=== PATIENT | female | born 1965 | race African-American/Black ===

== ENCOUNTER 2016-06-01 13:41 | Inpatient (IN) | payer OTHER ==
[2016-06-01 13:59] VITALS: BMI 23.5
--- NOTE | 2016-06-01 14:18 | HP ---
CIWA Score - CIWA Score Nausea/Vomitin Muscle Tremors: 3 Anxiety: 3 Agitation: 2 Paroxysmal Sweats: 1-Minimal Palms Moist Orientation: 0-Oriented Tacttile Disturbances: 2-Mild Itch/Numbness/Burn Auditory Disturbances: 2-Mild Harshness/Frighten Visual Disturbances: 2-Mild Sensitivity Headache: 2-Mild CIWA-Ar Total Score: 20 Admission ROS BHS - HPI Chief Complaint: i need help to stop drinking alcohol and cocaine Allergies/Adverse Reactions: Allergies Allergy/AdvReac Type Severity Reaction Status Date / Time lisinopril Allergy Intermediate Swelling Verified 06/01/16 15:27 erythromycin base AdvReac Rash Verified 06/01/16 15:27 sulfamethoxazole AdvReac Rash Verified 06/01/16 15:27 [From Bactrim] trimethoprim [From Bactrim] AdvReac Rash Verified 06/01/16 15:27 History of Present Illness: this 50 years old female with alcohol and cocaine dependence,withdrawal symptom, last detox [facility] 02/04/16 to 02/08/16 multiple admissions to detox htn,asthma,copd,hiv,hypercholesterolemia longest period of sobriety 3 years weight loss nicotine dependence Exam Limitations: No Limitations - Ebola screening Have you traveled outside of the country in the last 21 days: No Have you had contact with anyone from an Ebola affected area: No Have you been sick,other than usual withdrawal symptoms: No Do you have a fever: No - Review of Systems Constitutional: Loss of Appetite, Malaise, Night Sweats, Changes in sleep, Weakness, Unintentional Wgt. Loss EENT: reports: Nose Congestion Respiratory: reports: Wheezing Cardiac: reports: Palpitations GI: reports: Diarrhea, Nausea, Vomiting, Abdominal cramping : reports: No Symptoms Reported Musculoskeletal: reports: Back Pain, Muscle Pain Integumentary: reports: Dryness Neuro: reports: Headache, Tremors Endocrine: reports: No Symptoms Reported Hematology: reports: No Symptoms Reported, Other (hiv) Psychiatric: reports: Depressed Patient History - Patient Medical History Hx Anemia: No Hx Asthma: Yes (on albuterol inhaler) Hx Chronic Obstructive Pulmonary Disease (COPD): Yes Hx Cancer: No Hx Cardiac Disorders: No Hx Congestive Heart Failure: No Hx Hypertension: Yes (on med) Hx Hypercholesterolemia: Yes (on med) Hx Pacemaker: No HX Cerebrovascular Accident: No Hx Seizures: No Hx Dementia: No Hx Diabetes: No Hx Gastrointestinal Disorders: Yes (GERD) Hx Liver Disease: No Hx Genitourinary Disorders: No Hx Sexually Transmitted Disorders: No Hx Renal Disease (ESRD): No Hx Thyroid Disease: No Hx Human Immunodeficiency Virus (HIV): Yes (on Stribild since 2013) Hx Hepatitis C: No Hx Depression: Yes (on meds) Hx Suicide Attempt: No Hx Bipolar Disorder: No Hx Schizophrenia: No Other Medical History: no suicidal,no homicidal - Patient Surgical History Past Surgical History: Yes Hx Neurologic Surgery: No Hx Cataract Extraction: No Hx Cardiac Surgery: No Hx Lung Surgery: No Hx Breast Surgery: No Hx Breast Biopsy: No Hx Abdominal Surgery: No Hx Appendectomy: No Hx Cholecystectomy: No Hx Genitourinary Surgery: No Hx Section: No Hx Orthopedic Surgery: No Other Surgical History: ectopic since age 30 yeras old right ectopic Anesthesia Reaction: No - PPD History Previous Implant?: Yes Documented Results: Negative w/proof Implanted On Prior [facility] Admission?: Yes Date: 07/03/15 Results: 0 mm PPD to be Administered?: No - Reproductive History Patient is a Female of Child Bearing Age (11 -55 yrs old): Yes Last Menstrual Period: 06/13/11 Patient : No - Smoking Cessation Smoking history: Current every day smoker Have you smoked in the past 12 months: Yes Aproximately how many cigarettes per day: 10 Hx Chewing Tobacco Use: No Initiated information on smoking cessation: Yes 'Breaking Loose' booklet given: 06/01/16 - Substance & Tx. History Hx Alcohol Use: Yes Hx Substance Use: Yes Substance Use Type: Alcohol, Cocaine Hx Substance Use Treatment: Yes (last detox 02/04/16 to 02/08/16) - Substances Abused Alcohol Route: Oral Frequency: Daily Amount used: 1/5th of vodka/3 of 24 ozs of beer Age of first use: 16 Date of Last Use: 05/31/16 Cocaine Route: Smoking Frequency: Daily Amount used: 150$ Age of first use: 18 Date of Last Use: 05/31/16 Family Disease History - Family Disease History Family Disease History: Diabetes: Father (alcohol,), Mother (alcohol, ), Heart Disease: Father, Mother, CA: Father, Mother, Respiratory: Father, Daughter Admission Physical Exam BHS - Vital Signs Vital Signs: Vital Signs - 24 hr 06/01/16 13:55 Temperature 96.8 F L Pulse Rate 102 H Respiratory 18 Rate Blood Pressure 137/80 - Physical General Appearance: Yes: Moderate Distress, Tremorous, Irritable, Sweating, Anxious HEENTM: Yes: Nasal Congestion Respiratory: Yes: Lungs Clear Neck: Yes: Within Normal Limits Breast: Yes: Breast Exam Deferred Cardiology: Yes: Tachycardia Abdominal: Yes: Normal Bowel Sounds, Non Tender, Soft Genitourinary: Yes: Within Normal Limits Back: Yes: Muscle Spasm Musculoskeletal: Yes: Back pain, Muscle Pain Extremities: Yes: Tremors Neurological: Yes: staffing coordinator II-XII NML intact, Fully Oriented, Alert, Motor Strength 5/5 Integumentary: Yes: Dry Lymphatic: Yes: Within Normal Limits - Diagnostic (1) Alcohol dependence with withdrawal, uncomplicated Current Visit: No Status: Acute (2) MDD (major depressive disorder) Current Visit: No Status: Acute (3) Asthma Current Visit: No Status: Chronic Qualifiers: Asthma severity: moderate persistent Asthma complication type: with acute exacerbation Qualified Code(s): J45.41 - Moderate persistent asthma with (acute) exacerbation (4) COPD (chronic obstructive pulmonary disease) Current Visit: No Status: Chronic Qualifiers: COPD type: COPD with acute exacerbation Qualified Code(s): J44.1 - Chronic obstructive pulmonary disease with (acute) exacerbation (5) Cocaine dependence Current Visit: No Status: Chronic Qualifiers: Substance use status: uncomplicated Qualified Code(s): F14.20 - Cocaine dependence, uncomplicated (6) Essential hypertension Current Visit: No Status: Chronic (7) GERD (gastroesophageal reflux disease) Current Visit: No Status: Chronic Qualifiers: Esophagitis presence: without esophagitis Qualified Code(s): K21.9 - Gastro-esophageal reflux disease without esophagitis (8) HIV infection Current Visit: No Status: Chronic (9) Nicotine dependence Current Visit: No Status: Chronic Qualifiers: Nicotine product type: cigarettes Substance use status: uncomplicated Qualified Code(s): F17.210 - Nicotine dependence, cigarettes, uncomplicated (10) Weight loss Current Visit: Yes Status: Acute Cleared for Admission BHS - Detox or Rehab S Level of Care: Medically Managed Detox Regimen/Protocol: Librium S Breath Alcohol Content Breath Alcohol Content: 0 Urine Pregancy Test - Result Urine Test Results: Negative- NO Line Present Urine Drug Screen - Results Drug Screen Negative: No Urine Drug Screen Results: CHRISTOPHE-Cocaine, TCA-Tricyclic Antidepress
[2016-06-01] MEDS ORDERED: diphenhydrAMINE HCL 50 MG CAPSULE PO PRN (14:42)
[2016-06-01] MEDS ORDERED: hydrOXYzine PAMOATE 25 MG CAPSULE (FP) PO PRN (14:42)
[2016-06-01] MEDS ORDERED: ACETAMINOPHEN 325 MG TABLET (FP) PO PRN (14:42)
[2016-06-01] MEDS ORDERED: MAG HYDROX/AL HYDROX/SIMETH 30 ML UNIT-DOSE CUP PO PRN (14:42)
[2016-06-01] MEDS ORDERED: MENTHOL/PHENOL 1 EACH UD MM PRN (14:42)
[2016-06-01] MEDS ORDERED: guaiFENesin/D-METHORPHAN HB 10 ML UNIT-DOSE CUPS PO PRN (14:42)
[2016-06-01] MEDS ORDERED: P-EPHED 60MG/TRIPROLIDI 2.5MG TABLET PO PRN (14:42)
[2016-06-01] MEDS ORDERED: chlordiazePOXIDE HCL 25 MG CAPSULE PO ONE (14:42)
[2016-06-01] MEDS ORDERED: MAGNESIUM HYDROX 2400MG/30ML ORAL SUSPENSION 30 ML CUP PO PRN (14:42)
[2016-06-01] MEDS ORDERED: MAGNESIUM CITRATE 300 ML BOTTLE PO PRN (14:42)
[2016-06-01] MEDS ORDERED: LOPERAMIDE HCL 2 MG CAPSULE PO PRN (14:42)
[2016-06-01] MEDS ORDERED: chlordiazePOXIDE HCL 25 MG CAPSULE PO PRN (14:42)
[2016-06-01] MEDS: chlordiazePOXIDE HCL 25 MG CAPSULE PO SCH ×2 (17:37→22:36)
[2016-06-01] MEDS: ALBUTEROL SO4 6.7 GM HFA INHALER IH PRN (20:12)
[2016-06-01] MEDS: THIAMINE HCL 100 MG TABLET (FP) PO SCH (22:35)
[2016-06-01] MEDS: ATORVASTATIN CA 20 MG TABLET (FP) PO SCH (22:36)
[2016-06-01] MEDS: ACLIDINIUM BROMIDE 400 MCG/INH AERO.POWD IH SCH (23:36)
[2016-06-02] MEDS: chlordiazePOXIDE HCL 25 MG CAPSULE PO SCH ×4 (05:54→22:30)
[2016-06-02] MEDS: ALBUTEROL SO4 6.7 GM HFA INHALER IH PRN ×2 (05:55→14:04)
[2016-06-02] MEDS: amLODIPine BESYLATE 10 MG TABLET (FP) PO SCH (09:30)
[2016-06-02] MEDS: HYDROCHLOROTHIAZIDE 25 MG TABLET (FP) PO SCH (09:30)
[2016-06-02] MEDS: ASPIRIN COATED 81 MG TABLET.EC PO SCH (09:30)
[2016-06-02] MEDS: PRENATAL VITAMINS W/ FOLIC ACID TABLET (FP) PO SCH (09:30)
[2016-06-02] MEDS: PANTOPRAZOLE 40 MG TABLET (FP) PO SCH (09:30)
[2016-06-02 10:32] LABS: MCH 28.2 pg (25.7-33.7); MCHC 33.4 g/dl (32.0-36.0); MEAN CELL VOLUME 84.5 fl (80-96); MEAN PLT VOLUME 7.9 fl (7.5-11.1); PLATELET COUNT 259 K/MM3 (134-434); RDW 15.9 % (11.6-15.6); WHITE BLOOD COUNT 5.6 K/mm3 (4.0-10.0)
[2016-06-02 10:55] LABS: ALBUMIN 3.2 g/dl (3.4-5.0); ALK PHOS 117 U/L (45-117); ANION GAP 9 (8-16); BILIRUBIN,TOTAL 0.2 mg/dL (0.2-1.0); CALCIUM 8.4 mg/dL (8.5-10.1); CO2 27 mmol/L (21-32); CREATININE 0.9 mg/dL (0.55-1.02); GLUCOSE,RANDOM 75 mg/dL (74-106); SGOT/AST 25 U/L (15-37); SGPT/ALT 29 U/L (12-78); TOT PROT 6.7 g/dl (6.4-8.2)
[2016-06-02] MEDS: ACLIDINIUM BROMIDE 400 MCG/INH AERO.POWD IH SCH (11:59)
[2016-06-02] MEDS ORDERED: POTASSIUM CHLORIDE TABS 20 MEQ TABLET.ER (FP) PO ONE (13:04)
--- NOTE | 2016-06-02 13:04 | PN ---
S CIWA - CIWA Score Nausea/Vomitin Muscle Tremors: 3 Anxiety: 3 Agitation: 3 Paroxysmal Sweats: 2 Orientation: 0-Oriented Tacttile Disturbances: 1-Very Mild Itch/Numbness Auditory Disturbances: 1-Very Mild Visual Disturbances: 1-Very Mild Sensitivity Headache: 2-Mild CIWA-Ar Total Score: 19 BHS Progress Note (SOAP) Subjective: alert,irritable,anxious,interrupted sleep,tremor,nausea Objective: 06/02/16 13:01 Vital Signs Temperature 97.9 F 06/02/16 09:37 Pulse Rate 91 H 06/02/16 09:37 Respiratory Rate 18 06/02/16 09:37 Blood Pressure 152/98 06/02/16 09:37 O2 Sat by Pulse Oximetry (%) ekg nsr with 1st degree av block no chest pain,no sob,no dizziness Laboratory Last Values WBC 5.6 K/mm3 (4.0-10.0) 06/02/16 07:45 RBC 4.32 M/mm3 (3.60-5.2) 06/02/16 07:45 Hgb 12.2 GM/dL (10.7-15.3) 06/02/16 07:45 Hct 36.5 % (32.4-45.2) 06/02/16 07:45 MCV 84.5 fl (80-96) 06/02/16 07:45 MCHC 33.4 g/dl (32.0-36.0) 06/02/16 07:45 RDW 15.9 % (11.6-15.6) H 06/02/16 07:45 Plt Count 259 K/MM3 (134-434) 06/02/16 07:45 MPV 7.9 fl (7.5-11.1) 06/02/16 07:45 Sodium 143 mmol/L (136-145) 06/02/16 07:45 Potassium 3.1 mmol/L (3.5-5.1) L 06/02/16 07:45 Chloride 107 mmol/L (98-107) 06/02/16 07:45 Carbon Dioxide 27 mmol/L (21-32) 06/02/16 07:45 Anion Gap 9 (8-16) 06/02/16 07:45 BUN 13 mg/dL (7-18) D 06/02/16 07:45 Creatinine 0.9 mg/dL (0.55-1.02) 06/02/16 07:45 Creat Clearance w eGFR > 60 (>60) 06/02/16 07:45 Random Glucose 75 mg/dL (74-106) D 06/02/16 07:45 Calcium 8.4 mg/dL (8.5-10.1) L 06/02/16 07:45 Total Bilirubin 0.2 mg/dL (0.2-1.0) D 06/02/16 07:45 AST 25 U/L (15-37) D 06/02/16 07:45 ALT 29 U/L (12-78) D 06/02/16 07:45 Alkaline Phosphatase 117 U/L (45-117) 06/02/16 07:45 Total Protein 6.7 g/dl (6.4-8.2) 06/02/16 07:45 Albumin 3.2 g/dl (3.4-5.0) L 06/02/16 07:45 labs pending hypokalemia Assessment: 06/02/16 13:03 withdrawal symptom Plan: continue detox,k dur 20 meq po now then bid,k is 3.1
[2016-06-02] MEDS: ATORVASTATIN CA 20 MG TABLET (FP) PO SCH (22:30)
[2016-06-02] MEDS: THIAMINE HCL 100 MG TABLET (FP) PO SCH (22:30)
[2016-06-02] MEDS: POTASSIUM CHLORIDE TABS 20 MEQ TABLET.ER (FP) PO SCH (22:30)
[2016-06-03] MEDS: ACLIDINIUM BROMIDE 400 MCG/INH AERO.POWD IH SCH ×3 (00:12→22:43)
--- NOTE | 2016-06-03 00:48 | EKG ---
Test Reason : Blood Pressure : / mmHG Vent. Rate : 083 BPM Atrial Rate : 083 BPM P-R Int : 212 ms QRS Dur : 090 ms QT Int : 398 ms P-R-T Axes : 074 054 077 degrees QTc Int : 467 ms SINUS RHYTHM WITH 1ST DEGREE A-V BLOCK POSSIBLE LEFT ATRIAL ENLARGEMENT ANTEROSEPTAL INFARCT , AGE UNDETERMINED POOR R WAVE PROGRESSION ABNORMAL ECG NO PREVIOUS ECGS AVAILABLE Confirmed by ONEIL BELCHER, RAHEL ([id number]) on 06/03/2016 12:48:08 AM Referred By: Confirmed By:RAHEL RIGGS MD
[2016-06-03] MEDS: ALBUTEROL SO4 2.5/IPRATROPIUM 0.5 INH SOL 3 ML VIAL.NEB. NEB PRN ×2 (04:55→14:09)
[2016-06-03] MEDS: chlordiazePOXIDE HCL 25 MG CAPSULE PO SCH ×2 (06:03→10:36)
[2016-06-03 10:24] LABS: URINE APPEARANCE CLEAR; URINE BILIRUBIN NEGATIVE (NEGATIVE); URINE BLOOD NEGATIVE (NEGATIVE); URINE COLOR STRAW; URINE GLUCOSE (UA) NEGATIVE (NEGATIVE); URINE KETONE NEGATIVE (NEGATIVE); URINE LEUK ESTERASE NEGATIVE (NEGATIVE); URINE NITRITE NEGATIVE (NEGATIVE); URINE PROTEIN NEGATIVE (NEGATIVE); URINE UROBILINOGEN NEGATIVE E.U./dl (0.2-1.0)
[2016-06-03] MEDS: PRENATAL VITAMINS W/ FOLIC ACID TABLET (FP) PO SCH (10:36)
[2016-06-03] MEDS: POTASSIUM CHLORIDE TABS 20 MEQ TABLET.ER (FP) PO SCH ×2 (10:37→22:27)
[2016-06-03] MEDS: ASPIRIN COATED 81 MG TABLET.EC PO SCH (10:37)
[2016-06-03] MEDS: amLODIPine BESYLATE 10 MG TABLET (FP) PO SCH (10:37)
[2016-06-03] MEDS: HYDROCHLOROTHIAZIDE 25 MG TABLET (FP) PO SCH (10:37)
[2016-06-03] MEDS: PANTOPRAZOLE 40 MG TABLET (FP) PO SCH (10:37)
[2016-06-03] MEDS: HYDROCORTISONE 1% TOPICAL CREAM 30 GM TUBE TP SCH ×2 (10:40→22:27)
--- NOTE | 2016-06-03 11:54 | CONSULT ---
[facility] - Data Date of interview: 06/03/16 [facility] Identifying data: Readmission to [facility] for this 51 y/o AA female seeking detox treatment on for alcohol and cocaine dependence.Patient is ,a mother of two,domiciled,unemployed and supported on [employer] funds. Substance Abuse History: - Smoking Cessation. Smoking history: Current every day smoker. Have you smoked in the past 12 months: Yes. Aproximately how many cigarettes per day: 10. Hx Chewing Tobacco Use: No. Initiated information on smoking cessation: Yes. 'Breaking Loose' booklet given: 06/01/16. - Substance & Tx. History. Hx Alcohol Use: Yes. Hx Substance Use: Yes. Substance Use Type : Alcohol, Cocaine. Hx Substance Use Treatment: Yes (last detox 02/04/16 to ). - Substances Abused. Alcohol. Route: Oral. Frequency: Daily. Amount used: 1/5th of vodka/3 of 24 ozs of beer. Age of first use: 16. Date of Last Use: 05/31/16. Cocaine. Route: Smoking. Frequency: Daily. Amount used: 150$. Age of first use: 18. Date of Last Use: 05/31/16. Patient confirmed this pattern of substance use in my interview. Medical History: HIV infection since 2013 (on ART medications),hypertension,COPD ,GERD,bronchial asthma and hypercholesterolemia.Noted past history of ectopic . Psychiatric History: No reported history of psychiatric hospitalizations.Screened for depressive disorder at [facility] (2013 ) and referred to OPD clinic with script for sertraline.Ms Lopez did not follow through with the recommended careplan.She returned to follow up months later and ,this time,she maintains adherence to medications prescribed by her psychiatrist at the [facility] in the [place] (formerly [facility] ).Medications consist of seroquel 400 mg/hs + zoloft 50 mg/day (self-report) .Patient denies history of suicide attempts. Physical/Sexual Abuse/Trauma History: Patient denies. Additional Comment: Urine Drug Screen Results: CHRISTOPHE-Cocaine, TCA-Tricyclic Antidepressants.Noted. Mental Status Exam - Mental Status Exam Alert and Oriented to: Time, Place, Person Cognitive Function: Good Patient Appearance: Well Groomed Mood: Withdrawn, Hopeful Affect: Appropriate, Normal Range Patient Behavior: Fatigued, Appropriate, Cooperative Speech Pattern: Clear Voice Loudness: Normal Thought Process: Goal Oriented Thought Disorder: Not Present Hallucinations: Denies Suicidal Ideation: Denies Homicidal Ideation: Denies Insight/Judgement: Poor Sleep: Poorly, Difficulty falling asleep Appetite: Good Muscle strength/Tone: Normal Gait/Station: Normal Psychiatric Findings - Problem List ([place] 1, 2,3) (1) Alcohol dependence with withdrawal, uncomplicated Current Visit: Yes Status: Acute (2) Cocaine dependence Current Visit: Yes Status: Acute Qualifiers: Substance use status: uncomplicated Qualified Code(s): F14.20 - Cocaine dependence, uncomplicated (3) Nicotine dependence Current Visit: Yes Status: Acute Qualifiers: Nicotine product type: cigarettes Substance use status: uncomplicated Qualified Code(s): F17.210 - Nicotine dependence, cigarettes, uncomplicated (4) Drug-induced mood disorder Current Visit: Yes Status: Acute (5) MDD (major depressive disorder) Current Visit: Yes Status: Chronic (6) Asthma Current Visit: Yes Status: Chronic Qualifiers: Asthma severity: moderate persistent Asthma complication type: with acute exacerbation Qualified Code(s): J45.41 - Moderate persistent asthma with (acute) exacerbation (7) COPD (chronic obstructive pulmonary disease) Current Visit: Yes Status: Chronic Qualifiers: COPD type: COPD with acute exacerbation Qualified Code(s): J44.1 - Chronic obstructive pulmonary disease with (acute) exacerbation (8) Essential hypertension Current Visit: Yes Status: Chronic (9) GERD (gastroesophageal reflux disease) Current Visit: Yes Status: Chronic Qualifiers: Esophagitis presence: without esophagitis Qualified Code(s): K21.9 - Gastro-esophageal reflux disease without esophagitis - Initial Treatment Plan Initial Treatment Plan: Psychoeducation.Detoxification.Medications : zoloft 100 mg po daily + seroquel 100 mg po hs.Side effects/benefits discussed with the patient.She agrees with this plan.Observation.
--- NOTE | 2016-06-03 12:31 | PN ---
S CIWA - CIWA Score Nausea/Vomitin Muscle Tremors: 3 Anxiety: 2 Agitation: 3 Paroxysmal Sweats: 1-Minimal Palms Moist Orientation: 0-Oriented Tacttile Disturbances: 1-Very Mild Itch/Numbness Auditory Disturbances: 1-Very Mild Visual Disturbances: 1-Very Mild Sensitivity Headache: 2-Mild CIWA-Ar Total Score: 17 BHS Progress Note (SOAP) Subjective: ALERT,IRRITABLE,ANXIOUS,INTERRUPTED SLEEP,TREMOR Objective: 06/03/16 12:30 Vital Signs Temperature 97.0 F L 06/03/16 10:00 Pulse Rate 97 H 06/03/16 10:00 Respiratory Rate 20 06/03/16 10:00 Blood Pressure 155/96 06/03/16 10:00 O2 Sat by Pulse Oximetry (%) Laboratory Last Values WBC 5.6 K/mm3 (4.0-10.0) 06/02/16 07:45 RBC 4.32 M/mm3 (3.60-5.2) 06/02/16 07:45 Hgb 12.2 GM/dL (10.7-15.3) 06/02/16 07:45 Hct 36.5 % (32.4-45.2) 06/02/16 07:45 MCV 84.5 fl (80-96) 06/02/16 07:45 MCHC 33.4 g/dl (32.0-36.0) 06/02/16 07:45 RDW 15.9 % (11.6-15.6) H 06/02/16 07:45 Plt Count 259 K/MM3 (134-434) 06/02/16 07:45 MPV 7.9 fl (7.5-11.1) 06/02/16 07:45 Sodium 143 mmol/L (136-145) 06/02/16 07:45 Potassium 3.1 mmol/L (3.5-5.1) L 06/02/16 07:45 Chloride 107 mmol/L (98-107) 06/02/16 07:45 Carbon Dioxide 27 mmol/L (21-32) 06/02/16 07:45 Anion Gap 9 (8-16) 06/02/16 07:45 BUN 13 mg/dL (7-18) D 06/02/16 07:45 Creatinine 0.9 mg/dL (0.55-1.02) 06/02/16 07:45 Creat Clearance w eGFR > 60 (>60) 06/02/16 07:45 Random Glucose 75 mg/dL (74-106) D 06/02/16 07:45 Calcium 8.4 mg/dL (8.5-10.1) L 06/02/16 07:45 Total Bilirubin 0.2 mg/dL (0.2-1.0) D 06/02/16 07:45 AST 25 U/L (15-37) D 06/02/16 07:45 ALT 29 U/L (12-78) D 06/02/16 07:45 Alkaline Phosphatase 117 U/L (45-117) 06/02/16 07:45 Total Protein 6.7 g/dl (6.4-8.2) 06/02/16 07:45 Albumin 3.2 g/dl (3.4-5.0) L 06/02/16 07:45 Urine Color Straw 06/03/16 07:00 Urine Appearance Clear 06/03/16 07:00 Urine pH 7.0 (5.0-8.0) 06/03/16 07:00 Ur Specific [place] 1.010 (1.001-1.035) 06/03/16 07:00 Urine Protein Negative (NEGATIVE) 06/03/16 07:00 Urine Glucose (UA) Negative (NEGATIVE) 06/03/16 07:00 Urine Ketones Negative (NEGATIVE) 06/03/16 07:00 Urine Blood Negative (NEGATIVE) 06/03/16 07:00 Urine Nitrite Negative (NEGATIVE) 06/03/16 07:00 Urine Bilirubin Negative (NEGATIVE) 06/03/16 07:00 Urine Urobilinogen Negative E.U./dl (0.2-1.0) 06/03/16 07:00 Ur Leukocyte Esterase Negative (NEGATIVE) 06/03/16 07:00 RPR Titer Nonreactive (NONREACTIVE) 06/02/16 07:45 Assessment: 06/03/16 12:30 WITHDRAWAL SYMPTOM Plan: CONTINUE DETOX
[2016-06-03] MEDS: IBUPROFEN 400 MG TABLET (FP) PO PRN (14:21)
[2016-06-03] MEDS: chlordiazePOXIDE 5 MG CAPSULE PO SCH ×2 (17:18→22:27)
[2016-06-03] MEDS: QUEtiapine FUMARATE 100 MG TABLET (FP) PO SCH (22:27)
[2016-06-03] MEDS: THIAMINE HCL 100 MG TABLET (FP) PO SCH (22:27)
[2016-06-03] MEDS: ATORVASTATIN CA 20 MG TABLET (FP) PO SCH (22:27)
[2016-06-04] MEDS: chlordiazePOXIDE 5 MG CAPSULE PO SCH ×2 (05:39→10:52)
[2016-06-04] MEDS: IBUPROFEN 400 MG TABLET (FP) PO PRN (08:00)
[2016-06-04] MEDS: ASPIRIN COATED 81 MG TABLET.EC PO SCH (10:51)
[2016-06-04] MEDS: HYDROCHLOROTHIAZIDE 25 MG TABLET (FP) PO SCH (10:51)
[2016-06-04] MEDS: SERTRALINE HCL 50 MG TABLET (FP) PO SCH (10:51)
[2016-06-04] MEDS: PANTOPRAZOLE 40 MG TABLET (FP) PO SCH (10:51)
[2016-06-04] MEDS: amLODIPine BESYLATE 10 MG TABLET (FP) PO SCH (10:51)
[2016-06-04] MEDS: HYDROCORTISONE 1% TOPICAL CREAM 30 GM TUBE TP SCH ×2 (10:52→22:28)
[2016-06-04] MEDS: POTASSIUM CHLORIDE TABS 20 MEQ TABLET.ER (FP) PO SCH ×2 (10:52→22:28)
[2016-06-04] MEDS: ACLIDINIUM BROMIDE 400 MCG/INH AERO.POWD IH SCH ×2 (10:55→22:28)
[2016-06-04] MEDS: PRENATAL VITAMINS W/ FOLIC ACID TABLET (FP) PO SCH (10:55)
--- NOTE | 2016-06-04 13:16 | PN ---
BHS Progress Note (SOAP) Subjective: interrupted sleep Objective: 06/04/16 13:14 Vital Signs Temperature 97.2 F L 06/04/16 10:14 Pulse Rate 99 H 06/04/16 10:14 Respiratory Rate 18 06/04/16 10:14 Blood Pressure 141/86 06/04/16 10:14 O2 Sat by Pulse Oximetry (%) Laboratory Tests 06/02/16 06/02/16 06/02/16 07:45 07:45 07:45 WBC 5.6 RBC 4.32 Hgb 12.2 Hct 36.5 MCV 84.5 MCHC 33.4 RDW 15.9 H Plt Count 259 MPV 7.9 Sodium 143 Potassium 3.1 L Chloride 107 Carbon Dioxide 27 Anion Gap 9 BUN 13 D Creatinine 0.9 Creat Clearance w eGFR > 60 Random Glucose 75 D Calcium 8.4 L Total Bilirubin 0.2 D AST 25 D ALT 29 D Alkaline Phosphatase 117 Total Protein 6.7 Albumin 3.2 L Urine Color Urine Appearance Urine pH Ur Specific [place] Urine Protein Urine Glucose (UA) Urine Ketones Urine Blood Urine Nitrite Urine Bilirubin Urine Urobilinogen Ur Leukocyte Esterase RPR Titer Nonreactive 06/03/16 07:00 WBC RBC Hgb Hct MCV MCHC RDW Plt Count MPV Sodium Potassium Chloride Carbon Dioxide Anion Gap BUN Creatinine Creat Clearance w eGFR Random Glucose Calcium Total Bilirubin AST ALT Alkaline Phosphatase Total Protein Albumin Urine Color Straw Urine Appearance Clear Urine pH 7.0 Ur Specific [place] 1.010 Urine Protein Negative Urine Glucose (UA) Negative Urine Ketones Negative Urine Blood Negative Urine Nitrite Negative Urine Bilirubin Negative Urine Urobilinogen Negative Ur Leukocyte Esterase Negative RPR Titer pt aox3 in nad ambulating Assessment: 06/04/16 13:15 withdrawl sx's Plan: cont. detox increase fluids d/c in am
[2016-06-04] MEDS: chlordiazePOXIDE HCL 10 MG CAPSULE PO SCH ×2 (16:53→22:28)
[2016-06-04] MEDS: THIAMINE HCL 100 MG TABLET (FP) PO SCH (22:28)
[2016-06-04] MEDS: ATORVASTATIN CA 20 MG TABLET (FP) PO SCH (22:28)
[2016-06-04] MEDS: QUEtiapine FUMARATE 100 MG TABLET (FP) PO SCH (22:28)
[2016-06-05] MEDS: chlordiazePOXIDE HCL 10 MG CAPSULE PO SCH ×2 (05:53→10:08)
--- NOTE | 2016-06-05 09:06 | DS ---
[facility] Detox Discharge Summary Admission Date: 06/01/16 Discharge Date: 06/05/16 - History Present History: Alcohol Dependence, Cocaine Dependence - Physical Exam Results Vital Signs: Vital Signs Temperature 96.3 F L 06/05/16 06:00 Pulse Rate 79 06/05/16 06:00 Respiratory Rate 18 06/05/16 06:00 Blood Pressure 143/78 06/05/16 06:00 O2 Sat by Pulse Oximetry (%) - Treatment Hospital Course: Detox Protocol Followed, Detoxed Safely, Responded well, Discharged Condition Good, Rehab Referral Accepted - Medication Discharge Medications: Ambulatory Orders Albuterol Sulfate Inhaler - [Ventolin HFA Inhaler -] 2 inh PO Q4H PRN #1 inh Sertraline HCl [Zoloft -] 100 mg PO DAILY 07/01/15 Tiotropium [place] [Spiriva] 18 mcg IH DAILY 07/01/15 Aclidinium [place] [Tudorza -] 1 puff PO BID #1 inhaler 07/05/15 Amlodipine Besylate [Norvasc -] 10 mg PO DAILY #30 tablet 07/05/15 Aspirin Coated [Ecotrin -] 81 mg PO DAILY #30 tablet.ec 07/05/15 Atorvastatin Ca [Lipitor] 20 mg PO HS #30 tablet 07/05/15 Hydrochlorothiazide [Hctz -] 25 mg PO DAILY #30 tablet 07/05/15 Pantoprazole Sodium [Protonix -] 40 mg PO DAILY #30 tablet.ec 07/05/15 Quetiapine Fumarate [Seroquel -] 100 mg PO HS #30 tablet 07/05/15 Elviteg/Myriam/Emtric/Tenofo Dis [Stribild Tablet] 1 tab PO AM 02/07/16 Quetiapine Fumarate [Seroquel] 100 mg PO HS #30 tablet 06/03/16 Sertraline HCl [Zoloft] 100 mg PO DAILY #30 tablet 06/03/16 - Diagnosis (1) Alcohol dependence with withdrawal, uncomplicated Current Visit: Yes Status: Chronic (2) Cocaine dependence Current Visit: Yes Status: Chronic Qualifiers: Substance use status: uncomplicated Qualified Code(s): F14.20 - Cocaine dependence, uncomplicated (3) Drug-induced mood disorder Current Visit: Yes Status: Acute (4) Nicotine dependence Current Visit: Yes Status: Chronic Qualifiers: Nicotine product type: cigarettes Substance use status: uncomplicated Qualified Code(s): F17.210 - Nicotine dependence, cigarettes, uncomplicated (5) Weight loss Current Visit: Yes Status: Acute (6) Asthma Current Visit: Yes Status: Chronic Qualifiers: Asthma severity: moderate persistent Asthma complication type: with acute exacerbation Qualified Code(s): J45.41 - Moderate persistent asthma with (acute) exacerbation (7) COPD (chronic obstructive pulmonary disease) Current Visit: Yes Status: Chronic Qualifiers: COPD type: COPD with acute exacerbation Qualified Code(s): J44.1 - Chronic obstructive pulmonary disease with (acute) exacerbation (8) Essential hypertension Current Visit: Yes Status: Chronic (9) GERD (gastroesophageal reflux disease) Current Visit: Yes Status: Chronic Qualifiers: Esophagitis presence: without esophagitis Qualified Code(s): K21.9 - Gastro-esophageal reflux disease without esophagitis (10) MDD (major depressive disorder) Current Visit: Yes Status: Chronic (11) Blackout Current Visit: No Status: Acute (12) Depressive disorder Current Visit: No Status: Acute (13) Hypokalemia Current Visit: No Status: Acute (14) HIV infection Current Visit: No Status: Chronic (15) Heart murmur Current Visit: No Status: Chronic (16) Palpitations Current Visit: No Status: Chronic - AMA Did Patient Leave Against Medical Advice: No
[2016-06-05] MEDS: amLODIPine BESYLATE 10 MG TABLET (FP) PO SCH (09:23)
[2016-06-05] MEDS: SERTRALINE HCL 50 MG TABLET (FP) PO SCH (09:23)
[2016-06-05] MEDS: PANTOPRAZOLE 40 MG TABLET (FP) PO SCH (09:23)
[2016-06-05] MEDS: HYDROCORTISONE 1% TOPICAL CREAM 30 GM TUBE TP SCH (09:24)
[2016-06-05] MEDS: POTASSIUM CHLORIDE TABS 20 MEQ TABLET.ER (FP) PO SCH (09:24)
[2016-06-05] MEDS: HYDROCHLOROTHIAZIDE 25 MG TABLET (FP) PO SCH (09:24)
[2016-06-05] MEDS: ASPIRIN COATED 81 MG TABLET.EC PO SCH (09:24)
[2016-06-05] MEDS: PRENATAL VITAMINS W/ FOLIC ACID TABLET (FP) PO SCH (09:24)
[2016-06-05] MEDS: ACLIDINIUM BROMIDE 400 MCG/INH AERO.POWD IH SCH (10:09)
[2016-06-05 10:25] VITALS: BP 136/95; PULSE 90; TEMP 97.9
== END 2016-06-05 13:14 | disposition home or self-care (01) | DRG 774 ==
LOC: YASAS 13:41 → Y6N 15:40
PROVIDERS: ADMIT Internal Medicine; ATTEND Internal Medicine Addiction Medicine
PROC: HZ2ZZZZ Detoxification Services for Substance Abuse Treatment (ICD-10-PCS; principal; 2016-06-01)
DX: F10.230 Alcohol dependence with withdrawal, uncomplicated (principal); F14.20 Cocaine dependence, uncomplicated; F17.210 Nicotine dependence, cigarettes, uncomplicated; F19.24 Other psychoactive substance dependence with psychoactive substance-induced mood disorder; F33.9 Major depressive disorder, recurrent, unspecified; J45.41 Moderate persistent asthma with (acute) exacerbation; J44.1 Chronic obstructive pulmonary disease with (acute) exacerbation; I10 Essential (primary) hypertension; K21.9 Gastro-esophageal reflux disease without esophagitis; E87.6 Hypokalemia; Z21 Asymptomatic human immunodeficiency virus [HIV] infection status; R01.1 Cardiac murmur, unspecified; R00.2 Palpitations; I44.0 Atrioventricular block, first degree; Z86.69 Personal history of other diseases of the nervous system and sense organs; Z87.898 Personal history of other specified conditions
CPT/HCPCS: 36415; 80053; 81003; 85027; 86593; 93005; 93010; 94640

== ENCOUNTER 2016-09-27 09:52 | Inpatient (IN) | payer OTHER ==
[2016-09-27 10:16] VITALS: BMI 23.6
--- NOTE | 2016-09-27 13:21 | HP ---
CIWA Score - CIWA Score Nausea/Vomitin Muscle Tremors: 3 Anxiety: 3 Agitation: 3 Paroxysmal Sweats: 2 Orientation: 0-Oriented Tacttile Disturbances: 2-Mild Itch/Numbness/Burn Auditory Disturbances: 2-Mild Harshness/Frighten Visual Disturbances: 2-Mild Sensitivity Headache: 2-Mild CIWA-Ar Total Score: 22 Admission ROS BHS - HPI Chief Complaint: i need help to stop drinking alcohol,cocaine dependene Allergies/Adverse Reactions: Allergies Allergy/AdvReac Type Severity Reaction Status Date / Time lisinopril Allergy Intermediate Swelling Verified 09/27/16 11:04 erythromycin base AdvReac Rash Verified 09/27/16 11:04 sulfamethoxazole AdvReac Rash Verified 09/27/16 11:04 [From Bactrim] trimethoprim [From Bactrim] AdvReac Rash Verified 09/27/16 11:04 History of Present Illness: this 51 years old black female with alcohol and cocaine dependence,seeking detox ,last detox [facility] 06/01/16 to 06/05/16 syncope multiple medical problem hypertension,asthma,copd,hypercholesterolemia depression multiple admissions in detox but relapse longest period of sobriety 4 years Exam Limitations: No Limitations - Ebola screening Have you traveled outside of the country in the last 21 days: No Have you had contact with anyone from an Ebola affected area: No Have you been sick,other than usual withdrawal symptoms: No Do you have a fever: No - Review of Systems Constitutional: Loss of Appetite, Malaise, Night Sweats, Changes in sleep, Weakness, Unintentional Wgt. Loss EENT: reports: Nose Congestion Respiratory: reports: No Symptoms reported, Other (asthma,copd) Patient History - Patient Medical History Hx Anemia: No Hx Asthma: Yes (on albuterol inhaler) Hx Chronic Obstructive Pulmonary Disease (COPD): Yes Hx Cancer: No Hx Cardiac Disorders: No Hx Congestive Heart Failure: No Hx Hypertension: Yes (on med) Hx Hypercholesterolemia: Yes (on med) Hx Pacemaker: No HX Cerebrovascular Accident: No Hx Seizures: No Hx Dementia: No Hx Diabetes: No Hx Gastrointestinal Disorders: No Hx Liver Disease: No Hx Genitourinary Disorders: No Hx Sexually Transmitted Disorders: Yes (sphyllis/GC/chlymydia as teenager) Hx Renal Disease (ESRD): No Hx Thyroid Disease: No Hx Human Immunodeficiency Virus (HIV): Yes (on Stribild since 2013) Hx Hepatitis C: No Hx Depression: Yes Hx Suicide Attempt: Yes (over dose) Hx Bipolar Disorder: No Hx Schizophrenia: No Other Medical History: no suicidal,no homicidal - Patient Surgical History Past Surgical History: Yes Hx Neurologic Surgery: No Hx Cataract Extraction: No Hx Cardiac Surgery: No Hx Lung Surgery: No Hx Breast Surgery: No Hx Breast Biopsy: No Hx Abdominal Surgery: No Hx Appendectomy: No Hx Cholecystectomy: No Hx Genitourinary Surgery: No Hx Section: No Hx Orthopedic Surgery: No Other Surgical History: ectopic since age 30 yeras old right ectopic Anesthesia Reaction: No - PPD History Previous Implant?: Yes Documented Results: Negative w/proof Implanted On Prior [facility] Admission?: Yes Date: 07/03/15 Results: 0 mm PPD to be Administered?: Yes - Reproductive History Patient is a Female of Child Bearing Age (11 -55 yrs old): Yes Last Menstrual Period: 06/13/11 Patient : No - Smoking Cessation Smoking history: Current every day smoker Have you smoked in the past 12 months: Yes Aproximately how many cigarettes per day: 20 Hx Chewing Tobacco Use: No Initiated information on smoking cessation: Yes 'Breaking Loose' booklet given: 09/27/16 - Substance & Tx. History Hx Alcohol Use: Yes Hx Substance Use: Yes Substance Use Type: Alcohol, Cocaine - Substances Abused Alcohol Route: Oral Frequency: Daily Amount used: vodka(1 pint)/ 3 cobra-24 oz cans Age of first use: 16 Date of Last Use: 09/27/16 Cocaine Route: Smoking Frequency: Daily Age of first use: 18 Date of Last Use: 09/27/16 Family Disease History - Family Disease History Family Disease History: Diabetes: Father (alcohol,), Mother (alcohol, ), Heart Disease: Father, Mother, CA: Father, Mother, Respiratory: Father, Daughter Admission Physical Exam S - Vital Signs Vital Signs: Vital Signs - 24 hr 09/27/16 10:08 Temperature 98.9 F Pulse Rate 81 Respiratory 20 Rate Blood Pressure 166/112 - Physical General Appearance: Yes: Moderate Distress, Tremorous, Irritable, Sweating, Anxious HEENTM: Yes: Hearing grossly Normal, DAIANA, Pharynx Normal Respiratory: Yes: Within Normal Limits, Lungs Clear, Normal Breath Sounds Neck: Yes: Within Normal Limits, Supple, Trachea in good position Breast: Yes: Breast Exam Deferred Cardiology: Yes: Within Normal Limits, Regular Rhythm, Regular Rate, S1, S2 Abdominal: Yes: Within Normal Limits, Normal Bowel Sounds, Non Tender, Soft Genitourinary: Yes: Within Normal Limits Back: Yes: Normal Inspection, Muscle Spasm Musculoskeletal: Yes: Back pain, Muscle Pain Extremities: Yes: Within Normal Limits, Normal Range of Motion, Tremors Neurological: Yes: 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 NML intact, Fully Oriented, Alert, Motor Strength 5/5 Integumentary: Yes: Dry Lymphatic: Yes: Within Normal Limits - Diagnostic (1) Alcohol dependence with withdrawal, uncomplicated Current Visit: Yes Status: Acute (2) Asthma Current Visit: Yes Status: Chronic Qualifiers: Asthma severity: moderate persistent Asthma complication type: with acute exacerbation Qualified Code(s): J45.41 - Moderate persistent asthma with (acute) exacerbation (3) COPD (chronic obstructive pulmonary disease) Current Visit: Yes Status: Chronic Qualifiers: COPD type: COPD with acute exacerbation Qualified Code(s): J44.1 - Chronic obstructive pulmonary disease with (acute) exacerbation (4) Cocaine dependence Current Visit: Yes Status: Chronic Qualifiers: Substance use status: uncomplicated Qualified Code(s): F14.20 - Cocaine dependence, uncomplicated (5) Essential hypertension Current Visit: Yes Status: Chronic (6) GERD (gastroesophageal reflux disease) Current Visit: Yes Status: Chronic Qualifiers: Esophagitis presence: without esophagitis Qualified Code(s): K21.9 - Gastro-esophageal reflux disease without esophagitis (7) HIV infection Current Visit: Yes Status: Chronic (8) Hypercholesterolemia Current Visit: Yes Status: Acute (9) Weight loss Current Visit: No Status: Acute Cleared for Admission [facility] - Detox or Rehab [facility] Level of Care: Medically Managed Detox Regimen/Protocol: Librium [facility] Breath Alcohol Content Breath Alcohol Content: 0 Urine Pregancy Test - Result Urine Test Results: Negative- NO Line Present Urine Drug Screen - Results Urine Drug Screen Results: CHRISTOPHE-Cocaine
[2016-09-27] MEDS ORDERED: LOPERAMIDE HCL 2 MG CAPSULE PO PRN (13:35)
[2016-09-27] MEDS ORDERED: guaiFENesin/D-METHORPHAN HB 10 ML UNIT-DOSE CUPS PO PRN (13:35)
[2016-09-27] MEDS ORDERED: P-EPHED 60MG/TRIPROLIDI 2.5MG TABLET PO PRN (13:35)
[2016-09-27] MEDS ORDERED: IBUPROFEN 400 MG TABLET (FP) PO PRN (13:35)
[2016-09-27] MEDS ORDERED: MAG HYDROX/AL HYDROX/SIMETH 30 ML UNIT-DOSE CUP PO PRN (13:35)
[2016-09-27] MEDS ORDERED: MAGNESIUM CITRATE 300 ML BOTTLE PO PRN (13:35)
[2016-09-27] MEDS ORDERED: MENTHOL/PHENOL 1 EACH UD MM PRN (13:35)
[2016-09-27] MEDS ORDERED: ACETAMINOPHEN 325 MG TABLET (FP) PO PRN (13:35)
[2016-09-27] MEDS ORDERED: MAGNESIUM HYDROX 2400MG/30ML ORAL SUSPENSION 30 ML CUP PO PRN (13:35)
[2016-09-27] MEDS ORDERED: diphenhydrAMINE HCL 50 MG CAPSULE PO PRN (13:35)
[2016-09-27] MEDS ORDERED: chlordiazePOXIDE HCL 25 MG CAPSULE PO PRN (13:35)
[2016-09-27] MEDS ORDERED: hydrOXYzine PAMOATE 25 MG CAPSULE (FP) PO PRN (13:35)
[2016-09-27] MEDS ORDERED: ALBUTEROL SO4 6.7 GM HFA INHALER IH PRN (13:40)
[2016-09-27] MEDS ORDERED: chlordiazePOXIDE HCL 25 MG CAPSULE PO ONE (14:15)
[2016-09-27] MEDS: chlordiazePOXIDE HCL 25 MG CAPSULE PO SCH ×2 (17:03→22:36)
[2016-09-27] MEDS: amLODIPine BESYLATE 10 MG TABLET (FP) PO SCH (17:53)
[2016-09-27 18:08] LABS: URINE APPEARANCE CLEAR; URINE BILIRUBIN NEGATIVE (NEGATIVE); URINE COLOR YELLOW; URINE GLUCOSE (UA) NEGATIVE (NEGATIVE); URINE KETONE TRACE (NEGATIVE); URINE LEUK ESTERASE NEGATIVE (NEGATIVE); URINE NITRITE NEGATIVE (NEGATIVE); URINE PROTEIN NEGATIVE (NEGATIVE); URINE UROBILINOGEN 2.0 E.U/dl E.U./dl (0.2-1.0)
[2016-09-27 18:09] LABS: URINE BLOOD 1+ (NEGATIVE)
[2016-09-27 18:10] LABS: URINE MUCUS RARE; URINE RBC 6 /hpf (0-3); URINE WBC 2 /hpf (3-5)
[2016-09-27] MEDS: NICOTINE POLACRILEX 2 MG GUM BUC PRN (19:15)
[2016-09-27] MEDS ORDERED: METOPROLOL TARTRATE 50 MG TABLET (FP) PO ONE (22:09)
[2016-09-27] MEDS: THIAMINE HCL 100 MG TABLET (FP) PO SCH (22:36)
[2016-09-27] MEDS: ACLIDINIUM BROMIDE 400 MCG/INH AERO.POWD IH SCH (22:36)
[2016-09-27] MEDS: ATORVASTATIN CA 20 MG TABLET (FP) PO SCH (22:36)
[2016-09-28] MEDS: chlordiazePOXIDE HCL 25 MG CAPSULE PO SCH ×4 (07:03→23:54)
[2016-09-28] MEDS: NICOTINE POLACRILEX 2 MG GUM BUC PRN ×3 (07:41→18:21)
[2016-09-28] MEDS ORDERED: EMTRICITABINE 200MG/TENOFOVIR 300MG PO SCH (10:00)
[2016-09-28] MEDS ORDERED: amLODIPine BESYLATE 10 MG TABLET (FP) PO SCH (10:00)
--- NOTE | 2016-09-28 10:04 | EKG ---
Test Reason : Blood Pressure : / mmHG Vent. Rate : 070 BPM Atrial Rate : 070 BPM P-R Int : 214 ms QRS Dur : 098 ms QT Int : 418 ms P-R-T Axes : 073 053 078 degrees QTc Int : 451 ms SINUS RHYTHM WITH 1ST DEGREE A-V BLOCK LEFT ATRIAL ENLARGEMENT LEFT VENTRICULAR HYPERTROPHY INCOMPLETE RBBB ABNORMAL ECG Confirmed by BUSHRA AL MD ([id number]) on 09/28/2016 10:04:06 AM Referred By: Confirmed By:BUSHRA AL MD
[2016-09-28] MEDS: PANTOPRAZOLE 40 MG TABLET (FP) PO SCH (10:08)
[2016-09-28] MEDS: amLODIPine BESYLATE 10 MG TABLET (FP) PO SCH (10:08)
[2016-09-28] MEDS: ASPIRIN COATED 81 MG TABLET.EC PO SCH (10:08)
[2016-09-28] MEDS: PRENATAL VITAMINS W/ FOLIC ACID TABLET (FP) PO SCH (10:08)
[2016-09-28] MEDS: METOPROLOL SUCCINATE 50 MG TAB.SR.24H (FP) PO SCH (10:08)
[2016-09-28] MEDS: ACLIDINIUM BROMIDE 400 MCG/INH AERO.POWD IH SCH ×2 (10:09→23:48)
[2016-09-28 10:13] LABS: MEAN CELL VOLUME 85.1 fl (80-96); MEAN PLT VOLUME 9.1 fl (7.5-11.1); PLATELET COUNT 239 K/MM3 (134-434); RDW 15.3 % (11.6-15.6); WHITE BLOOD COUNT 4.1 K/mm3 (4.0-10.0)
[2016-09-28 11:00] LABS: ALBUMIN 3.7 g/dl (3.4-5.0); ALK PHOS 109 U/L (45-117); ANION GAP 8 (8-16); BILIRUBIN,TOTAL 0.6 mg/dL (0.2-1.0); CALCIUM 9.2 mg/dL (8.5-10.1); CO2 29 mmol/L (21-32); GLUCOSE,RANDOM 78 mg/dL (74-106); SGOT/AST 34 U/L (15-37); SGPT/ALT 37 U/L (12-78); TOT PROT 7.8 g/dl (6.4-8.2)
--- NOTE | 2016-09-28 11:05 | PN ---
[facility] CIWA - CIWA Score Nausea/Vomitin-Mild Nausea/No Vomiting Muscle Tremors: 3 Anxiety: 4-Mod. Anxious/Guarded Agitation: 3 Paroxysmal Sweats: 3 Orientation: 0-Oriented Tacttile Disturbances: 0-None Auditory Disturbances: 0-None Visual Disturbances: 0-None Headache: 0-None Present CIWA-Ar Total Score: 14 S Progress Note (SOAP) Subjective: Anxiety,tremors,sweating,interrupted sleep,restless Objective: 09/28/16 11:04 Vital Signs - 8 hr 09/28/16 09/28/16 09/28/16 03:30 06:11 10:00 Temperature 97.7 F 97.7 F Pulse Rate 72 75 Respiratory 18 18 20 Rate Blood Pressure 158/86 147/92 Laboratory Last Values WBC 4.1 K/mm3 (4.0-10.0) 09/28/16 06:10 RBC 4.90 M/mm3 (3.60-5.2) 09/28/16 06:10 Hgb 13.7 GM/dL (10.7-15.3) D 09/28/16 06:10 Hct 41.7 % (32.4-45.2) 09/28/16 06:10 MCV 85.1 fl (80-96) 09/28/16 06:10 MCHC 33.0 g/dl (32.0-36.0) 09/28/16 06:10 RDW 15.3 % (11.6-15.6) 09/28/16 06:10 Plt Count 239 K/MM3 (134-434) 09/28/16 06:10 MPV 9.1 fl (7.5-11.1) D 09/28/16 06:10 Sodium 140 mmol/L (136-145) 09/28/16 06:10 Potassium 3.6 mmol/L (3.5-5.1) 09/28/16 06:10 Chloride 103 mmol/L (98-107) 09/28/16 06:10 Carbon Dioxide 29 mmol/L (21-32) 09/28/16 06:10 Anion Gap 8 (8-16) 09/28/16 06:10 BUN 15 mg/dL (7-18) 09/28/16 06:10 Creatinine 1.0 mg/dL (0.55-1.02) 09/28/16 06:10 Creat Clearance w eGFR 58.45 (>60) 09/28/16 06:10 Random Glucose 78 mg/dL (74-106) 09/28/16 06:10 Calcium 9.2 mg/dL (8.5-10.1) 09/28/16 06:10 Total Bilirubin 0.6 mg/dL (0.2-1.0) D 09/28/16 06:10 AST 34 U/L (15-37) D 09/28/16 06:10 ALT 37 U/L (12-78) D 09/28/16 06:10 Alkaline Phosphatase 109 U/L (45-117) 09/28/16 06:10 Total Protein 7.8 g/dl (6.4-8.2) 09/28/16 06:10 Albumin 3.7 g/dl (3.4-5.0) 09/28/16 06:10 Urine Color Yellow 09/27/16 15:59 Urine Appearance Clear 09/27/16 15:59 Urine pH 5.0 (5.0-8.0) D 09/27/16 15:59 Ur Specific [place] 1.020 (1.005-1.025) 09/27/16 15:59 Urine Protein Negative (NEGATIVE) 09/27/16 15:59 Urine Glucose (UA) Negative (NEGATIVE) 09/27/16 15:59 Urine Ketones Trace (NEGATIVE) H 09/27/16 15:59 Urine Blood 1+ (NEGATIVE) H 09/27/16 15:59 Urine Nitrite Negative (NEGATIVE) 09/27/16 15:59 Urine Bilirubin Negative (NEGATIVE) 09/27/16 15:59 Urine Urobilinogen 2.0 e.u/dl E.U./dl (0.2-1.0) H 09/27/16 15:59 Ur Leukocyte Esterase Negative (NEGATIVE) 09/27/16 15:59 Urine RBC 6 /hpf (0-3) 09/27/16 15:59 Urine WBC 2 /hpf (3-5) 09/27/16 15:59 Ur Epithelial Cells Few /hpf (FEW) 09/27/16 15:59 Urine Mucus Rare 09/27/16 15:59 labs noted Assessment: 09/28/16 11:04 Withdrawal sx. Plan: Continue detox
--- NOTE | 2016-09-28 14:28 | CONSULT ---
[facility] Psychiatric Consult - Data Date of interview: 09/28/16 Admission source: [facility] Identifying data: Another admission to [facility] for this 51 y/o AA female seeking detox treatment on for alcohol and cocaine dependence.Patient is ,a mother of two,domiciled,unemployed and supported on [employer] funds. Substance Abuse History: - Smoking Cessation. Smoking history: Current every day smoker. Have you smoked in the past 12 months: Yes. Aproximately how many cigarettes per day: 20. Hx Chewing Tobacco Use: No. Initiated information on smoking cessation: Yes. 'Breaking Loose' booklet given: 09/27/16. - Substance & Tx. History. Hx Alcohol Use: Yes. Hx Substance Use: Yes. Substance Use Type : Alcohol, Cocaine. - Substances Abused. Alcohol. Route: Oral. Frequency : Daily. Amount used: vodka(1 pint)/ 3 cobra-24 oz cans. Age of first use: 16. Date of Last Use: 09/27/16. Cocaine. Route: Smoking. Frequency: Daily. Age of first use: 18. Date of Last Use: 09/27/16. Confirmed by patient. Medical History: History of treatment for syphilis,chlamydia/gonorrhea ( adolescence),HIV infection since 2013 (on ART medications),hypertension,COPD, GERD,bronchial asthma and hypercholesterolemia.Noted past history of ectopic (age 30). Psychiatric History: No reported history of psychiatric hospitalizations.Diagnosed with MDD.Patient sees a psychiatrist at the [facility] clinic in the [place] (formerly [facility]).Currently prescribed seroquel 100 mg/hs + zoloft 100 mg/day (self-report).Last taken on .Patient denies history of suicide attempts. Physical/Sexual Abuse/Trauma History: Not discussed.Patient declined. Additional Comment: Urine Drug Screen Results: CHRISTOPHE-Cocaine.Noted. Mental Status Exam - Mental Status Exam Alert and Oriented to: Time, Place, Person Cognitive Function: Good Patient Appearance: Well Groomed Mood: Withdrawn, Hopeful Affect: Mood Congruent Patient Behavior: Fatigued, Cooperative Speech Pattern: Clear Voice Loudness: Normal Thought Process: Goal Oriented Thought Disorder: Not Present Hallucinations: Denies Suicidal Ideation: Denies Homicidal Ideation: Denies Insight/Judgement: Poor Sleep: Poorly, Difficulty falling asleep Appetite: Good Muscle strength/Tone: Normal Gait/Station: Normal Psychiatric Findings - Problem List ([place] 1, 2,3) (1) Alcohol dependence with withdrawal, uncomplicated Current Visit: Yes Status: Acute (2) Cocaine dependence Current Visit: Yes Status: Chronic Qualifiers: Substance use status: uncomplicated Qualified Code(s): F14.20 - Cocaine dependence, uncomplicated (3) Nicotine dependence Current Visit: Yes Status: Acute Qualifiers: Nicotine product type: cigarettes Substance use status: uncomplicated Qualified Code(s): F17.210 - Nicotine dependence, cigarettes, uncomplicated (4) Drug-induced mood disorder Current Visit: Yes Status: Acute (5) MDD (major depressive disorder) Current Visit: Yes Status: Chronic Comment: Historical diagnosis. (6) Asthma Current Visit: Yes Status: Chronic Qualifiers: Asthma severity: moderate persistent Asthma complication type: with acute exacerbation Qualified Code(s): J45.41 - Moderate persistent asthma with (acute) exacerbation (7) COPD (chronic obstructive pulmonary disease) Current Visit: Yes Status: Chronic Qualifiers: COPD type: COPD with acute exacerbation Qualified Code(s): J44.1 - Chronic obstructive pulmonary disease with (acute) exacerbation (8) Essential hypertension Current Visit: Yes Status: Chronic (9) GERD (gastroesophageal reflux disease) Current Visit: Yes Status: Chronic Qualifiers: Esophagitis presence: without esophagitis Qualified Code(s): K21.9 - Gastro-esophageal reflux disease without esophagitis (10) HIV infection Current Visit: Yes Status: Chronic (11) Hypercholesterolemia Current Visit: Yes Status: Acute (12) Insomnia Current Visit: Yes Status: Acute - Initial Treatment Plan Initial Treatment Plan: Previous records are revisited.Psychoeducation done in this session.Medications : seroquel 100 mg po hs + zoloft 100 mg po daily.Side effects/benefits discussed with patient.She agrees with this plan of care.Observation.
[2016-09-28] MEDS ORDERED: ALBUTEROL SO4 2.5/IPRATROPIUM 0.5 INH SOL 3 ML VIAL.NEB. NEB PRN (14:35)
[2016-09-28] MEDS ORDERED: ALBUTEROL SO4 2.5/IPRATROPIUM 0.5 INH SOL 3 ML VIAL.NEB. NEB ONE (14:45)
[2016-09-28] MEDS: ALBUTEROL SO4 2.5/IPRATROPIUM 0.5 INH SOL 3 ML VIAL.NEB. NEB SCH ×2 (18:06→23:47)
[2016-09-28] MEDS: QUEtiapine FUMARATE 100 MG TABLET (FP) PO SCH (21:11)
[2016-09-28] MEDS: THIAMINE HCL 100 MG TABLET (FP) PO SCH (23:48)
[2016-09-28] MEDS: ATORVASTATIN CA 20 MG TABLET (FP) PO SCH (23:54)
[2016-09-29] MEDS: chlordiazePOXIDE HCL 25 MG CAPSULE PO SCH ×2 (06:09→10:11)
[2016-09-29] MEDS: SERTRALINE HCL 50 MG TABLET (FP) PO SCH (10:10)
[2016-09-29] MEDS: METOPROLOL SUCCINATE 50 MG TAB.SR.24H (FP) PO SCH (10:10)
[2016-09-29] MEDS: amLODIPine BESYLATE 10 MG TABLET (FP) PO SCH (10:10)
[2016-09-29] MEDS: ASPIRIN COATED 81 MG TABLET.EC PO SCH (10:11)
[2016-09-29] MEDS: PRENATAL VITAMINS W/ FOLIC ACID TABLET (FP) PO SCH (10:11)
[2016-09-29] MEDS: PANTOPRAZOLE 40 MG TABLET (FP) PO SCH (10:11)
[2016-09-29] MEDS: ALBUTEROL SO4 2.5/IPRATROPIUM 0.5 INH SOL 3 ML VIAL.NEB. NEB SCH ×4 (10:13→22:05)
[2016-09-29] MEDS: ACLIDINIUM BROMIDE 400 MCG/INH AERO.POWD IH SCH ×2 (10:30→22:07)
--- NOTE | 2016-09-29 11:08 | PN ---
[facility] CIWA - CIWA Score Nausea/Vomitin-No Nausea/No Vomiting Muscle Tremors: 4-Moderate,w/Arms Extend Anxiety: 4-Mod. Anxious/Guarded Agitation: 4-Moderately Restless Paroxysmal Sweats: 3 Orientation: 0-Oriented Tacttile Disturbances: 0-None Auditory Disturbances: 0-None Visual Disturbances: 0-None Headache: 0-None Present CIWA-Ar Total Score: 15 BHS Progress Note (SOAP) Subjective: Anxiety,tremors,sweating,interrupted sleep,restless Objective: 09/29/16 11:06 Vital Signs - 8 hr 09/29/16 09/29/16 09/29/16 03:30 06:32 07:11 Temperature 98.2 F Pulse Rate 75 72 Respiratory 17 18 18 Rate Blood Pressure 162/102 149/94 09/29/16 10:00 Temperature 97.7 F Pulse Rate 89 Respiratory 20 Rate Blood Pressure 163/114 Laboratory Tests 09/27/16 09/28/16 09/28/16 15:59 06:10 06:10 WBC 4.1 RBC 4.90 Hgb 13.7 D Hct 41.7 MCV 85.1 MCHC 33.0 RDW 15.3 Plt Count 239 MPV 9.1 D Sodium 140 Potassium 3.6 Chloride 103 Carbon Dioxide 29 Anion Gap 8 BUN 15 Creatinine 1.0 Creat Clearance w eGFR 58.45 Random Glucose 78 Calcium 9.2 Total Bilirubin 0.6 D AST 34 D ALT 37 D Alkaline Phosphatase 109 Total Protein 7.8 Albumin 3.7 Urine Color Yellow Urine Appearance Clear Urine pH 5.0 D Ur Specific [place] 1.020 Urine Protein Negative Urine Glucose (UA) Negative Urine Ketones Trace H Urine Blood 1+ H Urine Nitrite Negative Urine Bilirubin Negative Urine Urobilinogen 2.0 e.u/dl H Ur Leukocyte Esterase Negative Urine RBC 6 Urine WBC 2 Ur Epithelial Cells Few Urine Mucus Rare RPR Titer 09/28/16 06:10 WBC RBC Hgb Hct MCV MCHC RDW Plt Count MPV Sodium Potassium Chloride Carbon Dioxide Anion Gap BUN Creatinine Creat Clearance w eGFR Random Glucose Calcium Total Bilirubin AST ALT Alkaline Phosphatase Total Protein Albumin Urine Color Urine Appearance Urine pH Ur Specific [place] Urine Protein Urine Glucose (UA) Urine Ketones Urine Blood Urine Nitrite Urine Bilirubin Urine Urobilinogen Ur Leukocyte Esterase Urine RBC Urine WBC Ur Epithelial Cells Urine Mucus RPR Titer Nonreactive labs noted Assessment: 09/29/16 11:07 Withdrawal sx. Plan: Continue detox
[2016-09-29] MEDS: BUDESONIDE/FORMETEROL FUMARATE 80/4.5 mcg INHALER IH SCH ×2 (12:00→22:06)
[2016-09-29] MEDS: TRIAMTERENE AND HCTZ - 37.5 MG/25 MG CAPSULE PO SCH (12:00)
[2016-09-29] MEDS: chlordiazePOXIDE 5 MG CAPSULE PO SCH ×2 (17:42→22:06)
[2016-09-29] MEDS: NICOTINE POLACRILEX 2 MG GUM BUC PRN (17:44)
[2016-09-29] MEDS ORDERED: MONTELUKAST NA 5 MG TAB.CHEW PO SCH (22:00)
[2016-09-29] MEDS: THIAMINE HCL 100 MG TABLET (FP) PO SCH (22:06)
[2016-09-29] MEDS: QUEtiapine FUMARATE 100 MG TABLET (FP) PO SCH (22:06)
[2016-09-29] MEDS: ATORVASTATIN CA 20 MG TABLET (FP) PO SCH (22:06)
[2016-09-30] MEDS: chlordiazePOXIDE 5 MG CAPSULE PO SCH ×2 (06:23→10:36)
--- NOTE | 2016-09-30 10:00 | PN ---
S Progress Note (SOAP) Subjective: ALERT,IRRITABLE,INTERRUPTED SLEEP Objective: 09/30/16 10:00 Vital Signs Temperature 97.7 F 09/30/16 06:00 Pulse Rate 81 09/30/16 07:30 Respiratory Rate 18 09/30/16 07:30 Blood Pressure 147/99 09/30/16 07:30 O2 Sat by Pulse Oximetry (%) Assessment: 09/30/16 10:00 WITHDRAWAL SYMPTOM Plan: CONTINUE DETOX,DISCHARGE IN AM
[2016-09-30] MEDS: ASPIRIN COATED 81 MG TABLET.EC PO SCH (10:37)
[2016-09-30] MEDS: METOPROLOL SUCCINATE 50 MG TAB.SR.24H (FP) PO SCH (10:37)
[2016-09-30] MEDS: PRENATAL VITAMINS W/ FOLIC ACID TABLET (FP) PO SCH (10:37)
[2016-09-30] MEDS: PANTOPRAZOLE 40 MG TABLET (FP) PO SCH (10:37)
[2016-09-30] MEDS: SERTRALINE HCL 50 MG TABLET (FP) PO SCH (10:37)
[2016-09-30] MEDS: BUDESONIDE/FORMETEROL FUMARATE 80/4.5 mcg INHALER IH SCH ×2 (10:38→22:55)
[2016-09-30] MEDS: ACLIDINIUM BROMIDE 400 MCG/INH AERO.POWD IH SCH ×2 (10:38→22:55)
[2016-09-30] MEDS: TRIAMTERENE AND HCTZ - 37.5 MG/25 MG CAPSULE PO SCH (10:42)
[2016-09-30] MEDS: NICOTINE POLACRILEX 2 MG GUM BUC PRN ×3 (10:43→20:45)
[2016-09-30] MEDS: amLODIPine BESYLATE 10 MG TABLET (FP) PO SCH (10:43)
[2016-09-30] MEDS: chlordiazePOXIDE HCL 10 MG CAPSULE PO SCH ×2 (17:26→22:02)
[2016-09-30] MEDS: ALBUTEROL SO4 2.5/IPRATROPIUM 0.5 INH SOL 3 ML VIAL.NEB. NEB SCH ×2 (18:55→23:07)
[2016-09-30] MEDS ORDERED: MONTELUKAST NA 10 MG TABLET PO SCH (22:00)
[2016-09-30] MEDS: THIAMINE HCL 100 MG TABLET (FP) PO SCH (22:01)
[2016-09-30] MEDS: ATORVASTATIN CA 20 MG TABLET (FP) PO SCH (22:02)
[2016-09-30] MEDS: QUEtiapine FUMARATE 100 MG TABLET (FP) PO SCH (22:02)
[2016-10-01 06:21] VITALS: BP 163/100; PULSE 74; TEMP 97.9
--- NOTE | 2016-10-01 06:31 | PN ---
S Progress Note (SOAP) Subjective: ALERT,NO COMPLAINT Objective: 10/01/16 06:30 Vital Signs Temperature 97.9 F 10/01/16 06:21 Pulse Rate 74 10/01/16 06:21 Respiratory Rate 18 10/01/16 06:21 Blood Pressure 163/100 10/01/16 06:21 O2 Sat by Pulse Oximetry (%) Assessment: 10/01/16 06:30 DETOX COMPLETED,NO WITHDRAWAL SYMPTOM Plan: DISCHARGE TODAY,FOLLOW UP WITH AFTER CARE PROGRAM ARRANGEMENT
[2016-10-01] MEDS: chlordiazePOXIDE HCL 10 MG CAPSULE PO SCH (06:33)
--- NOTE | 2016-10-01 06:34 | DS ---
[facility] Detox Discharge Summary Admission Date: 09/27/16 Discharge Date: 10/01/16 - History Present History: Alcohol Dependence, Cocaine Dependence Additional Comments: FOLLOW UP WITH AFTER CARE PROGRAM ARRANGEMENT AND PMD FOR MEDICAL PROBLEM PATIENT HAS ALL MEDICATIONS AT HOME Pertinent Past History: ASTHMA COPD HYPERTENSION GERD HIV HYPECHOLESTEROLEMIA WEIGHT LOSS - Physical Exam Results Vital Signs: Vital Signs Temperature 97.9 F 10/01/16 06:21 Pulse Rate 74 10/01/16 06:21 Respiratory Rate 18 10/01/16 06:21 Blood Pressure 163/100 10/01/16 06:21 O2 Sat by Pulse Oximetry (%) Pertinent Admission Physical Exam Findings: WITHDRAWAL SYMPTOM - Treatment Hospital Course: Detox Protocol Followed, Detoxed Safely, Responded well, Discharged Condition Good Patient has Accepted a Rehab Referral to: [facility]CL[facility]ED - Medication Discharge Medications: Ambulatory Orders Albuterol Sulfate Inhaler - [Ventolin HFA Inhaler -] 2 inh PO Q4H PRN #1 inh Tiotropium [place] [Spiriva] 18 mcg IH DAILY 07/01/15 Aclidinium [place] [Tudorza -] 1 puff PO BID #1 inhaler 07/05/15 Amlodipine Besylate [Norvasc -] 10 mg PO DAILY #30 tablet 07/05/15 Aspirin Coated [Ecotrin -] 81 mg PO DAILY #30 tablet.ec 07/05/15 Atorvastatin Ca [Lipitor] 20 mg PO HS #30 tablet 07/05/15 Pantoprazole Sodium [Protonix -] 40 mg PO DAILY #30 tablet.ec 07/05/15 Elviteg/Myriam/Emtric/Tenofo Dis [Stribild Tablet] 1 tab PO AM 02/07/16 Quetiapine Fumarate [Seroquel] 100 mg PO HS #30 tablet 06/03/16 Sertraline HCl [Zoloft] 100 mg PO DAILY #30 tablet 06/03/16 Metoprolol Tartrate [Lopressor] 50 mg PO DAILY 09/27/16 Quetiapine Fumarate [Seroquel] 100 mg PO HS #30 tablet 09/28/16 Sertraline HCl [Zoloft] 100 mg PO DAILY #30 tablet 09/28/16 - Diagnosis (1) Alcohol dependence with withdrawal, uncomplicated Current Visit: Yes Status: Acute (2) Asthma Current Visit: Yes Status: Chronic Qualifiers: Asthma severity: moderate persistent Asthma complication type: with acute exacerbation Qualified Code(s): J45.41 - Moderate persistent asthma with (acute) exacerbation (3) COPD (chronic obstructive pulmonary disease) Current Visit: Yes Status: Chronic Qualifiers: COPD type: COPD with acute exacerbation Qualified Code(s): J44.1 - Chronic obstructive pulmonary disease with (acute) exacerbation (4) Cocaine dependence Current Visit: Yes Status: Chronic Qualifiers: Substance use status: uncomplicated Qualified Code(s): F14.20 - Cocaine dependence, uncomplicated (5) Essential hypertension Current Visit: Yes Status: Chronic (6) GERD (gastroesophageal reflux disease) Current Visit: Yes Status: Chronic Qualifiers: Esophagitis presence: without esophagitis Qualified Code(s): K21.9 - Gastro-esophageal reflux disease without esophagitis (7) HIV infection Current Visit: Yes Status: Chronic (8) Hypercholesterolemia Current Visit: Yes Status: Acute (9) Weight loss Current Visit: No Status: Acute - AMA Did Patient Leave Against Medical Advice: No
== END 2016-10-01 07:15 | disposition home or self-care (01) | DRG 774 ==
LOC: YASAS 09:52 → Y6N 13:16
PROVIDERS: ADMIT Internal Medicine; ATTEND Internal Medicine
PROC: HZ2ZZZZ Detoxification Services for Substance Abuse Treatment (ICD-10-PCS; principal; 2016-09-27)
DX: F10.230 Alcohol dependence with withdrawal, uncomplicated (principal); F14.20 Cocaine dependence, uncomplicated; F17.210 Nicotine dependence, cigarettes, uncomplicated; F19.24 Other psychoactive substance dependence with psychoactive substance-induced mood disorder; F33.9 Major depressive disorder, recurrent, unspecified; J45.41 Moderate persistent asthma with (acute) exacerbation; J44.1 Chronic obstructive pulmonary disease with (acute) exacerbation; I10 Essential (primary) hypertension; K21.9 Gastro-esophageal reflux disease without esophagitis; Z21 Asymptomatic human immunodeficiency virus [HIV] infection status; E78.00 Pure hypercholesterolemia, unspecified; G47.00 Insomnia, unspecified; Z87.42 Personal history of other diseases of the female genital tract; Z87.898 Personal history of other specified conditions; Z91.5 Personal history of self-harm
CPT/HCPCS: 36415; 80053; 81003; 81015; 85027; 86593; 93005; 93010; 94640

== ENCOUNTER 2017-01-30 09:12 | Inpatient (IN) | payer OTHER ==
[~2017-01-30 09:12] MED LIST: ATOVAQUONE 750 MG/5 ML (UNIT-DOSE PACKAGING) PO SCH
[2017-01-30 10:12] VITALS: BMI 22.8
--- NOTE | 2017-01-30 11:33 | HP ---
CIWA Score - CIWA Score Nausea/Vomitin-No Nausea/No Vomiting Muscle Tremors: 2 Anxiety: 2 Agitation: 4-Moderately Restless Paroxysmal Sweats: 3 Orientation: 1-Uncertain about Date Tacttile Disturbances: 0-None Auditory Disturbances: 0-None Visual Disturbances: 0-None Headache: 2-Mild CIWA-Ar Total Score: 14 Admission ROS BHS - HPI Chief Complaint: I stopped drinking, I need to be here Allergies/Adverse Reactions: Allergies Allergy/AdvReac Type Severity Reaction Status Date / Time lisinopril Allergy Intermediate Swelling Verified 09/27/16 11:04 turkey Allergy Verified 01/30/17 10:37 erythromycin base AdvReac Rash Verified 09/27/16 11:04 sulfamethoxazole AdvReac Rash Verified 09/27/16 11:04 [From Bactrim] trimethoprim [From Bactrim] AdvReac Rash Verified 09/27/16 11:04 History of Present Illness: Delisa has been using drugs for 30+ years Had periods of abstinence for 4 years Relapsed due to major stressors Exam Limitations: No Limitations - Ebola screening Have you traveled outside of the country in the last 21 days: No Have you had contact with anyone from an Ebola affected area: No Have you been sick,other than usual withdrawal symptoms: No - Review of Systems Constitutional: Loss of Appetite, Malaise EENT: reports: No Symptoms Reported Respiratory: reports: No Symptoms reported Cardiac: reports: No Symptoms Reported GI: reports: No Symptoms Reported : reports: No Symptoms Reported Musculoskeletal: reports: No Symptoms Reported Integumentary: reports: Rash Neuro: reports: No Symptoms reported Endocrine: reports: No Symptoms Reported Hematology: reports: No Symptoms Reported Psychiatric: reports: Anxious Patient History - Patient Medical History Hx Anemia: No Hx Asthma: Yes Hx Chronic Obstructive Pulmonary Disease (COPD): No Hx Cancer: No Hx Cardiac Disorders: No Hx Congestive Heart Failure: No Hx Hypertension: Yes (ON MEDS) Hx Hypercholesterolemia: Yes (on med) Hx Pacemaker: No HX Cerebrovascular Accident: No Hx Seizures: No Hx Dementia: No Hx Diabetes: No Hx Gastrointestinal Disorders: No Hx Liver Disease: No Hx Genitourinary Disorders: No Hx Sexually Transmitted Disorders: Yes (Pt was tx for chlamydia gonnorhea and syphillis in past.) Hx Renal Disease (ESRD): No Hx Thyroid Disease: No Hx Human Immunodeficiency Virus (HIV): Yes (on Stribild since 2013) Hx Hepatitis C: No Hx Depression: Yes Hx Suicide Attempt: No Hx Bipolar Disorder: No Hx Schizophrenia: No - Patient Surgical History Past Surgical History: Yes Hx Neurologic Surgery: No Hx Cataract Extraction: No Hx Cardiac Surgery: No Hx Lung Surgery: No Hx Breast Surgery: No Hx Breast Biopsy: No Hx Abdominal Surgery: No Hx Appendectomy: No Hx Cholecystectomy: No Hx Genitourinary Surgery: No Hx Section: No Hx Orthopedic Surgery: No Other Surgical History: ectopic since age 30 right ectopic Anesthesia Reaction: No - PPD History Previous Implant?: Yes Documented Results: Negative w/proof Implanted On Prior [facility] Admission?: Yes Date: 09/29/16 Results: 0 MM - Reproductive History Last Menstrual Period: 06/13/11 Patient : No - Smoking Cessation Smoking history: Current every day smoker Have you smoked in the past 12 months: Yes Aproximately how many cigarettes per day: 20 Hx Chewing Tobacco Use: No Initiated information on smoking cessation: Yes 'Breaking Loose' booklet given: 01/30/17 - Substances Abused Alcohol Route: Oral Frequency: Daily Amount used: 1 PINT VODKA/ 4 CANS MALT LIQUOR Age of first use: 14 Date of Last Use: 01/29/17 Cocaine Route: Smoking Frequency: Daily Amount used: $100 Age of first use: 18 Date of Last Use: 01/29/17 Family Disease History - Family Disease History Family Disease History: Diabetes: Father (alcohol,), Mother (alcohol, ), Heart Disease: Father, Mother, CA: Father, Mother, Respiratory: Father, Daughter Admission Physical Exam S - Vital Signs Vital Signs: Vital Signs - 24 hr 01/30/17 10:04 Temperature 96.2 F L Pulse Rate 98 H Respiratory 20 Rate Blood Pressure 169/109 - Physical General Appearance: Yes: Disheveled, Other (tr periorbital swelling) HEENTM: Yes: EOMI, Rhinorrhea, Other (conjunctival injection) Respiratory: Yes: Lungs Clear, Normal Breath Sounds Neck: Yes: Within Normal Limits, No masses,lesions,Nodules Cardiology: Yes: Regular Rhythm, Regular Rate, S1, S2 Abdominal: Yes: Normal Bowel Sounds, Non Tender Back: Yes: Within Normal Limits Musculoskeletal: Yes: full range of Motion, Gait Steady Extremities: Yes: Normal Capillary Refill, Normal Inspection 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, Fully Oriented Integumentary: Yes: Other (sacral vesicular rash) - Diagnostic (1) Alcohol dependence with withdrawal, uncomplicated Current Visit: Yes Status: Acute (2) Depressive disorder Current Visit: Yes Status: Chronic (3) Drug-induced mood disorder Current Visit: No Status: Acute (4) Nicotine dependence Current Visit: No Status: Acute Qualifiers: Nicotine product type: cigarettes Substance use status: uncomplicated Qualified Code(s): F17.210 - Nicotine dependence, cigarettes, uncomplicated ; F17.210 - Nicotine dependence, cigarettes, uncomplicated (5) Weight loss Current Visit: No Status: Acute (6) Asthma Current Visit: No Status: Chronic Qualifiers: Asthma severity: moderate persistent Asthma complication type: with acute exacerbation Qualified Code(s): J45.41 - Moderate persistent asthma with (acute) exacerbation; J45.41 - Moderate persistent asthma with (acute) exacerbation; J45.41 - Moderate persistent asthma with (acute) exacerbation (7) COPD (chronic obstructive pulmonary disease) Current Visit: No Status: Chronic Qualifiers: COPD type: COPD with acute exacerbation Qualified Code(s): J44.1 - Chronic obstructive pulmonary disease with (acute) exacerbation; J44.1 - Chronic obstructive pulmonary disease with (acute) exacerbation; J44.1 - Chronic obstructive pulmonary disease with (acute) exacerbation; J44.1 - Chronic obstructive pulmonary disease with (acute) exacerbation (8) GERD (gastroesophageal reflux disease) Current Visit: No Status: Chronic Qualifiers: Esophagitis presence: without esophagitis Qualified Code(s): K21.9 - Gastro-esophageal reflux disease without esophagitis; K21.9 - Gastro-esophageal reflux disease without esophagitis; K21.9 - Gastro-esophageal reflux disease without esophagitis (9) HIV infection Current Visit: No Status: Chronic (10) Palpitations Current Visit: No Status: Chronic (11) Shingles Current Visit: Yes Status: Acute (12) Pneumonia Current Visit: Yes Status: Acute Cleared for Admission BHS - Detox or Rehab S Level of Care: Medically Supervised Detox Regimen/Protocol: Librium S Breath Alcohol Content Breath Alcohol Content: 0 Urine Pregancy Test - Result Urine Test Results: Negative- NO Line Present Urine Drug Screen - Results Urine Drug Screen Results: CHRISTOPHE-Cocaine, TCA-Tricyclic Antidepress
[2017-01-30] MEDS ORDERED: MAG HYDROX/AL HYDROX/SIMETH 30 ML UNIT-DOSE CUP PO PRN (11:43)
[2017-01-30] MEDS ORDERED: IBUPROFEN 400 MG TABLET (FP) PO PRN (11:43)
[2017-01-30] MEDS ORDERED: guaiFENesin/D-METHORPHAN HB 10 ML UNIT-DOSE CUPS PO PRN (11:43)
[2017-01-30] MEDS ORDERED: MENTHOL/PHENOL 1 EACH UD MM PRN (11:43)
[2017-01-30] MEDS ORDERED: MAGNESIUM HYDROX 2400MG/30ML ORAL SUSPENSION 30 ML CUP PO PRN (11:43)
[2017-01-30] MEDS ORDERED: hydrOXYzine PAMOATE 50 MG CAPSULE (FP) PO PRN (11:43)
[2017-01-30] MEDS ORDERED: ACETAMINOPHEN 325 MG TABLET (FP) PO PRN (11:43)
[2017-01-30] MEDS ORDERED: MAGNESIUM CITRATE 300 ML BOTTLE PO PRN (11:43)
[2017-01-30] MEDS ORDERED: chlordiazePOXIDE HCL 25 MG CAPSULE PO PRN (11:43)
[2017-01-30] MEDS ORDERED: diphenhydrAMINE HCL 50 MG CAPSULE PO PRN (11:43)
[2017-01-30] MEDS ORDERED: P-EPHED 60MG/TRIPROLIDI 2.5MG TABLET PO PRN (11:43)
[2017-01-30] MEDS ORDERED: LOPERAMIDE HCL 2 MG CAPSULE PO PRN (11:43)
[2017-01-30] MEDS ORDERED: ALBUTEROL SO4 18 GM HFA INHALER IH PRN (11:45)
[2017-01-30 14:34] LABS: MCH 27.4 pg (25.7-33.7); MCHC 32.5 g/dl (32.0-36.0); MEAN CELL VOLUME 84.3 fl (80-96); MEAN PLT VOLUME 7.7 fl (7.5-11.1); PLATELET COUNT 303 K/MM3 (134-434); RDW 15.5 % (11.6-15.6); WHITE BLOOD COUNT 6.7 K/mm3 (4.0-10.0)
--- NOTE | 2017-01-30 14:35 | CONSULT ---
[facility] Psychiatric Consult - Data Date of interview: 01/30/17 Admission source: [facility] Identifying data: This is 51 years old female with no psychiatric hospitalization history, intoxicated with : Cocaine, Alcohol and Nicotine Substance Abuse History: Smoking Cessation. Smoking history: Current every day smoker. Have you smoked in the past 12 months: Yes. Aproximately how many cigarettes per day: 20. Hx Chewing Tobacco Use: No. Initiated information on smoking cessation: Yes. 'Breaking Loose' booklet given: 01/30/17. - Substances Abused. Alcohol. Route: Oral. Frequency: Daily. Amount used: 1 PINT VODKA/ 4 CANS MALT LIQUOR. Age of first use: 14. Date of Last Use: . Cocaine. Route: Smoking. Frequency: Daily. Amount used: $100. Age of first use: 18. Date of Last Use: 01/29/17 Medical History: Hyperchlesterolemia, Hypokalemia historyu, Weight loss history , Asthma, COPD, HTN, HIV+. Psychiatric History: Patient reports history of depression, reports no suicidal hiustory, reports taking prior to admission: Gabapentin 300mg po tisd. Zoloft 100mg poqd. Seroquel 200mg po qhs Physical/Sexual Abuse/Trauma History: Denies, unclear Additional Comment: Gabapentin 300mg po tisd. Zoloft 100mg poqd. Seroquel 200mg po qhs Mental Status Exam - Mental Status Exam Alert and Oriented to: Person Cognitive Function: Fair Patient Appearance: Unkempt Mood: Anxious Affect: Mood Congruent Patient Behavior: Cooperative Speech Pattern: Appropriate Voice Loudness: Mildly Soft/Quiet Thought Process: Circumstantial Thought Disorder: Being Controlled Hallucinations: Denies Suicidal Ideation: Denies Homicidal Ideation: Denies Insight/Judgement: Fair Sleep: Difficulty falling asleep Appetite: Fair Muscle strength/Tone: Normal Gait/Station: Normal Additional Comments: Gabapentin 300mg po tisd. Zoloft 100mg poqd. Seroquel 200mg po qhs Psychiatric Findings - Problem List ([place] 1, 2,3) (1) Alcohol dependence with withdrawal, uncomplicated Current Visit: Yes Status: Acute (2) Depressive disorder Current Visit: Yes Status: Chronic (3) Drug-induced mood disorder Current Visit: No Status: Acute (4) Nicotine dependence Current Visit: No Status: Acute Qualifiers: Nicotine product type: cigarettes Substance use status: uncomplicated Qualified Code(s): F17.210 - Nicotine dependence, cigarettes, uncomplicated ; F17.210 - Nicotine dependence, cigarettes, uncomplicated (5) Weight loss Current Visit: No Status: Acute (6) Cocaine dependence Current Visit: No Status: Chronic Qualifiers: Substance use status: uncomplicated Qualified Code(s): F14.20 - Cocaine dependence, uncomplicated; F14.20 - Cocaine dependence, uncomplicated; F14.20 - Cocaine dependence, uncomplicated (7) MDD (major depressive disorder) Current Visit: No Status: Chronic Comment: Historical diagnosis. - Initial Treatment Plan Initial Treatment Plan: Gabapentin 300mg po tisd. Zoloft 100mg poqd. Seroquel 200mg po qhs
[2017-01-30] MEDS ORDERED: valACYclovir HCL 500 MG TABLET (FP) PO ONE (14:48)
[2017-01-30 14:50] LABS: ALBUMIN 3.3 g/dl (3.4-5.0); ANION GAP 10 (8-16); CO2 26 mmol/L (21-32); GLUCOSE,RANDOM 115 mg/dL (74-106)
[2017-01-30 14:54] LABS: ALK PHOS 88 U/L (45-117); BILIRUBIN,TOTAL 0.5 mg/dL (0.2-1.0); SGOT/AST 16 U/L (15-37); SGPT/ALT 25 U/L (12-78); TOT PROT 7.1 g/dl (6.4-8.2)
[2017-01-30] MEDS: NICOTINE 21 MG/24 HOURS TOPICAL PATCH TD SCH (15:30)
[2017-01-30] MEDS: chlordiazePOXIDE HCL 25 MG CAPSULE PO SCH ×3 (15:33→22:11)
[2017-01-30] MEDS ORDERED: cloNIDine HCL 0.1 MG TABLET PO ONE ×2 (15:47→22:58)
[2017-01-30] MEDS ORDERED: valACYclovir HCL 1000 MG TABLET PO ONE (17:00)
[2017-01-30] MEDS ORDERED: DOXYCYCLINE HYCLATE 100 MG TABLET PO SCH (18:00)
[2017-01-30 18:13] LABS: URINE APPEARANCE SLCLOUDY; URINE BILIRUBIN NEGATIVE (NEGATIVE); URINE BLOOD NEGATIVE (NEGATIVE); URINE COLOR LTYELLOW; URINE GLUCOSE (UA) NEGATIVE (NEGATIVE); URINE KETONE NEGATIVE (NEGATIVE); URINE NITRITE NEGATIVE (NEGATIVE); URINE PROTEIN NEGATIVE (NEGATIVE); URINE UROBILINOGEN NEGATIVE mg/dL (0.2-1.0)
[2017-01-30] MEDS ORDERED: ALBUTEROL SO4 2.5/IPRATROPIUM 0.5 INH SOL 3 ML VIAL.NEB. NEB PRN (18:21)
[2017-01-30 21:05] LABS: URINE LEUK ESTERASE Negative (NEGATIVE)
[2017-01-30] MEDS: THIAMINE HCL 100 MG TABLET (FP) PO SCH (22:10)
[2017-01-30] MEDS: ATOVAQUONE 750 MG/5 ML (UNIT-DOSE PACKAGING) PO SCH (22:10)
[2017-01-30] MEDS: GABAPENTIN 300 MG CAPSULE (FP) PO SCH (22:11)
[2017-01-30] MEDS: MONTELUKAST NA 10 MG TABLET PO SCH (22:11)
[2017-01-30] MEDS: QUEtiapine FUMARATE 200 MG TABLET PO SCH (22:11)
[2017-01-30] MEDS: CEFUROXIME AXETIL 500 MG TABLET PO SCH (22:12)
[2017-01-30] MEDS: predniSONE 20 MG TABLET (UD) PO SCH (22:12)
[2017-01-31] MEDS: GABAPENTIN 300 MG CAPSULE (FP) PO SCH ×3 (06:09→22:44)
[2017-01-31] MEDS: chlordiazePOXIDE HCL 25 MG CAPSULE PO SCH ×4 (06:09→22:45)
[2017-01-31] MEDS ORDERED: cloNIDine HCL 0.1 MG TABLET PO ONE (07:31)
[2017-01-31] MEDS ORDERED: cloNIDine HCL 0.1 MG TABLET PO PRN ×2 (07:31→18:40)
--- NOTE | 2017-01-31 09:59 | EKG ---
Test Reason : Blood Pressure : / mmHG Vent. Rate : 090 BPM Atrial Rate : 090 BPM P-R Int : 188 ms QRS Dur : 096 ms QT Int : 380 ms P-R-T Axes : 075 035 079 degrees QTc Int : 464 ms NORMAL SINUS RHYTHM BIATRIAL ENLARGEMENT LEFT VENTRICULAR HYPERTROPHY INFERIOR INFARCT , AGE UNDETERMINED ABNORMAL ECG WHEN COMPARED WITH ECG OF 27-SEP-2016 13:53, NONSPECIFIC T WAVE ABNORMALITY NOW EVIDENT IN LATERAL LEADS Confirmed by BUSHRA AL MD ([id number]) on 01/31/2017 9:59:22 AM Referred By: Confirmed By:BUSHRA AL MD
[2017-01-31] MEDS: PRENATAL VITAMINS W/ FOLIC ACID TABLET (FP) PO SCH (10:43)
[2017-01-31] MEDS: valACYclovir HCL 500 MG TABLET (FP) PO SCH ×2 (10:43→22:44)
[2017-01-31] MEDS: predniSONE 20 MG TABLET (UD) PO SCH ×2 (10:44→22:43)
[2017-01-31] MEDS: ASPIRIN COATED 81 MG TABLET.EC PO SCH (10:44)
[2017-01-31] MEDS: RANITIDINE HCL 150 MG TABLET (FP) PO SCH (10:44)
[2017-01-31] MEDS: SERTRALINE HCL 50 MG TABLET (FP) PO SCH (10:44)
[2017-01-31] MEDS: ATOVAQUONE 750 MG/5 ML (UNIT-DOSE PACKAGING) PO SCH ×2 (10:45→22:45)
[2017-01-31] MEDS: CEFUROXIME AXETIL 500 MG TABLET PO SCH ×2 (10:45→22:43)
[2017-01-31] MEDS: NICOTINE 21 MG/24 HOURS TOPICAL PATCH TD SCH (10:45)
[2017-01-31] MEDS: amLODIPine BESYLATE 10 MG TABLET (FP) PO SCH (10:45)
[2017-01-31] MEDS: TIOTROPIUM BROMIDE 18 MCG/INH (DEVICE W/ 5 CAPSULES) IH SCH (10:45)
--- NOTE | 2017-01-31 12:37 | PN ---
S CIWA - CIWA Score Nausea/Vomitin-No Nausea/No Vomiting Muscle Tremors: 4-Moderate,w/Arms Extend Anxiety: 3 Agitation: 4-Moderately Restless Paroxysmal Sweats: 3 Orientation: 0-Oriented Tacttile Disturbances: 0-None Auditory Disturbances: 0-None Visual Disturbances: 0-None Headache: 0-None Present CIWA-Ar Total Score: 14 BHS Progress Note (SOAP) Subjective: itch to shingles on back sweats shakes interrupted sleep Objective: 01/31/17 12:35 Vital Signs Temperature 97.7 F 01/31/17 09:58 Pulse Rate 91 H 01/31/17 09:58 Respiratory Rate 18 01/31/17 09:58 Blood Pressure 152/107 01/31/17 09:58 O2 Sat by Pulse Oximetry (%) Laboratory Tests 01/30/17 01/30/17 01/30/17 11:40 11:40 11:40 WBC 6.7 D RBC 4.80 Hgb 13.1 Hct 40.4 MCV 84.3 MCH 27.4 MCHC 32.5 RDW 15.5 Plt Count 303 D MPV 7.7 D Sodium 144 Potassium 3.9 Chloride 108 H Carbon Dioxide 26 Anion Gap 10 BUN 28 H D Creatinine 1.0 Creat Clearance w eGFR 58.45 Random Glucose 115 H D Calcium 9.0 Total Bilirubin 0.5 AST 16 D ALT 25 D Alkaline Phosphatase 88 Total Protein 7.1 Albumin 3.3 L Urine Color Urine Appearance Urine pH Ur Specific [place] Urine Protein Urine Glucose (UA) Urine Ketones Urine Blood Urine Nitrite Urine Bilirubin Urine Urobilinogen Ur Leukocyte Esterase RPR Titer Nonreactive 01/30/17 14:51 WBC RBC Hgb Hct MCV MCH MCHC RDW Plt Count MPV Sodium Potassium Chloride Carbon Dioxide Anion Gap BUN Creatinine Creat Clearance w eGFR Random Glucose Calcium Total Bilirubin AST ALT Alkaline Phosphatase Total Protein Albumin Urine Color Ltyellow Urine Appearance Slcloudy Urine pH 5.0 Ur Specific [place] 1.015 Urine Protein Negative Urine Glucose (UA) Negative Urine Ketones Negative Urine Blood Negative Urine Nitrite Negative Urine Bilirubin Negative Urine Urobilinogen Negative Ur Leukocyte Esterase Negative RPR Titer [id number] ambulating no acute distress continue to monitor BP Assessment: 01/31/17 12:39 withdrawal sx Plan: continue detox increase fluids hydrocortizone lotion for back area metoprolol 50mg bid
[2017-01-31] MEDS: HYDROCORTISONE 1% TOPICAL LOTION 118 ML BOTTLE TP SCH ×2 (14:34→22:45)
[2017-01-31] MEDS: METOPROLOL SUCCINATE 50 MG TAB.SR.24H (FP) PO SCH (14:36)
[2017-01-31] MEDS: THIAMINE HCL 100 MG TABLET (FP) PO SCH (22:43)
[2017-01-31] MEDS: QUEtiapine FUMARATE 200 MG TABLET PO SCH (22:44)
[2017-01-31] MEDS: MONTELUKAST NA 10 MG TABLET PO SCH (22:44)
[2017-01-31] MEDS: ATORVASTATIN CA 20 MG TABLET (FP) PO SCH (22:44)
[2017-02-01] MEDS: GABAPENTIN 300 MG CAPSULE (FP) PO SCH ×3 (06:10→22:37)
[2017-02-01] MEDS: chlordiazePOXIDE HCL 25 MG CAPSULE PO SCH (06:11)
[2017-02-01] MEDS ORDERED: valACYclovir HCL 500 MG TABLET (FP) PO SCH (10:00)
[2017-02-01] MEDS: chlordiazePOXIDE 5 MG CAPSULE PO SCH ×3 (11:02→22:37)
[2017-02-01] MEDS: ATOVAQUONE 750 MG/5 ML (UNIT-DOSE PACKAGING) PO SCH ×2 (11:02→22:38)
[2017-02-01] MEDS: RANITIDINE HCL 150 MG TABLET (FP) PO SCH (11:03)
[2017-02-01] MEDS: CEFUROXIME AXETIL 500 MG TABLET PO SCH ×2 (11:03→22:38)
[2017-02-01] MEDS: SERTRALINE HCL 50 MG TABLET (FP) PO SCH (11:03)
[2017-02-01] MEDS: ASPIRIN COATED 81 MG TABLET.EC PO SCH (11:03)
[2017-02-01] MEDS: TIOTROPIUM BROMIDE 18 MCG/INH (DEVICE W/ 5 CAPSULES) IH SCH (11:04)
[2017-02-01] MEDS: amLODIPine BESYLATE 10 MG TABLET (FP) PO SCH (11:04)
[2017-02-01] MEDS: PRENATAL VITAMINS W/ FOLIC ACID TABLET (FP) PO SCH (11:04)
[2017-02-01] MEDS: predniSONE 20 MG TABLET (UD) PO SCH ×2 (11:06→22:37)
[2017-02-01] MEDS: METOPROLOL SUCCINATE 50 MG TAB.SR.24H (FP) PO SCH (11:06)
[2017-02-01] MEDS: NICOTINE 21 MG/24 HOURS TOPICAL PATCH TD SCH (11:57)
[2017-02-01] MEDS: HYDROCORTISONE 1% TOPICAL LOTION 118 ML BOTTLE TP SCH ×2 (11:57→22:41)
--- NOTE | 2017-02-01 12:51 | PN ---
S CIWA - CIWA Score Nausea/Vomitin Muscle Tremors: 3 Anxiety: 2 Agitation: 3 Paroxysmal Sweats: 2 Orientation: 0-Oriented Tacttile Disturbances: 0-None Auditory Disturbances: 0-None Visual Disturbances: 0-None Headache: 1-Very Mild CIWA-Ar Total Score: 13 S Progress Note (SOAP) Objective: 02/01/17 12:50 Vital Signs - 24 hr 01/31/17 01/31/17 01/31/17 15:00 15:21 18:30 Temperature 97.7 F 97.9 F 99.1 F Pulse Rate 91 H 82 85 Respiratory 18 18 18 Rate Blood Pressure 152/107 145/100 166/103 01/31/17 02/01/17 02/01/17 23:54 00:30 03:30 Temperature 98.2 F Pulse Rate 83 Respiratory 18 18 17 Rate Blood Pressure 159/97 02/01/17 02/01/17 06:51 11:27 Temperature 98.9 F 97.0 F L Pulse Rate 79 73 Respiratory 18 18 Rate Blood Pressure 143/109 150/99 Laboratory Tests 01/30/17 01/30/17 01/30/17 11:40 11:40 11:40 WBC 6.7 D RBC 4.80 Hgb 13.1 Hct 40.4 MCV 84.3 MCH 27.4 MCHC 32.5 RDW 15.5 Plt Count 303 D MPV 7.7 D Sodium 144 Potassium 3.9 Chloride 108 H Carbon Dioxide 26 Anion Gap 10 BUN 28 H D Creatinine 1.0 Creat Clearance w eGFR 58.45 Random Glucose 115 H D Calcium 9.0 Total Bilirubin 0.5 AST 16 D ALT 25 D Alkaline Phosphatase 88 Total Protein 7.1 Albumin 3.3 L Urine Color Urine Appearance Urine pH Ur Specific [place] Urine Protein Urine Glucose (UA) Urine Ketones Urine Blood Urine Nitrite Urine Bilirubin Urine Urobilinogen Ur Leukocyte Esterase RPR Titer Nonreactive 01/30/17 14:51 WBC RBC Hgb Hct MCV MCH MCHC RDW Plt Count MPV Sodium Potassium Chloride Carbon Dioxide Anion Gap BUN Creatinine Creat Clearance w eGFR Random Glucose Calcium Total Bilirubin AST ALT Alkaline Phosphatase Total Protein Albumin Urine Color Ltyellow Urine Appearance Slcloudy Urine pH 5.0 Ur Specific [place] 1.015 Urine Protein Negative Urine Glucose (UA) Negative Urine Ketones Negative Urine Blood Negative Urine Nitrite Negative Urine Bilirubin Negative Urine Urobilinogen Negative Ur Leukocyte Esterase Negative RPR Titer Assessment: 02/01/17 12:51 withdrawal Plan: cont detox protocol
[2017-02-01] MEDS: ATORVASTATIN CA 20 MG TABLET (FP) PO SCH (22:37)
[2017-02-01] MEDS: THIAMINE HCL 100 MG TABLET (FP) PO SCH (22:37)
[2017-02-01] MEDS: MONTELUKAST NA 10 MG TABLET PO SCH (22:38)
[2017-02-01] MEDS: QUEtiapine FUMARATE 200 MG TABLET PO SCH (22:38)
[2017-02-02] MEDS: GABAPENTIN 300 MG CAPSULE (FP) PO SCH (06:28)
[2017-02-02] MEDS: chlordiazePOXIDE 5 MG CAPSULE PO SCH (06:29)
--- NOTE | 2017-02-02 10:34 | DS ---
[facility] Detox Discharge Summary Admission Date: 01/30/17 Discharge Date: 02/02/17 - History Present History: Alcohol Dependence Pertinent Past History: Asthma AIDS Shingles HTN Hypercholesterolemia GERD - Physical Exam Results Vital Signs: Vital Signs Temperature 98.6 F 02/02/17 06:00 Pulse Rate 73 02/02/17 06:00 Respiratory Rate 18 02/02/17 06:00 Blood Pressure 145/100 02/02/17 06:00 O2 Sat by Pulse Oximetry (%) Pertinent Admission Physical Exam Findings: Withdrawal sx. Laboratory Tests 01/30/17 01/30/17 01/30/17 11:40 11:40 11:40 WBC 6.7 D RBC 4.80 Hgb 13.1 Hct 40.4 MCV 84.3 MCH 27.4 MCHC 32.5 RDW 15.5 Plt Count 303 D MPV 7.7 D Sodium 144 Potassium 3.9 Chloride 108 H Carbon Dioxide 26 Anion Gap 10 BUN 28 H D Creatinine 1.0 Creat Clearance w eGFR 58.45 Random Glucose 115 H D Calcium 9.0 Total Bilirubin 0.5 AST 16 D ALT 25 D Alkaline Phosphatase 88 Total Protein 7.1 Albumin 3.3 L Urine Color Urine Appearance Urine pH Ur Specific [place] Urine Protein Urine Glucose (UA) Urine Ketones Urine Blood Urine Nitrite Urine Bilirubin Urine Urobilinogen Ur Leukocyte Esterase RPR Titer Nonreactive 01/30/17 14:51 WBC RBC Hgb Hct MCV MCH MCHC RDW Plt Count MPV Sodium Potassium Chloride Carbon Dioxide laAnion Gap BUN Creatinine Creat Clearance w eGFR Random Glucose Calcium Total Bilirubin AST ALT Alkaline Phosphatase Total Protein Albumin Urine Color Ltyellow Urine Appearance Slcloudy Urine pH 5.0 Ur Specific [place] 1.015 Urine Protein Negative Urine Glucose (UA) Negative Urine Ketones Negative Urine Blood Negative Urine Nitrite Negative Urine Bilirubin Negative Urine Urobilinogen Negative Ur Leukocyte Esterase Negative RPR Titer labs noted - Treatment Patient has Accepted a Rehab Referral to: [facility] at [facility] - Medication Discharge Medications: Ambulatory Orders Albuterol Sulfate Inhaler - [Ventolin HFA Inhaler -] 2 inh PO Q4H PRN #1 inh Tiotropium [place] [Spiriva] 18 mcg IH DAILY 07/01/15 Aclidinium [place] [Tudorza -] 1 puff PO BID #1 inhaler 07/05/15 Amlodipine Besylate [Norvasc -] 10 mg PO DAILY #30 tablet 07/05/15 Aspirin Coated [Ecotrin -] 81 mg PO DAILY #30 tablet.ec 07/05/15 Atorvastatin Ca [Lipitor] 20 mg PO HS #30 tablet 07/05/15 Elviteg/Myriam/Emtric/Tenofo Dis [Stribild Tablet] 1 tab PO AM 02/07/16 Sertraline HCl [Zoloft] 100 mg PO DAILY #30 tablet 06/03/16 Sertraline HCl [Zoloft] 100 mg PO DAILY #30 tablet 09/28/16 Dapsone - 100 mg PO DAILY 01/30/17 Gabapentin [Neurontin -] 300 mg PO Q8H 01/30/17 Gabapentin [Neurontin -] 300 mg PO TID #90 cap 01/30/17 Metoprolol Succinate [Toprol Xl -] 50 mg PO DAILY 01/30/17 Montelukast Na [Singulair -] 10 mg PO HS 01/30/17 Multivitamin [One Daily] 1 each PO DAILY 01/30/17 Quetiapine Fumarate [Seroquel -] 200 mg PO HS #30 tab 01/30/17 Quetiapine Fumarate [Seroquel] 200 mg PO HS 01/30/17 Ranitidine [Zantac -] 150 mg PO DAILY 01/30/17 Sertraline HCl [Zoloft -] 100 mg PO DAILY #30 tablet 01/30/17 - Diagnosis (1) Alcohol dependence with withdrawal, uncomplicated Current Visit: Yes Status: Chronic (2) Essential hypertension Current Visit: Yes Status: Chronic (3) Hypercholesterolemia Current Visit: Yes Status: Chronic (4) Shingles Current Visit: Yes Status: Chronic Qualifiers: Herpes zoster complications: unspecified herpes zoster complication Qualified Code(s): B02.8 - Zoster with other complications; B02.8 - Zoster with other complications (5) Drug-induced mood disorder Current Visit: No Status: Acute (6) Asthma Current Visit: No Status: Chronic Qualifiers: Asthma severity: moderate persistent Asthma complication type: with acute exacerbation Qualified Code(s): J45.41 - Moderate persistent asthma with (acute) exacerbation; J45.41 - Moderate persistent asthma with (acute) exacerbation; J45.41 - Moderate persistent asthma with (acute) exacerbation (7) COPD (chronic obstructive pulmonary disease) Current Visit: No Status: Chronic Qualifiers: COPD type: COPD with acute exacerbation Qualified Code(s): J44.1 - Chronic obstructive pulmonary disease with (acute) exacerbation; J44.1 - Chronic obstructive pulmonary disease with (acute) exacerbation; J44.1 - Chronic obstructive pulmonary disease with (acute) exacerbation; J44.1 - Chronic obstructive pulmonary disease with (acute) exacerbation (8) Cocaine dependence Current Visit: Yes Status: Chronic Qualifiers: Substance use status: uncomplicated Qualified Code(s): F14.20 - Cocaine dependence, uncomplicated; F14.20 - Cocaine dependence, uncomplicated; F14.20 - Cocaine dependence, uncomplicated (9) GERD (gastroesophageal reflux disease) Current Visit: Yes Status: Chronic Qualifiers: Esophagitis presence: without esophagitis Qualified Code(s): K21.9 - Gastro-esophageal reflux disease without esophagitis; K21.9 - Gastro-esophageal reflux disease without esophagitis; K21.9 - Gastro-esophageal reflux disease without esophagitis (10) MDD (major depressive disorder) Current Visit: Yes Status: Chronic - AMA Did Patient Leave Against Medical Advice: Yes
[2017-02-02 10:59] VITALS: BP 164/109; PULSE 85; TEMP 97.3
[2017-02-02] MEDS ORDERED: chlordiazePOXIDE HCL 10 MG CAPSULE PO SCH (11:00)
== END 2017-02-02 09:25 | disposition left against medical advice (07) | DRG 770 ==
LOC: YASAS 09:12 → Y6N 13:39
PROVIDERS: ADMIT Internal Medicine; ATTEND Internal Medicine
PROC: HZ2ZZZZ Detoxification Services for Substance Abuse Treatment (ICD-10-PCS; principal; 2017-01-30)
DX: F10.230 Alcohol dependence with withdrawal, uncomplicated (principal); F14.20 Cocaine dependence, uncomplicated; F17.210 Nicotine dependence, cigarettes, uncomplicated; F19.24 Other psychoactive substance dependence with psychoactive substance-induced mood disorder; F33.9 Major depressive disorder, recurrent, unspecified; I10 Essential (primary) hypertension; J18.9 Pneumonia, unspecified organism; J45.41 Moderate persistent asthma with (acute) exacerbation; J44.1 Chronic obstructive pulmonary disease with (acute) exacerbation; R00.2 Palpitations; B02.8 Zoster with other complications; E78.00 Pure hypercholesterolemia, unspecified; K21.9 Gastro-esophageal reflux disease without esophagitis; Z87.42 Personal history of other diseases of the female genital tract; Z21 Asymptomatic human immunodeficiency virus [HIV] infection status; E87.6 Hypokalemia; Z88.2 Allergy status to sulfonamides; Z88.8 Allergy status to other drugs, medicaments and biological substances; Z91.048 Other nonmedicinal substance allergy status; Z87.898 Personal history of other specified conditions
CPT/HCPCS: 36415; 80053; 81003; 85027; 86593; 93005; 93010

== ENCOUNTER 2017-04-25 08:45 | Inpatient (IN) | payer OTHER ==
[2017-04-25 09:28] VITALS: BMI 23.5
--- NOTE | 2017-04-25 12:01 | HP ---
CIWA Score - CIWA Score Nausea/Vomitin-No Nausea/No Vomiting Muscle Tremors: 3 Anxiety: 3 Agitation: 4-Moderately Restless Paroxysmal Sweats: 1-Minimal Palms Moist Orientation: 0-Oriented Tacttile Disturbances: 3-Moderate Itch/Numb/Burn Auditory Disturbances: 0-None Visual Disturbances: 0-None Headache: 0-None Present CIWA-Ar Total Score: [address] [facility] Chief Complaint: WITHDRAWAL SX FROM ALCOHOL. Allergies/Adverse Reactions: Allergies Allergy/AdvReac Type Severity Reaction Status Date / Time lisinopril Allergy Intermediate Swelling Verified 09/27/16 11:04 Fish Containing Products Allergy Rash Verified 04/25/17 10:37 turkey Allergy Verified 01/30/17 10:37 erythromycin base AdvReac Rash Verified 09/27/16 11:04 sulfamethoxazole AdvReac Rash Verified 09/27/16 11:04 [From Bactrim] trimethoprim [From Bactrim] AdvReac Rash Verified 09/27/16 11:04 History of Present Illness: 51 Y/O AA/FEMALE WITH A HX OF ALCOHOL AND CRACK/COCAINE DEPENDENCE SEEKING DETOX TX. Exam Limitations: No Limitations - Ebola screening Have you traveled outside of the country in the last 21 days: No (N) Have you had contact with anyone from an Ebola affected area: No Have you been sick,other than usual withdrawal symptoms: No Do you have a fever: No - Review of Systems Constitutional: Chills, Loss of Appetite, Night Sweats, Changes in sleep, Unexplained wgt Loss EENT: reports: Blurred Vision (WEARS GLASSES), Tearing, Nose Congestion, Dental Problems (MISSING TEETH) Respiratory: reports: Shortness of Breath (HX ASTHMA AND COPD), Wheezing Cardiac: reports: Chest Pain, Lightheadedness, Palpitations GI: reports: Diarrhea, Nausea, Poor Appetite, Poor Fluid Intake, Vomiting, Indigestion, Abdominal cramping : reports: No Symptoms Reported Musculoskeletal: reports: Back Pain, Muscle Pain, Other (HX NEUROPATHY) Integumentary: reports: Dryness, Rash (ON SACRAL AREA--SHINGLES HX) Neuro: reports: Headache, Dizziness Endocrine: reports: No Symptoms Reported Hematology: reports: No Symptoms Reported Psychiatric: reports: Orientated x3, Depressed Other Systems: Reviewed and Negative Patient History - Patient Medical History Hx Anemia: No Hx Asthma: Yes (ON MEDS) Hx Chronic Obstructive Pulmonary Disease (COPD): Yes (ON MEDS) Hx Cancer: No Hx Cardiac Disorders: Yes (CHEST PAIN SOMETIMES) Hx Congestive Heart Failure: No Hx Hypertension: Yes (Pt is on meds.) Hx Hypercholesterolemia: Yes (on med) Hx Pacemaker: No HX Cerebrovascular Accident: No Hx Seizures: No Hx Dementia: No Hx Diabetes: No Hx Gastrointestinal Disorders: Yes (Hx of acid reflux.) Hx Liver Disease: No Hx Genitourinary Disorders: No Hx Sexually Transmitted Disorders: No Hx Renal Disease (ESRD): No Hx Thyroid Disease: No Hx Human Immunodeficiency Virus (HIV): Yes (ON GENVOYA ) Hx Hepatitis C: No Hx Depression: Yes (ON ZOLOFT) Hx Suicide Attempt: Yes (AT 11 YRS OLD OD ON MOTHER'S PILL;DENIES CURRENT S/H IDEATIONS) Hx Bipolar Disorder: No Hx Schizophrenia: No - Patient Surgical History Past Surgical History: Yes Hx Neurologic Surgery: No Hx Cataract Extraction: No Hx Cardiac Surgery: No Hx Lung Surgery: No Hx Breast Surgery: No Hx Breast Biopsy: No Hx Abdominal Surgery: No Hx Appendectomy: No Hx Cholecystectomy: No Hx Genitourinary Surgery: No Hx Section: No Hx Orthopedic Surgery: No Other Surgical History: ectopic since age 30 right ectopic Anesthesia Reaction: No - PPD History Previous Implant?: Yes Documented Results: Negative w/proof Implanted On Prior [facility] Admission?: Yes Date: 09/29/16 Results: 0 MM PPD to be Administered?: No - Reproductive History Patient is a Female of Child Bearing Age (11 -55 yrs old): Yes Last Menstrual Period: 06/13/11 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 History Hx Alcohol Use: Yes (VODKA/BEER) Hx Substance Use: Yes (CRACK/COCAINE) Substance Use Type: Alcohol, Cocaine Hx Substance Use Treatment: Yes ([facility] detox last tx) - Substances Abused Alcohol Route: Oral Frequency: Daily Amount used: 1-2 PINTS VODKA Age of first use: 16 Date of Last Use: 04/25/17 Crack Route: Smoking Frequency: Daily Amount used: $400 Age of first use: 18 Date of Last Use: 04/24/17 Family Disease History - Family Disease History Family Disease History: Diabetes: Father (alcohol,), Mother (alcohol, ), Heart Disease: Father, Mother, CA: Father, Mother, Respiratory: Father, Daughter Admission Physical Exam [facility] - Vital Signs Vital Signs: Vital Signs - 24 hr 04/25/17 09:25 Temperature 96.8 F L Pulse Rate 78 Respiratory 20 Rate Blood Pressure 145/98 - Physical General Appearance: Yes: Moderate Distress, Irritable, Anxious HEENTM: Yes: EOMI, Hearing grossly Normal, Normocephalic, Normal Voice, DAIANA, Pharynx Normal, Nasal Congestion Respiratory: Yes: Chest Non-Tender, No Respiratory Distress, Rhonchi, Wheezing ( RIGHT UPPER LUNG BASE), Expiration (RIGHT SIDE) Neck: Yes: No masses,lesions,Nodules, Supple, Trachea in good position Breast: Yes: Breast Exam Deferred Cardiology: Yes: Regular Rhythm, Regular Rate, S1, S2 Abdominal: Yes: Normal Bowel Sounds, Non Tender, Flat, Soft Genitourinary: Yes: Within Normal Limits Back: Yes: Normal Inspection Musculoskeletal: Yes: full range of Motion, Gait Steady Extremities: Yes: Normal Range of Motion, Non-Tender Neurological: Yes: jute bag clipper II-XII NML intact, Fully Oriented, Alert, Motor Strength 5/5 Integumentary: Yes: Dry, Warm, Rash (SACRAL AREA S/P SHINGLES) Lymphatic: Yes: Within Normal Limits - Diagnostic (1) AIDS (acquired immune deficiency syndrome) Current Visit: Yes Status: Chronic (2) Nicotine dependence Current Visit: Yes Status: Acute Qualifiers: Nicotine product type: cigarettes Substance use status: in withdrawal Qualified Code(s): F17.213 - Nicotine dependence, cigarettes, with withdrawal (3) Weight loss Current Visit: Yes Status: Chronic (4) Alcohol dependence with withdrawal, uncomplicated Current Visit: Yes Status: Acute (5) Asthma Current Visit: Yes Status: Chronic Qualifiers: Asthma severity: mild Asthma persistence: persistent Asthma complication type: uncomplicated Qualified Code(s): J45.30 - Mild persistent asthma, uncomplicated (6) COPD (chronic obstructive pulmonary disease) Current Visit: Yes Status: Chronic Qualifiers: COPD type: unspecified COPD Qualified Code(s): J44.9 - Chronic obstructive pulmonary disease, unspecified (7) Cocaine dependence Current Visit: Yes Status: Acute Qualifiers: Substance use status: uncomplicated Qualified Code(s): F14.20 - Cocaine dependence, uncomplicated (8) Essential hypertension Current Visit: Yes Status: Chronic (9) GERD (gastroesophageal reflux disease) Current Visit: Yes Status: Chronic Qualifiers: Esophagitis presence: esophagitis presence not specified Qualified Code(s) : K21.9 - Gastro-esophageal reflux disease without esophagitis (10) Heart murmur Current Visit: Yes Status: Suspected (11) Hypercholesterolemia Current Visit: Yes Status: Chronic (12) Palpitations Current Visit: Yes Status: Suspected (13) Shingles Current Visit: Yes Status: Chronic Qualifiers: Herpes zoster complications: unspecified herpes zoster complication Qualified Code(s): B02.8 - Zoster with other complications Cleared for Admission [facility] - Detox or Rehab [facility] Level of Care: Medically Managed Detox Regimen/Protocol: Librium S Breath Alcohol Content Breath Alcohol Content: 0.073 Urine Pregancy Test - Result Urine Test Results: Negative- NO Line Present Urine Drug Screen - Results Drug Screen Negative: No Urine Drug Screen Results: CHRISTOPHE-Cocaine, TCA-Tricyclic Antidepress
[2017-04-25] MEDS ORDERED: P-EPHED 60MG/TRIPROLIDI 2.5MG TABLET PO PRN (12:15)
[2017-04-25] MEDS ORDERED: IBUPROFEN 400 MG TABLET (FP) PO PRN (12:15)
[2017-04-25] MEDS ORDERED: ACETAMINOPHEN 325 MG TABLET (FP) PO PRN (12:15)
[2017-04-25] MEDS ORDERED: MENTHOL/PHENOL 1 EACH UD MM PRN (12:15)
[2017-04-25] MEDS ORDERED: MAGNESIUM HYDROX 2400MG/30ML ORAL SUSPENSION 30 ML CUP PO PRN (12:15)
[2017-04-25] MEDS ORDERED: MAGNESIUM CITRATE 300 ML BOTTLE PO PRN (12:15)
[2017-04-25] MEDS ORDERED: guaiFENesin/D-METHORPHAN HB 10 ML UNIT-DOSE CUPS PO PRN (12:15)
[2017-04-25] MEDS ORDERED: chlordiazePOXIDE HCL 25 MG CAPSULE PO PRN (12:15)
[2017-04-25] MEDS ORDERED: LOPERAMIDE HCL 2 MG CAPSULE PO PRN (12:15)
[2017-04-25] MEDS ORDERED: MAG HYDROX/AL HYDROX/SIMETH 30 ML UNIT-DOSE CUP PO PRN (12:15)
[2017-04-25] MEDS ORDERED: TIOTROPIUM BROMIDE 18 MCG/INH (DEVICE W/ 5 CAPSULES) IH SCH (12:30)
[2017-04-25] MEDS ORDERED: chlordiazePOXIDE HCL 25 MG CAPSULE PO ONE (12:46)
[2017-04-25 14:30] LABS: HEMATOCRIT 39.8 % (32.4-45.2); HEMOGLOBIN 12.7 GM/dL (10.7-15.3); MCH 27.3 pg (25.7-33.7); MCHC 31.9 g/dl (32.0-36.0); MEAN CELL VOLUME 85.4 fl (80-96); PLATELET COUNT 269 K/MM3 (134-434); RBC 4.66 M/mm3 (3.60-5.2); RDW 15.6 % (11.6-15.6); WHITE BLOOD COUNT 3.4 K/mm3 (4.0-10.0)
[2017-04-25 14:31] LABS: ALBUMIN 3.6 g/dl (3.4-5.0); ANION GAP 8 (8-16); BILIRUBIN,TOTAL 0.3 mg/dL (0.2-1.0); BLOOD UREA NITROGEN 11 mg/dL (7-18); CHLORIDE 110 mmol/L (98-107); CO2 26 mmol/L (21-32); CREATININE 0.8 mg/dL (0.55-1.02); GLUCOSE,RANDOM 71 mg/dL (74-106); SGPT/ALT 20 U/L (12-78); SODIUM 144 mmol/L (136-145); TOT PROT 7.8 g/dl (6.4-8.2)
[2017-04-25 14:32] LABS: ALK PHOS 128 U/L (45-117)
[2017-04-25 14:34] LABS: POTASSIUM 3.5 mmol/L (3.5-5.1); SGOT/AST 17 U/L (15-37)
[2017-04-25] MEDS ORDERED: ALBUTEROL SO4 0.083% IH SOL 2.5 MG/3 ML VIAL.NEB. NEB PRN (15:48)
[2017-04-25] MEDS: METOPROLOL SUCCINATE 50 MG TAB.SR.24H (FP) PO SCH (15:48)
[2017-04-25] MEDS: FLUCONAZOLE 100 MG TABLET (UD) PO SCH (15:48)
[2017-04-25] MEDS: GABAPENTIN 300 MG CAPSULE (FP) PO SCH ×2 (15:48→22:36)
[2017-04-25] MEDS: NICOTINE 14 MG/24 HOURS TOPICAL PATCH TD SCH (15:49)
[2017-04-25] MEDS: ELVITEG/COB/EMTRI/TENOF (GENVOYA) TABLET (NF) PO SCH (15:49)
[2017-04-25] MEDS: BUDESONIDE/FORMETEROL FUMARATE 80/4.5 mcg INHALER IH SCH ×2 (15:49→23:44)
[2017-04-25] MEDS: ASPIRIN COATED 81 MG TABLET.EC PO SCH (15:50)
[2017-04-25] MEDS: HYDROCORTISONE 1% TOPICAL OINT 30 GM TUBE TP SCH ×2 (15:59→22:37)
--- NOTE | 2017-04-25 17:04 | CONSULT ---
[facility] Psychiatric Consult - Data Date of interview: 04/25/17 Admission source: [facility] Identifying data: Pt is a 51 year old female, single, mother of two and currently unemployed. This is one of multiple admissions for patient. Pt. admitted to for alcohol and crack dependence. Substance Abuse History: Following information confirmed by Ms. Nathan: - Smoking Cessation. Smoking history: Current every day smoker. Have you smoked in the past 12 months: Yes. Aproximately how many cigarettes per day: 10. Hx Chewing Tobacco Use: No. Initiated information on smoking cessation: Yes. ' Breaking Loose' booklet given: 04/25/17. - Substance & Tx. History. Hx Alcohol Use: Yes (VODKA/BEER). Hx Substance Use: Yes (CRACK/COCAINE). Substance Use Type: Alcohol, Cocaine. Hx Substance Use Treatment: Yes. - Substances Abused. Alcohol. Route: Oral. Frequency: Daily. Amount used: 1 -2 PINTS VODKA. Age of first use: 16. Date of Last Use: 04/25/17. Crack. Route: Smoking. Frequency: Daily. Amount used: $4001. Age of first use: 18. Date of Last Use: 04/24/17 Medical History: Asthma, COPD, HIV, Hypertension, Acid reflux Psychiatric History: Pt. denies h/o psychiatric hospitalization. Reports OPC at [facility] on [address]. States she is currently prescribed zoloft 100mg and seroquel 200qhs and is compliant with her medications. Pt. reports increase depression secondary to her mother's in 2008, sister in 2009 and husbands in 2014. Pts. current protective factors are her two children and grandkids. Pt with one suicide attempt at 11 years of age via overdose on her mother pills. Physical/Sexual Abuse/Trauma History: Denies. Mental Status Exam - Mental Status Exam Alert and Oriented to: Time, Place, Person Cognitive Function: Good Mood: Sad, Hopeful Affect: Normal Range Patient Behavior: Appropriate, Cooperative Speech Pattern: Clear, Appropriate Voice Loudness: Normal Thought Process: Goal Oriented Thought Disorder: Not Present Hallucinations: Denies Suicidal Ideation: Denies Homicidal Ideation: Denies Insight/Judgement: Poor Sleep: Poorly Appetite: Fair Muscle strength/Tone: Normal Gait/Station: Normal Psychiatric Findings - Problem List ([place] 1, 2,3) (1) Alcohol dependence with withdrawal, uncomplicated Current Visit: Yes Status: Acute (2) Cocaine dependence Current Visit: Yes Status: Acute Qualifiers: Substance use status: uncomplicated Qualified Code(s): F14.20 - Cocaine dependence, uncomplicated (3) Nicotine dependence Current Visit: Yes Status: Acute Qualifiers: Nicotine product type: cigarettes Substance use status: in withdrawal Qualified Code(s): F17.213 - Nicotine dependence, cigarettes, with withdrawal (4) Insomnia Current Visit: Yes Status: Acute (5) MDD (major depressive disorder) Current Visit: Yes Status: Chronic Comment: Historical diagnosis. - Initial Treatment Plan Initial Treatment Plan: Psychoeducation provided. Detoxification in progress. Zoloft 100mg po daily and seroquel 150mg qhs (reduce dosage) ordered. Benefits and side effects discussed. Verbal consent given. Will continue to monitor.
[2017-04-25] MEDS: chlordiazePOXIDE HCL 25 MG CAPSULE PO SCH ×2 (17:43→22:36)
[2017-04-25] MEDS ORDERED: ACLIDINIUM BROMIDE PO SCH (22:00)
[2017-04-25] MEDS: THIAMINE HCL 100 MG TABLET (FP) PO SCH (22:36)
[2017-04-25] MEDS: QUEtiapine FUMARATE 50 MG TABLET PO SCH (22:36)
[2017-04-25] MEDS: MONTELUKAST NA 10 MG TABLET PO SCH (22:36)
[2017-04-25] MEDS: ATORVASTATIN CA 20 MG TABLET (FP) PO SCH (22:37)
[2017-04-25] MEDS: metroNIDAZOLE 0.75% VAGINAL GEL 70 GM TUBE VG SCH (23:44)
[2017-04-25] MEDS: ATOVAQUONE 750 MG/5 ML (UNIT-DOSE PACKAGING) PO SCH (23:44)
[2017-04-26] MEDS: chlordiazePOXIDE HCL 25 MG CAPSULE PO SCH ×4 (06:36→23:00)
[2017-04-26] MEDS: HYDROCORTISONE 1% TOPICAL OINT 30 GM TUBE TP SCH ×3 (07:36→23:00)
[2017-04-26] MEDS: GABAPENTIN 300 MG CAPSULE (FP) PO SCH ×3 (07:36→23:00)
[2017-04-26] MEDS: ATOVAQUONE 750 MG/5 ML (UNIT-DOSE PACKAGING) PO SCH ×2 (11:07→23:01)
[2017-04-26] MEDS: SERTRALINE HCL 50 MG TABLET (FP) PO SCH (11:08)
[2017-04-26] MEDS: ELVITEG/COB/EMTRI/TENOF (GENVOYA) TABLET (NF) PO SCH (11:08)
[2017-04-26] MEDS: METOPROLOL SUCCINATE 50 MG TAB.SR.24H (FP) PO SCH (11:09)
[2017-04-26] MEDS: RANITIDINE HCL 150 MG TABLET (FP) PO SCH (11:09)
[2017-04-26] MEDS: FLUCONAZOLE 100 MG TABLET (UD) PO SCH (11:09)
[2017-04-26] MEDS: ASPIRIN COATED 81 MG TABLET.EC PO SCH (11:09)
[2017-04-26] MEDS: TIOTROPIUM BROMIDE 18 MCG/INH (DEVICE W/ 5 CAPSULES) IH SCH (11:09)
[2017-04-26] MEDS: PRENATAL VITAMINS W/ FOLIC ACID TABLET (FP) PO SCH (11:09)
[2017-04-26] MEDS: BUDESONIDE/FORMETEROL FUMARATE 80/4.5 mcg INHALER IH SCH ×2 (11:10→22:59)
[2017-04-26] MEDS: NICOTINE 14 MG/24 HOURS TOPICAL PATCH TD SCH (11:13)
--- NOTE | 2017-04-26 11:30 | PN ---
S CIWA - CIWA Score Nausea/Vomitin Muscle Tremors: 3 Anxiety: 4-Mod. Anxious/Guarded Agitation: 3 Paroxysmal Sweats: 3 Orientation: 0-Oriented Tacttile Disturbances: 0-None Auditory Disturbances: 0-None Visual Disturbances: 0-None Headache: 0-None Present CIWA-Ar Total Score: 15 S Progress Note (SOAP) Subjective: night sweats tremors Objective: 04/26/17 11:28 Laboratory Last Values WBC 3.4 K/mm3 (4.0-10.0) L D 04/25/17 12:50 RBC 4.66 M/mm3 (3.60-5.2) 04/25/17 12:50 Hgb 12.7 GM/dL (10.7-15.3) 04/25/17 12:50 Hct 39.8 % (32.4-45.2) 04/25/17 12:50 MCV 85.4 fl (80-96) 04/25/17 12:50 MCH 27.3 pg (25.7-33.7) 04/25/17 12:50 MCHC 31.9 g/dl (32.0-36.0) L 04/25/17 12:50 RDW 15.6 % (11.6-15.6) 04/25/17 12:50 Plt Count 269 K/MM3 (134-434) 04/25/17 12:50 MPV 8.0 fl (7.5-11.1) 04/25/17 12:50 Sodium 144 mmol/L (136-145) 04/25/17 12:50 Potassium 3.5 mmol/L (3.5-5.1) 04/25/17 12:50 Chloride 110 mmol/L (98-107) H 04/25/17 12:50 Carbon Dioxide 26 mmol/L (21-32) 04/25/17 12:50 Anion Gap 8 (8-16) 04/25/17 12:50 BUN 11 mg/dL (7-18) 04/25/17 12:50 Creatinine 0.8 mg/dL (0.55-1.02) 04/25/17 12:50 Creat Clearance w eGFR > 60 (>60) 04/25/17 12:50 Random Glucose 71 mg/dL (74-106) L 04/25/17 12:50 Calcium 9.0 mg/dL (8.5-10.1) 04/25/17 12:50 Total Bilirubin 0.3 mg/dL (0.2-1.0) D 04/25/17 12:50 AST 17 U/L (15-37) 04/25/17 12:50 ALT 20 U/L (12-78) 04/25/17 12:50 Alkaline Phosphatase 128 U/L (45-117) H 04/25/17 12:50 Total Protein 7.8 g/dl (6.4-8.2) 04/25/17 12:50 Albumin 3.6 g/dl (3.4-5.0) 04/25/17 12:50 RPR Titer Nonreactive (NONREACTIVE) 04/25/17 12:50 labs noted Assessment: 04/26/17 11:29 sleepy tremors withdrawal sx Plan: continue detox
--- NOTE | 2017-04-26 17:04 | EKG ---
Test Reason : Blood Pressure : / mmHG Vent. Rate : 081 BPM Atrial Rate : 081 BPM P-R Int : 218 ms QRS Dur : 092 ms QT Int : 402 ms P-R-T Axes : 068 046 078 degrees QTc Int : 466 ms SINUS RHYTHM WITH 1ST DEGREE A-V BLOCK POSSIBLE LEFT ATRIAL ENLARGEMENT ANTERIOR INFARCT , AGE UNDETERMINED ABNORMAL ECG WHEN COMPARED WITH ECG OF 30-JAN-2017 14:41, ANTERIOR INFARCT IS NOW PRESENT CRITERIA FOR INFERIOR INFARCT ARE NO LONGER PRESENT Confirmed by DANIELA VÁSQUEZ MD ([id number]) on 04/26/2017 5:03:46 PM Referred By: Confirmed By:DANIELA VÁSQUEZ MD
[2017-04-26] MEDS: MONTELUKAST NA 10 MG TABLET PO SCH (23:00)
[2017-04-26] MEDS: QUEtiapine FUMARATE 50 MG TABLET PO SCH (23:00)
[2017-04-26] MEDS: ATORVASTATIN CA 20 MG TABLET (FP) PO SCH (23:03)
[2017-04-26] MEDS: THIAMINE HCL 100 MG TABLET (FP) PO SCH (23:09)
[2017-04-26] MEDS: metroNIDAZOLE 0.75% VAGINAL GEL 70 GM TUBE VG SCH (23:09)
[2017-04-27] MEDS: chlordiazePOXIDE HCL 25 MG CAPSULE PO SCH ×2 (05:53→10:50)
[2017-04-27] MEDS: GABAPENTIN 300 MG CAPSULE (FP) PO SCH ×3 (05:53→22:54)
[2017-04-27] MEDS: HYDROCORTISONE 1% TOPICAL OINT 30 GM TUBE TP SCH ×3 (06:49→22:53)
--- NOTE | 2017-04-27 10:41 | PN ---
[facility] CIWA - CIWA Score Nausea/Vomitin-No Nausea/No Vomiting Muscle Tremors: 3 Anxiety: 3 Agitation: 3 Paroxysmal Sweats: 1-Minimal Palms Moist Orientation: 0-Oriented Tacttile Disturbances: 0-None Auditory Disturbances: 0-None Visual Disturbances: 0-None Headache: 0-None Present CIWA-Ar Total Score: 10 S Progress Note (SOAP) Subjective: tremor anxiety agitation sweat Objective: 04/27/17 10:40 Vital Signs Temperature 97.7 F 04/27/17 06:00 Pulse Rate 68 04/27/17 06:00 Respiratory Rate 18 04/27/17 06:00 Blood Pressure 155/76 04/27/17 06:00 O2 Sat by Pulse Oximetry (%) Laboratory Last Values WBC 3.4 K/mm3 (4.0-10.0) L D 04/25/17 12:50 RBC 4.66 M/mm3 (3.60-5.2) 04/25/17 12:50 Hgb 12.7 GM/dL (10.7-15.3) 04/25/17 12:50 Hct 39.8 % (32.4-45.2) 04/25/17 12:50 MCV 85.4 fl (80-96) 04/25/17 12:50 MCH 27.3 pg (25.7-33.7) 04/25/17 12:50 MCHC 31.9 g/dl (32.0-36.0) L 04/25/17 12:50 RDW 15.6 % (11.6-15.6) 04/25/17 12:50 Plt Count 269 K/MM3 (134-434) 04/25/17 12:50 MPV 8.0 fl (7.5-11.1) 04/25/17 12:50 Sodium 144 mmol/L (136-145) 04/25/17 12:50 Potassium 3.5 mmol/L (3.5-5.1) 04/25/17 12:50 Chloride 110 mmol/L (98-107) H 04/25/17 12:50 Carbon Dioxide 26 mmol/L (21-32) 04/25/17 12:50 Anion Gap 8 (8-16) 04/25/17 12:50 BUN 11 mg/dL (7-18) 04/25/17 12:50 Creatinine 0.8 mg/dL (0.55-1.02) 04/25/17 12:50 Creat Clearance w eGFR > 60 (>60) 04/25/17 12:50 Random Glucose 71 mg/dL (74-106) L 04/25/17 12:50 Calcium 9.0 mg/dL (8.5-10.1) 04/25/17 12:50 Total Bilirubin 0.3 mg/dL (0.2-1.0) D 04/25/17 12:50 AST 17 U/L (15-37) 04/25/17 12:50 ALT 20 U/L (12-78) 04/25/17 12:50 Alkaline Phosphatase 128 U/L (45-117) H 04/25/17 12:50 Total Protein 7.8 g/dl (6.4-8.2) 04/25/17 12:50 Albumin 3.6 g/dl (3.4-5.0) 04/25/17 12:50 RPR Titer Nonreactive (NONREACTIVE) 04/25/17 12:50 lab noted Assessment: 04/27/17 10:41 withdrawal sx 04/27/17 10:45 hypertension Plan: continue detox patient was taking amlodopine 10 mg po daily at home begin amlodopine 10 mg po daily
[2017-04-27] MEDS: ATOVAQUONE 750 MG/5 ML (UNIT-DOSE PACKAGING) PO SCH ×2 (10:49→22:53)
[2017-04-27] MEDS: BUDESONIDE/FORMETEROL FUMARATE 80/4.5 mcg INHALER IH SCH ×2 (10:50→22:54)
[2017-04-27] MEDS: SERTRALINE HCL 50 MG TABLET (FP) PO SCH (10:50)
[2017-04-27] MEDS: FLUCONAZOLE 100 MG TABLET (UD) PO SCH (10:50)
[2017-04-27] MEDS: TIOTROPIUM BROMIDE 18 MCG/INH (DEVICE W/ 5 CAPSULES) IH SCH (10:50)
[2017-04-27] MEDS: METOPROLOL SUCCINATE 50 MG TAB.SR.24H (FP) PO SCH (10:50)
[2017-04-27] MEDS: ASPIRIN COATED 81 MG TABLET.EC PO SCH (10:50)
[2017-04-27] MEDS: PRENATAL VITAMINS W/ FOLIC ACID TABLET (FP) PO SCH (10:51)
[2017-04-27] MEDS: ELVITEG/COB/EMTRI/TENOF (GENVOYA) TABLET (NF) PO SCH (10:51)
[2017-04-27] MEDS: NICOTINE 14 MG/24 HOURS TOPICAL PATCH TD SCH (10:51)
[2017-04-27] MEDS: RANITIDINE HCL 150 MG TABLET (FP) PO SCH (10:51)
[2017-04-27] MEDS: ALBUTEROL SO4 18 GM HFA INHALER IH PRN (10:55)
[2017-04-27] MEDS: NICOTINE POLACRILEX 2 MG GUM BUC PRN ×2 (10:56→22:56)
[2017-04-27 14:24] LABS: URINE APPEARANCE CLEAR; URINE BILIRUBIN NEGATIVE (NEGATIVE); URINE BLOOD NEGATIVE (NEGATIVE); URINE COLOR LTYELLOW; URINE GLUCOSE (UA) NEGATIVE (NEGATIVE); URINE KETONE NEGATIVE (NEGATIVE); URINE LEUK ESTERASE NEGATIVE (NEGATIVE); URINE NITRITE NEGATIVE (NEGATIVE); URINE PROTEIN NEGATIVE (NEGATIVE); URINE UROBILINOGEN NEGATIVE mg/dL (0.2-1.0)
[2017-04-27] MEDS: chlordiazePOXIDE 5 MG CAPSULE PO SCH ×2 (17:34→22:53)
[2017-04-27] MEDS: ATORVASTATIN CA 20 MG TABLET (FP) PO SCH (22:53)
[2017-04-27] MEDS: MONTELUKAST NA 10 MG TABLET PO SCH (22:54)
[2017-04-27] MEDS: metroNIDAZOLE 0.75% VAGINAL GEL 70 GM TUBE VG SCH (22:54)
[2017-04-27] MEDS: QUEtiapine FUMARATE 50 MG TABLET PO SCH (22:54)
[2017-04-27] MEDS: THIAMINE HCL 100 MG TABLET (FP) PO SCH (22:55)
[2017-04-28] MEDS: GABAPENTIN 300 MG CAPSULE (FP) PO SCH ×3 (06:08→22:50)
[2017-04-28] MEDS: chlordiazePOXIDE 5 MG CAPSULE PO SCH ×2 (06:08→11:01)
[2017-04-28] MEDS: HYDROCORTISONE 1% TOPICAL OINT 30 GM TUBE TP SCH ×3 (06:09→22:49)
[2017-04-28] MEDS ORDERED: amLODIPine BESYLATE 10 MG TABLET (FP) PO SCH (10:00)
[2017-04-28] MEDS: ELVITEG/COB/EMTRI/TENOF (GENVOYA) TABLET (NF) PO SCH (11:01)
[2017-04-28] MEDS: RANITIDINE HCL 150 MG TABLET (FP) PO SCH (11:01)
[2017-04-28] MEDS: METOPROLOL SUCCINATE 50 MG TAB.SR.24H (FP) PO SCH (11:01)
[2017-04-28] MEDS: PRENATAL VITAMINS W/ FOLIC ACID TABLET (FP) PO SCH (11:01)
[2017-04-28] MEDS: SERTRALINE HCL 50 MG TABLET (FP) PO SCH (11:01)
[2017-04-28] MEDS: FLUCONAZOLE 100 MG TABLET (UD) PO SCH (11:01)
[2017-04-28] MEDS: ATOVAQUONE 750 MG/5 ML (UNIT-DOSE PACKAGING) PO SCH ×2 (11:02→22:49)
[2017-04-28] MEDS: BUDESONIDE/FORMETEROL FUMARATE 80/4.5 mcg INHALER IH SCH ×2 (11:02→22:49)
[2017-04-28] MEDS: amLODIPine BESYLATE 10 MG TABLET (FP) PO SCH (11:02)
[2017-04-28] MEDS: TIOTROPIUM BROMIDE 18 MCG/INH (DEVICE W/ 5 CAPSULES) IH SCH (11:02)
[2017-04-28] MEDS: ASPIRIN COATED 81 MG TABLET.EC PO SCH (11:02)
[2017-04-28] MEDS: NICOTINE 14 MG/24 HOURS TOPICAL PATCH TD SCH (11:08)
--- NOTE | 2017-04-28 14:30 | PN ---
S Progress Note (SOAP) Subjective: ALERT,IRRITABLE,INTERRUPTED SLEEP, Objective: 04/28/17 14:30 Vital Signs Temperature 97.2 F L 04/28/17 11:58 Pulse Rate 80 04/28/17 11:58 Respiratory Rate 18 04/28/17 11:58 Blood Pressure 153/97 04/28/17 11:58 O2 Sat by Pulse Oximetry (%) Assessment: 04/28/17 14:30 WITHDRAWAL SYMPTOM Plan: CONTINUE DETOX,DISCHARGE IN AM
[2017-04-28] MEDS: chlordiazePOXIDE HCL 10 MG CAPSULE PO SCH ×2 (17:18→22:50)
[2017-04-28] MEDS: metroNIDAZOLE 0.75% VAGINAL GEL 70 GM TUBE VG SCH (22:48)
[2017-04-28] MEDS: MONTELUKAST NA 10 MG TABLET PO SCH (22:50)
[2017-04-28] MEDS: THIAMINE HCL 100 MG TABLET (FP) PO SCH (22:50)
[2017-04-28] MEDS: ATORVASTATIN CA 20 MG TABLET (FP) PO SCH (22:50)
[2017-04-28] MEDS: QUEtiapine FUMARATE 50 MG TABLET PO SCH (22:50)
[2017-04-29] MEDS: chlordiazePOXIDE HCL 10 MG CAPSULE PO SCH (06:13)
[2017-04-29] MEDS: HYDROCORTISONE 1% TOPICAL OINT 30 GM TUBE TP SCH (06:13)
[2017-04-29] MEDS: GABAPENTIN 300 MG CAPSULE (FP) PO SCH (06:13)
[2017-04-29] MEDS ORDERED: cloNIDine HCL 0.1 MG TABLET PO ONE (06:14)
[2017-04-29] MEDS: ALBUTEROL SO4 18 GM HFA INHALER IH PRN (06:16)
[2017-04-29 06:52] VITALS: TEMP 97.2
[2017-04-29 07:38] VITALS: BP 133/84; PULSE 84
--- NOTE | 2017-04-29 08:38 | DS ---
[facility] Detox Discharge Summary Admission Date: 04/25/17 Discharge Date: 04/29/17 - History Present History: Alcohol Dependence, Cocaine Dependence - Physical Exam Results Vital Signs: Vital Signs Temperature 97.2 F L 04/29/17 06:52 Pulse Rate 84 04/29/17 07:37 Respiratory Rate 20 04/29/17 06:52 Blood Pressure 133/84 04/29/17 07:37 O2 Sat by Pulse Oximetry (%) - Treatment Hospital Course: Detox Protocol Followed, Detoxed Safely, Responded well, Discharged Condition Good, Rehab Referral Accepted - Medication Discharge Medications: Ambulatory Orders Albuterol Sulfate Inhaler - [Ventolin HFA Inhaler -] 2 inh PO Q4H PRN #1 inh Tiotropium Butler [Spiriva] 18 mcg IH DAILY 07/01/15 Amlodipine Besylate [Norvasc -] 10 mg PO DAILY #30 tablet 07/05/15 Aspirin Coated [Ecotrin -] 81 mg PO DAILY #30 tablet.ec 07/05/15 Atorvastatin Ca [Lipitor] 20 mg PO HS #30 tablet 07/05/15 Sertraline HCl [Zoloft] 100 mg PO DAILY #30 tablet 09/28/16 Gabapentin [Neurontin -] 300 mg PO TID #90 cap 01/30/17 Metoprolol Succinate [Toprol Xl -] 50 mg PO DAILY 01/30/17 Montelukast Na [Singulair -] 10 mg PO HS 01/30/17 Multivitamin [One Daily] 1 each PO DAILY 01/30/17 Quetiapine Fumarate [Seroquel -] 200 mg PO HS #30 tab 01/30/17 Ranitidine [Zantac -] 150 mg PO DAILY 01/30/17 Atovaquone [Mepron -] 750 mg PO BID 04/25/17 Elviteg/Cob/Emtri/Tenof Alafen [Genvoya Tablet] 1 each PO DAILY 04/25/17 Fluconazole [Diflucan -] 100 mg PO DAILY 04/25/17 Metronidazole 0.75% Vag. Gel [Metrogel 0.75% *Vaginal Gel* -] 1 applic VG HS 03/31 Mometasone/Formoterol [Dulera 200 Mcg/5 Mcg Inhaler] 2 inh IH BID 04/25/17 - Diagnosis (1) Alcohol dependence with withdrawal, uncomplicated Current Visit: Yes Status: Chronic (2) Cocaine dependence Current Visit: Yes Status: Chronic Qualifiers: Substance use status: uncomplicated Qualified Code(s): F14.20 - Cocaine dependence, uncomplicated (3) Insomnia Current Visit: Yes Status: Acute (4) Nicotine dependence Current Visit: Yes Status: Chronic Qualifiers: Nicotine product type: cigarettes Substance use status: uncomplicated Qualified Code(s): F17.210 - Nicotine dependence, cigarettes, uncomplicated (5) AIDS (acquired immune deficiency syndrome) Current Visit: Yes Status: Chronic (6) Asthma Current Visit: Yes Status: Chronic Qualifiers: Asthma severity: mild Asthma persistence: persistent Asthma complication type: uncomplicated Qualified Code(s): J45.30 - Mild persistent asthma, uncomplicated (7) COPD (chronic obstructive pulmonary disease) Current Visit: Yes Status: Chronic Qualifiers: COPD type: unspecified COPD Qualified Code(s): J44.9 - Chronic obstructive pulmonary disease, unspecified (8) Essential hypertension Current Visit: Yes Status: Chronic (9) GERD (gastroesophageal reflux disease) Current Visit: Yes Status: Chronic Qualifiers: Esophagitis presence: esophagitis presence not specified Qualified Code(s) : K21.9 - Gastro-esophageal reflux disease without esophagitis (10) Hypercholesterolemia Current Visit: Yes Status: Chronic (11) MDD (major depressive disorder) Current Visit: Yes Status: Chronic (12) Shingles Current Visit: Yes Status: Chronic Qualifiers: Herpes zoster complications: unspecified herpes zoster complication Qualified Code(s): B02.8 - Zoster with other complications (13) Weight loss Current Visit: Yes Status: Chronic (14) Heart murmur Current Visit: Yes Status: Suspected (15) Palpitations Current Visit: Yes Status: Suspected (16) Blackout Current Visit: No Status: Acute (17) Drug-induced mood disorder Current Visit: No Status: Acute (18) Pneumonia Current Visit: No Status: Acute (19) Depressive disorder Current Visit: No Status: Chronic (20) Hypokalemia Current Visit: No Status: Suspected - AMA Did Patient Leave Against Medical Advice: No
[2017-04-29] MEDS: TIOTROPIUM BROMIDE 18 MCG/INH (DEVICE W/ 5 CAPSULES) IH SCH (09:16)
[2017-04-29] MEDS: RANITIDINE HCL 150 MG TABLET (FP) PO SCH (09:16)
[2017-04-29] MEDS: FLUCONAZOLE 100 MG TABLET (UD) PO SCH (09:16)
[2017-04-29] MEDS: amLODIPine BESYLATE 10 MG TABLET (FP) PO SCH (09:16)
[2017-04-29] MEDS: SERTRALINE HCL 50 MG TABLET (FP) PO SCH (09:16)
[2017-04-29] MEDS: ASPIRIN COATED 81 MG TABLET.EC PO SCH (09:16)
[2017-04-29] MEDS: METOPROLOL SUCCINATE 50 MG TAB.SR.24H (FP) PO SCH (09:16)
[2017-04-29] MEDS: ATOVAQUONE 750 MG/5 ML (UNIT-DOSE PACKAGING) PO SCH (09:17)
[2017-04-29] MEDS: ELVITEG/COB/EMTRI/TENOF (GENVOYA) TABLET (NF) PO SCH (09:17)
[2017-04-29] MEDS: PRENATAL VITAMINS W/ FOLIC ACID TABLET (FP) PO SCH (09:17)
[2017-04-29] MEDS: BUDESONIDE/FORMETEROL FUMARATE 80/4.5 mcg INHALER IH SCH (09:18)
[2017-04-29] MEDS: NICOTINE 14 MG/24 HOURS TOPICAL PATCH TD SCH (09:22)
== END 2017-04-29 09:33 | disposition home or self-care (01) | DRG 774 ==
LOC: YASAS 08:45 → Y6N 12:37
PROVIDERS: ADMIT Internal Medicine; ATTEND Internal Medicine
PROC: HZ2ZZZZ Detoxification Services for Substance Abuse Treatment (ICD-10-PCS; principal; 2017-04-25)
DX: F10.230 Alcohol dependence with withdrawal, uncomplicated (principal); F14.20 Cocaine dependence, uncomplicated; F17.210 Nicotine dependence, cigarettes, uncomplicated; F33.9 Major depressive disorder, recurrent, unspecified; F19.24 Other psychoactive substance dependence with psychoactive substance-induced mood disorder; B20 Human immunodeficiency virus [HIV] disease; J45.30 Mild persistent asthma, uncomplicated; J44.9 Chronic obstructive pulmonary disease, unspecified; G47.00 Insomnia, unspecified; I10 Essential (primary) hypertension; K21.9 Gastro-esophageal reflux disease without esophagitis; E78.00 Pure hypercholesterolemia, unspecified; B02.8 Zoster with other complications; R01.1 Cardiac murmur, unspecified; R00.2 Palpitations; J18.9 Pneumonia, unspecified organism; E87.6 Hypokalemia; R25.1 Tremor, unspecified; Z86.73 Personal history of transient ischemic attack (TIA), and cerebral infarction without residual deficits; Z91.013 Allergy to seafood; Z88.2 Allergy status to sulfonamides; Z88.1 Allergy status to other antibiotic agents; Z87.898 Personal history of other specified conditions; Z91.5 Personal history of self-harm
CPT/HCPCS: 36415; 80053; 81003; 85027; 86593; 93005; 93010

== ENCOUNTER 2017-09-13 10:43 | Inpatient (IN) | payer OTHER ==
[2017-09-13 15:45] VITALS: BMI 25.3
--- NOTE | 2017-09-13 15:51 | HP ---
CIWA Score - CIWA Score Nausea/Vomitin-No Nausea/No Vomiting Muscle Tremors: 3 Anxiety: 3 Agitation: 3 Paroxysmal Sweats: 2 Orientation: 0-Oriented Tacttile Disturbances: 1-Very Mild Itch/Numbness (both feet) Auditory Disturbances: 0-None Visual Disturbances: 0-None Headache: 2-Mild CIWA-Ar Total Score: 14 Admission ROS S - HPI Chief Complaint: alcohol withdrawal symptoms Allergies/Adverse Reactions: Allergies Allergy/AdvReac Type Severity Reaction Status Date / Time lisinopril Allergy Severe Swelling Verified 07/29/17 14:32 turkey Allergy Severe Rash Verified 07/29/17 14:32 Fish Containing Products Allergy Rash Verified 07/29/17 14:32 erythromycin base AdvReac Severe Rash Verified 07/29/17 14:32 sulfamethoxazole AdvReac Severe Rash Verified 07/29/17 14:32 [From Bactrim] trimethoprim [From Bactrim] AdvReac Severe Rash Verified 07/29/17 14:32 History of Present Illness: 52 yo female with hx of alcohol and crac/ cocaine dependence is here seeking detox. PMHX: COPD, HIV+, hyperlipidemia, HTN, depression. Denies suicidal / homicidal ideation. Reports suicide attempt as a child. Denies hx of blackouts or seizures. Last detox [facility] 07/29/17 -08/02/17. Exam Limitations: No Limitations - Ebola screening Have you traveled outside of the country in the last 21 days: No (N) Have you had contact with anyone from an Ebola affected area: No Have you been sick,other than usual withdrawal symptoms: No Do you have a fever: No - Review of Systems Constitutional: Chills, Diaphoresis, Loss of Appetite, Weakness EENT: reports: Other (weras bifocal) Cardiac: reports: No Symptoms Reported GI: reports: Nausea, Poor Fluid Intake : reports: No Symptoms Reported Musculoskeletal: reports: Back Pain (low back pain) Integumentary: reports: Other (swelling left leg) Neuro: reports: Headache, Numbness Endocrine: reports: Intolerance to Heat, Increased Thirst Hematology: reports: No Symptoms Reported Psychiatric: reports: Orientated x3, Depressed Other Systems: Reviewed and Negative Patient History - Patient Medical History Hx Anemia: No Hx Asthma: Yes (MDI) Hx Chronic Obstructive Pulmonary Disease (COPD): Yes (MDI) Hx Cancer: No Hx Cardiac Disorders: No Hx Congestive Heart Failure: No Hx Hypertension: Yes Hx Hypercholesterolemia: Yes (on med) Hx Pacemaker: No HX Cerebrovascular Accident: No Hx Seizures: No Hx Dementia: No Hx Diabetes: No Hx Gastrointestinal Disorders: No Hx Liver Disease: No Hx Genitourinary Disorders: No Hx Sexually Transmitted Disorders: Yes (16 yrs old) Hx Renal Disease (ESRD): No Hx Thyroid Disease: No Hx Human Immunodeficiency Virus (HIV): Yes (ON GENVOYA ) Hx Hepatitis C: No Hx Depression: Yes Hx Suicide Attempt: Yes (11 yrs old;DENIES S/I) Hx Bipolar Disorder: No Hx Schizophrenia: No - Patient Surgical History Past Surgical History: Yes Hx Neurologic Surgery: No Hx Cataract Extraction: No Hx Cardiac Surgery: No Hx Lung Surgery: No Hx Breast Surgery: No Hx Breast Biopsy: No Hx Abdominal Surgery: No Hx Appendectomy: No Hx Cholecystectomy: No Hx Genitourinary Surgery: No Hx Section: No Hx Orthopedic Surgery: No Hx Hysterectomy: No Other Surgical History: ectopic since age 30 right ectopic Anesthesia Reaction: No - PPD History Previous Implant?: Yes Documented Results: Negative w/proof Date: 09/29/16 Results: 0 mm PPD to be Administered?: Yes - Reproductive History Patient is a Female of Child Bearing Age (11 -55 yrs old): No (post menopausal ) Last Menstrual Period: 06/13/11 - Smoking Cessation Smoking history: Current every day smoker Have you smoked in the past 12 months: Yes Aproximately how many cigarettes per day: 10 Cigars Per Day: 0 Hx Chewing Tobacco Use: No Initiated information on smoking cessation: Yes 'Breaking Loose' booklet given: 09/13/17 - Substance & Tx. History Hx Alcohol Use: Yes Hx Substance Use: Yes Substance Use Type: Alcohol Hx Substance Use Treatment: Yes ([facility] 07/29/17 -08/02/17) - Substances Abused Alcohol Route: Oral Frequency: Daily Amount used: 1 - 1.5 vodak + 3 x 24 oz beer Age of first use: 16 Date of Last Use: 09/13/17 Crack Route: Inhalation Frequency: Daily Amount used: $200 - 300 Age of first use: 18 Date of Last Use: 09/12/17 Family Disease History - Family Disease History Family Disease History: Diabetes: Father (alcohol,), Mother (alcohol, ), Heart Disease: Father, Mother, CA: Father, Mother, Respiratory: Father, Daughter Admission Physical Exam BHS - Vital Signs Vital Signs: Vital Signs - 24 hr 09/13/17 15:43 Temperature 97.4 F L Pulse Rate 92 H Respiratory 18 Rate Blood Pressure 146/99 - Physical General Appearance: Yes: Disheveled, Irritable, Sweating, Anxious HEENTM: Yes: EOMI, Hearing grossly Normal, Normal ENT Inspection, Normocephalic , Normal Voice, DAIANA, Pharynx Normal, Tm's normal, Other (poor dentition) Respiratory: Yes: Chest Non-Tender, No Respiratory Distress, No Accessory Muscle Use, Wheezing Neck: Yes: No masses,lesions,Nodules, Trachea in good position Breast: Yes: Breast Exam Deferred Cardiology: Yes: Regular Rhythm, Regular Rate, Murmur Abdominal: Yes: Within Normal Limits Genitourinary: Yes: Within Normal Limits Back: Yes: Normal Inspection Musculoskeletal: Yes: full range of Motion, Gait Steady, Pelvis Stable Extremities: Yes: Normal Capillary Refill, Normal Inspection, Normal Range of Motion, Non-Tender Neurological: Yes: tester rocket engine II-XII NML intact, Fully Oriented, Alert, Motor Strength 5/5, Depressed Affect Integumentary: Yes: Normal Color, Warm, Diaphoresis Lymphatic: Yes: Within Normal Limits - Diagnostic (1) Depressed mood Current Visit: Yes Status: Acute (2) Alcohol dependence with withdrawal, uncomplicated Current Visit: Yes Status: Acute (3) AIDS (acquired immune deficiency syndrome) Current Visit: Yes Status: Chronic Comment: on Genvoya (4) COPD (chronic obstructive pulmonary disease) Current Visit: Yes Status: Chronic Qualifiers: COPD type: unspecified COPD Qualified Code(s): J44.9 - Chronic obstructive pulmonary disease, unspecified (5) Cocaine dependence Current Visit: Yes Status: Chronic Qualifiers: Substance use status: uncomplicated Qualified Code(s): F14.20 - Cocaine dependence, uncomplicated (6) Essential hypertension Current Visit: Yes Status: Chronic (7) GERD (gastroesophageal reflux disease) Current Visit: Yes Status: Chronic Qualifiers: Esophagitis presence: esophagitis presence not specified Qualified Code(s) : K21.9 - Gastro-esophageal reflux disease without esophagitis (8) Hypercholesterolemia Current Visit: Yes Status: Chronic (9) Nicotine dependence Current Visit: Yes Status: Chronic Qualifiers: Nicotine product type: cigarettes Substance use status: uncomplicated Qualified Code(s): F17.210 - Nicotine dependence, cigarettes, uncomplicated (10) Wheezing Current Visit: Yes Status: Acute (11) Elevated blood pressure reading in office with diagnosis of hypertension Current Visit: Yes Status: Acute Cleared for Admission [facility] - Detox or Rehab [facility] Level of Care: Medically Managed Detox Regimen/Protocol: Librium S Breath Alcohol Content Breath Alcohol Content: 0 Urine Pregancy Test - Result Urine Test Results: Negative- NO Line Present Urine Drug Screen - Results Drug Screen Negative: No Urine Drug Screen Results: CHRISTOPHE-Cocaine, TCA-Tricyclic Antidepress
[2017-09-13] MEDS ORDERED: P-EPHED 60MG/TRIPROLIDI 2.5MG TABLET PO PRN (15:58)
[2017-09-13] MEDS ORDERED: NICOTINE POLACRILEX 2 MG GUM BC PRN (15:58)
[2017-09-13] MEDS ORDERED: MENTHOL/PHENOL 1 EACH UD MM PRN (15:58)
[2017-09-13] MEDS ORDERED: guaiFENesin/D-METHORPHAN HB 10 ML UNIT-DOSE CUPS PO PRN (15:58)
[2017-09-13] MEDS ORDERED: MAGNESIUM HYDROX 2400MG/30ML ORAL SUSPENSION 30 ML CUP PO PRN (15:58)
[2017-09-13] MEDS ORDERED: IBUPROFEN 400 MG TABLET (FP) PO PRN (15:58)
[2017-09-13] MEDS ORDERED: chlordiazePOXIDE HCL 25 MG CAPSULE PO ONE ×2 (15:58→19:15)
[2017-09-13] MEDS ORDERED: ACETAMINOPHEN 325 MG TABLET (FP) PO PRN (15:58)
[2017-09-13] MEDS ORDERED: LOPERAMIDE HCL 2 MG CAPSULE PO PRN (15:58)
[2017-09-13] MEDS ORDERED: chlordiazePOXIDE HCL 25 MG CAPSULE PO PRN (15:58)
[2017-09-13] MEDS ORDERED: MAGNESIUM CITRATE 300 ML BOTTLE PO PRN (15:58)
[2017-09-13] MEDS ORDERED: hydrOXYzine PAMOATE 50 MG CAPSULE (FP) PO PRN (15:58)
[2017-09-13] MEDS ORDERED: MAG HYDROX/AL HYDROX/SIMETH 30 ML UNIT-DOSE CUP PO PRN (15:58)
[2017-09-13] MEDS ORDERED: ALBUTEROL SO4 18 GM HFA INHALER IH PRN (16:35)
[2017-09-13] MEDS ORDERED: ALBUTEROL SO4 2.5/IPRATROPIUM 0.5 INH SOL 3 ML VIAL.NEB. NEB PRN (16:35)
[2017-09-13] MEDS ORDERED: MELATONIN 5 MG TABLETS PO PRN (22:00)
[2017-09-13] MEDS ORDERED: PATIENT'S OWN MEDICATION (NON-FORMULARY) (Mometasone/Formoterol [Dulera 200 Mcg/5 Mcg Inha IH SCH (22:00)
[2017-09-13] MEDS: GABAPENTIN 300 MG CAPSULE (FP) PO SCH (22:25)
[2017-09-13] MEDS: BUDESONIDE/FORMETEROL FUMARATE 160/4.5 mcg INHALER IH SCH (22:25)
[2017-09-13] MEDS: THIAMINE HCL 100 MG TABLET (FP) PO SCH (22:25)
[2017-09-13] MEDS: chlordiazePOXIDE HCL 25 MG CAPSULE PO SCH (22:25)
[2017-09-13] MEDS: ATORVASTATIN CA 20 MG TABLET (FP) PO SCH (22:25)
[2017-09-14] MEDS: chlordiazePOXIDE HCL 25 MG CAPSULE PO SCH ×4 (05:24→22:31)
[2017-09-14] MEDS: GABAPENTIN 300 MG CAPSULE (FP) PO SCH ×3 (05:24→22:31)
[2017-09-14] MEDS ORDERED: MULTIVITAMINS (DAILY MVI) TABLET (FP) PO SCH (10:00)
[2017-09-14 10:55] LABS: HEMOGLOBIN 12.8 GM/dL (10.7-15.3); MCH 28.4 pg (25.7-33.7); MCHC 32.8 g/dl (32.0-36.0); MEAN CELL VOLUME 86.4 fl (80-96); PLATELET COUNT 252 K/MM3 (134-434); RBC 4.51 M/mm3 (3.60-5.2); RDW 14.5 % (11.6-15.6); WHITE BLOOD COUNT 2.5 K/mm3 (4.0-10.0)
[2017-09-14 10:58] LABS: URINE APPEARANCE CLEAR; URINE BILIRUBIN NEGATIVE (<2.0 mg/dL); URINE BLOOD NEGATIVE (NEGATIVE); URINE COLOR LTYELLOW; URINE GLUCOSE (UA) NEGATIVE (NEGATIVE); URINE KETONE NEGATIVE (NEGATIVE); URINE LEUK ESTERASE NEGATIVE (NEGATIVE); URINE NITRITE NEGATIVE (NEGATIVE); URINE PROTEIN NEGATIVE (NEGATIVE); URINE UROBILINOGEN NEGATIVE mg/dL (0.2-1.0)
[2017-09-14 11:05] LABS: CHLORIDE 108 mmol/L (98-107); POTASSIUM 3.3 mmol/L (3.5-5.1); SODIUM 142 mmol/L (136-145)
[2017-09-14 11:13] LABS: ALBUMIN 3.4 g/dl (3.4-5.0); ALK PHOS 136 U/L (45-117); ANION GAP 4 (8-16); BILIRUBIN,TOTAL 0.3 mg/dL (0.2-1.0); BLOOD UREA NITROGEN 15 mg/dL (7-18); CALCIUM 8.4 mg/dL (8.5-10.1); CO2 30 mmol/L (21-32); CREATININE 0.8 mg/dL (0.55-1.02); GLUCOSE,RANDOM 78 mg/dL (74-106); SGOT/AST 18 U/L (15-37); SGPT/ALT 23 U/L (12-78); TOT PROT 6.4 g/dl (6.4-8.2)
[2017-09-14] MEDS: PRENATAL VITAMINS W/ FOLIC ACID TABLET (FP) PO SCH (11:15)
[2017-09-14] MEDS: TIOTROPIUM BROMIDE 18 MCG CAPSULES IH SCH (11:16)
[2017-09-14] MEDS: NICOTINE 14 MG/24 HOURS TOPICAL PATCH TD SCH (11:16)
[2017-09-14] MEDS: BUDESONIDE/FORMETEROL FUMARATE 160/4.5 mcg INHALER IH SCH ×2 (11:17→22:30)
[2017-09-14] MEDS: ASPIRIN COATED 81 MG TABLET.EC PO SCH (11:17)
[2017-09-14] MEDS: HYDROCHLOROTHIAZIDE 25 MG TABLET (FP) PO SCH (11:17)
[2017-09-14] MEDS: amLODIPine BESYLATE 10 MG TABLET (FP) PO SCH (11:17)
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
--- NOTE | 2017-09-14 13:46 | PN ---
S CIWA - CIWA Score Nausea/Vomitin-Mild Nausea/No Vomiting Muscle Tremors: 4-Moderate,w/Arms Extend Anxiety: 3 Agitation: 3 Paroxysmal Sweats: 1-Minimal Palms Moist Orientation: 0-Oriented Tacttile Disturbances: 0-None Auditory Disturbances: 0-None Visual Disturbances: 0-None Headache: 0-None Present CIWA-Ar Total Score: 12 BHS Progress Note (SOAP) Subjective: sweat tremor anxiety restlessness trouble sleep at night Objective: 09/14/17 13:42 Vital Signs Temperature 98.1 F 09/14/17 09:20 Pulse Rate 91 H 09/14/17 09:20 Respiratory Rate 18 09/14/17 09:20 Blood Pressure 142/96 09/14/17 09:20 O2 Sat by Pulse Oximetry (%) Laboratory Last Values WBC 2.5 K/mm3 (4.0-10.0) L 09/14/17 07:40 RBC 4.51 M/mm3 (3.60-5.2) 09/14/17 07:40 Hgb 12.8 GM/dL (10.7-15.3) 09/14/17 07:40 Hct 39.0 % (32.4-45.2) 09/14/17 07:40 MCV 86.4 fl (80-96) 09/14/17 07:40 MCH 28.4 pg (25.7-33.7) 09/14/17 07:40 MCHC 32.8 g/dl (32.0-36.0) 09/14/17 07:40 RDW 14.5 % (11.6-15.6) 09/14/17 07:40 Plt Count 252 K/MM3 (134-434) 09/14/17 07:40 MPV 8.0 fl (7.5-11.1) 09/14/17 07:40 Sodium 142 mmol/L (136-145) 09/14/17 07:40 Potassium 3.3 mmol/L (3.5-5.1) L 09/14/17 07:40 Chloride 108 mmol/L (98-107) H 09/14/17 07:40 Carbon Dioxide 30 mmol/L (21-32) 09/14/17 07:40 Anion Gap 4 (8-16) L 09/14/17 07:40 BUN 15 mg/dL (7-18) 09/14/17 07:40 Creatinine 0.8 mg/dL (0.55-1.02) 09/14/17 07:40 Creat Clearance w eGFR > 60 (>60) 09/14/17 07:40 Random Glucose 78 mg/dL (74-106) 09/14/17 07:40 Calcium 8.4 mg/dL (8.5-10.1) L 09/14/17 07:40 Total Bilirubin 0.3 mg/dL (0.2-1.0) D 09/14/17 07:40 AST 18 U/L (15-37) 09/14/17 07:40 ALT 23 U/L (12-78) 09/14/17 07:40 Alkaline Phosphatase 136 U/L (45-117) H 09/14/17 07:40 Total Protein 6.4 g/dl (6.4-8.2) 09/14/17 07:40 Albumin 3.4 g/dl (3.4-5.0) 09/14/17 07:40 Urine Color Ltyellow 09/14/17 08:15 Urine Appearance Clear 09/14/17 08:15 Urine pH 5.0 (5.0-8.0) 09/14/17 08:15 Ur Specific [place] 1.014 (1.001-1.035) 09/14/17 08:15 Urine Protein Negative (NEGATIVE) 09/14/17 08:15 Urine Glucose (UA) Negative (NEGATIVE) 09/14/17 08:15 Urine Ketones Negative (NEGATIVE) 09/14/17 08:15 Urine Blood Negative (NEGATIVE) 09/14/17 08:15 Urine Nitrite Negative (NEGATIVE) 09/14/17 08:15 Urine Bilirubin Negative (<2.0 mg/dL) 09/14/17 08:15 Urine Urobilinogen Negative mg/dL (0.2-1.0) 09/14/17 08:15 Ur Leukocyte Esterase Negative (NEGATIVE) 09/14/17 08:15 RPR Titer Nonreactive (NONREACTIVE) 09/14/17 07:40 lab noted K+ low wbc2.5 Assessment: 09/14/17 13:43 withdrawal sx hiv hypokalemia Plan: continue detox K+ supplement encourage to bring in ART medication
[2017-09-14] MEDS: SERTRALINE HCL 50 MG TABLET (FP) PO SCH (15:23)
[2017-09-14] MEDS: POTASSIUM CHLORIDE TABS 20 MEQ TABLET.ER (FP) PO SCH ×2 (15:23→22:31)
[2017-09-14] MEDS: THIAMINE HCL 100 MG TABLET (FP) PO SCH (22:31)
[2017-09-14] MEDS: ATORVASTATIN CA 20 MG TABLET (FP) PO SCH (22:31)
--- NOTE | 2017-09-14 22:42 | EKG ---
Test Reason : Blood Pressure : / mmHG Vent. Rate : 079 BPM Atrial Rate : 079 BPM P-R Int : 216 ms QRS Dur : 096 ms QT Int : 412 ms P-R-T Axes : 063 036 077 degrees QTc Int : 472 ms SINUS RHYTHM WITH 1ST DEGREE A-V BLOCK CANNOT RULE OUT ANTEROSEPTAL INFARCT (CITED ON OR BEFORE 25-APR-2017) ABNORMAL ECG WHEN COMPARED WITH ECG OF 29-JUL-2017 17:27, NO SIGNIFICANT CHANGE WAS FOUND Confirmed by DANIELA VÁSQUEZ MD ([id number]) on 09/14/2017 10:42:03 PM Referred By: Confirmed By:DANIELA VÁSQUEZ MD
[2017-09-14] MEDS: QUEtiapine FUMARATE 200 MG TABLET PO SCH (22:45)
[2017-09-15] MEDS: chlordiazePOXIDE HCL 25 MG CAPSULE PO SCH ×3 (05:18→17:33)
[2017-09-15] MEDS: GABAPENTIN 300 MG CAPSULE (FP) PO SCH ×3 (05:18→22:35)
--- NOTE | 2017-09-15 09:02 | PN ---
Psychiatric Progress Note Vital Signs: Vital Signs Period Temp Pulse Resp BP Sys/Newman Pulse Ox Last 24 Hr 97.5 F-98.1 F 69-91 16-20 141-154/84-106 Date of Session: 09/15/17 Chief Complaint:: Insomnia HPI: Patient approached publications writer in the lobby and asking for psychiatric evaluation and medications orders Current Medications: Active Medications Generic Name Dose Route Start Last Admin Trade Name Freq PRN Reason Stop Dose Admin Acetaminophen 650 mg 09/13/17 15:58 Tylenol - PO Q4H PRN FEVER Al Hydroxide/Mg Hydroxide 30 ml 09/13/17 15:58 Mylanta Oral Suspension - PO Q6H PRN DYSPEPSIA Albuterol Sulfate 2 puff 09/13/17 16:35 Ventolin Hfa Inhaler - IH Q4H PRN ASTHMA Albuterol/Ipratropium 1 amp 09/13/17 16:35 Duoneb - NEB Q4H PRN SHORTNESS OF BREATH Amlodipine Besylate 10 mg 09/14/17 10:00 09/14/17 11:17 Norvasc - PO 10 mg DAILY MAE Administration Aspirin 81 mg 09/14/17 10:00 09/14/17 11:17 Ecotrin - PO 81 mg DAILY MAE Administration Atorvastatin Calcium 20 mg 09/13/17 22:00 09/14/17 22:31 Lipitor - PO 20 mg HS MAE Administration Budesonide/Formoterol Fumarate 1 puff 09/13/17 22:00 09/14/17 22:30 Symbicort 160/4.5mcg - IH 1 puff BID MAE Administration Chlordiazepoxide HCl 25 mg 09/14/17 23:00 09/15/17 05:18 Librium - PO 09/15/17 17:01 25 mg [id number] MAE Administration Chlordiazepoxide HCl 15 mg 09/15/17 23:00 Librium - PO 09/16/17 17:01 [id number] MAE Chlordiazepoxide HCl 25 mg 09/13/17 15:58 Librium - PO 09/16/17 15:57 Q4H PRN WITHDRAWAL(CONT SUBST) Chlordiazepoxide HCl 10 mg 09/16/17 23:00 Librium - PO 09/17/17 17:01 [id number] MAE Eucalyptus/Menthol/Phenol/Sorbitol 1 each 09/13/17 15:58 Cepastat Lozenge - MM Q4H PRN SORE THROAT Gabapentin 300 mg 09/13/17 22:00 09/15/17 05:18 Neurontin - PO 300 mg TID [facility] Administration Guaifenesin 10 ml 09/13/17 15:58 Robitussin Dm - PO Q6H PRN COUGH Hydrochlorothiazide 25 mg 09/14/17 10:00 09/14/17 11:17 Hctz - PO 25 mg DAILY MAE Administration Hydroxyzine Pamoate 50 mg 09/13/17 15:58 Vistaril - PO Q4H PRN AGITATION Ibuprofen 400 mg 09/13/17 15:58 Motrin - PO Q6H PRN PAIN LEVEL 4-6 Loperamide HCl 4 mg 09/13/17 15:58 Imodium - PO Q6H PRN DIARRHEA Magnesium Citrate 300 ml 09/13/17 15:58 Citroma - PO Q48H PRN CONSTIPATION Magnesium Hydroxide 30 ml 09/13/17 15:58 Milk Of Magnesia - PO DAILY PRN CONSTIPATION Melatonin 5 mg 09/13/17 22:00 Melatonin PO HS PRN INSOMNIA Metoprolol Succinate 50 mg 09/14/17 10:00 09/14/17 11:16 Toprol Xl - PO 50 mg DAILY [facility] Administration Nicotine 14 mg 09/14/17 10:00 09/14/17 11:16 Nicoderm Patch - TD Not Given DAILY [facility] Nicotine Polacrilex 2 mg 09/13/17 15:58 Nicorette Gum - BC Q2H PRN NICOTINE REPLACEMENT RX Potassium Chloride 20 meq 09/14/17 13:45 09/14/17 22:31 K-Dur - PO 20 meq BID [facility] Administration Multivit/Folic Acid/Iron 1 tab 09/14/17 10:00 09/14/17 11:15 Vitamins (Sjr) - PO 1 tab DAILY [facility] Administration Pseudoephedrine/Triprolidine 1 combo 09/13/17 15:58 Actifed - PO TID PRN NASAL CONGESTION Quetiapine Fumarate 200 mg 09/14/17 22:00 09/14/17 22:45 Seroquel - PO Not Given HS MAE Sertraline HCl 100 mg 09/14/17 13:00 09/14/17 15:23 Zoloft - PO 100 mg DAILY MAE Administration Thiamine HCl 100 mg 09/13/17 22:00 09/14/17 22:31 Vitamin B1 - PO 100 mg HS MAE Administration Tiotropium Moffit 1 puff 09/14/17 10:00 09/14/17 11:16 Spiriva - IH Not Given DAILY MAE Medication(s) Change(s): none Provider note:: Patient reports tsaking prior to admission: Seroquel 200mg po qhs. Zoloft 100mg poqd. Chart revewed, [facility] seeing by Dr. Mcallister and above orders done yesterday. Patient has been involved in supportive posychotherapy. Mental Status Exam - Mental Status Exam Alert and Oriented to: Person Cognitive Function: Fair Patient Appearance: Unkempt Mood: Anxious Affect: Mood Congruent Patient Behavior: Cooperative Speech Pattern: Delayed Voice Loudness: Mildly Soft/Quiet Thought Process: Circumstantial Thought Disorder: Being Controlled Hallucinations: Denies Suicidal Ideation: Denies Homicidal Ideation: Denies Insight/Judgement: Fair Sleep: Difficulty falling asleep Appetite: Fair Muscle strength/Tone: Mild Hypotonicity Gait/Station: Shuffling Additional Comments: Observation. Continue current treatment plan
--- NOTE | 2017-09-15 10:01 | PN ---
[facility] CIWA - CIWA Score Nausea/Vomitin-Mild Nausea/No Vomiting Muscle Tremors: 4-Moderate,w/Arms Extend Anxiety: 2 Agitation: 2 Paroxysmal Sweats: 1-Minimal Palms Moist Orientation: 0-Oriented Tacttile Disturbances: 1-Very Mild Itch/Numbness Auditory Disturbances: 0-None Visual Disturbances: 0-None Headache: 0-None Present CIWA-Ar Total Score: 11 BHS Progress Note (SOAP) Subjective: tremor sweat trouble sleep at night restlessness irritable Objective: 09/15/17 09:58 Vital Signs Temperature 97.5 F L 09/15/17 06:13 Pulse Rate 73 09/15/17 06:50 Respiratory Rate 20 09/15/17 06:50 Blood Pressure 141/84 09/15/17 06:50 O2 Sat by Pulse Oximetry (%) Laboratory Last Values WBC 2.5 K/mm3 (4.0-10.0) L 09/14/17 07:40 RBC 4.51 M/mm3 (3.60-5.2) 09/14/17 07:40 Hgb 12.8 GM/dL (10.7-15.3) 09/14/17 07:40 Hct 39.0 % (32.4-45.2) 09/14/17 07:40 MCV 86.4 fl (80-96) 09/14/17 07:40 MCH 28.4 pg (25.7-33.7) 09/14/17 07:40 MCHC 32.8 g/dl (32.0-36.0) 09/14/17 07:40 RDW 14.5 % (11.6-15.6) 09/14/17 07:40 Plt Count 252 K/MM3 (134-434) 09/14/17 07:40 MPV 8.0 fl (7.5-11.1) 09/14/17 07:40 Sodium 142 mmol/L (136-145) 09/14/17 07:40 Potassium 3.3 mmol/L (3.5-5.1) L 09/14/17 07:40 Chloride 108 mmol/L (98-107) H 09/14/17 07:40 Carbon Dioxide 30 mmol/L (21-32) 09/14/17 07:40 Anion Gap 4 (8-16) L 09/14/17 07:40 BUN 15 mg/dL (7-18) 09/14/17 07:40 Creatinine 0.8 mg/dL (0.55-1.02) 09/14/17 07:40 Creat Clearance w eGFR > 60 (>60) 09/14/17 07:40 Random Glucose 78 mg/dL (74-106) 09/14/17 07:40 Calcium 8.4 mg/dL (8.5-10.1) L 09/14/17 07:40 Total Bilirubin 0.3 mg/dL (0.2-1.0) D 09/14/17 07:40 AST 18 U/L (15-37) 09/14/17 07:40 ALT 23 U/L (12-78) 09/14/17 07:40 Alkaline Phosphatase 136 U/L (45-117) H 09/14/17 07:40 Total Protein 6.4 g/dl (6.4-8.2) 09/14/17 07:40 Albumin 3.4 g/dl (3.4-5.0) 09/14/17 07:40 Urine Color Ltyellow 09/14/17 08:15 Urine Appearance Clear 09/14/17 08:15 Urine pH 5.0 (5.0-8.0) 09/14/17 08:15 Ur Specific [place] 1.014 (1.001-1.035) 09/14/17 08:15 Urine Protein Negative (NEGATIVE) 09/14/17 08:15 Urine Glucose (UA) Negative (NEGATIVE) 09/14/17 08:15 Urine Ketones Negative (NEGATIVE) 09/14/17 08:15 Urine Blood Negative (NEGATIVE) 09/14/17 08:15 Urine Nitrite Negative (NEGATIVE) 09/14/17 08:15 Urine Bilirubin Negative (<2.0 mg/dL) 09/14/17 08:15 Urine Urobilinogen Negative mg/dL (0.2-1.0) 09/14/17 08:15 Ur Leukocyte Esterase Negative (NEGATIVE) 09/14/17 08:15 RPR Titer Nonreactive (NONREACTIVE) 09/14/17 07:40 lab noted encourage ART adherence Assessment: 09/15/17 10:00 withdrawal sx HIV Plan: continue detox encourage the patient to connect with infectious disease provider regarding ART
[2017-09-15] MEDS: HYDROCHLOROTHIAZIDE 25 MG TABLET (FP) PO SCH (10:08)
[2017-09-15] MEDS: amLODIPine BESYLATE 10 MG TABLET (FP) PO SCH (10:08)
[2017-09-15] MEDS: TIOTROPIUM BROMIDE 18 MCG CAPSULES IH SCH (10:08)
[2017-09-15] MEDS: ASPIRIN COATED 81 MG TABLET.EC PO SCH (10:08)
[2017-09-15] MEDS: PRENATAL VITAMINS W/ FOLIC ACID TABLET (FP) PO SCH (10:08)
[2017-09-15] MEDS: SERTRALINE HCL 50 MG TABLET (FP) PO SCH (10:08)
[2017-09-15] MEDS: NICOTINE 14 MG/24 HOURS TOPICAL PATCH TD SCH (10:09)
[2017-09-15] MEDS: BUDESONIDE/FORMETEROL FUMARATE 160/4.5 mcg INHALER IH SCH ×2 (10:09→23:14)
[2017-09-15] MEDS: POTASSIUM CHLORIDE TABS 20 MEQ TABLET.ER (FP) PO SCH ×2 (10:09→22:36)
[2017-09-15] MEDS: THIAMINE HCL 100 MG TABLET (FP) PO SCH (22:35)
[2017-09-15] MEDS: chlordiazePOXIDE 5 MG CAPSULE PO SCH (22:35)
[2017-09-15] MEDS: ATORVASTATIN CA 20 MG TABLET (FP) PO SCH (22:36)
[2017-09-15] MEDS: QUEtiapine FUMARATE 200 MG TABLET PO SCH (22:36)
[2017-09-16] MEDS: GABAPENTIN 300 MG CAPSULE (FP) PO SCH ×3 (05:49→22:16)
[2017-09-16] MEDS: chlordiazePOXIDE 5 MG CAPSULE PO SCH ×3 (05:49→17:09)
--- NOTE | 2017-09-16 10:23 | PN ---
BHS Progress Note (SOAP) Subjective: feeling better less sweat no tremor social with peers in day room Objective: 09/16/17 10:27 Vital Signs Temperature 98 F 09/16/17 09:22 Pulse Rate 79 09/16/17 09:22 Respiratory Rate 20 09/16/17 09:22 Blood Pressure 138/87 09/16/17 09:22 O2 Sat by Pulse Oximetry (%) Laboratory Last Values WBC 2.5 K/mm3 (4.0-10.0) L 09/14/17 07:40 RBC 4.51 M/mm3 (3.60-5.2) 09/14/17 07:40 Hgb 12.8 GM/dL (10.7-15.3) 09/14/17 07:40 Hct 39.0 % (32.4-45.2) 09/14/17 07:40 MCV 86.4 fl (80-96) 09/14/17 07:40 MCH 28.4 pg (25.7-33.7) 09/14/17 07:40 MCHC 32.8 g/dl (32.0-36.0) 09/14/17 07:40 RDW 14.5 % (11.6-15.6) 09/14/17 07:40 Plt Count 252 K/MM3 (134-434) 09/14/17 07:40 MPV 8.0 fl (7.5-11.1) 09/14/17 07:40 Sodium 142 mmol/L (136-145) 09/14/17 07:40 Potassium 3.3 mmol/L (3.5-5.1) L 09/14/17 07:40 Chloride 108 mmol/L (98-107) H 09/14/17 07:40 Carbon Dioxide 30 mmol/L (21-32) 09/14/17 07:40 Anion Gap 4 (8-16) L 09/14/17 07:40 BUN 15 mg/dL (7-18) 09/14/17 07:40 Creatinine 0.8 mg/dL (0.55-1.02) 09/14/17 07:40 Creat Clearance w eGFR > 60 (>60) 09/14/17 07:40 Random Glucose 78 mg/dL (74-106) 09/14/17 07:40 Calcium 8.4 mg/dL (8.5-10.1) L 09/14/17 07:40 Total Bilirubin 0.3 mg/dL (0.2-1.0) D 09/14/17 07:40 AST 18 U/L (15-37) 09/14/17 07:40 ALT 23 U/L (12-78) 09/14/17 07:40 Alkaline Phosphatase 136 U/L (45-117) H 09/14/17 07:40 Total Protein 6.4 g/dl (6.4-8.2) 09/14/17 07:40 Albumin 3.4 g/dl (3.4-5.0) 09/14/17 07:40 Urine Color Ltyellow 09/14/17 08:15 Urine Appearance Clear 09/14/17 08:15 Urine pH 5.0 (5.0-8.0) 09/14/17 08:15 Ur Specific [place] 1.014 (1.001-1.035) 09/14/17 08:15 Urine Protein Negative (NEGATIVE) 09/14/17 08:15 Urine Glucose (UA) Negative (NEGATIVE) 09/14/17 08:15 Urine Ketones Negative (NEGATIVE) 09/14/17 08:15 Urine Blood Negative (NEGATIVE) 09/14/17 08:15 Urine Nitrite Negative (NEGATIVE) 09/14/17 08:15 Urine Bilirubin Negative (<2.0 mg/dL) 09/14/17 08:15 Urine Urobilinogen Negative mg/dL (0.2-1.0) 09/14/17 08:15 Ur Leukocyte Esterase Negative (NEGATIVE) 09/14/17 08:15 RPR Titer Nonreactive (NONREACTIVE) 09/14/17 07:40 lab noted Assessment: 09/16/17 10:28 mild alcohol withdrawal sx 09/16/17 10:29 hiv Plan: medically supervised detox encourage obtain ART
[2017-09-16] MEDS: TIOTROPIUM BROMIDE 18 MCG CAPSULES IH SCH (10:59)
[2017-09-16] MEDS: BUDESONIDE/FORMETEROL FUMARATE 160/4.5 mcg INHALER IH SCH ×2 (10:59→22:15)
[2017-09-16] MEDS: SERTRALINE HCL 50 MG TABLET (FP) PO SCH (11:00)
[2017-09-16] MEDS: HYDROCHLOROTHIAZIDE 25 MG TABLET (FP) PO SCH (11:00)
[2017-09-16] MEDS: PRENATAL VITAMINS W/ FOLIC ACID TABLET (FP) PO SCH (11:00)
[2017-09-16] MEDS: amLODIPine BESYLATE 10 MG TABLET (FP) PO SCH (11:00)
[2017-09-16] MEDS: ASPIRIN COATED 81 MG TABLET.EC PO SCH (11:00)
[2017-09-16] MEDS: POTASSIUM CHLORIDE TABS 20 MEQ TABLET.ER (FP) PO SCH ×2 (11:00→22:16)
[2017-09-16] MEDS: NICOTINE 14 MG/24 HOURS TOPICAL PATCH TD SCH (11:01)
[2017-09-16] MEDS: ATORVASTATIN CA 20 MG TABLET (FP) PO SCH (22:16)
[2017-09-16] MEDS: QUEtiapine FUMARATE 200 MG TABLET PO SCH (22:16)
[2017-09-16] MEDS: THIAMINE HCL 100 MG TABLET (FP) PO SCH (22:17)
[2017-09-16] MEDS: chlordiazePOXIDE HCL 10 MG CAPSULE PO SCH (22:17)
[2017-09-17] MEDS: GABAPENTIN 300 MG CAPSULE (FP) PO SCH (05:44)
[2017-09-17] MEDS: chlordiazePOXIDE HCL 10 MG CAPSULE PO SCH ×2 (05:44→10:22)
[2017-09-17 06:34] VITALS: BP 150/92; PULSE 69; TEMP 96.1
--- NOTE | 2017-09-17 09:35 | DS ---
[facility] Detox Discharge Summary Admission Date: 09/13/17 Discharge Date: 09/17/17 - History Present History: Alcohol Dependence Additional Comments: 52 years old female admitted 09/13/17 for alcohol withdrawal sx completed alcohol detox regimen tolerated well denies alcohol withdrawal sx alert oriented x 3 no acute distress aftercare jennifer ATC patient determines to maintain sober through recovery process - Physical Exam Results Vital Signs: Vital Signs Temperature 96.1 F L 09/17/17 06:33 Pulse Rate 69 09/17/17 06:33 Respiratory Rate 18 09/17/17 06:33 Blood Pressure 150/92 09/17/17 06:33 O2 Sat by Pulse Oximetry (%) Pertinent Admission Physical Exam Findings: alcohol withdrawal sx Vital Signs Temperature 96.1 F L 09/17/17 06:33 Pulse Rate 69 09/17/17 06:33 Respiratory Rate 18 09/17/17 06:33 Blood Pressure 150/92 09/17/17 06:33 O2 Sat by Pulse Oximetry (%) Laboratory Last Values WBC 2.5 K/mm3 (4.0-10.0) L 09/14/17 07:40 RBC 4.51 M/mm3 (3.60-5.2) 09/14/17 07:40 Hgb 12.8 GM/dL (10.7-15.3) 09/14/17 07:40 Hct 39.0 % (32.4-45.2) 09/14/17 07:40 MCV 86.4 fl (80-96) 09/14/17 07:40 MCH 28.4 pg (25.7-33.7) 09/14/17 07:40 MCHC 32.8 g/dl (32.0-36.0) 09/14/17 07:40 RDW 14.5 % (11.6-15.6) 09/14/17 07:40 Plt Count 252 K/MM3 (134-434) 09/14/17 07:40 MPV 8.0 fl (7.5-11.1) 09/14/17 07:40 Sodium 142 mmol/L (136-145) 09/14/17 07:40 Potassium 4.1 mmol/L (3.5-5.1) 09/16/17 07:30 Chloride 108 mmol/L (98-107) H 09/14/17 07:40 Carbon Dioxide 30 mmol/L (21-32) 09/14/17 07:40 Anion Gap 4 (8-16) L 09/14/17 07:40 BUN 15 mg/dL (7-18) 09/14/17 07:40 Creatinine 0.8 mg/dL (0.55-1.02) 09/14/17 07:40 Creat Clearance w eGFR > 60 (>60) 09/14/17 07:40 Random Glucose 78 mg/dL (74-106) 09/14/17 07:40 Calcium 8.4 mg/dL (8.5-10.1) L 09/14/17 07:40 Total Bilirubin 0.3 mg/dL (0.2-1.0) D 09/14/17 07:40 AST 18 U/L (15-37) 09/14/17 07:40 ALT 23 U/L (12-78) 09/14/17 07:40 Alkaline Phosphatase 136 U/L (45-117) H 09/14/17 07:40 Total Protein 6.4 g/dl (6.4-8.2) 09/14/17 07:40 Albumin 3.4 g/dl (3.4-5.0) 09/14/17 07:40 Urine Color Ltyellow 09/14/17 08:15 Urine Appearance Clear 09/14/17 08:15 Urine pH 5.0 (5.0-8.0) 09/14/17 08:15 Ur Specific [place] 1.014 (1.001-1.035) 09/14/17 08:15 Urine Protein Negative (NEGATIVE) 09/14/17 08:15 Urine Glucose (UA) Negative (NEGATIVE) 09/14/17 08:15 Urine Ketones Negative (NEGATIVE) 09/14/17 08:15 Urine Blood Negative (NEGATIVE) 09/14/17 08:15 Urine Nitrite Negative (NEGATIVE) 09/14/17 08:15 Urine Bilirubin Negative (<2.0 mg/dL) 09/14/17 08:15 Urine Urobilinogen Negative mg/dL (0.2-1.0) 09/14/17 08:15 Ur Leukocyte Esterase Negative (NEGATIVE) 09/14/17 08:15 RPR Titer Nonreactive (NONREACTIVE) 09/14/17 07:40 lab noted - Treatment Hospital Course: Detox Protocol Followed, Detoxed Safely, Responded well, Discharged Condition Good, Rehab Referral Accepted Patient has Accepted a Rehab Referral to: kennedy ATC - Medication Discharge Medications: Ambulatory Orders Tiotropium [place] [Spiriva] 18 mcg IH DAILY 07/01/15 Multivitamin [One Daily] 1 each PO DAILY 01/30/17 Elviteg/Cob/Emtri/Tenof Alafen [Genvoya Tablet] 1 each PO DAILY 04/25/17 Quetiapine Fumarate [Seroquel -] 200 mg PO HS #30 tab 07/30/17 Aspirin Coated [Ecotrin -] 81 mg PO DAILY #30 tablet.ec 08/01/17 Mometasone/Formoterol [Dulera 200 Mcg/5 Mcg Inhaler] 2 inh IH BID #1 hfa.aer.ad 08/01/17 Quetiapine Fumarate [Seroquel -] 200 mg PO HS #30 tablet 09/14/17 Sertraline HCl [Zoloft] 100 mg PO DAILY #30 tablet 09/14/17 Albuterol Sulfate Inhaler - [Ventolin HFA Inhaler -] 2 inh PO Q4H PRN #1 inh 08/29 Amlodipine Besylate [Norvasc -] 10 mg PO DAILY #30 tablet 09/16/17 Atorvastatin Ca [Lipitor] 20 mg PO HS #30 tablet 09/16/17 Budesonide/Formeterol Fumarate [SYMBICORT 160/4.5mcg -] 1 puff IH BID #1 inhaler 09/16/17 Gabapentin [Neurontin -] 300 mg PO TID #90 cap 09/16/17 Hydrochlorothiazide [Hctz -] 25 mg PO DAILY #30 tablet 09/16/17 Metoprolol Succinate [Toprol XL -] 50 mg PO DAILY #30 tab.sr.24h 09/16/17 Tiotropium [place] [Spiriva] 1 puff IH DAILY #1 cap 09/16/17 - Diagnosis (1) Alcohol dependence with withdrawal, uncomplicated Status: Acute (2) AIDS (acquired immune deficiency syndrome) Status: Chronic (3) Asthma Status: Chronic Qualifiers: Asthma severity: mild Asthma persistence: intermittent Asthma complication type: uncomplicated Qualified Code(s): J45.20 - Mild intermittent asthma, uncomplicated (4) COPD (chronic obstructive pulmonary disease) Status: Chronic Qualifiers: COPD type: unspecified COPD Qualified Code(s): J44.9 - Chronic obstructive pulmonary disease, unspecified (5) GERD (gastroesophageal reflux disease) Status: Chronic Qualifiers: Esophagitis presence: esophagitis presence not specified Qualified Code(s) : K21.9 - Gastro-esophageal reflux disease without esophagitis (6) Nicotine dependence Status: Chronic Qualifiers: Nicotine product type: cigarettes Substance use status: in withdrawal Qualified Code(s): F17.213 - Nicotine dependence, cigarettes, with withdrawal - AMA Did Patient Leave Against Medical Advice: No
[2017-09-17] MEDS: PRENATAL VITAMINS W/ FOLIC ACID TABLET (FP) PO SCH (10:23)
[2017-09-17] MEDS: POTASSIUM CHLORIDE TABS 20 MEQ TABLET.ER (FP) PO SCH (10:23)
[2017-09-17] MEDS: TIOTROPIUM BROMIDE 18 MCG CAPSULES IH SCH (10:23)
[2017-09-17] MEDS: ASPIRIN COATED 81 MG TABLET.EC PO SCH (10:23)
[2017-09-17] MEDS: amLODIPine BESYLATE 10 MG TABLET (FP) PO SCH (10:23)
[2017-09-17] MEDS: NICOTINE 14 MG/24 HOURS TOPICAL PATCH TD SCH (10:23)
[2017-09-17] MEDS: SERTRALINE HCL 50 MG TABLET (FP) PO SCH (10:23)
[2017-09-17] MEDS: HYDROCHLOROTHIAZIDE 25 MG TABLET (FP) PO SCH (10:23)
[2017-09-17] MEDS: BUDESONIDE/FORMETEROL FUMARATE 160/4.5 mcg INHALER IH SCH (10:23)
== END 2017-09-17 10:47 | disposition home or self-care (01) | DRG 774 ==
LOC: YASAS 10:43 → Y6N 18:04
PROVIDERS: ADMIT Surgery; ATTEND Surgery
PROC: HZ2ZZZZ Detoxification Services for Substance Abuse Treatment (ICD-10-PCS; principal; 2017-09-13)
DX: F10.230 Alcohol dependence with withdrawal, uncomplicated (principal); F14.20 Cocaine dependence, uncomplicated; F17.213 Nicotine dependence, cigarettes, with withdrawal; F19.282 Other psychoactive substance dependence with psychoactive substance-induced sleep disorder; B20 Human immunodeficiency virus [HIV] disease; I10 Essential (primary) hypertension; J45.20 Mild intermittent asthma, uncomplicated; J44.9 Chronic obstructive pulmonary disease, unspecified; K21.9 Gastro-esophageal reflux disease without esophagitis; E78.00 Pure hypercholesterolemia, unspecified; Z86.19 Personal history of other infectious and parasitic diseases; Z91.5 Personal history of self-harm; Z88.8 Allergy status to other drugs, medicaments and biological substances; Z91.018 Allergy to other foods
CPT/HCPCS: 36415; 80053; 81003; 84132; 85027; 86593; 93005; 93010

== ENCOUNTER 2017-10-25 08:37 | Inpatient (IN) | payer OTHER ==
[2017-10-25 09:17] VITALS: BMI 26.3
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
[2017-10-25] MEDS ORDERED: guaiFENesin/D-METHORPHAN HB 10 ML UNIT-DOSE CUPS PO PRN (10:15)
[2017-10-25] MEDS ORDERED: MENTHOL/PHENOL 1 EACH UD MM PRN (10:15)
[2017-10-25] MEDS ORDERED: LOPERAMIDE HCL 2 MG CAPSULE PO PRN (10:15)
[2017-10-25] MEDS ORDERED: chlordiazePOXIDE HCL 25 MG CAPSULE PO PRN (10:15)
[2017-10-25] MEDS ORDERED: hydrOXYzine PAMOATE 25 MG CAPSULE (FP) PO PRN (10:15)
[2017-10-25] MEDS ORDERED: P-EPHED 60MG/TRIPROLIDI 2.5MG TABLET PO PRN (10:15)
[2017-10-25] MEDS ORDERED: ACETAMINOPHEN 325 MG TABLET (FP) PO PRN (10:15)
[2017-10-25] MEDS ORDERED: MAGNESIUM CITRATE 300 ML BOTTLE PO PRN (10:15)
[2017-10-25] MEDS ORDERED: MAGNESIUM HYDROX 2400MG/30ML ORAL SUSPENSION 30 ML CUP PO PRN (10:15)
[2017-10-25] MEDS ORDERED: MAG HYDROX/AL HYDROX/SIMETH 30 ML UNIT-DOSE CUP PO PRN (10:15)
[2017-10-25] MEDS ORDERED: chlordiazePOXIDE HCL 25 MG CAPSULE PO ONE (12:00)
[2017-10-25] MEDS ORDERED: CALAMINE 8% TOPICAL LOTION 177 ML BOTTLE TP PRN (12:14)
[2017-10-25] MEDS: amLODIPine BESYLATE 10 MG TABLET (FP) PO SCH (12:40)
[2017-10-25] MEDS: BUDESONIDE/FORMETEROL FUMARATE 160/4.5 mcg INHALER IH SCH ×2 (12:40→22:15)
[2017-10-25] MEDS: HYDROCHLOROTHIAZIDE 25 MG TABLET (FP) PO SCH (12:40)
[2017-10-25] MEDS: predniSONE 20 MG TABLET (UD) PO SCH (12:40)
[2017-10-25] MEDS: ELVITEG/COB/EMTRI/TENOF (GENVOYA) TABLET (NF) PO SCH (14:13)
--- NOTE | 2017-10-25 14:43 | EKG ---
Test Reason : Blood Pressure : / mmHG Vent. Rate : 082 BPM Atrial Rate : 082 BPM P-R Int : 228 ms QRS Dur : 092 ms QT Int : 404 ms P-R-T Axes : 072 036 080 degrees QTc Int : 472 ms SINUS RHYTHM WITH 1ST DEGREE A-V BLOCK LEFT ATRIAL ENLARGEMENT ANTERIOR INFARCT (CITED ON OR BEFORE 25-APR-2017) ABNORMAL ECG WHEN COMPARED WITH ECG OF 13-SEP-2017 18:50, QUESTIONABLE CHANGE IN INITIAL FORCES OF ANTEROSEPTAL LEADS Confirmed by Apollo Stoddard ([id number]) on 10/25/2017 2:42:49 PM Referred By: Jean Marie Peterson Confirmed By:Apollo Stoddard
[2017-10-25] MEDS: ALBUTEROL SO4 8 GM HFA INHALER IH PRN (15:04)
[2017-10-25] MEDS: TIOTROPIUM BROMIDE 18 MCG CAPSULES IH SCH (15:06)
[2017-10-25] MEDS: chlordiazePOXIDE HCL 25 MG CAPSULE PO SCH ×2 (18:02→22:15)
[2017-10-25] MEDS ORDERED: MELATONIN 5 MG TABLETS PO PRN (22:00)
[2017-10-25 22:09] LABS: URINE APPEARANCE SLCLOUDY; URINE BILIRUBIN NEGATIVE (<2.0 mg/dL); URINE COLOR YELLOW; URINE GLUCOSE (UA) NEGATIVE (NEGATIVE); URINE KETONE NEGATIVE (NEGATIVE); URINE LEUK ESTERASE TRACE (NEGATIVE); URINE NITRITE NEGATIVE (NEGATIVE); URINE UROBILINOGEN NEGATIVE mg/dL (0.2-1.0)
[2017-10-25 22:14] LABS: URINE PROTEIN 1+ (NEGATIVE)
[2017-10-25 22:15] LABS: EPI CELLS RARE /HPF (FEW); URINE HYALINE CAST 3 /lpf; URINE MUCUS RARE
[2017-10-25] MEDS: THIAMINE HCL 100 MG TABLET (FP) PO SCH (22:15)
[2017-10-25] MEDS: ATORVASTATIN CA 20 MG TABLET (FP) PO SCH (22:16)
[2017-10-26] MEDS: chlordiazePOXIDE HCL 25 MG CAPSULE PO SCH ×4 (06:03→22:19)
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
[2017-10-26] MEDS: NICOTINE POLACRILEX 4 MG GUM BUC PRN ×2 (08:48→17:20)
[2017-10-26 10:12] LABS: HEMATOCRIT 37.4 % (32.4-45.2); HEMOGLOBIN 12.6 GM/dL (10.7-15.3); MCH 28.9 pg (25.7-33.7); MCHC 33.6 g/dl (32.0-36.0); MEAN PLT VOLUME 8.3 fl (7.5-11.1); PLATELET COUNT 233 K/MM3 (134-434); RBC 4.34 M/mm3 (3.60-5.2); RDW 14.8 % (11.6-15.6)
[2017-10-26] MEDS: BUDESONIDE/FORMETEROL FUMARATE 160/4.5 mcg INHALER IH SCH ×2 (10:17→22:19)
[2017-10-26] MEDS: amLODIPine BESYLATE 10 MG TABLET (FP) PO SCH (10:18)
[2017-10-26] MEDS: ASPIRIN COATED 81 MG TABLET.EC PO SCH (10:18)
[2017-10-26] MEDS: predniSONE 20 MG TABLET (UD) PO SCH (10:18)
[2017-10-26] MEDS: HYDROCHLOROTHIAZIDE 25 MG TABLET (FP) PO SCH (10:18)
[2017-10-26] MEDS: ELVITEG/COB/EMTRI/TENOF (GENVOYA) TABLET (NF) PO SCH (10:18)
[2017-10-26] MEDS: PRENATAL VITAMINS W/ FOLIC ACID TABLET (FP) PO SCH (10:18)
[2017-10-26] MEDS: TIOTROPIUM BROMIDE 18 MCG CAPSULES IH SCH (10:19)
[2017-10-26 10:28] LABS: CHLORIDE 106 mmol/L (98-107); POTASSIUM 3.3 mmol/L (3.5-5.1); SODIUM 144 mmol/L (136-145)
[2017-10-26 10:36] LABS: ALBUMIN 3.5 g/dl (3.4-5.0); ALK PHOS 143 U/L (45-117); ANION GAP 7 (8-16); BILIRUBIN,TOTAL 0.3 mg/dL (0.2-1.0); BLOOD UREA NITROGEN 18 mg/dL (7-18); CALCIUM 9.2 mg/dL (8.5-10.1); CO2 31 mmol/L (21-32); CREATININE 0.9 mg/dL (0.55-1.02); GLUCOSE,RANDOM 85 mg/dL (74-106); SGOT/AST 17 U/L (15-37); SGPT/ALT 20 U/L (12-78); TOT PROT 6.9 g/dl (6.4-8.2)
[2017-10-26] MEDS: SERTRALINE HCL 50 MG TABLET (FP) PO SCH (12:02)
--- NOTE | 2017-10-26 12:47 | PN ---
[facility] CIWA - CIWA Score Nausea/Vomitin-Mild Nausea/No Vomiting Muscle Tremors: 4-Moderate,w/Arms Extend Anxiety: 3 Agitation: 3 Paroxysmal Sweats: 1-Minimal Palms Moist Orientation: 0-Oriented Tacttile Disturbances: 2-Mild Itch/Numbness/Burn Auditory Disturbances: 0-None Visual Disturbances: 0-None Headache: 0-None Present CIWA-Ar Total Score: 14 BHS Progress Note (SOAP) Subjective: sweat tremor restlessness anxiety trouble sleep at night Objective: 10/26/17 12:48 Vital Signs Temperature 97.9 F 10/26/17 09:23 Pulse Rate 73 10/26/17 09:23 Respiratory Rate 18 10/26/17 09:23 Blood Pressure 157/99 10/26/17 09:23 O2 Sat by Pulse Oximetry (%) Laboratory Last Values WBC 4.0 K/mm3 (4.0-10.0) 10/26/17 07:20 RBC 4.34 M/mm3 (3.60-5.2) 10/26/17 07:20 Hgb 12.6 GM/dL (10.7-15.3) 10/26/17 07:20 Hct 37.4 % (32.4-45.2) 10/26/17 07:20 MCV 86.0 fl (80-96) 10/26/17 07:20 MCH 28.9 pg (25.7-33.7) 10/26/17 07:20 MCHC 33.6 g/dl (32.0-36.0) 10/26/17 07:20 RDW 14.8 % (11.6-15.6) 10/26/17 07:20 Plt Count 233 K/MM3 (134-434) 10/26/17 07:20 MPV 8.3 fl (7.5-11.1) 10/26/17 07:20 Sodium 144 mmol/L (136-145) 10/26/17 07:20 Potassium 3.3 mmol/L (3.5-5.1) L 10/26/17 07:20 Chloride 106 mmol/L (98-107) 10/26/17 07:20 Carbon Dioxide 31 mmol/L (21-32) 10/26/17 07:20 Anion Gap 7 (8-16) L 10/26/17 07:20 BUN 18 mg/dL (7-18) 10/26/17 07:20 Creatinine 0.9 mg/dL (0.55-1.02) 10/26/17 07:20 Creat Clearance w eGFR > 60 (>60) 10/26/17 07:20 Random Glucose 85 mg/dL (74-106) 10/26/17 07:20 Calcium 9.2 mg/dL (8.5-10.1) 10/26/17 07:20 Total Bilirubin 0.3 mg/dL (0.2-1.0) 10/26/17 07:20 AST 17 U/L (15-37) 10/26/17 07:20 ALT 20 U/L (12-78) 10/26/17 07:20 Alkaline Phosphatase 143 U/L (45-117) H 10/26/17 07:20 Total Protein 6.9 g/dl (6.4-8.2) 10/26/17 07:20 Albumin 3.5 g/dl (3.4-5.0) 10/26/17 07:20 Urine Color Yellow 10/25/17 14:59 Urine Appearance Slcloudy 10/25/17 14:59 Urine pH 5.0 (5.0-8.0) 10/25/17 14:59 Ur Specific [place] 1.012 (1.001-1.035) 10/25/17 14:59 Urine Protein 1+ (NEGATIVE) H 10/25/17 14:59 Urine Glucose (UA) Negative (NEGATIVE) 10/25/17 14:59 Urine Ketones Negative (NEGATIVE) 10/25/17 14:59 Urine Blood 1+ (NEGATIVE) H 10/25/17 14:59 Urine Nitrite Negative (NEGATIVE) 10/25/17 14:59 Urine Bilirubin Negative (<2.0 mg/dL) 10/25/17 14:59 Urine Urobilinogen Negative mg/dL (0.2-1.0) 10/25/17 14:59 Ur Leukocyte Esterase Trace (NEGATIVE) 10/25/17 14:59 Urine WBC (Auto) 10 /hpf (3-5) 10/25/17 14:59 Urine RBC (Auto) <1 /hpf (0-3) 10/25/17 14:59 Ur Epithelial Cells Rare /HPF (FEW) 10/25/17 14:59 Hyaline Casts 3 /lpf 10/25/17 14:59 Urine Mucus Rare 10/25/17 14:59 RPR Titer Nonreactive (NONREACTIVE) 10/26/17 07:20 lab noted K+ supplement Assessment: 10/26/17 12:50 withdrawal sx 10/26/17 12:50 repeat K+ 10/28/17 Plan: continue detox K+ supplement
[2017-10-26] MEDS: POTASSIUM CHLORIDE TABS 20 MEQ TABLET.ER (FP) PO SCH (14:09)
[2017-10-26] MEDS: ALBUTEROL SO4 8 GM HFA INHALER IH PRN (17:20)
[2017-10-26] MEDS ORDERED: QUEtiapine FUMARATE 200 MG TABLET PO SCH (22:00)
[2017-10-26] MEDS: THIAMINE HCL 100 MG TABLET (FP) PO SCH (22:18)
[2017-10-26] MEDS: QUEtiapine FUMARATE 200 MG TABLET PO SCH (22:19)
[2017-10-26] MEDS: ATORVASTATIN CA 20 MG TABLET (FP) PO SCH (22:19)
[2017-10-27] MEDS: chlordiazePOXIDE HCL 25 MG CAPSULE PO SCH ×2 (07:51→10:30)
[2017-10-27] MEDS: ELVITEG/COB/EMTRI/TENOF (GENVOYA) TABLET (NF) PO SCH (08:54)
[2017-10-27] MEDS: NICOTINE POLACRILEX 4 MG GUM BUC PRN (08:54)
[2017-10-27] MEDS: BUDESONIDE/FORMETEROL FUMARATE 160/4.5 mcg INHALER IH SCH ×2 (10:29→23:15)
[2017-10-27] MEDS: POTASSIUM CHLORIDE TABS 20 MEQ TABLET.ER (FP) PO SCH (10:29)
[2017-10-27] MEDS: amLODIPine BESYLATE 10 MG TABLET (FP) PO SCH (10:30)
[2017-10-27] MEDS: SERTRALINE HCL 50 MG TABLET (FP) PO SCH (10:30)
[2017-10-27] MEDS: predniSONE 20 MG TABLET (UD) PO SCH (10:30)
[2017-10-27] MEDS: PRENATAL VITAMINS W/ FOLIC ACID TABLET (FP) PO SCH (10:30)
[2017-10-27] MEDS: HYDROCHLOROTHIAZIDE 25 MG TABLET (FP) PO SCH (10:30)
[2017-10-27] MEDS: ASPIRIN COATED 81 MG TABLET.EC PO SCH (10:30)
--- NOTE | 2017-10-27 11:05 | PN ---
S CIWA - CIWA Score Nausea/Vomitin-Mild Nausea/No Vomiting Muscle Tremors: 4-Moderate,w/Arms Extend Anxiety: 3 Agitation: 3 Paroxysmal Sweats: 1-Minimal Palms Moist Orientation: 0-Oriented Tacttile Disturbances: 1-Very Mild Itch/Numbness Auditory Disturbances: 0-None Visual Disturbances: 0-None Headache: 0-None Present CIWA-Ar Total Score: 13 BHS Progress Note (SOAP) Subjective: sweat tremor low energy restlessness irritable trouble sleep at night Objective: 10/27/17 11:08 Vital Signs Temperature 98.2 F 10/27/17 10:12 Pulse Rate 77 10/27/17 10:12 Respiratory Rate 20 10/27/17 10:12 Blood Pressure 150/98 10/27/17 10:12 O2 Sat by Pulse Oximetry (%) Laboratory Last Values WBC 4.0 K/mm3 (4.0-10.0) 10/26/17 07:20 RBC 4.34 M/mm3 (3.60-5.2) 10/26/17 07:20 Hgb 12.6 GM/dL (10.7-15.3) 10/26/17 07:20 Hct 37.4 % (32.4-45.2) 10/26/17 07:20 MCV 86.0 fl (80-96) 10/26/17 07:20 MCH 28.9 pg (25.7-33.7) 10/26/17 07:20 MCHC 33.6 g/dl (32.0-36.0) 10/26/17 07:20 RDW 14.8 % (11.6-15.6) 10/26/17 07:20 Plt Count 233 K/MM3 (134-434) 10/26/17 07:20 MPV 8.3 fl (7.5-11.1) 10/26/17 07:20 Sodium 144 mmol/L (136-145) 10/26/17 07:20 Potassium 3.3 mmol/L (3.5-5.1) L 10/26/17 07:20 Chloride 106 mmol/L (98-107) 10/26/17 07:20 Carbon Dioxide 31 mmol/L (21-32) 10/26/17 07:20 Anion Gap 7 (8-16) L 10/26/17 07:20 BUN 18 mg/dL (7-18) 10/26/17 07:20 Creatinine 0.9 mg/dL (0.55-1.02) 10/26/17 07:20 Creat Clearance w eGFR > 60 (>60) 10/26/17 07:20 Random Glucose 85 mg/dL (74-106) 10/26/17 07:20 Calcium 9.2 mg/dL (8.5-10.1) 10/26/17 07:20 Total Bilirubin 0.3 mg/dL (0.2-1.0) 10/26/17 07:20 AST 17 U/L (15-37) 10/26/17 07:20 ALT 20 U/L (12-78) 10/26/17 07:20 Alkaline Phosphatase 143 U/L (45-117) H 10/26/17 07:20 Total Protein 6.9 g/dl (6.4-8.2) 10/26/17 07:20 Albumin 3.5 g/dl (3.4-5.0) 10/26/17 07:20 Urine Color Yellow 10/25/17 14:59 Urine Appearance Slcloudy 10/25/17 14:59 Urine pH 5.0 (5.0-8.0) 10/25/17 14:59 Ur Specific [place] 1.012 (1.001-1.035) 10/25/17 14:59 Urine Protein 1+ (NEGATIVE) H 10/25/17 14:59 Urine Glucose (UA) Negative (NEGATIVE) 10/25/17 14:59 Urine Ketones Negative (NEGATIVE) 10/25/17 14:59 Urine Blood 1+ (NEGATIVE) H 10/25/17 14:59 Urine Nitrite Negative (NEGATIVE) 10/25/17 14:59 Urine Bilirubin Negative (<2.0 mg/dL) 10/25/17 14:59 Urine Urobilinogen Negative mg/dL (0.2-1.0) 10/25/17 14:59 Ur Leukocyte Esterase Trace (NEGATIVE) 10/25/17 14:59 Urine WBC (Auto) 10 /hpf (3-5) 10/25/17 14:59 Urine RBC (Auto) <1 /hpf (0-3) 10/25/17 14:59 Ur Epithelial Cells Rare /HPF (FEW) 10/25/17 14:59 Hyaline Casts 3 /lpf 10/25/17 14:59 Urine Mucus Rare 10/25/17 14:59 RPR Titer Nonreactive (NONREACTIVE) 10/26/17 07:20 lab noted continue K+ supplement repeat K+ 10/28/17 Assessment: 10/27/17 11:23 withdrawal sx Plan: continue detox
[2017-10-27] MEDS: TIOTROPIUM BROMIDE 18 MCG CAPSULES IH SCH (11:44)
[2017-10-27] MEDS: chlordiazePOXIDE 5 MG CAPSULE PO SCH ×2 (17:57→22:31)
[2017-10-27] MEDS: QUEtiapine FUMARATE 200 MG TABLET PO SCH (22:31)
[2017-10-27] MEDS: ATORVASTATIN CA 20 MG TABLET (FP) PO SCH (22:31)
[2017-10-27] MEDS: THIAMINE HCL 100 MG TABLET (FP) PO SCH (22:31)
[2017-10-28] MEDS: chlordiazePOXIDE 5 MG CAPSULE PO SCH ×2 (05:46→11:15)
[2017-10-28] MEDS: METOPROLOL SUCCINATE 50 MG, METOPROLOL SUCCINATE 25 MG PO SCH (10:28)
[2017-10-28] MEDS: predniSONE 20 MG TABLET (UD) PO SCH (10:28)
[2017-10-28] MEDS: SERTRALINE HCL 50 MG TABLET (FP) PO SCH (10:28)
[2017-10-28] MEDS: ASPIRIN COATED 81 MG TABLET.EC PO SCH (10:28)
[2017-10-28] MEDS: HYDROCHLOROTHIAZIDE 25 MG TABLET (FP) PO SCH (10:28)
[2017-10-28] MEDS: amLODIPine BESYLATE 10 MG TABLET (FP) PO SCH (10:28)
[2017-10-28] MEDS: PRENATAL VITAMINS W/ FOLIC ACID TABLET (FP) PO SCH (10:28)
[2017-10-28] MEDS: POTASSIUM CHLORIDE TABS 20 MEQ TABLET.ER (FP) PO SCH (10:29)
[2017-10-28] MEDS: BUDESONIDE/FORMETEROL FUMARATE 160/4.5 mcg INHALER IH SCH ×2 (10:29→22:11)
[2017-10-28] MEDS: ELVITEG/COB/EMTRI/TENOF (GENVOYA) TABLET (NF) PO SCH (10:29)
[2017-10-28] MEDS: NICOTINE POLACRILEX 4 MG GUM BUC PRN ×3 (10:38→20:55)
[2017-10-28] MEDS: TIOTROPIUM BROMIDE 18 MCG CAPSULES IH SCH (11:00)
--- NOTE | 2017-10-28 11:16 | PN ---
[facility] Progress Note (SOAP) Subjective: feeling better no tremor less sweat no gi distress social with peers in day room discuss aftercare Objective: 10/28/17 11:14 Vital Signs Temperature 97.7 F 10/28/17 09:17 Pulse Rate 89 10/28/17 09:17 Respiratory Rate 16 10/28/17 09:17 Blood Pressure 137/86 10/28/17 09:17 O2 Sat by Pulse Oximetry (%) Laboratory Last Values WBC 4.0 K/mm3 (4.0-10.0) 10/26/17 07:20 RBC 4.34 M/mm3 (3.60-5.2) 10/26/17 07:20 Hgb 12.6 GM/dL (10.7-15.3) 10/26/17 07:20 Hct 37.4 % (32.4-45.2) 10/26/17 07:20 MCV 86.0 fl (80-96) 10/26/17 07:20 MCH 28.9 pg (25.7-33.7) 10/26/17 07:20 MCHC 33.6 g/dl (32.0-36.0) 10/26/17 07:20 RDW 14.8 % (11.6-15.6) 10/26/17 07:20 Plt Count 233 K/MM3 (134-434) 10/26/17 07:20 MPV 8.3 fl (7.5-11.1) 10/26/17 07:20 Sodium 144 mmol/L (136-145) 10/26/17 07:20 Potassium 3.3 mmol/L (3.5-5.1) L 10/26/17 07:20 Chloride 106 mmol/L (98-107) 10/26/17 07:20 Carbon Dioxide 31 mmol/L (21-32) 10/26/17 07:20 Anion Gap 7 (8-16) L 10/26/17 07:20 BUN 18 mg/dL (7-18) 10/26/17 07:20 Creatinine 0.9 mg/dL (0.55-1.02) 10/26/17 07:20 Creat Clearance w eGFR > 60 (>60) 10/26/17 07:20 Random Glucose 85 mg/dL (74-106) 10/26/17 07:20 Calcium 9.2 mg/dL (8.5-10.1) 10/26/17 07:20 Total Bilirubin 0.3 mg/dL (0.2-1.0) 10/26/17 07:20 AST 17 U/L (15-37) 10/26/17 07:20 ALT 20 U/L (12-78) 10/26/17 07:20 Alkaline Phosphatase 143 U/L (45-117) H 10/26/17 07:20 Total Protein 6.9 g/dl (6.4-8.2) 10/26/17 07:20 Albumin 3.5 g/dl (3.4-5.0) 10/26/17 07:20 Urine Color Yellow 10/25/17 14:59 Urine Appearance Slcloudy 10/25/17 14:59 Urine pH 5.0 (5.0-8.0) 10/25/17 14:59 Ur Specific [place] 1.012 (1.001-1.035) 10/25/17 14:59 Urine Protein 1+ (NEGATIVE) H 10/25/17 14:59 Urine Glucose (UA) Negative (NEGATIVE) 10/25/17 14:59 Urine Ketones Negative (NEGATIVE) 10/25/17 14:59 Urine Blood 1+ (NEGATIVE) H 10/25/17 14:59 Urine Nitrite Negative (NEGATIVE) 10/25/17 14:59 Urine Bilirubin Negative (<2.0 mg/dL) 10/25/17 14:59 Urine Urobilinogen Negative mg/dL (0.2-1.0) 10/25/17 14:59 Ur Leukocyte Esterase Trace (NEGATIVE) 10/25/17 14:59 Urine WBC (Auto) 10 /hpf (3-5) 10/25/17 14:59 Urine RBC (Auto) <1 /hpf (0-3) 10/25/17 14:59 Ur Epithelial Cells Rare /HPF (FEW) 10/25/17 14:59 Hyaline Casts 3 /lpf 10/25/17 14:59 Urine Mucus Rare 10/25/17 14:59 RPR Titer Nonreactive (NONREACTIVE) 10/26/17 07:20 lab noted K+ repeat pending 10/28/17 11:15 Assessment: 10/28/17 11:15 mild withdrawal sx Plan: medically supervised detox
[2017-10-28] MEDS: chlordiazePOXIDE HCL 10 MG CAPSULE PO SCH ×2 (17:15→22:11)
[2017-10-28] MEDS: QUEtiapine FUMARATE 200 MG TABLET PO SCH (20:54)
[2017-10-28] MEDS: ATORVASTATIN CA 20 MG TABLET (FP) PO SCH (22:11)
[2017-10-28] MEDS: THIAMINE HCL 100 MG TABLET (FP) PO SCH (22:11)
[2017-10-29] MEDS: chlordiazePOXIDE HCL 10 MG CAPSULE PO SCH ×2 (05:45→10:24)
[2017-10-29] MEDS: NICOTINE POLACRILEX 4 MG GUM BUC PRN (05:48)
--- NOTE | 2017-10-29 08:40 | DS ---
[facility] Detox Discharge Summary Admission Date: 10/25/17 Discharge Date: 10/29/17 - History Present History: Alcohol Dependence Additional Comments: 52 years old female admitted on 10/25/17 for alcohol withdrawal sx completed alcohol detox regimen tolerated well denies alcohol withdrawal sx alert oriented x 3 no acute distress aftercare [facility] - Physical Exam Results Vital Signs: Vital Signs Temperature 97.3 F L 10/29/17 07:52 Pulse Rate 71 10/29/17 07:52 Respiratory Rate 18 10/29/17 07:52 Blood Pressure 133/80 10/29/17 07:52 O2 Sat by Pulse Oximetry (%) Pertinent Admission Physical Exam Findings: alcohol withdrawal sx Vital Signs Temperature 97.3 F L 10/29/17 07:52 Pulse Rate 71 10/29/17 07:52 Respiratory Rate 18 10/29/17 07:52 Blood Pressure 133/80 10/29/17 07:52 O2 Sat by Pulse Oximetry (%) Laboratory Last Values WBC 4.0 K/mm3 (4.0-10.0) 10/26/17 07:20 RBC 4.34 M/mm3 (3.60-5.2) 10/26/17 07:20 Hgb 12.6 GM/dL (10.7-15.3) 10/26/17 07:20 Hct 37.4 % (32.4-45.2) 10/26/17 07:20 MCV 86.0 fl (80-96) 10/26/17 07:20 MCH 28.9 pg (25.7-33.7) 10/26/17 07:20 MCHC 33.6 g/dl (32.0-36.0) 10/26/17 07:20 RDW 14.8 % (11.6-15.6) 10/26/17 07:20 Plt Count 233 K/MM3 (134-434) 10/26/17 07:20 MPV 8.3 fl (7.5-11.1) 10/26/17 07:20 Sodium 144 mmol/L (136-145) 10/26/17 07:20 Potassium 3.8 mmol/L (3.5-5.1) 10/28/17 07:00 Chloride 106 mmol/L (98-107) 10/26/17 07:20 Carbon Dioxide 31 mmol/L (21-32) 10/26/17 07:20 Anion Gap 7 (8-16) L 10/26/17 07:20 BUN 18 mg/dL (7-18) 10/26/17 07:20 Creatinine 0.9 mg/dL (0.55-1.02) 10/26/17 07:20 Creat Clearance w eGFR > 60 (>60) 10/26/17 07:20 Random Glucose 85 mg/dL (74-106) 10/26/17 07:20 Calcium 9.2 mg/dL (8.5-10.1) 10/26/17 07:20 Total Bilirubin 0.3 mg/dL (0.2-1.0) 10/26/17 07:20 AST 17 U/L (15-37) 10/26/17 07:20 ALT 20 U/L (12-78) 10/26/17 07:20 Alkaline Phosphatase 143 U/L (45-117) H 10/26/17 07:20 Total Protein 6.9 g/dl (6.4-8.2) 10/26/17 07:20 Albumin 3.5 g/dl (3.4-5.0) 10/26/17 07:20 Urine Color Yellow 10/25/17 14:59 Urine Appearance Slcloudy 10/25/17 14:59 Urine pH 5.0 (5.0-8.0) 10/25/17 14:59 Ur Specific [place] 1.012 (1.001-1.035) 10/25/17 14:59 Urine Protein 1+ (NEGATIVE) H 10/25/17 14:59 Urine Glucose (UA) Negative (NEGATIVE) 10/25/17 14:59 Urine Ketones Negative (NEGATIVE) 10/25/17 14:59 Urine Blood 1+ (NEGATIVE) H 10/25/17 14:59 Urine Nitrite Negative (NEGATIVE) 10/25/17 14:59 Urine Bilirubin Negative (<2.0 mg/dL) 10/25/17 14:59 Urine Urobilinogen Negative mg/dL (0.2-1.0) 10/25/17 14:59 Ur Leukocyte Esterase Trace (NEGATIVE) 10/25/17 14:59 Urine WBC (Auto) 10 /hpf (3-5) 10/25/17 14:59 Urine RBC (Auto) <1 /hpf (0-3) 10/25/17 14:59 Ur Epithelial Cells Rare /HPF (FEW) 10/25/17 14:59 Hyaline Casts 3 /lpf 10/25/17 14:59 Urine Mucus Rare 10/25/17 14:59 RPR Titer Nonreactive (NONREACTIVE) 10/26/17 07:20 lab noted - Treatment Hospital Course: Detox Protocol Followed, Detoxed Safely, Responded well, Discharged Condition Good, Rehab Referral Accepted Patient has Accepted a Rehab Referral to: [facility] - Medication Discharge Medications: Ambulatory Orders Tiotropium Kabetogama [Spiriva] 18 mcg IH DAILY 07/01/15 Multivitamin [One Daily] 1 each PO DAILY 01/30/17 Elviteg/Cob/Emtri/Tenof Alafen [Genvoya Tablet] 1 each PO DAILY 04/25/17 Aspirin Coated [Ecotrin -] 81 mg PO DAILY #30 tablet.ec 08/01/17 Mometasone/Formoterol [Dulera 200 Mcg/5 Mcg Inhaler] 2 inh IH BID #1 hfa.aer.ad 08/01/17 Metoprolol Succinate [Toprol XL -] 50 mg PO DAILY #30 tab.sr.24h 09/16/17 Prednisone [Deltasone] 20 mg PO DAILY 10/25/17 Quetiapine Fumarate [Seroquel -] 200 mg PO HS #30 tab 10/26/17 Sertraline HCl [Zoloft] 100 mg PO DAILY #30 tablet 10/26/17 Albuterol Sulfate Inhaler - [Ventolin HFA Inhaler -] 2 inh PO Q4H PRN #1 inh Amlodipine Besylate [Norvasc -] 10 mg PO DAILY #14 tablet 10/28/17 Atorvastatin Ca [Lipitor] 20 mg PO HS #14 tablet 10/28/17 Budesonide/Formeterol Fumarate [SYMBICORT 160/4.5mcg -] 1 puff IH BID #1 inhaler 10/28/17 Gabapentin [Neurontin -] 300 mg PO TID #60 cap 10/28/17 Hydrochlorothiazide [Hctz -] 25 mg PO DAILY #14 tablet 10/28/17 Metoprolol Succinate [Toprol XL -] 75 mg PO DAILY #14 tab.sr.24h 10/28/17 - Diagnosis (1) Alcohol dependence with withdrawal, uncomplicated Current Visit: Yes Status: Acute (2) Asthma Current Visit: Yes Status: Chronic Qualifiers: Asthma severity: mild Asthma persistence: intermittent Asthma complication type: uncomplicated Qualified Code(s): J45.20 - Mild intermittent asthma, uncomplicated (3) COPD (chronic obstructive pulmonary disease) Current Visit: Yes Status: Chronic Qualifiers: COPD type: emphysema Emphysema type: other Qualified Code(s): J43.8 - Other emphysema (4) Essential hypertension Current Visit: Yes Status: Chronic (5) GERD (gastroesophageal reflux disease) Current Visit: Yes Status: Chronic Qualifiers: Esophagitis presence: esophagitis presence not specified Qualified Code(s) : K21.9 - Gastro-esophageal reflux disease without esophagitis (6) HIV (human immunodeficiency virus infection) Current Visit: Yes Status: Chronic (7) Nicotine dependence Current Visit: Yes Status: Acute Qualifiers: Nicotine product type: cigarettes Substance use status: in withdrawal Qualified Code(s): F17.213 - Nicotine dependence, cigarettes, with withdrawal (8) Hypercholesterolemia Current Visit: Yes Status: Chronic - AMA Did Patient Leave Against Medical Advice: No
[2017-10-29 09:18] VITALS: BP 149/94; PULSE 88; TEMP 97.5
[2017-10-29] MEDS: POTASSIUM CHLORIDE TABS 20 MEQ TABLET.ER (FP) PO SCH (09:34)
[2017-10-29] MEDS: SERTRALINE HCL 50 MG TABLET (FP) PO SCH (09:34)
[2017-10-29] MEDS: PRENATAL VITAMINS W/ FOLIC ACID TABLET (FP) PO SCH (09:34)
[2017-10-29] MEDS: predniSONE 20 MG TABLET (UD) PO SCH (09:34)
[2017-10-29] MEDS: ASPIRIN COATED 81 MG TABLET.EC PO SCH (09:34)
[2017-10-29] MEDS: amLODIPine BESYLATE 10 MG TABLET (FP) PO SCH (09:34)
[2017-10-29] MEDS: HYDROCHLOROTHIAZIDE 25 MG TABLET (FP) PO SCH (09:34)
[2017-10-29] MEDS: BUDESONIDE/FORMETEROL FUMARATE 160/4.5 mcg INHALER IH SCH (09:35)
[2017-10-29] MEDS: METOPROLOL SUCCINATE 50 MG, METOPROLOL SUCCINATE 25 MG PO SCH (09:35)
[2017-10-29] MEDS: TIOTROPIUM BROMIDE 18 MCG CAPSULES IH SCH (09:39)
[2017-10-29] MEDS: ELVITEG/COB/EMTRI/TENOF (GENVOYA) TABLET (NF) PO SCH (11:01)
== END 2017-10-29 09:29 | disposition home or self-care (01) | DRG 774 ==
LOC: YASAS 08:37 → Y6N 11:30
PROVIDERS: ADMIT Surgery; ATTEND Surgery
PROC: HZ2ZZZZ Detoxification Services for Substance Abuse Treatment (ICD-10-PCS; principal; 2017-10-25)
DX: F10.230 Alcohol dependence with withdrawal, uncomplicated (principal); F14.20 Cocaine dependence, uncomplicated; F19.282 Other psychoactive substance dependence with psychoactive substance-induced sleep disorder; B20 Human immunodeficiency virus [HIV] disease; F33.9 Major depressive disorder, recurrent, unspecified; E78.00 Pure hypercholesterolemia, unspecified; I10 Essential (primary) hypertension; J45.20 Mild intermittent asthma, uncomplicated; J43.8 Other emphysema; K21.9 Gastro-esophageal reflux disease without esophagitis; R00.2 Palpitations; R01.1 Cardiac murmur, unspecified; Z88.8 Allergy status to other drugs, medicaments and biological substances; Z91.018 Allergy to other foods
CPT/HCPCS: 36415; 80053; 81003; 81015; 84132; 85027; 86593; 93005; 93010

== ENCOUNTER 2017-12-03 11:15 | Inpatient (IN) | payer OTHER ==
[2017-12-03 11:38] VITALS: BMI 28.1
[2017-12-03] MEDS ORDERED: QUEtiapine FUMARATE 200 MG TABLET PO SCH (14:15)
--- NOTE | 2017-12-03 14:18 | HP ---
Psychiatrist Admission - Data Date of interview: 12/03/17 Admission source: [address] [place] [address] detox Identifying data: This is the first admission to [address] [place] [address] for this 52 yo AA mother of 2 grown children,resides in [place], [place],supported by [place]. Medical History: HIV+ dx in 2014,COPD. Psychiatric History: Patient reports first contact with psychiatrist about 3 years ago to address depressed mood,anxiety,sleeping problems,drinking and drug use.She stopped to see her psychiatrist at [facility] a few months ago.She restarted Seroquel 200 mg po bid,Zoloft 100 mg po daily in detox on [address] [place] [address] last week prescribed by . Physical/Sexual Abuse/Trauma History: denies Vital Signs: Vital Signs - 24 hr 12/03/17 11:36 Temperature 97.3 F L Pulse Rate 77 Respiratory 18 Rate Blood Pressure 148/95 Allergies/Adverse Reactions: Allergies Allergy/AdvReac Type Severity Reaction Status Date / Time lisinopril Allergy Severe Swelling Verified 11/29/17 12:03 turkey Allergy Severe Rash Verified 11/29/17 12:03 Fish Containing Products Allergy Rash Verified 11/29/17 12:03 erythromycin base AdvReac Severe Rash Verified 11/29/17 12:03 sulfamethoxazole AdvReac Severe Rash Verified 11/29/17 12:03 [From Bactrim] trimethoprim [From Bactrim] AdvReac Severe Rash Verified 11/29/17 12:03 Date of last physical exam: 11/29/17 Concur with the findings of this exam: Yes - Substance Abuse/Tx History Hx Alcohol Use: Yes (drinking since school age,vodka 1 pint daily and 6 packs daily) Hx Substance Use: Yes (cocaine since 18 years old,spending $400-500 at time) Substance Use Type: Alcohol, Cocaine Hx Substance Use Treatment: Yes (longest abstinence 35 days) Mental Status Exam - Mental Status Exam Alert and Oriented to: Time, Place, Person Cognitive Function: Grossly Intact Patient Appearance: Unkempt Mood: Sad, Anxious Affect: Labile Patient Behavior: Cooperative Voice Loudness: Normal Thought Process: Goal Oriented Thought Disorder: Not Present Hallucinations: Denies Suicidal Ideation: Denies Homicidal Ideation: Denies Insight/Judgement: Fair Sleep: Fair Appetite: Good Muscle strength/Tone: Normal Gait/Station: Normal Psychiatric Findings - Problem List ([place] 1, 2,3) (1) Alcohol dependence Current Visit: Yes Status: Chronic (2) Hypercholesterolemia Current Visit: Yes Status: Chronic (3) MDD (major depressive disorder) Current Visit: Yes Status: Chronic Comment: Historical diagnosis. (4) Murmur, cardiac Current Visit: Yes Status: Chronic Comment: states had echo and told no need for treatment - asymptomatic (5) Cocaine dependence Current Visit: Yes Status: Acute (6) Essential hypertension Current Visit: Yes Status: Chronic (7) GERD (gastroesophageal reflux disease) Current Visit: Yes Status: Chronic Qualifiers: Esophagitis presence: esophagitis presence not specified Qualified Code(s) : K21.9 - Gastro-esophageal reflux disease without esophagitis (8) HIV (human immunodeficiency virus infection) Current Visit: Yes Status: Chronic (9) Nicotine dependence Current Visit: Yes Status: Chronic Qualifiers: Nicotine product type: cigarettes Substance use status: in withdrawal Qualified Code(s): F17.213 - Nicotine dependence, cigarettes, with withdrawal (10) Shingles Current Visit: Yes Status: Chronic Qualifiers: Herpes zoster complications: unspecified herpes zoster complication Qualified Code(s): B02.8 - Zoster with other complications - Initial Treatment Plan Initial Treatment Plan: Continue Seroquel 200 mg po bid,Zoloft 100 mg po daily will be adjusted to 150 mg po daily. will monitor progress.
[2017-12-03] MEDS ORDERED: MENTHOL/PHENOL 1 EACH UD MM PRN (15:50)
[2017-12-03] MEDS ORDERED: IBUPROFEN 400 MG TABLET (FP) PO PRN (15:50)
[2017-12-03] MEDS ORDERED: LOPERAMIDE HCL 2 MG CAPSULE PO PRN (15:50)
[2017-12-03] MEDS ORDERED: MAGNESIUM CITRATE 300 ML BOTTLE PO PRN (15:50)
[2017-12-03] MEDS ORDERED: hydrOXYzine PAMOATE 50 MG CAPSULE (FP) PO PRN (15:50)
[2017-12-03] MEDS ORDERED: MAGNESIUM HYDROX 2400MG/30ML ORAL SUSPENSION 30 ML CUP PO PRN (15:50)
[2017-12-03] MEDS ORDERED: ACETAMINOPHEN 325 MG TABLET (FP) PO PRN (15:50)
[2017-12-03] MEDS ORDERED: guaiFENesin/D-METHORPHAN HB 10 ML UNIT-DOSE CUPS PO PRN (15:50)
[2017-12-03] MEDS ORDERED: MAG HYDROX/AL HYDROX/SIMETH 30 ML UNIT-DOSE CUP PO PRN (15:50)
[2017-12-03] MEDS ORDERED: P-EPHED 60MG/TRIPROLIDI 2.5MG TABLET PO PRN (15:50)
--- NOTE | 2017-12-03 15:50 | HP ---
[facility] Rehab Assess/Revision - Admission History Admitted to Rehab from: [facility] Date of Admission to Rehab: 12/03/17 - Vital signs Vital Signs: Vital Signs Period Temp Pulse Resp BP Sys/Newman Pulse Ox Last 24 Hr 97.3 F 77 18 148/95 - Findings Detox History & Physical reviewed: Yes Concur with findings: Yes Comments/Additional Findings: for rehab s protocol Inpatient Rehab Admission - Initial Determination Are CD services needed?: Yes Free of communicable disease: Yes Not in need of hospitalization: Yes - Rehab Admission Criteria Previous failed treatment: Yes Poor recovery environment: Yes Comorbidities: Yes Lacks judgement: No Patient is meeting Inpatient Rehab admission criteria:: Yes
[2017-12-03] MEDS ORDERED: ALBUTEROL SO4 8 GM HFA INHALER IH PRN (15:53)
[2017-12-03] MEDS: QUEtiapine FUMARATE 200 MG TABLET PO SCH ×2 (17:15→21:46)
[2017-12-03] MEDS: POTASSIUM CHLORIDE TABS 20 MEQ TABLET.ER (FP) PO SCH (17:34)
[2017-12-03] MEDS: ATORVASTATIN CA 20 MG TABLET (FP) PO SCH (21:46)
[2017-12-03] MEDS: THIAMINE HCL 100 MG TABLET (FP) PO SCH (21:46)
[2017-12-03] MEDS: BUDESONIDE/FORMETEROL FUMARATE 160/4.5 mcg INHALER IH SCH (21:47)
[2017-12-04] MEDS ORDERED: cloNIDine HCL 0.1 MG TABLET PO ONE (06:33)
--- NOTE | 2017-12-04 06:36 | PN ---
[facility] Progress Note Note: Patient's blood pressure is B/P 162/114. Patient is asymptomatic Vital Signs Temperature 97.3 F L 12/04/17 06:32 Pulse Rate 77 12/04/17 06:32 Respiratory Rate 18 12/04/17 06:32 Blood Pressure 162/114 12/04/17 06:32 O2 Sat by Pulse Oximetry (%) Action: Clonidine 0.1mg tablet oral ordered
[2017-12-04] MEDS ORDERED: SERTRALINE HCL 50 MG TABLET (FP) PO SCH (10:00)
[2017-12-04] MEDS: BUDESONIDE/FORMETEROL FUMARATE 160/4.5 mcg INHALER IH SCH ×2 (10:38→22:05)
[2017-12-04] MEDS: POTASSIUM CHLORIDE TABS 20 MEQ TABLET.ER (FP) PO SCH (10:38)
[2017-12-04] MEDS: RANITIDINE HCL 150 MG TABLET (FP) PO SCH (10:39)
[2017-12-04] MEDS: ASPIRIN COATED 81 MG TABLET.EC PO SCH (10:39)
[2017-12-04] MEDS: QUEtiapine FUMARATE 200 MG TABLET PO SCH ×2 (10:39→22:04)
[2017-12-04] MEDS: SERTRALINE HCL 50 MG TABLET (FP) PO SCH (10:39)
[2017-12-04] MEDS: amLODIPine BESYLATE 10 MG TABLET (FP) PO SCH (10:39)
[2017-12-04] MEDS: HYDROCHLOROTHIAZIDE 25 MG TABLET (FP) PO SCH (10:39)
[2017-12-04] MEDS: PRENATAL VITAMINS W/ FOLIC ACID TABLET (FP) PO SCH (10:40)
[2017-12-04] MEDS ORDERED: PT OWN MED DRAWER 7, Y5N ONE (10:43)
[2017-12-04] MEDS: ATORVASTATIN CA 20 MG TABLET (FP) PO SCH (22:04)
[2017-12-04] MEDS: THIAMINE HCL 100 MG TABLET (FP) PO SCH (22:04)
[2017-12-05] MEDS ORDERED: cloNIDine HCL 0.1 MG TABLET PO ONE (07:12)
--- NOTE | 2017-12-05 07:15 | PN ---
[facility] Progress Note Note: Patient's blood pressure is B/P 156/111. Patient is asymptomatic
[2017-12-05] MEDS ORDERED: PT OWN MED DRAWER 7, Y5N ONE ×2 (08:59→18:11)
[2017-12-05] MEDS: PRENATAL VITAMINS W/ FOLIC ACID TABLET (FP) PO SCH (10:29)
[2017-12-05] MEDS: RANITIDINE HCL 150 MG TABLET (FP) PO SCH (10:29)
[2017-12-05] MEDS: POTASSIUM CHLORIDE TABS 20 MEQ TABLET.ER (FP) PO SCH (10:30)
[2017-12-05] MEDS: amLODIPine BESYLATE 10 MG TABLET (FP) PO SCH (10:30)
[2017-12-05] MEDS: QUEtiapine FUMARATE 200 MG TABLET PO SCH ×2 (10:30→21:45)
[2017-12-05] MEDS: ASPIRIN COATED 81 MG TABLET.EC PO SCH (10:30)
[2017-12-05] MEDS: HYDROCHLOROTHIAZIDE 25 MG TABLET (FP) PO SCH (10:30)
[2017-12-05] MEDS: SERTRALINE HCL 50 MG TABLET (FP) PO SCH (10:30)
[2017-12-05] MEDS: BUDESONIDE/FORMETEROL FUMARATE 160/4.5 mcg INHALER IH SCH ×2 (10:32→21:46)
[2017-12-05] MEDS: NICOTINE POLACRILEX 2 MG GUM BUC PRN ×4 (10:33→21:46)
[2017-12-05] MEDS: ATORVASTATIN CA 20 MG TABLET (FP) PO SCH (21:45)
[2017-12-05] MEDS: THIAMINE HCL 100 MG TABLET (FP) PO SCH (21:45)
[2017-12-06] MEDS ORDERED: PT OWN MED DRAWER 7, Y5N ONE ×2 (08:49→20:01)
[2017-12-06] MEDS: amLODIPine BESYLATE 10 MG TABLET (FP) PO SCH (10:31)
[2017-12-06] MEDS: HYDROCHLOROTHIAZIDE 25 MG TABLET (FP) PO SCH (10:31)
[2017-12-06] MEDS: SERTRALINE HCL 50 MG TABLET (FP) PO SCH (10:31)
[2017-12-06] MEDS: ASPIRIN COATED 81 MG TABLET.EC PO SCH (10:31)
[2017-12-06] MEDS: PRENATAL VITAMINS W/ FOLIC ACID TABLET (FP) PO SCH (10:31)
[2017-12-06] MEDS: POTASSIUM CHLORIDE TABS 20 MEQ TABLET.ER (FP) PO SCH (10:31)
[2017-12-06] MEDS: RANITIDINE HCL 150 MG TABLET (FP) PO SCH (10:31)
[2017-12-06] MEDS: QUEtiapine FUMARATE 200 MG TABLET PO SCH ×2 (10:31→21:09)
[2017-12-06] MEDS: BUDESONIDE/FORMETEROL FUMARATE 160/4.5 mcg INHALER IH SCH ×2 (10:33→21:11)
[2017-12-06] MEDS: NICOTINE POLACRILEX 2 MG GUM BUC PRN ×2 (17:39→21:10)
[2017-12-06] MEDS: ATORVASTATIN CA 20 MG TABLET (FP) PO SCH (21:09)
[2017-12-06] MEDS: THIAMINE HCL 100 MG TABLET (FP) PO SCH (21:09)
[2017-12-06] MEDS: MELATONIN 5 MG TABLETS PO PRN (21:10)
[2017-12-07] MEDS: ASPIRIN COATED 81 MG TABLET.EC PO SCH (10:35)
[2017-12-07] MEDS: POTASSIUM CHLORIDE TABS 20 MEQ TABLET.ER (FP) PO SCH (10:35)
[2017-12-07] MEDS: SERTRALINE HCL 50 MG TABLET (FP) PO SCH (10:35)
[2017-12-07] MEDS: HYDROCHLOROTHIAZIDE 25 MG TABLET (FP) PO SCH (10:35)
[2017-12-07] MEDS: PRENATAL VITAMINS W/ FOLIC ACID TABLET (FP) PO SCH (10:35)
[2017-12-07] MEDS: BUDESONIDE/FORMETEROL FUMARATE 160/4.5 mcg INHALER IH SCH ×2 (10:36→21:39)
[2017-12-07] MEDS: RANITIDINE HCL 150 MG TABLET (FP) PO SCH (10:36)
[2017-12-07] MEDS: amLODIPine BESYLATE 10 MG TABLET (FP) PO SCH (10:36)
[2017-12-07] MEDS: QUEtiapine FUMARATE 200 MG TABLET PO SCH ×2 (10:36→21:38)
[2017-12-07] MEDS: NICOTINE POLACRILEX 2 MG GUM BUC PRN ×2 (10:37→19:54)
[2017-12-07] MEDS: ATORVASTATIN CA 20 MG TABLET (FP) PO SCH (21:38)
[2017-12-07] MEDS: THIAMINE HCL 100 MG TABLET (FP) PO SCH (21:38)
[2017-12-07] MEDS: MELATONIN 5 MG TABLETS PO PRN (21:39)
[2017-12-08] MEDS: RANITIDINE HCL 150 MG TABLET (FP) PO SCH (10:43)
[2017-12-08] MEDS: HYDROCHLOROTHIAZIDE 25 MG TABLET (FP) PO SCH (10:43)
[2017-12-08] MEDS: POTASSIUM CHLORIDE TABS 20 MEQ TABLET.ER (FP) PO SCH (10:43)
[2017-12-08] MEDS: amLODIPine BESYLATE 10 MG TABLET (FP) PO SCH (10:43)
[2017-12-08] MEDS: SERTRALINE HCL 50 MG TABLET (FP) PO SCH (10:44)
[2017-12-08] MEDS: ASPIRIN COATED 81 MG TABLET.EC PO SCH (10:44)
[2017-12-08] MEDS: QUEtiapine FUMARATE 200 MG TABLET PO SCH ×2 (10:45→21:26)
[2017-12-08] MEDS: BUDESONIDE/FORMETEROL FUMARATE 160/4.5 mcg INHALER IH SCH ×2 (10:45→21:27)
[2017-12-08] MEDS: PRENATAL VITAMINS W/ FOLIC ACID TABLET (FP) PO SCH (10:45)
--- NOTE | 2017-12-08 14:17 | PN ---
[facility] Progress Note Note: Vital Signs Temperature 97.4 F L 12/08/17 07:17 Pulse Rate 80 12/08/17 10:00 Respiratory Rate 16 12/08/17 07:17 Blood Pressure 151/99 12/08/17 10:00 O2 Sat by Pulse Oximetry (%) Laboratory Last Values Potassium 4.0 mmol/L (3.5-5.1) 12/04/17 08:20 Patient stable Potassium stable, asymptomatic, d/c k-dur, repeat K+ in AM Repeat BP increase fluids continue to monitor
[2017-12-08] MEDS: NICOTINE POLACRILEX 2 MG GUM BUC PRN (15:33)
[2017-12-08] MEDS ORDERED: CYCLOBENZAPRINE HCL 10 MG TABLET (FP) PO PRN (21:07)
[2017-12-08] MEDS: ATORVASTATIN CA 20 MG TABLET (FP) PO SCH (21:26)
[2017-12-08] MEDS: MELATONIN 5 MG TABLETS PO PRN (21:27)
[2017-12-08] MEDS: THIAMINE HCL 100 MG TABLET (FP) PO SCH (21:27)
[2017-12-09] MEDS: NICOTINE POLACRILEX 2 MG GUM BUC PRN ×3 (06:23→17:36)
[2017-12-09] MEDS: ASPIRIN COATED 81 MG TABLET.EC PO SCH (10:17)
[2017-12-09] MEDS: HYDROCHLOROTHIAZIDE 25 MG TABLET (FP) PO SCH (10:17)
[2017-12-09] MEDS: QUEtiapine FUMARATE 200 MG TABLET PO SCH ×2 (10:18→21:51)
[2017-12-09] MEDS: PRENATAL VITAMINS W/ FOLIC ACID TABLET (FP) PO SCH (10:18)
[2017-12-09] MEDS: BUDESONIDE/FORMETEROL FUMARATE 160/4.5 mcg INHALER IH SCH ×2 (10:18→21:53)
[2017-12-09] MEDS: amLODIPine BESYLATE 10 MG TABLET (FP) PO SCH (10:18)
[2017-12-09] MEDS: RANITIDINE HCL 150 MG TABLET (FP) PO SCH (10:19)
[2017-12-09] MEDS: SERTRALINE HCL 50 MG TABLET (FP) PO SCH (10:19)
[2017-12-09] MEDS ORDERED: CYCLOBENZAPRINE HCL 5 MG TABLET PO PRN (10:26)
--- NOTE | 2017-12-09 14:56 | PN ---
[facility] Progress Note Note: Vital Signs Temperature 97.9 F 12/09/17 07:08 Pulse Rate 71 12/09/17 09:06 Respiratory Rate 18 12/09/17 07:08 Blood Pressure 145/89 12/09/17 09:06 O2 Sat by Pulse Oximetry (%) Laboratory Last Values Potassium 4.0 mmol/L (3.5-5.1) 12/04/17 08:20 Patient c/o of itchy, white vaginal discharge. Clotrimazole VG x 5 days increase fluids continue to monitor
[2017-12-09] MEDS ORDERED: CYCLOBENZAPRINE HCL 10 MG TABLET (FP) PO PRN (15:25)
[2017-12-09] MEDS: ATORVASTATIN CA 20 MG TABLET (FP) PO SCH (21:51)
[2017-12-09] MEDS: THIAMINE HCL 100 MG TABLET (FP) PO SCH (21:51)
[2017-12-09] MEDS: MELATONIN 5 MG TABLETS PO PRN (21:52)
[2017-12-09] MEDS: CLOTRIMAZOLE 1% VAGINAL CREAM WITH APPLICATOR 45 GM TUBE VG SCH (21:52)
[2017-12-10] MEDS: NICOTINE POLACRILEX 2 MG GUM BUC PRN ×3 (06:26→19:43)
[2017-12-10] MEDS ORDERED: PT OWN MED DRAWER 7, Y5N ONE ×2 (08:31→22:01)
[2017-12-10] MEDS: PRENATAL VITAMINS W/ FOLIC ACID TABLET (FP) PO SCH (10:25)
[2017-12-10] MEDS: ASPIRIN COATED 81 MG TABLET.EC PO SCH (10:26)
[2017-12-10] MEDS: amLODIPine BESYLATE 10 MG TABLET (FP) PO SCH (10:26)
[2017-12-10] MEDS: SERTRALINE HCL 50 MG TABLET (FP) PO SCH (10:26)
[2017-12-10] MEDS: HYDROCHLOROTHIAZIDE 25 MG TABLET (FP) PO SCH (10:26)
[2017-12-10] MEDS: RANITIDINE HCL 150 MG TABLET (FP) PO SCH (10:26)
[2017-12-10] MEDS: QUEtiapine FUMARATE 200 MG TABLET PO SCH ×2 (10:26→21:06)
[2017-12-10] MEDS: BUDESONIDE/FORMETEROL FUMARATE 160/4.5 mcg INHALER IH SCH ×2 (10:27→21:09)
--- NOTE | 2017-12-10 13:37 | PN ---
S Progress Note Note: Vital Signs Temperature 97.7 F 12/10/17 07:16 Pulse Rate 76 12/10/17 09:54 Respiratory Rate 18 12/10/17 07:16 Blood Pressure 124/85 12/10/17 09:54 O2 Sat by Pulse Oximetry (%) Laboratory Last Values Potassium 4.3 mmol/L (3.5-5.1) 12/09/17 08:30 K+ stable Patient currently stable patient currently receding flexeril for back pain, requested robaxin fo better relief. flexeril d/c start robaxin 500mg BID. continue to monitor
[2017-12-10] MEDS: ATORVASTATIN CA 20 MG TABLET (FP) PO SCH (21:06)
[2017-12-10] MEDS: THIAMINE HCL 100 MG TABLET (FP) PO SCH (21:06)
[2017-12-10] MEDS: CLOTRIMAZOLE 1% VAGINAL CREAM WITH APPLICATOR 45 GM TUBE VG SCH (21:07)
[2017-12-10] MEDS: MELATONIN 5 MG TABLETS PO PRN (21:08)
[2017-12-10] MEDS: METHOCARBAMOL 500 MG TABLET PO SCH (21:08)
[2017-12-11] MEDS: NICOTINE POLACRILEX 2 MG GUM BUC PRN ×3 (07:38→21:51)
[2017-12-11] MEDS: SERTRALINE HCL 50 MG TABLET (FP) PO SCH (09:38)
[2017-12-11] MEDS: BUDESONIDE/FORMETEROL FUMARATE 160/4.5 mcg INHALER IH SCH ×2 (09:38→21:48)
[2017-12-11] MEDS: PRENATAL VITAMINS W/ FOLIC ACID TABLET (FP) PO SCH (09:43)
[2017-12-11] MEDS: RANITIDINE HCL 150 MG TABLET (FP) PO SCH (09:43)
[2017-12-11] MEDS: amLODIPine BESYLATE 10 MG TABLET (FP) PO SCH (09:43)
[2017-12-11] MEDS: HYDROCHLOROTHIAZIDE 25 MG TABLET (FP) PO SCH (09:43)
[2017-12-11] MEDS: QUEtiapine FUMARATE 200 MG TABLET PO SCH ×2 (09:43→21:28)
[2017-12-11] MEDS: METHOCARBAMOL 500 MG TABLET PO SCH ×2 (09:43→21:28)
[2017-12-11] MEDS: ASPIRIN COATED 81 MG TABLET.EC PO SCH (09:44)
[2017-12-11] MEDS ORDERED: COLLOIDAL OATMEAL 1 BAR EACH TP PRN (14:24)
[2017-12-11] MEDS: MELATONIN 5 MG TABLETS PO PRN (21:28)
[2017-12-11] MEDS: ATORVASTATIN CA 20 MG TABLET (FP) PO SCH (21:28)
[2017-12-11] MEDS: THIAMINE HCL 100 MG TABLET (FP) PO SCH (21:28)
[2017-12-11] MEDS ORDERED: PT OWN MED DRAWER 7, Y5N ONE (21:42)
[2017-12-11] MEDS: CLOTRIMAZOLE 1% VAGINAL CREAM WITH APPLICATOR 45 GM TUBE VG SCH (21:49)
[2017-12-12] MEDS: NICOTINE POLACRILEX 2 MG GUM BUC PRN ×3 (06:28→15:45)
[2017-12-12] MEDS: BUDESONIDE/FORMETEROL FUMARATE 160/4.5 mcg INHALER IH SCH ×2 (09:52→21:06)
[2017-12-12] MEDS: amLODIPine BESYLATE 10 MG TABLET (FP) PO SCH (09:53)
[2017-12-12] MEDS: PRENATAL VITAMINS W/ FOLIC ACID TABLET (FP) PO SCH (09:53)
[2017-12-12] MEDS: SERTRALINE HCL 50 MG TABLET (FP) PO SCH (09:53)
[2017-12-12] MEDS: QUEtiapine FUMARATE 200 MG TABLET PO SCH ×2 (09:53→21:07)
[2017-12-12] MEDS: RANITIDINE HCL 150 MG TABLET (FP) PO SCH (09:53)
[2017-12-12] MEDS: METHOCARBAMOL 500 MG TABLET PO SCH ×2 (09:54→21:07)
[2017-12-12] MEDS: ASPIRIN COATED 81 MG TABLET.EC PO SCH (09:54)
[2017-12-12] MEDS: HYDROCHLOROTHIAZIDE 25 MG TABLET (FP) PO SCH (09:54)
[2017-12-12] MEDS ORDERED: PT OWN MED DRAWER 7, Y5N ONE ×2 (10:30→19:47)
[2017-12-12] MEDS: ATORVASTATIN CA 20 MG TABLET (FP) PO SCH (21:07)
[2017-12-12] MEDS: THIAMINE HCL 100 MG TABLET (FP) PO SCH (21:07)
[2017-12-12] MEDS: CLOTRIMAZOLE 1% VAGINAL CREAM WITH APPLICATOR 45 GM TUBE VG SCH (21:07)
[2017-12-12] MEDS: MELATONIN 5 MG TABLETS PO PRN (21:08)
[2017-12-13] MEDS: NICOTINE POLACRILEX 2 MG GUM BUC PRN ×3 (07:43→17:56)
[2017-12-13] MEDS ORDERED: PT OWN MED DRAWER 7, Y5N ONE (08:52)
[2017-12-13] MEDS: FLUCONAZOLE 100 MG TABLET (UD) PO SCH (10:12)
[2017-12-13] MEDS: PRENATAL VITAMINS W/ FOLIC ACID TABLET (FP) PO SCH (10:13)
[2017-12-13] MEDS: SERTRALINE HCL 50 MG TABLET (FP) PO SCH (10:13)
[2017-12-13] MEDS: METHOCARBAMOL 500 MG TABLET PO SCH ×2 (10:13→21:13)
[2017-12-13] MEDS: BUDESONIDE/FORMETEROL FUMARATE 160/4.5 mcg INHALER IH SCH ×2 (10:14→21:15)
[2017-12-13] MEDS: ASPIRIN COATED 81 MG TABLET.EC PO SCH (10:14)
[2017-12-13] MEDS: RANITIDINE HCL 150 MG TABLET (FP) PO SCH (10:14)
[2017-12-13] MEDS: amLODIPine BESYLATE 10 MG TABLET (FP) PO SCH (10:14)
[2017-12-13] MEDS: QUEtiapine FUMARATE 200 MG TABLET PO SCH ×2 (10:14→21:13)
[2017-12-13] MEDS: HYDROCHLOROTHIAZIDE 25 MG TABLET (FP) PO SCH (10:14)
[2017-12-13] MEDS: THIAMINE HCL 100 MG TABLET (FP) PO SCH (21:13)
[2017-12-13] MEDS: ATORVASTATIN CA 20 MG TABLET (FP) PO SCH (21:13)
[2017-12-13] MEDS: MELATONIN 5 MG TABLETS PO PRN (21:14)
[2017-12-13] MEDS: CLOTRIMAZOLE 1% VAGINAL CREAM WITH APPLICATOR 45 GM TUBE VG SCH (21:14)
[2017-12-14] MEDS: BUDESONIDE/FORMETEROL FUMARATE 160/4.5 mcg INHALER IH SCH ×2 (10:03→21:43)
[2017-12-14] MEDS: RANITIDINE HCL 150 MG TABLET (FP) PO SCH (10:04)
[2017-12-14] MEDS: PRENATAL VITAMINS W/ FOLIC ACID TABLET (FP) PO SCH (10:04)
[2017-12-14] MEDS: METHOCARBAMOL 500 MG TABLET PO SCH ×2 (10:04→21:42)
[2017-12-14] MEDS: ASPIRIN COATED 81 MG TABLET.EC PO SCH (10:04)
[2017-12-14] MEDS: amLODIPine BESYLATE 10 MG TABLET (FP) PO SCH (10:04)
[2017-12-14] MEDS: QUEtiapine FUMARATE 200 MG TABLET PO SCH ×2 (10:04→21:42)
[2017-12-14] MEDS: SERTRALINE HCL 50 MG TABLET (FP) PO SCH (10:05)
[2017-12-14] MEDS: HYDROCHLOROTHIAZIDE 25 MG TABLET (FP) PO SCH (10:05)
[2017-12-14] MEDS: FLUCONAZOLE 100 MG TABLET (UD) PO SCH (10:05)
[2017-12-14] MEDS: NICOTINE POLACRILEX 2 MG GUM BUC PRN ×3 (10:06→19:20)
[2017-12-14] MEDS: MELATONIN 5 MG TABLETS PO PRN (21:42)
[2017-12-14] MEDS: THIAMINE HCL 100 MG TABLET (FP) PO SCH (21:42)
[2017-12-14] MEDS: ATORVASTATIN CA 20 MG TABLET (FP) PO SCH (21:42)
[2017-12-15] MEDS: ASPIRIN COATED 81 MG TABLET.EC PO SCH (09:03)
[2017-12-15] MEDS: FLUCONAZOLE 100 MG TABLET (UD) PO SCH (09:03)
[2017-12-15] MEDS: METHOCARBAMOL 500 MG TABLET PO SCH ×2 (09:03→21:16)
[2017-12-15] MEDS: QUEtiapine FUMARATE 200 MG TABLET PO SCH ×2 (09:04→21:16)
[2017-12-15] MEDS: SERTRALINE HCL 50 MG TABLET (FP) PO SCH (09:04)
[2017-12-15] MEDS: amLODIPine BESYLATE 10 MG TABLET (FP) PO SCH (09:04)
[2017-12-15] MEDS: RANITIDINE HCL 150 MG TABLET (FP) PO SCH (09:04)
[2017-12-15] MEDS: PRENATAL VITAMINS W/ FOLIC ACID TABLET (FP) PO SCH (09:04)
[2017-12-15] MEDS: BUDESONIDE/FORMETEROL FUMARATE 160/4.5 mcg INHALER IH SCH ×2 (09:05→21:17)
[2017-12-15] MEDS: HYDROCHLOROTHIAZIDE 25 MG TABLET (FP) PO SCH (09:05)
[2017-12-15] MEDS: NICOTINE POLACRILEX 2 MG GUM BUC PRN ×2 (14:46→17:16)
[2017-12-15] MEDS: MELATONIN 5 MG TABLETS PO PRN (21:16)
[2017-12-15] MEDS: ATORVASTATIN CA 20 MG TABLET (FP) PO SCH (21:16)
[2017-12-15] MEDS: THIAMINE HCL 100 MG TABLET (FP) PO SCH (21:16)
[2017-12-16 07:06] VITALS: BP 137/90; PULSE 71; TEMP 97.7
[2017-12-16] MEDS: NICOTINE POLACRILEX 2 MG GUM BUC PRN (07:23)
== END 2017-12-16 08:40 | disposition home or self-care (01) | DRG 772 ==
LOC: YASAS 11:15 → Y3E 11:16
PROVIDERS: ADMIT Psychiatry & Neurology Psychiatry; ATTEND Psychiatry & Neurology Psychiatry
PROC: HZ42ZZZ Group Counseling for Substance Abuse Treatment, Cognitive-Behavioral (ICD-10-PCS; principal; 2017-12-03)
DX: F10.20 Alcohol dependence, uncomplicated (principal); F14.20 Cocaine dependence, uncomplicated; F17.213 Nicotine dependence, cigarettes, with withdrawal; F33.9 Major depressive disorder, recurrent, unspecified; I10 Essential (primary) hypertension; E78.00 Pure hypercholesterolemia, unspecified; K21.9 Gastro-esophageal reflux disease without esophagitis; J44.9 Chronic obstructive pulmonary disease, unspecified; B02.8 Zoster with other complications; Z21 Asymptomatic human immunodeficiency virus [HIV] infection status; Z91.013 Allergy to seafood; Z88.1 Allergy status to other antibiotic agents; Z88.8 Allergy status to other drugs, medicaments and biological substances; Z91.5 Personal history of self-harm
CPT/HCPCS: 36415; 84132; J0735

== ENCOUNTER 2018-04-23 08:30 | Inpatient (IN) | payer OTHER ==
[2018-04-23 09:01] VITALS: BMI 28.8
--- NOTE | 2018-04-23 10:38 | HP ---
CIWA Score Nausea/Vomitin Muscle Tremors: 2 Anxiety: 2 Agitation: 2 Paroxysmal Sweats: 1-Minimal Palms Moist Orientation: 0-Oriented Tacttile Disturbances: 1-Very Mild Itch/Numbness Auditory Disturbances: 1-Very Mild Visual Disturbances: 0-None Headache: 2-Mild CIWA-Ar Total Score: 13 - Admission Criteria OASAS Guidelines: Admission for Medically Managed Detox: Requires at least one of the followin. CIWA greater than 12 2. Seizures within the past 24 hours 3. Delirium tremens within the past 24 hours 4. Hallucinations within the past 24 hours 5. Acute intervention needed for co occurring medical disorder 6. Acute intervention needed for co occurring psychiatric disorder 7. Severe withdrawal that cannot be handled at a lower level of care (continued vomiting, continued diarrhea, abnormal vital signs) requiring intravenous medication and/or fluids 8. Patient presents the following: CIWA greater than 12 Admission Criteria Met: Admission criteria met Admission ROS S - [facility] Chief Complaint: i marielos help to stop drinking alcohol and cocaine Allergies/Adverse Reactions: Allergies Allergy/AdvReac Type Severity Reaction Status Date / Time lisinopril Allergy Severe Swelling Verified 04/23/18 09:39 turkey Allergy Severe Rash Verified 04/23/18 09:39 Fish Containing Products Allergy Rash Verified 04/23/18 09:39 erythromycin base AdvReac Severe Rash Verified 04/23/18 09:39 sulfamethoxazole AdvReac Severe Rash Verified 04/23/18 09:39 [From Bactrim] trimethoprim [From Bactrim] AdvReac Severe Rash Verified 04/23/18 09:39 History of Present Illness: this 52 years old female with alcohol and cocaine dependence,seeking detox, withdrawal symptom,last detox [facility] 11/29/17 to 12/03/17 rehab 12/03/17 to 12/16/13 seen for sty of right eyelid on keflex 500 gs q 6hrs for last 4 days,improvong history of hypertension,asthma,copd, hiiv since 2012 non compliance,last medication 6 months ago nicotine dependence depression,bipolar disorder multiple detox in the past ,relapsing longest period of sobriety 3 years plan [facility] Exam Limitations: No Limitations - Ebola screening Have you traveled outside of the country in the last 21 days: No Have you had contact with anyone from an Ebola affected area: No Have you been sick,other than usual withdrawal symptoms: No Do you have a fever: No - Review of Systems Constitutional: Loss of Appetite, Malaise, Weakness EENT: reports: Tearing, Nose Congestion Respiratory: reports: No Symptoms reported (asthma) Cardiac: reports: No Symptoms Reported GI: reports: Diarrhea, Nausea, Vomiting, Abdominal cramping : reports: No Symptoms Reported Musculoskeletal: reports: Back Pain, Muscle Pain Integumentary: reports: Dryness Neuro: reports: Headache, Tremors Endocrine: reports: No Symptoms Reported Hematology: reports: No Symptoms Reported, Other (hiv) Psychiatric: reports: No Sypmtoms Reported, Judgement Intact, Mood/Affect Appropiate, Anxious, Depressed, other (bipolar disorder) Patient History - Patient Medical History Hx Anemia: No Hx Asthma: Yes (on albuterol and symbicort) Hx Chronic Obstructive Pulmonary Disease (COPD): Yes (spiriva) Hx Cancer: No Hx Cardiac Disorders: No Hx Congestive Heart Failure: No Hx Hypertension: Yes (on med) Hx Hypercholesterolemia: Yes (on med) Hx Pacemaker: No HX Cerebrovascular Accident: No Hx Seizures: No Hx Dementia: No Hx Diabetes: No Hx Gastrointestinal Disorders: Yes (acid reflux) Hx Liver Disease: No Hx Genitourinary Disorders: No Hx Sexually Transmitted Disorders: Yes (gonorrhea and syphilis) Hx Renal Disease (ESRD): No Hx Thyroid Disease: No Hx Human Immunodeficiency Virus (HIV): Yes (ON GENVOYA , VL <20 last mediction 6 months ago) Hx Hepatitis C: No Hx Depression: Yes Hx Suicide Attempt: No Hx Bipolar Disorder: Yes Hx Schizophrenia: No Other Medical History: no suicidal,no homicidal - Patient Surgical History Past Surgical History: Yes Hx Neurologic Surgery: No Hx Cataract Extraction: No Hx Cardiac Surgery: No Hx Lung Surgery: No Hx Breast Surgery: No Hx Breast Biopsy: No Hx Abdominal Surgery: No Hx Appendectomy: No Hx Cholecystectomy: No Hx Genitourinary Surgery: No Hx Section: No Hx Orthopedic Surgery: No Hx Hysterectomy: No Other Surgical History: ectopic at age 30 Anesthesia Reaction: No - PPD History Previous Implant?: Yes Documented Results: Negative w/proof Implanted On Prior R Admission?: Yes Date: 09/15/17 Results: 0 mm PPD to be Administered?: No - Reproductive History Patient is a Female of Child Bearing Age (11 -55 yrs old): Yes Last Menstrual Period: 08/12/13 Patient : No - Smoking Cessation Smoking history: Current every day smoker Have you smoked in the past 12 months: Yes Aproximately how many cigarettes per day: 20 Cigars Per Day: 0 Hx Chewing Tobacco Use: No Initiated information on smoking cessation: Yes 'Breaking Loose' booklet given: 04/23/18 - Substance & Tx. History Hx Alcohol Use: Yes Hx Substance Use: Yes Hx Substance Use Treatment: Yes ([facility] 11/29/17 to 12/03/17,rehab 12/03/17 to 07/30) - Substances Abused Crack Route: Smoking Frequency: Daily Amount used: $200 Age of first use: 18 Date of Last Use: 04/22/18 Alcohol-vodka/beer Route: Oral Frequency: Daily Amount used: 2 pts./2-6 pks. Age of first use: 16 Date of Last Use: 04/23/18 Family Disease History - Family Disease History Family Disease History: Diabetes: Father (alcohol,), Mother (alcohol, ), Heart Disease: Father, Mother, Sister (3 sisters - one [place]), CA: Father, Mother, Respiratory: Father, Other: Brother (4 brothers - one murdered), Sister, Son (one - 28 - healthy), Daughter (one - age 23 - healthy) Admission Physical Exam S - Vital Signs Vital Signs: Vital Signs - 24 hr 04/23/18 08:56 Temperature 97.5 F L Pulse Rate 87 Respiratory 18 Rate Blood Pressure 164/108 H - Physical General Appearance: Yes: Moderate Distress, Tremorous, Irritable, Sweating, Anxious HEENTM: Yes: Normal ENT Inspection, DAIANA, Pharynx Normal, Other (sty of right lower eyelid) Respiratory: Yes: Lungs Clear, Normal Breath Sounds, No Respiratory Distress Neck: Yes: Within Normal Limits, Supple, Trachea in good position Breast: Yes: Breast Exam Deferred Cardiology: Yes: Within Normal Limits, Regular Rhythm, Regular Rate, S1, S2 Abdominal: Yes: Within Normal Limits, Normal Bowel Sounds, Non Tender, Flat, Soft Genitourinary: Yes: Within Normal Limits Back: Yes: Muscle Spasm Musculoskeletal: Yes: Back pain, Joint Stiffness, Muscle Pain Extremities: Yes: Within Normal Limits, Normal Range of Motion, Tremors Neurological: Yes: language arts teacher II-XII NML intact, Fully Oriented, Alert, Motor Strength 5/5 Integumentary: Yes: Dry Lymphatic: Yes: Within Normal Limits - Diagnostic (1) Alcohol dependence with uncomplicated withdrawal Current Visit: Yes Status: Acute (2) COPD (chronic obstructive pulmonary disease) Current Visit: No Status: Chronic Qualifiers: COPD type: emphysema Emphysema type: other Qualified Code(s): J43.8 - Other emphysema (3) Nicotine dependence Current Visit: No Status: Chronic Qualifiers: Nicotine product type: cigarettes Substance use status: in withdrawal Qualified Code(s): F17.213 - Nicotine dependence, cigarettes, with withdrawal (4) Asthma Current Visit: No Status: Chronic Qualifiers: Asthma severity: mild Asthma persistence: intermittent Asthma complication type: uncomplicated Qualified Code(s): J45.20 - Mild intermittent asthma, uncomplicated (5) Essential hypertension Current Visit: No Status: Chronic (6) GERD (gastroesophageal reflux disease) Current Visit: No Status: Chronic Qualifiers: Esophagitis presence: esophagitis presence not specified Qualified Code(s) : K21.9 - Gastro-esophageal reflux disease without esophagitis (7) HIV (human immunodeficiency virus infection) Current Visit: No Status: Chronic (8) History of syphilis Current Visit: Yes Status: Acute Cleared for Admission S - Detox or Rehab S Level of Care: Medically Managed Detox Regimen/Protocol: Librium S Breath Alcohol Content Breath Alcohol Content: 0.032 Urine Pregancy Test - Result Urine Test Results: Negative- NO Line Present Urine Drug Screen - Results Drug Screen Negative: No Urine Drug Screen Results: CHRISTOPHE-Cocaine
[2018-04-23] MEDS ORDERED: P-EPHED 60MG/TRIPROLIDI 2.5MG TABLET PO PRN (10:54)
[2018-04-23] MEDS ORDERED: hydrOXYzine PAMOATE 25 MG CAPSULE (FP) PO PRN (10:54)
[2018-04-23] MEDS ORDERED: IBUPROFEN 400 MG TABLET (FP) PO PRN (10:54)
[2018-04-23] MEDS ORDERED: MENTHOL/PHENOL 1 EACH UD MM PRN (10:54)
[2018-04-23] MEDS ORDERED: chlordiazePOXIDE HCL 25 MG CAPSULE PO PRN (10:54)
[2018-04-23] MEDS ORDERED: LOPERAMIDE HCL 2 MG CAPSULE PO PRN (10:54)
[2018-04-23] MEDS ORDERED: MAGNESIUM HYDROX 2400MG/30ML ORAL SUSPENSION 30 ML CUP PO PRN (10:54)
[2018-04-23] MEDS ORDERED: MAG HYDROX/AL HYDROX/SIMETH 30 ML UNIT-DOSE CUP PO PRN (10:54)
[2018-04-23] MEDS ORDERED: guaiFENesin/D-METHORPHAN HB 10 ML UNIT-DOSE CUPS PO PRN (10:54)
[2018-04-23] MEDS ORDERED: ACETAMINOPHEN 325 MG TABLET (FP) PO PRN (10:54)
[2018-04-23] MEDS ORDERED: MAGNESIUM CITRATE 300 ML BOTTLE PO PRN (10:54)
[2018-04-23] MEDS: HYDROCHLOROTHIAZIDE 25 MG TABLET (FP) PO SCH (13:03)
[2018-04-23] MEDS: amLODIPine BESYLATE 10 MG TABLET (FP) PO SCH (13:04)
[2018-04-23] MEDS: ASPIRIN COATED 81 MG TABLET.EC PO SCH (13:04)
[2018-04-23] MEDS: ALBUTEROL SO4 8 GM HFA INHALER IH PRN (13:08)
[2018-04-23] MEDS: PATIENT'S OWN MEDICATION (NON-FORMULARY) (Cephalexin [Keflex] 500 MG) PO SCH ×3 (15:00→22:10)
[2018-04-23] MEDS: TIOTROPIUM BROMIDE 2.5 MCG (SPIRIVA) RESPIMAT INHALER IH SCH (15:04)
[2018-04-23] MEDS: BUDESONIDE/FORMETEROL FUMARATE 160/4.5 mcg INHALER IH SCH ×2 (15:19→22:09)
--- NOTE | 2018-04-23 17:42 | CONSULT ---
[facility] Psychiatric Consult - Data Date of interview: 04/23/18 Admission source: [facility] Identifying data: Patient is a 52 year old single female, mother of two, unemployed, and is residing in a correction. This is one of multiple admissions for patient. Patient admitted to for alcohol and cocaine dependence. Substance Abuse History: Smoking Cessation. Smoking history: Current every day smoker. Have you smoked in the past 12 months: Yes. Aproximately how many cigarettes per day: 20. Cigars Per Day: 0. Hx Chewing Tobacco Use: No. Initiated information on smoking cessation: Yes. 'Breaking Loose' booklet given : 04/23/18. - Substance & Tx. History. Hx Alcohol Use: Yes. Hx Substance Use : Yes. Hx Substance Use Treatment: Yes ([facility] to 12/03/17,rehab to 12/16/17). - Substances Abused. Crack. Route: Smoking. Frequency: Daily. Amount used: $200. Age of first use: 18. Date of Last Use: 04/22/18. Alcohol-vodka/beer. Route: Oral. Frequency: Daily. Amount used: 2 pts./2- 6 pks. Age of first use: 16. Date of Last Use: 04/23/18 Medical History: Significant for asthma, hypertension, acid reflux, HIV, h/o gonorrhea and syphilis, COPD, ectopic at age 30. Psychiatric History: Patient denies h/o psychiatric hospitalization and suicide attempt. She reports h/o outpatient psychiatric care at [facility] in the [place], although reports last seeing the psychiatrist 2 months ago. States she is prescribed zoloft 100mg and seroquel 200mg. Ms. Nathan reports sub- optimal adherence to medications. At present, she reports feeling sad. Physical/Sexual Abuse/Trauma History: Denies. Mental Status Exam - Mental Status Exam Alert and Oriented to: Time, Place, Person Cognitive Function: Good Patient Appearance: Well Groomed Mood: Euthymic Affect: Appropriate Patient Behavior: Fatigued, Cooperative Speech Pattern: Clear Voice Loudness: Moderately Soft/Quiet Thought Process: Intact, Goal Oriented Thought Disorder: Not Present Hallucinations: Denies Suicidal Ideation: Denies Homicidal Ideation: Denies Insight/Judgement: Poor Sleep: Poorly Appetite: Fair Muscle strength/Tone: Normal Gait/Station: Normal Psychiatric Findings - Problem List ([place] 1, 2,3) (1) Alcohol dependence with uncomplicated withdrawal Current Visit: Yes Status: Acute (2) Cocaine dependence Current Visit: No Status: Chronic (3) Substance-induced sleep disorder Current Visit: Yes Status: Acute (4) MDD (major depressive disorder) Current Visit: Yes Status: Chronic Comment: Historical diagnosis. (5) Nicotine dependence Current Visit: No Status: Chronic Qualifiers: Nicotine product type: cigarettes Substance use status: in withdrawal Qualified Code(s): F17.213 - Nicotine dependence, cigarettes, with withdrawal - Initial Treatment Plan Initial Treatment Plan: Psychoeducation provided. Detoxification in progress. Will order Zoloft 100mg + Seroquel 100mg HS. Benefits and side effects discussed. Verbal consent given.
[2018-04-23] MEDS: chlordiazePOXIDE HCL 25 MG CAPSULE PO SCH ×2 (18:06→22:09)
[2018-04-23] MEDS ORDERED: MELATONIN 5 MG TABLETS PO PRN (22:00)
[2018-04-23] MEDS: QUEtiapine FUMARATE 100 MG TABLET (FP) PO SCH (22:09)
[2018-04-23] MEDS: ATORVASTATIN CA 20 MG TABLET (FP) PO SCH (22:09)
[2018-04-23] MEDS: THIAMINE HCL 100 MG TABLET (FP) PO SCH (22:10)
[2018-04-24] MEDS: chlordiazePOXIDE HCL 25 MG CAPSULE PO SCH ×4 (06:01→22:40)
[2018-04-24] MEDS: ASPIRIN COATED 81 MG TABLET.EC PO SCH (10:09)
[2018-04-24] MEDS: SERTRALINE HCL 50 MG TABLET (FP) PO SCH (10:09)
[2018-04-24] MEDS: amLODIPine BESYLATE 10 MG TABLET (FP) PO SCH (10:09)
[2018-04-24] MEDS: HYDROCHLOROTHIAZIDE 25 MG TABLET (FP) PO SCH (10:09)
[2018-04-24] MEDS: BUDESONIDE/FORMETEROL FUMARATE 160/4.5 mcg INHALER IH SCH ×2 (10:10→22:40)
[2018-04-24] MEDS: TIOTROPIUM BROMIDE 2.5 MCG (SPIRIVA) RESPIMAT INHALER IH SCH (10:10)
[2018-04-24 10:16] LABS: HEMATOCRIT 41.7 % (32.4-45.2); HEMOGLOBIN 13.2 GM/dL (10.7-15.3); MCH 27.3 pg (25.7-33.7); MCHC 31.5 g/dl (32.0-36.0); MEAN CELL VOLUME 86.7 fl (80-96); MEAN PLT VOLUME 8.6 fl (7.5-11.1); PLATELET COUNT 238 K/MM3 (134-434); RBC 4.81 M/mm3 (3.60-5.2); RDW 14.5 % (11.6-15.6); WHITE BLOOD COUNT 3.6 K/mm3 (4.0-10.0)
[2018-04-24 10:30] LABS: ALBUMIN 3.7 g/dl (3.4-5.0); ALK PHOS 131 U/L (45-117); ANION GAP 5 MMOL/L (8-16); BILIRUBIN,TOTAL 0.2 mg/dL (0.2-1); BLOOD UREA NITROGEN 25 mg/dL (7-18); CALCIUM 9.5 mg/dL (8.5-10.1); CHLORIDE 107 mmol/L (98-107); CO2 30 mmol/L (21-32); GLUCOSE,RANDOM 99 mg/dL (74-106); POTASSIUM 3.5 mmol/L (3.5-5.1); SGOT/AST 24 U/L (15-37); SGPT/ALT 24 U/L (13-61); SODIUM 142 mmol/L (136-145); TOT PROT 7.8 g/dl (6.4-8.2)
[2018-04-24] MEDS: PATIENT'S OWN MEDICATION (NON-FORMULARY) (Cephalexin [Keflex] 500 MG) PO SCH ×4 (11:00→22:40)
--- NOTE | 2018-04-24 12:44 | PN ---
[facility] CIWA - CIWA Score Nausea/Vomitin-No Nausea/No Vomiting Muscle Tremors: 3 Anxiety: 2 Agitation: 3 Paroxysmal Sweats: 2 Orientation: 0-Oriented Tacttile Disturbances: 0-None Auditory Disturbances: 0-None Visual Disturbances: 0-None Headache: 0-None Present CIWA-Ar Total Score: 10 S Progress Note (SOAP) Subjective: sweats mild shakes interrupted sleep agitation Objective: 04/24/18 12:43 Vital Signs Temperature 98.0 F 04/24/18 09:35 Pulse Rate 76 04/24/18 09:35 Respiratory Rate 16 04/24/18 09:35 Blood Pressure 118/66 04/24/18 09:35 O2 Sat by Pulse Oximetry (%) Laboratory Tests 04/24/18 04/24/18 05:45 05:45 WBC 3.6 L RBC 4.81 Hgb 13.2 Hct 41.7 MCV 86.7 MCH 27.3 MCHC 31.5 L RDW 14.5 Plt Count 238 MPV 8.6 Sodium 142 Potassium 3.5 Chloride 107 Carbon Dioxide 30 Anion Gap 5 L BUN 25 H Creatinine 1.0 Creat Clearance w eGFR 58.22 Random Glucose 99 Calcium 9.5 Total Bilirubin 0.2 AST 24 ALT 24 Alkaline Phosphatase 131 H Total Protein 7.8 Albumin 3.7 aaox3 ambulating no acute distress Assessment: 04/24/18 12:43 withdrawal sx Plan: continue detox increase fluids
[2018-04-24] MEDS: PRENATAL VITAMINS W/ FOLIC ACID TABLET (FP) PO SCH (13:00)
[2018-04-24] MEDS: THIAMINE HCL 100 MG TABLET (FP) PO SCH (22:40)
[2018-04-24] MEDS: ATORVASTATIN CA 20 MG TABLET (FP) PO SCH (22:40)
[2018-04-24] MEDS: QUEtiapine FUMARATE 100 MG TABLET (FP) PO SCH (22:40)
[2018-04-25] MEDS: chlordiazePOXIDE HCL 25 MG CAPSULE PO SCH ×2 (05:18→10:10)
[2018-04-25] MEDS: amLODIPine BESYLATE 10 MG TABLET (FP) PO SCH (10:10)
[2018-04-25] MEDS: PRENATAL VITAMINS W/ FOLIC ACID TABLET (FP) PO SCH (10:10)
[2018-04-25] MEDS: HYDROCHLOROTHIAZIDE 25 MG TABLET (FP) PO SCH (10:10)
[2018-04-25] MEDS: SERTRALINE HCL 50 MG TABLET (FP) PO SCH (10:10)
[2018-04-25] MEDS: ASPIRIN COATED 81 MG TABLET.EC PO SCH (10:10)
[2018-04-25] MEDS: TIOTROPIUM BROMIDE 2.5 MCG (SPIRIVA) RESPIMAT INHALER IH SCH (10:11)
[2018-04-25] MEDS: PATIENT'S OWN MEDICATION (NON-FORMULARY) (Cephalexin [Keflex] 500 MG) PO SCH ×4 (10:12→22:13)
[2018-04-25] MEDS: BUDESONIDE/FORMETEROL FUMARATE 160/4.5 mcg INHALER IH SCH ×2 (10:13→22:13)
--- NOTE | 2018-04-25 16:47 | PN ---
S CIWA - CIWA Score Nausea/Vomitin Muscle Tremors: 3 Anxiety: 3 Agitation: 3 Paroxysmal Sweats: 3 Orientation: 0-Oriented Tacttile Disturbances: 0-None Auditory Disturbances: 0-None Visual Disturbances: 0-None Headache: 0-None Present CIWA-Ar Total Score: 14 BHS Progress Note (SOAP) Subjective: sweats sleep disturbance Objective: 04/25/18 16:48 A & O x 3 Anxious slight tremors Vital Signs Temperature 98.4 F 04/25/18 14:00 Pulse Rate 78 04/25/18 14:00 Respiratory Rate 18 04/25/18 14:00 Blood Pressure 141/82 04/25/18 14:00 O2 Sat by Pulse Oximetry (%) Assessment: 04/25/18 16:49 withdrawal sx Plan: continue detox
[2018-04-25] MEDS: chlordiazePOXIDE 5 MG CAPSULE PO SCH ×2 (16:58→22:12)
[2018-04-25] MEDS: NICOTINE POLACRILEX 2 MG GUM BUC PRN ×2 (17:01→20:50)
[2018-04-25] MEDS: ALBUTEROL SO4 8 GM HFA INHALER IH PRN (19:05)
[2018-04-25] MEDS: THIAMINE HCL 100 MG TABLET (FP) PO SCH (22:13)
[2018-04-25] MEDS: ATORVASTATIN CA 20 MG TABLET (FP) PO SCH (22:13)
[2018-04-25] MEDS: QUEtiapine FUMARATE 100 MG TABLET (FP) PO SCH (22:13)
[2018-04-26] MEDS: chlordiazePOXIDE 5 MG CAPSULE PO SCH ×2 (05:46→10:41)
[2018-04-26] MEDS ORDERED: NICOTINE 14 MG/24 HOURS TOPICAL PATCH TD SCH (10:00)
[2018-04-26] MEDS: PATIENT'S OWN MEDICATION (NON-FORMULARY) (Cephalexin [Keflex] 500 MG) PO SCH ×4 (10:40→23:12)
[2018-04-26] MEDS: SERTRALINE HCL 50 MG TABLET (FP) PO SCH (10:41)
[2018-04-26] MEDS: amLODIPine BESYLATE 10 MG TABLET (FP) PO SCH (10:41)
[2018-04-26] MEDS: HYDROCHLOROTHIAZIDE 25 MG TABLET (FP) PO SCH (10:41)
[2018-04-26] MEDS: TIOTROPIUM BROMIDE 2.5 MCG (SPIRIVA) RESPIMAT INHALER IH SCH (10:42)
[2018-04-26] MEDS: PRENATAL VITAMINS W/ FOLIC ACID TABLET (FP) PO SCH (10:42)
[2018-04-26] MEDS: ASPIRIN COATED 81 MG TABLET.EC PO SCH (10:42)
[2018-04-26] MEDS: BUDESONIDE/FORMETEROL FUMARATE 160/4.5 mcg INHALER IH SCH ×2 (10:42→23:13)
--- NOTE | 2018-04-26 11:02 | PN ---
[facility] Progress Note (SOAP) Subjective: feeling better no tremor less sweat no gi distress sleep better at night Objective: 04/26/18 11:01 Vital Signs Temperature 97.6 F 04/26/18 09:53 Pulse Rate 78 04/26/18 09:53 Respiratory Rate 18 04/26/18 09:53 Blood Pressure 137/96 04/26/18 09:53 O2 Sat by Pulse Oximetry (%) Laboratory Last Values WBC 3.6 K/mm3 (4.0-10.0) L 04/24/18 05:45 RBC 4.81 M/mm3 (3.60-5.2) 04/24/18 05:45 Hgb 13.2 GM/dL (10.7-15.3) 04/24/18 05:45 Hct 41.7 % (32.4-45.2) 04/24/18 05:45 MCV 86.7 fl (80-96) 04/24/18 05:45 MCH 27.3 pg (25.7-33.7) 04/24/18 05:45 MCHC 31.5 g/dl (32.0-36.0) L 04/24/18 05:45 RDW 14.5 % (11.6-15.6) 04/24/18 05:45 Plt Count 238 K/MM3 (134-434) 04/24/18 05:45 MPV 8.6 fl (7.5-11.1) 04/24/18 05:45 Sodium 142 mmol/L (136-145) 04/24/18 05:45 Potassium 3.5 mmol/L (3.5-5.1) 04/24/18 05:45 Chloride 107 mmol/L (98-107) 04/24/18 05:45 Carbon Dioxide 30 mmol/L (21-32) 04/24/18 05:45 Anion Gap 5 MMOL/L (8-16) L 04/24/18 05:45 BUN 25 mg/dL (7-18) H 04/24/18 05:45 Creatinine 1.0 mg/dL (0.55-1.3) 04/24/18 05:45 Creat Clearance w eGFR 58.22 (>60) 04/24/18 05:45 Random Glucose 99 mg/dL (74-106) 04/24/18 05:45 Calcium 9.5 mg/dL (8.5-10.1) 04/24/18 05:45 Total Bilirubin 0.2 mg/dL (0.2-1) 04/24/18 05:45 AST 24 U/L (15-37) 04/24/18 05:45 ALT 24 U/L (13-61) 04/24/18 05:45 Alkaline Phosphatase 131 U/L (45-117) H 04/24/18 05:45 Total Protein 7.8 g/dl (6.4-8.2) 04/24/18 05:45 Albumin 3.7 g/dl (3.4-5.0) 04/24/18 05:45 RPR Titer Nonreactive (NONREACTIVE) 04/24/18 05:45 lab noted Assessment: 04/26/18 11:01 mild withdrawal sx Plan: continue detox
[2018-04-26] MEDS: NICOTINE POLACRILEX 2 MG GUM BUC PRN (11:29)
[2018-04-26] MEDS: chlordiazePOXIDE HCL 10 MG CAPSULE PO SCH ×2 (16:32→23:13)
[2018-04-26] MEDS: QUEtiapine FUMARATE 100 MG TABLET (FP) PO SCH (23:12)
[2018-04-26] MEDS: ATORVASTATIN CA 20 MG TABLET (FP) PO SCH (23:13)
[2018-04-26] MEDS: THIAMINE HCL 100 MG TABLET (FP) PO SCH (23:14)
[2018-04-27] MEDS: chlordiazePOXIDE HCL 10 MG CAPSULE PO SCH (05:34)
[2018-04-27] MEDS: NICOTINE POLACRILEX 2 MG GUM BUC PRN (05:54)
--- NOTE | 2018-04-27 09:19 | DS ---
[facility] Detox Discharge Summary Admission Date: 04/23/18 Discharge Date: 04/27/18 - History Present History: Alcohol Dependence - Physical Exam Results Vital Signs: Vital Signs Temperature 97.5 F L 04/27/18 06:44 Pulse Rate 76 04/27/18 06:44 Respiratory Rate 18 04/27/18 06:44 Blood Pressure 139/98 04/27/18 06:44 O2 Sat by Pulse Oximetry (%) - Treatment Hospital Course: Detox Protocol Followed, Detoxed Safely, Responded well, Discharged Condition Good, Rehab Referral Accepted - Medication Discharge Medications: Ambulatory Orders Elviteg/Cob/Emtri/Tenof Alafen [Genvoya Tablet] 1 each PO DAILY 04/25/17 Aspirin Coated [Ecotrin -] 81 mg PO DAILY #30 tablet.ec 08/01/17 Mometasone/Formoterol [Dulera 200 Mcg/5 Mcg Inhaler] 2 inh IH BID #1 hfa.aer.ad 08/01/17 Quetiapine Fumarate [Seroquel -] 200 mg PO BID #60 tablet 12/01/17 Sertraline HCl [Zoloft] 100 mg PO DAILY #30 tablet 12/01/17 Gabapentin [Neurontin -] 300 mg PO TID #90 capsule 12/15/17 Sertraline HCl [Zoloft -] 100 mg PO DAILY 04/23/18 Albuterol Sulfate Inhaler - [Ventolin HFA Inhaler -] 2 inh PO Q4H PRN #1 inh Amlodipine Besylate [Norvasc -] 10 mg PO DAILY #14 tablet 04/26/18 Atorvastatin Ca [Lipitor] 20 mg PO HS #30 tablet 04/26/18 Budesonide/Formeterol Fumarate [SYMBICORT 160/4.5mcg -] 1 puff IH BID #1 inhaler 04/26/18 Cephalexin [Keflex] 500 mg PO QID #20 capsule 04/26/18 Hydrochlorothiazide [Hctz -] 25 mg PO DAILY #30 tablet 04/26/18 Metoprolol Succinate [Toprol XL -] 50 mg PO DAILY #14 tab.sr.24h 04/26/18 Tiotropium Prospect [Spiriva] 1 inh IH DAILY #1 cap.w.dev 04/26/18 - Diagnosis (1) Alcohol dependence with uncomplicated withdrawal Current Visit: Yes Status: Chronic (2) History of syphilis Current Visit: No Status: Resolved (3) Substance-induced sleep disorder Current Visit: Yes Status: Acute (4) MDD (major depressive disorder) Current Visit: Yes Status: Chronic (5) Asthma Current Visit: Yes Status: Chronic Qualifiers: Asthma severity: mild Asthma persistence: intermittent Asthma complication type: uncomplicated Qualified Code(s): J45.20 - Mild intermittent asthma, uncomplicated (6) COPD (chronic obstructive pulmonary disease) Current Visit: Yes Status: Chronic Qualifiers: COPD type: emphysema Emphysema type: other Qualified Code(s): J43.8 - Other emphysema (7) Cocaine dependence Current Visit: Yes Status: Chronic Qualifiers: Substance use status: uncomplicated Qualified Code(s): F14.20 - Cocaine dependence, uncomplicated (8) Essential hypertension Current Visit: Yes Status: Chronic (9) GERD (gastroesophageal reflux disease) Current Visit: Yes Status: Chronic Qualifiers: Esophagitis presence: esophagitis presence not specified Qualified Code(s) : K21.9 - Gastro-esophageal reflux disease without esophagitis (10) HIV (human immunodeficiency virus infection) Current Visit: Yes Status: Chronic Qualifiers: HIV symptom status: unspecified Qualified Code(s): B20 - Human immunodeficiency virus [HIV] disease (11) Hypercholesterolemia Current Visit: Yes Status: Chronic (12) Murmur, cardiac Current Visit: No Status: Chronic (13) Nicotine dependence Current Visit: Yes Status: Chronic Qualifiers: Nicotine product type: cigarettes Substance use status: uncomplicated Qualified Code(s): F17.210 - Nicotine dependence, cigarettes, uncomplicated
[2018-04-27 09:29] VITALS: BP 147/96; PULSE 87; TEMP 98.9
== END 2018-04-27 09:52 | disposition home or self-care (01) | DRG 774 ==
LOC: YASAS 08:30 → Y6N 11:53
PROC: HZ2ZZZZ Detoxification Services for Substance Abuse Treatment (ICD-10-PCS; principal; 2018-04-23)
DX: F10.230 Alcohol dependence with withdrawal, uncomplicated (principal); F14.20 Cocaine dependence, uncomplicated; F17.210 Nicotine dependence, cigarettes, uncomplicated; F19.282 Other psychoactive substance dependence with psychoactive substance-induced sleep disorder; F33.9 Major depressive disorder, recurrent, unspecified; I10 Essential (primary) hypertension; B20 Human immunodeficiency virus [HIV] disease; J45.20 Mild intermittent asthma, uncomplicated; K21.9 Gastro-esophageal reflux disease without esophagitis; J43.8 Other emphysema; E78.00 Pure hypercholesterolemia, unspecified; R01.1 Cardiac murmur, unspecified; Z87.42 Personal history of other diseases of the female genital tract; Z91.013 Allergy to seafood; Z88.2 Allergy status to sulfonamides; Z88.8 Allergy status to other drugs, medicaments and biological substances
CPT/HCPCS: 36415; 80053; 85027; 86593

== ENCOUNTER 2018-06-20 08:11 | Inpatient (IN) | payer OTHER ==
--- NOTE | 2018-06-20 10:04 | HP ---
CIWA Score Nausea/Vomitin Muscle Tremors: 4-Moderate,w/Arms Extend Anxiety: 3 Agitation: 2 Paroxysmal Sweats: No Perspiration Orientation: 0-Oriented Tacttile Disturbances: 2-Mild Itch/Numbness/Burn Auditory Disturbances: 1-Very Mild Visual Disturbances: 1-Very Mild Sensitivity Headache: 2-Mild CIWA-Ar Total Score: 17 - Admission Criteria OASAS Guidelines: Admission for Medically Managed Detox: Requires at least one of the followin. CIWA greater than 12 2. Seizures within the past 24 hours 3. Delirium tremens within the past 24 hours 4. Hallucinations within the past 24 hours 5. Acute intervention needed for co occurring medical disorder 6. Acute intervention needed for co occurring psychiatric disorder 7. Severe withdrawal that cannot be handled at a lower level of care (continued vomiting, continued diarrhea, abnormal vital signs) requiring intravenous medication and/or fluids 8. Patient presents the following: CIWA greater than 12 Admission Criteria Met: Admission criteria met Admission ROS [facility] Chief Complaint: I've been drinking since I've been 16 - it's time to stop, I'm a mess, I can't do it anymore Allergies/Adverse Reactions: Allergies Allergy/AdvReac Type Severity Reaction Status Date / Time lisinopril Allergy Severe Swelling Verified 06/20/18 09:34 turkey Allergy Severe Rash Verified 06/20/18 09:34 Fish Containing Products Allergy Rash Verified 06/20/18 09:34 erythromycin base AdvReac Severe Rash Verified 06/20/18 09:34 sulfamethoxazole AdvReac Severe Rash Verified 06/20/18 09:34 [From Bactrim] trimethoprim [From Bactrim] AdvReac Severe Rash Verified 06/20/18 09:34 History of Present Illness: 53 yo woman here for detox from alcohol, also using crack. Denies seizures or black outs but drinks first thing in the morning "I'm at the liquor store when it opens at 8am"). Patient also smokes crack and is HIV+. Last time here in 01/30. Exam Limitations: Clinical Condition - Ebola screening Have you traveled outside of the country in the last 21 days: No (N) Have you had contact with anyone from an Ebola affected area: No Have you been sick,other than usual withdrawal symptoms: No Do you have a fever: No - Review of Systems Constitutional: Chills, Loss of Appetite, Malaise EENT: reports: No Symptoms Reported Respiratory: reports: No Symptoms reported Cardiac: reports: No Symptoms Reported GI: reports: Nausea, Indigestion, Abdominal cramping : reports: Frequency Musculoskeletal: reports: No Symptoms Reported Integumentary: reports: No Symptoms Reported Neuro: reports: Headache, Tremors Endocrine: reports: No Symptoms Reported Hematology: reports: No Symptoms Reported Psychiatric: reports: Judgement Intact, Mood/Affect Appropiate, Anxious Other Systems: Reviewed and Negative Patient History - Patient Medical History Hx Anemia: No Hx Asthma: Yes (on multiple inhalers) Hx Chronic Obstructive Pulmonary Disease (COPD): Yes (spiriva) Hx Cancer: No Hx Cardiac Disorders: No Hx Congestive Heart Failure: No Hx Hypertension: Yes (on med) Hx Hypercholesterolemia: Yes (on med) Hx Pacemaker: No HX Cerebrovascular Accident: No Hx Seizures: No Hx Dementia: No Hx Diabetes: No Hx Gastrointestinal Disorders: Yes (acid reflux) Hx Liver Disease: No Hx Genitourinary Disorders: No Hx Sexually Transmitted Disorders: Yes (treated for syphilis) Hx Renal Disease (ESRD): No Hx Thyroid Disease: No Hx Human Immunodeficiency Virus (HIV): Yes (ON GENVOYA , VL <20 last mediction 6 months ago) Hx Hepatitis C: No Hx Depression: Yes (on meds) Hx Suicide Attempt: Yes (at age 11 - took pill overdose - hospitalized) Hx Bipolar Disorder: Yes Hx Schizophrenia: Yes (hears voices) - Patient Surgical History Past Surgical History: Yes Hx Neurologic Surgery: No Hx Cataract Extraction: No Hx Cardiac Surgery: No Hx Lung Surgery: No Hx Breast Surgery: No Hx Breast Biopsy: No Hx Abdominal Surgery: No Hx Appendectomy: No Hx Cholecystectomy: No Hx Genitourinary Surgery: No Hx Section: No Hx Orthopedic Surgery: No Hx Hysterectomy: No Other Surgical History: ectopic at age 30 Anesthesia Reaction: No - PPD History Previous Implant?: Yes Documented Results: Negative w/proof Implanted On Prior [facility] Admission?: Yes Date: 09/15/17 Results: 0 mm PPD to be Administered?: No - Reproductive History Patient is a Female of Child Bearing Age (11 -55 yrs old): Yes Last Menstrual Period: 08/12/13 - Smoking Cessation Smoking history: Current every day smoker Have you smoked in the past 12 months: Yes Aproximately how many cigarettes per day: 20 Cigars Per Day: 0 Hx Chewing Tobacco Use: No Initiated information on smoking cessation: Yes 'Breaking Loose' booklet given: 06/20/18 (give on floor) - Substance & Tx. History Hx Alcohol Use: Yes Hx Substance Use: Yes Substance Use Type: Alcohol, Cocaine Hx Substance Use Treatment: Yes (detox, rehab) - Substances Abused Alcohol Route: Oral Frequency: Daily Amount used: 2 pints VODKA + three 24OZ BEER Age of first use: 16 Date of Last Use: 06/20/18 Cocaine Route: Smoking Frequency: Daily Amount used: $300 Age of first use: 18 Date of Last Use: 06/19/18 Family Disease History - Family Disease History Family Disease History: Diabetes: Father (alcohol,), Mother (alcohol, ), Heart Disease: Father, Mother, Sister (3 sisters - one [place]), CA: Father, Mother, Respiratory: Father, Other: Brother (4 brothers - one murdered), Sister, Son (one - 28 - healthy), Daughter (one - age 24 - healthy) Admission Physical Exam [facility] - Vital Signs Vital Signs: Vital Signs - 24 hr 06/20/18 08:42 Temperature 98.7 F Pulse Rate 106 H Respiratory 18 Rate Blood Pressure 142/99 - Physical General Appearance: Yes: Nourished, Appropriately Dressed, Moderate Distress, Irritable, Anxious HEENTM: Yes: EOMI, Hearing grossly Normal, Normocephalic, Normal Voice, Pharynx Normal Respiratory: Yes: Normal Breath Sounds, No Respiratory Distress Neck: Yes: No masses,lesions,Nodules, Supple Breast: Yes: Breast Exam Deferred Cardiology: Yes: Regular Rhythm, Regular Rate Abdominal: Yes: Soft Genitourinary: Yes: Frequency Back: Yes: Normal Inspection Musculoskeletal: Yes: full range of Motion, Gait Steady Extremities: Yes: Normal Inspection, Normal Range of Motion, Non-Tender Neurological: Yes: Fully Oriented, Alert, Motor Strength 5/5, Normal Mood/Affect , Normal Response Integumentary: Yes: Normal Color, Warm, Rash (mild rash on lower back - states she breaks out from eating spicy food) Lymphatic: Yes: Within Normal Limits - Diagnostic (1) Alcohol dependence with uncomplicated withdrawal Current Visit: Yes Status: Chronic (2) Rash Current Visit: Yes Status: Chronic Comment: mild, low back (3) Asthma Current Visit: Yes Status: Chronic Qualifiers: Asthma severity: mild Asthma persistence: intermittent Asthma complication type: uncomplicated Qualified Code(s): J45.20 - Mild intermittent asthma, uncomplicated (4) COPD (chronic obstructive pulmonary disease) Current Visit: Yes Status: Chronic Qualifiers: COPD type: emphysema Emphysema type: other Qualified Code(s): J43.8 - Other emphysema (5) Cocaine dependence Current Visit: Yes Status: Chronic Qualifiers: Substance use status: uncomplicated Qualified Code(s): F14.20 - Cocaine dependence, uncomplicated (6) Essential hypertension Current Visit: Yes Status: Chronic (7) GERD (gastroesophageal reflux disease) Current Visit: Yes Status: Chronic Qualifiers: Esophagitis presence: esophagitis presence not specified Qualified Code(s) : K21.9 - Gastro-esophageal reflux disease without esophagitis (8) HIV (human immunodeficiency virus infection) Current Visit: Yes Status: Chronic Qualifiers: HIV symptom status: asymptomatic Qualified Code(s): Z21 - Asymptomatic human immunodeficiency virus [HIV] infection status (9) Hypercholesterolemia Current Visit: Yes Status: Chronic (10) Nicotine dependence Current Visit: Yes Status: Chronic Qualifiers: Nicotine product type: cigarettes Substance use status: uncomplicated Qualified Code(s): F17.210 - Nicotine dependence, cigarettes, uncomplicated (11) History of syphilis Current Visit: Yes Status: Resolved Comment: states treated Cleared for Admission S - Detox or Rehab [facility] Level of Care: Medically Managed Detox Regimen/Protocol: Librium [facility] Breath Alcohol Content Breath Alcohol Content: 0.016 Urine Pregancy Test - Result Urine Test Results: Negative - NO Line Present Urine Drug Screen - Results Drug Screen Negative: No Urine Drug Screen Results: [facility]-Cocaine Inpatient Rehab Admission - Rehab Decision to Admit Inpatient rehab admission?: No
[2018-06-20] MEDS ORDERED: MENTHOL/PHENOL 1 EACH UD MM PRN (10:46)
[2018-06-20] MEDS ORDERED: MAGNESIUM HYDROX 2400MG/30ML ORAL SUSPENSION 30 ML CUP PO PRN (10:46)
[2018-06-20] MEDS ORDERED: BISMUTH SUBSALICYLATE 524 MG/30 ML UD PO PRN (10:46)
[2018-06-20] MEDS ORDERED: chlordiazePOXIDE HCL 25 MG CAPSULE PO PRN (10:46)
[2018-06-20] MEDS ORDERED: MELATONIN 5 MG TABLETS PO PRN (10:46)
[2018-06-20] MEDS ORDERED: METHOCARBAMOL 500 MG TABLET PO PRN (10:46)
[2018-06-20] MEDS ORDERED: hydrOXYzine PAMOATE 25 MG CAPSULE (FP) PO PRN (10:46)
[2018-06-20] MEDS ORDERED: MAG HYDROX/AL HYDROX/SIMETH 30 ML UNIT-DOSE CUP PO PRN (10:46)
[2018-06-20] MEDS ORDERED: ACETAMINOPHEN 325 MG TABLET (FP) PO PRN ×2 (10:46)
[2018-06-20] MEDS ORDERED: MAGNESIUM CITRATE 300 ML BOTTLE PO PRN (10:46)
[2018-06-20] MEDS ORDERED: RANITIDINE HCL 150 MG TABLET (FP) PO PRN (10:47)
[2018-06-20] MEDS ORDERED: ALBUTEROL SO4 8 GM HFA INHALER IH PRN (10:47)
[2018-06-20] MEDS ORDERED: HYDROCORTISONE 1% TOPICAL OINT 30 GM TUBE TP PRN (10:52)
[2018-06-20] MEDS ORDERED: chlordiazePOXIDE HCL 25 MG CAPSULE PO ONE (13:15)
[2018-06-20] MEDS: HYDROCHLOROTHIAZIDE 25 MG TABLET (FP) PO SCH (14:25)
[2018-06-20] MEDS: amLODIPine BESYLATE 10 MG TABLET (FP) PO SCH (14:26)
[2018-06-20] MEDS: chlordiazePOXIDE HCL 25 MG CAPSULE PO SCH ×2 (18:12→22:52)
[2018-06-20] MEDS ORDERED: BUDESONIDE/FORMETEROL FUMARATE 160/4.5 mcg INHALER IH SCH (22:00)
[2018-06-20] MEDS: THIAMINE HCL 100 MG TABLET (FP) PO SCH (22:52)
[2018-06-20] MEDS: ATORVASTATIN CA 20 MG TABLET (FP) PO SCH (22:52)
[2018-06-21] MEDS: chlordiazePOXIDE HCL 25 MG CAPSULE PO SCH ×4 (05:21→22:36)
[2018-06-21] MEDS: ASPIRIN COATED 81 MG TABLET.EC PO SCH (10:32)
[2018-06-21] MEDS: HYDROCHLOROTHIAZIDE 25 MG TABLET (FP) PO SCH (10:32)
[2018-06-21] MEDS: amLODIPine BESYLATE 10 MG TABLET (FP) PO SCH (10:32)
[2018-06-21] MEDS: PRENATAL VITAMINS W/ FOLIC ACID TABLET (FP) PO SCH (10:32)
[2018-06-21 10:51] LABS: ALBUMIN 3.5 g/dl (3.4-5.0); ALK PHOS 122 U/L (45-117); ANION GAP 4 MMOL/L (8-16); BILIRUBIN,TOTAL 0.5 mg/dL (0.2-1); BLOOD UREA NITROGEN 11 mg/dL (7-18); CHLORIDE 105 mmol/L (98-107); CO2 31 mmol/L (21-32); CREATININE 0.9 mg/dL (0.55-1.3); GLUCOSE,RANDOM 84 mg/dL (74-106); SGOT/AST 16 U/L (15-37); SGPT/ALT 18 U/L (13-61); SODIUM 140 mmol/L (136-145); TOT PROT 7.6 g/dl (6.4-8.2)
[2018-06-21 11:35] LABS: HEMATOCRIT 39.6 % (32.4-45.2); HEMOGLOBIN 13.3 GM/dL (10.7-15.3); MCH 28.8 pg (25.7-33.7); MCHC 33.6 g/dl (32.0-36.0); MEAN CELL VOLUME 85.7 fl (80-96); MEAN PLT VOLUME 8.1 fl (7.5-11.1); PLATELET COUNT 231 K/MM3 (134-434); RBC 4.62 M/mm3 (3.60-5.2); RDW 14.2 % (11.6-15.6); WHITE BLOOD COUNT 3.3 K/mm3 (4.0-10.0)
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
[2018-06-21] MEDS: SERTRALINE HCL 50 MG TABLET (FP) PO SCH (14:42)
[2018-06-21] MEDS ORDERED: ALBUTEROL SO4 8 GM HFA INHALER IH PRN (17:33)
--- NOTE | 2018-06-21 17:36 | PN ---
S CIWA - CIWA Score Nausea/Vomitin Muscle Tremors: 4-Moderate,w/Arms Extend Anxiety: 3 Agitation: 3 Paroxysmal Sweats: 3 Orientation: 0-Oriented Tacttile Disturbances: 1-Very Mild Itch/Numbness Auditory Disturbances: 0-None Visual Disturbances: 0-None Headache: 1-Very Mild CIWA-Ar Total Score: 17 S Progress Note (SOAP) Subjective: Sweating, chills, tremor Objective: 06/21/18 17:31 Last Vital Signs Temp Pulse Resp BP Pulse Ox 97.8 F 97 H 18 147/73 06/21/18 14:17 06/21/18 14:17 06/21/18 14:17 06/21/18 14:17 Laboratory Tests 06/21/18 06/21/18 08:00 08:00 WBC 3.3 L RBC 4.62 Hgb 13.3 Hct 39.6 MCV 85.7 MCH 28.8 MCHC 33.6 RDW 14.2 Plt Count 231 MPV 8.1 Sodium 140 Potassium 3.0 L Chloride 105 Carbon Dioxide 31 Anion Gap 4 L BUN 11 Creatinine 0.9 Creat Clearance w eGFR > 60 Random Glucose 84 Calcium 9.0 Total Bilirubin 0.5 AST 16 ALT 18 Alkaline Phosphatase 122 H Total Protein 7.6 Albumin 3.5 Labs reviewed: K 3.0 Assessment: 06/21/18 17:34 Withdrawal symptoms Noted with hypokalemia Plan: Continue detox Encouraged PO water hydration Hypokalemia: K Dur 40 Meq PO x 2 doses (give at least 4 hours apart) then K Dur 10 meq PO daily start in AM, repeat K+ level in AM
[2018-06-21] MEDS: POTASSIUM CHLORIDE TABS 20 MEQ TABLET.ER (FP) PO ONE (18:05)
[2018-06-21] MEDS: THIAMINE HCL 100 MG TABLET (FP) PO SCH (21:53)
[2018-06-21] MEDS: QUEtiapine FUMARATE 100 MG TABLET (FP) PO SCH (21:53)
[2018-06-21] MEDS: ATORVASTATIN CA 20 MG TABLET (FP) PO SCH (21:53)
[2018-06-21] MEDS ORDERED: POTASSIUM CHLORIDE TABS 20 MEQ TABLET.ER (FP) PO ONE (22:00)
[2018-06-21] MEDS ORDERED: QUEtiapine FUMARATE 300 MG TABLET PO SCH (22:00)
[2018-06-22] MEDS: chlordiazePOXIDE HCL 25 MG CAPSULE PO SCH ×2 (05:49→10:09)
[2018-06-22] MEDS ORDERED: POTASSIUM CHLORIDE TABS 10 MEQ TABLET.ER (FP) PO SCH (10:00)
[2018-06-22] MEDS ORDERED: POTASSIUM CHLORIDE TABS 20 MEQ TABLET.ER (FP) PO SCH (10:00)
[2018-06-22] MEDS: amLODIPine BESYLATE 10 MG TABLET (FP) PO SCH (10:09)
[2018-06-22] MEDS: HYDROCHLOROTHIAZIDE 25 MG TABLET (FP) PO SCH (10:09)
[2018-06-22] MEDS: PRENATAL VITAMINS W/ FOLIC ACID TABLET (FP) PO SCH (10:09)
[2018-06-22] MEDS: SERTRALINE HCL 50 MG TABLET (FP) PO SCH (10:09)
[2018-06-22] MEDS: ASPIRIN COATED 81 MG TABLET.EC PO SCH (10:09)
[2018-06-22] MEDS: BUDESONIDE/FORMETEROL FUMARATE 160/4.5 mcg INHALER IH SCH ×4 (10:37→22:06)
[2018-06-22] MEDS: TIOTROPIUM BROMIDE 2.5 MCG (SPIRIVA) RESPIMAT INHALER IH SCH ×2 (10:38→12:13)
--- NOTE | 2018-06-22 11:55 | PN ---
[facility] CIWA - CIWA Score Nausea/Vomitin-No Nausea/No Vomiting Muscle Tremors: 3 Anxiety: 3 Agitation: 3 Paroxysmal Sweats: 2 Orientation: 0-Oriented Tacttile Disturbances: 0-None Auditory Disturbances: 0-None Visual Disturbances: 0-None Headache: 0-None Present CIWA-Ar Total Score: 11 S Progress Note (SOAP) Subjective: sweats interrupted sleep agitation Objective: 06/22/18 11:53 Vital Signs Temperature 96.6 F L 06/22/18 09:41 Pulse Rate 89 06/22/18 09:41 Respiratory Rate 18 06/22/18 09:41 Blood Pressure 122/87 06/22/18 09:41 O2 Sat by Pulse Oximetry (%) Laboratory Tests 06/21/18 06/21/18 06/21/18 08:00 08:00 08:00 WBC 3.3 L RBC 4.62 Hgb 13.3 Hct 39.6 MCV 85.7 MCH 28.8 MCHC 33.6 RDW 14.2 Plt Count 231 MPV 8.1 Sodium 140 Potassium 3.0 L Chloride 105 Carbon Dioxide 31 Anion Gap 4 L BUN 11 Creatinine 0.9 Creat Clearance w eGFR > 60 Random Glucose 84 Calcium 9.0 Total Bilirubin 0.5 AST 16 ALT 18 Alkaline Phosphatase 122 H Total Protein 7.6 Albumin 3.5 RPR Titer Nonreactive 06/22/18 08:00 WBC RBC Hgb Hct MCV MCH MCHC RDW Plt Count MPV Sodium Potassium 4.0 Chloride Carbon Dioxide Anion Gap BUN Creatinine Creat Clearance w eGFR Random Glucose Calcium Total Bilirubin AST ALT Alkaline Phosphatase Total Protein Albumin RPR Titer labs noted; potassium has improved aaox3 ambulating no acute distress Assessment: 06/22/18 11:54 mild withdrawals Plan: increase fluids continue detox d/c scheduled potassium pt potassium improved last lab result 4.0
[2018-06-22] MEDS ORDERED: chlordiazePOXIDE HCL 10 MG CAPSULE PO PRN (17:00)
[2018-06-22] MEDS: chlordiazePOXIDE HCL 10 MG CAPSULE PO SCH ×2 (17:26→22:07)
[2018-06-22] MEDS: THIAMINE HCL 100 MG TABLET (FP) PO SCH (22:06)
[2018-06-22] MEDS: QUEtiapine FUMARATE 100 MG TABLET (FP) PO SCH (22:07)
[2018-06-22] MEDS: ATORVASTATIN CA 20 MG TABLET (FP) PO SCH (22:07)
[2018-06-22] MEDS: NICOTINE POLACRILEX 4 MG GUM BUC PRN (22:49)
[2018-06-23] MEDS: chlordiazePOXIDE HCL 10 MG CAPSULE PO SCH ×3 (06:08→17:38)
[2018-06-23] MEDS: amLODIPine BESYLATE 10 MG TABLET (FP) PO SCH (10:32)
[2018-06-23] MEDS: POTASSIUM CHLORIDE TABS 20 MEQ TABLET.ER (FP) PO ONE (10:32)
[2018-06-23] MEDS: HYDROCHLOROTHIAZIDE 25 MG TABLET (FP) PO SCH (10:32)
[2018-06-23] MEDS: SERTRALINE HCL 50 MG TABLET (FP) PO SCH (10:32)
[2018-06-23] MEDS: PRENATAL VITAMINS W/ FOLIC ACID TABLET (FP) PO SCH (10:32)
[2018-06-23] MEDS: TIOTROPIUM BROMIDE 2.5 MCG (SPIRIVA) RESPIMAT INHALER IH SCH (10:33)
[2018-06-23] MEDS: ASPIRIN COATED 81 MG TABLET.EC PO SCH (10:33)
[2018-06-23] MEDS: BUDESONIDE/FORMETEROL FUMARATE 160/4.5 mcg INHALER IH SCH ×2 (10:33→21:18)
--- NOTE | 2018-06-23 11:47 | PN ---
[facility] Progress Note (SOAP) Subjective: feeling better anxiety little sweats Objective: 06/23/18 11:45 Vital Signs Temperature 98.3 F 06/23/18 09:14 Pulse Rate 92 H 06/23/18 09:14 Respiratory Rate 18 06/23/18 09:14 Blood Pressure 135/80 06/23/18 09:14 O2 Sat by Pulse Oximetry (%) aaox3 ambulating no acute distress Assessment: 06/23/18 11:45 mild withdrawal sx Plan: continue detox increase fluids
[2018-06-23] MEDS: NICOTINE POLACRILEX 4 MG GUM BUC PRN ×3 (13:21→21:15)
[2018-06-23] MEDS: ATORVASTATIN CA 20 MG TABLET (FP) PO SCH (21:16)
[2018-06-23] MEDS: QUEtiapine FUMARATE 100 MG TABLET (FP) PO SCH (21:16)
[2018-06-23] MEDS: THIAMINE HCL 100 MG TABLET (FP) PO SCH (21:17)
[2018-06-24] MEDS: chlordiazePOXIDE HCL 10 MG CAPSULE PO SCH (05:33)
[2018-06-24] MEDS: NICOTINE POLACRILEX 4 MG GUM BUC PRN (07:45)
--- NOTE | 2018-06-24 09:19 | DS ---
[facility] Detox Discharge Summary Admission Date: 06/20/18 Discharge Date: 06/24/18 - History Present History: Alcohol Dependence, Cocaine Dependence - Physical Exam Results Vital Signs: Vital Signs Temperature 97.9 F 06/24/18 07:23 Pulse Rate 77 06/24/18 07:23 Respiratory Rate 18 06/24/18 07:23 Blood Pressure 151/99 06/24/18 07:23 O2 Sat by Pulse Oximetry (%) - Treatment Hospital Course: Detox Protocol Followed, Detoxed Safely, Responded well, Discharged Condition Good, Rehab Referral Accepted - Medication Discharge Medications: Ambulatory Orders Elviteg/Cob/Emtri/Tenof Alafen [Genvoya Tablet] 1 each PO DAILY 04/25/17 Aspirin Coated [Ecotrin -] 81 mg PO DAILY #30 tablet.ec 08/01/17 Mometasone/Formoterol [Dulera 200 Mcg/5 Mcg Inhaler] 2 inh IH BID #1 hfa.aer.ad 08/01/17 Sertraline HCl [Zoloft] 100 mg PO DAILY #30 tablet 12/01/17 Gabapentin [Neurontin -] 300 mg PO TID #90 capsule 12/15/17 Albuterol Sulfate Inhaler - [Ventolin HFA Inhaler -] 2 inh PO Q4H PRN #1 inh Amlodipine Besylate [Norvasc -] 10 mg PO DAILY #14 tablet 04/26/18 Atorvastatin Ca [Lipitor] 20 mg PO HS #30 tablet 04/26/18 Budesonide/Formeterol Fumarate [SYMBICORT 160/4.5mcg -] 1 puff IH BID #1 inhaler 04/26/18 Hydrochlorothiazide [Hctz -] 25 mg PO DAILY #30 tablet 04/26/18 Metoprolol Succinate [Toprol XL -] 50 mg PO DAILY #14 tab.sr.24h 04/26/18 Tiotropium [place] [Spiriva] 1 inh IH DAILY #1 cap.w.dev 04/26/18 Quetiapine Fumarate [Seroquel -] 300 mg PO HS 06/20/18 Ranitidine HCl [Zantac] 150 mg PO BID 06/20/18 - Diagnosis (1) Alcohol dependence with uncomplicated withdrawal Current Visit: Yes Status: Chronic (2) Cocaine dependence Current Visit: Yes Status: Chronic Qualifiers: Substance use status: uncomplicated Qualified Code(s): F14.20 - Cocaine dependence, uncomplicated (3) Substance-induced sleep disorder Current Visit: Yes Status: Acute (4) Asthma Current Visit: Yes Status: Chronic Qualifiers: Asthma severity: mild Asthma persistence: intermittent Asthma complication type: uncomplicated Qualified Code(s): J45.20 - Mild intermittent asthma, uncomplicated (5) COPD (chronic obstructive pulmonary disease) Current Visit: Yes Status: Chronic Qualifiers: COPD type: emphysema Emphysema type: other Qualified Code(s): J43.8 - Other emphysema (6) Essential hypertension Current Visit: Yes Status: Chronic (7) GERD (gastroesophageal reflux disease) Current Visit: Yes Status: Chronic Qualifiers: Esophagitis presence: without esophagitis Qualified Code(s): K21.9 - Gastro -esophageal reflux disease without esophagitis (8) HIV (human immunodeficiency virus infection) Current Visit: Yes Status: Chronic Qualifiers: HIV symptom status: asymptomatic Qualified Code(s): Z21 - Asymptomatic human immunodeficiency virus [HIV] infection status (9) Hypercholesterolemia Current Visit: Yes Status: Chronic (10) Mood disorder Current Visit: Yes Status: Chronic (11) Nicotine dependence Current Visit: Yes Status: Chronic Qualifiers: Nicotine product type: cigarettes Substance use status: uncomplicated Qualified Code(s): F17.210 - Nicotine dependence, cigarettes, uncomplicated (12) Rash Current Visit: Yes Status: Chronic (13) History of syphilis Current Visit: Yes Status: Resolved (14) Substance-induced sleep disorder Current Visit: No Status: Acute (15) Murmur, cardiac Current Visit: No Status: Chronic (16) MDD (major depressive disorder) Current Visit: No Status: Ruled-out - AMA Did Patient Leave Against Medical Advice: No (pt referred to [facility] rehab)
[2018-06-24 09:44] VITALS: BP 141/94; PULSE 94; TEMP 98.4
[2018-06-24] MEDS: amLODIPine BESYLATE 10 MG TABLET (FP) PO SCH (10:08)
[2018-06-24] MEDS: HYDROCHLOROTHIAZIDE 25 MG TABLET (FP) PO SCH (10:08)
[2018-06-24] MEDS: ASPIRIN COATED 81 MG TABLET.EC PO SCH (10:08)
[2018-06-24] MEDS: PRENATAL VITAMINS W/ FOLIC ACID TABLET (FP) PO SCH (10:08)
[2018-06-24] MEDS: TIOTROPIUM BROMIDE 2.5 MCG (SPIRIVA) RESPIMAT INHALER IH SCH (10:08)
[2018-06-24] MEDS: BUDESONIDE/FORMETEROL FUMARATE 160/4.5 mcg INHALER IH SCH (10:08)
[2018-06-24] MEDS: SERTRALINE HCL 50 MG TABLET (FP) PO SCH (10:08)
== END 2018-06-24 11:40 | disposition home or self-care (01) | DRG 774 ==
LOC: YASAS 08:11 → Y3N 12:48 → Y6N 13:38
PROVIDERS: ADMIT Surgery; ATTEND Surgery
PROC: HZ2ZZZZ Detoxification Services for Substance Abuse Treatment (ICD-10-PCS; principal; 2018-06-20)
DX: F10.230 Alcohol dependence with withdrawal, uncomplicated (principal); F14.20 Cocaine dependence, uncomplicated; F17.210 Nicotine dependence, cigarettes, uncomplicated; F19.282 Other psychoactive substance dependence with psychoactive substance-induced sleep disorder; F39 Unspecified mood [affective] disorder; I10 Essential (primary) hypertension; J45.20 Mild intermittent asthma, uncomplicated; J43.8 Other emphysema; K21.9 Gastro-esophageal reflux disease without esophagitis; B20 Human immunodeficiency virus [HIV] disease; E78.5 Hyperlipidemia, unspecified; R21 Rash and other nonspecific skin eruption; R01.1 Cardiac murmur, unspecified; E87.6 Hypokalemia; Z91.013 Allergy to seafood; Z88.2 Allergy status to sulfonamides; Z88.8 Allergy status to other drugs, medicaments and biological substances; Z87.42 Personal history of other diseases of the female genital tract; Z91.5 Personal history of self-harm
CPT/HCPCS: 36415; 80053; 84132; 85027; 86593

== ENCOUNTER 2018-08-14 09:50 | Inpatient (IN) | payer OTHER ==
[2018-08-14 10:19] VITALS: BMI 28.8
--- NOTE | 2018-08-14 11:13 | HP ---
CIWA Score Nausea/Vomitin Muscle Tremors: 3 Anxiety: 2 Agitation: 2 Paroxysmal Sweats: 1-Minimal Palms Moist Orientation: 0-Oriented Tacttile Disturbances: 1-Very Mild Itch/Numbness Auditory Disturbances: 1-Very Mild Visual Disturbances: 0-None Headache: 2-Mild CIWA-Ar Total Score: 14 - Admission Criteria OASAS Guidelines: Admission for Medically Managed Detox: Requires at least one of the followin. CIWA greater than 12 2. Seizures within the past 24 hours 3. Delirium tremens within the past 24 hours 4. Hallucinations within the past 24 hours 5. Acute intervention needed for co occurring medical disorder 6. Acute intervention needed for co occurring psychiatric disorder 7. Severe withdrawal that cannot be handled at a lower level of care (continued vomiting, continued diarrhea, abnormal vital signs) requiring intravenous medication and/or fluids 8. Admission ROS [facility] Chief Complaint: i an here for detox from alcohol,cocaine Allergies/Adverse Reactions: Allergies Allergy/AdvReac Type Severity Reaction Status Date / Time lisinopril Allergy Severe Swelling Verified 08/14/18 10:11 turkey Allergy Severe Rash Verified 08/14/18 10:11 Fish Containing Products Allergy Rash Verified 08/14/18 10:11 erythromycin base AdvReac Severe Rash Verified 08/14/18 10:11 sulfamethoxazole AdvReac Severe Rash Verified 08/14/18 10:11 [From Bactrim] trimethoprim [From Bactrim] AdvReac Severe Rash Verified 08/14/18 10:11 History of Present Illness: this 53 years old female with alcohol and cocaine dependence,seeking detox, withdrawal symptom [facility] multiple admissions in detox,last treatment [facility] 06/20/18 to 06/14/18 keep relapsing history of hypertension alcohol related syncope nicotine dependence 1 pack/day,requesting nicotine gum anxiety,depression, insomnia longest sobriety 4 years plan to go to rehab after detox ectopic in 1997 right lap Exam Limitations: No Limitations - Ebola screening Have you traveled outside of the country in the last 21 days: No Have you had contact with anyone from an Ebola affected area: No Do you have a fever: No - Review of Systems Constitutional: Loss of Appetite, Malaise, Night Sweats, Changes in sleep EENT: reports: Nose Congestion Respiratory: reports: No Symptoms reported Cardiac: reports: No Symptoms Reported GI: reports: Nausea, Poor Appetite, Abdominal cramping : reports: No Symptoms Reported Musculoskeletal: reports: Back Pain, Muscle Pain Integumentary: reports: Dryness Neuro: reports: Headache, Tremors Endocrine: reports: No Symptoms Reported Hematology: reports: No Symptoms Reported Psychiatric: reports: No Sypmtoms Reported, Judgement Intact, Mood/Affect Appropiate, Orientated x3, Anxious, Disorientated, other (bipolar disorde with depression) Other Systems: Reviewed and Negative Patient History - Patient Medical History Hx Anemia: No Hx Asthma: Yes (on multiple inhalers) Hx Chronic Obstructive Pulmonary Disease (COPD): Yes (spiriva) Hx Cancer: No Hx Cardiac Disorders: No Hx Congestive Heart Failure: No Hx Hypertension: Yes (on med) Hx Hypercholesterolemia: Yes (on med) Hx Pacemaker: No HX Cerebrovascular Accident: No Hx Seizures: No Hx Dementia: No Hx Diabetes: No Hx Gastrointestinal Disorders: Yes (acid reflux) Hx Liver Disease: No Hx Genitourinary Disorders: No Hx Sexually Transmitted Disorders: Yes (treated for syphilis) Hx Renal Disease (ESRD): No Hx Thyroid Disease: No Hx Human Immunodeficiency Virus (HIV): Yes (ON GENVOYA , VL <20 last mediction 6 months ago) Hx Hepatitis C: No Hx Depression: Yes (on meds) Hx Suicide Attempt: Yes (at age 11 - took pill overdose - hospitalized) Hx Bipolar Disorder: Yes Hx Schizophrenia: No (hears voices) Other Medical History: no suicidal,no homicidal - Patient Surgical History Past Surgical History: Yes Hx Neurologic Surgery: No Hx Cataract Extraction: No Hx Cardiac Surgery: No Hx Lung Surgery: No Hx Breast Surgery: No Hx Breast Biopsy: No Hx Abdominal Surgery: No Hx Appendectomy: No Hx Cholecystectomy: No Hx Genitourinary Surgery: No Hx Section: No Hx Orthopedic Surgery: No Hx Hysterectomy: No Other Surgical History: ectopic at age 30 Anesthesia Reaction: No - PPD History Previous Implant?: Yes Documented Results: Negative w/proof Date: 09/15/17 Results: 0 mm PPD to be Administered?: No - Reproductive History Patient is a Female of Child Bearing Age (11 -55 yrs old): Yes Last Menstrual Period: 08/12/13 Patient : No - Smoking Cessation Smoking history: Current every day smoker Have you smoked in the past 12 months: Yes Aproximately how many cigarettes per day: 20 Cigars Per Day: 0 Hx Chewing Tobacco Use: No Initiated information on smoking cessation: Yes 'Breaking Loose' booklet given: 08/14/18 - Substance & Tx. History Hx Alcohol Use: Yes Hx Substance Use: Yes Substance Use Type: Alcohol, Cocaine Hx Substance Use Treatment: Yes ([facility] 06/20/18 to 06/24/18) - Substances abused Alcohol Substance route: Oral Frequency: Daily Amount used: 4 pts. liquor, 6 beers ( 24 oz cans) Age of first use: 16 Date of last use: 08/13/18 Cocaine Substance route: Smoking Frequency: Daily Amount used: $200 Age of first use: 18 Date of last use: 08/13/18 Crack Substance route: Smoking Frequency: Daily Amount used: $200 Age of first use: 18 Date of last use: 08/13/18 Family Disease History - Family Disease History Family Disease History: Diabetes: Father (alcohol,), Mother (alcohol, ), Heart Disease: Father, Mother, Sister (3 sisters - one [place]), CA: Father, Mother, Respiratory: Father, Other: Brother (4 brothers - one murdered), Sister, Son (one - 28 - healthy), Daughter (one - age 24 - healthy) Admission Physical Exam [facility] - Vital Signs Vital Signs: Vital Signs - 24 hr 08/14/18 08/14/18 10:15 10:45 Temperature 98.2 F 98.2 F Pulse Rate 80 80 Respiratory 18 18 Rate Blood Pressure 144/93 144/93 - Physical General Appearance: Yes: Moderate Distress, Tremorous, Irritable, Anxious HEENTM: Yes: Normal ENT Inspection, Pharynx Normal, Nasal Congestion Respiratory: Yes: Within Normal Limits, Lungs Clear, Normal Breath Sounds Neck: Yes: Within Normal Limits, Supple, Trachea in good position Breast: Yes: Breast Exam Deferred Cardiology: Yes: Within Normal Limits, Regular Rhythm, Regular Rate, S1, S2 Abdominal: Yes: Within Normal Limits, Normal Bowel Sounds, Non Tender, Soft Genitourinary: Yes: Within Normal Limits Back: Yes: Muscle Spasm Musculoskeletal: Yes: Back pain Extremities: Yes: Tremors Neurological: Yes: Within Normal Limits, terrazzo tile maker II-XII NML intact, Fully Oriented, Motor Strength 5/5 Integumentary: Yes: Dry, Rash Lymphatic: Yes: Within Normal Limits - Diagnostic (1) Alcohol dependence with uncomplicated withdrawal Current Visit: No Status: Chronic (2) Asthma Current Visit: No Status: Chronic Qualifiers: Asthma severity: mild Asthma persistence: intermittent Asthma complication type: uncomplicated Qualified Code(s): J45.20 - Mild intermittent asthma, uncomplicated (3) COPD (chronic obstructive pulmonary disease) Current Visit: No Status: Chronic Qualifiers: COPD type: emphysema Emphysema type: other Qualified Code(s): J43.8 - Other emphysema (4) Cocaine dependence Current Visit: No Status: Chronic Qualifiers: Substance use status: uncomplicated Qualified Code(s): F14.20 - Cocaine dependence, uncomplicated (5) Essential hypertension Current Visit: No Status: Chronic (6) GERD (gastroesophageal reflux disease) Current Visit: No Status: Chronic Qualifiers: Esophagitis presence: without esophagitis Qualified Code(s): K21.9 - Gastro -esophageal reflux disease without esophagitis (7) Nicotine dependence Current Visit: No Status: Chronic Qualifiers: Nicotine product type: cigarettes Substance use status: uncomplicated Qualified Code(s): F17.210 - Nicotine dependence, cigarettes, uncomplicated (8) Rash Current Visit: No Status: Chronic Comment: mild, low back (9) Bipolar disorder Current Visit: Yes Status: Acute (10) HIV (human immunodeficiency virus infection) Current Visit: Yes Status: Acute (11) Neuropathy Current Visit: Yes Status: Acute Cleared for Admission S - Detox or Rehab S Level of Care: Medically Managed Detox Regimen/Protocol: Librium Breathalyzer - Breathalyzer Breathalyzer: 0 Urine Drug Screen - Test Device Lot number: [id number] Expiration date: 03/13/20 - Control Is test valid?: Yes - Results Drug screen NEGATIVE: No Urine drug screen results: CHRISTOPHE-Cocaine, MTD-Methadone Inpatient Rehab Admission - Rehab Decision to Admit Inpatient rehab admission?: No
[2018-08-14] MEDS ORDERED: ALBUTEROL SO4 8 GM HFA INHALER IH PRN (11:25)
[2018-08-14] MEDS ORDERED: IBUPROFEN 400 MG TABLET (FP) PO PRN (11:28)
[2018-08-14] MEDS ORDERED: MENTHOL/PHENOL 1 EACH UD MM PRN (11:28)
[2018-08-14] MEDS ORDERED: METHOCARBAMOL 500 MG TABLET PO PRN (11:28)
[2018-08-14] MEDS ORDERED: BISMUTH SUBSALICYLATE 262 MG/15 ML BTL PO PRN (11:28)
[2018-08-14] MEDS ORDERED: hydrOXYzine PAMOATE 25 MG CAPSULE (FP) PO PRN (11:28)
[2018-08-14] MEDS ORDERED: MAG HYDROX/AL HYDROX/SIMETH 30 ML UNIT-DOSE CUP PO PRN (11:28)
[2018-08-14] MEDS ORDERED: ACETAMINOPHEN 325 MG TABLET (FP) PO PRN ×2 (11:28)
[2018-08-14] MEDS ORDERED: MAGNESIUM HYDROX 2400MG/30ML ORAL SUSPENSION 30 ML CUP PO PRN (11:28)
[2018-08-14] MEDS ORDERED: MAGNESIUM CITRATE 300 ML BOTTLE PO PRN (11:28)
[2018-08-14] MEDS ORDERED: chlordiazePOXIDE HCL 25 MG CAPSULE PO PRN (11:33)
[2018-08-14] MEDS: GABAPENTIN 300 MG CAPSULE (FP) PO SCH ×2 (14:06→22:17)
[2018-08-14] MEDS: HYDROCORTISONE 0.5% TOPICAL CREAM 30 GM TUBE TP SCH ×2 (14:06→22:17)
[2018-08-14] MEDS: diphenhydrAMINE HCL 25 MG CAPSULE (FP) PO PRN ×2 (14:09→23:15)
[2018-08-14 15:03] LABS: HEMATOCRIT 43.7 % (32.4-45.2); HEMOGLOBIN 13.9 GM/dL (10.7-15.3); MCH 27.6 pg (25.7-33.7); MCHC 31.8 g/dl (32.0-36.0); MEAN CELL VOLUME 86.8 fl (80-96); MEAN PLT VOLUME 8.2 fl (7.5-11.1); PLATELET COUNT 217 K/MM3 (134-434); RBC 5.03 M/mm3 (3.60-5.2); WHITE BLOOD COUNT 3.8 K/mm3 (4.0-10.0)
[2018-08-14 15:17] LABS: ALBUMIN 3.9 g/dl (3.4-5.0); ALK PHOS 102 U/L (45-117); ANION GAP 7 MMOL/L (8-16); BILIRUBIN,TOTAL 0.4 mg/dL (0.2-1); BLOOD UREA NITROGEN 13 mg/dL (7-18); CALCIUM 9.6 mg/dL (8.5-10.1); CHLORIDE 108 mmol/L (98-107); CO2 28 mmol/L (21-32); CREATININE 1.1 mg/dL (0.55-1.3); GLUCOSE,RANDOM 67 mg/dL (74-106); POTASSIUM 3.4 mmol/L (3.5-5.1); SGOT/AST 23 U/L (15-37); SGPT/ALT 23 U/L (13-61); SODIUM 143 mmol/L (136-145); TOT PROT 8.2 g/dl (6.4-8.2)
[2018-08-14] MEDS: TIOTROPIUM BROMIDE 2.5 MCG (SPIRIVA) RESPIMAT INHALER IH SCH (15:22)
--- NOTE | 2018-08-14 16:02 | PN ---
[facility] Progress Note Note: Received notice from Ursula Fowler RN that Patient's K level reported to be 3.4 from [facility] Laboratory. k-dur, 20 MEQ PO BID ordered. Will Re-Check K level on 08/2018 in AM for Re-Evaluation. Sharmila Salmeron NP
[2018-08-14] MEDS: chlordiazePOXIDE HCL 25 MG CAPSULE PO SCH ×2 (17:28→22:17)
[2018-08-14] MEDS ORDERED: POTASSIUM CHLORIDE ORAL LIQUID 20 MEQ/15 ML PO SCH (18:00)
[2018-08-14] MEDS ORDERED: cloNIDine HCL 0.1 MG TABLET PO ONE (21:49)
[2018-08-14] MEDS ORDERED: BUDESONIDE/FORMETEROL FUMARATE 160/4.5 mcg INHALER IH SCH (22:00)
[2018-08-14] MEDS: POTASSIUM CHLORIDE TABS 20 MEQ TABLET.ER (FP) PO SCH (22:16)
[2018-08-14] MEDS: THIAMINE HCL 100 MG TABLET (FP) PO SCH (22:16)
[2018-08-14] MEDS: RANITIDINE HCL 150 MG TABLET (FP) PO SCH (22:17)
[2018-08-14] MEDS: ATORVASTATIN CA 20 MG TABLET (FP) PO SCH (22:17)
[2018-08-14] MEDS: BUDESONIDE/FORMETEROL FUMARATE 160/4.5 mcg INHALER IH SCH (22:19)
[2018-08-15] MEDS: GABAPENTIN 300 MG CAPSULE (FP) PO SCH ×3 (05:09→22:11)
[2018-08-15] MEDS: chlordiazePOXIDE HCL 25 MG CAPSULE PO SCH ×4 (05:09→22:11)
[2018-08-15] MEDS: diphenhydrAMINE HCL 25 MG CAPSULE (FP) PO PRN ×2 (09:11→22:11)
[2018-08-15] MEDS: TIOTROPIUM BROMIDE 2.5 MCG (SPIRIVA) RESPIMAT INHALER IH SCH (10:32)
[2018-08-15] MEDS: BUDESONIDE/FORMETEROL FUMARATE 160/4.5 mcg INHALER IH SCH ×2 (10:32→22:13)
[2018-08-15] MEDS: ASPIRIN COATED 81 MG TABLET.EC PO SCH (10:34)
[2018-08-15] MEDS: RANITIDINE HCL 150 MG TABLET (FP) PO SCH ×2 (10:34→22:11)
[2018-08-15] MEDS: HYDROCHLOROTHIAZIDE 25 MG TABLET (FP) PO SCH (10:34)
[2018-08-15] MEDS: amLODIPine BESYLATE 10 MG TABLET (FP) PO SCH (10:34)
[2018-08-15] MEDS: PRENATAL VITAMINS W/ FOLIC ACID TABLET (FP) PO SCH (10:34)
[2018-08-15] MEDS: POTASSIUM CHLORIDE TABS 20 MEQ TABLET.ER (FP) PO SCH ×2 (10:34→22:11)
[2018-08-15] MEDS: HYDROCORTISONE 0.5% TOPICAL CREAM 30 GM TUBE TP SCH ×2 (10:35→22:13)
[2018-08-15 13:50] LABS: EPI CELLS 12.8 /HPF (0-5/HPF); PH,URINE 5.5 (5.0-8.0); URINE APPEARANCE CLEAR; URINE BACTERIA 325.7 /hpf (NEGATIVE); URINE BILIRUBIN NEGATIVE (NEGATIVE); URINE CASTS 9 /lpf (0-8); URINE COLOR YELLOW; URINE GLUCOSE (UA) NEGATIVE (NEGATIVE); URINE KETONE NEGATIVE (NEGATIVE); URINE LEUK ESTERASE TRACE (NEGATIVE); URINE NITRITE NEGATIVE (NEGATIVE); URINE PROTEIN NEGATIVE (NEGATIVE); URINE RBC 2 /hpf (0-4); URINE UROBILINOGEN 0.2 mg/dL (0.2-1.0); URINE WBC 17 /hpf (0-5)
[2018-08-15 14:48] LABS: URINE CRYSTALS CALCIUM OXALATE /hpf
--- NOTE | 2018-08-15 15:03 | PN ---
[facility] CIWA - CIWA Score Nausea/Vomitin-No Nausea/No Vomiting Muscle Tremors: 3 Anxiety: 2 Agitation: 2 Paroxysmal Sweats: 4-Forehead w/Sweat Beads Orientation: 0-Oriented Tacttile Disturbances: 0-None Auditory Disturbances: 0-None Visual Disturbances: 0-None Headache: 2-Mild CIWA-Ar Total Score: 13 [facility] Progress Note (SOAP) Subjective: c/o sweats, interrupted sleep, shakes, and mild headache. Objective: 08/15/18 15:01 Vital Signs 08/15/18 08/15/18 09:54 14:17 Temperature 97.2 F L 98.4 F Pulse Rate 88 93 H Respiratory 18 18 Rate Blood Pressure 155/92 159/99 Vital signs noted. Pt denies any chest pain, N/V at the moment. Assessment: 08/15/18 15:04 AOx3, no distress noted Full ROM, ambulating in the unit. withdrawal symptoms persists. Plan: continue detox increase fluids continue to monitor for withdrawal signs.
[2018-08-15] MEDS: ATORVASTATIN CA 20 MG TABLET (FP) PO SCH (22:11)
[2018-08-15] MEDS: THIAMINE HCL 100 MG TABLET (FP) PO SCH (22:11)
[2018-08-16] MEDS: GABAPENTIN 300 MG CAPSULE (FP) PO SCH ×3 (05:59→22:03)
[2018-08-16] MEDS: chlordiazePOXIDE HCL 25 MG CAPSULE PO SCH ×2 (05:59→10:33)
[2018-08-16] MEDS: diphenhydrAMINE HCL 25 MG CAPSULE (FP) PO PRN ×2 (06:01→15:52)
[2018-08-16] MEDS: TIOTROPIUM BROMIDE 2.5 MCG (SPIRIVA) RESPIMAT INHALER IH SCH (10:32)
[2018-08-16] MEDS: HYDROCORTISONE 0.5% TOPICAL CREAM 30 GM TUBE TP SCH ×2 (10:32→22:08)
[2018-08-16] MEDS: BUDESONIDE/FORMETEROL FUMARATE 160/4.5 mcg INHALER IH SCH ×2 (10:32→23:08)
[2018-08-16] MEDS: amLODIPine BESYLATE 10 MG TABLET (FP) PO SCH (10:33)
[2018-08-16] MEDS: HYDROCHLOROTHIAZIDE 25 MG TABLET (FP) PO SCH (10:33)
[2018-08-16] MEDS: PRENATAL VITAMINS W/ FOLIC ACID TABLET (FP) PO SCH (10:33)
[2018-08-16] MEDS: ASPIRIN COATED 81 MG TABLET.EC PO SCH (10:33)
[2018-08-16] MEDS: RANITIDINE HCL 150 MG TABLET (FP) PO SCH ×2 (10:33→22:04)
[2018-08-16] MEDS: POTASSIUM CHLORIDE TABS 20 MEQ TABLET.ER (FP) PO SCH ×2 (10:33→22:06)
[2018-08-16] MEDS ORDERED: chlordiazePOXIDE HCL 10 MG CAPSULE PO PRN (17:00)
--- NOTE | 2018-08-16 17:27 | PN ---
S CIWA - CIWA Score Nausea/Vomitin-Mild Nausea/No Vomiting Muscle Tremors: 2 Anxiety: 3 Agitation: 2 Paroxysmal Sweats: 2 Orientation: 0-Oriented Tacttile Disturbances: 0-None Auditory Disturbances: 0-None Visual Disturbances: 0-None Headache: 0-None Present CIWA-Ar Total Score: 10 S Progress Note (SOAP) Subjective: Sweating, anxious, interrupted sleep. Patient stated she was on seroquel at home and requesting to see Psychiatrist. Objective: 08/16/18 17:25 Last Vital Signs Temp Pulse Resp BP Pulse Ox 97.5 F L 87 18 152/83 08/16/18 14:15 08/16/18 14:15 08/16/18 14:15 08/16/18 14:15 Elevated b/p (has htn, on medication) Laboratory Tests 08/14/18 08/14/18 08/14/18 10:46 11:30 11:30 WBC 3.8 L RBC 5.03 Hgb 13.9 Hct 43.7 MCV 86.8 MCH 27.6 MCHC 31.8 L RDW 15.0 Plt Count 217 MPV 8.2 Sodium Potassium Chloride Carbon Dioxide Anion Gap BUN Creatinine Creat Clearance w eGFR Random Glucose Calcium Total Bilirubin AST ALT Alkaline Phosphatase Total Protein Albumin Urine Color Urine Appearance Urine pH Ur Specific [place] Urine Protein Urine Glucose (UA) Urine Ketones Urine Blood Urine Nitrite Urine Bilirubin Urine Urobilinogen Ur Leukocyte Esterase Urine WBC (Auto) Urine RBC (Auto) Urine Casts (Auto) U Epithel Cells (Auto) Urine Crystals (Auto) Urine Bacteria (Auto) POC Urine HCG, Qual Negative RPR Titer Nonreactive 08/14/18 08/15/18 08/16/18 11:30 07:45 07:50 WBC RBC Hgb Hct MCV MCH MCHC RDW Plt Count MPV Sodium 143 Potassium 3.4 L 3.5 Chloride 108 H Carbon Dioxide 28 Anion Gap 7 L BUN 13 Creatinine 1.1 Creat Clearance w eGFR 51.96 Random Glucose 67 L Calcium 9.6 Total Bilirubin 0.4 AST 23 ALT 23 Alkaline Phosphatase 102 Total Protein 8.2 Albumin 3.9 Urine Color Yellow Urine Appearance Clear Urine pH 5.5 Ur Specific [place] 1.010 Urine Protein Negative Urine Glucose (UA) Negative Urine Ketones Negative Urine Blood Negative Urine Nitrite Negative Urine Bilirubin Negative Urine Urobilinogen 0.2 Ur Leukocyte Esterase Trace Urine WBC (Auto) 17 Urine RBC (Auto) 2 Urine Casts (Auto) 9 U Epithel Cells (Auto) 12.8 Urine Crystals (Auto) Calcium oxalate Urine Bacteria (Auto) 325.7 POC Urine HCG, Qual RPR Titer Labs reviewed Assessment: 08/16/18 17:26 Withdrawal symptoms Plan: Continue detox Encouraged PO water hydration
[2018-08-16] MEDS: NICOTINE POLACRILEX 2 MG GUM BUC PRN ×2 (17:35→22:07)
[2018-08-16] MEDS: chlordiazePOXIDE HCL 10 MG CAPSULE PO SCH ×2 (17:35→22:03)
[2018-08-16] MEDS: ATORVASTATIN CA 20 MG TABLET (FP) PO SCH (22:03)
[2018-08-16] MEDS: THIAMINE HCL 100 MG TABLET (FP) PO SCH (22:04)
[2018-08-16] MEDS: MELATONIN 5 MG TABLETS PO PRN (22:05)
[2018-08-17] MEDS: GABAPENTIN 300 MG CAPSULE (FP) PO SCH ×3 (05:26→22:03)
[2018-08-17] MEDS: chlordiazePOXIDE HCL 10 MG CAPSULE PO SCH ×3 (05:26→17:41)
[2018-08-17] MEDS: diphenhydrAMINE HCL 25 MG CAPSULE (FP) PO PRN ×2 (05:29→22:03)
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
[2018-08-17] MEDS: amLODIPine BESYLATE 10 MG TABLET (FP) PO SCH (09:43)
[2018-08-17] MEDS: HYDROCHLOROTHIAZIDE 25 MG TABLET (FP) PO SCH (09:43)
[2018-08-17] MEDS: TIOTROPIUM BROMIDE 2.5 MCG (SPIRIVA) RESPIMAT INHALER IH SCH (09:43)
[2018-08-17] MEDS: POTASSIUM CHLORIDE TABS 20 MEQ TABLET.ER (FP) PO SCH ×2 (09:43→22:03)
[2018-08-17] MEDS: BUDESONIDE/FORMETEROL FUMARATE 160/4.5 mcg INHALER IH SCH ×2 (09:43→22:05)
[2018-08-17] MEDS: RANITIDINE HCL 150 MG TABLET (FP) PO SCH ×2 (09:43→22:03)
[2018-08-17] MEDS: PRENATAL VITAMINS W/ FOLIC ACID TABLET (FP) PO SCH (09:43)
[2018-08-17] MEDS: HYDROCORTISONE 0.5% TOPICAL CREAM 30 GM TUBE TP SCH ×2 (09:44→22:06)
[2018-08-17] MEDS: SERTRALINE HCL 50 MG TABLET (FP) PO SCH (09:47)
[2018-08-17] MEDS: ASPIRIN COATED 81 MG TABLET.EC PO SCH (09:47)
[2018-08-17] MEDS: NICOTINE POLACRILEX 2 MG GUM BUC PRN (10:09)
--- NOTE | 2018-08-17 13:40 | PN ---
S CIWA - CIWA Score Nausea/Vomitin-No Nausea/No Vomiting Muscle Tremors: 3 Anxiety: 1-Mildly Anxious Agitation: 2 Paroxysmal Sweats: No Perspiration Orientation: 0-Oriented Tacttile Disturbances: 0-None Auditory Disturbances: 0-None Visual Disturbances: 0-None Headache: 0-None Present CIWA-Ar Total Score: 6 BHS Progress Note (SOAP) Subjective: agitation anxiety restless Objective: 08/17/18 13:39 Vital Signs Temperature 98.1 F 08/17/18 13:39 Pulse Rate 87 08/17/18 13:39 Respiratory Rate 18 08/17/18 13:39 Blood Pressure 144/96 08/17/18 13:39 O2 Sat by Pulse Oximetry (%) Laboratory Tests 08/14/18 08/14/18 08/14/18 10:46 11:30 11:30 WBC 3.8 L RBC 5.03 Hgb 13.9 Hct 43.7 MCV 86.8 MCH 27.6 MCHC 31.8 L RDW 15.0 Plt Count 217 MPV 8.2 Sodium Potassium Chloride Carbon Dioxide Anion Gap BUN Creatinine Creat Clearance w eGFR Random Glucose Calcium Total Bilirubin AST ALT Alkaline Phosphatase Total Protein Albumin Urine Color Urine Appearance Urine pH Ur Specific [place] Urine Protein Urine Glucose (UA) Urine Ketones Urine Blood Urine Nitrite Urine Bilirubin Urine Urobilinogen Ur Leukocyte Esterase Urine WBC (Auto) Urine RBC (Auto) Urine Casts (Auto) U Epithel Cells (Auto) Urine Crystals (Auto) Urine Bacteria (Auto) POC Urine HCG, Qual Negative RPR Titer Nonreactive 08/14/18 08/15/18 08/16/18 11:30 07:45 07:50 WBC RBC Hgb Hct MCV MCH MCHC RDW Plt Count MPV Sodium 143 Potassium 3.4 L 3.5 Chloride 108 H Carbon Dioxide 28 Anion Gap 7 L BUN 13 Creatinine 1.1 Creat Clearance w eGFR 51.96 Random Glucose 67 L Calcium 9.6 Total Bilirubin 0.4 AST 23 ALT 23 Alkaline Phosphatase 102 Total Protein 8.2 Albumin 3.9 Urine Color Yellow Urine Appearance Clear Urine pH 5.5 Ur Specific [place] 1.010 Urine Protein Negative Urine Glucose (UA) Negative Urine Ketones Negative Urine Blood Negative Urine Nitrite Negative Urine Bilirubin Negative Urine Urobilinogen 0.2 Ur Leukocyte Esterase Trace Urine WBC (Auto) 17 Urine RBC (Auto) 2 Urine Casts (Auto) 9 U Epithel Cells (Auto) 12.8 Urine Crystals (Auto) Calcium oxalate Urine Bacteria (Auto) 325.7 POC Urine HCG, Qual RPR Titer labs noted; potassium improved aaox3 ambulating no acute distress Assessment: 08/17/18 13:40 mild withdrawal sx Plan: continue detox increase fluids
[2018-08-17] MEDS: THIAMINE HCL 100 MG TABLET (FP) PO SCH (22:03)
[2018-08-17] MEDS: ATORVASTATIN CA 20 MG TABLET (FP) PO SCH (22:03)
[2018-08-17] MEDS: QUEtiapine FUMARATE 200 MG TABLET PO SCH (22:03)
[2018-08-17] MEDS: MELATONIN 5 MG TABLETS PO PRN (22:06)
[2018-08-18] MEDS: GABAPENTIN 300 MG CAPSULE (FP) PO SCH ×3 (06:21→22:06)
[2018-08-18] MEDS: chlordiazePOXIDE HCL 10 MG CAPSULE PO SCH ×2 (06:21→17:27)
[2018-08-18] MEDS: diphenhydrAMINE HCL 25 MG CAPSULE (FP) PO PRN (06:21)
[2018-08-18] MEDS: HYDROCHLOROTHIAZIDE 25 MG TABLET (FP) PO SCH (09:36)
[2018-08-18] MEDS: RANITIDINE HCL 150 MG TABLET (FP) PO SCH ×2 (09:36→22:06)
[2018-08-18] MEDS: TIOTROPIUM BROMIDE 2.5 MCG (SPIRIVA) RESPIMAT INHALER IH SCH (09:36)
[2018-08-18] MEDS: SERTRALINE HCL 50 MG TABLET (FP) PO SCH (09:36)
[2018-08-18] MEDS: PRENATAL VITAMINS W/ FOLIC ACID TABLET (FP) PO SCH (09:36)
[2018-08-18] MEDS: POTASSIUM CHLORIDE TABS 20 MEQ TABLET.ER (FP) PO SCH ×2 (09:36→22:06)
[2018-08-18] MEDS: BUDESONIDE/FORMETEROL FUMARATE 160/4.5 mcg INHALER IH SCH ×2 (09:36→22:08)
[2018-08-18] MEDS: ASPIRIN COATED 81 MG TABLET.EC PO SCH (09:36)
[2018-08-18] MEDS: amLODIPine BESYLATE 10 MG TABLET (FP) PO SCH (09:36)
[2018-08-18] MEDS: HYDROCORTISONE 0.5% TOPICAL CREAM 30 GM TUBE TP SCH ×2 (09:37→22:08)
[2018-08-18] MEDS: NICOTINE POLACRILEX 2 MG GUM BUC PRN ×2 (09:37→19:55)
--- NOTE | 2018-08-18 11:27 | PN ---
S CIWA - CIWA Score Nausea/Vomitin-No Nausea/No Vomiting Muscle Tremors: 3 Anxiety: 2 Agitation: 2 Paroxysmal Sweats: 2 Orientation: 0-Oriented Tacttile Disturbances: 0-None Auditory Disturbances: 0-None Visual Disturbances: 0-None Headache: 0-None Present CIWA-Ar Total Score: 9 BHS Progress Note (SOAP) Subjective: anxiety Objective: 08/18/18 11:26 Vital Signs Temperature 98.2 F 08/18/18 09:11 Pulse Rate 89 08/18/18 09:11 Respiratory Rate 18 08/18/18 09:11 Blood Pressure 142/102 H 08/18/18 09:11 O2 Sat by Pulse Oximetry (%) aaox3 ambulating no acute distress Assessment: 08/18/18 11:26 mild withdrawal sx Plan: continue detox increase fluids d/c in am
[2018-08-18] MEDS: QUEtiapine FUMARATE 200 MG TABLET PO SCH (22:06)
[2018-08-18] MEDS: ATORVASTATIN CA 20 MG TABLET (FP) PO SCH (22:06)
[2018-08-18] MEDS: THIAMINE HCL 100 MG TABLET (FP) PO SCH (22:06)
[2018-08-19] MEDS: GABAPENTIN 300 MG CAPSULE (FP) PO SCH (05:43)
--- NOTE | 2018-08-19 08:49 | DS ---
[facility] Detox Discharge Summary Admission Date: 08/14/18 Discharge Date: 08/19/18 - History Present History: Alcohol Dependence, Cocaine Dependence - Physical Exam Results Vital Signs: Vital Signs Temperature 98.2 F 08/19/18 08:30 Pulse Rate 83 08/19/18 08:30 Respiratory Rate 18 08/19/18 08:30 Blood Pressure 114/70 08/19/18 08:30 O2 Sat by Pulse Oximetry (%) - Treatment Hospital Course: Detox Protocol Followed, Detoxed Safely, Responded well, Discharged Condition Good, Rehab Referral Accepted - Medication Discharge Medications: Ambulatory Orders Elviteg/Cob/Emtri/Tenof Alafen [Genvoya Tablet] 1 each PO DAILY 04/25/17 Aspirin Coated [Ecotrin -] 81 mg PO DAILY #30 tablet.ec 08/01/17 Mometasone/Formoterol [Dulera 200 Mcg/5 Mcg Inhaler] 2 inh IH BID #1 hfa.aer.ad 08/01/17 Sertraline HCl [Zoloft] 100 mg PO DAILY #30 tablet 12/01/17 Gabapentin [Neurontin -] 300 mg PO TID #90 capsule 12/15/17 Albuterol Sulfate Inhaler - [Ventolin HFA Inhaler -] 2 inh PO Q4H PRN #1 inh Amlodipine Besylate [Norvasc -] 10 mg PO DAILY #14 tablet 04/26/18 Atorvastatin Ca [Lipitor] 20 mg PO HS #30 tablet 04/26/18 Budesonide/Formeterol Fumarate [SYMBICORT 160/4.5mcg -] 1 puff IH BID #1 inhaler 04/26/18 Hydrochlorothiazide [Hctz -] 25 mg PO DAILY #30 tablet 04/26/18 Metoprolol Succinate [Toprol XL -] 50 mg PO DAILY #14 tab.sr.24h 04/26/18 Tiotropium [place] [Spiriva] 1 inh IH DAILY #1 cap.w.dev 04/26/18 Quetiapine Fumarate [Seroquel -] 300 mg PO HS 06/20/18 Ranitidine HCl [Zantac] 150 mg PO BID 06/20/18 - Diagnosis (1) Substance-induced anxiety disorder Current Visit: Yes Status: Acute (2) HIV (human immunodeficiency virus infection) Current Visit: Yes Status: Chronic Qualifiers: HIV symptom status: unspecified Qualified Code(s): B20 - Human immunodeficiency virus [HIV] disease (3) Neuropathy Current Visit: Yes Status: Chronic (4) Bipolar disorder Current Visit: Yes Status: Ruled-out (5) Alcohol dependence with uncomplicated withdrawal Current Visit: Yes Status: Chronic (6) Cocaine dependence Current Visit: Yes Status: Chronic Qualifiers: Substance use status: uncomplicated Qualified Code(s): F14.20 - Cocaine dependence, uncomplicated (7) Substance-induced sleep disorder Current Visit: No Status: Acute (8) Substance-induced sleep disorder Current Visit: No Status: Acute (9) Asthma Current Visit: Yes Status: Chronic Qualifiers: Asthma severity: mild Asthma persistence: intermittent Asthma complication type: uncomplicated Qualified Code(s): J45.20 - Mild intermittent asthma, uncomplicated (10) COPD (chronic obstructive pulmonary disease) Current Visit: Yes Status: Chronic Qualifiers: COPD type: emphysema Emphysema type: other Qualified Code(s): J43.8 - Other emphysema (11) Essential hypertension Current Visit: Yes Status: Chronic (12) GERD (gastroesophageal reflux disease) Current Visit: Yes Status: Chronic Qualifiers: Esophagitis presence: without esophagitis Qualified Code(s): K21.9 - Gastro -esophageal reflux disease without esophagitis (13) HIV (human immunodeficiency virus infection) Current Visit: Yes Status: Chronic Qualifiers: HIV symptom status: asymptomatic Qualified Code(s): Z21 - Asymptomatic human immunodeficiency virus [HIV] infection status (14) Hypercholesterolemia Current Visit: No Status: Chronic (15) Mood disorder Current Visit: No Status: Chronic (16) Murmur, cardiac Current Visit: No Status: Chronic (17) Nicotine dependence Current Visit: Yes Status: Chronic Qualifiers: Nicotine product type: cigarettes Substance use status: uncomplicated Qualified Code(s): F17.210 - Nicotine dependence, cigarettes, uncomplicated (18) History of syphilis Current Visit: No Status: Resolved (19) MDD (major depressive disorder) Current Visit: No Status: Ruled-out - AMA Did Patient Leave Against Medical Advice: No (referred to [facility])
[2018-08-19] MEDS: amLODIPine BESYLATE 10 MG TABLET (FP) PO SCH (10:15)
[2018-08-19] MEDS: POTASSIUM CHLORIDE TABS 20 MEQ TABLET.ER (FP) PO SCH (10:15)
[2018-08-19] MEDS: SERTRALINE HCL 50 MG TABLET (FP) PO SCH (10:15)
[2018-08-19] MEDS: HYDROCHLOROTHIAZIDE 25 MG TABLET (FP) PO SCH (10:16)
[2018-08-19] MEDS: RANITIDINE HCL 150 MG TABLET (FP) PO SCH (10:16)
[2018-08-19] MEDS: BUDESONIDE/FORMETEROL FUMARATE 160/4.5 mcg INHALER IH SCH (10:16)
[2018-08-19] MEDS: ASPIRIN COATED 81 MG TABLET.EC PO SCH (10:16)
[2018-08-19] MEDS: TIOTROPIUM BROMIDE 2.5 MCG (SPIRIVA) RESPIMAT INHALER IH SCH (10:16)
[2018-08-19 10:20] VITALS: BP 132/88; PULSE 94; TEMP 96.8
[2018-08-19] MEDS: HYDROCORTISONE 0.5% TOPICAL CREAM 30 GM TUBE TP SCH (11:12)
[2018-08-19] MEDS: PRENATAL VITAMINS W/ FOLIC ACID TABLET (FP) PO SCH (11:12)
== END 2018-08-19 11:53 | disposition home or self-care (01) | DRG 774 ==
LOC: YASAS 09:50 → Y6N 12:11
PROVIDERS: ADMIT Surgery; ATTEND Surgery
PROC: HZ2ZZZZ Detoxification Services for Substance Abuse Treatment (ICD-10-PCS; principal; 2018-08-14)
DX: F10.230 Alcohol dependence with withdrawal, uncomplicated (principal); F14.20 Cocaine dependence, uncomplicated; F17.210 Nicotine dependence, cigarettes, uncomplicated; F19.280 Other psychoactive substance dependence with psychoactive substance-induced anxiety disorder; F19.282 Other psychoactive substance dependence with psychoactive substance-induced sleep disorder; F39 Unspecified mood [affective] disorder; F32.9 Major depressive disorder, single episode, unspecified; I10 Essential (primary) hypertension; B20 Human immunodeficiency virus [HIV] disease; G62.9 Polyneuropathy, unspecified; J45.20 Mild intermittent asthma, uncomplicated; J43.8 Other emphysema; K21.9 Gastro-esophageal reflux disease without esophagitis; E78.5 Hyperlipidemia, unspecified; E01.1 Iodine-deficiency related multinodular (endemic) goiter; R01.1 Cardiac murmur, unspecified; R21 Rash and other nonspecific skin eruption; Z87.42 Personal history of other diseases of the female genital tract; Z91.013 Allergy to seafood; Z88.2 Allergy status to sulfonamides; Z88.8 Allergy status to other drugs, medicaments and biological substances; Z91.5 Personal history of self-harm
CPT/HCPCS: 36415; 80053; 81003; 81025; 84132; 85027; 86593; J0735

== ENCOUNTER 2018-10-16 09:26 | Inpatient (IN) | payer OTHER ==
[2018-10-16 09:52] VITALS: BMI 28.1
--- NOTE | 2018-10-16 10:31 | HP ---
CIWA Score Nausea/Vomitin-No Nausea/No Vomiting Muscle Tremors: None Anxiety: 2 Agitation: 3 Paroxysmal Sweats: 1-Minimal Palms Moist Orientation: 0-Oriented Tacttile Disturbances: 0-None Auditory Disturbances: 0-None Visual Disturbances: 2-Mild Sensitivity Headache: 3-Moderate CIWA-Ar Total Score: 11 - Admission Criteria OASAS Guidelines: Admission for Medically Managed Detox: Requires at least one of the followin. CIWA greater than 12 2. Seizures within the past 24 hours 3. Delirium tremens within the past 24 hours 4. Hallucinations within the past 24 hours 5. Acute intervention needed for co occurring medical disorder 6. Acute intervention needed for co occurring psychiatric disorder 7. Severe withdrawal that cannot be handled at a lower level of care (continued vomiting, continued diarrhea, abnormal vital signs) requiring intravenous medication and/or fluids 8. Admission ROS [facility] Chief Complaint: seeking help for alcohol and cocaine use Allergies/Adverse Reactions: Allergies Allergy/AdvReac Type Severity Reaction Status Date / Time lisinopril Allergy Severe Swelling Verified 10/16/18 09:33 turkey Allergy Severe Rash Verified 10/16/18 09:33 Fish Containing Products Allergy Rash Verified 10/16/18 09:33 erythromycin base AdvReac Severe Rash Verified 10/16/18 09:33 sulfamethoxazole AdvReac Severe Rash Verified 10/16/18 09:33 [From Bactrim] trimethoprim [From Bactrim] AdvReac Severe Rash Verified 10/16/18 09:33 History of Present Illness: 53 y/o/f here for alcohol and cocaine use. She was last in detox in August 2018 and states she started drinking right after she left the facility. She was initially drinking 3 cans of beer a day but now she is drinking 6 cans of beer daily and a pint of vodka of every other day. She starts drinking with breakfast and drinks throughout the day. Her last drink was this morning. She denies any history of seizures or blackouts. She has been using $200 to $300 worth of cocaine daily which she smokes and denies any IV use. She last used cocaine yesterday. She is currently taking chantix everyday and up to 5 cigarettes daily. She denies taking any other drugs. She is currently living by herself and is unemployed. She has a PMHx of COPD, HTN, and HIV. She states she takes her medication everyday. She has had lower back pain on her right side for the last week which she states radiates down her right leg. She rates the pain a 8/10. She denies any history of trauma or falls. She denies any numbness or tingling. Exam Limitations: No Limitations - Ebola screening Have you traveled outside of the country in the last 21 days: No Have you had contact with anyone from an Ebola affected area: No - Review of Systems Constitutional: Chills, Loss of Appetite EENT: reports: Nose Congestion Respiratory: reports: Cough, Wheezing Cardiac: reports: No Symptoms Reported GI: reports: Diarrhea, Poor Appetite. denies: Constipated, Nausea, Vomiting : reports: No Symptoms Reported Musculoskeletal: reports: Back Pain (x1 week), Joint Pain Integumentary: reports: No Symptoms Reported Neuro: reports: Headache Endocrine: reports: Intolerance to Heat Hematology: reports: No Symptoms Reported Psychiatric: reports: Agitated, Anxious, Depressed Patient History - Patient Medical History Hx Anemia: No Hx Asthma: Yes (on multiple inhalers) Hx Chronic Obstructive Pulmonary Disease (COPD): Yes (spiriva) Hx Cancer: No Hx Cardiac Disorders: No Hx Congestive Heart Failure: No Hx Hypertension: Yes (on med) Hx Hypercholesterolemia: Yes (on med) Hx Pacemaker: No HX Cerebrovascular Accident: No Hx Seizures: No Hx Dementia: No Hx Diabetes: No Hx Gastrointestinal Disorders: Yes (acid reflux) Hx Liver Disease: No Hx Genitourinary Disorders: No Hx Sexually Transmitted Disorders: Yes (treated for syphilis) Hx Renal Disease (ESRD): No Hx Thyroid Disease: No Hx Human Immunodeficiency Virus (HIV): Yes (ON GENVOYA , VL <20 last mediction 6 months ago) Hx Hepatitis C: No Hx Depression: Yes (on meds) Hx Suicide Attempt: Yes (at age 11 - took pill overdose - hospitalized) Hx Bipolar Disorder: Yes Hx Schizophrenia: No (hears voices) Other Medical History: no suicidal or homicidal ideations - Patient Surgical History Past Surgical History: Yes Hx Neurologic Surgery: No Hx Cataract Extraction: No Hx Cardiac Surgery: No Hx Lung Surgery: No Hx Breast Surgery: No Hx Breast Biopsy: No Hx Abdominal Surgery: No Hx Appendectomy: No Hx Cholecystectomy: No Hx Genitourinary Surgery: No Hx Section: No Hx Orthopedic Surgery: No Hx Hysterectomy: No Other Surgical History: ectopic at age 30 Anesthesia Reaction: No - PPD History Previous Implant?: Yes Documented Results: Negative w/o proof Implanted On Prior [facility] Admission?: Yes Date: 09/15/17 Results: 0 mm - Reproductive History Patient is a Female of Child Bearing Age (11 -55 yrs old): Yes Last Menstrual Period: 08/12/13 - Smoking Cessation Smoking history: Current every day smoker Have you smoked in the past 12 months: Yes Aproximately how many cigarettes per day: 5 Cigars Per Day: 0 Hx Chewing Tobacco Use: No Initiated information on smoking cessation: Yes 'Breaking Loose' booklet given: 10/16/18 - Substance & Tx. History Hx Alcohol Use: Yes Hx Substance Use: Yes Substance Use Type: Alcohol, Cocaine - Substances abused Alcohol Substance route: Oral Frequency: Daily Amount used: 4 pts. liquor, 6 beers ( 24 oz cans) Age of first use: 16 Date of last use: 10/16/18 Cocaine Substance route: Smoking Frequency: Daily Amount used: $200 Age of first use: 18 Date of last use: 08/13/18 Crack Substance route: Smoking Frequency: Daily Amount used: $200-$300 Age of first use: 18 Date of last use: 10/15/18 Family Disease History - Family Disease History Family Disease History: Diabetes: Father (alcohol,), Mother (alcohol, ), Heart Disease: Father, Mother, Sister (3 sisters - one IA), CA: Father, Mother, Respiratory: Father, Other: Brother (4 brothers - one murdered), Sister, Son (one - 28 - healthy), Daughter (one - age 24 - healthy) Admission Physical Exam [facility] - Vital Signs Vital Signs: Vital Signs - 24 hr 10/16/18 09:28 Temperature 97.6 F Pulse Rate 92 H Respiratory 17 Rate Blood Pressure 127/89 - Physical General Appearance: Yes: Mild Distress HEENTM: Yes: EOMI, Nasal Congestion Respiratory: Yes: No Accessory Muscle Use, Wheezing (mild end expiratory wheezing) Neck: Yes: Supple Cardiology: Yes: Regular Rhythm, Regular Rate, Systolic Murmur Abdominal: Yes: Non Tender, Soft Back: Yes: Other (tenderness to palpation over right side paravertebral muscles) . 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, Fully Oriented, Alert, Motor Strength 5/5 Integumentary: Yes: Dry - Diagnostic (1) COPD (chronic obstructive pulmonary disease) Current Visit: No Status: Chronic Qualifiers: COPD type: emphysema Emphysema type: other Qualified Code(s): J43.8 - Other emphysema (2) Cocaine dependence Current Visit: No Status: Chronic Qualifiers: Substance use status: uncomplicated Qualified Code(s): F14.20 - Cocaine dependence, uncomplicated (3) Essential hypertension Current Visit: No Status: Chronic (4) HIV (human immunodeficiency virus infection) Current Visit: No Status: Chronic Qualifiers: HIV symptom status: asymptomatic Qualified Code(s): Z21 - Asymptomatic human immunodeficiency virus [HIV] infection status (5) Hypercholesterolemia Current Visit: No Status: Chronic (6) Nicotine dependence Current Visit: No Status: Chronic Qualifiers: Nicotine product type: cigarettes Substance use status: uncomplicated Qualified Code(s): F17.210 - Nicotine dependence, cigarettes, uncomplicated Cleared for Admission BHS - Detox or Rehab [facility] Level of Care: Medically Supervised 2Day Detox Regimen/Protocol: Librium Breathalyzer - Breathalyzer Breathalyzer: 0.006 Urine Drug Screen - Test Device Lot number: [id number] Expiration date: 06/11/20 - Control Is test valid?: Yes - Results Drug screen NEGATIVE: No Urine drug screen results: [facility] Inpatient Re[facility] Admission - Rehab Decision to Admit Inpatient rehab admission?: No
[2018-10-16] MEDS ORDERED: ALBUTEROL SO4 8 GM HFA INHALER IH PRN (11:18)
[2018-10-16] MEDS ORDERED: ACETAMINOPHEN 325 MG TABLET (FP) PO PRN ×2 (11:21)
[2018-10-16] MEDS ORDERED: MAG HYDROX/AL HYDROX/SIMETH 30 ML UNIT-DOSE CUP PO PRN (11:21)
[2018-10-16] MEDS ORDERED: BISMUTH SUBSALICYLATE 262 MG/15 ML BTL PO PRN (11:21)
[2018-10-16] MEDS ORDERED: chlordiazePOXIDE HCL 10 MG CAPSULE PO PRN (11:21)
[2018-10-16] MEDS ORDERED: MAGNESIUM CITRATE 300 ML BOTTLE PO PRN (11:21)
[2018-10-16] MEDS ORDERED: IBUPROFEN 400 MG TABLET (FP) PO PRN (11:21)
[2018-10-16] MEDS ORDERED: MAGNESIUM HYDROX 2400MG/30ML ORAL SUSPENSION 30 ML CUP PO PRN (11:21)
[2018-10-16] MEDS ORDERED: MELATONIN 5 MG TABLETS PO PRN (11:21)
[2018-10-16] MEDS ORDERED: MENTHOL/PHENOL 1 EACH UD MM PRN (11:21)
[2018-10-16] MEDS ORDERED: hydrOXYzine PAMOATE 25 MG CAPSULE (FP) PO PRN (11:21)
[2018-10-16] MEDS ORDERED: PATIENT'S OWN MEDICATION (NON-FORMULARY) (Tiotropium Bromide [Spiriva] 1 INH) IH SCH (11:30)
[2018-10-16] MEDS ORDERED: PATIENT'S OWN MEDICATION (NON-FORMULARY) (Mometasone/Formoterol [Dulera 200 Mcg/5 Mcg Inha IH SCH (11:30)
[2018-10-16] MEDS ORDERED: VARENICLINE TARTRATE 0.5 MG TAB PO SCH (12:00)
[2018-10-16] MEDS: amLODIPine BESYLATE 10 MG TABLET (FP) PO SCH (12:48)
[2018-10-16] MEDS: chlordiazePOXIDE HCL 25 MG CAPSULE PO SCH ×2 (12:48→22:16)
[2018-10-16] MEDS: BUDESONIDE/FORMETEROL FUMARATE 160/4.5 mcg INHALER IH SCH (12:48)
[2018-10-16] MEDS: RANITIDINE HCL 150 MG TABLET (FP) PO SCH ×2 (12:48→22:16)
[2018-10-16] MEDS: ASPIRIN COATED 81 MG TABLET.EC PO SCH (12:48)
[2018-10-16] MEDS: HYDROCHLOROTHIAZIDE 25 MG TABLET (FP) PO SCH (12:48)
[2018-10-16] MEDS: PATIENT'S OWN MEDICATION (NON-FORMULARY) (Bictegrav/Emtricit/Tenofov Ala 1 EACH) PO SCH (12:56)
[2018-10-16] MEDS: VARENICLINE TARTRATE 0.5 MG PO SCH (12:56)
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
[2018-10-16] MEDS: SERTRALINE HCL 50 MG TABLET (FP) PO SCH (14:38)
[2018-10-16 14:43] LABS: HEMOGLOBIN 12.8 GM/dL (10.7-15.3); MCH 28.1 pg (25.7-33.7); MCHC 32.8 g/dl (32.0-36.0); MEAN CELL VOLUME 85.5 fl (80-96); MEAN PLT VOLUME 8.2 fl (7.5-11.1); PLATELET COUNT 247 K/MM3 (134-434); RBC 4.56 M/mm3 (3.60-5.2); RDW 14.8 % (11.6-15.6); WHITE BLOOD COUNT 6.2 K/mm3 (4.0-10.0)
[2018-10-16 14:53] LABS: ALBUMIN 3.4 g/dl (3.4-5.0); BILIRUBIN,TOTAL 0.4 mg/dL (0.2-1); BLOOD UREA NITROGEN 10.4 mg/dL (7-18); CALCIUM 8.9 mg/dL (8.5-10.1); CREATININE 0.9 mg/dL (0.55-1.3); POTASSIUM 3.2 mmol/L (3.5-5.1); TOT PROT 7.6 g/dl (6.4-8.2)
--- NOTE | 2018-10-16 15:48 | PN ---
[facility] Progress Note Note: pt here requesting detox from etoh use , current symptoms as above, reports LBP w/ r le radiation on posterior aspect of the leg worse w/ standing, walking better lying down , pain rated as 8/10 , pt associates w/ change of meds , denies recent falls or injuries. PMHx of COPD, HTN, and HIV.reports non- compliance w/ meds > 1 year , states ID changed meds which she brought to facility . PE : pt ambulating w/ R sided limp , no calf tenderness, neg Homans'. declined transfer to hospital at this time, states prefers to address eoth detox for now and will followup upon d/c for LBP . ETOH dependence - Librium taper pt was advised to notify medical and nursing staff for any worsening symptoms , denies change in bowel/ bladder fx at this time, denies numbness / tingling. verbalizes understanding and agreement w/ POC .
[2018-10-16] MEDS: ATORVASTATIN CA 20 MG TABLET (FP) PO SCH (22:16)
[2018-10-16] MEDS: THIAMINE HCL 100 MG TABLET (FP) PO SCH (22:16)
[2018-10-16] MEDS: QUEtiapine FUMARATE 300 MG TABLET PO SCH (22:16)
[2018-10-17] MEDS: BUDESONIDE/FORMETEROL FUMARATE 160/4.5 mcg INHALER IH SCH ×3 (00:06→22:46)
[2018-10-17] MEDS: chlordiazePOXIDE HCL 25 MG CAPSULE PO SCH ×3 (06:36→22:20)
[2018-10-17] MEDS: ASPIRIN COATED 81 MG TABLET.EC PO SCH (10:38)
[2018-10-17] MEDS: VARENICLINE TARTRATE 0.5 MG PO SCH (10:38)
[2018-10-17] MEDS: amLODIPine BESYLATE 10 MG TABLET (FP) PO SCH (10:38)
[2018-10-17] MEDS: PATIENT'S OWN MEDICATION (NON-FORMULARY) (Bictegrav/Emtricit/Tenofov Ala 1 EACH) PO SCH (10:38)
[2018-10-17] MEDS: HYDROCHLOROTHIAZIDE 25 MG TABLET (FP) PO SCH (10:38)
[2018-10-17] MEDS: SERTRALINE HCL 50 MG TABLET (FP) PO SCH (10:38)
[2018-10-17] MEDS: RANITIDINE HCL 150 MG TABLET (FP) PO SCH ×2 (10:38→22:45)
[2018-10-17] MEDS: PRENATAL VITAMINS W/ FOLIC ACID TABLET (FP) PO SCH (10:38)
--- NOTE | 2018-10-17 13:19 | PN ---
S CIWA - CIWA Score Nausea/Vomitin-No Nausea/No Vomiting Muscle Tremors: 2 Anxiety: 2 Agitation: 2 Paroxysmal Sweats: 3 Orientation: 0-Oriented Tacttile Disturbances: 0-None Auditory Disturbances: 0-None Visual Disturbances: 0-None Headache: 1-Very Mild CIWA-Ar Total Score: 10 S Progress Note (SOAP) Subjective: c/o anxiety, sweats, and mild headache. Objective: 10/17/18 13:18 Vital Signs 10/17/18 10/17/18 07:57 09:40 Temperature 97.5 F L 97.5 F L Pulse Rate 80 101 H Respiratory 18 18 Rate Blood Pressure 148/87 118/84 Lab Results WBC 6.2 K/mm3 (4.0-10.0) 10/16/18 11:40 RBC 4.56 M/mm3 (3.60-5.2) 10/16/18 11:40 Hgb 12.8 GM/dL (10.7-15.3) 10/16/18 11:40 Hct 39.0 % (32.4-45.2) 10/16/18 11:40 MCV 85.5 fl (80-96) 10/16/18 11:40 MCHC 32.8 g/dl (32.0-36.0) 10/16/18 11:40 RDW 14.8 % (11.6-15.6) 10/16/18 11:40 Plt Count 247 K/MM3 (134-434) 10/16/18 11:40 Sodium 139 mmol/L (136-145) 10/16/18 11:40 Potassium 3.2 mmol/L (3.5-5.1) L 10/16/18 11:40 Chloride 105 mmol/L (98-107) 10/16/18 11:40 Carbon Dioxide 28 mmol/L (21-32) 10/16/18 11:40 Anion Gap 6 MMOL/L (8-16) L 10/16/18 11:40 BUN 10.4 mg/dL (7-18) 10/16/18 11:40 Creatinine 0.9 mg/dL (0.55-1.3) 10/16/18 11:40 Random Glucose 97 mg/dL (74-106) 10/16/18 11:40 Calcium 8.9 mg/dL (8.5-10.1) 10/16/18 11:40 Labs noted. Assessment: 10/17/18 13:18 AOX3, in no respiratory distress Full ROM, ambulating in the unit. withdrawal signs Plan: continue detox.
[2018-10-17] MEDS: THIAMINE HCL 100 MG TABLET (FP) PO SCH (22:45)
[2018-10-17] MEDS: ATORVASTATIN CA 20 MG TABLET (FP) PO SCH (22:45)
[2018-10-17] MEDS: QUEtiapine FUMARATE 300 MG TABLET PO SCH (22:45)
[2018-10-18] MEDS: chlordiazePOXIDE 5 MG CAPSULE PO SCH ×3 (05:42→22:50)
[2018-10-18] MEDS: PRENATAL VITAMINS W/ FOLIC ACID TABLET (FP) PO SCH (09:47)
[2018-10-18] MEDS: SERTRALINE HCL 50 MG TABLET (FP) PO SCH (09:47)
[2018-10-18] MEDS: HYDROCHLOROTHIAZIDE 25 MG TABLET (FP) PO SCH (09:47)
[2018-10-18] MEDS: amLODIPine BESYLATE 10 MG TABLET (FP) PO SCH (09:47)
[2018-10-18] MEDS: RANITIDINE HCL 150 MG TABLET (FP) PO SCH ×2 (09:47→22:50)
[2018-10-18] MEDS: BUDESONIDE/FORMETEROL FUMARATE 160/4.5 mcg INHALER IH SCH ×2 (09:48→22:52)
[2018-10-18] MEDS: VARENICLINE TARTRATE 0.5 MG PO SCH (09:48)
[2018-10-18] MEDS: ASPIRIN COATED 81 MG TABLET.EC PO SCH (09:48)
[2018-10-18] MEDS: PATIENT'S OWN MEDICATION (NON-FORMULARY) (Bictegrav/Emtricit/Tenofov Ala 1 EACH) PO SCH (09:48)
[2018-10-18] MEDS: FLUTICASONE PROP 0.05% 16 GM NASAL SPRAY NS SCH ×2 (12:36→23:26)
[2018-10-18] MEDS ORDERED: POTASSIUM CHLORIDE TABS 20 MEQ TABLET.ER (FP) PO ONE (16:25)
--- NOTE | 2018-10-18 16:27 | PN ---
[facility] CIWA - CIWA Score Nausea/Vomitin-No Nausea/No Vomiting Muscle Tremors: 3 Anxiety: 2 Agitation: 2 Paroxysmal Sweats: No Perspiration Orientation: 0-Oriented Tacttile Disturbances: 3-Moderate Itch/Numb/Burn Auditory Disturbances: 0-None Visual Disturbances: 0-None Headache: 0-None Present CIWA-Ar Total Score: 10 S Progress Note (SOAP) Subjective: Anxious, Tremors. Patient Reports That Current withdrawal symptoms are gradually subsiding in severity since time in which she was admitted to Detox. Objective: PATIENT A & O X 3, OBSERVED AMBULATING ON UNIT UNASSISTED. IN NO ACUTE DISTRESS. 10/18/18 16:24 Vital Signs Temperature 97.5 F L 10/18/18 13:21 Pulse Rate 81 10/18/18 13:21 Respiratory Rate 18 10/18/18 13:21 Blood Pressure 131/85 10/18/18 13:21 O2 Sat by Pulse Oximetry (%) Laboratory Tests 10/16/18 10/16/18 10/16/18 10: 11:40 11:40 WBC 6.2 RBC 4.56 Hgb 12.8 Hct 39.0 MCV 85.5 MCH 28.1 MCHC 32.8 RDW 14.8 Plt Count 247 MPV 8.2 Sodium 139 Potassium 3.2 L Chloride 105 Carbon Dioxide 28 Anion Gap 6 L BUN 10.4 Creatinine 0.9 Est GFR (CKD-EPI)AfAm 84.61 Est GFR (CKD-EPI)NonAf 73.00 Random Glucose 97 Calcium 8.9 Total Bilirubin 0.4 AST 14 L ALT 14 Alkaline Phosphatase 92 Total Protein 7.6 Albumin 3.4 POC Urine HCG, Qual Negative RPR Titer 10/16/18 11:40 WBC RBC Hgb Hct MCV MCH MCHC RDW Plt Count MPV Sodium Potassium Chloride Carbon Dioxide Anion Gap BUN Creatinine Est GFR (CKD-EPI)AfAm Est GFR (CKD-EPI)NonAf Random Glucose Calcium Total Bilirubin AST ALT Alkaline Phosphatase Total Protein Albumin POC Urine HCG, Qual RPR Titer Nonreactive LABS NOTED. Assessment: 10/18/18 16:24 WITHDRAWAL SYMPTOMS. HYPOAKLEMIA. 10/18/18 16:27 Plan: CONTINUE DETOX. K-DUR, 40 MEQ PO X 1 DOSE. REPEAT K LEVEL ORDERED FOR TOMORROW AM TO SEE IF ANY IMPROVEMENT IN K LEVEL.
[2018-10-18] MEDS: QUEtiapine FUMARATE 300 MG TABLET PO SCH (22:50)
[2018-10-18] MEDS: THIAMINE HCL 100 MG TABLET (FP) PO SCH (22:50)
[2018-10-18] MEDS: ATORVASTATIN CA 20 MG TABLET (FP) PO SCH (22:51)
[2018-10-19] MEDS ORDERED: chlordiazePOXIDE HCL 10 MG CAPSULE PO PRN
[2018-10-19] MEDS: chlordiazePOXIDE HCL 10 MG CAPSULE PO SCH ×3 (05:52→22:43)
[2018-10-19] MEDS: BUDESONIDE/FORMETEROL FUMARATE 160/4.5 mcg INHALER IH SCH ×2 (09:27→22:42)
[2018-10-19] MEDS: VARENICLINE TARTRATE 0.5 MG PO SCH (09:28)
[2018-10-19] MEDS: FLUTICASONE PROP 0.05% 16 GM NASAL SPRAY NS SCH ×2 (09:28→22:42)
[2018-10-19] MEDS: SERTRALINE HCL 50 MG TABLET (FP) PO SCH (09:30)
[2018-10-19] MEDS: PATIENT'S OWN MEDICATION (NON-FORMULARY) (Bictegrav/Emtricit/Tenofov Ala 1 EACH) PO SCH (09:30)
[2018-10-19] MEDS: ASPIRIN COATED 81 MG TABLET.EC PO SCH (09:30)
[2018-10-19] MEDS: RANITIDINE HCL 150 MG TABLET (FP) PO SCH ×2 (09:30→22:30)
[2018-10-19] MEDS: PRENATAL VITAMINS W/ FOLIC ACID TABLET (FP) PO SCH (09:30)
[2018-10-19] MEDS: amLODIPine BESYLATE 10 MG TABLET (FP) PO SCH (09:30)
[2018-10-19] MEDS: HYDROCHLOROTHIAZIDE 25 MG TABLET (FP) PO SCH (09:30)
--- NOTE | 2018-10-19 10:00 | PN ---
S CIWA - CIWA Score Nausea/Vomitin-No Nausea/No Vomiting Muscle Tremors: 1-None Visible, but Dante Anxiety: 1-Mildly Anxious Agitation: 0-Normal Activity Paroxysmal Sweats: No Perspiration Orientation: 0-Oriented Tacttile Disturbances: 0-None Auditory Disturbances: 0-None Visual Disturbances: 0-None Headache: 0-None Present CIWA-Ar Total Score: 2 BHS Progress Note (SOAP) Subjective: sweats anxiety Objective: 10/19/18 09:59 Vital Signs Temperature 98.6 F 10/19/18 09:31 Pulse Rate 85 10/19/18 09:31 Respiratory Rate 18 10/19/18 09:31 Blood Pressure 145/98 10/19/18 09:31 O2 Sat by Pulse Oximetry (%) aaox3 ambulating no acute distress repeated potassium pending Assessment: 10/19/18 10:00 mild withdrawal sx Plan: continue detox increase fluids d/c in am
--- NOTE | 2018-10-19 11:10 | PN ---
[facility] Progress Note Note: Patient is scheduled for discharge tomorrow. Scripts for 30 days supply of medications(Zoloft 100 mg/day, Seroquel 300 mg/hs)will be electronically transmitted to [facility] at [address] [place] [address]
[2018-10-19] MEDS: NICOTINE POLACRILEX 2 MG GUM BUC PRN ×2 (17:45→22:33)
[2018-10-19] MEDS: QUEtiapine FUMARATE 300 MG TABLET PO SCH (22:30)
[2018-10-19] MEDS: ATORVASTATIN CA 20 MG TABLET (FP) PO SCH (22:30)
[2018-10-19] MEDS: THIAMINE HCL 100 MG TABLET (FP) PO SCH (22:42)
[2018-10-20] MEDS ORDERED: chlordiazePOXIDE HCL 10 MG CAPSULE PO ONE (05:00)
--- NOTE | 2018-10-20 09:19 | DS ---
[facility] Detox Discharge Summary Admission Date: 10/16/18 Discharge Date: 10/20/18 - History Present History: Alcohol Dependence, Cocaine Dependence - Physical Exam Results Vital Signs: Vital Signs Temperature 97.5 F L 10/20/18 06:00 Pulse Rate 71 10/20/18 06:00 Respiratory Rate 18 10/20/18 06:00 Blood Pressure 137/92 10/20/18 06:00 O2 Sat by Pulse Oximetry (%) - Treatment Hospital Course: Detox Protocol Followed, Detoxed Safely, Responded well, Discharged Condition Good, Rehab Referral Accepted - Medication Discharge Medications: Ambulatory Orders Aspirin Coated [Ecotrin -] 81 mg PO DAILY #30 tablet.ec 08/01/17 Mometasone/Formoterol [Dulera 200 Mcg/5 Mcg Inhaler] 2 inh IH BID #1 hfa.aer.ad 08/01/17 Albuterol Sulfate Inhaler - [Ventolin HFA Inhaler -] 2 inh PO Q4H PRN #1 inh Amlodipine Besylate [Norvasc -] 10 mg PO DAILY #14 tablet 04/26/18 Atorvastatin Ca [Lipitor] 20 mg PO HS #30 tablet 04/26/18 Hydrochlorothiazide [Hctz -] 25 mg PO DAILY #30 tablet 04/26/18 Metoprolol Succinate [Toprol XL -] 50 mg PO DAILY #14 tab.sr.24h 04/26/18 Tiotropium [place] [Spiriva] 1 inh IH DAILY #1 cap.w.dev 04/26/18 Ranitidine HCl [Zantac] 150 mg PO BID 06/20/18 Bictegrav/Emtricit/Tenofov Ala [Biktarvy 50-200-25 mg Tablet] 1 each PO DAILY Varenicline Tartrate [Chantix] 0.5 mg PO DAILY 10/16/18 Quetiapine Fumarate [Seroquel -] 300 mg PO HS #30 tablet 10/19/18 Sertraline HCl [Zoloft] 100 mg PO DAILY #30 tablet 10/19/18 - Diagnosis (1) Hypokalemia Current Visit: Yes Status: Chronic (2) Alcohol dependence with uncomplicated withdrawal Current Visit: Yes Status: Chronic (3) Cocaine dependence Current Visit: Yes Status: Chronic Qualifiers: Substance use status: uncomplicated Qualified Code(s): F14.20 - Cocaine dependence, uncomplicated (4) Substance-induced anxiety disorder Current Visit: No Status: Acute (5) Substance-induced sleep disorder Current Visit: No Status: Acute (6) Substance-induced sleep disorder Current Visit: No Status: Acute (7) Asthma Current Visit: No Status: Chronic Qualifiers: Asthma severity: mild Asthma persistence: intermittent Asthma complication type: uncomplicated Qualified Code(s): J45.20 - Mild intermittent asthma, uncomplicated (8) COPD (chronic obstructive pulmonary disease) Current Visit: No Status: Chronic Qualifiers: COPD type: emphysema Emphysema type: other Qualified Code(s): J43.8 - Other emphysema (9) Essential hypertension Current Visit: Yes Status: Chronic (10) GERD (gastroesophageal reflux disease) Current Visit: Yes Status: Chronic Qualifiers: Esophagitis presence: without esophagitis Qualified Code(s): K21.9 - Gastro -esophageal reflux disease without esophagitis (11) HIV (human immunodeficiency virus infection) Current Visit: Yes Status: Chronic Qualifiers: HIV symptom status: asymptomatic Qualified Code(s): Z21 - Asymptomatic human immunodeficiency virus [HIV] infection status (12) HIV (human immunodeficiency virus infection) Current Visit: Yes Status: Chronic Qualifiers: HIV symptom status: unspecified Qualified Code(s): B20 - Human immunodeficiency virus [HIV] disease (13) Hypercholesterolemia Current Visit: No Status: Chronic (14) Mood disorder Current Visit: No Status: Chronic (15) Murmur, cardiac Current Visit: No Status: Chronic (16) Neuropathy Current Visit: No Status: Chronic (17) Nicotine dependence Current Visit: Yes Status: Chronic Qualifiers: Nicotine product type: cigarettes Substance use status: uncomplicated Qualified Code(s): F17.210 - Nicotine dependence, cigarettes, uncomplicated (18) History of syphilis Current Visit: No Status: Resolved (19) Bipolar disorder Current Visit: No Status: Ruled-out (20) MDD (major depressive disorder) Current Visit: No Status: Ruled-out - AMA Did Patient Leave Against Medical Advice: No ([facility])
[2018-10-20 09:40] VITALS: BP 140/100; PULSE 79; TEMP 98.1
[2018-10-20] MEDS: SERTRALINE HCL 50 MG TABLET (FP) PO SCH (10:18)
[2018-10-20] MEDS: PRENATAL VITAMINS W/ FOLIC ACID TABLET (FP) PO SCH (10:18)
[2018-10-20] MEDS: HYDROCHLOROTHIAZIDE 25 MG TABLET (FP) PO SCH (10:18)
[2018-10-20] MEDS: amLODIPine BESYLATE 10 MG TABLET (FP) PO SCH (10:18)
[2018-10-20] MEDS: RANITIDINE HCL 150 MG TABLET (FP) PO SCH (10:19)
[2018-10-20] MEDS: BUDESONIDE/FORMETEROL FUMARATE 160/4.5 mcg INHALER IH SCH (10:19)
[2018-10-20] MEDS: ASPIRIN COATED 81 MG TABLET.EC PO SCH (11:06)
[2018-10-20] MEDS: VARENICLINE TARTRATE 0.5 MG PO SCH (11:06)
[2018-10-20] MEDS: PATIENT'S OWN MEDICATION (NON-FORMULARY) (Bictegrav/Emtricit/Tenofov Ala 1 EACH) PO SCH (11:06)
[2018-10-20] MEDS: FLUTICASONE PROP 0.05% 16 GM NASAL SPRAY NS SCH (11:07)
== END 2018-10-20 11:05 | disposition other institution (70) | DRG 774 ==
LOC: YASAS 09:26 → Y6N 11:50
PROVIDERS: ADMIT Surgery; ATTEND Surgery
PROC: HZ2ZZZZ Detoxification Services for Substance Abuse Treatment (ICD-10-PCS; principal; 2018-10-16)
DX: F10.230 Alcohol dependence with withdrawal, uncomplicated (principal); F14.20 Cocaine dependence, uncomplicated; F17.210 Nicotine dependence, cigarettes, uncomplicated; F19.280 Other psychoactive substance dependence with psychoactive substance-induced anxiety disorder; F19.282 Other psychoactive substance dependence with psychoactive substance-induced sleep disorder; F39 Unspecified mood [affective] disorder; Z21 Asymptomatic human immunodeficiency virus [HIV] infection status; E87.6 Hypokalemia; E78.00 Pure hypercholesterolemia, unspecified; I10 Essential (primary) hypertension; J45.20 Mild intermittent asthma, uncomplicated; J43.8 Other emphysema; K21.9 Gastro-esophageal reflux disease without esophagitis; G62.9 Polyneuropathy, unspecified; R01.1 Cardiac murmur, unspecified; R26.89 Other abnormalities of gait and mobility; Z86.19 Personal history of other infectious and parasitic diseases
CPT/HCPCS: 36415; 80053; 81025; 84132; 85027; 86593

== ENCOUNTER 2018-10-20 11:08 | Inpatient (IN) | payer OTHER ==
--- NOTE | 2018-10-20 10:37 | HP ---
[facility] Rehab Assess/Revision - Admission History Ad[facility] - Findings Detox History & Physical reviewed: Yes Concur with findings: Yes Inpatient Rehab Admission - Rehab Decision to Admit Inpatient rehab admission?: Yes - Initial Determination Are CD services needed?: Yes Free of communicable disease: Yes Not in need of hospitalization: Yes - Rehab Admission Criteria Previous failed treatment: Yes Poor recovery environment: Yes Comorbidities: Yes Lacks judgement: Yes Patient is meeting Inpatient Rehab admission criteria:: Yes
[~2018-10-20 11:08] MED LIST changes: +ACETAMINOPHEN 325 MG TABLET (FP) PO PRN; -ATOVAQUONE 750 MG/5 ML (UNIT-DOSE PACKAGING) PO SCH; +IBUPROFEN 400 MG TABLET (FP) PO PRN; +LOPERAMIDE HCL 2 MG CAPSULE PO PRN; +MAG HYDROX/AL HYDROX/SIMETH 30 ML UNIT-DOSE CUP PO PRN; +MAGNESIUM CITRATE 300 ML BOTTLE PO PRN; +MAGNESIUM HYDROX 2400MG/30ML ORAL SUSPENSION 30 ML CUP PO PRN; +MENTHOL/PHENOL 1 EACH UD MM PRN; +P-EPHED 60MG/TRIPROLIDI 2.5MG TABLET PO PRN; +guaiFENesin 200 MG/10 ML 10 ML UNIT-DOSE CUPS PO PRN; +hydrOXYzine PAMOATE 50 MG CAPSULE (FP) PO PRN
[2018-10-20] MEDS ORDERED: ALBUTEROL SO4 8 GM HFA INHALER IH PRN (13:52)
[2018-10-20] MEDS ORDERED: PT OWN MED DRAWER 7, Y5N ONE (20:33)
[2018-10-20] MEDS: ATORVASTATIN CA 20 MG TABLET (FP) PO SCH (21:04)
[2018-10-20] MEDS: RANITIDINE HCL 150 MG TABLET (FP) PO SCH (21:04)
[2018-10-20] MEDS: THIAMINE HCL 100 MG TABLET (FP) PO SCH (21:04)
[2018-10-20] MEDS: FLUTICASONE PROP 0.05% 16 GM NASAL SPRAY NS SCH (21:04)
[2018-10-20] MEDS: BUDESONIDE/FORMETEROL FUMARATE 160/4.5 mcg INHALER IH SCH (21:05)
[2018-10-20] MEDS: QUEtiapine FUMARATE 300 MG TABLET PO SCH (21:05)
[2018-10-20] MEDS: NICOTINE POLACRILEX 4 MG GUM BUC PRN (22:15)
[2018-10-21] MEDS: BICTEGRAV/EMTRICIT/TENOFOV (BIKTARVY) 50-200-25 MG TABLET PO SCH (07:22)
[2018-10-21] MEDS ORDERED: PT OWN MED DRAWER 7, Y5N ONE ×4 (09:06→16:09)
[2018-10-21] MEDS: ASPIRIN COATED 81 MG TABLET.EC PO SCH (09:30)
[2018-10-21] MEDS: FLUTICASONE PROP 0.05% 16 GM NASAL SPRAY NS SCH ×2 (09:30→21:01)
[2018-10-21] MEDS: HYDROCHLOROTHIAZIDE 25 MG TABLET (FP) PO SCH (09:30)
[2018-10-21] MEDS: SERTRALINE HCL 50 MG TABLET (FP) PO SCH (09:30)
[2018-10-21] MEDS: amLODIPine BESYLATE 10 MG TABLET (FP) PO SCH (09:30)
[2018-10-21] MEDS: RANITIDINE HCL 150 MG TABLET (FP) PO SCH ×2 (09:30→21:00)
[2018-10-21] MEDS: PRENATAL VITAMINS W/ FOLIC ACID TABLET (FP) PO SCH (09:31)
[2018-10-21] MEDS: TIOTROPIUM BROMIDE 2.5 MCG (SPIRIVA) RESPIMAT INHALER IH SCH (09:35)
[2018-10-21] MEDS: BUDESONIDE/FORMETEROL FUMARATE 160/4.5 mcg INHALER IH SCH ×2 (09:35→21:01)
[2018-10-21] MEDS: NICOTINE 21 MG/24 HOURS TOPICAL PATCH TD SCH (09:36)
[2018-10-21] MEDS: NICOTINE POLACRILEX 4 MG GUM BUC PRN ×2 (09:37→17:28)
[2018-10-21] MEDS ORDERED: VARENICLINE TARTRATE 0.5 MG TAB PO SCH (10:00)
[2018-10-21] MEDS ORDERED: VARENICLINE TARTRATE 0.5 MG TAB PO ONE (13:00)
[2018-10-21] MEDS: THIAMINE HCL 100 MG TABLET (FP) PO SCH (21:00)
[2018-10-21] MEDS: ATORVASTATIN CA 20 MG TABLET (FP) PO SCH (21:00)
[2018-10-21] MEDS: QUEtiapine FUMARATE 300 MG TABLET PO SCH (21:01)
[2018-10-22] MEDS: BICTEGRAV/EMTRICIT/TENOFOV (BIKTARVY) 50-200-25 MG TABLET PO SCH (07:35)
[2018-10-22] MEDS ORDERED: PT OWN MED DRAWER 7, Y5N ONE ×2 (08:44→19:17)
[2018-10-22] MEDS: ASPIRIN COATED 81 MG TABLET.EC PO SCH (09:11)
[2018-10-22] MEDS: FLUTICASONE PROP 0.05% 16 GM NASAL SPRAY NS SCH ×2 (09:11→21:14)
[2018-10-22] MEDS: HYDROCHLOROTHIAZIDE 25 MG TABLET (FP) PO SCH (09:11)
[2018-10-22] MEDS: NICOTINE 21 MG/24 HOURS TOPICAL PATCH TD SCH (09:12)
[2018-10-22] MEDS: amLODIPine BESYLATE 10 MG TABLET (FP) PO SCH (09:12)
[2018-10-22] MEDS: TIOTROPIUM BROMIDE 2.5 MCG (SPIRIVA) RESPIMAT INHALER IH SCH (09:12)
[2018-10-22] MEDS: PRENATAL VITAMINS W/ FOLIC ACID TABLET (FP) PO SCH (09:12)
[2018-10-22] MEDS: BUDESONIDE/FORMETEROL FUMARATE 160/4.5 mcg INHALER IH SCH (09:13)
[2018-10-22] MEDS: RANITIDINE HCL 150 MG TABLET (FP) PO SCH ×2 (09:13→21:13)
[2018-10-22] MEDS: SERTRALINE HCL 50 MG TABLET (FP) PO SCH (09:13)
[2018-10-22] MEDS: VARENICLINE TARTRATE 0.5 MG TAB PO SCH (12:22)
[2018-10-22] MEDS: NICOTINE POLACRILEX 4 MG GUM BUC PRN ×3 (12:41→23:19)
[2018-10-22] MEDS: MELATONIN 5 MG TABLETS PO PRN (21:12)
[2018-10-22] MEDS: QUEtiapine FUMARATE 300 MG TABLET PO SCH (21:13)
[2018-10-22] MEDS: THIAMINE HCL 100 MG TABLET (FP) PO SCH (21:14)
[2018-10-22] MEDS: ATORVASTATIN CA 20 MG TABLET (FP) PO SCH (21:14)
[2018-10-23] MEDS ORDERED: PT OWN MED DRAWER 7, Y5N ONE ×3 (05:58→09:07)
[2018-10-23] MEDS: BICTEGRAV/EMTRICIT/TENOFOV (BIKTARVY) 50-200-25 MG TABLET PO SCH (07:34)
[2018-10-23] MEDS: NICOTINE POLACRILEX 4 MG GUM BUC PRN ×4 (07:35→23:17)
--- NOTE | 2018-10-23 08:58 | PN ---
BHS Progress Note (SOAP) Subjective: Pt c/o redness and watery/itchiness of both eyes. reports hx of allergies. Objective: 10/23/18 08:54 Vital Signs - 24 hr 10/22/18 10/23/18 10/23/18 09:01 00:30 03:30 Temperature Pulse Rate 82 Respiratory 17 18 Rate Blood Pressure 126/85 10/23/18 07:11 Temperature 97.6 F Pulse Rate 82 Respiratory 18 Rate Blood Pressure 147/98 Assessment: 10/23/18 08:54 Seasonal allergy Plan: Visine-A apply as directed.
[2018-10-23] MEDS: VARENICLINE TARTRATE 0.5 MG TAB PO SCH (09:42)
[2018-10-23] MEDS: RANITIDINE HCL 150 MG TABLET (FP) PO SCH ×2 (09:43→21:06)
[2018-10-23] MEDS: HYDROCHLOROTHIAZIDE 25 MG TABLET (FP) PO SCH (09:43)
[2018-10-23] MEDS: PRENATAL VITAMINS W/ FOLIC ACID TABLET (FP) PO SCH (09:43)
[2018-10-23] MEDS: amLODIPine BESYLATE 10 MG TABLET (FP) PO SCH (09:43)
[2018-10-23] MEDS: SERTRALINE HCL 50 MG TABLET (FP) PO SCH (09:43)
[2018-10-23] MEDS: FLUTICASONE PROP 0.05% 16 GM NASAL SPRAY NS SCH ×2 (09:43→21:06)
[2018-10-23] MEDS: ASPIRIN COATED 81 MG TABLET.EC PO SCH (09:43)
[2018-10-23] MEDS: TIOTROPIUM BROMIDE 2.5 MCG (SPIRIVA) RESPIMAT INHALER IH SCH (09:46)
[2018-10-23] MEDS: NAPHAZOLINE/PHENIRAMINE OPHTHALMIC 15 ML BOTTLE OU PRN (09:46)
[2018-10-23] MEDS: NICOTINE 21 MG/24 HOURS TOPICAL PATCH TD SCH (09:47)
[2018-10-23] MEDS: MELATONIN 5 MG TABLETS PO PRN (21:06)
[2018-10-23] MEDS: QUEtiapine FUMARATE 300 MG TABLET PO SCH (21:06)
[2018-10-23] MEDS: ATORVASTATIN CA 20 MG TABLET (FP) PO SCH (21:06)
[2018-10-23] MEDS: THIAMINE HCL 100 MG TABLET (FP) PO SCH (21:06)
[2018-10-24] MEDS ORDERED: PT OWN MED DRAWER 7, Y5N ONE ×3 (05:33→09:34)
[2018-10-24] MEDS: BICTEGRAV/EMTRICIT/TENOFOV (BIKTARVY) 50-200-25 MG TABLET PO SCH (07:49)
[2018-10-24] MEDS: NICOTINE POLACRILEX 4 MG GUM BUC PRN ×3 (07:50→17:14)
[2018-10-24] MEDS: VARENICLINE TARTRATE 0.5 MG TAB PO SCH (09:31)
[2018-10-24] MEDS: HYDROCHLOROTHIAZIDE 25 MG TABLET (FP) PO SCH (09:32)
[2018-10-24] MEDS: ASPIRIN COATED 81 MG TABLET.EC PO SCH (09:32)
[2018-10-24] MEDS: FLUTICASONE PROP 0.05% 16 GM NASAL SPRAY NS SCH ×2 (09:32→21:02)
[2018-10-24] MEDS: NICOTINE 21 MG/24 HOURS TOPICAL PATCH TD SCH (09:33)
[2018-10-24] MEDS: TIOTROPIUM BROMIDE 2.5 MCG (SPIRIVA) RESPIMAT INHALER IH SCH (09:33)
[2018-10-24] MEDS: PRENATAL VITAMINS W/ FOLIC ACID TABLET (FP) PO SCH (09:33)
[2018-10-24] MEDS: amLODIPine BESYLATE 10 MG TABLET (FP) PO SCH (09:33)
[2018-10-24] MEDS: RANITIDINE HCL 150 MG TABLET (FP) PO SCH ×2 (09:35→21:00)
[2018-10-24] MEDS: SERTRALINE HCL 50 MG TABLET (FP) PO SCH (09:35)
[2018-10-24] MEDS: ATORVASTATIN CA 20 MG TABLET (FP) PO SCH (21:00)
[2018-10-24] MEDS: THIAMINE HCL 100 MG TABLET (FP) PO SCH (21:00)
[2018-10-24] MEDS: QUEtiapine FUMARATE 300 MG TABLET PO SCH (21:01)
[2018-10-24] MEDS: MELATONIN 5 MG TABLETS PO PRN (21:01)
[2018-10-25] MEDS: BICTEGRAV/EMTRICIT/TENOFOV (BIKTARVY) 50-200-25 MG TABLET PO SCH (07:35)
[2018-10-25] MEDS ORDERED: PT OWN MED DRAWER 7, Y5N ONE ×3 (08:17→08:47)
[2018-10-25] MEDS: NAPHAZOLINE/PHENIRAMINE OPHTHALMIC 15 ML BOTTLE OU PRN (08:25)
[2018-10-25] MEDS: NICOTINE POLACRILEX 4 MG GUM BUC PRN ×3 (08:26→21:15)
[2018-10-25] MEDS: SERTRALINE HCL 50 MG TABLET (FP) PO SCH (10:18)
[2018-10-25] MEDS: VARENICLINE TARTRATE 0.5 MG TAB PO SCH (10:18)
[2018-10-25] MEDS: PRENATAL VITAMINS W/ FOLIC ACID TABLET (FP) PO SCH (10:18)
[2018-10-25] MEDS: amLODIPine BESYLATE 10 MG TABLET (FP) PO SCH (10:18)
[2018-10-25] MEDS: RANITIDINE HCL 150 MG TABLET (FP) PO SCH ×2 (10:18→21:13)
[2018-10-25] MEDS: ASPIRIN COATED 81 MG TABLET.EC PO SCH (10:19)
[2018-10-25] MEDS: FLUTICASONE PROP 0.05% 16 GM NASAL SPRAY NS SCH ×2 (10:19→21:13)
[2018-10-25] MEDS: TIOTROPIUM BROMIDE 2.5 MCG (SPIRIVA) RESPIMAT INHALER IH SCH (10:19)
[2018-10-25] MEDS: NICOTINE 21 MG/24 HOURS TOPICAL PATCH TD SCH (10:19)
[2018-10-25] MEDS: HYDROCHLOROTHIAZIDE 25 MG TABLET (FP) PO SCH (10:20)
[2018-10-25] MEDS: THIAMINE HCL 100 MG TABLET (FP) PO SCH (21:13)
[2018-10-25] MEDS: QUEtiapine FUMARATE 300 MG TABLET PO SCH (21:13)
[2018-10-25] MEDS: ATORVASTATIN CA 20 MG TABLET (FP) PO SCH (21:13)
[2018-10-26] MEDS ORDERED: PT OWN MED DRAWER 7, Y5N ONE ×2 (03:12→09:10)
[2018-10-26] MEDS: NICOTINE POLACRILEX 4 MG GUM BUC PRN ×4 (07:45→21:16)
[2018-10-26] MEDS: BICTEGRAV/EMTRICIT/TENOFOV (BIKTARVY) 50-200-25 MG TABLET PO SCH (07:45)
[2018-10-26] MEDS: SERTRALINE HCL 50 MG TABLET (FP) PO SCH (09:51)
[2018-10-26] MEDS: PRENATAL VITAMINS W/ FOLIC ACID TABLET (FP) PO SCH (09:51)
[2018-10-26] MEDS: ASPIRIN COATED 81 MG TABLET.EC PO SCH (09:52)
[2018-10-26] MEDS: VARENICLINE TARTRATE 0.5 MG TAB PO SCH (09:52)
[2018-10-26] MEDS: HYDROCHLOROTHIAZIDE 25 MG TABLET (FP) PO SCH (09:52)
[2018-10-26] MEDS: FLUTICASONE PROP 0.05% 16 GM NASAL SPRAY NS SCH ×2 (09:52→21:14)
[2018-10-26] MEDS: amLODIPine BESYLATE 10 MG TABLET (FP) PO SCH (09:52)
[2018-10-26] MEDS: RANITIDINE HCL 150 MG TABLET (FP) PO SCH ×2 (09:52→21:14)
[2018-10-26] MEDS: TIOTROPIUM BROMIDE 2.5 MCG (SPIRIVA) RESPIMAT INHALER IH SCH (09:53)
[2018-10-26] MEDS: NAPHAZOLINE/PHENIRAMINE OPHTHALMIC 15 ML BOTTLE OU PRN ×2 (09:53→21:14)
[2018-10-26] MEDS: NICOTINE 21 MG/24 HOURS TOPICAL PATCH TD SCH (09:53)
[2018-10-26] MEDS ORDERED: COLLOIDAL OATMEAL 1 BAR EACH TP PRN (10:23)
[2018-10-26] MEDS: THIAMINE HCL 100 MG TABLET (FP) PO SCH (21:14)
[2018-10-26] MEDS: QUEtiapine FUMARATE 300 MG TABLET PO SCH (21:14)
[2018-10-26] MEDS: ATORVASTATIN CA 20 MG TABLET (FP) PO SCH (21:14)
[2018-10-26] MEDS: MELATONIN 5 MG TABLETS PO PRN (21:15)
[2018-10-27] MEDS ORDERED: PT OWN MED DRAWER 7, Y5N ONE (05:52)
[2018-10-27] MEDS: NICOTINE POLACRILEX 4 MG GUM BUC PRN ×3 (06:59→17:53)
[2018-10-27] MEDS: BICTEGRAV/EMTRICIT/TENOFOV (BIKTARVY) 50-200-25 MG TABLET PO SCH (07:14)
[2018-10-27] MEDS: VARENICLINE TARTRATE 0.5 MG TAB PO SCH (10:06)
[2018-10-27] MEDS: amLODIPine BESYLATE 10 MG TABLET (FP) PO SCH (10:08)
[2018-10-27] MEDS: ASPIRIN COATED 81 MG TABLET.EC PO SCH (10:08)
[2018-10-27] MEDS: FLUTICASONE PROP 0.05% 16 GM NASAL SPRAY NS SCH ×2 (10:08→21:21)
[2018-10-27] MEDS: NICOTINE 21 MG/24 HOURS TOPICAL PATCH TD SCH (10:08)
[2018-10-27] MEDS: HYDROCHLOROTHIAZIDE 25 MG TABLET (FP) PO SCH (10:08)
[2018-10-27] MEDS: SERTRALINE HCL 50 MG TABLET (FP) PO SCH (10:09)
[2018-10-27] MEDS: RANITIDINE HCL 150 MG TABLET (FP) PO SCH ×2 (10:09→21:19)
[2018-10-27] MEDS: PRENATAL VITAMINS W/ FOLIC ACID TABLET (FP) PO SCH (10:09)
[2018-10-27] MEDS: TIOTROPIUM BROMIDE 2.5 MCG (SPIRIVA) RESPIMAT INHALER IH SCH (10:09)
--- NOTE | 2018-10-27 13:27 | PN ---
BHS Progress Note (SOAP) Subjective: Patient to be discharged tomorrow. HOSPITAL COURSE: patient completed detox and was transferred to rehab on 10/20. While in rehab, she attended all groups, had individual sessions with her counselor,was adherent to the treatment plan and her medication regimen. Objective: General: pleasant, able to make needs known HEENTM: BASIL, CN2-12 intact SKIN: Clear, warm, dry CARDIAC: S1 S2 audible, regular RESPIRATORY: RR easy and unlabored, lungs clear GI: Abd soft, non-tender, non-distended, +BS MUSCULARSKELETAL: Full ROM and weight bearing, ambulates with ease NEURO: no neurological deficits noted, A+Ox3, 10/27/18 13:24 Vital Signs (72 hours) 10/25/18 10/25/18 10/25/18 00:30 03:30 10:27 Temperature Pulse Rate 83 Respiratory 18 18 18 Rate Blood Pressure 130/83 10/26/18 10/26/18 10/26/18 00:30 03:30 07:15 Temperature Pulse Rate Respiratory 18 18 18 Rate Blood Pressure 10/26/18 10/27/18 10/27/18 10:00 00:30 03:30 Temperature 97.7 F Pulse Rate 76 Respiratory 18 18 18 Rate Blood Pressure 117/81 10/27/18 10/27/18 07:19 09:30 Temperature 97.3 F L Pulse Rate 81 82 Respiratory 18 18 Rate Blood Pressure 137/92 142/96 Assessment: 10/27/18 13:27 Medically stable for discharge Discharge Dx: Cocaine Dependence HIV infection HTN COPD GERD 10/27/18 13:28 Plan: Coordination of ongoing care: Patient will continue with treatment at [facility]. She will continue with medical care with Dr. Kuo at [facility], she will do a same day appointment with her PCP because it is time for her HIV bloodwork. Discussed with patient the need to continue to be tobacco free and eat a healthy diet. Patient agreed. Prescriptions were transmitted to her pharmacy.
[2018-10-27] MEDS: THIAMINE HCL 100 MG TABLET (FP) PO SCH (21:19)
[2018-10-27] MEDS: MELATONIN 5 MG TABLETS PO PRN (21:20)
[2018-10-27] MEDS: ATORVASTATIN CA 20 MG TABLET (FP) PO SCH (21:20)
[2018-10-27] MEDS: QUEtiapine FUMARATE 300 MG TABLET PO SCH (21:21)
[2018-10-28] MEDS ORDERED: PT OWN MED DRAWER 7, Y5N ONE (03:15)
[2018-10-28 06:52] VITALS: BP 129/88; PULSE 78; TEMP 97.4
[2018-10-28] MEDS: BICTEGRAV/EMTRICIT/TENOFOV (BIKTARVY) 50-200-25 MG TABLET PO SCH (07:02)
== END 2018-10-28 07:05 | disposition home or self-care (01) | DRG 772 ==
LOC: YASAS 11:08 → Y3E 11:09
PROVIDERS: ADMIT Neuromusculoskeletal Medicine & OMM; ATTEND Neuromusculoskeletal Medicine & OMM
PROC: HZ42ZZZ Group Counseling for Substance Abuse Treatment, Cognitive-Behavioral (ICD-10-PCS; principal; 2018-10-20)
DX: F10.20 Alcohol dependence, uncomplicated (principal); Z21 Asymptomatic human immunodeficiency virus [HIV] infection status; I10 Essential (primary) hypertension; J44.9 Chronic obstructive pulmonary disease, unspecified; K21.9 Gastro-esophageal reflux disease without esophagitis; J30.2 Other seasonal allergic rhinitis

== ENCOUNTER 2019-01-15 09:26 | Inpatient (IN) | payer OTHER ==
[2019-01-15 10:12] VITALS: BMI 28.0
--- NOTE | 2019-01-15 10:57 | HP ---
CIWA Score Nausea/Vomitin-Mild Nausea/No Vomiting Muscle Tremors: 3 Anxiety: 4-Mod. Anxious/Guarded Agitation: 3 Paroxysmal Sweats: 1-Minimal Palms Moist Orientation: 0-Oriented Tacttile Disturbances: 1-Very Mild Itch/Numbness (itching) Auditory Disturbances: 0-None Visual Disturbances: 0-None Headache: 3-Moderate CIWA-Ar Total Score: 16 - Admission Criteria OASAS Guidelines: Admission for Medically Managed Detox: Requires at least one of the followin. CIWA greater than 12 2. Seizures within the past 24 hours 3. Delirium tremens within the past 24 hours 4. Hallucinations within the past 24 hours 5. Acute intervention needed for co occurring medical disorder 6. Acute intervention needed for co occurring psychiatric disorder 7. Severe withdrawal that cannot be handled at a lower level of care (continued vomiting, continued diarrhea, abnormal vital signs) requiring intravenous medication and/or fluids 8. Admitting History and Physical - Admission Chief Complaint: alcohol detox History of Present Illness: Pt with hx of alcohol and cocaine dependence seeking detox treatment. History Source: Patient Limitations to Obtaining History: No Limitations - Past Medical History [employer]ER: Yes: Migraine ("i used to be on Imitrex") Cardiovascular: Yes: HTN Pulmonary: Yes: Asthma, COPD Gastrointestinal: Yes: GERD (on Zantac daily) Renal/: Yes: UTI (in the past) Reproductive: Yes: Ectopic (in 1994), Postmenopausal (at age 47) ...LMP: 08/12/13 ...: No ...: 3 ...Para: 2 Infectious Disease: Yes: HIV, STD's (Hx syphilis/Gonorrhea at 15) Psych: Yes: Depression Musculoskeletal: Yes: Chronic low back pain ENT: Yes: Allergic Rhinitis (on flonase), Other - Past Surgical History Additional Past Surgical History: Ectopic intervention in 1994 - Smoking History Smoking history: Current every day smoker Have you smoked in the past 12 months: Yes Aproximately how many cigarettes per day: 5 - Alcohol/Substance Use Hx Alcohol Use: Yes Number of Drinks Daily: 3 (3 cobra/1-2 pt vodka) History of Substance Use: reports: Cocaine Date of Last Use: 01/15/19 (After d/c from [facility] today) - Social History Usual Living Arrangement: Yes: Other (SRO-Single Room Occupancy arrangement) Do you think of yourself as: Straight/Heterosexual ADL: Independent History of Recent Travel: No Other Social History: Not employed Admission ROS S - [facility] Chief Complaint: "I relapsed again. I'm overwhelmed and a lot in my plate. My plate is full. my sister is getting ready to get her breast cut off. My fell and had brain bleed surgery. So I'm back here to [facility] to get it together to help us stay together". Allergies/Adverse Reactions: Allergies Allergy/AdvReac Type Severity Reaction Status Date / Time lisinopril Allergy Severe Swelling Verified 01/15/19 09:55 turkey Allergy Severe Rash Verified 01/15/19 09:55 Fish Containing Products Allergy Rash Verified 01/15/19 09:55 erythromycin base AdvReac Severe Rash Verified 01/15/19 09:55 sulfamethoxazole AdvReac Severe Rash Verified 01/15/19 09:55 [From Bactrim] trimethoprim [From Bactrim] AdvReac Severe Rash Verified 01/15/19 09:55 History of Present Illness: Pt is a 53 y/o female with a hx of alcohol and crack/cocaine dependence seeking detox treatment who reports she relapsed since November of this year. Pt has been to this facility in the past for treatment. Pt was referred to this facility today from [facility] where she presented for c/o Back pain and shortness of breath. Pt states she was medicated with Lidocaine patch (in place on back) . Pt has a PMHx of Asthma,COPD,HTN,HIV+, and PPsychHx of Depression. Reports suicidal attempt at 11 y/o by taking mother's pills because was refused to ride a bike on . Exam Limitations: No Limitations - Ebola screening Have you traveled outside of the country in the last 21 days: No Have you had contact with anyone from an Ebola affected area: No Have you been sick,other than usual withdrawal symptoms: No Do you have a fever: No - Review of Systems Constitutional: Night Sweats EENT: reports: Blurred Vision, Nose Congestion (on flonase), Dental Problems ( missing teeth/cracked teeth) Respiratory: reports: Shortness of Breath (hx asthma/copd) Cardiac: reports: Lightheadedness (and dizzy sometimes), Palpitations GI: reports: Nausea : reports: No Symptoms Reported Musculoskeletal: reports: Back Pain Integumentary: reports: Other ("sometimes I break out on a welt") Neuro: reports: Headache, Tremors, Dizziness Endocrine: reports: No Symptoms Reported Hematology: reports: No Symptoms Reported Psychiatric: reports: Judgement Intact, Orientated x3, Depressed Other Systems: Reviewed and Negative Patient History - Patient Medical History Hx Anemia: No Hx Asthma: Yes (on med) Hx Chronic Obstructive Pulmonary Disease (COPD): Yes (on med) Hx Cancer: No Hx Cardiac Disorders: No Hx Congestive Heart Failure: No Hx Hypertension: Yes (on med) Hx Hypercholesterolemia: Yes (on med) Hx Pacemaker: No HX Cerebrovascular Accident: No Hx Seizures: No Hx Dementia: No Hx Diabetes: No Hx Gastrointestinal Disorders: Yes (GERD) Hx Liver Disease: No Hx Genitourinary Disorders: No Hx Sexually Transmitted Disorders: Yes (HIV,Syphilis & gonorrhea,) Hx Renal Disease (ESRD): No Hx Thyroid Disease: No Hx Human Immunodeficiency Virus (HIV): Yes (ON BICTARVY ,VL uknown at this time ) Hx Hepatitis C: No Hx Depression: Yes Hx Suicide Attempt: Yes (with pills at age 11) Hx Bipolar Disorder: Yes Hx Schizophrenia: No - Patient Surgical History Past Surgical History: Yes Hx Neurologic Surgery: No Hx Cataract Extraction: No Hx Cardiac Surgery: No Hx Lung Surgery: No Hx Breast Surgery: No Hx Breast Biopsy: No Hx Abdominal Surgery: No Hx Appendectomy: No Hx Cholecystectomy: No Hx Genitourinary Surgery: No Hx Section: No Hx Orthopedic Surgery: No Hx Hysterectomy: No Other Surgical History: ectopic at age 35 Anesthesia Reaction: No - PPD History Previous Implant?: Yes Documented Results: Negative w/proof Date: 09/15/17 (good till 2019) Results: 0mm PPD to be Administered?: No - Reproductive History Patient is a Female of Child Bearing Age (11 -55 yrs old): Yes (postmenopausal woman) Last Menstrual Period: 08/12/13 Patient : No - Smoking Cessation Smoking history: Current every day smoker Have you smoked in the past 12 months: Yes Aproximately how many cigarettes per day: 20 Cigars Per Day: 0 Hx Chewing Tobacco Use: No Initiated information on smoking cessation: Yes 'Breaking Loose' booklet given: 01/15/19 - Substance & Tx. History Hx Alcohol Use: Yes (beer/vodka) Hx Substance Use: Yes (cocaine/crack) Substance Use Type: Alcohol, Cocaine Hx Substance Use Treatment: Yes (last tx at [facility]) - Substances abused Alcohol Substance route: Oral Frequency: Daily Amount used: 4 pts. liquor, 6 beers ( 24 oz cans) Age of first use: 16 Date of last use: 01/15/19 Cocaine Substance route: Smoking Frequency: Daily Amount used: $200 Age of first use: 18 Date of last use: 08/13/18 Crack Substance route: Smoking Frequency: Daily Amount used: $200-$300 Age of first use: 18 Date of last use: 01/13/19 Admission Physical Exam S - Vital Signs Vital Signs: Vital Signs - 24 hr 01/15/19 01/15/19 10:01 10:41 Temperature 97.5 F L 97.5 F L Pulse Rate 91 H 91 H Respiratory 16 16 Rate Blood Pressure 142/98 142/98 - Physical General Appearance: Yes: No Apparent Distress, Nourished, Anxious HEENTM: Yes: EOMI, Normocephalic, DAIANA, Pharynx Normal Respiratory: Yes: Chest Non-Tender, No Respiratory Distress, Wheezing (right lung bases. Left lung bases cta.) Neck: Yes: No masses,lesions,Nodules, Supple, Trachea in good position Breast: Yes: Breast Exam Deferred Cardiology: Yes: Regular Rhythm, Regular Rate, S1, S2 Abdominal: Yes: Normal Bowel Sounds, Non Tender, Flat, Soft Genitourinary: Yes: Other (n/c) Musculoskeletal: Yes: full range of Motion, Gait Steady Extremities: Yes: Normal Range of Motion, Non-Tender Neurological: Yes: access lead II-XII NML intact, Fully Oriented, Alert, Motor Strength 5/5 Integumentary: Yes: Dry, Warm Lymphatic: Yes: Within Normal Limits - Diagnostic (1) Alcohol dependence with uncomplicated withdrawal Current Visit: Yes Status: Acute (2) Asthma Current Visit: Yes Status: Chronic Qualifiers: Asthma severity: mild Asthma persistence: intermittent Asthma complication type: uncomplicated Qualified Code(s): J45.20 - Mild intermittent asthma, uncomplicated (3) COPD (chronic obstructive pulmonary disease) Current Visit: No Status: Chronic Qualifiers: COPD type: emphysema Emphysema type: other Qualified Code(s): J43.8 - Other emphysema (4) Cocaine dependence Current Visit: Yes Status: Acute Qualifiers: Substance use status: uncomplicated Qualified Code(s): F14.20 - Cocaine dependence, uncomplicated (5) Essential hypertension Current Visit: Yes Status: Chronic (6) GERD (gastroesophageal reflux disease) Current Visit: Yes Status: Chronic Qualifiers: Esophagitis presence: without esophagitis Qualified Code(s): K21.9 - Gastro -esophageal reflux disease without esophagitis (7) HIV (human immunodeficiency virus infection) Current Visit: Yes Status: Chronic Qualifiers: HIV symptom status: asymptomatic Qualified Code(s): Z21 - Asymptomatic human immunodeficiency virus [HIV] infection status (8) Hypercholesterolemia Current Visit: Yes Status: Chronic (9) Nicotine dependence Current Visit: Yes Status: Chronic Qualifiers: Nicotine product type: cigarettes Substance use status: uncomplicated Qualified Code(s): F17.210 - Nicotine dependence, cigarettes, uncomplicated (10) History of syphilis Current Visit: Yes Status: Resolved Comment: states treated Cleared for Admission S - Detox or Rehab [facility] Level of Care: Medically Managed Detox Regimen/Protocol: Librium Breathalyzer - Breathalyzer Breathalyzer: 0.025 Urine Drug Screen - Test Device Lot number: [id number] Expiration date: 09/11/20 - Control Is test valid?: Yes - Results Drug screen NEGATIVE: No Urine drug screen results: CHRISTOPHE-Cocaine Inpatient Rehab Admission - Rehab Decision to Admit Inpatient rehab admission?: No
[2019-01-15] MEDS ORDERED: ONDANSETRON *ODT* 4 MG TABLET SL PRN (11:32)
[2019-01-15] MEDS ORDERED: MENTHOL/PHENOL 1 EACH UD MM PRN (11:32)
[2019-01-15] MEDS ORDERED: MAG HYDROX/AL HYDROX/SIMETH 30 ML UNIT-DOSE CUP PO PRN (11:32)
[2019-01-15] MEDS ORDERED: BISMUTH SUBSALICYLATE 262 MG/15 ML BTL PO PRN (11:32)
[2019-01-15] MEDS ORDERED: chlordiazePOXIDE HCL 10 MG CAPSULE PO PRN (11:32)
[2019-01-15] MEDS ORDERED: MELATONIN 5 MG TABLETS PO PRN (11:32)
[2019-01-15] MEDS ORDERED: hydrOXYzine PAMOATE 25 MG CAPSULE (FP) PO PRN (11:32)
[2019-01-15] MEDS ORDERED: METHOCARBAMOL 500 MG TABLET PO PRN (11:32)
[2019-01-15] MEDS ORDERED: MAGNESIUM HYDROX 2400MG/30ML ORAL SUSPENSION 30 ML CUP PO PRN (11:32)
[2019-01-15] MEDS ORDERED: ACETAMINOPHEN 325 MG TABLET (FP) PO PRN ×2 (11:32)
[2019-01-15] MEDS ORDERED: MAGNESIUM CITRATE 300 ML BOTTLE PO PRN (11:32)
[2019-01-15] MEDS: chlordiazePOXIDE HCL 25 MG CAPSULE PO SCH ×2 (12:49→22:07)
[2019-01-15] MEDS ORDERED: PATIENT'S OWN MEDICATION (NON-FORMULARY) (Tiotropium Bromide [Spiriva] 1 INH) IH SCH (13:30)
[2019-01-15] MEDS ORDERED: VARENICLINE TARTRATE 0.5 MG TAB PO SCH (14:00)
[2019-01-15] MEDS: ASPIRIN COATED 81 MG TABLET.EC PO SCH (15:05)
[2019-01-15 15:08] LABS: HEMATOCRIT 39.9 % (32.4-45.2); HEMOGLOBIN 13.3 GM/dL (10.7-15.3); MCH 28.7 pg (25.7-33.7); MCHC 33.4 g/dl (32.0-36.0); MEAN CELL VOLUME 86.2 fl (80-96); MEAN PLT VOLUME 8.4 fl (7.5-11.1); PLATELET COUNT 236 K/MM3 (134-434); RBC 4.63 M/mm3 (3.60-5.2); RDW 14.2 % (11.6-15.6); WHITE BLOOD COUNT 2.9 K/mm3 (4.0-10.0)
[2019-01-15 15:13] LABS: ALBUMIN 3.9 g/dl (3.4-5.0); BILIRUBIN,TOTAL 0.3 mg/dL (0.2-1); CALCIUM 9.4 mg/dL (8.5-10.1); CREATININE 0.8 mg/dL (0.55-1.3); POTASSIUM 3.7 mmol/L (3.5-5.1)
[2019-01-15] MEDS: IBUPROFEN 400 MG TABLET (FP) PO PRN (15:24)
[2019-01-15] MEDS ORDERED: NICOTINE POLACRILEX 4 MG GUM BUC PRN (15:38)
[2019-01-15] MEDS: FLUTICASONE PROP 0.05% 16 GM NASAL SPRAY NS SCH ×2 (15:56→22:07)
[2019-01-15] MEDS: TIOTROPIUM BROMIDE 2.5 MCG (SPIRIVA) RESPIMAT INHALER IH SCH (15:57)
[2019-01-15] MEDS: BICTEGRAV/EMTRICIT/TENOFOV (BIKTARVY) 50-200-25 MG TABLET PO SCH (15:57)
--- NOTE | 2019-01-15 16:06 | CONSULT ---
[facility] Psychiatric Consult - Data Date of interview: 01/15/19 Admission source: [facility] Identifying data: Patient is a 53 year old single female, mother of two, unemployed, domiciled, and is supported by public assistance and HASA benefits. This is one of multiple admissions for patient. Patient admitted to for alcohol dependence. Substance Abuse History: Smoking Cessation. Smoking history: Current every day smoker. Have you smoked in the past 12 months: Yes. Aproximately how many cigarettes per day: 20. Cigars Per Day: 0. Hx Chewing Tobacco Use: No. ' Breaking Loose' booklet given: 01/15/19. - Substance & Tx. History. Hx Alcohol Use: Yes (beer/vodka). Hx Substance Use: Yes (cocaine/crack). Substance Use Type: Alcohol, Cocaine. Hx Substance Use Treatment: Yes (last tx at [facility]). - Substances abused. Alcohol. Substance route: Oral. Frequency : Daily. Amount used: 4 pts. liquor, 6 beers ( 24 oz cans). Age of first use: 16. Date of last use: 01/15/19. Cocaine. Substance route: Smoking. Frequency: Daily. Amount used: $200. Age of first use: 18. Date of last use: 08/13/18. Crack. Substance route: Smoking. Frequency: Daily. Amount used : $200-$300. Age of first use: 18. Date of last use: 01/13/19 Medical History: Significant for asthma/COPD, hypertension, dyslipidemia, acid reflux, HIV, history of treatment for gonorrhea and syphilis and surgery for ectopic at age 30 Psychiatric History: Patient denies history of psychiatric hospitalizations and suicide attempt. Ms. Nathan reports past outpatient treatment at [facility] [place] and reports being prescribed Zoloft 100mg + Seroquel 300mg. Diagnosis of MDD. Reports currently receiving her prescriptions from her PCP Dr. Thompson because her psychiatrist is currently out on medical leave. Patient reports most recently taking her medications on Friday. Patient denies history of suicidal attempt. At present, patient reports difficulty sleeping. Physical/Sexual Abuse/Trauma History: denies. Mental Status Exam - Mental Status Exam Alert and Oriented to: Time, Place, Person Cognitive Function: Good Patient Appearance: Well Groomed Mood: Euthymic Affect: Mood Congruent Patient Behavior: Cooperative Speech Pattern: Appropriate Voice Loudness: Normal Thought Process: Goal Oriented Thought Disorder: Not Present Hallucinations: Denies Suicidal Ideation: Denies Homicidal Ideation: Denies Insight/Judgement: Poor Sleep: Poorly Appetite: Fair Muscle strength/Tone: Normal Gait/Station: Normal Psychiatric Findings - Problem List ([place] 1, 2,3) (1) Alcohol dependence with uncomplicated withdrawal Status: Chronic (2) Cocaine dependence Status: Chronic Qualifiers: Substance use status: uncomplicated Qualified Code(s): F14.20 - Cocaine dependence, uncomplicated (3) Nicotine dependence Status: Chronic Qualifiers: Nicotine product type: cigarettes Substance use status: uncomplicated Qualified Code(s): F17.210 - Nicotine dependence, cigarettes, uncomplicated (4) Substance-induced sleep disorder Status: Acute (5) Mood disorder Status: Chronic - Initial Treatment Plan Initial Treatment Plan: Psychoeducation provided. Detoxification in progress. Will order Zoloft 100mg + Seroquel 200mg HS (reduced dosage). Benefits and side effects discussed. Verbal consent given.
[2019-01-15] MEDS: ALBUTEROL SO4 8 GM HFA INHALER IH PRN ×2 (17:24→22:08)
[2019-01-15] MEDS: RANITIDINE HCL 150 MG TABLET (FP) PO SCH ×2 (19:12→22:08)
[2019-01-15] MEDS ORDERED: amLODIPine BESYLATE 10 MG TABLET (FP) PO ONE (19:28)
[2019-01-15] MEDS ORDERED: QUEtiapine FUMARATE 200 MG TABLET PO SCH (22:00)
[2019-01-15] MEDS ORDERED: RANITIDINE HCL 150 MG TABLET (FP) PO SCH ×2 (22:00)
[2019-01-15] MEDS: THIAMINE HCL 100 MG TABLET (FP) PO SCH (22:06)
[2019-01-15] MEDS: ATORVASTATIN CA 20 MG TABLET (FP) PO SCH (22:07)
[2019-01-15] MEDS: BUDESONIDE/FORMETEROL FUMARATE 160/4.5 mcg INHALER IH SCH (22:08)
[2019-01-16] MEDS: chlordiazePOXIDE HCL 25 MG CAPSULE PO SCH ×3 (06:38→22:22)
--- NOTE | 2019-01-16 09:48 | EKG ---
Test Reason : Blood Pressure : / mmHG Vent. Rate : 074 BPM Atrial Rate : 074 BPM P-R Int : 216 ms QRS Dur : 096 ms QT Int : 426 ms P-R-T Axes : 065 012 070 degrees QTc Int : 472 ms SINUS RHYTHM WITH 1ST DEGREE A-V BLOCK POSSIBLE LEFT ATRIAL ENLARGEMENT INFERIOR INFARCT , AGE UNDETERMINED CANNOT RULE OUT ANTERIOR INFARCT , AGE UNDETERMINED ABNORMAL ECG WHEN COMPARED WITH ECG OF 29-NOV-2017 13:58, NO SIGNIFICANT CHANGE WAS FOUND Confirmed by BUSHRA AL MD ([id number]) on 01/16/2019 9:47:54 AM Referred By: Confirmed By:BUSHRA AL MD
[2019-01-16] MEDS: HYDROCHLOROTHIAZIDE 25 MG TABLET (FP) PO SCH (10:23)
[2019-01-16] MEDS: PRENATAL VITAMINS W/ FOLIC ACID TABLET (FP) PO SCH (10:23)
[2019-01-16] MEDS: BUDESONIDE/FORMETEROL FUMARATE 160/4.5 mcg INHALER IH SCH ×2 (10:24→22:22)
[2019-01-16] MEDS: RANITIDINE HCL 150 MG TABLET (FP) PO SCH ×2 (10:24→22:22)
[2019-01-16] MEDS: amLODIPine BESYLATE 10 MG TABLET (FP) PO SCH (10:24)
[2019-01-16] MEDS: ASPIRIN COATED 81 MG TABLET.EC PO SCH (10:24)
[2019-01-16] MEDS: TIOTROPIUM BROMIDE 2.5 MCG (SPIRIVA) RESPIMAT INHALER IH SCH (10:25)
[2019-01-16] MEDS: SERTRALINE HCL 50 MG TABLET (FP) PO SCH (10:25)
[2019-01-16] MEDS: BICTEGRAV/EMTRICIT/TENOFOV (BIKTARVY) 50-200-25 MG TABLET PO SCH (10:26)
[2019-01-16] MEDS: FLUTICASONE PROP 0.05% 16 GM NASAL SPRAY NS SCH ×2 (10:27→22:23)
--- NOTE | 2019-01-16 10:47 | PN ---
S Progress Note Note: Psychiatric nurse practitioner note: Patient able to tolerate seroquel 200mg. No sedation noted. Patient alert + Oriented x3. Observed ambulating on the unit. Will d/c seroquel 200mg and order seroquel 300mg HS. Verbal consent given.
--- NOTE | 2019-01-16 11:12 | PN ---
S CIWA - CIWA Score Nausea/Vomitin-No Nausea/No Vomiting Muscle Tremors: 2 Anxiety: 3 Agitation: 0-Normal Activity Paroxysmal Sweats: 3 Orientation: 0-Oriented Tacttile Disturbances: 1-Very Mild Itch/Numbness Auditory Disturbances: 0-None Visual Disturbances: 0-None Headache: 2-Mild CIWA-Ar Total Score: 11 S Progress Note (SOAP) Subjective: c/o headache, sweats, mild shakes, and anxiety. Objective: 01/16/19 11:09 Vital Signs 01/16/19 01/16/19 01/16/19 03:30 06:00 09:33 Temperature 97.2 F L 98.6 F Pulse Rate 77 90 Respiratory 18 18 18 Rate Blood Pressure 149/85 134/95 Lab Results WBC 2.9 K/mm3 (4.0-10.0) L 01/15/19 11:55 RBC 4.63 M/mm3 (3.60-5.2) 01/15/19 11:55 Hgb 13.3 GM/dL (10.7-15.3) 01/15/19 11:55 Hct 39.9 % (32.4-45.2) 01/15/19 11:55 MCV 86.2 fl (80-96) 01/15/19 11:55 MCHC 33.4 g/dl (32.0-36.0) 01/15/19 11:55 RDW 14.2 % (11.6-15.6) 01/15/19 11:55 Plt Count 236 K/MM3 (134-434) 01/15/19 11:55 Sodium 141 mmol/L (136-145) 01/15/19 11:55 Potassium 3.7 mmol/L (3.5-5.1) 01/15/19 11:55 Chloride 107 mmol/L (98-107) 01/15/19 11:55 Carbon Dioxide 29 mmol/L (21-32) 01/15/19 11:55 Anion Gap 5 MMOL/L (8-16) L 01/15/19 11:55 BUN 12.0 mg/dL (7-18) 01/15/19 11:55 Creatinine 0.8 mg/dL (0.55-1.3) 01/15/19 11:55 Random Glucose 74 mg/dL (74-106) 01/15/19 11:55 Calcium 9.4 mg/dL (8.5-10.1) 01/15/19 11:55 Labs noted. Assessment: 01/16/19 11:09 AOX3, in no acute respiratory distress. Full ROM, ambulating in the unt. Withdrawal symptoms. Plan: continue detox. Increase fluids.
[2019-01-16] MEDS: COLLOIDAL OATMEAL 1 BAR EACH TP PRN (16:42)
[2019-01-16] MEDS: ALBUTEROL SO4 8 GM HFA INHALER IH PRN (19:50)
[2019-01-16] MEDS: THIAMINE HCL 100 MG TABLET (FP) PO SCH (22:22)
[2019-01-16] MEDS: ATORVASTATIN CA 20 MG TABLET (FP) PO SCH (22:22)
[2019-01-16] MEDS: QUEtiapine FUMARATE 300 MG TABLET PO SCH (22:23)
[2019-01-16] MEDS: IBUPROFEN 400 MG TABLET (FP) PO PRN (22:44)
[2019-01-17] MEDS: chlordiazePOXIDE 5 MG CAPSULE PO SCH ×3 (05:56→22:30)
[2019-01-17] MEDS: FLUTICASONE PROP 0.05% 16 GM NASAL SPRAY NS SCH ×2 (10:42→23:28)
[2019-01-17] MEDS: BICTEGRAV/EMTRICIT/TENOFOV (BIKTARVY) 50-200-25 MG TABLET PO SCH (10:42)
[2019-01-17] MEDS: SERTRALINE HCL 50 MG TABLET (FP) PO SCH (10:43)
[2019-01-17] MEDS: BUDESONIDE/FORMETEROL FUMARATE 160/4.5 mcg INHALER IH SCH ×2 (10:43→23:28)
[2019-01-17] MEDS: RANITIDINE HCL 150 MG TABLET (FP) PO SCH ×2 (10:43→22:30)
[2019-01-17] MEDS: TIOTROPIUM BROMIDE 2.5 MCG (SPIRIVA) RESPIMAT INHALER IH SCH (10:44)
[2019-01-17] MEDS: HYDROCHLOROTHIAZIDE 25 MG TABLET (FP) PO SCH (10:44)
[2019-01-17] MEDS: ASPIRIN COATED 81 MG TABLET.EC PO SCH (10:44)
[2019-01-17] MEDS: amLODIPine BESYLATE 10 MG TABLET (FP) PO SCH (10:44)
[2019-01-17] MEDS: PRENATAL VITAMINS W/ FOLIC ACID TABLET (FP) PO SCH (10:44)
--- NOTE | 2019-01-17 15:56 | PN ---
S CIWA - CIWA Score Nausea/Vomitin-No Nausea/No Vomiting Muscle Tremors: 3 Anxiety: 2 Agitation: 1-Slight > Activity Paroxysmal Sweats: 3 Orientation: 0-Oriented Tacttile Disturbances: 0-None Auditory Disturbances: 0-None Visual Disturbances: 0-None Headache: 0-None Present CIWA-Ar Total Score: 9 BHS Progress Note (SOAP) Subjective: shakes sweats Objective: 01/17/19 15:57 in bed, in no acute distress anxious tremors Vital Signs Temperature 98.2 F 01/17/19 12:52 Pulse Rate 97 H 01/17/19 12:52 Respiratory Rate 18 01/17/19 12:52 Blood Pressure 159/98 01/17/19 12:52 O2 Sat by Pulse Oximetry (%) Assessment: 01/17/19 15:57 withdrawal sx Plan: continue detox increase hydration
[2019-01-17] MEDS: THIAMINE HCL 100 MG TABLET (FP) PO SCH (22:30)
[2019-01-17] MEDS: QUEtiapine FUMARATE 300 MG TABLET PO SCH (22:30)
[2019-01-17] MEDS: ATORVASTATIN CA 20 MG TABLET (FP) PO SCH (22:30)
[2019-01-18] MEDS ORDERED: chlordiazePOXIDE HCL 10 MG CAPSULE PO PRN
[2019-01-18] MEDS: chlordiazePOXIDE HCL 10 MG CAPSULE PO SCH ×3 (05:50→22:06)
[2019-01-18] MEDS: FLUTICASONE PROP 0.05% 16 GM NASAL SPRAY NS SCH ×2 (10:06→22:06)
[2019-01-18] MEDS: BICTEGRAV/EMTRICIT/TENOFOV (BIKTARVY) 50-200-25 MG TABLET PO SCH (10:06)
[2019-01-18] MEDS: BUDESONIDE/FORMETEROL FUMARATE 160/4.5 mcg INHALER IH SCH ×2 (10:07→22:07)
[2019-01-18] MEDS: HYDROCHLOROTHIAZIDE 25 MG TABLET (FP) PO SCH (10:07)
[2019-01-18] MEDS: amLODIPine BESYLATE 10 MG TABLET (FP) PO SCH (10:07)
[2019-01-18] MEDS: TIOTROPIUM BROMIDE 2.5 MCG (SPIRIVA) RESPIMAT INHALER IH SCH (10:07)
[2019-01-18] MEDS: PRENATAL VITAMINS W/ FOLIC ACID TABLET (FP) PO SCH (10:07)
[2019-01-18] MEDS: ASPIRIN COATED 81 MG TABLET.EC PO SCH (10:07)
[2019-01-18] MEDS: RANITIDINE HCL 150 MG TABLET (FP) PO SCH ×2 (10:08→22:05)
[2019-01-18] MEDS: SERTRALINE HCL 50 MG TABLET (FP) PO SCH (10:08)
--- NOTE | 2019-01-18 10:24 | PN ---
[facility] Progress Note Note: Patient is scheduled for discharge tomorrow. Scripts for 30 days supply of medications(Seroquel 300 mg/hs, Zoloft 100 mg/day)will be electronically transmitted to [facility] at [address] [place] [address]
--- NOTE | 2019-01-18 13:11 | PN ---
S CIWA - CIWA Score Nausea/Vomitin (Heartburn.) Muscle Tremors: None Anxiety: 2 Agitation: 1-Slight > Activity Paroxysmal Sweats: No Perspiration Orientation: 0-Oriented Tacttile Disturbances: 1-Very Mild Itch/Numbness Auditory Disturbances: 0-None Visual Disturbances: 0-None Headache: 0-None Present CIWA-Ar Total Score: 6 BHS Progress Note (SOAP) Subjective: Body Aches, Heartburn. Objective: PATIENT A & O X 3, OBSERVED AMBULATING ON DETOX UNIT UNASSISTED. IN NO ACUTE DISTRESS. 01/18/19 13:09 Vital Signs Temperature 98.4 F 01/18/19 13:08 Pulse Rate 85 01/18/19 13:08 Respiratory Rate 18 01/18/19 13:08 Blood Pressure 144/92 01/18/19 13:08 O2 Sat by Pulse Oximetry (%) Laboratory Tests 01/15/19 01/15/19 01/15/19 11:55 11:55 11:55 WBC 2.9 L RBC 4.63 Hgb 13.3 Hct 39.9 MCV 86.2 MCH 28.7 MCHC 33.4 RDW 14.2 Plt Count 236 MPV 8.4 Sodium 141 Potassium 3.7 Chloride 107 Carbon Dioxide 29 Anion Gap 5 L BUN 12.0 Creatinine 0.8 Est GFR (CKD-EPI)AfAm 97.55 Est GFR (CKD-EPI)NonAf 84.17 Random Glucose 74 Calcium 9.4 Total Bilirubin 0.3 AST 22 ALT 27 Alkaline Phosphatase 110 Total Protein 8.0 Albumin 3.9 RPR Titer Nonreactive LABS NOTED. PATIENT HAS HAD LOW PLATELET LEVELS ON PREVIOUS ADMISSIONS. 01/18/19 13:09 Assessment: 01/18/19 13:10 WITHDRAWAL SYMPTOMS. LEUKOPENIA. Plan: CONTINUE DETOX. LIDODERM PATCH FOR LOWER BACK PAIN. PATIENT SCHEDULED FOR D/C FROM DETOX UNIT TOMORROW.
[2019-01-18] MEDS: LIDOCAINE 5% TOPICAL PATCH TP SCH (14:25)
[2019-01-18] MEDS: COLLOIDAL OATMEAL 1 BAR EACH TP PRN (19:33)
[2019-01-18] MEDS ORDERED: LIDOCAINE PATCH REMOVAL MC SCH (22:00)
[2019-01-18] MEDS: THIAMINE HCL 100 MG TABLET (FP) PO SCH (22:05)
[2019-01-18] MEDS: ATORVASTATIN CA 20 MG TABLET (FP) PO SCH (22:05)
[2019-01-18] MEDS: QUEtiapine FUMARATE 300 MG TABLET PO SCH (22:06)
[2019-01-18] MEDS: ALBUTEROL SO4 8 GM HFA INHALER IH PRN (22:07)
[2019-01-19] MEDS ORDERED: chlordiazePOXIDE HCL 10 MG CAPSULE PO ONE (05:00)
--- NOTE | 2019-01-19 09:08 | DS ---
[facility] Detox Discharge Summary Admission Date: 01/15/19 Discharge Date: 01/19/19 - History Present History: Alcohol Dependence, Cocaine Dependence - Physical Exam Results Vital Signs: Vital Signs Temperature 97.7 F 01/19/19 06:21 Pulse Rate 86 01/19/19 06:21 Respiratory Rate 18 01/19/19 06:21 Blood Pressure 144/106 H 01/19/19 06:21 O2 Sat by Pulse Oximetry (%) Pertinent Admission Physical Exam Findings: pt arrived in withdrawals Laboratory Tests 01/15/19 01/15/19 01/15/19 11:55 11:55 11:55 WBC 2.9 L RBC 4.63 Hgb 13.3 Hct 39.9 MCV 86.2 MCH 28.7 MCHC 33.4 RDW 14.2 Plt Count 236 MPV 8.4 Sodium 141 Potassium 3.7 Chloride 107 Carbon Dioxide 29 Anion Gap 5 L BUN 12.0 Creatinine 0.8 Est GFR (CKD-EPI)AfAm 97.55 Est GFR (CKD-EPI)NonAf 84.17 Random Glucose 74 Calcium 9.4 Total Bilirubin 0.3 AST 22 ALT 27 Alkaline Phosphatase 110 Total Protein 8.0 Albumin 3.9 RPR Titer Nonreactive today pt is aaox3 ambulating no acute distress no s/s of withdrawals - Treatment Hospital Course: Detox Protocol Followed, Detoxed Safely, Responded well, Discharged Condition Good, Rehab Referral Accepted Patient has Accepted a Rehab Referral to: pt declined rehab; referral provided - Medication Discharge Medications: Ambulatory Orders Metoprolol Succinate [Toprol XL -] 50 mg PO DAILY #14 tab.sr.24h 04/26/18 Tiotropium [place] [Spiriva] 1 inh IH DAILY #1 cap.w.dev 04/26/18 Ranitidine HCl [Zantac] 150 mg PO BID 06/20/18 Varenicline Tartrate [Chantix -] 0.5 mg PO DAILY tab 10/21/18 Amlodipine Besylate [Norvasc -] 10 mg PO DAILY #14 tablet 10/27/18 Aspirin Coated [Ecotrin -] 81 mg PO DAILY #30 tablet.ec 10/27/18 Atorvastatin Ca [Lipitor] 20 mg PO HS #30 tablet 10/27/18 Bictegrav/Emtricit/Tenofov Ala [Biktarvy 50-200-25 mg Tablet] 1 each PO DAILY # 30 tablet 10/27/18 Fluticasone Prop 0.05% Nasal [Flonase -] 1 - 2 spray NS BID #1 spray 10/27/18 Hydrochlorothiazide [Hctz -] 25 mg PO DAILY #30 tablet 10/27/18 Mometasone/Formoterol [Dulera 200 Mcg/5 Mcg Inhaler] 2 inh IH BID #1 hfa.aer.ad 10/27/18 Albuterol Sulfate Inhaler - [Ventolin HFA Inhaler -] 2 inh PO Q4H PRN #1 inh 10/30 Quetiapine Fumarate [Seroquel -] 300 mg PO HS #30 tablet 01/18/19 Sertraline HCl [Zoloft] 100 mg PO DAILY #30 tablet 01/18/19 - Diagnosis (1) Alcohol dependence with uncomplicated withdrawal Current Visit: Yes Status: Chronic (2) Cocaine dependence Current Visit: Yes Status: Chronic Qualifiers: Substance use status: uncomplicated Qualified Code(s): F14.20 - Cocaine dependence, uncomplicated (3) Substance-induced sleep disorder Current Visit: Yes Status: Acute (4) Asthma Current Visit: Yes Status: Chronic Qualifiers: Asthma severity: mild Asthma persistence: intermittent Asthma complication type: uncomplicated Qualified Code(s): J45.20 - Mild intermittent asthma, uncomplicated (5) Essential hypertension Current Visit: Yes Status: Chronic (6) GERD (gastroesophageal reflux disease) Current Visit: Yes Status: Chronic Qualifiers: Esophagitis presence: without esophagitis Qualified Code(s): K21.9 - Gastro -esophageal reflux disease without esophagitis (7) HIV (human immunodeficiency virus infection) Current Visit: Yes Status: Chronic Qualifiers: HIV symptom status: asymptomatic Qualified Code(s): Z21 - Asymptomatic human immunodeficiency virus [HIV] infection status (8) Hypercholesterolemia Current Visit: Yes Status: Chronic (9) Mood disorder Current Visit: Yes Status: Chronic (10) Nicotine dependence Current Visit: Yes Status: Chronic Qualifiers: Nicotine product type: cigarettes Substance use status: uncomplicated Qualified Code(s): F17.210 - Nicotine dependence, cigarettes, uncomplicated (11) History of syphilis Current Visit: Yes Status: Resolved (12) Substance-induced anxiety disorder Current Visit: No Status: Acute (13) Substance-induced sleep disorder Current Visit: No Status: Acute (14) COPD (chronic obstructive pulmonary disease) Current Visit: No Status: Chronic Qualifiers: COPD type: emphysema Emphysema type: other Qualified Code(s): J43.8 - Other emphysema (15) HIV (human immunodeficiency virus infection) Current Visit: Yes Status: Chronic Qualifiers: HIV symptom status: unspecified Qualified Code(s): B20 - Human immunodeficiency virus [HIV] disease (16) Hypokalemia Current Visit: No Status: Chronic (17) Mood disorder Current Visit: No Status: Chronic (18) Murmur, cardiac Current Visit: No Status: Chronic (19) Neuropathy Current Visit: No Status: Chronic (20) Bipolar disorder Current Visit: No Status: Ruled-out (21) MDD (major depressive disorder) Current Visit: No Status: Ruled-out - AMA Did Patient Leave Against Medical Advice: No
[2019-01-19 09:23] VITALS: BP 137/86; PULSE 79; TEMP 97.5
[2019-01-19] MEDS: PRENATAL VITAMINS W/ FOLIC ACID TABLET (FP) PO SCH (09:26)
[2019-01-19] MEDS: ASPIRIN COATED 81 MG TABLET.EC PO SCH (09:26)
[2019-01-19] MEDS: amLODIPine BESYLATE 10 MG TABLET (FP) PO SCH (09:27)
[2019-01-19] MEDS: HYDROCHLOROTHIAZIDE 25 MG TABLET (FP) PO SCH (09:27)
[2019-01-19] MEDS: BICTEGRAV/EMTRICIT/TENOFOV (BIKTARVY) 50-200-25 MG TABLET PO SCH (09:27)
[2019-01-19] MEDS: SERTRALINE HCL 50 MG TABLET (FP) PO SCH (09:27)
[2019-01-19] MEDS: TIOTROPIUM BROMIDE 2.5 MCG (SPIRIVA) RESPIMAT INHALER IH SCH (09:28)
[2019-01-19] MEDS: LIDOCAINE 5% TOPICAL PATCH TP SCH (09:28)
[2019-01-19] MEDS: BUDESONIDE/FORMETEROL FUMARATE 160/4.5 mcg INHALER IH SCH (09:28)
== END 2019-01-19 09:50 | disposition home or self-care (01) | DRG 774 ==
LOC: YASAS 09:26 → Y6N 11:47
PROVIDERS: ADMIT Allergy & Immunology; ATTEND Allergy & Immunology
PROC: HZ2ZZZZ Detoxification Services for Substance Abuse Treatment (ICD-10-PCS; principal; 2019-01-15)
DX: F10.230 Alcohol dependence with withdrawal, uncomplicated (principal); F14.20 Cocaine dependence, uncomplicated; F17.210 Nicotine dependence, cigarettes, uncomplicated; F19.280 Other psychoactive substance dependence with psychoactive substance-induced anxiety disorder; F19.282 Other psychoactive substance dependence with psychoactive substance-induced sleep disorder; F39 Unspecified mood [affective] disorder; F31.9 Bipolar disorder, unspecified; I10 Essential (primary) hypertension; K21.9 Gastro-esophageal reflux disease without esophagitis; J45.20 Mild intermittent asthma, uncomplicated; J43.8 Other emphysema; Z21 Asymptomatic human immunodeficiency virus [HIV] infection status; E78.5 Hyperlipidemia, unspecified; E87.6 Hypokalemia; R01.1 Cardiac murmur, unspecified; G62.9 Polyneuropathy, unspecified; D72.819 Decreased white blood cell count, unspecified; Z87.42 Personal history of other diseases of the female genital tract; Z91.013 Allergy to seafood; Z91.018 Allergy to other foods; Z88.1 Allergy status to other antibiotic agents; Z88.2 Allergy status to sulfonamides; Z88.8 Allergy status to other drugs, medicaments and biological substances; Z91.5 Personal history of self-harm
CPT/HCPCS: 36415; 80053; 85027; 86593; 93005; 93010

== ENCOUNTER 2019-02-27 08:37 | Inpatient (IN) | payer OTHER ==
[2019-02-27 09:48] VITALS: BMI 28.6
--- NOTE | 2019-02-27 10:22 | HP ---
CIWA Score Nausea/Vomitin-Mild Nausea/No Vomiting Muscle Tremors: 4-Moderate,w/Arms Extend Anxiety: 3 Agitation: 1-Slight > Activity Paroxysmal Sweats: No Perspiration Orientation: 1-Uncertain about Date Tacttile Disturbances: 1-Very Mild Itch/Numbness Auditory Disturbances: 1-Very Mild Visual Disturbances: 1-Very Mild Sensitivity Headache: 4-Moderately Severe CIWA-Ar Total Score: 17 - Admission Criteria OASAS Guidelines: Admission for Medically Managed Detox: Requires at least one of the followin. CIWA greater than 12 2. Seizures within the past 24 hours 3. Delirium tremens within the past 24 hours 4. Hallucinations within the past 24 hours 5. Acute intervention needed for co occurring medical disorder 6. Acute intervention needed for co occurring psychiatric disorder 7. Severe withdrawal that cannot be handled at a lower level of care (continued vomiting, continued diarrhea, abnormal vital signs) requiring intravenous medication and/or fluids 8. 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: Migraine ("i used to be on Imitrex") Cardiovascular: Yes: HTN Pulmonary: Yes: Asthma, COPD Gastrointestinal: Yes: GERD (on Zantac daily) Renal/: Yes: UTI (in the past) ...LMP: 08/12/13 Infectious Disease: Yes: HIV, STD's (Hx syphilis/Gonorrhea at 15) Psych: Yes: Depression Musculoskeletal: Yes: Chronic low back pain ENT: Yes: Allergic Rhinitis (on flonase), Other - Smoking History Smoking history: Current every day smoker Have you smoked in the past 12 months: Yes Aproximately how many cigarettes per day: 20 - Alcohol/Substance Use Hx Alcohol Use: Yes (beer/vodka) Number of Drinks Daily: 3 (3 cobra/1-2 pt vodka) History of Substance Use: reports: Cocaine Date of Last Use: 01/15/19 (After d/c from [facility] today) - Social History ADL: Independent History of Recent Travel: No Admission ROS S - HPI Chief Complaint: This is God's calling, this is my wake up call to come get clean and to stop using. Allergies/Adverse Reactions: Allergies Allergy/AdvReac Type Severity Reaction Status Date / Time lisinopril Allergy Severe Swelling Verified 02/27/19 09:39 turkey Allergy Severe Rash Verified 02/27/19 09:39 Fish Containing Products Allergy Rash Verified 02/27/19 09:39 erythromycin base AdvReac Severe Rash Verified 02/27/19 09:39 sulfamethoxazole AdvReac Severe Rash Verified 02/27/19 09:39 [From Bactrim] trimethoprim [From Bactrim] AdvReac Severe Rash Verified 02/27/19 09:39 History of Present Illness: 53 yo woman here for detox from alcohol and also using crack. This is one of multiple admissions for detox and rehab - last here 01/15/19. Patient was coughing and went to [place] ED on 02/26/19 and treated for pneumonia - discharged with levaquin 750 daily for 10 days, given a dose in the hospital. She was feeling shaky when she left the ED and did not want to go back drinking and came here for detox. She is in drug court. No seizures but does have black outs. Exam Limitations: Clinical Condition - Ebola screening Have you traveled outside of the country in the last 21 days: No (N) Have you had contact with anyone from an Ebola affected area: No Do you have a fever: No - Review of Systems Constitutional: Loss of Appetite, Malaise, Changes in sleep EENT: reports: Blurred Vision Respiratory: reports: Cough Cardiac: reports: No Symptoms Reported GI: reports: Diarrhea, Nausea, Indigestion, Abdominal cramping : reports: Frequency Musculoskeletal: reports: Back Pain, Joint Pain (right hip pain (arthritis)) Integumentary: reports: Dryness Neuro: reports: Headache, Tremors, Weakness Endocrine: reports: No Symptoms Reported Hematology: reports: No Symptoms Reported Psychiatric: reports: Judgement Intact, Mood/Affect Appropiate, Anxious Other Systems: Reviewed and Negative Patient History - Patient Medical History Hx Anemia: No Hx Asthma: Yes (on med) Hx Chronic Obstructive Pulmonary Disease (COPD): Yes (on med) Hx Cancer: No Hx Cardiac Disorders: Yes (heart murmur ) Hx Congestive Heart Failure: No Hx Hypertension: Yes (on med) Hx Hypercholesterolemia: Yes (on med) Hx Pacemaker: No HX Cerebrovascular Accident: No Hx Seizures: No Hx Dementia: No Hx Diabetes: No Hx Gastrointestinal Disorders: Yes (GERD) Hx Liver Disease: No Hx Genitourinary Disorders: No Hx Sexually Transmitted Disorders: Yes (HIV,Syphilis & gonorrhea,) Hx Renal Disease (ESRD): No Hx Thyroid Disease: No Hx Human Immunodeficiency Virus (HIV): Yes (ON BICTARVY ,CD4-= 206 02/27/19) Hx Hepatitis C: No Hx Depression: Yes (never hospitalized, on meds) Hx Suicide Attempt: Yes (with pills at age 11) Hx Bipolar Disorder: Yes (on meds) Hx Schizophrenia: Yes ('sometimes I hear voices') - Patient Surgical History Past Surgical History: Yes Hx Neurologic Surgery: No Hx Cataract Extraction: No Hx Cardiac Surgery: No Hx Lung Surgery: No Hx Breast Surgery: No Hx Breast Biopsy: No Hx Abdominal Surgery: No Hx Appendectomy: No Hx Cholecystectomy: No Hx Genitourinary Surgery: No Hx Section: No Hx Orthopedic Surgery: No Hx Hysterectomy: No Other Surgical History: ectopic at age 35 Anesthesia Reaction: No - PPD History Previous Implant?: Yes Documented Results: Negative w/proof Implanted On Prior [facility] Admission?: Yes Date: 09/15/17 Results: 0mm PPD to be Administered?: Yes - Reproductive History Patient is a Female of Child Bearing Age (11 -55 yrs old): No Last Menstrual Period: 08/12/13 - Smoking Cessation Smoking history: Current every day smoker Have you smoked in the past 12 months: Yes Aproximately how many cigarettes per day: 5 Cigars Per Day: 0 Hx Chewing Tobacco Use: No Initiated information on smoking cessation: Yes 'Breaking Loose' booklet given: 02/27/19 (give on floor) - Substance & Tx. History Hx Alcohol Use: Yes Hx Substance Use: Yes Substance Use Type: Alcohol, Cocaine Hx Substance Use Treatment: Yes (detox, rehab) - Substances abused Alcohol Substance route: Oral Frequency: Daily Amount used: 4 pts. liquor, 6 beers ( 24 oz cans) Age of first use: 16 Date of last use: 02/27/19 Cocaine Substance route: Smoking Frequency: Daily Amount used: $200 Age of first use: 18 Date of last use: 08/13/18 Crack Substance route: Smoking Frequency: Daily Amount used: $200 Age of first use: 18 Date of last use: 02/23/19 Admission Physical Exam BHS - Vital Signs Vital Signs: Vital Signs - 24 hr 02/27/19 09:44 Temperature 97.7 F Pulse Rate 82 Respiratory 16 Rate Blood Pressure 161/97 - Physical General Appearance: Yes: Nourished, Appropriately Dressed, Moderate Distress, Tremorous, Anxious HEENTM: Yes: EOMI, Hearing grossly Normal, Normocephalic, Normal Voice, Pharynx Normal Respiratory: Yes: No Respiratory Distress, Rhonchi, Other (loose cough) Neck: Yes: No masses,lesions,Nodules Breast: Yes: Breast Exam Deferred Cardiology: Yes: Regular Rhythm, Regular Rate, Murmur Abdominal: Yes: Soft Genitourinary: Yes: Frequency Back: Yes: Normal Inspection Musculoskeletal: Yes: full range of Motion, Gait Steady, Back pain, Joint Stiffness (left hip stiffness) Extremities: Yes: Normal Inspection, Normal Range of Motion, Tremors Neurological: Yes: Alert, Motor Strength 5/5, Normal Mood/Affect, Normal Response Integumentary: Yes: Normal Color, Dry, Warm, Other (rash between toes) Lymphatic: Yes: Within Normal Limits - Diagnostic (1) Alcohol dependence with uncomplicated withdrawal Current Visit: Yes Status: Chronic (2) Cocaine dependence Current Visit: Yes Status: Chronic Qualifiers: Substance use status: uncomplicated Qualified Code(s): F14.20 - Cocaine dependence, uncomplicated (3) Tinea pedis Current Visit: Yes Status: Acute Qualifiers: Laterality: bilateral Qualified Code(s): B35.3 - Tinea pedis (4) Asthma Current Visit: Yes Status: Chronic Qualifiers: Asthma severity: mild Asthma persistence: intermittent Asthma complication type: uncomplicated Qualified Code(s): J45.20 - Mild intermittent asthma, uncomplicated (5) COPD (chronic obstructive pulmonary disease) Current Visit: Yes Status: Chronic Qualifiers: COPD type: emphysema Emphysema type: other Qualified Code(s): J43.8 - Other emphysema (6) Essential hypertension Current Visit: Yes Status: Chronic (7) GERD (gastroesophageal reflux disease) Current Visit: Yes Status: Chronic Qualifiers: Esophagitis presence: without esophagitis Qualified Code(s): K21.9 - Gastro -esophageal reflux disease without esophagitis (8) HIV (human immunodeficiency virus infection) Current Visit: Yes Status: Chronic Qualifiers: HIV symptom status: asymptomatic Qualified Code(s): Z21 - Asymptomatic human immunodeficiency virus [HIV] infection status (9) Hypercholesterolemia Current Visit: Yes Status: Chronic (10) Murmur, cardiac Current Visit: Yes Status: Chronic Comment: states had echo and told no need for treatment - asymptomatic (11) Nicotine dependence Current Visit: Yes Status: Chronic Qualifiers: Nicotine product type: cigarettes Substance use status: uncomplicated Qualified Code(s): F17.210 - Nicotine dependence, cigarettes, uncomplicated (12) History of syphilis Current Visit: Yes Status: Resolved Comment: states treated (13) Pneumonia Current Visit: Yes Status: Acute Qualifiers: Pneumonia type: due to unspecified organism Laterality: unspecified laterality Lung location: unspecified part of lung Qualified Code(s): J18.9 - Pneumonia, unspecified organism Comment: seen at [facility] and started on levaquin 750 daily (14) Back pain Current Visit: Yes Status: Chronic Qualifiers: Chronicity: chronic Back pain laterality: bilateral Sciatica presence: without sciatica (15) Osteoarthritis of left hip Current Visit: Yes Status: Chronic Qualifiers: Osteoarthritis type: primary Qualified Code(s): M16.12 - Unilateral primary osteoarthritis, left hip Cleared for Admission S - Detox or Rehab [facility] Level of Care: Medically Managed Detox Regimen/Protocol: Librium Breathalyzer - Breathalyzer Breathalyzer: 0.025 Urine Drug Screen - Test Device Lot number: [id number] Expiration date: 11/11/20 - Control Is test valid?: Yes - Results Drug screen NEGATIVE: No Urine drug screen results: [facility]-Cocaine Inpatient Rehab Admission - Rehab Decision to Admit Inpatient rehab admission?: No
[2019-02-27] MEDS ORDERED: METHOCARBAMOL 500 MG TABLET PO PRN (10:37)
[2019-02-27] MEDS ORDERED: hydrOXYzine PAMOATE 25 MG CAPSULE (FP) PO PRN (10:37)
[2019-02-27] MEDS ORDERED: MAG HYDROX/AL HYDROX/SIMETH 30 ML UNIT-DOSE CUP PO PRN (10:37)
[2019-02-27] MEDS ORDERED: MENTHOL/PHENOL 1 EACH UD MM PRN (10:37)
[2019-02-27] MEDS ORDERED: MAGNESIUM HYDROX 2400MG/30ML ORAL SUSPENSION 30 ML CUP PO PRN (10:37)
[2019-02-27] MEDS ORDERED: BISMUTH SUBSALICYLATE 524 MG/30 ML UD PO PRN (10:37)
[2019-02-27] MEDS ORDERED: ACETAMINOPHEN 325 MG TABLET (FP) PO PRN ×2 (10:37)
[2019-02-27] MEDS ORDERED: NICOTINE POLACRILEX 4 MG GUM BUC PRN (10:37)
[2019-02-27] MEDS ORDERED: MAGNESIUM CITRATE 300 ML BOTTLE PO PRN (10:37)
[2019-02-27] MEDS ORDERED: chlordiazePOXIDE HCL 25 MG CAPSULE PO PRN (10:37)
[2019-02-27] MEDS ORDERED: ALBUTEROL SO4 8 GM HFA INHALER IH PRN (10:39)
[2019-02-27] MEDS ORDERED: HYDROCHLOROTHIAZIDE 25 MG TABLET (FP) PO SCH (10:45)
[2019-02-27] MEDS ORDERED: chlordiazePOXIDE HCL 25 MG CAPSULE PO ONE (12:00)
[2019-02-27] MEDS ORDERED: SERTRALINE HCL 50 MG TABLET (FP) PO ONE (12:00)
[2019-02-27] MEDS: amLODIPine BESYLATE 10 MG TABLET (FP) PO SCH (12:08)
[2019-02-27] MEDS: TOLNAFTATE 1% CREAM 15 GM TUBE TP SCH ×2 (12:08→22:12)
[2019-02-27] MEDS: ASPIRIN COATED 81 MG TABLET.EC PO SCH (12:08)
[2019-02-27] MEDS: FAMOTIDINE 20 MG TABLET PO SCH (12:14)
[2019-02-27] MEDS: BICTEGRAV/EMTRICIT/TENOFOV (BIKTARVY) 50-200-25 MG TABLET PO SCH (14:29)
[2019-02-27] MEDS: chlordiazePOXIDE HCL 25 MG CAPSULE PO SCH ×2 (17:40→22:10)
[2019-02-27] MEDS ORDERED: QUEtiapine FUMARATE 100 MG TABLET (FP) ONE (21:01)
[2019-02-27] MEDS ORDERED: QUEtiapine FUMARATE 300 MG TABLET PO ONE (22:00)
[2019-02-27] MEDS: THIAMINE HCL 100 MG TABLET (FP) PO SCH (22:10)
[2019-02-27] MEDS: ATORVASTATIN CA 20 MG TABLET (FP) PO SCH (22:10)
[2019-02-28] MEDS: chlordiazePOXIDE HCL 25 MG CAPSULE PO SCH ×4 (05:33→22:29)
[2019-02-28] MEDS: BICTEGRAV/EMTRICIT/TENOFOV (BIKTARVY) 50-200-25 MG TABLET PO SCH (07:09)
--- NOTE | 2019-02-28 09:27 | PN ---
S CIWA - CIWA Score Nausea/Vomitin-Mild Nausea/No Vomiting Muscle Tremors: 4-Moderate,w/Arms Extend Anxiety: 4-Mod. Anxious/Guarded Agitation: 3 Paroxysmal Sweats: 2 Orientation: 0-Oriented Tacttile Disturbances: 1-Very Mild Itch/Numbness Auditory Disturbances: 0-None Visual Disturbances: 0-None Headache: 1-Very Mild CIWA-Ar Total Score: 16 BHS Progress Note (SOAP) Subjective: 53 years old female admitted on 02/27/19 for alcohol withdrawal sx management treated with librium detox regimen patient tolerated well long history of hypertension and hiv treated with amlodipine and HCTZ and metoprolol tolerated levaquen well ambulating on hallway social with peers in day room Objective: 02/28/19 09:29 Vital Signs Temperature 98.1 F 02/28/19 06:52 Pulse Rate 73 02/28/19 06:52 Respiratory Rate 18 02/28/19 06:52 Blood Pressure 141/88 02/28/19 06:52 O2 Sat by Pulse Oximetry (%) 02/28/19 09:30 lab pending Assessment: 02/28/19 09:30 alcohol withdrawal sx Plan: continue librium detox regimen
[2019-02-28] MEDS: amLODIPine BESYLATE 10 MG TABLET (FP) PO SCH (10:46)
[2019-02-28] MEDS: ASPIRIN COATED 81 MG TABLET.EC PO SCH (10:46)
[2019-02-28] MEDS: TOLNAFTATE 1% CREAM 15 GM TUBE TP SCH ×2 (10:47→22:29)
[2019-02-28] MEDS: FAMOTIDINE 20 MG TABLET PO SCH (10:47)
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
[2019-02-28] MEDS: HYDROCHLOROTHIAZIDE 25 MG TABLET (FP) PO SCH (10:48)
[2019-02-28] MEDS: PRENATAL VITAMINS W/ FOLIC ACID TABLET (FP) PO SCH (10:48)
[2019-02-28 11:01] LABS: HEMATOCRIT 37.5 % (32.4-45.2); HEMOGLOBIN 12.5 GM/dL (10.7-15.3); MCH 28.3 pg (25.7-33.7); MCHC 33.2 g/dl (32.0-36.0); MEAN CELL VOLUME 85.3 fl (80-96); MEAN PLT VOLUME 8.4 fl (7.5-11.1); PLATELET COUNT 233 K/MM3 (134-434); RDW 14.1 % (11.6-15.6); WHITE BLOOD COUNT 2.8 K/mm3 (4.0-10.0)
[2019-02-28 11:04] LABS: ALBUMIN 3.4 g/dl (3.4-5.0); BILIRUBIN,TOTAL 0.3 mg/dL (0.2-1); BLOOD UREA NITROGEN 14.4 mg/dL (7-18); CALCIUM 8.8 mg/dL (8.5-10.1); CREATININE 0.9 mg/dL (0.55-1.3); POTASSIUM 3.4 mmol/L (3.5-5.1); TOT PROT 7.2 g/dl (6.4-8.2)
[2019-02-28] MEDS: SERTRALINE HCL 50 MG TABLET (FP) PO SCH (11:43)
[2019-02-28] MEDS ORDERED: QUEtiapine FUMARATE 100 MG TABLET (FP) ONE (20:58)
[2019-02-28] MEDS: QUEtiapine FUMARATE 300 MG TABLET PO SCH (21:22)
[2019-02-28] MEDS: ATORVASTATIN CA 20 MG TABLET (FP) PO SCH (22:29)
[2019-02-28] MEDS: THIAMINE HCL 100 MG TABLET (FP) PO SCH (22:29)
[2019-03-01] MEDS: chlordiazePOXIDE HCL 25 MG CAPSULE PO SCH ×4 (05:36→22:26)
[2019-03-01] MEDS: SERTRALINE HCL 50 MG TABLET (FP) PO SCH (10:37)
[2019-03-01] MEDS: amLODIPine BESYLATE 10 MG TABLET (FP) PO SCH (10:37)
[2019-03-01] MEDS: ASPIRIN COATED 81 MG TABLET.EC PO SCH (10:37)
[2019-03-01] MEDS: HYDROCHLOROTHIAZIDE 25 MG TABLET (FP) PO SCH (10:37)
[2019-03-01] MEDS: FAMOTIDINE 20 MG TABLET PO SCH (10:37)
[2019-03-01] MEDS: BICTEGRAV/EMTRICIT/TENOFOV (BIKTARVY) 50-200-25 MG TABLET PO SCH (10:38)
[2019-03-01] MEDS: PRENATAL VITAMINS W/ FOLIC ACID TABLET (FP) PO SCH (10:38)
[2019-03-01] MEDS: TOLNAFTATE 1% CREAM 15 GM TUBE TP SCH ×2 (10:38→21:22)
--- NOTE | 2019-03-01 12:25 | PN ---
[facility] CIWA - CIWA Score Nausea/Vomitin-Mild Nausea/No Vomiting Muscle Tremors: 3 Anxiety: 4-Mod. Anxious/Guarded Agitation: 2 Paroxysmal Sweats: 2 Orientation: 1-Uncertain about Date Tacttile Disturbances: 1-Very Mild Itch/Numbness Auditory Disturbances: 0-None Visual Disturbances: 0-None Headache: 1-Very Mild CIWA-Ar Total Score: 15 S Progress Note (SOAP) Subjective: 53 years old female admitted on 02/27/19 for alcohol withdrawal sx management treated with librium detox regimen ate breakfast tolerate food and fluid well resting on bed compliance with medications limited conversation with staff prefers resting on bed Objective: 03/01/19 12:23 Vital Signs Temperature 96.1 F L 03/01/19 09:19 Pulse Rate 95 H 03/01/19 09:19 Respiratory Rate 18 03/01/19 09:19 Blood Pressure 141/87 03/01/19 09:19 O2 Sat by Pulse Oximetry (%) Laboratory Last Values WBC 2.8 K/mm3 (4.0-10.0) L 02/28/19 07:40 RBC 4.40 M/mm3 (3.60-5.2) 02/28/19 07:40 Hgb 12.5 GM/dL (10.7-15.3) 02/28/19 07:40 Hct 37.5 % (32.4-45.2) 02/28/19 07:40 MCV 85.3 fl (80-96) 02/28/19 07:40 MCH 28.3 pg (25.7-33.7) 02/28/19 07:40 MCHC 33.2 g/dl (32.0-36.0) 02/28/19 07:40 RDW 14.1 % (11.6-15.6) 02/28/19 07:40 Plt Count 233 K/MM3 (134-434) 02/28/19 07:40 MPV 8.4 fl (7.5-11.1) 02/28/19 07:40 Sodium 142 mmol/L (136-145) 02/28/19 07:40 Potassium 3.4 mmol/L (3.5-5.1) L 02/28/19 07:40 Chloride 108 mmol/L (98-107) H 02/28/19 07:40 Carbon Dioxide 29 mmol/L (21-32) 02/28/19 07:40 Anion Gap 5 MMOL/L (8-16) L 02/28/19 07:40 BUN 14.4 mg/dL (7-18) 02/28/19 07:40 Creatinine 0.9 mg/dL (0.55-1.3) 02/28/19 07:40 Est GFR (CKD-EPI)AfAm 84.61 02/28/19 07:40 Est GFR (CKD-EPI)NonAf 73.00 02/28/19 07:40 Random Glucose 66 mg/dL (74-106) L 02/28/19 07:40 Calcium 8.8 mg/dL (8.5-10.1) 02/28/19 07:40 Total Bilirubin 0.3 mg/dL (0.2-1) 02/28/19 07:40 AST 16 U/L (15-37) 02/28/19 07:40 ALT 19 U/L (13-61) 02/28/19 07:40 Alkaline Phosphatase 111 U/L (45-117) 02/28/19 07:40 Total Protein 7.2 g/dl (6.4-8.2) 02/28/19 07:40 Albumin 3.4 g/dl (3.4-5.0) 02/28/19 07:40 POC Urine HCG, Qual Negative 02/27/19 09:39 RPR Titer Nonreactive (NONREACTIVE) 02/28/19 07:40 lab noted 03/01/19 12:23 long history of hiv treated with ART low wbc patient agrees to follow up with low wbc with ID Assessment: 03/01/19 12:24 alcohol withdrawal sx Plan: continue librium detox regimen
[2019-03-01] MEDS ORDERED: QUEtiapine FUMARATE 100 MG TABLET (FP) ONE (20:32)
[2019-03-01] MEDS: ATORVASTATIN CA 20 MG TABLET (FP) PO SCH (21:21)
[2019-03-01] MEDS: QUEtiapine FUMARATE 300 MG TABLET PO SCH (21:21)
[2019-03-01] MEDS: THIAMINE HCL 100 MG TABLET (FP) PO SCH (21:21)
[2019-03-01] MEDS: MELATONIN 5 MG TABLETS PO PRN (21:22)
[2019-03-02] MEDS ORDERED: chlordiazePOXIDE HCL 10 MG CAPSULE PO PRN
[2019-03-02] MEDS: chlordiazePOXIDE HCL 10 MG CAPSULE PO SCH ×4 (06:03→22:21)
[2019-03-02] MEDS: BICTEGRAV/EMTRICIT/TENOFOV (BIKTARVY) 50-200-25 MG TABLET PO SCH (08:00)
[2019-03-02] MEDS: FAMOTIDINE 20 MG TABLET PO SCH (10:49)
[2019-03-02] MEDS: ASPIRIN COATED 81 MG TABLET.EC PO SCH (10:49)
[2019-03-02] MEDS: HYDROCHLOROTHIAZIDE 25 MG TABLET (FP) PO SCH (10:50)
[2019-03-02] MEDS: SERTRALINE HCL 50 MG TABLET (FP) PO SCH (10:50)
[2019-03-02] MEDS: PRENATAL VITAMINS W/ FOLIC ACID TABLET (FP) PO SCH (10:51)
[2019-03-02] MEDS: amLODIPine BESYLATE 10 MG TABLET (FP) PO SCH (10:51)
[2019-03-02] MEDS: TOLNAFTATE 1% CREAM 15 GM TUBE TP SCH ×2 (10:51→21:06)
--- NOTE | 2019-03-02 12:37 | PN ---
[facility] CIWA - CIWA Score Nausea/Vomitin-Mild Nausea/No Vomiting Muscle Tremors: 4-Moderate,w/Arms Extend Anxiety: 3 Agitation: 2 Paroxysmal Sweats: 2 Orientation: 0-Oriented Tacttile Disturbances: 0-None Auditory Disturbances: 0-None Visual Disturbances: 0-None Headache: 1-Very Mild CIWA-Ar Total Score: 13 S Progress Note (SOAP) Subjective: 53 years old male admitted on 02/27/19 for alcohol withdrawal sx management treated with librium detox regimen patient determines to maintain sober discuss aftercare with staff Objective: 03/02/19 12:35 Vital Signs Temperature 97.1 F L 03/02/19 09:20 Pulse Rate 81 03/02/19 09:20 Respiratory Rate 16 03/02/19 09:20 Blood Pressure 126/85 03/02/19 09:20 O2 Sat by Pulse Oximetry (%) Laboratory Last Values WBC 2.8 K/mm3 (4.0-10.0) L 02/28/19 07:40 RBC 4.40 M/mm3 (3.60-5.2) 02/28/19 07:40 Hgb 12.5 GM/dL (10.7-15.3) 02/28/19 07:40 Hct 37.5 % (32.4-45.2) 02/28/19 07:40 MCV 85.3 fl (80-96) 02/28/19 07:40 MCH 28.3 pg (25.7-33.7) 02/28/19 07:40 MCHC 33.2 g/dl (32.0-36.0) 02/28/19 07:40 RDW 14.1 % (11.6-15.6) 02/28/19 07:40 Plt Count 233 K/MM3 (134-434) 02/28/19 07:40 MPV 8.4 fl (7.5-11.1) 02/28/19 07:40 Sodium 142 mmol/L (136-145) 02/28/19 07:40 Potassium 3.4 mmol/L (3.5-5.1) L 02/28/19 07:40 Chloride 108 mmol/L (98-107) H 02/28/19 07:40 Carbon Dioxide 29 mmol/L (21-32) 02/28/19 07:40 Anion Gap 5 MMOL/L (8-16) L 02/28/19 07:40 BUN 14.4 mg/dL (7-18) 02/28/19 07:40 Creatinine 0.9 mg/dL (0.55-1.3) 02/28/19 07:40 Est GFR (CKD-EPI)AfAm 84.61 02/28/19 07:40 Est GFR (CKD-EPI)NonAf 73.00 02/28/19 07:40 Random Glucose 66 mg/dL (74-106) L 02/28/19 07:40 Calcium 8.8 mg/dL (8.5-10.1) 02/28/19 07:40 Total Bilirubin 0.3 mg/dL (0.2-1) 02/28/19 07:40 AST 16 U/L (15-37) 02/28/19 07:40 ALT 19 U/L (13-61) 02/28/19 07:40 Alkaline Phosphatase 111 U/L (45-117) 02/28/19 07:40 Total Protein 7.2 g/dl (6.4-8.2) 02/28/19 07:40 Albumin 3.4 g/dl (3.4-5.0) 02/28/19 07:40 POC Urine HCG, Qual Negative 02/27/19 09:39 RPR Titer Nonreactive (NONREACTIVE) 02/28/19 07:40 lab noted long history of hiv bringing in to ID for follow up low wbc 03/02/19 12:36 Assessment: 03/02/19 12:37 alcohol withdrawal sx Plan: continue librium detox regimen
[2019-03-02] MEDS ORDERED: QUEtiapine FUMARATE 100 MG TABLET (FP) ONE (19:55)
[2019-03-02] MEDS: THIAMINE HCL 100 MG TABLET (FP) PO SCH (21:04)
[2019-03-02] MEDS: FLUTICASONE PROP 0.05% 16 GM NASAL SPRAY NS SCH (21:04)
[2019-03-02] MEDS: QUEtiapine FUMARATE 300 MG TABLET PO SCH (21:06)
[2019-03-02] MEDS: BUDESONIDE/FORMETEROL FUMARATE 160/4.5 mcg INHALER IH SCH (21:07)
[2019-03-02] MEDS: ATORVASTATIN CA 20 MG TABLET (FP) PO SCH (21:07)
[2019-03-03] MEDS: chlordiazePOXIDE HCL 10 MG CAPSULE PO SCH ×2 (05:39→17:24)
[2019-03-03] MEDS: BICTEGRAV/EMTRICIT/TENOFOV (BIKTARVY) 50-200-25 MG TABLET PO SCH (08:46)
[2019-03-03] MEDS: SERTRALINE HCL 50 MG TABLET (FP) PO SCH (10:32)
[2019-03-03] MEDS: PRENATAL VITAMINS W/ FOLIC ACID TABLET (FP) PO SCH (10:33)
[2019-03-03] MEDS: FAMOTIDINE 20 MG TABLET PO SCH (10:33)
[2019-03-03] MEDS: amLODIPine BESYLATE 10 MG TABLET (FP) PO SCH (10:33)
[2019-03-03] MEDS: ASPIRIN COATED 81 MG TABLET.EC PO SCH (10:33)
[2019-03-03] MEDS: FLUTICASONE PROP 0.05% 16 GM NASAL SPRAY NS SCH ×2 (10:33→21:33)
[2019-03-03] MEDS: HYDROCHLOROTHIAZIDE 25 MG TABLET (FP) PO SCH (10:33)
[2019-03-03] MEDS: TOLNAFTATE 1% CREAM 15 GM TUBE TP SCH ×2 (10:34→21:34)
[2019-03-03] MEDS: BUDESONIDE/FORMETEROL FUMARATE 160/4.5 mcg INHALER IH SCH ×2 (10:34→21:33)
[2019-03-03] MEDS: TIOTROPIUM BROMIDE 2.5 MCG (SPIRIVA) RESPIMAT INHALER IH SCH (10:34)
--- NOTE | 2019-03-03 11:35 | PN ---
[facility] CIWA - CIWA Score Nausea/Vomitin-No Nausea/No Vomiting Muscle Tremors: 2 Anxiety: 2 Agitation: 2 Paroxysmal Sweats: 1-Minimal Palms Moist Orientation: 0-Oriented Tacttile Disturbances: 0-None Auditory Disturbances: 0-None Visual Disturbances: 0-None Headache: 1-Very Mild CIWA-Ar Total Score: 8 BHS Progress Note (SOAP) Subjective: 53 years old female admitted on 02/27/19 for alcohol withdrawal sx management treated with librium detox regimen ate breakfast feeling better less tremor mild anxiety Objective: 03/03/19 11:33 Vital Signs Temperature 98.0 F 03/03/19 09:20 Pulse Rate 88 03/03/19 09:20 Respiratory Rate 18 03/03/19 09:20 Blood Pressure 127/84 03/03/19 09:20 O2 Sat by Pulse Oximetry (%) Laboratory Last Values WBC 2.8 K/mm3 (4.0-10.0) L 02/28/19 07:40 RBC 4.40 M/mm3 (3.60-5.2) 02/28/19 07:40 Hgb 12.5 GM/dL (10.7-15.3) 02/28/19 07:40 Hct 37.5 % (32.4-45.2) 02/28/19 07:40 MCV 85.3 fl (80-96) 02/28/19 07:40 MCH 28.3 pg (25.7-33.7) 02/28/19 07:40 MCHC 33.2 g/dl (32.0-36.0) 02/28/19 07:40 RDW 14.1 % (11.6-15.6) 02/28/19 07:40 Plt Count 233 K/MM3 (134-434) 02/28/19 07:40 MPV 8.4 fl (7.5-11.1) 02/28/19 07:40 Sodium 142 mmol/L (136-145) 02/28/19 07:40 Potassium 3.4 mmol/L (3.5-5.1) L 02/28/19 07:40 Chloride 108 mmol/L (98-107) H 02/28/19 07:40 Carbon Dioxide 29 mmol/L (21-32) 02/28/19 07:40 Anion Gap 5 MMOL/L (8-16) L 02/28/19 07:40 BUN 14.4 mg/dL (7-18) 02/28/19 07:40 Creatinine 0.9 mg/dL (0.55-1.3) 02/28/19 07:40 Est GFR (CKD-EPI)AfAm 84.61 02/28/19 07:40 Est GFR (CKD-EPI)NonAf 73.00 02/28/19 07:40 Random Glucose 66 mg/dL (74-106) L 02/28/19 07:40 Calcium 8.8 mg/dL (8.5-10.1) 02/28/19 07:40 Total Bilirubin 0.3 mg/dL (0.2-1) 02/28/19 07:40 AST 16 U/L (15-37) 02/28/19 07:40 ALT 19 U/L (13-61) 02/28/19 07:40 Alkaline Phosphatase 111 U/L (45-117) 02/28/19 07:40 Total Protein 7.2 g/dl (6.4-8.2) 02/28/19 07:40 Albumin 3.4 g/dl (3.4-5.0) 02/28/19 07:40 POC Urine HCG, Qual Negative 02/27/19 09:39 RPR Titer Nonreactive (NONREACTIVE) 02/28/19 07:40 lab noted 03/03/19 11:33long history of hiv treated with ART with low wbc patient agrees to follow up with her ID provider Assessment: 03/03/19 11:34 alcohol withdrawal sx Plan: continue librium detox regimen
[2019-03-03] MEDS ORDERED: QUEtiapine FUMARATE 100 MG TABLET (FP) ONE (20:30)
[2019-03-03] MEDS: QUEtiapine FUMARATE 300 MG TABLET PO SCH (21:33)
[2019-03-03] MEDS: ATORVASTATIN CA 20 MG TABLET (FP) PO SCH (21:33)
[2019-03-03] MEDS: THIAMINE HCL 100 MG TABLET (FP) PO SCH (21:33)
[2019-03-03] MEDS: MELATONIN 5 MG TABLETS PO PRN (21:34)
[2019-03-03 22:02] VITALS: TEMP 97
[2019-03-04] MEDS ORDERED: chlordiazePOXIDE HCL 10 MG CAPSULE PO ONE (05:00)
[2019-03-04 06:20] VITALS: PULSE 81
[2019-03-04] MEDS: BICTEGRAV/EMTRICIT/TENOFOV (BIKTARVY) 50-200-25 MG TABLET PO SCH (08:31)
[2019-03-04 09:10] VITALS: BP 121/91
[2019-03-04] MEDS: amLODIPine BESYLATE 10 MG TABLET (FP) PO SCH (09:11)
[2019-03-04] MEDS: SERTRALINE HCL 50 MG TABLET (FP) PO SCH (09:12)
[2019-03-04] MEDS: HYDROCHLOROTHIAZIDE 25 MG TABLET (FP) PO SCH (09:12)
[2019-03-04] MEDS: BUDESONIDE/FORMETEROL FUMARATE 160/4.5 mcg INHALER IH SCH (09:13)
[2019-03-04] MEDS: TOLNAFTATE 1% CREAM 15 GM TUBE TP SCH (09:13)
[2019-03-04] MEDS: FAMOTIDINE 20 MG TABLET PO SCH (09:13)
[2019-03-04] MEDS: ASPIRIN COATED 81 MG TABLET.EC PO SCH (09:13)
[2019-03-04] MEDS: FLUTICASONE PROP 0.05% 16 GM NASAL SPRAY NS SCH (11:10)
[2019-03-04] MEDS: PRENATAL VITAMINS W/ FOLIC ACID TABLET (FP) PO SCH (11:10)
[2019-03-04] MEDS: TIOTROPIUM BROMIDE 2.5 MCG (SPIRIVA) RESPIMAT INHALER IH SCH (11:10)
--- NOTE | 2019-03-04 11:37 | DS ---
[facility] Detox Discharge Summary Admission Date: 02/27/19 Discharge Date: 03/04/19 - History Present History: Alcohol Dependence Additional Comments: 53 years old female admitted on 02/27/19 for alcohol withdrawal sxs management treated with librium detox regimen patient is alert oriented x 3 respiratory clear lung bilaterally on auscultation abdomen soft no rebound tenderness extremities full range of motion - Physical Exam Results Vital Signs: Vital Signs Temperature 97 F L 03/04/19 09:09 Pulse Rate 81 03/04/19 09:09 Respiratory Rate 18 03/04/19 09:09 Blood Pressure 121/91 03/04/19 09:09 O2 Sat by Pulse Oximetry (%) Pertinent Admission Physical Exam Findings: alcohol withdrawal sx Laboratory Last Values WBC 2.8 K/mm3 (4.0-10.0) L 02/28/19 07:40 RBC 4.40 M/mm3 (3.60-5.2) 02/28/19 07:40 Hgb 12.5 GM/dL (10.7-15.3) 02/28/19 07:40 Hct 37.5 % (32.4-45.2) 02/28/19 07:40 MCV 85.3 fl (80-96) 02/28/19 07:40 MCH 28.3 pg (25.7-33.7) 02/28/19 07:40 MCHC 33.2 g/dl (32.0-36.0) 02/28/19 07:40 RDW 14.1 % (11.6-15.6) 02/28/19 07:40 Plt Count 233 K/MM3 (134-434) 02/28/19 07:40 MPV 8.4 fl (7.5-11.1) 02/28/19 07:40 Sodium 142 mmol/L (136-145) 02/28/19 07:40 Potassium 3.4 mmol/L (3.5-5.1) L 02/28/19 07:40 Chloride 108 mmol/L (98-107) H 02/28/19 07:40 Carbon Dioxide 29 mmol/L (21-32) 02/28/19 07:40 Anion Gap 5 MMOL/L (8-16) L 02/28/19 07:40 BUN 14.4 mg/dL (7-18) 02/28/19 07:40 Creatinine 0.9 mg/dL (0.55-1.3) 02/28/19 07:40 Est GFR (CKD-EPI)AfAm 84.61 02/28/19 07:40 Est GFR (CKD-EPI)NonAf 73.00 02/28/19 07:40 Random Glucose 66 mg/dL (74-106) L 02/28/19 07:40 Calcium 8.8 mg/dL (8.5-10.1) 02/28/19 07:40 Total Bilirubin 0.3 mg/dL (0.2-1) 02/28/19 07:40 AST 16 U/L (15-37) 02/28/19 07:40 ALT 19 U/L (13-61) 02/28/19 07:40 Alkaline Phosphatase 111 U/L (45-117) 02/28/19 07:40 Total Protein 7.2 g/dl (6.4-8.2) 02/28/19 07:40 Albumin 3.4 g/dl (3.4-5.0) 02/28/19 07:40 POC Urine HCG, Qual Negative 02/27/19 09:39 RPR Titer Nonreactive (NONREACTIVE) 02/28/19 07:40 lab noted long history of hiv treated with ART patient will bringing in lab report to primary ID provider for follow up - Treatment Hospital Course: Detox Protocol Followed, Detoxed Safely, Responded well, Discharged Condition Good, Rehab Referral Accepted Patient has Accepted a Rehab Referral to: community support approch - Medication Discharge Medications: Ambulatory Orders Metoprolol Succinate [Toprol XL -] 50 mg PO DAILY #14 tab.sr.24h 04/26/18 Tiotropium [place] [Spiriva] 1 inh IH DAILY #1 cap.w.dev 04/26/18 Ranitidine HCl [Zantac] 150 mg PO BID 06/20/18 Varenicline Tartrate [Chantix -] 0.5 mg PO DAILY tab 10/21/18 Amlodipine Besylate [Norvasc -] 10 mg PO DAILY #14 tablet 10/27/18 Aspirin Coated [Ecotrin -] 81 mg PO DAILY #30 tablet.ec 10/27/18 Atorvastatin Ca [Lipitor] 20 mg PO HS #30 tablet 10/27/18 Bictegrav/Emtricit/Tenofov Ala [Biktarvy 50-200-25 mg Tablet] 1 each PO DAILY # 30 tablet 10/27/18 Fluticasone Prop 0.05% Nasal [Flonase -] 1 - 2 spray NS BID #1 spray 10/27/18 Hydrochlorothiazide [Hctz -] 25 mg PO DAILY #30 tablet 10/27/18 Mometasone/Formoterol [Dulera 200 Mcg/5 Mcg Inhaler] 2 inh IH BID #1 hfa.aer.ad 10/27/18 Albuterol Sulfate Inhaler - [Ventolin HFA Inhaler -] 2 inh PO Q4H PRN #1 inh 10/30 Quetiapine Fumarate [Seroquel -] 300 mg PO HS #30 tablet 01/18/19 Sertraline HCl [Zoloft] 100 mg PO DAILY #30 tablet 01/18/19 - Diagnosis (1) Alcohol dependence with uncomplicated withdrawal Current Visit: Yes Status: Acute (2) Substance induced mood disorder Current Visit: Yes Status: Suspected (3) Asthma Current Visit: Yes Status: Chronic Qualifiers: Asthma severity: mild Asthma persistence: intermittent Asthma complication type: uncomplicated Qualified Code(s): J45.20 - Mild intermittent asthma, uncomplicated (4) COPD (chronic obstructive pulmonary disease) Current Visit: Yes Status: Chronic Qualifiers: COPD type: emphysema Emphysema type: other Qualified Code(s): J43.8 - Other emphysema (5) Essential hypertension Current Visit: Yes Status: Chronic (6) GERD (gastroesophageal reflux disease) Current Visit: Yes Status: Chronic Qualifiers: Esophagitis presence: without esophagitis Qualified Code(s): K21.9 - Gastro -esophageal reflux disease without esophagitis (7) HIV (human immunodeficiency virus infection) Current Visit: Yes Status: Chronic Qualifiers: HIV symptom status: asymptomatic Qualified Code(s): Z21 - Asymptomatic human immunodeficiency virus [HIV] infection status (8) Hypercholesterolemia Current Visit: Yes Status: Chronic (9) Nicotine dependence Current Visit: Yes Status: Acute Qualifiers: Nicotine product type: cigarettes Substance use status: in withdrawal Qualified Code(s): F17.213 - Nicotine dependence, cigarettes, with withdrawal (10) History of syphilis Current Visit: Yes Status: Chronic (11) HIV (human immunodeficiency virus infection) Current Visit: Yes Status: Chronic Qualifiers: HIV symptom status: asymptomatic Qualified Code(s): Z21 - Asymptomatic human immunodeficiency virus [HIV] infection status - AMA Did Patient Leave Against Medical Advice: No CIWA Score - CIWA Score Nausea/Vomitin-No Nausea/No Vomiting Muscle Tremors: 1-None Visible, but [place] Anxiety: 1-Mildly Anxious Agitation: 2 Paroxysmal Sweats: No Perspiration Orientation: 0-Oriented Tacttile Disturbances: 0-None Auditory Disturbances: 0-None Visual Disturbances: 0-None Headache: 1-Very Mild CIWA-Ar Total Score: 5
== END 2019-03-04 09:16 | disposition home or self-care (01) | DRG 774 ==
LOC: YASAS 08:37 → Y3N 11:12
PROVIDERS: ADMIT Allergy & Immunology; ATTEND Allergy & Immunology
PROC: HZ2ZZZZ Detoxification Services for Substance Abuse Treatment (ICD-10-PCS; principal; 2019-02-27)
DX: F10.230 Alcohol dependence with withdrawal, uncomplicated (principal); F14.20 Cocaine dependence, uncomplicated; F17.213 Nicotine dependence, cigarettes, with withdrawal; F19.24 Other psychoactive substance dependence with psychoactive substance-induced mood disorder; F19.282 Other psychoactive substance dependence with psychoactive substance-induced sleep disorder; F31.9 Bipolar disorder, unspecified; F20.9 Schizophrenia, unspecified; Z21 Asymptomatic human immunodeficiency virus [HIV] infection status; I10 Essential (primary) hypertension; J43.8 Other emphysema; J45.20 Mild intermittent asthma, uncomplicated; J30.9 Allergic rhinitis, unspecified; M54.5 Low back pain; E78.00 Pure hypercholesterolemia, unspecified; D72.819 Decreased white blood cell count, unspecified; K21.9 Gastro-esophageal reflux disease without esophagitis; M16.12 Unilateral primary osteoarthritis, left hip; G62.9 Polyneuropathy, unspecified; R01.1 Cardiac murmur, unspecified; Z86.19 Personal history of other infectious and parasitic diseases; Z88.1 Allergy status to other antibiotic agents; Z88.8 Allergy status to other drugs, medicaments and biological substances; Z91.013 Allergy to seafood; Z91.018 Allergy to other foods
CPT/HCPCS: 36415; 80053; 81025; 85027; 86593

== ENCOUNTER 2019-04-17 08:32 | Inpatient (IN) | payer OTHER ==
[2019-04-17 09:14] VITALS: BMI 26.9
[2019-04-17] MEDS ORDERED: ACETAMINOPHEN 325 MG TABLET (FP) PO PRN ×2 (09:45)
[2019-04-17] MEDS ORDERED: MAGNESIUM HYDROX 2400MG/30ML ORAL SUSPENSION 30 ML CUP PO PRN (09:45)
[2019-04-17] MEDS ORDERED: MAG HYDROX/AL HYDROX/SIMETH 30 ML UNIT-DOSE CUP PO PRN (09:45)
[2019-04-17] MEDS ORDERED: chlordiazePOXIDE HCL 25 MG CAPSULE PO ONE (09:45)
[2019-04-17] MEDS ORDERED: METHOCARBAMOL 500 MG TABLET PO PRN (09:45)
[2019-04-17] MEDS ORDERED: MAGNESIUM CITRATE 300 ML BOTTLE PO PRN (09:45)
[2019-04-17] MEDS ORDERED: MELATONIN 5 MG TABLETS PO PRN (09:45)
[2019-04-17] MEDS ORDERED: MENTHOL/PHENOL 1 EACH UD MM PRN (09:45)
[2019-04-17] MEDS ORDERED: chlordiazePOXIDE HCL 25 MG CAPSULE PO PRN (09:45)
[2019-04-17] MEDS ORDERED: hydrOXYzine PAMOATE 25 MG CAPSULE (FP) PO PRN (09:45)
[2019-04-17] MEDS ORDERED: BISMUTH SUBSALICYLATE 524 MG/30 ML UD PO PRN (09:45)
--- NOTE | 2019-04-17 09:45 | HP ---
CIWA Score Nausea/Vomitin Muscle Tremors: 3 Anxiety: 4-Mod. Anxious/Guarded Agitation: 2 Paroxysmal Sweats: No Perspiration Orientation: 0-Oriented Tacttile Disturbances: 1-Very Mild Itch/Numbness Auditory Disturbances: 1-Very Mild Visual Disturbances: 1-Very Mild Sensitivity Headache: 2-Mild CIWA-Ar Total Score: 17 - Admission Criteria OASAS Guidelines: Admission for Medically Managed Detox: Requires at least one of the followin. CIWA greater than 12 2. Seizures within the past 24 hours 3. Delirium tremens within the past 24 hours 4. Hallucinations within the past 24 hours 5. Acute intervention needed for co occurring medical disorder 6. Acute intervention needed for co occurring psychiatric disorder 7. Severe withdrawal that cannot be handled at a lower level of care (continued vomiting, continued diarrhea, abnormal vital signs) requiring intravenous medication and/or fluids 8. 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: Yes: Migraine ("i used to be on Imitrex") Cardiovascular: Yes: HTN, Hyperlipdemia, Murmur Pulmonary: Yes: Asthma, COPD Gastrointestinal: Yes: GERD ...LMP: 08/12/13 Infectious Disease: Yes: HIV, STD's (Hx syphilis/Gonorrhea at 15) Psych: Yes: Addictions, Depression Musculoskeletal: Yes: Chronic low back pain, Osteoarthritis (hip) ENT: Yes: Allergic Rhinitis (on flonase), Other Dermatology: Yes: Other (tinea pedis) - Smoking History Smoking history: Current every day smoker Have you smoked in the past 12 months: Yes Aproximately how many cigarettes per day: 5 - Alcohol/Substance Use Hx Alcohol Use: Yes Number of Drinks Daily: 3 (3 cobra/1-2 pt vodka) History of Substance Use: reports: Cocaine Date of Last Use: 04/16/19 (After d/c from [facility] today) - Social History Usual Living Arrangement: Yes: Alone ADL: Independent History of Recent Travel: No Admission ROS BHS - HPI Chief Complaint: It's my new year resolution - get free of the drugs and alcohol - my life will change so I can get a home and go back to work Allergies/Adverse Reactions: Allergies Allergy/AdvReac Type Severity Reaction Status Date / Time lisinopril Allergy Severe Swelling Verified 04/17/19 09:02 turkey Allergy Severe Rash Verified 04/17/19 09:02 Fish Containing Products Allergy Rash Verified 04/17/19 09:02 erythromycin base AdvReac Severe Rash Verified 04/17/19 09:02 sulfamethoxazole AdvReac Severe Rash Verified 04/17/19 09:02 [From Bactrim] trimethoprim [From Bactrim] AdvReac Severe Rash Verified 04/17/19 09:02 History of Present Illness: 53 yo woman here for detox from alcohol, also using cocaine. This is one of multiple admissions for treatment. Denies seizures but does have black outs. Patient was evaluated in [place] ED yesterday - she brought in her discharge papers which I reviewed -was seen for difficulty breathing and chest pain - both symptoms have resolved - she was given tylenol, norvasc, librium, toprol and K-dur while in the ED and had a CXR and EKG. She was diagnosed with a viral URI and alcohol dependence and HTN. Patient also has HIV and is adherent to her medications. Patient used to see psych but needs a new one as they had a disagreement - now her meds are prescribed by her primary. Never hospitalized for psychiatric reasons - tried to commit suicide at age 11 (took mother's pills. Patient states she lives in [facility], is not on disability. Exam Limitations: No Limitations - Ebola screening Have you traveled outside of the country in the last 21 days: No Have you had contact with anyone from an Ebola affected area: No Do you have a fever: No - Review of Systems Constitutional: Malaise, Changes in sleep, Weakness EENT: reports: No Symptoms Reported Respiratory: reports: Cough, SOB with Exertion, Wheezing Cardiac: reports: No Symptoms Reported GI: reports: Nausea, Poor Appetite, Abdominal cramping : reports: Frequency Musculoskeletal: reports: Joint Pain (hip), Muscle Pain, Muscle Weakness Integumentary: reports: Dryness Neuro: reports: Headache Endocrine: reports: No Symptoms Reported Hematology: reports: No Symptoms Reported Psychiatric: reports: Judgement Intact, Mood/Affect Appropiate, Orientated x3 Other Systems: Reviewed and Negative Patient History - Patient Medical History Hx Anemia: No Hx Asthma: Yes (on med) Hx Chronic Obstructive Pulmonary Disease (COPD): Yes (on med) Hx Cancer: No Hx Cardiac Disorders: Yes (heart murmur ) Hx Congestive Heart Failure: No Hx Hypertension: Yes (on med) Hx Hypercholesterolemia: Yes (on med) Hx Pacemaker: No HX Cerebrovascular Accident: No Hx Seizures: No Hx Dementia: No Hx Diabetes: No Hx Gastrointestinal Disorders: Yes (GERD) Hx Liver Disease: No Hx Genitourinary Disorders: No Hx Sexually Transmitted Disorders: Yes (HIV,Syphilis & gonorrhea,) Hx Renal Disease (ESRD): No Hx Thyroid Disease: No Hx Human Immunodeficiency Virus (HIV): Yes (ON BICTARVY ,CD4-= 206 02/27/19) Hx Hepatitis C: No Hx Depression: Yes (never hospitalized, on meds) Hx Suicide Attempt: Yes (with pills at age 11) Hx Bipolar Disorder: Yes (on meds) Hx Schizophrenia: Yes ('sometimes I hear voices') Other Medical History: low back pain; tinea pedis; OA hip - Patient Surgical History Past Surgical History: Yes Hx Neurologic Surgery: No Hx Cataract Extraction: No Hx Cardiac Surgery: No Hx Lung Surgery: No Hx Breast Surgery: No Hx Breast Biopsy: No Hx Abdominal Surgery: No Hx Appendectomy: No Hx Cholecystectomy: No Hx Genitourinary Surgery: No Hx Section: No Hx Orthopedic Surgery: No Hx Hysterectomy: No Other Surgical History: ectopic at age 35 Anesthesia Reaction: No - PPD History Previous Implant?: Yes Documented Results: Negative w/proof Implanted On Prior [facility] Admission?: Yes Date: 03/01/19 Results: 0mm PPD to be Administered?: No - Reproductive History Patient is a Female of Child Bearing Age (11 -55 yrs old): Yes Last Menstrual Period: 08/12/13 - Smoking Cessation Smoking history: Current every day smoker Have you smoked in the past 12 months: Yes Aproximately how many cigarettes per day: 3 Cigars Per Day: 0 Hx Chewing Tobacco Use: No Initiated information on smoking cessation: Yes 'Breaking Loose' booklet given: 04/17/19 (give on floor) - Substance & Tx. History Hx Alcohol Use: Yes Hx Substance Use: Yes Substance Use Type: Alcohol, Cocaine Hx Substance Use Treatment: Yes (detox, rehab) - Substances abused Alcohol Substance route: Oral Frequency: Daily Amount used: 4 pts. liquor, 6 beers ( 24 oz cans) Age of first use: 16 Date of last use: 04/16/19 Cocaine Substance route: Smoking Frequency: Daily Amount used: $200 Age of first use: 18 Date of last use: 08/13/18 Crack Substance route: Smoking Frequency: Daily Amount used: $200 Age of first use: 18 Date of last use: 04/16/19 Admission Physical Exam BHS - Vital Signs Vital Signs: Vital Signs - 24 hr 04/17/19 09:08 Temperature 97.9 F Pulse Rate 89 Respiratory 18 Rate Blood Pressure 137/90 - Physical General Appearance: Yes: Nourished, Appropriately Dressed, Moderate Distress, Tremorous, Anxious HEENTM: Yes: EOMI, Hearing grossly Normal, Normocephalic, Normal Voice, Pharynx Normal Respiratory: Yes: No Respiratory Distress, Rhonchi, Wheezing Neck: Yes: No masses,lesions,Nodules Breast: Yes: Breast Exam Deferred Cardiology: Yes: Regular Rhythm, Regular Rate Abdominal: Yes: Soft Genitourinary: Yes: Frequency Back: Yes: Normal Inspection Musculoskeletal: Yes: Gait Steady, Back pain, Joint Stiffness (left hip stiffness), Muscle Pain Extremities: Yes: Non-Tender, Tremors, Other (hip pain/OA- chronic) Neurological: Yes: Fully Oriented, Alert, Normal Mood/Affect, Normal Response Integumentary: Yes: Normal Color, Dry, Warm, Other (low back/sacral area hyperpigementation from past herpes infection - c/o itching) Lymphatic: Yes: Within Normal Limits - Diagnostic (1) Alcohol dependence with uncomplicated withdrawal Current Visit: Yes Status: Chronic (2) Cocaine dependence Current Visit: Yes Status: Chronic Qualifiers: Substance use status: uncomplicated Qualified Code(s): F14.20 - Cocaine dependence, uncomplicated (3) Nicotine dependence Current Visit: Yes Status: Acute Qualifiers: Nicotine product type: cigarettes Substance use status: in withdrawal Qualified Code(s): F17.213 - Nicotine dependence, cigarettes, with withdrawal (4) Tinea pedis Current Visit: Yes Status: Acute Qualifiers: Laterality: bilateral Qualified Code(s): B35.3 - Tinea pedis (5) Asthma Current Visit: Yes Status: Chronic Qualifiers: Asthma severity: mild Asthma persistence: intermittent Asthma complication type: uncomplicated Qualified Code(s): J45.20 - Mild intermittent asthma, uncomplicated (6) Back pain Current Visit: Yes Status: Chronic Qualifiers: Chronicity: chronic Back pain laterality: bilateral Sciatica presence: without sciatica (7) COPD (chronic obstructive pulmonary disease) Current Visit: Yes Status: Chronic Qualifiers: COPD type: emphysema Emphysema type: other Qualified Code(s): J43.8 - Other emphysema (8) Essential hypertension Current Visit: Yes Status: Chronic (9) HIV (human immunodeficiency virus infection) Current Visit: Yes Status: Chronic Qualifiers: HIV symptom status: asymptomatic Qualified Code(s): Z21 - Asymptomatic human immunodeficiency virus [HIV] infection status (10) History of syphilis Current Visit: Yes Status: Chronic Comment: states treated (11) Hypercholesterolemia Current Visit: Yes Status: Chronic (12) Murmur, cardiac Current Visit: Yes Status: Chronic Comment: states had echo and told no need for treatment - asymptomatic (13) Nicotine dependence Current Visit: Yes Status: Chronic Qualifiers: Nicotine product type: cigarettes Substance use status: uncomplicated Qualified Code(s): F17.210 - Nicotine dependence, cigarettes, uncomplicated (14) Osteoarthritis of left hip Current Visit: Yes Status: Chronic Qualifiers: Osteoarthritis type: primary Qualified Code(s): M16.12 - Unilateral primary osteoarthritis, left hip Cleared for Admission S - Detox or Rehab S Level of Care: Medically Managed Detox Regimen/Protocol: Librium Breathalyzer - Breathalyzer Breathalyzer: 0 Urine Drug Screen - Test Device Lot number: [id number] Expiration date: 11/10/20 - Control Is test valid?: Yes - Results Drug screen NEGATIVE: No Urine drug screen results: [facility]-Cocaine Inpatient Rehab Admission - Rehab Decision to Admit Inpatient rehab admission?: No
[2019-04-17] MEDS ORDERED: ALBUTEROL SO4 2.5/IPRATROPIUM 0.5 INH SOL 3 ML VIAL.NEB. NEB PRN (09:49)
[2019-04-17] MEDS: chlordiazePOXIDE HCL 25 MG CAPSULE PO SCH ×3 (11:01→22:19)
[2019-04-17] MEDS: TOLNAFTATE 1% CREAM 15 GM TUBE TP SCH ×2 (11:01→22:23)
[2019-04-17] MEDS: PANTOPRAZOLE 20 MG TABLET (FP) PO SCH (11:01)
[2019-04-17] MEDS: BUDESONIDE/FORMETEROL FUMARATE 160/4.5 mcg INHALER IH SCH ×2 (13:57→22:19)
[2019-04-17] MEDS: FLUTICASONE PROP 0.05% 16 GM NASAL SPRAY NS SCH ×2 (13:57→22:23)
[2019-04-17] MEDS: BICTEGRAV/EMTRICIT/TENOFOV (BIKTARVY) 50-200-25 MG TABLET PO SCH (13:57)
[2019-04-17] MEDS: BACITRACIN 15 GM TUBE TOPICAL OINTMENT TP SCH (13:57)
[2019-04-17] MEDS: PRENATAL VITAMINS W/ FOLIC ACID TABLET (FP) PO SCH (13:58)
[2019-04-17] MEDS: VARENICLINE TARTRATE 0.5 MG TAB PO SCH ×2 (15:03→22:22)
[2019-04-17 15:24] LABS: HEMATOCRIT 38.9 % (32.4-45.2); HEMOGLOBIN 12.9 GM/dL (10.7-15.3); MCH 28.1 pg (25.7-33.7); MCHC 33.2 g/dl (32.0-36.0); MEAN CELL VOLUME 84.6 fl (80-96); MEAN PLT VOLUME 9.2 fl (7.5-11.1); PLATELET COUNT 252 K/MM3 (134-434); RDW 15.1 % (11.6-15.6); WHITE BLOOD COUNT 3.4 K/mm3 (4.0-10.0)
[2019-04-17 15:32] LABS: ALBUMIN 3.7 g/dl (3.4-5.0); BILIRUBIN,TOTAL 0.3 mg/dL (0.2-1); BLOOD UREA NITROGEN 17.5 mg/dL (7-18); CALCIUM 9.1 mg/dL (8.5-10.1); CREATININE 0.9 mg/dL (0.55-1.3); POTASSIUM 3.3 mmol/L (3.5-5.1); TOT PROT 7.6 g/dl (6.4-8.2)
[2019-04-17] MEDS: ALBUTEROL SO4 8 GM HFA INHALER IH PRN (17:15)
--- NOTE | 2019-04-17 17:16 | CONSULT ---
[facility] Psychiatric Consult - Data Date of interview: 04/17/19 Admission source: [facility] Identifying data: Revisit to [facility] and admission to [address] [place] [address] for this 53 y/o AA female self-referred for detoxification treatment. MORIS issues : alcohol, cocaine, nicotine. Patient is , a mother of two, domiciled, unemployed and supported on [employer] funds. Substance Abuse History: Discussed with the patient. Details in current [facility] report as follows : Smoking history: Current every day smoker. Have you smoked in the past 12 months: Yes. Aproximately how many cigarettes per day: 3. Cigars Per Day: 0. Hx Chewing Tobacco Use: No. Initiated information on smoking cessation: Yes. 'Breaking Loose' booklet given: 04/17/19 (give on floor ). - Substance & Tx. History. Hx Alcohol Use: Yes. Hx Substance Use: Yes. Substance Use Type: Alcohol, Cocaine. Hx Substance Use Treatment: Yes (detox, rehab). - Substances abused. Alcohol. Substance route: Oral. Frequency: Daily. Amount used: 4 pts. liquor, 6 beers ( 24 oz cans). Age of first use: 16. Date of last use: 04/16/19. Cocaine. Substance route: Smoking. Frequency: Daily. Amount used: $200. Age of first use: 18. Date of last use: 08/13/18. Crack. Substance route: Smoking. Frequency: Daily. Amount used : $200. Age of first use: 18. Date of last use: 04/16/19 Medical History: Medical profile is remarkable for past treatment for syphilis, chlamydia/gonorrhea (adolescence), HIV infection since 2013 (on ART medications), hypertension, COPD, GERD, bronchial asthma and hypercholesterolemia. Noted past history of ectopic (age 30). Psychiatric History: Patient denies history of psychiatric hospitalizations. Ms Nathan reports that she got diagnosed with MDD (2012) during follow-up at the [facility]. Patient has been prescribed seroquel + sertraline. She admits to inconsistent adherence to her medications (due, as per self-report, to continuous substance use + unavailability of her usual psychiatrist who has left the program). Currently, according to patient she is still maintained on a regimen of seroquel 300 mg/hs + zoloft 100 mg/day ( refills prescribed by Dr Thompson, patient's primary care physician). Patient reports a distant history of suicide attempt (age 11) via overdose with pills ( mother's medications). Physical/Sexual Abuse/Trauma History: Not discused in this interview. Patient declines. Additional Comment: Urine drug screen results: CHRISTOPHE-Cocaine. Noted. Mental Status Exam - Mental Status Exam Alert and Oriented to: Time, Place, Person Cognitive Function: Grossly Intact Patient Appearance: Well Groomed (overweight) Mood: Withdrawn Affect: Mood Congruent, Constricted Patient Behavior: Cooperative Speech Pattern: Clear Voice Loudness: Normal Thought Process: Goal Oriented Thought Disorder: Not Present Hallucinations: Denies Suicidal Ideation: Denies Homicidal Ideation: Denies Insight/Judgement: Poor Sleep: Poorly, Difficulty falling asleep Appetite: Good Gait/Station: Normal Psychiatric Findings - Problem List ([place] 1, 2,3) (1) Alcohol dependence with uncomplicated withdrawal Current Visit: Yes Status: Acute (2) Alcohol use disorder Current Visit: Yes Status: Chronic (3) Cocaine dependence Current Visit: Yes Status: Chronic Qualifiers: Substance use status: uncomplicated Qualified Code(s): F14.20 - Cocaine dependence, uncomplicated (4) Nicotine dependence Current Visit: Yes Status: Chronic Qualifiers: Nicotine product type: cigarettes Substance use status: in withdrawal Qualified Code(s): F17.213 - Nicotine dependence, cigarettes, with withdrawal (5) Substance induced mood disorder Current Visit: Yes Status: Chronic (6) History of depression Current Visit: Yes Status: Chronic (7) Insomnia Current Visit: Yes Status: Chronic - Initial Treatment Plan Initial Treatment Plan: Psychoeducation. Sleep hygiene. Detoxification. [employer] spoke to pharmacist at [id number] for verification of medications ) : most recent refills are for seroquel 300 mg/hs + zoloft 100 mg/day dated 01/19/19. Resumed : zoloft 100 mg po daily + seroquel 200 mg po hs (reduced ). Side effects/benefits of both drugs are discussed wit patient. Ms Nathan is in agreement with this plan of care. Gave consent (verbal) to MD. Ly.
[2019-04-17] MEDS ORDERED: QUEtiapine FUMARATE 100 MG TABLET (FP) PO SCH (22:00)
[2019-04-17] MEDS: THIAMINE HCL 100 MG TABLET (FP) PO SCH (22:19)
[2019-04-17] MEDS: ATORVASTATIN CA 20 MG TABLET (FP) PO SCH (22:20)
[2019-04-17] MEDS: QUEtiapine FUMARATE 200 MG TABLET PO SCH (22:20)
[2019-04-18] MEDS: chlordiazePOXIDE HCL 25 MG CAPSULE PO SCH ×4 (05:44→22:12)
[2019-04-18] MEDS ORDERED: PATIENT'S OWN MEDICATION (NON-FORMULARY) (Sertraline Hcl [Zoloft] 100 MG) PO ONE (10:00)
[2019-04-18] MEDS ORDERED: SERTRALINE HCL 50 MG TABLET (FP) PO SCH (10:00)
[2019-04-18] MEDS: BUDESONIDE/FORMETEROL FUMARATE 160/4.5 mcg INHALER IH SCH ×2 (10:20→22:11)
[2019-04-18] MEDS: PRENATAL VITAMINS W/ FOLIC ACID TABLET (FP) PO SCH (10:20)
[2019-04-18] MEDS: TOLNAFTATE 1% CREAM 15 GM TUBE TP SCH ×2 (10:21→22:14)
[2019-04-18] MEDS: FLUTICASONE PROP 0.05% 16 GM NASAL SPRAY NS SCH ×2 (10:21→22:10)
[2019-04-18] MEDS: BACITRACIN 15 GM TUBE TOPICAL OINTMENT TP SCH (10:21)
[2019-04-18] MEDS: VARENICLINE TARTRATE 0.5 MG TAB PO SCH ×2 (10:22→22:13)
[2019-04-18] MEDS: BICTEGRAV/EMTRICIT/TENOFOV (BIKTARVY) 50-200-25 MG TABLET PO SCH (10:22)
[2019-04-18] MEDS: PANTOPRAZOLE 20 MG TABLET (FP) PO SCH (10:25)
[2019-04-18] MEDS: HYDROCHLOROTHIAZIDE 25 MG TABLET (FP) PO SCH (10:25)
[2019-04-18] MEDS: ASPIRIN COATED 81 MG TABLET.EC PO SCH (10:25)
[2019-04-18] MEDS: amLODIPine BESYLATE 10 MG TABLET (FP) PO SCH (10:25)
[2019-04-18] MEDS ORDERED: cloNIDine HCL 0.1 MG TABLET PO PRN (12:52)
--- NOTE | 2019-04-18 13:02 | PN ---
[facility] CIWA - CIWA Score Nausea/Vomitin-Mild Nausea/No Vomiting Muscle Tremors: 3 Anxiety: 4-Mod. Anxious/Guarded Agitation: 2 Paroxysmal Sweats: 2 Orientation: 0-Oriented Tacttile Disturbances: 0-None Auditory Disturbances: 1-Very Mild Visual Disturbances: 0-None Headache: 0-None Present CIWA-Ar Total Score: 13 S Progress Note (SOAP) Subjective: 53 years old female admitted on 04/17/19 for alcohol withdrawal sx management treating with librium detox regimen patient is taking zoloft 100mg po daily had one dose of zoloft yesterday seen by psychiatrist continue zoloft 100 mg po daily long history of hypertension increase metoprolol to 75mg po today Objective: 04/18/19 13:00 Vital Signs Temperature 98.9 F 04/18/19 09:30 Pulse Rate 82 04/18/19 09:30 Respiratory Rate 18 04/18/19 09:30 Blood Pressure 142/97 04/18/19 09:30 O2 Sat by Pulse Oximetry (%) Laboratory Last Values WBC 3.4 K/mm3 (4.0-10.0) L 04/17/19 10:00 RBC 4.60 M/mm3 (3.60-5.2) 04/17/19 10:00 Hgb 12.9 GM/dL (10.7-15.3) 04/17/19 10:00 Hct 38.9 % (32.4-45.2) 04/17/19 10:00 MCV 84.6 fl (80-96) 04/17/19 10:00 MCH 28.1 pg (25.7-33.7) 04/17/19 10:00 MCHC 33.2 g/dl (32.0-36.0) 04/17/19 10:00 RDW 15.1 % (11.6-15.6) 04/17/19 10:00 Plt Count 252 K/MM3 (134-434) 04/17/19 10:00 MPV 9.2 fl (7.5-11.1) 04/17/19 10:00 Sodium 142 mmol/L (136-145) 04/17/19 10:00 Potassium 3.3 mmol/L (3.5-5.1) L 04/17/19 10:00 Chloride 108 mmol/L (98-107) H 04/17/19 10:00 Carbon Dioxide 26 mmol/L (21-32) 04/17/19 10:00 Anion Gap 7 MMOL/L (8-16) L 04/17/19 10:00 BUN 17.5 mg/dL (7-18) 04/17/19 10:00 Creatinine 0.9 mg/dL (0.55-1.3) 04/17/19 10:00 Est GFR (CKD-EPI)AfAm 84.61 04/17/19 10:00 Est GFR (CKD-EPI)NonAf 73.00 04/17/19 10:00 Random Glucose 128 mg/dL (74-106) H 04/17/19 10:00 Calcium 9.1 mg/dL (8.5-10.1) 04/17/19 10:00 Total Bilirubin 0.3 mg/dL (0.2-1) 04/17/19 10:00 AST 25 U/L (15-37) 04/17/19 10:00 ALT 25 U/L (13-61) 04/17/19 10:00 Alkaline Phosphatase 116 U/L (45-117) 04/17/19 10:00 Total Protein 7.6 g/dl (6.4-8.2) 04/17/19 10:00 Albumin 3.7 g/dl (3.4-5.0) 04/17/19 10:00 RPR Titer Nonreactive (NONREACTIVE) 04/17/19 10:00 lab noted Assessment: 04/18/19 13:01 alcohol withdrawal hypertension Plan: librium regimen metoprolol 50mg po bid begin tomorrow 04/19/19
[2019-04-18] MEDS: NICOTINE POLACRILEX 2 MG GUM BUC PRN ×2 (15:26→22:32)
[2019-04-18] MEDS: ATORVASTATIN CA 20 MG TABLET (FP) PO SCH (22:12)
[2019-04-18] MEDS: QUEtiapine FUMARATE 200 MG TABLET PO SCH (22:12)
[2019-04-18] MEDS: THIAMINE HCL 100 MG TABLET (FP) PO SCH (22:13)
[2019-04-18] MEDS: ALBUTEROL SO4 8 GM HFA INHALER IH PRN (22:17)
[2019-04-19] MEDS: chlordiazePOXIDE HCL 25 MG CAPSULE PO SCH ×4 (05:34→22:25)
[2019-04-19] MEDS: ALBUTEROL SO4 8 GM HFA INHALER IH PRN (05:37)
--- NOTE | 2019-04-19 10:28 | PN ---
[facility] CIWA - CIWA Score Nausea/Vomitin-Mild Nausea/No Vomiting Muscle Tremors: 3 Anxiety: 3 Agitation: 0-Normal Activity Paroxysmal Sweats: 2 Orientation: 0-Oriented Tacttile Disturbances: 0-None Auditory Disturbances: 1-Very Mild Visual Disturbances: 0-None Headache: 1-Very Mild CIWA-Ar Total Score: 11 [facility] Progress Note (SOAP) Subjective: 53 years old female admitted on 04/17/19 for alcohol withdrawal sx management treating with librium detox regimen ate breakfast resting on bed strong recommend to attend detox groups and meetings long history of bp elevation treated with metoprolol antihypertensant has been increased while in detox monitoring bp closely Objective: 04/19/19 10:35 Vital Signs Temperature 97.7 F 04/19/19 09:06 Pulse Rate 78 04/19/19 09:06 Respiratory Rate 18 04/19/19 09:06 Blood Pressure 128/76 04/19/19 09:06 O2 Sat by Pulse Oximetry (%) Laboratory Last Values WBC 3.4 K/mm3 (4.0-10.0) L 04/17/19 10:00 RBC 4.60 M/mm3 (3.60-5.2) 04/17/19 10:00 Hgb 12.9 GM/dL (10.7-15.3) 04/17/19 10:00 Hct 38.9 % (32.4-45.2) 04/17/19 10:00 MCV 84.6 fl (80-96) 04/17/19 10:00 MCH 28.1 pg (25.7-33.7) 04/17/19 10:00 MCHC 33.2 g/dl (32.0-36.0) 04/17/19 10:00 RDW 15.1 % (11.6-15.6) 04/17/19 10:00 Plt Count 252 K/MM3 (134-434) 04/17/19 10:00 MPV 9.2 fl (7.5-11.1) 04/17/19 10:00 Sodium 142 mmol/L (136-145) 04/17/19 10:00 Potassium 3.3 mmol/L (3.5-5.1) L 04/17/19 10:00 Chloride 108 mmol/L (98-107) H 04/17/19 10:00 Carbon Dioxide 26 mmol/L (21-32) 04/17/19 10:00 Anion Gap 7 MMOL/L (8-16) L 04/17/19 10:00 BUN 17.5 mg/dL (7-18) 04/17/19 10:00 Creatinine 0.9 mg/dL (0.55-1.3) 04/17/19 10:00 Est GFR (CKD-EPI)AfAm 84.61 04/17/19 10:00 Est GFR (CKD-EPI)NonAf 73.00 04/17/19 10:00 Random Glucose 128 mg/dL (74-106) H 04/17/19 10:00 Calcium 9.1 mg/dL (8.5-10.1) 04/17/19 10:00 Total Bilirubin 0.3 mg/dL (0.2-1) 04/17/19 10:00 AST 25 U/L (15-37) 04/17/19 10:00 ALT 25 U/L (13-61) 04/17/19 10:00 Alkaline Phosphatase 116 U/L (45-117) 04/17/19 10:00 Total Protein 7.6 g/dl (6.4-8.2) 04/17/19 10:00 Albumin 3.7 g/dl (3.4-5.0) 04/17/19 10:00 POC Urine HCG, Qual Negative 04/17/19 09:23 RPR Titer Nonreactive (NONREACTIVE) 04/17/19 10:00 lab noted low K+ K+ supplement Assessment: 04/19/19 10:37 alcohol withdrawal Plan: librium regimen
[2019-04-19] MEDS: BACITRACIN 15 GM TUBE TOPICAL OINTMENT TP SCH (10:36)
[2019-04-19] MEDS: BICTEGRAV/EMTRICIT/TENOFOV (BIKTARVY) 50-200-25 MG TABLET PO SCH (10:37)
[2019-04-19] MEDS: ASPIRIN COATED 81 MG TABLET.EC PO SCH (10:37)
[2019-04-19] MEDS: PANTOPRAZOLE 20 MG TABLET (FP) PO SCH (10:37)
[2019-04-19] MEDS: PRENATAL VITAMINS W/ FOLIC ACID TABLET (FP) PO SCH (10:38)
[2019-04-19] MEDS: HYDROCHLOROTHIAZIDE 25 MG TABLET (FP) PO SCH (10:38)
[2019-04-19] MEDS: SERTRALINE HCL 50 MG TABLET (FP) PO SCH (10:38)
[2019-04-19] MEDS: amLODIPine BESYLATE 10 MG TABLET (FP) PO SCH (10:38)
[2019-04-19] MEDS: TOLNAFTATE 1% CREAM 15 GM TUBE TP SCH ×2 (10:41→23:07)
[2019-04-19] MEDS: BUDESONIDE/FORMETEROL FUMARATE 160/4.5 mcg INHALER IH SCH ×2 (10:42→23:06)
[2019-04-19] MEDS: FLUTICASONE PROP 0.05% 16 GM NASAL SPRAY NS SCH ×2 (10:43→23:06)
[2019-04-19] MEDS: POTASSIUM CHLORIDE ORAL LIQUID 20 MEQ/15 ML PO SCH ×2 (12:34→12:49)
[2019-04-19] MEDS: VARENICLINE TARTRATE 0.5 MG TAB PO SCH ×2 (12:40→23:06)
[2019-04-19] MEDS: POTASSIUM CHLORIDE TABS 20 MEQ TABLET.ER (FP) PO SCH ×2 (14:59→22:25)
[2019-04-19] MEDS: QUEtiapine FUMARATE 200 MG TABLET PO SCH (22:25)
[2019-04-19] MEDS: THIAMINE HCL 100 MG TABLET (FP) PO SCH (22:25)
[2019-04-19] MEDS: ATORVASTATIN CA 20 MG TABLET (FP) PO SCH (22:25)
[2019-04-20] MEDS ORDERED: chlordiazePOXIDE HCL 10 MG CAPSULE PO PRN
[2019-04-20] MEDS: chlordiazePOXIDE HCL 10 MG CAPSULE PO SCH ×4 (05:39→22:14)
[2019-04-20] MEDS: amLODIPine BESYLATE 10 MG TABLET (FP) PO SCH (10:05)
[2019-04-20] MEDS: PANTOPRAZOLE 20 MG TABLET (FP) PO SCH (10:05)
[2019-04-20] MEDS: ASPIRIN COATED 81 MG TABLET.EC PO SCH (10:05)
[2019-04-20] MEDS: HYDROCHLOROTHIAZIDE 25 MG TABLET (FP) PO SCH (10:05)
[2019-04-20] MEDS: POTASSIUM CHLORIDE TABS 20 MEQ TABLET.ER (FP) PO SCH ×2 (10:05→22:14)
[2019-04-20] MEDS: SERTRALINE HCL 50 MG TABLET (FP) PO SCH (10:06)
[2019-04-20] MEDS: PRENATAL VITAMINS W/ FOLIC ACID TABLET (FP) PO SCH (10:06)
[2019-04-20] MEDS: BACITRACIN 15 GM TUBE TOPICAL OINTMENT TP SCH (10:06)
[2019-04-20] MEDS: VARENICLINE TARTRATE 0.5 MG TAB PO SCH ×2 (10:06→22:15)
[2019-04-20] MEDS: BICTEGRAV/EMTRICIT/TENOFOV (BIKTARVY) 50-200-25 MG TABLET PO SCH (10:06)
[2019-04-20] MEDS: FLUTICASONE PROP 0.05% 16 GM NASAL SPRAY NS SCH ×2 (10:07→22:41)
[2019-04-20] MEDS: BUDESONIDE/FORMETEROL FUMARATE 160/4.5 mcg INHALER IH SCH ×2 (10:07→22:18)
[2019-04-20] MEDS: ALBUTEROL SO4 8 GM HFA INHALER IH PRN ×2 (10:07→15:05)
[2019-04-20] MEDS: TOLNAFTATE 1% CREAM 15 GM TUBE TP SCH ×2 (10:07→22:18)
--- NOTE | 2019-04-20 12:06 | PN ---
[facility] CIWA - CIWA Score Nausea/Vomitin-No Nausea/No Vomiting Muscle Tremors: 2 Anxiety: 2 Agitation: 2 Paroxysmal Sweats: 1-Minimal Palms Moist Orientation: 0-Oriented Tacttile Disturbances: 0-None Auditory Disturbances: 0-None Visual Disturbances: 0-None Headache: 0-None Present CIWA-Ar Total Score: 7 [facility] Progress Note (SOAP) Subjective: 53 years old female admitted on 04/17/19 for alcohol withdrawal sx management treating with librium detox regimen feeling ok today slept through the night ambulating from bed to bathroom steady gait Objective: 04/20/19 12:04 Vital Signs Temperature 97.9 F 04/20/19 09:24 Pulse Rate 82 04/20/19 09:24 Respiratory Rate 18 04/20/19 09:24 Blood Pressure 126/81 04/20/19 09:24 O2 Sat by Pulse Oximetry (%) Laboratory Last Values WBC 3.4 K/mm3 (4.0-10.0) L 04/17/19 10:00 RBC 4.60 M/mm3 (3.60-5.2) 04/17/19 10:00 Hgb 12.9 GM/dL (10.7-15.3) 04/17/19 10:00 Hct 38.9 % (32.4-45.2) 04/17/19 10:00 MCV 84.6 fl (80-96) 04/17/19 10:00 MCH 28.1 pg (25.7-33.7) 04/17/19 10:00 MCHC 33.2 g/dl (32.0-36.0) 04/17/19 10:00 RDW 15.1 % (11.6-15.6) 04/17/19 10:00 Plt Count 252 K/MM3 (134-434) 04/17/19 10:00 MPV 9.2 fl (7.5-11.1) 04/17/19 10:00 Sodium 142 mmol/L (136-145) 04/17/19 10:00 Potassium 3.3 mmol/L (3.5-5.1) L 04/17/19 10:00 Chloride 108 mmol/L (98-107) H 04/17/19 10:00 Carbon Dioxide 26 mmol/L (21-32) 04/17/19 10:00 Anion Gap 7 MMOL/L (8-16) L 04/17/19 10:00 BUN 17.5 mg/dL (7-18) 04/17/19 10:00 Creatinine 0.9 mg/dL (0.55-1.3) 04/17/19 10:00 Est GFR (CKD-EPI)AfAm 84.61 04/17/19 10:00 Est GFR (CKD-EPI)NonAf 73.00 04/17/19 10:00 Random Glucose 128 mg/dL (74-106) H 04/17/19 10:00 Calcium 9.1 mg/dL (8.5-10.1) 04/17/19 10:00 Total Bilirubin 0.3 mg/dL (0.2-1) 04/17/19 10:00 AST 25 U/L (15-37) 04/17/19 10:00 ALT 25 U/L (13-61) 04/17/19 10:00 Alkaline Phosphatase 116 U/L (45-117) 04/17/19 10:00 Total Protein 7.6 g/dl (6.4-8.2) 04/17/19 10:00 Albumin 3.7 g/dl (3.4-5.0) 04/17/19 10:00 POC Urine HCG, Qual Negative 04/17/19 09:23 RPR Titer Nonreactive (NONREACTIVE) 04/17/19 10:00 lab noted 04/20/19 12:06 K+ supplement Assessment: 04/20/19 12:06 alcohol withdrawal Plan: libirum regimen
[2019-04-20] MEDS: NICOTINE POLACRILEX 2 MG GUM BUC PRN ×3 (13:16→22:18)
[2019-04-20] MEDS: THIAMINE HCL 100 MG TABLET (FP) PO SCH (22:14)
[2019-04-20] MEDS: QUEtiapine FUMARATE 200 MG TABLET PO SCH (22:15)
[2019-04-20] MEDS: ATORVASTATIN CA 20 MG TABLET (FP) PO SCH (22:15)
[2019-04-21] MEDS ORDERED: chlordiazePOXIDE HCL 10 MG CAPSULE PO SCH (05:00)
[2019-04-21] MEDS: ALBUTEROL SO4 8 GM HFA INHALER IH PRN (08:20)
[2019-04-21] MEDS: NICOTINE POLACRILEX 2 MG GUM BUC PRN (09:36)
[2019-04-21] MEDS: TOLNAFTATE 1% CREAM 15 GM TUBE TP SCH (10:02)
[2019-04-21] MEDS: BUDESONIDE/FORMETEROL FUMARATE 160/4.5 mcg INHALER IH SCH (10:02)
[2019-04-21] MEDS: BACITRACIN 15 GM TUBE TOPICAL OINTMENT TP SCH (10:02)
[2019-04-21] MEDS: VARENICLINE TARTRATE 0.5 MG TAB PO SCH (10:03)
[2019-04-21] MEDS: SERTRALINE HCL 50 MG TABLET (FP) PO SCH (10:03)
[2019-04-21] MEDS: BICTEGRAV/EMTRICIT/TENOFOV (BIKTARVY) 50-200-25 MG TABLET PO SCH (10:03)
[2019-04-21] MEDS: amLODIPine BESYLATE 10 MG TABLET (FP) PO SCH (10:03)
[2019-04-21] MEDS: ASPIRIN COATED 81 MG TABLET.EC PO SCH (10:04)
[2019-04-21] MEDS: FLUTICASONE PROP 0.05% 16 GM NASAL SPRAY NS SCH (10:04)
[2019-04-21] MEDS: HYDROCHLOROTHIAZIDE 25 MG TABLET (FP) PO SCH (10:04)
[2019-04-21] MEDS: PRENATAL VITAMINS W/ FOLIC ACID TABLET (FP) PO SCH (10:04)
[2019-04-21] MEDS: PANTOPRAZOLE 20 MG TABLET (FP) PO SCH (10:04)
--- NOTE | 2019-04-21 11:47 | PN ---
[facility] CIWA - CIWA Score Nausea/Vomitin-No Nausea/No Vomiting Muscle Tremors: 1-None Visible, but [place] Anxiety: 1-Mildly Anxious Agitation: 1-Slight > Activity Paroxysmal Sweats: 1-Minimal Palms Moist Orientation: 0-Oriented Tacttile Disturbances: 0-None Auditory Disturbances: 0-None Visual Disturbances: 0-None Headache: 0-None Present CIWA-Ar Total Score: 4 [facility] Progress Note (SOAP) Subjective: 53 years old female admitted on 04/17/19 for alcohol withdrawal sx management treating with librium detox regimen feeling better today less tremor slept through the night Objective: 04/21/19 11:46 Vital Signs Temperature 98.6 F 04/21/19 09:12 Pulse Rate 75 04/21/19 09:12 Respiratory Rate 18 04/21/19 09:12 Blood Pressure 135/97 04/21/19 09:12 O2 Sat by Pulse Oximetry (%) Laboratory Last Values WBC 3.4 K/mm3 (4.0-10.0) L 04/17/19 10:00 RBC 4.60 M/mm3 (3.60-5.2) 04/17/19 10:00 Hgb 12.9 GM/dL (10.7-15.3) 04/17/19 10:00 Hct 38.9 % (32.4-45.2) 04/17/19 10:00 MCV 84.6 fl (80-96) 04/17/19 10:00 MCH 28.1 pg (25.7-33.7) 04/17/19 10:00 MCHC 33.2 g/dl (32.0-36.0) 04/17/19 10:00 RDW 15.1 % (11.6-15.6) 04/17/19 10:00 Plt Count 252 K/MM3 (134-434) 04/17/19 10:00 MPV 9.2 fl (7.5-11.1) 04/17/19 10:00 Sodium 142 mmol/L (136-145) 04/17/19 10:00 Potassium 3.3 mmol/L (3.5-5.1) L 04/17/19 10:00 Chloride 108 mmol/L (98-107) H 04/17/19 10:00 Carbon Dioxide 26 mmol/L (21-32) 04/17/19 10:00 Anion Gap 7 MMOL/L (8-16) L 04/17/19 10:00 BUN 17.5 mg/dL (7-18) 04/17/19 10:00 Creatinine 0.9 mg/dL (0.55-1.3) 04/17/19 10:00 Est GFR (CKD-EPI)AfAm 84.61 04/17/19 10:00 Est GFR (CKD-EPI)NonAf 73.00 04/17/19 10:00 Random Glucose 128 mg/dL (74-106) H 04/17/19 10:00 Calcium 9.1 mg/dL (8.5-10.1) 04/17/19 10:00 Total Bilirubin 0.3 mg/dL (0.2-1) 04/17/19 10:00 AST 25 U/L (15-37) 04/17/19 10:00 ALT 25 U/L (13-61) 04/17/19 10:00 Alkaline Phosphatase 116 U/L (45-117) 04/17/19 10:00 Total Protein 7.6 g/dl (6.4-8.2) 04/17/19 10:00 Albumin 3.7 g/dl (3.4-5.0) 04/17/19 10:00 POC Urine HCG, Qual Negative 04/17/19 09:23 RPR Titer Nonreactive (NONREACTIVE) 04/17/19 10:00 lab noted patient agrees to bringing in lab report to [facility] for follow up Assessment: 04/21/19 11:47 alcohol withdrawal Plan: librium regimen
[2019-04-21 13:10] VITALS: BP 139/92; PULSE 72; TEMP 98.2
--- NOTE | 2019-04-21 14:38 | DS ---
[facility] Detox Discharge Summary Admission Date: 04/17/19 Discharge Date: 04/21/19 - History Present History: Alcohol Dependence Additional Comments: 53 years old female admitted on for alcohol withdrawal sx management treated with librium detox regimen patient tolerated well alert oriented x 3 patient prefers to begin recovery process today that an opportunity for [facility]hab case discussed with the nurse routine discharge is appropriated patient seen by psychiatrist resume seroquel 200mg and zoloft 100mg cardiac s1s2 regular rate rhythm ekg indicates 1st degree av block with possible left atrial enlargement and old septal infarction patient is asymptomatic denies chest pain no shortness of breath denies dizziness respiratory clear lungs bilaterally on auscultation skin warm and dry Pertinent Past History: patient is routine discharged today to [facility] as one day early than estimated discharge date - Physical Exam Results Vital Signs: Vital Signs Temperature 98.2 F 04/21/19 13:09 Pulse Rate 72 04/21/19 13:09 Respiratory Rate 18 04/21/19 13:09 Blood Pressure 139/92 04/21/19 13:09 O2 Sat by Pulse Oximetry (%) Pertinent Admission Physical Exam Findings: alcohol withdrawal Laboratory Last Values WBC 3.4 K/mm3 (4.0-10.0) L 04/17/19 10:00 RBC 4.60 M/mm3 (3.60-5.2) 04/17/19 10:00 Hgb 12.9 GM/dL (10.7-15.3) 04/17/19 10:00 Hct 38.9 % (32.4-45.2) 04/17/19 10:00 MCV 84.6 fl (80-96) 04/17/19 10:00 MCH 28.1 pg (25.7-33.7) 04/17/19 10:00 MCHC 33.2 g/dl (32.0-36.0) 04/17/19 10:00 RDW 15.1 % (11.6-15.6) 04/17/19 10:00 Plt Count 252 K/MM3 (134-434) 04/17/19 10:00 MPV 9.2 fl (7.5-11.1) 04/17/19 10:00 Sodium 142 mmol/L (136-145) 04/17/19 10:00 Potassium 3.3 mmol/L (3.5-5.1) L 04/17/19 10:00 Chloride 108 mmol/L (98-107) H 04/17/19 10:00 Carbon Dioxide 26 mmol/L (21-32) 04/17/19 10:00 Anion Gap 7 MMOL/L (8-16) L 04/17/19 10:00 BUN 17.5 mg/dL (7-18) 04/17/19 10:00 Creatinine 0.9 mg/dL (0.55-1.3) 04/17/19 10:00 Est GFR (CKD-EPI)AfAm 84.61 04/17/19 10:00 Est GFR (CKD-EPI)NonAf 73.00 04/17/19 10:00 Random Glucose 128 mg/dL (74-106) H 04/17/19 10:00 Calcium 9.1 mg/dL (8.5-10.1) 04/17/19 10:00 Total Bilirubin 0.3 mg/dL (0.2-1) 04/17/19 10:00 AST 25 U/L (15-37) 04/17/19 10:00 ALT 25 U/L (13-61) 04/17/19 10:00 Alkaline Phosphatase 116 U/L (45-117) 04/17/19 10:00 Total Protein 7.6 g/dl (6.4-8.2) 04/17/19 10:00 Albumin 3.7 g/dl (3.4-5.0) 04/17/19 10:00 POC Urine HCG, Qual Negative 04/17/19 09:23 RPR Titer Nonreactive (NONREACTIVE) 04/17/19 10:00 lab noted K+ 3.3 received four doses of potassium chloride 20meq po patient will be monitored while in [facility] - Treatment Hospital Course: Detox Protocol Followed, Detoxed Safely, Responded well, Discharged Condition Good, Rehab Referral Accepted Patient has Accepted a Rehab Referral to: [facility] - Medication Discharge Medications: Ambulatory Orders Metoprolol Succinate [Toprol XL -] 50 mg PO DAILY #14 tab.sr.24h 04/26/18 Aspirin Coated [Ecotrin -] 81 mg PO DAILY #30 tablet.ec 10/27/18 Bictegrav/Emtricit/Tenofov Ala [Biktarvy 50-200-25 mg Tablet] 1 each PO DAILY # 30 tablet 10/27/18 Fluticasone Prop 0.05% Nasal [Flonase -] 1 - 2 spray NS BID #1 spray 10/27/18 Mometasone/Formoterol [Dulera 200 Mcg/5 Mcg Inhaler] 2 inh IH BID #1 hfa.aer.ad 10/27/18 Quetiapine Fumarate [Seroquel -] 300 mg PO HS #30 tablet 01/18/19 Sertraline HCl [Zoloft] 100 mg PO DAILY #30 tablet 01/18/19 Pantoprazole Sodium [Protonix -] 20 mg PO DAILY 04/17/19 Tiotropium [place] [Spiriva] 1 inh IH DAILY 04/17/19 Varenicline Tartrate [Chantix -] 0.5 mg PO BID 04/17/19 Quetiapine Fumarate [Seroquel -] 200 mg PO HS #30 tab 04/20/19 Sertraline HCl [Zoloft] 100 mg PO DAILY #30 tablet 04/20/19 Albuterol Sulfate Inhaler - [Ventolin HFA Inhaler -] 2 inh PO Q4H PRN #1 inh 12/01 Amlodipine Besylate [Norvasc -] 10 mg PO DAILY #30 tablet 04/21/19 Atorvastatin Ca [Lipitor] 20 mg PO HS #30 tablet 04/21/19 Budesonide/Formeterol Fumarate [SYMBICORT 160/4.5mcg -] 2 puff IH BID #1 inhaler 04/21/19 Hydrochlorothiazide [Hctz -] 25 mg PO DAILY #30 tablet 04/21/19 Metoprolol Succinate [Toprol XL -] 50 mg PO BID #60 tab.sr.24h 04/21/19 - Diagnosis (1) Alcohol dependence with uncomplicated withdrawal Status: Acute (2) Asthma Status: Chronic Qualifiers: Asthma severity: mild Asthma persistence: intermittent Asthma complication type: uncomplicated Qualified Code(s): J45.20 - Mild intermittent asthma, uncomplicated (3) COPD (chronic obstructive pulmonary disease) Status: Chronic Qualifiers: COPD type: emphysema Emphysema type: other Qualified Code(s): J43.8 - Other emphysema (4) Essential hypertension Status: Chronic (5) GERD (gastroesophageal reflux disease) Status: Chronic Qualifiers: Esophagitis presence: without esophagitis Qualified Code(s): K21.9 - Gastro -esophageal reflux disease without esophagitis (6) HIV (human immunodeficiency virus infection) Status: Chronic Qualifiers: HIV symptom status: asymptomatic Qualified Code(s): Z21 - Asymptomatic human immunodeficiency virus [HIV] infection status (7) History of syphilis Status: Chronic (8) Nicotine dependence Status: Acute Qualifiers: Nicotine product type: cigarettes Substance use status: in withdrawal Qualified Code(s): F17.213 - Nicotine dependence, cigarettes, with withdrawal (9) Substance induced mood disorder Status: Suspected - AMA Did Patient Leave Against Medical Advice: No CIWA Score - CIWA Score Nausea/Vomitin-No Nausea/No Vomiting Muscle Tremors: 1-None Visible, but [place] Anxiety: 0-No Anxiety, at Ease Agitation: 0-Normal Activity Paroxysmal Sweats: No Perspiration Orientation: 0-Oriented Tacttile Disturbances: 0-None Auditory Disturbances: 0-None Visual Disturbances: 0-None Headache: 0-None Present CIWA-Ar Total Score: 1
[2019-04-22] MEDS ORDERED: chlordiazePOXIDE HCL 10 MG CAPSULE PO ONE (05:00)
== END 2019-04-21 13:17 | disposition other institution (70) | DRG 774 ==
LOC: YASAS 08:32 → Y3N 10:14
PROVIDERS: ADMIT Allergy & Immunology; ATTEND Allergy & Immunology
PROC: HZ2ZZZZ Detoxification Services for Substance Abuse Treatment (ICD-10-PCS; principal; 2019-04-17)
DX: F10.230 Alcohol dependence with withdrawal, uncomplicated (principal); F14.20 Cocaine dependence, uncomplicated; F17.210 Nicotine dependence, cigarettes, uncomplicated; F19.24 Other psychoactive substance dependence with psychoactive substance-induced mood disorder; F31.9 Bipolar disorder, unspecified; Z21 Asymptomatic human immunodeficiency virus [HIV] infection status; I10 Essential (primary) hypertension; J45.20 Mild intermittent asthma, uncomplicated; J43.8 Other emphysema; G43.909 Migraine, unspecified, not intractable, without status migrainosus; E87.6 Hypokalemia; B35.3 Tinea pedis; M16.12 Unilateral primary osteoarthritis, left hip; M54.5 Low back pain; G89.29 Other chronic pain; Z86.19 Personal history of other infectious and parasitic diseases; Z88.5 Allergy status to narcotic agent; Z88.1 Allergy status to other antibiotic agents; Z91.018 Allergy to other foods; Z91.5 Personal history of self-harm
CPT/HCPCS: 36415; 80053; 81025; 85027; 86593; 94640

== ENCOUNTER 2019-06-03 09:15 | Inpatient (IN) | payer OTHER ==
--- NOTE | 2019-06-03 09:47 | BHS.RME ---
Substance Use & Tx History - Substance Use History Alcohol Substance amount: 2 pints Vodka, beer 24 ounce x 6 pack Frequency of use: Daily Substance route: Oral Date of Last Use: 06/02/19 Cocaine (Crack) Substance amount: $600 per day Frequency of use: Daily Substance route: Smoking Date of Last Use: 06/02/19 Physical/Psych/Mental Status - Behavior Eye Contact: Normal - Cooperativeness Cooperativeness: Cooperative - Thinking Thought Processes: Tight - Physical Health Problems Is patient presently having any pain?: Yes (left upper tooth ache, pending extraction) Does patient presently have any injuries (include location): No Does patient currently have a fever: No CIWA Nausea/Vomitin-No Nausea/No Vomiting Muscle Tremors: None Anxiety: 2 Agitation: 2 Paroxysmal Sweats: 3 Orientation: 0-Oriented Tacttile Disturbances: 0-None Auditory Disturbances: 0-None Visual Disturbances: 0-None Headache: 3-Moderate CIWA-Ar Total Score: 10
[2019-06-03 10:07] VITALS: BMI 29.7
--- NOTE | 2019-06-03 10:30 | HP ---
CIWA Score Nausea/Vomitin-No Nausea/No Vomiting Muscle Tremors: None Anxiety: 2 Agitation: 2 Paroxysmal Sweats: 3 Orientation: 0-Oriented Tacttile Disturbances: 0-None Auditory Disturbances: 0-None Visual Disturbances: 0-None Headache: 3-Moderate CIWA-Ar Total Score: 10 - Admission Criteria OASAS Guidelines: Admission for Medically Managed Detox: Requires at least one of the followin. CIWA greater than 12 2. Seizures within the past 24 hours 3. Delirium tremens within the past 24 hours 4. Hallucinations within the past 24 hours 5. Acute intervention needed for co occurring medical disorder 6. Acute intervention needed for co occurring psychiatric disorder 7. Severe withdrawal that cannot be handled at a lower level of care (continued vomiting, continued diarrhea, abnormal vital signs) requiring intravenous medication and/or fluids 8. Admitting History and Physical - Admission Chief Complaint: Ms. Nathan is a 54 yo woman who presents to [facility] requesting admission to detox for alcohol and cocaine use. History of Present Illness: Ms. Nathan is a 54 yo woman who presents to [facility] requesting admission to detox for alcohol and cocaine use. She was last here in April for a four day detox. She was then in [facility] for rehab. She relapsed yesterday when celebrating her birthday. PMH: HTN, HIV on Biktarvy/last dose yesterday, COPD, Asthma, murmur, palpitations, Psych: depression on Zoloft and Seroquel SOC: lives in an [facility] Legal: going to drug court Substance use history Alcohol: 2 pints Vodka daily, 6 pack of 24 ounce beer daily, last drink today, first use age 14y. No black outs, no seizures Crack: $60. per day, last use today, first use age 18 y - Past Medical History [employer]: Yes: Migraine ("i used to be on Imitrex") Cardiovascular: Yes: HTN, Hyperlipdemia, Murmur Pulmonary: Yes: Asthma, COPD Gastrointestinal: Yes: GERD Renal/: Yes: UTI (in the past) ...LMP: 08/12/13 ...: Yes Infectious Disease: Yes: HIV, STD's (Hx syphilis/Gonorrhea at 15) Psych: Yes: Addictions, Depression Musculoskeletal: Yes: Chronic low back pain, Osteoarthritis (hip) ENT: Yes: Allergic Rhinitis (on flonase), Other Dermatology: Yes: Other (tinea pedis) - Smoking History Smoking history: Current every day smoker Have you smoked in the past 12 months: Yes Aproximately how many cigarettes per day: 20 - Alcohol/Substance Use Hx Alcohol Use: Yes Number of Drinks Daily: 3 (3 cobra/1-2 pt vodka) History of Substance Use: reports: Cocaine Date of Last Use: 04/16/19 (After d/c from [facility] today) - Social History ADL: Independent History of Recent Travel: No Admission [facility] Allergies/Adverse Reactions: Allergies Allergy/AdvReac Type Severity Reaction Status Date / Time lisinopril Allergy Severe Swelling Verified 06/03/19 09:54 turkey Allergy Severe Rash Verified 06/03/19 09:54 Fish Containing Products Allergy Rash Verified 06/03/19 09:54 erythromycin base AdvReac Severe Rash Verified 06/03/19 09:54 sulfamethoxazole AdvReac Severe Rash Verified 06/03/19 09:54 [From Bactrim] trimethoprim [From Bactrim] AdvReac Severe Rash Verified 06/03/19 09:54 Exam Limitations: No Limitations - Ebola screening Have you traveled outside of the country in the last 21 days: No Have you had contact with anyone from an Ebola affected area: No Have you been sick,other than usual withdrawal symptoms: No Do you have a fever: No - Review of Systems Constitutional: No Symptoms Reported EENT: reports: Other (left upper tooth pain, pending extraction) Respiratory: reports: No Symptoms reported Cardiac: reports: No Symptoms Reported GI: reports: No Symptoms Reported : reports: Other (vaginal bleeding yesterday, none today) Musculoskeletal: reports: No Symptoms Reported Integumentary: reports: No Symptoms Reported Neuro: reports: No Symptoms reported Endocrine: reports: No Symptoms Reported Hematology: reports: No Symptoms Reported Psychiatric: reports: Agitated, Anxious Patient History - Patient Medical History Hx Anemia: No Hx Asthma: Yes Hx Chronic Obstructive Pulmonary Disease (COPD): Yes Hx Cancer: No Hx Cardiac Disorders: Yes (Hx of heart murmur) Hx Congestive Heart Failure: No Hx Hypertension: Yes Hx Hypercholesterolemia: Yes (on med) Hx Pacemaker: No HX Cerebrovascular Accident: No Hx Seizures: No Hx Dementia: No Hx Diabetes: No Hx Gastrointestinal Disorders: Yes (acid reflux) Hx Liver Disease: No Hx Genitourinary Disorders: No Hx Sexually Transmitted Disorders: Yes (Pt has a hx of syphillis and gonorrhea.) Hx Renal Disease (ESRD): No Hx Thyroid Disease: No Hx Human Immunodeficiency Virus (HIV): Yes (ON BICTARVY ,CD4-= 206 02/27/19) Hx Hepatitis C: No Hx Depression: Yes Hx Suicide Attempt: No Hx Bipolar Disorder: Yes (on meds) Hx Schizophrenia: No - Patient Surgical History Past Surgical History: Yes Hx Neurologic Surgery: No Hx Cataract Extraction: No Hx Cardiac Surgery: No Hx Lung Surgery: No Hx Breast Surgery: No Hx Breast Biopsy: No Hx Abdominal Surgery: No Hx Appendectomy: No Hx Cholecystectomy: No Hx Genitourinary Surgery: No Hx Section: No Hx Orthopedic Surgery: No Hx Hysterectomy: No Other Surgical History: ectopic at age 35 Anesthesia Reaction: No - PPD History Previous Implant?: Yes Documented Results: Negative w/proof Implanted On Prior [facility] Admission?: Yes Date: 03/01/19 Results: 0 mm - Reproductive History Last Menstrual Period: 08/12/13 Patient : Yes - Smoking Cessation Smoking history: Current every day smoker Have you smoked in the past 12 months: Yes Aproximately how many cigarettes per day: 20 Cigars Per Day: 0 Hx Chewing Tobacco Use: No Initiated information on smoking cessation: Yes 'Breaking Loose' booklet given: 06/03/19 - Substances abused Alcohol Substance route: Oral Frequency: Daily Amount used: 2 pints vodka/6pk beer Age of first use: 18 Date of last use: 06/02/19 Crack Substance route: Smoking Frequency: Daily Amount used: $100 and up Age of first use: 18 Date of last use: 06/02/19 Admission Physical Exam BHS - Vital Signs Vital Signs: Vital Signs - 24 hr 06/03/19 10:00 Temperature 97.9 F Pulse Rate 93 H Respiratory 20 Rate Blood Pressure 159/118 H - Physical General Appearance: Yes: Within Normal Limits HEENTM: Yes: Other (dental decay, multiple teeth) Respiratory: Yes: Lungs Clear, Normal Breath Sounds Neck: Yes: Within Normal Limits Cardiology: Yes: S1, S2, Tachycardia Abdominal: Yes: Normal Bowel Sounds, Non Tender, Soft, Protuberent Genitourinary: Yes: Other (deferred) Back: Yes: Normal Inspection Extremities: Yes: Within Normal Limits Neurological: Yes: Alert, Normal Response Integumentary: Yes: Within Normal Limits - Diagnostic (1) Cocaine abuse Current Visit: Yes Status: Acute (2) Alcohol dependence with uncomplicated withdrawal Current Visit: Yes Status: Acute (3) HIV (human immunodeficiency virus infection) Current Visit: No Status: Chronic Qualifiers: HIV symptom status: asymptomatic Qualified Code(s): Z21 - Asymptomatic human immunodeficiency virus [HIV] infection status (4) History of depression Current Visit: Yes Status: Chronic (5) Hypercholesterolemia Current Visit: No Status: Chronic Cleared for Admission S - Detox or Rehab [facility] Level of Care: Medically Managed Detox Regimen/Protocol: Librium Breathalyzer - Breathalyzer Breathalyzer: 0 Urine Drug Screen - Test Device Lot number: [id number] Expiration date: 03/13/21 - Control Is test valid?: Yes - Results Drug screen NEGATIVE: No Urine drug screen results: [facility]RISTOPHE-Cocaine Inpatient Rehab Admission - Rehab Decision to Admit Inpatient rehab admission?: No
[2019-06-03] MEDS ORDERED: ALBUTEROL SO4 HFA INHALER IH PRN (10:39)
[2019-06-03] MEDS ORDERED: MENTHOL/PHENOL 1 EACH UD MM PRN (10:42)
[2019-06-03] MEDS ORDERED: NICOTINE POLACRILEX 4 MG GUM BUC PRN (10:42)
[2019-06-03] MEDS ORDERED: MAG HYDROX/AL HYDROX/SIMETH 30 ML UNIT-DOSE CUP PO PRN (10:42)
[2019-06-03] MEDS ORDERED: MAGNESIUM CITRATE 300 ML BOTTLE PO PRN (10:42)
[2019-06-03] MEDS ORDERED: chlordiazePOXIDE HCL 25 MG CAPSULE PO PRN (10:42)
[2019-06-03] MEDS ORDERED: BISMUTH SUBSALICYLATE 262 MG/15 ML BTL PO PRN (10:42)
[2019-06-03] MEDS ORDERED: ACETAMINOPHEN 325 MG TABLET (FP) PO PRN (10:42)
[2019-06-03] MEDS ORDERED: MAGNESIUM HYDROX 2400MG/30ML ORAL SUSPENSION 30 ML CUP PO PRN (10:42)
[2019-06-03] MEDS: BICTEGRAV/EMTRICIT/TENOFOV (BIKTARVY) 50-200-25 MG TABLET PO SCH (11:58)
[2019-06-03] MEDS: FLUTICASONE PROP 0.05% 16 GM NASAL SPRAY NS SCH ×2 (11:58→22:23)
[2019-06-03] MEDS: ASPIRIN COATED 81 MG TABLET.EC PO SCH (11:59)
[2019-06-03] MEDS: HYDROCHLOROTHIAZIDE 25 MG TABLET (FP) PO SCH (11:59)
[2019-06-03] MEDS: PANTOPRAZOLE 20 MG TABLET PO SCH (11:59)
[2019-06-03] MEDS: chlordiazePOXIDE HCL 25 MG CAPSULE PO SCH ×3 (11:59→22:20)
[2019-06-03] MEDS: amLODIPine BESYLATE 10 MG TABLET (FP) PO SCH (11:59)
[2019-06-03] MEDS: IBUPROFEN 400 MG TABLET (FP) PO PRN ×2 (12:02→18:02)
[2019-06-03] MEDS: TIOTROPIUM BROMIDE 2.5 MCG (SPIRIVA) RESPIMAT INHALER IH SCH (12:05)
--- NOTE | 2019-06-03 14:32 | CONSULT ---
[facility] Psychiatric Consult - Data Date of interview: 06/03/19 Admission source: [facility] Identifying data: Patient is a 54 year old single female, mother of two, unemployed, residing in an [place], and is not currently receiving SSI. This is one of multiple admissions for patient. Patient admitted to for alcohol and cocaine dependence. Substance Abuse History: Smoking Cessation. Smoking history: Current every day smoker. Have you smoked in the past 12 months: Yes. Aproximately how many cigarettes per day: 20. Cigars Per Day: 0. Hx Chewing Tobacco Use: No. Initiated information on smoking cessation: Yes. 'Breaking Loose' booklet given : 06/03/19. - Substances abused. Alcohol. Substance route: Oral. Frequency: Daily. Amount used: 2 pints vodka/6pk beer. Age of first use: 18. Date of last use: 06/02/19. Crack. Substance route: Smoking. Frequency: Daily. Amount used: $100 and up. Age of first use: 18. Date of last use: Medical History: Medical profile is remarkable for past treatment for syphilis, chlamydia/gonorrhea (adolescence), HIV infection since 2013 (on ART medications), hypertension, COPD, GERD, bronchial asthma and hypercholesterolemia. Noted past history of ectopic (age 30). Psychiatric History: Patient denies history of psychiatric hospitalizations and suicide attempt. Ms. Nathan reports past outpatient treatment at [facility] and reports being prescribed Zoloft 100mg + Seroquel 300mg. Diagnosis of MDD. She claims to receive her medications from her PCP and states that she has an appointment scheduled to see the psychiatrist at [facility] on . At present patient presents as lethagic and noted to fall asleep several times throughout assessment. Physical/Sexual Abuse/Trauma History: denies. Mental Status Exam - Mental Status Exam Alert and Oriented to: Time, Place, Person Cognitive Function: Good Patient Appearance: Well Groomed Mood: Withdrawn Affect: Mood Congruent Patient Behavior: Fatigued, Asleep (Patient fell asleep several times during interview. ) Speech Pattern: Delayed Voice Loudness: Mildly Soft/Quiet Thought Process: Goal Oriented Thought Disorder: Not Present Hallucinations: Denies Suicidal Ideation: Denies Homicidal Ideation: Denies Insight/Judgement: Poor Sleep: Poorly Appetite: Fair Muscle strength/Tone: Normal Gait/Station: Normal Psychiatric Findings - Problem List ([place] 1, 2,3) (1) Alcohol dependence with uncomplicated withdrawal Current Visit: Yes Status: Acute (2) Cocaine abuse Current Visit: Yes Status: Acute (3) Substance-induced sleep disorder Current Visit: Yes Status: Acute (4) History of depression Current Visit: Yes Status: Chronic (5) Substance induced mood disorder Current Visit: Yes Status: Suspected - Initial Treatment Plan Initial Treatment Plan: Psychoeducation provided. Detoxification in progress. Will order Zoloft 100mg + Seroquel 100mg (reduced dose as patient is displaying difficulty remaining awake throughout assessment). Benefits and side effects discussed. Verbal consent given.
[2019-06-03 15:02] LABS: HEMATOCRIT 37.5 % (32.4-45.2); HEMOGLOBIN 12.5 GM/dL (10.7-15.3); MCH 28.2 pg (25.7-33.7); MCHC 33.4 g/dl (32.0-36.0); MEAN CELL VOLUME 84.3 fl (80-96); MEAN PLT VOLUME 7.8 fl (7.5-11.1); PLATELET COUNT 282 K/MM3 (134-434); RBC 4.45 M/mm3 (3.60-5.2); RDW 15.8 % (11.6-15.6)
[2019-06-03 15:39] LABS: ALBUMIN 3.7 g/dl (3.4-5.0); BILIRUBIN,TOTAL 0.5 mg/dL (0.2-1); BLOOD UREA NITROGEN 18.9 mg/dL (7-18); CALCIUM 9.4 mg/dL (8.5-10.1); POTASSIUM 3.4 mmol/L (3.5-5.1); TOT PROT 8.3 g/dl (6.4-8.2)
[2019-06-03] MEDS ORDERED: POTASSIUM CHLORIDE TABS 20 MEQ TABLET.ER (FP) PO ONE (21:54)
--- NOTE | 2019-06-03 21:55 | PN ---
S Progress Note Note: called by nurse for abnormal labs Abnormal Lab Results 06/03/19 06/03/19 11:00 11:00 RDW 15.8 H Potassium 3.4 L Chloride 110 H Anion Gap 6 L BUN 18.9 H Alkaline Phosphatase 125 H Total Protein 8.3 H P ; one-time order KCL
[2019-06-03] MEDS: QUEtiapine FUMARATE 100 MG TABLET (FP) PO SCH (22:21)
[2019-06-03] MEDS: ATORVASTATIN CA 20 MG TABLET (FP) PO SCH (22:21)
[2019-06-03] MEDS: THIAMINE HCL 100 MG TABLET (FP) PO SCH (22:25)
[2019-06-04] MEDS: chlordiazePOXIDE HCL 25 MG CAPSULE PO SCH ×4 (05:55→22:04)
[2019-06-04] MEDS: IBUPROFEN 400 MG TABLET (FP) PO PRN ×2 (05:56→14:28)
[2019-06-04] MEDS: FLUTICASONE PROP 0.05% 16 GM NASAL SPRAY NS SCH ×2 (10:18→22:04)
[2019-06-04] MEDS: TIOTROPIUM BROMIDE 2.5 MCG (SPIRIVA) RESPIMAT INHALER IH SCH (10:18)
[2019-06-04] MEDS: SERTRALINE HCL 50 MG TABLET (FP) PO SCH (10:19)
[2019-06-04] MEDS: BICTEGRAV/EMTRICIT/TENOFOV (BIKTARVY) 50-200-25 MG TABLET PO SCH (10:19)
[2019-06-04] MEDS: PRENATAL VITAMINS W/ FOLIC ACID TABLET (FP) PO SCH (10:19)
[2019-06-04] MEDS: PANTOPRAZOLE 20 MG TABLET PO SCH (10:19)
[2019-06-04] MEDS: HYDROCHLOROTHIAZIDE 25 MG TABLET (FP) PO SCH (10:19)
[2019-06-04] MEDS: ASPIRIN COATED 81 MG TABLET.EC PO SCH (10:19)
[2019-06-04] MEDS: amLODIPine BESYLATE 10 MG TABLET (FP) PO SCH (10:19)
--- NOTE | 2019-06-04 10:20 | PN ---
S CIWA - CIWA Score Nausea/Vomitin-No Nausea/No Vomiting Muscle Tremors: 2 Anxiety: 0-No Anxiety, at Ease Agitation: 2 Paroxysmal Sweats: No Perspiration Orientation: 0-Oriented Tacttile Disturbances: 0-None Auditory Disturbances: 0-None Visual Disturbances: 0-None Headache: 0-None Present CIWA-Ar Total Score: 4 BHS Progress Note (SOAP) Subjective: Pt resting in bed after she was seen walking in the hallway, complains of feeling "angry", nonspecific Objective: 06/04/19 10:18 Laboratory Last Values WBC 4.0 K/mm3 (4.0-10.0) 06/03/19 11:00 RBC 4.45 M/mm3 (3.60-5.2) 06/03/19 11:00 Hgb 12.5 GM/dL (10.7-15.3) 06/03/19 11:00 Hct 37.5 % (32.4-45.2) 06/03/19 11:00 MCV 84.3 fl (80-96) 06/03/19 11:00 MCH 28.2 pg (25.7-33.7) 06/03/19 11:00 MCHC 33.4 g/dl (32.0-36.0) 06/03/19 11:00 RDW 15.8 % (11.6-15.6) H 06/03/19 11:00 Plt Count 282 K/MM3 (134-434) 06/03/19 11:00 MPV 7.8 fl (7.5-11.1) D 06/03/19 11:00 Sodium 143 mmol/L (136-145) 06/03/19 11:00 Potassium 3.4 mmol/L (3.5-5.1) L 06/03/19 11:00 Chloride 110 mmol/L (98-107) H 06/03/19 11:00 Carbon Dioxide 28 mmol/L (21-32) 06/03/19 11:00 Anion Gap 6 MMOL/L (8-16) L 06/03/19 11:00 BUN 18.9 mg/dL (7-18) H 06/03/19 11:00 Creatinine 1.0 mg/dL (0.55-1.3) 06/03/19 11:00 Est GFR (CKD-EPI)AfAm 73.97 06/03/19 11:00 Est GFR (CKD-EPI)NonAf 63.82 06/03/19 11:00 Random Glucose 106 mg/dL (74-106) 06/03/19 11:00 Calcium 9.4 mg/dL (8.5-10.1) 06/03/19 11:00 Total Bilirubin 0.5 mg/dL (0.2-1) 06/03/19 11:00 AST 23 U/L (15-37) 06/03/19 11:00 ALT 30 U/L (13-61) 06/03/19 11:00 Alkaline Phosphatase 125 U/L (45-117) H 06/03/19 11:00 Total Protein 8.3 g/dl (6.4-8.2) H 06/03/19 11:00 Albumin 3.7 g/dl (3.4-5.0) 06/03/19 11:00 Vital Signs Temperature 96.9 F L 06/04/19 08:32 Pulse Rate 74 06/04/19 08:32 Respiratory Rate 18 06/04/19 08:32 Blood Pressure 140/92 06/04/19 08:32 O2 Sat by Pulse Oximetry (%) PE Gnl: WDWN, in no distress Mental status: in bed, easily aroused, nl language Motor: moves all limbs symmetrically Coord: nl Assessment: 06/04/19 10:19 1. Alcohol use disorder 2. PMH: HTN, HIV, COPD, asthma, depression 3. low K last night, repleated with 20 mEq Plan: 1. continue Librium protocol 2. seen by Psychiatry, ordered Zoloft and Seroquel 3. continue home meds for HIV, HTN, COPD
[2019-06-04] MEDS: ATORVASTATIN CA 20 MG TABLET (FP) PO SCH (22:04)
[2019-06-04] MEDS: THIAMINE HCL 100 MG TABLET (FP) PO SCH (22:04)
[2019-06-04] MEDS: QUEtiapine FUMARATE 100 MG TABLET (FP) PO SCH (22:04)
[2019-06-04] MEDS: hydrOXYzine PAMOATE 25 MG CAPSULE (FP) PO PRN (22:05)
[2019-06-04] MEDS: METHOCARBAMOL 500 MG TABLET PO PRN (22:05)
[2019-06-04] MEDS: MELATONIN 5 MG TABLETS PO PRN (22:06)
[2019-06-05] MEDS: chlordiazePOXIDE HCL 25 MG CAPSULE PO SCH ×4 (05:51→22:06)
[2019-06-05] MEDS: IBUPROFEN 400 MG TABLET (FP) PO PRN ×2 (08:41→22:07)
--- NOTE | 2019-06-05 09:38 | PN ---
[facility] CIWA - CIWA Score Nausea/Vomitin-No Nausea/No Vomiting Muscle Tremors: None Anxiety: 3 Agitation: 0-Normal Activity Paroxysmal Sweats: 3 Orientation: 0-Oriented Tacttile Disturbances: 0-None Auditory Disturbances: 0-None Visual Disturbances: 0-None Headache: 1-Very Mild CIWA-Ar Total Score: 7 S Progress Note (SOAP) Subjective: c/o sweats, headache, anxiety, and lower back pain. Objective: 06/05/19 09:36 Vital Signs 06/05/19 06/05/19 06/05/19 03:30 07:16 08:33 Temperature 98.7 F 97.6 F Pulse Rate 74 91 H Respiratory 18 18 20 Rate Blood Pressure 147/97 150/106 H Laboratory Last Values WBC 4.0 K/mm3 (4.0-10.0) 06/03/19 11:00 RBC 4.45 M/mm3 (3.60-5.2) 06/03/19 11:00 Hgb 12.5 GM/dL (10.7-15.3) 06/03/19 11:00 Hct 37.5 % (32.4-45.2) 06/03/19 11:00 MCV 84.3 fl (80-96) 06/03/19 11:00 MCH 28.2 pg (25.7-33.7) 06/03/19 11:00 MCHC 33.4 g/dl (32.0-36.0) 06/03/19 11:00 RDW 15.8 % (11.6-15.6) H 06/03/19 11:00 Plt Count 282 K/MM3 (134-434) 06/03/19 11:00 MPV 7.8 fl (7.5-11.1) D 06/03/19 11:00 Sodium 143 mmol/L (136-145) 06/03/19 11:00 Potassium 3.6 mmol/L (3.5-5.1) 06/04/19 07:50 Chloride 110 mmol/L (98-107) H 06/03/19 11:00 Carbon Dioxide 28 mmol/L (21-32) 06/03/19 11:00 Anion Gap 6 MMOL/L (8-16) L 06/03/19 11:00 BUN 18.9 mg/dL (7-18) H 06/03/19 11:00 Creatinine 1.0 mg/dL (0.55-1.3) 06/03/19 11:00 Est GFR (CKD-EPI)AfAm 73.97 06/03/19 11:00 Est GFR (CKD-EPI)NonAf 63.82 06/03/19 11:00 Random Glucose 106 mg/dL (74-106) 06/03/19 11:00 Calcium 9.4 mg/dL (8.5-10.1) 06/03/19 11:00 Total Bilirubin 0.5 mg/dL (0.2-1) 06/03/19 11:00 AST 23 U/L (15-37) 06/03/19 11:00 ALT 30 U/L (13-61) 06/03/19 11:00 Alkaline Phosphatase 125 U/L (45-117) H 06/03/19 11:00 Total Protein 8.3 g/dl (6.4-8.2) H 06/03/19 11:00 Albumin 3.7 g/dl (3.4-5.0) 06/03/19 11:00 POC Urine HCG, Qual Negative 06/03/19 09:51 RPR Titer Nonreactive (NONREACTIVE) 06/03/19 11:00 Labs noted. Assessment: 06/05/19 09:36 AOX3, in no acute respiratory distress. Full ROM, ambulating in the unit. Withdrawal symptoms. Plan: continue detox.
[2019-06-05] MEDS: ASPIRIN COATED 81 MG TABLET.EC PO SCH (10:17)
[2019-06-05] MEDS: PANTOPRAZOLE 20 MG TABLET PO SCH (10:17)
[2019-06-05] MEDS: FLUTICASONE PROP 0.05% 16 GM NASAL SPRAY NS SCH ×2 (10:17→22:11)
[2019-06-05] MEDS: PRENATAL VITAMINS W/ FOLIC ACID TABLET (FP) PO SCH (10:18)
[2019-06-05] MEDS: HYDROCHLOROTHIAZIDE 25 MG TABLET (FP) PO SCH (10:18)
[2019-06-05] MEDS: amLODIPine BESYLATE 10 MG TABLET (FP) PO SCH (10:18)
[2019-06-05] MEDS: SERTRALINE HCL 50 MG TABLET (FP) PO SCH (10:18)
[2019-06-05] MEDS: METHOCARBAMOL 500 MG TABLET PO PRN (10:20)
[2019-06-05] MEDS: BICTEGRAV/EMTRICIT/TENOFOV (BIKTARVY) 50-200-25 MG TABLET PO SCH (10:21)
[2019-06-05] MEDS: TIOTROPIUM BROMIDE 2.5 MCG (SPIRIVA) RESPIMAT INHALER IH SCH (10:22)
[2019-06-05] MEDS: THIAMINE HCL 100 MG TABLET (FP) PO SCH (22:06)
[2019-06-05] MEDS: QUEtiapine FUMARATE 100 MG TABLET (FP) PO SCH (22:06)
[2019-06-05] MEDS: ATORVASTATIN CA 20 MG TABLET (FP) PO SCH (22:06)
[2019-06-05] MEDS: MELATONIN 5 MG TABLETS PO PRN (22:08)
[2019-06-05] MEDS: hydrOXYzine PAMOATE 25 MG CAPSULE (FP) PO PRN (22:09)
[2019-06-05] MEDS ORDERED: cloNIDine HCL 0.1 MG TABLET PO ONE (22:12)
[2019-06-06] MEDS ORDERED: chlordiazePOXIDE HCL 10 MG CAPSULE PO PRN
[2019-06-06] MEDS: chlordiazePOXIDE HCL 10 MG CAPSULE PO SCH ×4 (05:20→22:00)
[2019-06-06] MEDS: PRENATAL VITAMINS W/ FOLIC ACID TABLET (FP) PO SCH (10:10)
[2019-06-06] MEDS: FLUTICASONE PROP 0.05% 16 GM NASAL SPRAY NS SCH ×2 (10:10→22:00)
[2019-06-06] MEDS: PANTOPRAZOLE 20 MG TABLET PO SCH (10:10)
[2019-06-06] MEDS: HYDROCHLOROTHIAZIDE 25 MG TABLET (FP) PO SCH (10:10)
[2019-06-06] MEDS: SERTRALINE HCL 50 MG TABLET (FP) PO SCH (10:10)
[2019-06-06] MEDS: ASPIRIN COATED 81 MG TABLET.EC PO SCH (10:10)
[2019-06-06] MEDS: amLODIPine BESYLATE 10 MG TABLET (FP) PO SCH (10:10)
[2019-06-06] MEDS: IBUPROFEN 400 MG TABLET (FP) PO PRN (10:11)
[2019-06-06] MEDS: TIOTROPIUM BROMIDE 2.5 MCG (SPIRIVA) RESPIMAT INHALER IH SCH (10:12)
[2019-06-06] MEDS: BICTEGRAV/EMTRICIT/TENOFOV (BIKTARVY) 50-200-25 MG TABLET PO SCH (10:13)
--- NOTE | 2019-06-06 10:27 | PN ---
[facility] Progress Note Note: Patient requests increase in Seroquel dosage. She is currently on Seroquel 100 mg/hs and was on Seroquel 300 mghs prior to admission. Seroquel dosage will be increased to 200 mg/hs for tonight
--- NOTE | 2019-06-06 12:34 | PN ---
S CIWA - CIWA Score Nausea/Vomitin-No Nausea/No Vomiting Muscle Tremors: 1-None Visible, but [place] Anxiety: 1-Mildly Anxious Agitation: 0-Normal Activity Paroxysmal Sweats: 1-Minimal Palms Moist Orientation: 0-Oriented Tacttile Disturbances: 0-None Auditory Disturbances: 0-None Visual Disturbances: 1-Very Mild Sensitivity Headache: 0-None Present CIWA-Ar Total Score: 4 BHS Progress Note (SOAP) Subjective: 54 years old female admitted on 06/03/19 for alcohol withdrawal sx management treating with librium detox regiment feeling ok today ate breakfast and lunch in day room social with peers discussing aftercare with staff Objective: 06/06/19 12:33 Vital Signs Temperature 96 F L 06/06/19 08:51 Pulse Rate 80 06/06/19 08:51 Respiratory Rate 20 06/06/19 08:51 Blood Pressure 136/89 06/06/19 08:51 O2 Sat by Pulse Oximetry (%) Laboratory Last Values WBC 4.0 K/mm3 (4.0-10.0) 06/03/19 11:00 RBC 4.45 M/mm3 (3.60-5.2) 06/03/19 11:00 Hgb 12.5 GM/dL (10.7-15.3) 06/03/19 11:00 Hct 37.5 % (32.4-45.2) 06/03/19 11:00 MCV 84.3 fl (80-96) 06/03/19 11:00 MCH 28.2 pg (25.7-33.7) 06/03/19 11:00 MCHC 33.4 g/dl (32.0-36.0) 06/03/19 11:00 RDW 15.8 % (11.6-15.6) H 06/03/19 11:00 Plt Count 282 K/MM3 (134-434) 06/03/19 11:00 MPV 7.8 fl (7.5-11.1) D 06/03/19 11:00 Sodium 143 mmol/L (136-145) 06/03/19 11:00 Potassium 3.6 mmol/L (3.5-5.1) 06/04/19 07:50 Chloride 110 mmol/L (98-107) H 06/03/19 11:00 Carbon Dioxide 28 mmol/L (21-32) 06/03/19 11:00 Anion Gap 6 MMOL/L (8-16) L 06/03/19 11:00 BUN 18.9 mg/dL (7-18) H 06/03/19 11:00 Creatinine 1.0 mg/dL (0.55-1.3) 06/03/19 11:00 Est GFR (CKD-EPI)AfAm 73.97 06/03/19 11:00 Est GFR (CKD-EPI)NonAf 63.82 06/03/19 11:00 Random Glucose 106 mg/dL (74-106) 06/03/19 11:00 Calcium 9.4 mg/dL (8.5-10.1) 06/03/19 11:00 Total Bilirubin 0.5 mg/dL (0.2-1) 06/03/19 11:00 AST 23 U/L (15-37) 06/03/19 11:00 ALT 30 U/L (13-61) 06/03/19 11:00 Alkaline Phosphatase 125 U/L (45-117) H 06/03/19 11:00 Total Protein 8.3 g/dl (6.4-8.2) H 06/03/19 11:00 Albumin 3.7 g/dl (3.4-5.0) 06/03/19 11:00 POC Urine HCG, Qual Negative 06/03/19 09:51 RPR Titer Nonreactive (NONREACTIVE) 06/03/19 11:00 lab noted Assessment: 06/06/19 12:33 alcohol withdrawal Plan: librium regiment
[2019-06-06] MEDS ORDERED: IBUPROFEN 400 MG TABLET (FP) PO PRN (17:10)
[2019-06-06] MEDS: IBUPROFEN 600 MG TABLET (FP) PO PRN (17:44)
[2019-06-06] MEDS: hydrOXYzine PAMOATE 25 MG CAPSULE (FP) PO PRN (22:01)
[2019-06-06] MEDS: ATORVASTATIN CA 20 MG TABLET (FP) PO SCH (22:01)
[2019-06-06] MEDS: QUEtiapine FUMARATE 200 MG TABLET PO SCH (22:01)
[2019-06-06] MEDS: THIAMINE HCL 100 MG TABLET (FP) PO SCH (22:01)
[2019-06-06] MEDS: MELATONIN 5 MG TABLETS PO PRN (22:01)
[2019-06-06] MEDS: ACETAMINOPHEN 325 MG TABLET (FP) PO PRN (22:03)
[2019-06-07] MEDS: chlordiazePOXIDE HCL 10 MG CAPSULE PO SCH ×2 (05:13→17:31)
[2019-06-07] MEDS: IBUPROFEN 600 MG TABLET (FP) PO PRN ×2 (05:16→17:33)
[2019-06-07] MEDS: ACETAMINOPHEN 325 MG TABLET (FP) PO PRN (09:00)
--- NOTE | 2019-06-07 10:04 | PN ---
[facility] CIWA - CIWA Score Nausea/Vomitin-No Nausea/No Vomiting Muscle Tremors: 1-None Visible, but [place] Anxiety: 0-No Anxiety, at Ease Agitation: 0-Normal Activity Paroxysmal Sweats: 1-Minimal Palms Moist Orientation: 0-Oriented Tacttile Disturbances: 0-None Auditory Disturbances: 0-None Visual Disturbances: 0-None Headache: 0-None Present CIWA-Ar Total Score: 2 S Progress Note (SOAP) Subjective: 54 years old female admitted on 06/03/19 for alcohol withdrawal sx management treating with librium detox regiment feeling better today less tremor slept through the night encourage the patient to attend behavior and psychosocial therapies groups and meetings while in detox as part of alcohol recovery Objective: 06/07/19 10:03 Vital Signs Temperature 97.2 F L 06/07/19 08:47 Pulse Rate 86 06/07/19 08:47 Respiratory Rate 18 06/07/19 08:47 Blood Pressure 146/99 06/07/19 08:47 O2 Sat by Pulse Oximetry (%) Laboratory Last Values WBC 4.0 K/mm3 (4.0-10.0) 06/03/19 11:00 RBC 4.45 M/mm3 (3.60-5.2) 06/03/19 11:00 Hgb 12.5 GM/dL (10.7-15.3) 06/03/19 11:00 Hct 37.5 % (32.4-45.2) 06/03/19 11:00 MCV 84.3 fl (80-96) 06/03/19 11:00 MCH 28.2 pg (25.7-33.7) 06/03/19 11:00 MCHC 33.4 g/dl (32.0-36.0) 06/03/19 11:00 RDW 15.8 % (11.6-15.6) H 06/03/19 11:00 Plt Count 282 K/MM3 (134-434) 06/03/19 11:00 MPV 7.8 fl (7.5-11.1) D 06/03/19 11:00 Sodium 143 mmol/L (136-145) 06/03/19 11:00 Potassium 3.6 mmol/L (3.5-5.1) 06/04/19 07:50 Chloride 110 mmol/L (98-107) H 06/03/19 11:00 Carbon Dioxide 28 mmol/L (21-32) 06/03/19 11:00 Anion Gap 6 MMOL/L (8-16) L 06/03/19 11:00 BUN 18.9 mg/dL (7-18) H 06/03/19 11:00 Creatinine 1.0 mg/dL (0.55-1.3) 06/03/19 11:00 Est GFR (CKD-EPI)AfAm 73.97 06/03/19 11:00 Est GFR (CKD-EPI)NonAf 63.82 06/03/19 11:00 Random Glucose 106 mg/dL (74-106) 06/03/19 11:00 Calcium 9.4 mg/dL (8.5-10.1) 06/03/19 11:00 Total Bilirubin 0.5 mg/dL (0.2-1) 06/03/19 11:00 AST 23 U/L (15-37) 06/03/19 11:00 ALT 30 U/L (13-61) 06/03/19 11:00 Alkaline Phosphatase 125 U/L (45-117) H 06/03/19 11:00 Total Protein 8.3 g/dl (6.4-8.2) H 06/03/19 11:00 Albumin 3.7 g/dl (3.4-5.0) 06/03/19 11:00 POC Urine HCG, Qual Negative 06/03/19 09:51 RPR Titer Nonreactive (NONREACTIVE) 06/03/19 11:00 lab noted bp elevation 06/07/19 10:06 continue amlodipine and metoprolol Assessment: 06/07/19 10:07 alcohol withdrawal Plan: librium regiment
[2019-06-07] MEDS: BICTEGRAV/EMTRICIT/TENOFOV (BIKTARVY) 50-200-25 MG TABLET PO SCH (10:10)
[2019-06-07] MEDS: SERTRALINE HCL 50 MG TABLET (FP) PO SCH (10:11)
[2019-06-07] MEDS: PRENATAL VITAMINS W/ FOLIC ACID TABLET (FP) PO SCH (10:11)
[2019-06-07] MEDS: HYDROCHLOROTHIAZIDE 25 MG TABLET (FP) PO SCH (10:11)
[2019-06-07] MEDS: PANTOPRAZOLE 20 MG TABLET PO SCH (10:11)
[2019-06-07] MEDS: ASPIRIN COATED 81 MG TABLET.EC PO SCH (10:11)
[2019-06-07] MEDS: TIOTROPIUM BROMIDE 2.5 MCG (SPIRIVA) RESPIMAT INHALER IH SCH (10:13)
[2019-06-07] MEDS: FLUTICASONE PROP 0.05% 16 GM NASAL SPRAY NS SCH ×2 (10:13→22:00)
[2019-06-07] MEDS: amLODIPine BESYLATE 10 MG TABLET (FP) PO SCH (11:41)
[2019-06-07] MEDS: NICOTINE POLACRILEX 2 MG GUM BUC PRN ×2 (17:33→21:05)
[2019-06-07] MEDS: QUEtiapine FUMARATE 200 MG TABLET PO SCH (22:00)
[2019-06-07] MEDS ORDERED: amLODIPine BESYLATE 10 MG TABLET (FP) PO SCH ×2 (22:00)
[2019-06-07] MEDS: METHOCARBAMOL 500 MG TABLET PO PRN (22:00)
[2019-06-07] MEDS: MELATONIN 5 MG TABLETS PO PRN (22:01)
[2019-06-07] MEDS: THIAMINE HCL 100 MG TABLET (FP) PO SCH (22:01)
[2019-06-07] MEDS: ATORVASTATIN CA 20 MG TABLET (FP) PO SCH (22:01)
[2019-06-07] MEDS: hydrOXYzine PAMOATE 25 MG CAPSULE (FP) PO PRN (22:02)
[2019-06-08] MEDS ORDERED: chlordiazePOXIDE HCL 10 MG CAPSULE PO ONE (05:00)
[2019-06-08] MEDS: NICOTINE POLACRILEX 2 MG GUM BUC PRN ×2 (05:22→10:12)
[2019-06-08] MEDS: IBUPROFEN 600 MG TABLET (FP) PO PRN ×2 (06:08→12:40)
[2019-06-08 09:14] VITALS: BP 135/100; PULSE 78; TEMP 98.9
--- NOTE | 2019-06-08 09:50 | DS ---
[facility] Detox Discharge Summary Admission Date: 06/03/19 Discharge Date: 06/08/19 - History Present History: Alcohol Dependence Additional Comments: 54 years old female admitted on 06/03/19 for alcohol withdrawal sx management treated with librium detox regiment Ms Nathan has completed the librium regiment and is tolerated well seen by psychiatrist resume zoloft and seroquel alert oriented x 3 respiratory clear lungs bilaterally on auscultation extremities full range of motion skin warm and dry Pertinent Past History: time for discharge 33 minutes - Physical Exam Results Vital Signs: Vital Signs Temperature 98.9 F 06/08/19 08:57 Pulse Rate 78 06/08/19 08:57 Respiratory Rate 16 06/08/19 08:57 Blood Pressure 135/100 06/08/19 08:57 O2 Sat by Pulse Oximetry (%) Pertinent Admission Physical Exam Findings: alcohol withdrawal Vital Signs Temperature 98.9 F 06/08/19 08:57 Pulse Rate 78 06/08/19 08:57 Respiratory Rate 16 06/08/19 08:57 Blood Pressure 135/100 06/08/19 08:57 O2 Sat by Pulse Oximetry (%) Laboratory Last Values WBC 4.0 K/mm3 (4.0-10.0) 06/03/19 11:00 RBC 4.45 M/mm3 (3.60-5.2) 06/03/19 11:00 Hgb 12.5 GM/dL (10.7-15.3) 06/03/19 11:00 Hct 37.5 % (32.4-45.2) 06/03/19 11:00 MCV 84.3 fl (80-96) 06/03/19 11:00 MCH 28.2 pg (25.7-33.7) 06/03/19 11:00 MCHC 33.4 g/dl (32.0-36.0) 06/03/19 11:00 RDW 15.8 % (11.6-15.6) H 06/03/19 11:00 Plt Count 282 K/MM3 (134-434) 06/03/19 11:00 MPV 7.8 fl (7.5-11.1) D 06/03/19 11:00 Sodium 143 mmol/L (136-145) 06/03/19 11:00 Potassium 3.6 mmol/L (3.5-5.1) 06/04/19 07:50 Chloride 110 mmol/L (98-107) H 06/03/19 11:00 Carbon Dioxide 28 mmol/L (21-32) 06/03/19 11:00 Anion Gap 6 MMOL/L (8-16) L 06/03/19 11:00 BUN 18.9 mg/dL (7-18) H 06/03/19 11:00 Creatinine 1.0 mg/dL (0.55-1.3) 06/03/19 11:00 Est GFR (CKD-EPI)AfAm 73.97 06/03/19 11:00 Est GFR (CKD-EPI)NonAf 63.82 06/03/19 11:00 Random Glucose 106 mg/dL (74-106) 06/03/19 11:00 Calcium 9.4 mg/dL (8.5-10.1) 06/03/19 11:00 Total Bilirubin 0.5 mg/dL (0.2-1) 06/03/19 11:00 AST 23 U/L (15-37) 06/03/19 11:00 ALT 30 U/L (13-61) 06/03/19 11:00 Alkaline Phosphatase 125 U/L (45-117) H 06/03/19 11:00 Total Protein 8.3 g/dl (6.4-8.2) H 06/03/19 11:00 Albumin 3.7 g/dl (3.4-5.0) 06/03/19 11:00 POC Urine HCG, Qual Negative 06/03/19 09:51 RPR Titer Nonreactive (NONREACTIVE) 06/03/19 11:00 lab noted - Treatment Hospital Course: Detox Protocol Followed, Detoxed Safely, Responded well, Discharged Condition Good, Rehab Referral Accepted Patient has Accepted [facility] Referral [facility] - Medication Discharge Medications: Ambulatory Orders Aspirin Coated [Ecotrin -] 81 mg PO DAILY #30 tablet.ec 10/27/18 Bictegrav/Emtricit/Tenofov Ala [Biktarvy 50-200-25 mg Tablet] 1 each PO DAILY # 30 tablet 10/27/18 Quetiapine Fumarate [Seroquel -] 300 mg PO HS #30 tablet 01/18/19 Pantoprazole Sodium [Protonix -] 20 mg PO DAILY 04/17/19 Varenicline Tartrate [Chantix -] 0.5 mg PO BID 04/17/19 Sertraline HCl [Zoloft] 100 mg PO DAILY #30 tablet 04/20/19 Atorvastatin Ca [Lipitor] 20 mg PO HS #30 tablet 04/21/19 Fluticasone Prop 0.05% Nasal [Flonase -] 2 spray NS BID 06/03/19 Albuterol Sulfate Inhaler - [Ventolin HFA Inhaler -] 2 inh PO Q4H PRN #1 inh Amlodipine Besylate [Norvasc -] 10 mg PO DAILY #30 tablet 06/08/19 Hydrochlorothiazide [Hctz -] 25 mg PO DAILY #30 tablet 06/08/19 Metoprolol Succinate [Toprol XL -] 50 mg PO DAILY #14 tab.sr.24h 06/08/19 Tiotropium [place] [Spiriva] 1 inh IH DAILY #1 cap.w.dev 06/08/19 - Diagnosis (1) Alcohol dependence with uncomplicated withdrawal Status: Acute (2) Nicotine dependence Status: Acute Qualifiers: Nicotine product type: cigarettes Substance use status: in withdrawal Qualified Code(s): F17.213 - Nicotine dependence, cigarettes, with withdrawal (3) Asthma Status: Chronic Qualifiers: Asthma severity: mild Asthma persistence: intermittent Asthma complication type: uncomplicated Qualified Code(s): J45.20 - Mild intermittent asthma, uncomplicated (4) COPD (chronic obstructive pulmonary disease) Status: Chronic Qualifiers: COPD type: emphysema Emphysema type: other Qualified Code(s): J43.8 - Other emphysema (5) Essential hypertension Status: Chronic (6) GERD (gastroesophageal reflux disease) Status: Chronic Qualifiers: Esophagitis presence: without esophagitis Qualified Code(s): K21.9 - Gastro -esophageal reflux disease without esophagitis (7) HIV (human immunodeficiency virus infection) Status: Chronic Qualifiers: HIV symptom status: asymptomatic Qualified Code(s): Z21 - Asymptomatic human immunodeficiency virus [HIV] infection status (8) Hypercholesterolemia Status: Chronic (9) Nicotine dependence Status: Chronic Qualifiers: Nicotine product type: cigarettes Substance use status: uncomplicated Qualified Code(s): F17.210 - Nicotine dependence, cigarettes, uncomplicated (10) Substance induced mood disorder Status: Suspected - AMA Did Patient Leave Against Medical Advice: No CIWA Score - CIWA Score Nausea/Vomitin-No Nausea/No Vomiting Muscle Tremors: 1-None Visible, but [place] Anxiety: 0-No Anxiety, at Ease Agitation: 0-Normal Activity Paroxysmal Sweats: No Perspiration Orientation: 0-Oriented Tacttile Disturbances: 0-None Auditory Disturbances: 0-None Visual Disturbances: 0-None Headache: 0-None Present CIWA-Ar Total Score: 1
[2019-06-08] MEDS: BICTEGRAV/EMTRICIT/TENOFOV (BIKTARVY) 50-200-25 MG TABLET PO SCH (10:09)
[2019-06-08] MEDS: ASPIRIN COATED 81 MG TABLET.EC PO SCH (10:10)
[2019-06-08] MEDS: HYDROCHLOROTHIAZIDE 25 MG TABLET (FP) PO SCH (10:11)
[2019-06-08] MEDS: SERTRALINE HCL 50 MG TABLET (FP) PO SCH (10:11)
[2019-06-08] MEDS: PANTOPRAZOLE 20 MG TABLET PO SCH (10:11)
[2019-06-08] MEDS: FLUTICASONE PROP 0.05% 16 GM NASAL SPRAY NS SCH (10:13)
[2019-06-08] MEDS: TIOTROPIUM BROMIDE 2.5 MCG (SPIRIVA) RESPIMAT INHALER IH SCH (10:14)
[2019-06-08] MEDS: PRENATAL VITAMINS W/ FOLIC ACID TABLET (FP) PO SCH (10:14)
== END 2019-06-08 12:45 | disposition other institution (70) | DRG 774 ==
LOC: YASAS 09:15 → Y3N 10:30
PROVIDERS: ADMIT Allergy & Immunology; ATTEND Allergy & Immunology
PROC: HZ2ZZZZ Detoxification Services for Substance Abuse Treatment (ICD-10-PCS; principal; 2019-06-03)
DX: F10.230 Alcohol dependence with withdrawal, uncomplicated (principal); F14.10 Cocaine abuse, uncomplicated; F17.210 Nicotine dependence, cigarettes, uncomplicated; F19.282 Other psychoactive substance dependence with psychoactive substance-induced sleep disorder; F19.24 Other psychoactive substance dependence with psychoactive substance-induced mood disorder; F32.9 Major depressive disorder, single episode, unspecified; Z21 Asymptomatic human immunodeficiency virus [HIV] infection status; J43.8 Other emphysema; I10 Essential (primary) hypertension; R01.1 Cardiac murmur, unspecified; J45.20 Mild intermittent asthma, uncomplicated; K21.9 Gastro-esophageal reflux disease without esophagitis; E78.00 Pure hypercholesterolemia, unspecified; Z86.19 Personal history of other infectious and parasitic diseases; Z88.1 Allergy status to other antibiotic agents; Z91.018 Allergy to other foods; Z88.8 Allergy status to other drugs, medicaments and biological substances
CPT/HCPCS: 36415; 80053; 81025; 84132; 85027; 86593; J0735

== ENCOUNTER 2019-06-08 12:58 | Inpatient (IN) | payer OTHER ==
[2019-06-08] MEDS ORDERED: hydrOXYzine PAMOATE 50 MG CAPSULE (FP) PO PRN (13:41)
[2019-06-08] MEDS ORDERED: ACETAMINOPHEN 325 MG TABLET (FP) PO PRN (13:41)
[2019-06-08] MEDS ORDERED: MAGNESIUM HYDROX 2400MG/30ML ORAL SUSPENSION 30 ML CUP PO PRN (13:41)
[2019-06-08] MEDS ORDERED: MENTHOL/PHENOL 1 EACH UD MM PRN (13:41)
[2019-06-08] MEDS ORDERED: P-EPHED 60MG/TRIPROLIDI 2.5MG TABLET PO PRN (13:41)
[2019-06-08] MEDS ORDERED: guaiFENesin 200 MG/10 ML 10 ML UNIT-DOSE CUPS PO PRN (13:41)
[2019-06-08] MEDS ORDERED: IBUPROFEN 400 MG TABLET (FP) PO PRN (13:41)
[2019-06-08] MEDS ORDERED: MAG HYDROX/AL HYDROX/SIMETH 30 ML UNIT-DOSE CUP PO PRN (13:41)
[2019-06-08] MEDS ORDERED: LOPERAMIDE HCL 2 MG CAPSULE PO PRN (13:41)
[2019-06-08] MEDS ORDERED: MAGNESIUM CITRATE 300 ML BOTTLE PO PRN (13:41)
[2019-06-08] MEDS ORDERED: ALBUTEROL SO4 HFA INHALER IH PRN (13:47)
--- NOTE | 2019-06-08 13:50 | HP ---
[facility] Rehab Assess/Revision - Admission History Admitted to Rehab from: [facility] Date of Admission to Rehab: 06/08/2019 - Findings Detox History & Physical reviewed: Yes Concur with findings: Yes Inpatient Rehab Admission - Rehab Decision to Admit Inpatient rehab admission?: Yes - Initial Determination Are CD services needed?: Yes Free of communicable disease: Yes Not in need of hospitalization: Yes - Rehab Admission Criteria Previous failed treatment: Yes Poor recovery environment: Yes Comorbidities: Yes Lacks judgement: Yes Patient is meeting Inpatient Rehab admission criteria:: Yes
[2019-06-08] MEDS: METHOCARBAMOL 500 MG TABLET PO SCH ×3 (15:19→21:18)
--- NOTE | 2019-06-08 15:36 | PN ---
[facility] Progress Note Note: Psychiatry Attending's note : Nurse Anika called for continuity of orders. Patient got tansferred today to [facility]. Chart reviewed. Medications verified. Noted from Dr Mcallister + psychiatric rn Sharmila Russell : appreciated. Seroquel 200 mg po hs + zoloft 100 mg po daily. Resumed. Continuity of care. Informed consent given by patient. Liaison will follow.
[2019-06-08] MEDS: THIAMINE HCL 100 MG TABLET (FP) PO SCH (21:18)
[2019-06-08] MEDS: METHYL SALICYLATE/MENTHOL OINT 30 GM TUBE TP SCH (21:18)
[2019-06-08] MEDS: IBUPROFEN 400 MG TABLET (FP) PO PRN (21:18)
[2019-06-08] MEDS: MELATONIN 5 MG TABLETS PO PRN (21:20)
[2019-06-08] MEDS: ATORVASTATIN CA 20 MG TABLET (FP) PO SCH (21:20)
[2019-06-08] MEDS ORDERED: QUEtiapine FUMARATE 200 MG TABLET PO SCH (22:00)
[2019-06-08] MEDS ORDERED: FLUTICASONE PROP 0.05% 16 GM NASAL SPRAY NS SCH (22:00)
[2019-06-09] MEDS ORDERED: PT OWN MED DRAWER 7, Y5N ONE (08:32)
[2019-06-09] MEDS: amLODIPine BESYLATE 10 MG TABLET (FP) PO SCH (09:13)
[2019-06-09] MEDS: BICTEGRAV/EMTRICIT/TENOFOV (BIKTARVY) 50-200-25 MG TABLET PO SCH (09:13)
[2019-06-09] MEDS: ASPIRIN COATED 81 MG TABLET.EC PO SCH (09:13)
[2019-06-09] MEDS: METHYL SALICYLATE/MENTHOL OINT 30 GM TUBE TP SCH ×2 (09:13→21:41)
[2019-06-09] MEDS: PRENATAL VITAMINS W/ FOLIC ACID TABLET (FP) PO SCH (09:13)
[2019-06-09] MEDS: PANTOPRAZOLE 20 MG TABLET PO SCH (09:14)
[2019-06-09] MEDS: NICOTINE 14 MG/24 HOURS TOPICAL PATCH TD SCH (09:14)
[2019-06-09] MEDS: FLUTICASONE PROP 0.05% 16 GM NASAL SPRAY NS SCH (09:14)
[2019-06-09] MEDS: METHOCARBAMOL 500 MG TABLET PO SCH ×4 (09:14→21:39)
[2019-06-09] MEDS: SERTRALINE HCL 50 MG TABLET (FP) PO SCH (09:14)
[2019-06-09] MEDS: TIOTROPIUM BROMIDE 2.5 MCG (SPIRIVA) RESPIMAT INHALER IH SCH (09:16)
[2019-06-09] MEDS ORDERED: HYDROCHLOROTHIAZIDE 25 MG TABLET (FP) PO SCH (10:00)
[2019-06-09] MEDS: IBUPROFEN 400 MG TABLET (FP) PO PRN ×2 (11:56→18:08)
[2019-06-09] MEDS ORDERED: BENZOCAINE 20 % GEL TUBE MM PRN (11:58)
[2019-06-09] MEDS ORDERED: HYDROCHLOROTHIAZIDE 25 MG TABLET (FP) PO ONE (12:04)
--- NOTE | 2019-06-09 12:04 | PN ---
[facility] Progress Note (SOAP) Subjective: patient with elevated BP, asymptomatic, but states that she is in pain because of tooth pain, she reports she has to have 4 teeth removed. Objective: 06/09/19 12:01 Vital Signs (72 hours) 06/08/19 06/09/19 06/09/19 12:53 00:30 03:30 Temperature 97.5 F L Pulse Rate 90 Respiratory 18 18 16 Rate Blood Pressure 129/90 06/09/19 06/09/19 06:30 09:23 Temperature Pulse Rate 81 Respiratory 18 Rate Blood Pressure 162/102 H P/E: General: no apparent distress HEENTM: cavities, poor dentition, left molars Neck" supple, no JVD Lungs: clear Heart: s1 s2 Assessment: Hypertensive, on medication Her BP has been controlled, this elevation may be related to pain 06/09/19 12:02 Plan: Pain medication given HCTZ increased to 50mg daily Continue to monitor
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
[2019-06-09] MEDS: NICOTINE POLACRILEX 2 MG GUM BUC PRN (18:09)
[2019-06-09] MEDS: hydrOXYzine PAMOATE 25 MG CAPSULE (FP) PO PRN (21:39)
[2019-06-09] MEDS: MELATONIN 5 MG TABLETS PO PRN (21:39)
[2019-06-09] MEDS: THIAMINE HCL 100 MG TABLET (FP) PO SCH (21:39)
[2019-06-09] MEDS: ATORVASTATIN CA 20 MG TABLET (FP) PO SCH (21:39)
[2019-06-09] MEDS: QUEtiapine FUMARATE 300 MG TABLET PO SCH (21:40)
[2019-06-09] MEDS ORDERED: QUEtiapine FUMARATE 300 MG TABLET PO SCH (22:00)
[2019-06-10] MEDS ORDERED: COLLOIDAL OATMEAL 1 BAR EACH TP PRN (08:08)
[2019-06-10] MEDS ORDERED: PT OWN MED DRAWER 7, Y5N ONE (08:30)
[2019-06-10] MEDS ORDERED: HYDROCHLOROTHIAZIDE 25 MG TABLET (FP) PO ONE (08:40)
[2019-06-10] MEDS: FLUTICASONE PROP 0.05% 16 GM NASAL SPRAY NS SCH (09:22)
[2019-06-10] MEDS: amLODIPine BESYLATE 10 MG TABLET (FP) PO SCH (09:22)
[2019-06-10] MEDS: NICOTINE 14 MG/24 HOURS TOPICAL PATCH TD SCH (09:22)
[2019-06-10] MEDS: METHOCARBAMOL 500 MG TABLET PO SCH ×4 (09:22→21:15)
[2019-06-10] MEDS: SERTRALINE HCL 50 MG TABLET (FP) PO SCH (09:22)
[2019-06-10] MEDS: ASPIRIN COATED 81 MG TABLET.EC PO SCH (09:22)
[2019-06-10] MEDS: PANTOPRAZOLE 20 MG TABLET PO SCH (09:22)
[2019-06-10] MEDS: BICTEGRAV/EMTRICIT/TENOFOV (BIKTARVY) 50-200-25 MG TABLET PO SCH (09:22)
[2019-06-10] MEDS: PRENATAL VITAMINS W/ FOLIC ACID TABLET (FP) PO SCH (09:22)
[2019-06-10] MEDS: TIOTROPIUM BROMIDE 2.5 MCG (SPIRIVA) RESPIMAT INHALER IH SCH (09:23)
[2019-06-10] MEDS ORDERED: HYDROCHLOROTHIAZIDE 25 MG TABLET (FP) PO SCH (10:00)
[2019-06-10] MEDS: METHYL SALICYLATE/MENTHOL OINT 30 GM TUBE TP SCH ×2 (10:07→21:17)
--- NOTE | 2019-06-10 10:09 | PN ---
[facility] Progress Note Note: Vital Signs Period Temp Pulse Resp BP Sys/Newman Pulse Ox Last 24 Hr 74-80 18-18 127-161/82-101 patient's BP elevated this morning. Asymptomatic. All BP medications were scheduled for 10AM. HCTZ was changed to 6am, and stat dose for now given. Will continue to monitor. General: no apparent distress, HEENTM: PERRLA Lungs: clear Heart: s1 s2 Neuro: Cn 2-12 intact
[2019-06-10] MEDS ORDERED: cloNIDine HCL 0.1 MG TABLET PO ONE (12:15)
[2019-06-10] MEDS: IBUPROFEN 400 MG TABLET (FP) PO PRN ×2 (12:55→23:14)
[2019-06-10] MEDS ORDERED: IBUPROFEN 600 MG TABLET (FP) PO PRN (12:57)
[2019-06-10] MEDS: NICOTINE POLACRILEX 2 MG GUM BUC PRN ×3 (13:42→21:19)
[2019-06-10] MEDS: THIAMINE HCL 100 MG TABLET (FP) PO SCH (21:15)
[2019-06-10] MEDS: ATORVASTATIN CA 20 MG TABLET (FP) PO SCH (21:16)
[2019-06-10] MEDS: MELATONIN 5 MG TABLETS PO PRN (21:16)
[2019-06-10] MEDS: hydrOXYzine PAMOATE 25 MG CAPSULE (FP) PO PRN (21:17)
[2019-06-10] MEDS: QUEtiapine FUMARATE 300 MG TABLET PO SCH (21:18)
[2019-06-11] MEDS: HYDROCHLOROTHIAZIDE 25 MG TABLET (FP) PO SCH (07:17)
[2019-06-11] MEDS: PRENATAL VITAMINS W/ FOLIC ACID TABLET (FP) PO SCH (09:10)
[2019-06-11] MEDS: PANTOPRAZOLE 20 MG TABLET PO SCH (09:10)
[2019-06-11] MEDS: METHOCARBAMOL 500 MG TABLET PO SCH ×4 (09:10→23:26)
[2019-06-11] MEDS: amLODIPine BESYLATE 10 MG TABLET (FP) PO SCH (09:10)
[2019-06-11] MEDS: SERTRALINE HCL 50 MG TABLET (FP) PO SCH (09:10)
[2019-06-11] MEDS: ASPIRIN COATED 81 MG TABLET.EC PO SCH (09:10)
[2019-06-11] MEDS: METHYL SALICYLATE/MENTHOL OINT 30 GM TUBE TP SCH ×2 (09:11→21:55)
[2019-06-11] MEDS: BICTEGRAV/EMTRICIT/TENOFOV (BIKTARVY) 50-200-25 MG TABLET PO SCH (09:11)
[2019-06-11] MEDS: NICOTINE 14 MG/24 HOURS TOPICAL PATCH TD SCH (09:11)
[2019-06-11] MEDS: FLUTICASONE PROP 0.05% 16 GM NASAL SPRAY NS SCH (09:13)
[2019-06-11] MEDS: TIOTROPIUM BROMIDE 2.5 MCG (SPIRIVA) RESPIMAT INHALER IH SCH (09:13)
[2019-06-11] MEDS ORDERED: PT OWN MED DRAWER 7, Y5N ONE ×2 (13:11→21:01)
[2019-06-11] MEDS: NICOTINE POLACRILEX 2 MG GUM BUC PRN ×3 (13:20→19:42)
[2019-06-11] MEDS: IBUPROFEN 400 MG TABLET (FP) PO PRN (16:39)
[2019-06-11] MEDS: hydrOXYzine PAMOATE 25 MG CAPSULE (FP) PO PRN (19:42)
[2019-06-11] MEDS: THIAMINE HCL 100 MG TABLET (FP) PO SCH (21:31)
[2019-06-11] MEDS: ATORVASTATIN CA 20 MG TABLET (FP) PO SCH (21:31)
[2019-06-11] MEDS: QUEtiapine FUMARATE 300 MG TABLET PO SCH (21:31)
[2019-06-11] MEDS: MELATONIN 5 MG TABLETS PO PRN (21:32)
[2019-06-12] MEDS: HYDROCHLOROTHIAZIDE 25 MG TABLET (FP) PO SCH (07:48)
[2019-06-12] MEDS: hydrOXYzine PAMOATE 25 MG CAPSULE (FP) PO PRN ×2 (07:50→21:06)
[2019-06-12] MEDS: NICOTINE POLACRILEX 2 MG GUM BUC PRN ×2 (07:51→10:01)
[2019-06-12] MEDS: SERTRALINE HCL 50 MG TABLET (FP) PO SCH (09:57)
[2019-06-12] MEDS: PRENATAL VITAMINS W/ FOLIC ACID TABLET (FP) PO SCH (09:57)
[2019-06-12] MEDS: METHYL SALICYLATE/MENTHOL OINT 30 GM TUBE TP SCH ×2 (09:57→21:06)
[2019-06-12] MEDS: TIOTROPIUM BROMIDE 2.5 MCG (SPIRIVA) RESPIMAT INHALER IH SCH (09:57)
[2019-06-12] MEDS: BICTEGRAV/EMTRICIT/TENOFOV (BIKTARVY) 50-200-25 MG TABLET PO SCH (09:57)
[2019-06-12] MEDS: ASPIRIN COATED 81 MG TABLET.EC PO SCH (09:57)
[2019-06-12] MEDS: METHOCARBAMOL 500 MG TABLET PO SCH ×4 (09:58→21:06)
[2019-06-12] MEDS: PANTOPRAZOLE 20 MG TABLET PO SCH (09:58)
[2019-06-12] MEDS: NICOTINE 14 MG/24 HOURS TOPICAL PATCH TD SCH (09:58)
[2019-06-12] MEDS: amLODIPine BESYLATE 10 MG TABLET (FP) PO SCH (09:58)
[2019-06-12] MEDS: FLUTICASONE PROP 0.05% 16 GM NASAL SPRAY NS SCH (09:59)
[2019-06-12] MEDS: IBUPROFEN 400 MG TABLET (FP) PO PRN (13:08)
[2019-06-12] MEDS: ATORVASTATIN CA 20 MG TABLET (FP) PO SCH (21:06)
[2019-06-12] MEDS: THIAMINE HCL 100 MG TABLET (FP) PO SCH (21:06)
[2019-06-12] MEDS: QUEtiapine FUMARATE 300 MG TABLET PO SCH (21:09)
[2019-06-13] MEDS: HYDROCHLOROTHIAZIDE 25 MG TABLET (FP) PO SCH (07:04)
[2019-06-13] MEDS: NICOTINE POLACRILEX 2 MG GUM BUC PRN ×2 (07:05→21:11)
[2019-06-13] MEDS ORDERED: PT OWN MED DRAWER 7, Y5N ONE ×2 (09:01→10:10)
[2019-06-13] MEDS: TIOTROPIUM BROMIDE 2.5 MCG (SPIRIVA) RESPIMAT INHALER IH SCH (10:09)
[2019-06-13] MEDS: SERTRALINE HCL 50 MG TABLET (FP) PO SCH (10:09)
[2019-06-13] MEDS: ASPIRIN COATED 81 MG TABLET.EC PO SCH (10:09)
[2019-06-13] MEDS: PANTOPRAZOLE 20 MG TABLET PO SCH (10:09)
[2019-06-13] MEDS: PRENATAL VITAMINS W/ FOLIC ACID TABLET (FP) PO SCH (10:09)
[2019-06-13] MEDS: amLODIPine BESYLATE 10 MG TABLET (FP) PO SCH (10:09)
[2019-06-13] MEDS: METHOCARBAMOL 500 MG TABLET PO SCH ×4 (10:09→21:08)
[2019-06-13] MEDS: IBUPROFEN 400 MG TABLET (FP) PO PRN (10:11)
[2019-06-13] MEDS: BICTEGRAV/EMTRICIT/TENOFOV (BIKTARVY) 50-200-25 MG TABLET PO SCH (10:11)
[2019-06-13] MEDS: FLUTICASONE PROP 0.05% 16 GM NASAL SPRAY NS SCH (10:13)
[2019-06-13] MEDS: METHYL SALICYLATE/MENTHOL OINT 30 GM TUBE TP SCH ×2 (10:13→21:09)
[2019-06-13] MEDS: hydrOXYzine PAMOATE 25 MG CAPSULE (FP) PO PRN ×2 (10:14→21:11)
[2019-06-13] MEDS: NICOTINE 14 MG/24 HOURS TOPICAL PATCH TD SCH (10:58)
[2019-06-13] MEDS: THIAMINE HCL 100 MG TABLET (FP) PO SCH (21:06)
[2019-06-13] MEDS: ATORVASTATIN CA 20 MG TABLET (FP) PO SCH (21:09)
[2019-06-13] MEDS: QUEtiapine FUMARATE 300 MG TABLET PO SCH (21:10)
[2019-06-13] MEDS: MELATONIN 5 MG TABLETS PO PRN (21:10)
[2019-06-14] MEDS: HYDROCHLOROTHIAZIDE 25 MG TABLET (FP) PO SCH (06:51)
[2019-06-14 07:04] VITALS: TEMP 97.5
[2019-06-14] MEDS: METHYL SALICYLATE/MENTHOL OINT 30 GM TUBE TP SCH ×2 (09:28→21:00)
[2019-06-14] MEDS: BICTEGRAV/EMTRICIT/TENOFOV (BIKTARVY) 50-200-25 MG TABLET PO SCH (09:28)
[2019-06-14] MEDS: NICOTINE 14 MG/24 HOURS TOPICAL PATCH TD SCH (09:29)
[2019-06-14] MEDS: FLUTICASONE PROP 0.05% 16 GM NASAL SPRAY NS SCH (09:29)
[2019-06-14] MEDS: amLODIPine BESYLATE 10 MG TABLET (FP) PO SCH (09:29)
[2019-06-14] MEDS: METHOCARBAMOL 500 MG TABLET PO SCH ×4 (09:30→20:59)
[2019-06-14] MEDS: TIOTROPIUM BROMIDE 2.5 MCG (SPIRIVA) RESPIMAT INHALER IH SCH (09:30)
[2019-06-14] MEDS: PANTOPRAZOLE 20 MG TABLET PO SCH (09:30)
[2019-06-14] MEDS: SERTRALINE HCL 50 MG TABLET (FP) PO SCH (09:30)
[2019-06-14] MEDS: PRENATAL VITAMINS W/ FOLIC ACID TABLET (FP) PO SCH (09:30)
[2019-06-14] MEDS: hydrOXYzine PAMOATE 25 MG CAPSULE (FP) PO PRN (09:33)
[2019-06-14] MEDS: NICOTINE POLACRILEX 2 MG GUM BUC PRN ×2 (09:33→16:24)
[2019-06-14] MEDS: ASPIRIN COATED 81 MG TABLET.EC PO SCH (10:17)
--- NOTE | 2019-06-14 10:49 | PN ---
[facility] Progress Note Note: Patient is scheduled for discharge tomorrow. Scripts for 30 days supply of medications(Zoloft 100 mg/day, Seroquel 300 mg/hs) will be electronically transmitted to [facility] at [address] [place] [address], [place] [address]
[2019-06-14 11:52] VITALS: BP 131/86; PULSE 75
--- NOTE | 2019-06-14 14:18 | DS ---
[facility] Rehab Discharge Summary - [facility] Rehab Discharge Summary Admission Date: 06/08/19 Discharge Date: 06/15/19 - History Present History: Alcohol dependence, Cocaine dependence Additional Comments: Pt is a 54 y/o female with a hx of MORIS admitted to rehab and scheduled to discharge on 06/15/19. Pt has been referred to [facility] [place] for CD aftercare. Pt reports she has a primary care provider, Dr. Thompson [facility] for medical management. Pertinent Past History: Asthma COPD Dyslipidemia HIV+ HTN Osteoporosis Left Hip - Discharge Physical Exam Vital Signs: Vital Signs Temperature 97.5 F L 06/14/19 06:50 Pulse Rate 75 06/14/19 08:50 Respiratory Rate 18 06/14/19 06:50 Blood Pressure 131/86 06/14/19 08:50 O2 Sat by Pulse Oximetry (%) Alert o x 3 nad oob ambulating with steady gait cardiac:S1 S2,rrr lungs:cta,[place]. abdomen:soft,+bs,nt.nd extremities/skin:no edema,skin intact Pertinent Admission Physical Exam Findings: Status Stable and unchanged - Treatment Discharge Condition: Discharge condition good Hospital Course: Rehabilitated safely and responded well CD aftercare referral accepted participated in groups and individual sessions while in rehab. - Medication Discharge Medications: Ambulatory Orders Quetiapine Fumarate [Seroquel -] 300 mg PO HS #30 tablet 01/18/19 Pantoprazole Sodium [Protonix -] 20 mg PO DAILY 04/17/19 Varenicline Tartrate [Chantix -] 0.5 mg PO BID 04/17/19 Fluticasone Prop 0.05% Nasal [Flonase -] 2 spray NS BID 06/03/19 Albuterol Sulfate Inhaler - [Ventolin HFA Inhaler -] 2 inh PO Q4H PRN #1 inh 06/03 Amlodipine Besylate [Norvasc -] 10 mg PO DAILY #30 tablet 06/14/19 Aspirin Coated [Ecotrin -] 81 mg PO DAILY #30 tablet.ec 06/14/19 Atorvastatin Ca [Lipitor] 20 mg PO HS #30 tablet 06/14/19 Bictegrav/Emtricit/Tenofov Ala [Biktarvy 50-200-25 mg Tablet] 1 each PO DAILY # 30 tablet 03/02/20 Hydrochlorothiazide [Hctz -] 25 mg PO DAILY #30 tablet 06/14/19 Metoprolol Succinate [Toprol XL -] 50 mg PO DAILY #30 tab.sr.24h 06/14/19 Quetiapine Fumarate [Seroquel -] 300 mg PO HS #30 tablet 06/14/19 Sertraline HCl [Zoloft] 100 mg PO DAILY #30 tablet 06/14/19 Tiotropium [place] [Spiriva] 1 inh IH DAILY #1 cap.w.dev 06/14/19 - Medication-Assisted Treatment (MAT) Medication-Assisted Treatment (MAT): No - Discharge Instructions Diet, activity, other medical instructions: Diet: Activity: Other medical instructions: - Diagnosis (1) Alcohol dependence Status: Chronic Qualifiers: Substance use status: uncomplicated Qualified Code(s): F10.20 - Alcohol dependence, uncomplicated (2) Cocaine dependence Status: Acute Qualifiers: Substance use status: uncomplicated Qualified Code(s): F14.20 - Cocaine dependence, uncomplicated (3) Dyslipidemia Status: Chronic (4) Nicotine dependence Status: Chronic Qualifiers: Nicotine product type: cigarettes Substance use status: uncomplicated Qualified Code(s): F17.210 - Nicotine dependence, cigarettes, uncomplicated (5) Asthma Status: Chronic Qualifiers: Asthma severity: mild Asthma persistence: intermittent Asthma complication type: uncomplicated Qualified Code(s): J45.20 - Mild intermittent asthma, uncomplicated (6) Back pain Status: Chronic Qualifiers: Chronicity: chronic Back pain laterality: bilateral Sciatica presence: without sciatica (7) COPD (chronic obstructive pulmonary disease) Status: Chronic Qualifiers: COPD type: emphysema Emphysema type: other Qualified Code(s): J43.8 - Other emphysema (8) Essential hypertension Status: Chronic (9) GERD (gastroesophageal reflux disease) Status: Chronic Qualifiers: Esophagitis presence: without esophagitis Qualified Code(s): K21.9 - Gastro -esophageal reflux disease without esophagitis (10) HIV (human immunodeficiency virus infection) Status: Chronic Qualifiers: HIV symptom status: asymptomatic Qualified Code(s): Z21 - Asymptomatic human immunodeficiency virus [HIV] infection status (11) Hypercholesterolemia Status: Chronic (12) Osteoarthritis of left hip Status: Chronic Qualifiers: Osteoarthritis type: primary Qualified Code(s): M16.12 - Unilateral primary osteoarthritis, left hip - Follow-up Referral Minutes to complete discharge: 25 - AMA Did Patient Leave Against Medical Advice: No Additional Comments: [facility]esy Rx electronically sent to pt's home pharmacy for tack picker after discharge.
[2019-06-14] MEDS: ATORVASTATIN CA 20 MG TABLET (FP) PO SCH (20:59)
[2019-06-14] MEDS: MELATONIN 5 MG TABLETS PO PRN (20:59)
[2019-06-14] MEDS: THIAMINE HCL 100 MG TABLET (FP) PO SCH (20:59)
[2019-06-14] MEDS: QUEtiapine FUMARATE 300 MG TABLET PO SCH (21:00)
[2019-06-15] MEDS: HYDROCHLOROTHIAZIDE 25 MG TABLET (FP) PO SCH (06:12)
== END 2019-06-15 06:24 | disposition home or self-care (01) | DRG 772 ==
LOC: YASAS 12:58 → Y3E 12:59
PROVIDERS: ADMIT Allergy & Immunology; ATTEND Allergy & Immunology
PROC: HZ42ZZZ Group Counseling for Substance Abuse Treatment, Cognitive-Behavioral (ICD-10-PCS; principal; 2019-06-08)
DX: F10.20 Alcohol dependence, uncomplicated (principal); F14.20 Cocaine dependence, uncomplicated; F17.210 Nicotine dependence, cigarettes, uncomplicated; F19.282 Other psychoactive substance dependence with psychoactive substance-induced sleep disorder; F32.9 Major depressive disorder, single episode, unspecified; F39 Unspecified mood [affective] disorder; Z21 Asymptomatic human immunodeficiency virus [HIV] infection status; J44.9 Chronic obstructive pulmonary disease, unspecified; J45.20 Mild intermittent asthma, uncomplicated; I10 Essential (primary) hypertension; E78.5 Hyperlipidemia, unspecified; K21.9 Gastro-esophageal reflux disease without esophagitis; M16.12 Unilateral primary osteoarthritis, left hip; R01.1 Cardiac murmur, unspecified; Z86.19 Personal history of other infectious and parasitic diseases; Z88.1 Allergy status to other antibiotic agents; Z88.8 Allergy status to other drugs, medicaments and biological substances; Z91.013 Allergy to seafood; Z91.018 Allergy to other foods
CPT/HCPCS: J0735

== ENCOUNTER 2019-12-31 08:39 | Inpatient (IN) | payer OTHER ==
--- NOTE | 2019-12-31 09:07 | [facility].RME ---
Substance Use & Tx History - Substance Use History Alcohol Substance amount: 2-3 pints vodka Frequency of use: Daily Substance route: Oral Date of Last Use: 12/31/19 (1 beer started age 16) Cocaine-Crack Substance amount: $200-300 Frequency of use: Daily Substance route: Smoking Date of Last Use: 12/30/19 (started age 18) Nicotine Substance amount: 1.5 packs Frequency of use: Daily Substance route: Smoking Date of Last Use: 12/31/19 (started age 14) Physical/Psych/Mental Status - Behavior General Behavior: Increased activity (restlessness, agitation) Eye Contact: Normal - Cooperativeness Cooperativeness: Cooperative - Thinking Thought Processes: Tight, Logical, Goal Directed - Physical Health Problems Is patient presently having any pain?: No Does patient presently have any injuries (include location): No Does patient currently have a fever: No Is patient : No CIWA Nausea/Vomitin Muscle Tremors: 4-Moderate,w/Arms Extend Anxiety: 4-Mod. Anxious/Guarded Agitation: 4-Moderately Restless Paroxysmal Sweats: 4-Forehead w/Sweat Beads Orientation: 1-Uncertain about Date Tacttile Disturbances: 0-None Auditory Disturbances: 0-None Visual Disturbances: 0-None Headache: 2-Mild CIWA-Ar Total Score: 22
[2019-12-31 09:43] VITALS: BMI 28.1
--- NOTE | 2019-12-31 09:56 | HP ---
CIWA Score Nausea/Vomitin Muscle Tremors: 4-Moderate,w/Arms Extend Anxiety: 4-Mod. Anxious/Guarded Agitation: 4-Moderately Restless Paroxysmal Sweats: 4-Forehead w/Sweat Beads Orientation: 1-Uncertain about Date Tacttile Disturbances: 0-None Auditory Disturbances: 0-None Visual Disturbances: 0-None Headache: 2-Mild CIWA-Ar Total Score: 22 - Admission Criteria OASAS Guidelines: Admission for Medically Managed Detox: Requires at least one of the followin. CIWA greater than 12 2. Seizures within the past 24 hours 3. Delirium tremens within the past 24 hours 4. Hallucinations within the past 24 hours 5. Acute intervention needed for co occurring medical disorder 6. Acute intervention needed for co occurring psychiatric disorder 7. Severe withdrawal that cannot be handled at a lower level of care (continued vomiting, continued diarrhea, abnormal vital signs) requiring intravenous medication and/or fluids 8. Admitting History and Physical - Past Medical History RN HEMATOLOGY: Yes: Migraine ("i used to be on Imitrex") Cardiovascular: Yes: HTN, Hyperlipdemia, Murmur Pulmonary: Yes: Asthma, COPD Gastrointestinal: Yes: GERD Renal/: Yes: UTI (in the past) ...LMP: 08/12/13 Infectious Disease: Yes: HIV, STD's (Hx syphilis/Gonorrhea at 15) Psych: Yes: Addictions, Depression Musculoskeletal: Yes: Chronic low back pain, Osteoarthritis (hip) ENT: Yes: Allergic Rhinitis (on flonase), Other Dermatology: Yes: Other (tinea pedis) - Smoking History Smoking history: Current every day smoker Have you smoked in the past 12 months: Yes Aproximately how many cigarettes per day: 30 - Alcohol/Substance Use Hx Alcohol Use: Yes Number of Drinks Daily: 3 (3 cobra/1-2 pt vodka) History of Substance Use: reports: Cocaine Date of Last Use: 04/16/19 (After d/c from [facility] today) - Social History ADL: Independent History of Recent Travel: No Admission ROS S - HPI Chief Complaint: "I feel myself falling, worse than before. I don't want to wind up on the streets." Allergies/Adverse Reactions: Allergies Allergy/AdvReac Type Severity Reaction Status Date / Time lisinopril Allergy Severe Swelling Verified 12/31/19 09:40 turkey Allergy Severe Rash Verified 12/31/19 09:40 Fish Containing Products Allergy Rash Verified 12/31/19 09:40 erythromycin base AdvReac Severe Rash Verified 12/31/19 09:40 sulfamethoxazole AdvReac Severe Rash Verified 12/31/19 09:40 [From Bactrim] trimethoprim [From Bactrim] AdvReac Severe Rash Verified 12/31/19 09:40 History of Present Illness: 54 year old female with history of alcohol dependence with withdrawal, cocaine use disorder, nicotine dependence, seeking detox from alcohol. - Substance Use History Alcohol Substance amount: 2-3 pints vodka Frequency of use: Daily Substance route: Oral Date of Last Use: 12/31/19 (1 beer started age 16) Patient blacked out yesterday and endorses the need of an eye grinder hand daily Cocaine-Crack Substance amount: $200-300 Frequency of use: Daily Substance route: Smoking Date of Last Use: 12/30/19 (started age 18) Nicotine Substance amount: 1.5 packs Frequency of use: Daily Substance route: Smoking Date of Last Use: 12/31/19 (started age 14) PMH: HIV< COPD, HTN, Asthma Psurg: Ectopic Psych: Depression, Anxiety Zoloft Seroquel She is living in family alf in [place]. No legal issues pending. SCOT=0.008 CIWA=22 Patient meets criteria for detox as she has relapsed in past and is at high risk for sequelae from medical and psychiatric co-morbidities. Exam Limitations: No Limitations - Ebola screening Have you traveled outside of the country in the last 21 days: No Have you had contact with anyone from an Ebola affected area: No Have you been sick,other than usual withdrawal symptoms: No Do you have a fever: No - Review of Systems Constitutional: Chills, Diaphoresis, Unintentional Wgt. Loss EENT: reports: No Symptoms Reported Respiratory: reports: No Symptoms reported Cardiac: reports: No Symptoms Reported GI: reports: No Symptoms Reported : reports: No Symptoms Reported Musculoskeletal: reports: No Symptoms Reported Integumentary: reports: No Symptoms Reported Neuro: reports: Tingling, Tremors, Weakness Endocrine: reports: No Symptoms Reported Hematology: reports: No Symptoms Reported Psychiatric: reports: Judgement Intact, Mood/Affect Appropiate, Orientated x3, Agitated, Anxious Other Systems: Reviewed and Negative Patient History - Patient Medical History Hx Anemia: No Hx Asthma: Yes (ON PUMPS) Hx Chronic Obstructive Pulmonary Disease (COPD): No Hx Cancer: No Hx Cardiac Disorders: No Hx Congestive Heart Failure: No Hx Hypertension: Yes (ON MEDS) Hx Hypercholesterolemia: Yes (on med) Hx Pacemaker: No HX Cerebrovascular Accident: No Hx Seizures: No Hx Dementia: No Hx Diabetes: No Hx Gastrointestinal Disorders: Yes (Hx of acid reflux) Hx Liver Disease: No Hx Genitourinary Disorders: No Hx Sexually Transmitted Disorders: Yes (HIV POS) Hx Renal Disease (ESRD): No Hx Thyroid Disease: No Hx Human Immunodeficiency Virus (HIV): Yes (ON BICTARVY ,CD4-= 206 02/27/19) Hx Hepatitis C: No Hx Depression: Yes Hx Suicide Attempt: No Hx Bipolar Disorder: Yes (on meds) Hx Schizophrenia: No - Patient Surgical History Past Surgical History: Yes Hx Neurologic Surgery: No Hx Cataract Extraction: No Hx Cardiac Surgery: No Hx Lung Surgery: No Hx Breast Surgery: No Hx Breast Biopsy: No Hx Abdominal Surgery: No Hx Appendectomy: No Hx Cholecystectomy: No Hx Genitourinary Surgery: No Hx Section: No Hx Orthopedic Surgery: No Hx Hysterectomy: No Other Surgical History: Ectopic at age 35 Anesthesia Reaction: No - PPD History Previous Implant?: Yes Documented Results: Negative w/proof Implanted On Prior [facility] Admission?: Yes Date: 03/01/19 Results: 0mm PPD to be Administered?: No - Reproductive History Last Menstrual Period: 08/12/13 - Smoking Cessation Smoking history: Current every day smoker Have you smoked in the past 12 months: Yes Aproximately how many cigarettes per day: 30 Cigars Per Day: 0 Hx Chewing Tobacco Use: No Initiated information on smoking cessation: Yes 'Breaking Loose' booklet given: 12/31/19 - Substances abused Alcohol Substance route: Oral Frequency: Daily Amount used: 2-3 pint vodka Age of first use: 16 Date of last use: 12/30/19 Crack Substance route: Smoking Frequency: Daily Amount used: $200-300 Age of first use: 18 Date of last use: 12/30/19 Admission Physical Exam BHS - Vital Signs Vital Signs: Vital Signs - 24 hr 12/31/19 09:41 Temperature 97.2 F L Pulse Rate 86 Respiratory 14 Rate Blood Pressure 175/118 H - Physical General Appearance: Yes: Thin, Tremorous, Irritable, Sweating, Anxious HEENTM: Yes: EOMI, Hearing grossly Normal, Normal ENT Inspection, Normocephalic, Normal Voice, DAIANA, Pharynx Normal, Tm's normal Respiratory: Yes: Chest Non-Tender, Lungs Clear, Normal Breath Sounds, No Respiratory Distress, No Accessory Muscle Use Neck: Yes: No masses,lesions,Nodules, Supple, Trachea in good position Breast: Yes: Breast Exam Deferred Cardiology: Yes: Regular Rhythm, Regular Rate, S1, S2 Abdominal: Yes: Normal Bowel Sounds, Non Tender, Flat, Soft, Surgical Scar Genitourinary: Yes: Within Normal Limits Back: Yes: Normal Inspection Musculoskeletal: Yes: full range of Motion, Gait Steady, Pelvis Stable Extremities: Yes: Normal Capillary Refill, Normal Inspection, Normal Range of Motion, Non-Tender Neurological: Yes: remote inpatient coder II-XII NML intact, Fully Oriented, Alert, Motor Strength 5/5, Normal Mood/Affect, Normal Response Integumentary: Yes: Normal Color, Dry, Warm Lymphatic: Yes: Within Normal Limits - Diagnostic (1) Alcohol dependence with uncomplicated withdrawal Current Visit: Yes Status: Acute (2) Cocaine abuse Current Visit: Yes Status: Acute (3) Substance-induced anxiety disorder Current Visit: Yes Status: Acute (4) Substance-induced sleep disorder Current Visit: Yes Status: Acute (5) Asthma Current Visit: Yes Status: Chronic Qualifiers: Asthma severity: mild Asthma persistence: intermittent Asthma complication type: uncomplicated Qualified Code(s): J45.20 - Mild intermittent asthma, uncomplicated (6) Back pain Current Visit: Yes Status: Chronic Qualifiers: Chronicity: chronic Back pain laterality: bilateral Sciatica presence: without sciatica (7) COPD (chronic obstructive pulmonary disease) Current Visit: Yes Status: Chronic Qualifiers: COPD type: emphysema Emphysema type: other Qualified Code(s): J43.8 - Other emphysema (8) Dyslipidemia Current Visit: Yes Status: Chronic (9) Essential hypertension Current Visit: Yes Status: Chronic (10) GERD (gastroesophageal reflux disease) Current Visit: Yes Status: Chronic Qualifiers: Esophagitis presence: without esophagitis Qualified Code(s): K21.9 - Gastro-esophageal reflux disease without esophagitis (11) HIV (human immunodeficiency virus infection) Current Visit: Yes Status: Chronic Qualifiers: HIV symptom status: asymptomatic Qualified Code(s): Z21 - Asymptomatic human immunodeficiency virus [HIV] infection status (12) History of bipolar disorder Current Visit: Yes Status: Chronic (13) History of syphilis Current Visit: Yes Status: Chronic Comment: states treated (14) Nicotine dependence Current Visit: Yes Status: Chronic Qualifiers: Nicotine product type: cigarettes Substance use status: uncomplicated Qualified Code(s): F17.210 - Nicotine dependence, cigarettes, uncomplicated Screened but not Admitted - Documentation of Visit Screened but not Admitted: No Breathalyzer - Breathalyzer Breathalyzer: 0.008 Vital Signs - Vital Signs Vital signs refused: No Temperature: 97.2 F Pulse Rate: 86 Respiratory Rate: 14 Blood Pressure: 175/118 BP Location: Left Arm Blood Pressure position: Sitting - Height Height: 5 ft 7 in - Weight Weight: 180 lb Weight measurement method: Standing scale - BMI Body Mass Index (BMI): 28.1 - Bowel Function Bowel Movement: No Urine Drug Screen - Test Device Lot number: [id number] Expiration date: 07/20/21 - Control Is test valid?: Yes - Results Drug screen NEGATIVE: No Urine drug screen results: [facility]-Cocaine Inpatient Rehab Admission - Rehab Decision to Admit Inpatient rehab admission?: No
[2019-12-31] MEDS ORDERED: MENTHOL/PHENOL 1 EACH UD MM PRN (10:03)
[2019-12-31] MEDS ORDERED: MAG HYDROX/AL HYDROX/SIMETH 30 ML UNIT-DOSE CUP PO PRN (10:03)
[2019-12-31] MEDS ORDERED: METHOCARBAMOL 500 MG TABLET PO PRN (10:03)
[2019-12-31] MEDS ORDERED: chlordiazePOXIDE HCL 25 MG CAPSULE PO PRN (10:03)
[2019-12-31] MEDS ORDERED: BISMUTH SUBSALICYLATE 524 MG/30 ML UD PO PRN (10:03)
[2019-12-31] MEDS ORDERED: MAGNESIUM CITRATE 300 ML BOTTLE PO PRN (10:03)
[2019-12-31] MEDS ORDERED: ONDANSETRON *ODT* 4 MG TABLET SL PRN (10:03)
[2019-12-31] MEDS ORDERED: MAGNESIUM HYDROX 2400MG/30ML ORAL SUSPENSION 30 ML CUP PO PRN (10:03)
[2019-12-31] MEDS ORDERED: ACETAMINOPHEN 325 MG TABLET (FP) PO PRN ×2 (10:03)
[2019-12-31] MEDS: PRENATAL VITAMINS W/ FOLIC ACID TABLET (FP) PO SCH (10:49)
[2019-12-31] MEDS: chlordiazePOXIDE HCL 25 MG CAPSULE PO SCH ×3 (10:49→22:33)
[2019-12-31] MEDS: NICOTINE 7 MG/24 HOURS TOPICAL PATCH TD SCH (10:49)
[2019-12-31] MEDS ORDERED: ALBUTEROL SO4 HFA INHALER IH PRN (10:54)
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
[2019-12-31] MEDS: ASPIRIN COATED 81 MG TABLET.EC PO SCH (11:47)
[2019-12-31] MEDS: SERTRALINE HCL 50 MG TABLET (FP) PO SCH (11:47)
[2019-12-31] MEDS: HYDROCHLOROTHIAZIDE 25 MG TABLET (FP) PO SCH (11:47)
[2019-12-31] MEDS: amLODIPine BESYLATE 10 MG TABLET (FP) PO SCH (11:48)
[2019-12-31] MEDS ORDERED: hydrOXYzine PAMOATE 25 MG CAPSULE (FP) PO PRN (12:23)
--- OUTSIDE RECORDS SUMMARY | 2019-12-31 13:30 | XMS ---
:1965 Author Organization [facility] Care Team Providers Name Role Phone JES MOORE MD Unavailable Unavailable MD TUNDE Unavailable Unavailable MD CHAS Unavailable Unavailable Re-disclosure Warning The records that you are about to access may contain information from federally- assisted alcohol or drug abuse programs. If such information is present, then the following federally mandated warning applies: This information has been disclosed to you from records protected by federal confidentiality rules (42 CFR part 2). The federal rules prohibit you from making any further disclosure of this information unless further disclosure is expressly permitted by the written consent of the person to whom it pertains or as otherwise permitted by 42 CFR part 2. A general authorization for the release of medical or other information is NOT sufficient for this purpose. The Federal rules restrict any use of the information to criminally investigate or prosecute any alcohol or drug abuse patient.The records that you are about to access may contain highly sensitive health information, the redisclosure of which is protected by Article 27-F of the [facility] Public Health law. If you continue you may haveaccess to information: Regarding HIV / AIDS; Provided by facilities licensed or operated by the [facility] Office of Mental Health; or Provided by the [facility] Office for People With Developmental Disabilities. If such information is present, then the following [facility] mandated warning applies: This information has been disclosed to you from confidential records which are protected by state law. State law prohibits you from making any further disclosure of this information without the specific written consent of the person to whom it pertains, or as otherwise permitted by law. Any unauthorized further disclosure in violation of state law may result in a fine or long-term sentence or both. A general authorization for the release of medical or other information is NOT sufficient authorization for further disclosure. Encounters Encounter Providers Location Date Indications Data Source(s ) Inpatient Attender: PATRICIA TYLER1D 06/24/2018 [facility] 02:06:00 PM [facility] EDT - 06/29/2018 10:11:00 PM EDT Outpatient Attender: PATRICIA SCHOFIELD 06/24/2018 [facility]BNS[facility]ANY[facility]dmitter 12:29:00 PM Hos [facility] : [facility] EDT - 06/24/2018 11:08:00 AM EDT Medications Medication Brand Start Product Dose Route Administrative Pharmacy [facility] Indications Reaction Description Data Name Date Form Instructions Instructions Source(s) quetiapine SEROqu ORAL complet [facility] 300 MG Oral 2018 [facility] 300 MG [facility]AL [facility] 300 [facility] 12[facility]Seroquel[facility] ORAL 00 AM Tablet EDT Sertraline Zoloft ORAL complet Zoloft - 100 [facility] 100 MG Oral - 100 2018 [facility] MG ORAL [facility] 12:[facility]: t [facility] [Zoloft] ORAL 00 AM Tablet EDT quetiapine SEROqu ORAL complet [facility] 300 MG Oral 2018 [facility] 300 MG [facility]AL [facility] 300 [facility] 12:00: [facility] [Seroquel] ORAL 00 AM Tablet EDT quetiapine SEROqu ORAL complet [facility] 300 MG Oral 2018 [facility] 300 MG [facility]AL [facility] 300 MG 12:00: [facility] [Seroquel] ORAL 00 AM Tablet EDT [facility] - ORAL complet [facility] 150 MG-150 2018 Table ed 150 MG-150 [facility] MG-200 12:00: t MG-200 MG-10 Hos pital MG-10 MG 00 AM MG ORAL ORAL Tablet EDT Tablet Sertraline Zoloft ORAL complet Zoloft - 100 [facility] 100 MG Oral - 100 2018 Table ed MG ORAL [facility] Tablet MG 12:00: t [facility]t Hospital [Zoloft] ORAL 00 AM Tablet EDT Insurance Providers Payer name Policy type Policy ID Covered Covered democrat's Policy P jesus / Coverage democrat ID relationship to Diaz Inf ormation type diaz HEALTH FIRST [id number] SP [id number] Z HEALTH FIRST [id number] SP [id number] Z MEDICAID IN [id number] Self [id number] Z PSYCH [facility] [id number] Self [id number] FIRST SELF PAY 0000 Self 0000 MEDICAID INP [id number] Self [id number] Z REHAB [facility] [id number] Self [id number] FIRST Problems, Conditions, and Diagnoses Code Display Name Description Problem Type Effective Data Dates Source(s) [id number] Cocaine abuse Cocaine abuse Complaint 06/05/1989 [facility] (disorder) 12:00:00 PM [facility] [id number] Cocaine abuse Cocaine abuse Complaint 06/05/1989 [facility] (disorder) 12:00:00 [facility] [id number] Alcohol abuse Alcohol abuse Complaint 06/05/1981 [facility] (disorder) 12:00:00 PM [facility] [id number] Alcohol abuse Alcohol abuse Complaint 06/05/1981 [facility] (disorder) 12:00:00 PM [facility] F10.20 Alcohol Alcohol Diagnosis 07/19/2015 [facility] dependence, dependence, 01:24:00 PM [facility] uncomplicated uncomplicated EDT Hospital Results ID Date Data Source [id number] 09/10/2019 02:00:00 PM EDT [facility] Name Value Range Interpretation Description Data Sup porting Code Source(s) Document(s ) SARS [facility] CORONAVIRUS 2 RNA This lab was ordered by [facility] Ac ct Bill Inter and reported by [facility]. ID Date Data Source [id number] 09/09/2019 08:31:00 PM EDT [facility] Name Value Range Interpretation Code Description Data Radha rce(s) Supporting Document(s ) SARS-CoV-2 [facility] RNA Resp Ql RIC+probe This lab was ordered by [facility] and repo rted by [facility]. Procedure Vital Signs ID Date Data Source UNK Name Value Range Interpretation Code Description Data Source(s) Heart rate 78 bpm 78 bpm [facility] Body temperature 97.2 Fahrenheit 97.2 Fahrenhei t [facility] Diastolic blood 73 mmHg 73 mmHg [facility] Systolic blood 106 mmHg 106 mmHg [facility] Respiratory rate 18 bpm 18 bpm [facility] Body weight 193 lbs 193 lbs [facility] Diastolic blood 90 mmHg 90 mmHg [facility] Systolic blood 142 mmHg 142 mmHg [facility] Respiratory rate 18 bpm 18 bpm [facility] Heart rate 88 bpm 88 bpm [facility] Body temperature 97.6 Fahrenheit 97.6 Fahrenhei t [facility] Diastolic blood 96 mmHg 96 mmHg [facility] Systolic blood 150 mmHg 150 mmHg [facility] Respiratory rate 18 bpm 18 bpm [facility] Heart rate 87 bpm 87 bpm [facility] Body temperature 97.2 Fahrenheit 97.2 Fahrenhei t [facility] Body weight 156 lbs 156 lbs [facility] Diastolic blood 98 mmHg 98 mmHg [facility] Systolic blood 145 mmHg 145 mmHg [facility] Respiratory rate 18 bpm 18 bpm [facility] Heart rate 82 bpm 82 bpm [facility] Body temperature 97.0 Fahrenheit 97.0 Fahrenhei t [facility] Diastolic blood 86 mmHg 86 mmHg [facility] Systolic blood 120 mmHg 120 mmHg [facility] Respiratory rate 18 bpm 18 bpm [facility] Heart rate 86 bpm 86 bpm [facility] Body temperature 97.8 Fahrenheit 97.8 Fahrenhei t [facility] Diastolic blood 80 mmHg 80 mmHg [facility] Systolic blood 120 mmHg 120 mmHg [facility] Respiratory rate 18 bpm 18 bpm [facility] Heart rate 85 bpm 85 bpm [facility] Body temperature 98.4 Fahrenheit 98.4 Fahrenhei t [facility] Diastolic blood 80 mmHg 80 mmHg [facility] Systolic blood 130 mmHg 130 mmHg [facility] Respiratory rate 18 bpm 18 bpm [facility] Heart rate 76 bpm 76 bpm [facility] Body temperature 97.3 Fahrenheit 97.3 Fahrenhei t [facility] Body weight 152 lbs 152 lbs [facility] Diastolic blood 88 mmHg 88 mmHg [facility] Systolic blood 127 mmHg 127 mmHg [facility] Respiratory rate 18 bpm 18 bpm [facility] Heart rate 84 bpm 84 bpm [facility] Diastolic blood 77 mmHg 77 mmHg [facility] Systolic blood 130 mmHg 130 mmHg [facility] Respiratory rate 18 bpm 18 bpm [facility] Heart rate 90 bpm 90 bpm [facility] Body temperature 98.9 [facility] 78 [facility] 78 mmHg [facility] Systolic blood 140 mmHg 140 mmHg [facility] Respiratory rate 18 bpm 18 bpm [facility] Heart rate 96 bpm 96 bpm [facility] Body temperature 97.2 [facility] 97.2 [facility] Di[facility] blood 97 mmHg 97 mmHg [facility] Systolic blood 146 mmHg 146 mmHg [facility] Respiratory rate 14 bpm 14 bpm [facility] Heart rate 95 bpm 95 bpm [facility] Body temperature 96.0 Fahrenheit 96.0 [facility]
[2019-12-31] MEDS ORDERED: hydrOXYzine PAMOATE 25 MG CAPSULE (FP) PO SCH (14:00)
[2019-12-31 14:02] LABS: HEMATOCRIT 41.3 % (32.4-45.2); HEMOGLOBIN 13.7 GM/dL (10.7-15.3); MCH 28.8 pg (25.7-33.7); MCHC 33.3 g/dl (32.0-36.0); MEAN CELL VOLUME 86.6 fl (80-96); MEAN PLT VOLUME 8.6 fl (7.5-11.1); PLATELET COUNT 224 K/MM3 (134-434); RBC 4.77 M/mm3 (3.60-5.2); RDW 14.6 % (11.6-15.6); WHITE BLOOD COUNT 3.5 K/mm3 (4.0-10.0)
[2019-12-31 14:20] LABS: ALBUMIN 3.7 g/dl (3.4-5.0); BILIRUBIN,TOTAL 0.8 mg/dL (0.2-1); BLOOD UREA NITROGEN 14.5 mg/dL (7-18); CALCIUM 8.9 mg/dL (8.5-10.1); CREATININE 0.9 mg/dL (0.55-1.3); POTASSIUM 3.9 mmol/L (3.5-5.1); TOT PROT 8.2 g/dl (6.4-8.2)
[2019-12-31] MEDS: CLOTRIMAZOLE 1% CREAM 15 GM TUBE TP SCH ×2 (14:24→22:44)
[2019-12-31] MEDS: NICOTINE POLACRILEX 2 MG GUM BUC PRN (17:07)
--- OUTSIDE RECORDS SUMMARY | 2019-12-31 18:43 | XMS ---
[...] is protected by Article 27-F of the [facility] Public Health law. If you continue you may haveaccess to information: Regarding HIV / AIDS; Provided by facilities licensed or operated by the [facility] Office of Mental Health; or Provided by the [facility] Office for People With Developmental Disabilities. If such information is present, then the following [facility] mandated warning applies: This information has been [...] law may result in a fine or fci sentence or both. A general authorization for [...] Brand Start Product Dose Route Administrative Pharmacy [facility] Indications Reaction Description Data Name Date Form [...] name Policy type Policy ID Covered Covered alliance party's Policy P jesus / Coverage alliance party ID relationship to Diaz Inf ormation type diaz HEALTH FIRST [id number] SP [id number] Z HEALTH FIRST [id number] SP [id number] Z MEDICAID IN [id number] Self [id number] Z PSYCH [facility] [id number] Self [id number] FIRST SELF PAY 0000 Self 0000 MEDICAID INP [id number] Self [id number] Z REHAB [facility] [id number] Self [id number] FIRST Problems, Conditions, and Diagnoses Code Display Name Description Problem Type Effective Data Dates Source(s) 39001316 Cocaine abuse Cocaine abuse Complaint 06/05/1989 [facility] (disorder) 12:00:00 PM [facility] [id number] Cocaine abuse Cocaine abuse Complaint 06/05/1989 [facility] (disorder) 12:00:00 [facility] [id number] Alcohol abuse Alcohol abuse Complaint 06/05/1981 [facility] (disorder) 12:00:00 PM [facility] [id number] Alcohol abuse Alcohol abuse Complaint 06/05/1981 [facility] (disorder) 12:00:00 PM [facility] F10.20 Alcohol Alcohol Diagnosis 07/19/2015 [facility] dependence, dependence, 01:24:00 PM [facility] uncomplicated uncomplicated EDT Hospital Results ID Date Data Source [id number] 09/10/2019 02:00:00 PM EDT [facility] Name Value Range Interpretation Description Data Sup porting Code Source(s) Document(s ) SARS [facility] CORONAVIRUS 2 RNA This lab was ordered by [facility] Ac ct Bill Inter and reported by [facility]. ID Date Data Source [id number] 09/09/2019 08:31:00 PM EDT [facility] Name Value Range Interpretation Code Description Data Radha rce(s) Supporting Document(s ) SARS-CoV-2 [facility] RNA Resp Ql RIC+probe This lab was ordered by [facility] and repo rted by [facility]. Procedure Vital Signs ID Date Data Source UNK Name Value Range Interpretation Code Description Data Source(s) Heart rate 78 bpm 78 bpm [facility] Body temperature 97.2 Fahrenheit 97.2 Fahrenhei t [facility] Diastolic blood 73 mmHg 73 mmHg [facility] Systolic blood 106 mmHg 106 mmHg [facility] Respiratory rate 18 bpm 18 bpm [facility] Body weight 193 lbs 193 lbs [facility] Diastolic blood 90 mmHg 90 mmHg [facility] Systolic blood 142 mmHg 142 mmHg [facility] Respiratory rate 18 bpm 18 bpm [facility] Heart rate 88 bpm 88 bpm [facility] Body temperature 97.6 Fahrenheit 97.6 Fahrenhei t [facility] Diastolic blood 96 mmHg 96 mmHg [facility] Systolic blood 150 mmHg 150 mmHg [facility] Respiratory rate 18 bpm 18 bpm [facility] Heart rate 87 bpm 87 bpm [facility] Body temperature 97.2 Fahrenheit 97.2 Fahrenhei t [facility] Body weight 156 lbs 156 lbs [facility] Diastolic blood 98 mmHg 98 mmHg [facility] Systolic blood 145 mmHg 145 mmHg [facility] Respiratory rate 18 bpm 18 bpm [facility] Heart rate 82 bpm 82 bpm [facility] Body temperature 97.0 Fahrenheit 97.0 Fahrenhei t [facility] Diastolic blood 86 mmHg 86 mmHg [facility] Systolic blood 120 mmHg 120 mmHg [facility] Respiratory rate 18 bpm 18 bpm [facility] Heart rate 86 bpm 86 bpm [facility] Body temperature 97.8 Fahrenheit 97.8 Fahrenhei t [facility] Diastolic blood 80 mmHg 80 mmHg [facility] Systolic blood 120 mmHg 120 mmHg [facility] Respiratory rate 18 bpm 18 bpm [facility] Heart rate 85 bpm 85 bpm [facility] Body temperature 98.4 Fahrenheit 98.4 Fahrenhei t [facility] Diastolic blood 80 mmHg 80 mmHg [facility] Systolic blood 130 mmHg 130 mmHg [facility] Respiratory rate 18 bpm 18 bpm [facility] Heart rate 76 bpm 76 bpm [facility] Body temperature 97.3 Fahrenheit 97.3 Fahrenhei t [facility] Body weight 152 lbs 152 lbs [facility] Diastolic blood 88 mmHg 88 mmHg [facility] Systolic blood 127 mmHg 127 mmHg [facility] Respiratory rate 18 bpm 18 bpm [facility] Heart rate 84 bpm 84 bpm [facility] Diastolic blood 77 mmHg 77 mmHg [facility] Systolic blood 130 mmHg 130 mmHg [facility] Respiratory rate 18 bpm 18 bpm [facility] Heart rate 90 bpm 90 bpm [facility].9 [facility] 78 mmHg 78 mmHg [facility] Systolic blood 140 mmHg 140 mmHg [facility] Respiratory rate 18 bpm 18 bpm [facility] Heart rate 96 bpm 96 bpm [facility] Body temperature 97.2 [facility] Di[facility] blood 97 mmHg 97 mmHg [facility] Systolic blood 146 mmHg 146 mmHg [facility] Respiratory rate 14 bpm 14 bpm [facility] Heart rate 95 bpm 95 bpm [facility] Body temperature 96.0 [facility] 96.0 [facility]
[2019-12-31] MEDS: QUEtiapine FUMARATE 300 MG TABLET PO SCH ×2 (21:12→22:45)
[2019-12-31] MEDS ORDERED: QUEtiapine FUMARATE 300 MG TABLET PO SCH (22:00)
[2019-12-31] MEDS: ATORVASTATIN CA 20 MG TABLET (FP) PO SCH (22:33)
[2019-12-31] MEDS: THIAMINE HCL 100 MG TABLET (FP) PO SCH (22:33)
[2019-12-31] MEDS: MELATONIN 5 MG TABLETS PO SCH (22:44)
[2019-12-31] MEDS: FLUTICASONE PROP 0.05% 16 GM NASAL SPRAY NS SCH (22:44)
[2020-01-01] MEDS: chlordiazePOXIDE HCL 25 MG CAPSULE PO SCH ×3 (05:59→18:17)
[2020-01-01] MEDS: ASPIRIN COATED 81 MG TABLET.EC PO SCH (10:00)
[2020-01-01] MEDS: FLUTICASONE PROP 0.05% 16 GM NASAL SPRAY NS SCH (10:01)
[2020-01-01] MEDS: HYDROCHLOROTHIAZIDE 25 MG TABLET (FP) PO SCH (10:01)
[2020-01-01] MEDS: CLOTRIMAZOLE 1% CREAM 15 GM TUBE TP SCH (10:01)
[2020-01-01] MEDS: PRENATAL VITAMINS W/ FOLIC ACID TABLET (FP) PO SCH (10:02)
[2020-01-01] MEDS: NICOTINE 7 MG/24 HOURS TOPICAL PATCH TD SCH (10:02)
[2020-01-01] MEDS: amLODIPine BESYLATE 10 MG TABLET (FP) PO SCH (10:02)
[2020-01-01] MEDS: TIOTROPIUM BROMIDE 2.5 MCG (SPIRIVA) RESPIMAT INHALER IH SCH (10:02)
[2020-01-01] MEDS: SERTRALINE HCL 50 MG TABLET (FP) PO SCH (10:02)
[2020-01-01] MEDS: NICOTINE POLACRILEX 2 MG GUM BUC PRN (10:02)
[2020-01-01] MEDS: PANTOPRAZOLE 20 MG TABLET PO SCH (10:02)
--- NOTE | 2020-01-01 10:29 | PN ---
[facility] CIWA - CIWA Score Nausea/Vomitin-No Nausea/No Vomiting Muscle Tremors: 3 Anxiety: 3 Agitation: 2 Paroxysmal Sweats: 3 Orientation: 0-Oriented Tacttile Disturbances: 0-None Auditory Disturbances: 1-Very Mild Visual Disturbances: 0-None Headache: 0-None Present CIWA-Ar Total Score: 12 S Progress Note (SOAP) Subjective: Complaints of tremors, sweats, anxiety,agitation and auditory disturbances Objective: 01/01/20 10:27 Vital Signs 01/01/20 01/01/20 05:54 09:06 Temperature 96.9 F L 99.3 F Pulse Rate 66 79 Respiratory 16 18 Rate Blood Pressure 159/99 138/86 O2 Sat by Pulse 95 97 Oximetry (%) Laboratory Last Values WBC 3.5 K/mm3 (4.0-10.0) L 12/31/19 10:20 RBC 4.77 M/mm3 (3.60-5.2) 12/31/19 10:20 Hgb 13.7 GM/dL (10.7-15.3) 12/31/19 10:20 Hct 41.3 % (32.4-45.2) 12/31/19 10:20 MCV 86.6 fl (80-96) 12/31/19 10:20 MCH 28.8 pg (25.7-33.7) 12/31/19 10:20 MCHC 33.3 g/dl (32.0-36.0) 12/31/19 10:20 RDW 14.6 % (11.6-15.6) 12/31/19 10:20 Plt Count 224 K/MM3 (134-434) 12/31/19 10:20 MPV 8.6 fl (7.5-11.1) 12/31/19 10:20 Sodium 141 mmol/L (136-145) 12/31/19 10:20 Potassium 3.9 mmol/L (3.5-5.1) 12/31/19 10:20 Chloride 108 mmol/L (98-107) H 12/31/19 10:20 Carbon Dioxide 28 mmol/L (21-32) 12/31/19 10:20 Anion Gap 5 MMOL/L (8-16) L 12/31/19 10:20 BUN 14.5 mg/dL (7-18) 12/31/19 10:20 Creatinine 0.9 mg/dL (0.55-1.3) 12/31/19 10:20 Est GFR (CKD-EPI)AfAm 84.01 12/31/19 10:20 Est GFR (CKD-EPI)NonAf 72.49 12/31/19 10:20 Random Glucose 62 mg/dL (74-106) L 12/31/19 10:20 Calcium 8.9 mg/dL (8.5-10.1) 12/31/19 10:20 Total Bilirubin 0.8 mg/dL (0.2-1) 12/31/19 10:20 AST 27 U/L (15-37) 12/31/19 10:20 ALT 22 U/L (13-61) 12/31/19 10:20 Alkaline Phosphatase 100 U/L (45-117) 12/31/19 10:20 Total Protein 8.2 g/dl (6.4-8.2) 12/31/19 10:20 Albumin 3.7 g/dl (3.4-5.0) 12/31/19 10:20 Syphilis Serology Reactive (NONREACTIVE) A* 12/31/19 10:20 Labs noted with reactive syphilis serology, pending titer. 01/01/20 14:22 Assessment: 01/01/20 10:29 Alert and oriented x 3, in no acute distress. Full ROM, ambulating in the unit without assistance. Skin was to touch. Withdrawal symptoms. Reactive serology pending titer, patient was treated in the past. Encouraged to follow up with her primary care provider upon discharge. 01/01/20 14:23 Plan: Continue detox protocol.
[2020-01-01] MEDS: BICTEGRAV/EMTRICIT/TENOFOV (BIKTARVY) 50-200-25 MG TABLET PO SCH (15:17)
[2020-01-01] MEDS: IBUPROFEN 400 MG TABLET (FP) PO PRN ×2 (15:18→19:46)
[2020-01-01] MEDS: QUEtiapine FUMARATE 300 MG TABLET PO SCH (21:22)
[2020-01-01] MEDS: ATORVASTATIN CA 20 MG TABLET (FP) PO SCH (23:59)
[2020-01-02] MEDS: chlordiazePOXIDE HCL 25 MG CAPSULE PO SCH ×5 (07:36→22:12)
[2020-01-02] MEDS: BICTEGRAV/EMTRICIT/TENOFOV (BIKTARVY) 50-200-25 MG TABLET PO SCH (07:38)
[2020-01-02] MEDS: ASPIRIN COATED 81 MG TABLET.EC PO SCH (10:43)
[2020-01-02] MEDS: FLUTICASONE PROP 0.05% 16 GM NASAL SPRAY NS SCH ×3 (10:43→22:14)
[2020-01-02] MEDS: amLODIPine BESYLATE 10 MG TABLET (FP) PO SCH (10:44)
[2020-01-02] MEDS: PANTOPRAZOLE 20 MG TABLET PO SCH (10:44)
[2020-01-02] MEDS: PRENATAL VITAMINS W/ FOLIC ACID TABLET (FP) PO SCH (10:44)
[2020-01-02] MEDS: CLOTRIMAZOLE 1% CREAM 15 GM TUBE TP SCH ×3 (10:44→22:14)
[2020-01-02] MEDS: HYDROCHLOROTHIAZIDE 25 MG TABLET (FP) PO SCH (10:44)
[2020-01-02] MEDS: SERTRALINE HCL 50 MG TABLET (FP) PO SCH (10:44)
[2020-01-02] MEDS: TIOTROPIUM BROMIDE 2.5 MCG (SPIRIVA) RESPIMAT INHALER IH SCH (10:44)
[2020-01-02] MEDS: NICOTINE 7 MG/24 HOURS TOPICAL PATCH TD SCH (10:44)
--- NOTE | 2020-01-02 17:58 | PN ---
S CIWA - CIWA Score Nausea/Vomitin-Mild Nausea/No Vomiting Muscle Tremors: 2 Anxiety: 2 Agitation: 2 Paroxysmal Sweats: 2 Orientation: 0-Oriented Tacttile Disturbances: 0-None Auditory Disturbances: 0-None Visual Disturbances: 0-None Headache: 0-None Present CIWA-Ar Total Score: 9 [facility] Progress Note (SOAP) Subjective: Anxious Objective: 01/02/20 17:56 Last Vital Signs Temp Pulse Resp BP Pulse Ox 97.5 F L 71 18 152/85 100 01/02/20 12:43 01/02/20 12:43 01/02/20 12:43 01/02/20 12:43 01/02/20 08:58 Elevated b/p: has htn, on med Laboratory Tests 12/31/19 12/31/19 12/31/19 10:20 10:20 10:20 WBC 3.5 L RBC 4.77 Hgb 13.7 Hct 41.3 MCV 86.6 MCH 28.8 MCHC 33.3 RDW 14.6 Plt Count 224 MPV 8.6 Sodium 141 Potassium 3.9 Chloride 108 H Carbon Dioxide 28 Anion Gap 5 L BUN 14.5 Creatinine 0.9 Est GFR (CKD-EPI)AfAm 84.01 Est GFR (CKD-EPI)NonAf 72.49 Random Glucose 62 L Calcium 8.9 Total Bilirubin 0.8 AST 27 ALT 22 Alkaline Phosphatase 100 Total Protein 8.2 Albumin 3.7 Syphilis Serology Reactive A* RPR Titer COVID-19 (RIC) 12/31/19 12/31/19 10:20 10:25 WBC RBC Hgb Hct MCV MCH MCHC RDW Plt Count MPV Sodium Potassium Chloride Carbon Dioxide Anion Gap BUN Creatinine Est GFR (CKD-EPI)AfAm Est GFR (CKD-EPI)NonAf Random Glucose Calcium Total Bilirubin AST ALT Alkaline Phosphatase Total Protein Albumin Syphilis Serology RPR Titer Reactive 1:1 H COVID-19 (RIC) Not detected Labs reviewed (has h/o syphilis, treated) Assessment: 01/02/20 17:57 Withdrawal sxs Plan: Continue detox Encourage PO water intake
[2020-01-02] MEDS: ATORVASTATIN CA 20 MG TABLET (FP) PO SCH (22:12)
[2020-01-02] MEDS: QUEtiapine FUMARATE 300 MG TABLET PO SCH (22:12)
[2020-01-02] MEDS: THIAMINE HCL 100 MG TABLET (FP) PO SCH ×2 (22:14)
[2020-01-02] MEDS: MELATONIN 5 MG TABLETS PO SCH ×2 (22:15)
[2020-01-03] MEDS ORDERED: chlordiazePOXIDE HCL 10 MG CAPSULE PO PRN
[2020-01-03] MEDS: chlordiazePOXIDE HCL 10 MG CAPSULE PO SCH ×4 (06:03→22:23)
[2020-01-03] MEDS: TIOTROPIUM BROMIDE 2.5 MCG (SPIRIVA) RESPIMAT INHALER IH SCH (10:07)
[2020-01-03] MEDS: SERTRALINE HCL 50 MG TABLET (FP) PO SCH (10:07)
[2020-01-03] MEDS: ASPIRIN COATED 81 MG TABLET.EC PO SCH (10:07)
[2020-01-03] MEDS: PANTOPRAZOLE 20 MG TABLET PO SCH (10:07)
[2020-01-03] MEDS: amLODIPine BESYLATE 10 MG TABLET (FP) PO SCH (10:07)
[2020-01-03] MEDS: HYDROCHLOROTHIAZIDE 25 MG TABLET (FP) PO SCH (10:07)
[2020-01-03] MEDS: FLUTICASONE PROP 0.05% 16 GM NASAL SPRAY NS SCH ×2 (10:08→22:25)
[2020-01-03] MEDS: NICOTINE 7 MG/24 HOURS TOPICAL PATCH TD SCH (10:08)
[2020-01-03] MEDS: CLOTRIMAZOLE 1% CREAM 15 GM TUBE TP SCH ×2 (10:08→22:24)
[2020-01-03] MEDS: PRENATAL VITAMINS W/ FOLIC ACID TABLET (FP) PO SCH (10:08)
[2020-01-03] MEDS: NICOTINE POLACRILEX 2 MG GUM BUC PRN ×2 (10:09→20:10)
[2020-01-03] MEDS: BACITRACIN 0.9 GM PACKET TP SCH (10:42)
[2020-01-03] MEDS: BICTEGRAV/EMTRICIT/TENOFOV (BIKTARVY) 50-200-25 MG TABLET PO SCH (10:42)
[2020-01-03] MEDS: IBUPROFEN 400 MG TABLET (FP) PO PRN ×2 (11:56→20:08)
--- NOTE | 2020-01-03 13:42 | PN ---
[facility] CIWA - CIWA Score Nausea/Vomitin-No Nausea/No Vomiting Muscle Tremors: 2 Anxiety: 1-Mildly Anxious Agitation: 2 Paroxysmal Sweats: 1-Minimal Palms Moist Orientation: 0-Oriented Tacttile Disturbances: 0-None Auditory Disturbances: 0-None Visual Disturbances: 0-None Headache: 0-None Present CIWA-Ar Total Score: 6 [facility] Progress Note (SOAP) Subjective: sweats shakes body aches Objective: 01/03/20 13:41 Vital Signs Temperature 98.0 F 01/03/20 12:28 Pulse Rate 69 01/03/20 12:28 Respiratory Rate 01/03/20 12:28 Blood Pressure 144/78 01/03/20 12:28 O2 Sat by Pulse Oximetry (%) 96 01/03/20 12:28 Laboratory Tests 12/31/19 12/31/19 12/31/19 09:26 10:20 10:20 WBC 3.5 L RBC 4.77 Hgb 13.7 Hct 41.3 MCV 86.6 MCH 28.8 MCHC 33.3 RDW 14.6 Plt Count 224 MPV 8.6 Sodium Potassium Chloride Carbon Dioxide Anion Gap BUN Creatinine Est GFR (CKD-EPI)AfAm Est GFR (CKD-EPI)NonAf Random Glucose Calcium Total Bilirubin AST ALT Alkaline Phosphatase Total Protein Albumin POC Urine HCG, Qual Negative Syphilis Serology Reactive A* RPR Titer COVID-19 (RIC) 12/31/19 12/31/19 12/31/19 10:20 10:20 10:25 WBC RBC Hgb Hct MCV MCH MCHC RDW Plt Count MPV Sodium 141 Potassium 3.9 Chloride 108 H Carbon Dioxide 28 Anion Gap 5 L BUN 14.5 Creatinine 0.9 Est GFR (CKD-EPI)AfAm 84.01 Est GFR (CKD-EPI)NonAf 72.49 Random Glucose 62 L Calcium 8.9 Total Bilirubin 0.8 AST 27 ALT 22 Alkaline Phosphatase 100 Total Protein 8.2 Albumin 3.7 POC Urine HCG, Qual Syphilis Serology RPR Titer Reactive 1:1 H COVID-19 (RIC) Not detected labs noted aaox3 ambulating no acute distress Assessment: 01/03/20 13:42 withdrawal sx Plan: continue detox
[2020-01-03] MEDS: ATORVASTATIN CA 20 MG TABLET (FP) PO SCH (22:23)
[2020-01-03] MEDS: QUEtiapine FUMARATE 300 MG TABLET PO SCH (22:23)
[2020-01-03] MEDS: THIAMINE HCL 100 MG TABLET (FP) PO SCH (22:24)
[2020-01-03] MEDS: MELATONIN 5 MG TABLETS PO SCH (22:25)
[2020-01-04] MEDS: chlordiazePOXIDE HCL 10 MG CAPSULE PO SCH ×2 (06:40→17:46)
[2020-01-04] MEDS: NICOTINE POLACRILEX 2 MG GUM BUC PRN ×3 (06:41→20:11)
[2020-01-04] MEDS: ASPIRIN COATED 81 MG TABLET.EC PO SCH (10:11)
[2020-01-04] MEDS: BACITRACIN 0.9 GM PACKET TP SCH (10:11)
[2020-01-04] MEDS: BICTEGRAV/EMTRICIT/TENOFOV (BIKTARVY) 50-200-25 MG TABLET PO SCH (10:11)
[2020-01-04] MEDS: PRENATAL VITAMINS W/ FOLIC ACID TABLET (FP) PO SCH (10:12)
[2020-01-04] MEDS: HYDROCHLOROTHIAZIDE 25 MG TABLET (FP) PO SCH (10:12)
[2020-01-04] MEDS: NICOTINE 7 MG/24 HOURS TOPICAL PATCH TD SCH (10:12)
[2020-01-04] MEDS: PANTOPRAZOLE 20 MG TABLET PO SCH (10:12)
[2020-01-04] MEDS: FLUTICASONE PROP 0.05% 16 GM NASAL SPRAY NS SCH ×2 (10:12→22:33)
[2020-01-04] MEDS: CLOTRIMAZOLE 1% CREAM 15 GM TUBE TP SCH ×2 (10:12→22:33)
[2020-01-04] MEDS: TIOTROPIUM BROMIDE 2.5 MCG (SPIRIVA) RESPIMAT INHALER IH SCH (10:12)
[2020-01-04] MEDS: amLODIPine BESYLATE 10 MG TABLET (FP) PO SCH (10:12)
[2020-01-04] MEDS: SERTRALINE HCL 50 MG TABLET (FP) PO SCH (10:13)
[2020-01-04] MEDS ORDERED: LIDOCAINE VISCOUS 2% ORAL/TOP 20 ML UNIT-DOSE CUP MM PRN (10:16)
--- NOTE | 2020-01-04 10:19 | PN ---
S CIWA - CIWA Score Nausea/Vomitin-No Nausea/No Vomiting Muscle Tremors: 2 Anxiety: 1-Mildly Anxious Agitation: 1-Slight > Activity Paroxysmal Sweats: No Perspiration Orientation: 0-Oriented Tacttile Disturbances: 0-None Auditory Disturbances: 0-None Visual Disturbances: 0-None Headache: 0-None Present CIWA-Ar Total Score: 4 [facility] Progress Note (SOAP) Subjective: tooth ache restless Objective: 01/04/20 10:17 Vital Signs Temperature 97.6 F 01/04/20 08:36 Pulse Rate 79 01/04/20 08:36 Respiratory Rate 17 01/04/20 08:36 Blood Pressure 126/72 01/04/20 08:36 O2 Sat by Pulse Oximetry (%) 94 L 01/04/20 06:50 Laboratory Tests 12/31/19 12/31/19 12/31/19 09:26 10:20 10:20 WBC 3.5 L RBC 4.77 Hgb 13.7 Hct 41.3 MCV 86.6 MCH 28.8 MCHC 33.3 RDW 14.6 Plt Count 224 MPV 8.6 Sodium Potassium Chloride Carbon Dioxide Anion Gap BUN Creatinine Est GFR (CKD-EPI)AfAm Est GFR (CKD-EPI)NonAf Random Glucose Calcium Total Bilirubin AST ALT Alkaline Phosphatase Total Protein Albumin POC Urine HCG, Qual Negative Syphilis Serology Reactive A* RPR Titer COVID-19 (RIC) 12/31/19 12/31/19 12/31/19 10:20 10:20 10:25 WBC RBC Hgb Hct MCV MCH MCHC RDW Plt Count MPV Sodium 141 Potassium 3.9 Chloride 108 H Carbon Dioxide 28 Anion Gap 5 L BUN 14.5 Creatinine 0.9 Est GFR (CKD-EPI)AfAm 84.01 Est GFR (CKD-EPI)NonAf 72.49 Random Glucose 62 L Calcium 8.9 Total Bilirubin 0.8 AST 27 ALT 22 Alkaline Phosphatase 100 Total Protein 8.2 Albumin 3.7 POC Urine HCG, Qual Syphilis Serology RPR Titer Reactive 1:1 H COVID-19 (RIC) Not detected labs noted aaox3 ambulating no acute distress Assessment: 01/04/20 10:18 withdrawals Plan: continue detox increase fluids motrin 800mg prn lidocaine s/s
[2020-01-04] MEDS: IBUPROFEN 400 MG TABLET (FP) PO PRN (17:47)
[2020-01-04] MEDS ORDERED: COLLOIDAL OATMEAL 1 BAR EACH TP ONE (18:00)
[2020-01-04] MEDS: THIAMINE HCL 100 MG TABLET (FP) PO SCH (22:32)
[2020-01-04] MEDS: ATORVASTATIN CA 20 MG TABLET (FP) PO SCH (22:32)
[2020-01-04] MEDS: QUEtiapine FUMARATE 300 MG TABLET PO SCH (22:32)
[2020-01-04] MEDS: MELATONIN 5 MG TABLETS PO SCH (22:33)
[2020-01-05] MEDS ORDERED: chlordiazePOXIDE HCL 10 MG CAPSULE PO ONE (05:00)
[2020-01-05] MEDS: NICOTINE POLACRILEX 2 MG GUM BUC PRN (05:46)
[2020-01-05] MEDS: IBUPROFEN 400 MG TABLET (FP) PO PRN (07:48)
[2020-01-05 08:45] VITALS: BP 144/93; PULSE 66; TEMP 97.1
--- NOTE | 2020-01-05 09:17 | DS ---
[facility] Detox Discharge Summary Admission Date: 12/31/19 Discharge Date: 01/05/20 - History Present History: Alcohol Dependence, Cocaine Dependence - Physical Exam Results Vital Signs: Vital Signs Temperature 97.1 F L 01/05/20 06:21 Pulse Rate 66 01/05/20 06:21 Respiratory Rate 20 01/05/20 06:21 Blood Pressure 144/93 01/05/20 06:21 O2 Sat by Pulse Oximetry (%) 96 01/05/20 06:21 Pertinent Admission Physical Exam Findings: Vital Signs Temperature 97.1 F L 01/05/20 06:21 Pulse Rate 66 01/05/20 06:21 Respiratory Rate 20 01/05/20 06:21 Blood Pressure 144/93 01/05/20 06:21 O2 Sat by Pulse Oximetry (%) 96 01/05/20 06:21 Laboratory Tests 12/31/19 12/31/19 12/31/19 09:26 10:20 10:20 WBC 3.5 L RBC 4.77 Hgb 13.7 Hct 41.3 MCV 86.6 MCH 28.8 MCHC 33.3 RDW 14.6 Plt Count 224 MPV 8.6 Sodium Potassium Chloride Carbon Dioxide Anion Gap BUN Creatinine Est GFR (CKD-EPI)AfAm Est GFR (CKD-EPI)NonAf Random Glucose Calcium Total Bilirubin AST ALT Alkaline Phosphatase Total Protein Albumin POC Urine HCG, Qual Negative Syphilis Serology Reactive A* RPR Titer COVID-19 (RIC) 12/31/19 12/31/19 12/31/19 10:20 10:20 10:25 WBC RBC Hgb Hct MCV MCH MCHC RDW Plt Count MPV Sodium 141 Potassium 3.9 Chloride 108 H Carbon Dioxide 28 Anion Gap 5 L BUN 14.5 Creatinine 0.9 Est GFR (CKD-EPI)AfAm 84.01 Est GFR (CKD-EPI)NonAf 72.49 Random Glucose 62 L Calcium 8.9 Total Bilirubin 0.8 AST 27 ALT 22 Alkaline Phosphatase 100 Total Protein 8.2 Albumin 3.7 POC Urine HCG, Qual Syphilis Serology RPR Titer Reactive 1:1 H COVID-19 (RIC) Not detected labs noted aaox3 ambulating no acute distress - Treatment Hospital Course: Detox Protocol Followed, Detoxed Safely, Responded well, Discharged Condition Good, Rehab Referral Accepted - Medication Discharge Medications: Ambulatory Orders Aspirin Coated [Ecotrin -] 81 mg PO DAILY #30 tablet.ec 03/02/20 Bictegrav/Emtricit/Tenofov Ala [Biktarvy 50-200-25 mg Tablet] 1 each PO DAILY #30 tablet 06/14/19 Albuterol Sulfate Inhaler - [Ventolin HFA Inhaler -] 2 inh PO Q4H PRN #1 inh 09/14/19 Amlodipine Besylate [Norvasc -] 10 mg PO DAILY #14 tablet 09/14/19 Atorvastatin Ca [Lipitor] 20 mg PO HS #14 tablet 09/14/19 Fluticasone Prop 0.05% Nasal [Flonase -] 2 spray NS BID #1 spray 09/14/19 Hydrochlorothiazide [Hctz -] 25 mg PO DAILY #14 tablet 09/14/19 Metoprolol Succinate [Toprol XL -] 50 mg PO DAILY #14 tab.sr.24h 09/14/19 Pantoprazole Sodium [Protonix -] 20 mg PO DAILY #7 tab 09/14/19 Quetiapine Fumarate [Seroquel -] 300 mg PO HS #30 tab 09/14/19 Sertraline HCl [Zoloft] 100 mg PO DAILY #30 tablet 09/14/19 Tiotropium [place] [Spiriva] 1 inh IH DAILY #1 cap.w.dev 09/14/19 - Diagnosis (1) Alcohol dependence with uncomplicated withdrawal Current Visit: Yes Status: Chronic (2) Cocaine abuse Current Visit: Yes Status: Chronic (3) Substance-induced anxiety disorder Current Visit: Yes Status: Acute (4) Substance-induced sleep disorder Current Visit: Yes Status: Acute (5) Asthma Current Visit: Yes Status: Chronic Qualifiers: Asthma severity: mild Asthma persistence: intermittent Asthma complication type: uncomplicated Qualified Code(s): J45.20 - Mild intermittent asthma, uncomplicated (6) Back pain Current Visit: Yes Status: Chronic Qualifiers: Chronicity: chronic Back pain laterality: bilateral Sciatica presence: without sciatica (7) COPD (chronic obstructive pulmonary disease) Current Visit: Yes Status: Chronic Qualifiers: COPD type: emphysema Emphysema type: other Qualified Code(s): J43.8 - Other emphysema (8) Dyslipidemia Current Visit: Yes Status: Chronic (9) Essential hypertension Current Visit: Yes Status: Chronic (10) GERD (gastroesophageal reflux disease) Current Visit: Yes Status: Chronic Qualifiers: Esophagitis presence: without esophagitis Qualified Code(s): K21.9 - Gastro-esophageal reflux disease without esophagitis (11) HIV (human immunodeficiency virus infection) Current Visit: Yes Status: Chronic Qualifiers: HIV symptom status: asymptomatic Qualified Code(s): Z21 - Asymptomatic human immunodeficiency virus [HIV] infection status (12) History of bipolar disorder Current Visit: Yes Status: Chronic (13) Mood disorder Current Visit: Yes Status: Chronic (14) Nicotine dependence Current Visit: Yes Status: Chronic Qualifiers: Nicotine product type: cigarettes Substance use status: uncomplicated Qualified Code(s): F17.210 - Nicotine dependence, cigarettes, uncomplicated (15) History of syphilis Current Visit: Yes Status: Resolved (16) Cocaine dependence Current Visit: No Status: Acute Qualifiers: Substance use status: uncomplicated Qualified Code(s): F14.20 - Cocaine dependence, uncomplicated (17) Pneumonia Current Visit: No Status: Acute Qualifiers: Pneumonia type: due to unspecified organism Laterality: unspecified laterality Lung location: unspecified part of lung Qualified Code(s): J18.9 - Pneumonia, unspecified organism (18) Substance-induced sleep disorder Current Visit: No Status: Acute (19) Substance-induced sleep disorder Current Visit: No Status: Acute (20) Alcohol dependence Current Visit: No Status: Chronic Qualifiers: Substance use status: uncomplicated Qualified Code(s): F10.20 - Alcohol dependence, uncomplicated (21) Cocaine dependence Current Visit: Yes Status: Chronic Qualifiers: Substance use status: uncomplicated Qualified Code(s): F14.20 - Cocaine dependence, uncomplicated (22) History of depression Current Visit: No Status: Chronic (23) Hypercholesterolemia Current Visit: No Status: Chronic (24) Hypokalemia Current Visit: No Status: Chronic (25) Insomnia Current Visit: No Status: Chronic (26) Mood disorder Current Visit: No Status: Chronic (27) Murmur, cardiac Current Visit: No Status: Chronic (28) Neuropathy Current Visit: No Status: Chronic (29) Nicotine dependence Current Visit: Yes Status: Chronic Qualifiers: Nicotine product type: cigarettes Substance use status: uncomplicated Qualified Code(s): F17.210 - Nicotine dependence, cigarettes, uncomplicated (30) Osteoarthritis of left hip Current Visit: No Status: Chronic Qualifiers: Osteoarthritis type: primary Qualified Code(s): M16.12 - Unilateral primary osteoarthritis, left hip (31) Substance induced mood disorder Current Visit: No Status: Suspected (32) Gonorrhea Current Visit: No Status: Resolved (33) Bipolar disorder Current Visit: No Status: Ruled-out (34) MDD (major depressive disorder) Current Visit: No Status: Ruled-out - AMA Did Patient Leave Against Medical Advice: No
== END 2020-01-05 10:20 | disposition other institution (70) | DRG 774 ==
LOC: YASAS 08:39 → Y6N 09:48
PROVIDERS: ADMIT Allergy & Immunology; ATTEND Allergy & Immunology
PROC: HZ2ZZZZ Detoxification Services for Substance Abuse Treatment (ICD-10-PCS; principal; 2019-12-31)
DX: F10.230 Alcohol dependence with withdrawal, uncomplicated (principal); F14.20 Cocaine dependence, uncomplicated; F17.210 Nicotine dependence, cigarettes, uncomplicated; F19.280 Other psychoactive substance dependence with psychoactive substance-induced anxiety disorder; F19.24 Other psychoactive substance dependence with psychoactive substance-induced mood disorder; F39 Unspecified mood [affective] disorder; Z21 Asymptomatic human immunodeficiency virus [HIV] infection status; J43.8 Other emphysema; J45.20 Mild intermittent asthma, uncomplicated; I10 Essential (primary) hypertension; E78.5 Hyperlipidemia, unspecified; M54.89 Other dorsalgia; M16.12 Unilateral primary osteoarthritis, left hip; Z86.19 Personal history of other infectious and parasitic diseases; Z87.01 Personal history of pneumonia (recurrent); Z88.1 Allergy status to other antibiotic agents; Z88.8 Allergy status to other drugs, medicaments and biological substances; Z91.018 Allergy to other foods
CPT/HCPCS: 36415; 80053; 81025; 85027; 86593; 86780; U0003

== ENCOUNTER 2020-06-07 09:16 | Inpatient (IN) | payer OTHER ==
[2020-06-07] MEDS ORDERED: chlordiazePOXIDE HCL 25 MG CAPSULE PO PRN (09:53)
[2020-06-07] MEDS ORDERED: IBUPROFEN 400 MG TABLET (FP) PO PRN (09:53)
[2020-06-07] MEDS ORDERED: ACETAMINOPHEN 325 MG TABLET (FP) PO PRN ×2 (09:53)
[2020-06-07] MEDS ORDERED: ONDANSETRON *ODT* 4 MG TABLET SL PRN (09:53)
[2020-06-07] MEDS ORDERED: MENTHOL/PHENOL 1 EACH UD MM PRN (09:53)
[2020-06-07] MEDS ORDERED: MAG HYDROX/AL HYDROX/SIMETH 30 ML UNIT-DOSE CUP PO PRN (09:53)
[2020-06-07] MEDS ORDERED: MAGNESIUM CITRATE 300 ML BOTTLE PO PRN (09:53)
[2020-06-07] MEDS ORDERED: MAGNESIUM HYDROX 2400MG/30ML ORAL SUSPENSION 30 ML CUP PO PRN (09:53)
[2020-06-07] MEDS ORDERED: NICOTINE POLACRILEX 2 MG GUM BUC PRN (09:53)
[2020-06-07 10:06] VITALS: BMI 28.8
[2020-06-07] MEDS ORDERED: ALBUTEROL SO4 HFA INHALER IH PRN (11:22)
[2020-06-07] MEDS: PRENATAL VITAMINS W/ FOLIC ACID TABLET (FP) PO SCH (12:10)
[2020-06-07] MEDS: hydrOXYzine PAMOATE 25 MG CAPSULE (FP) PO SCH ×4 (12:10→22:27)
[2020-06-07] MEDS: NICOTINE 21 MG/24 HOURS TOPICAL PATCH TD SCH (12:10)
[2020-06-07] MEDS: HYDROCHLOROTHIAZIDE 25 MG TABLET (FP) PO SCH (12:10)
[2020-06-07] MEDS: chlordiazePOXIDE HCL 25 MG CAPSULE PO SCH ×3 (12:11→22:11)
[2020-06-07] MEDS: ASPIRIN COATED 81 MG TABLET.EC PO SCH (12:11)
[2020-06-07] MEDS: amLODIPine BESYLATE 10 MG TABLET (FP) PO SCH (12:11)
[2020-06-07] MEDS: PANTOPRAZOLE 20 MG TABLET PO SCH (12:11)
[2020-06-07] MEDS: BICTEGRAV/EMTRICIT/TENOFOV (BIKTARVY) 50-200-25 MG TABLET PO SCH (12:12)
[2020-06-07 14:35] LABS: HEMATOCRIT 41.1 % (32.4-45.2); HEMOGLOBIN 13.6 GM/dL (10.7-15.3); MCH 28.1 pg (25.7-33.7); MEAN PLT VOLUME 8.6 fl (7.5-11.1); PLATELET COUNT 229 K/MM3 (134-434); RBC 4.84 M/mm3 (3.60-5.2); RDW 14.2 % (11.6-15.6); WHITE BLOOD COUNT 3.7 K/mm3 (4.0-10.0)
[2020-06-07 14:38] LABS: POTASSIUM 3.2 mmol/L (3.5-5.1)
[2020-06-07 14:42] LABS: ALBUMIN 3.6 g/dl (3.4-5.0); BLOOD UREA NITROGEN 16.9 mg/dL (7-18)
[2020-06-07 14:43] LABS: CALCIUM 9.3 mg/dL (8.5-10.1)
[2020-06-07 14:45] LABS: CREATININE 1.1 mg/dL (0.55-1.3)
[2020-06-07 14:47] LABS: BILIRUBIN,TOTAL 0.5 mg/dL (0.2-1); TOT PROT 7.8 g/dl (6.4-8.2)
[2020-06-07] MEDS: QUEtiapine FUMARATE 200 MG TABLET PO SCH (22:10)
[2020-06-07] MEDS: THIAMINE HCL 100 MG TABLET (FP) PO SCH (22:11)
[2020-06-07] MEDS: ATORVASTATIN CA 20 MG TABLET (FP) PO SCH (22:11)
[2020-06-07] MEDS: FLUTICASONE PROP 0.05% 16 GM NASAL SPRAY NS SCH (22:12)
[2020-06-07] MEDS: MELATONIN 5 MG TABLETS PO SCH (22:12)
[2020-06-07] MEDS: BISMUTH SUBSALICYLATE 524 MG/30 ML UD PO PRN (22:15)
[2020-06-08] MEDS: chlordiazePOXIDE HCL 25 MG CAPSULE PO SCH ×4 (06:07→22:06)
[2020-06-08] MEDS: hydrOXYzine PAMOATE 25 MG CAPSULE (FP) PO SCH ×3 (06:07→13:15)
[2020-06-08] MEDS: SERTRALINE HCL 50 MG TABLET (FP) PO SCH (10:10)
[2020-06-08] MEDS: BICTEGRAV/EMTRICIT/TENOFOV (BIKTARVY) 50-200-25 MG TABLET PO SCH (10:10)
[2020-06-08] MEDS: HYDROCHLOROTHIAZIDE 25 MG TABLET (FP) PO SCH (10:11)
[2020-06-08] MEDS: PANTOPRAZOLE 20 MG TABLET PO SCH (10:11)
[2020-06-08] MEDS: amLODIPine BESYLATE 10 MG TABLET (FP) PO SCH (10:11)
[2020-06-08] MEDS: ASPIRIN COATED 81 MG TABLET.EC PO SCH (10:11)
[2020-06-08] MEDS: FLUTICASONE PROP 0.05% 16 GM NASAL SPRAY NS SCH ×2 (10:12→22:06)
[2020-06-08] MEDS: PRENATAL VITAMINS W/ FOLIC ACID TABLET (FP) PO SCH (10:12)
[2020-06-08] MEDS: NICOTINE 21 MG/24 HOURS TOPICAL PATCH TD SCH (10:12)
[2020-06-08] MEDS ORDERED: POTASSIUM CHLORIDE ORAL LIQUID 20 MEQ/15 ML PO ONE ×2 (17:00→21:00)
[2020-06-08] MEDS ORDERED: POTASSIUM CHLORIDE TABS 20 MEQ TABLET.ER (FP) PO ONE (19:30)
[2020-06-08] MEDS: ATORVASTATIN CA 20 MG TABLET (FP) PO SCH (22:05)
[2020-06-08] MEDS: QUEtiapine FUMARATE 200 MG TABLET PO SCH (22:05)
[2020-06-08] MEDS: THIAMINE HCL 100 MG TABLET (FP) PO SCH (22:06)
[2020-06-08] MEDS: MELATONIN 5 MG TABLETS PO SCH (22:06)
[2020-06-09] MEDS: chlordiazePOXIDE HCL 25 MG CAPSULE PO SCH ×4 (06:08→22:17)
[2020-06-09] MEDS: BICTEGRAV/EMTRICIT/TENOFOV (BIKTARVY) 50-200-25 MG TABLET PO SCH (07:17)
[2020-06-09] MEDS: HYDROCHLOROTHIAZIDE 25 MG TABLET (FP) PO SCH (10:20)
[2020-06-09] MEDS: SERTRALINE HCL 50 MG TABLET (FP) PO SCH (10:20)
[2020-06-09] MEDS: ASPIRIN COATED 81 MG TABLET.EC PO SCH (10:20)
[2020-06-09] MEDS: PANTOPRAZOLE 20 MG TABLET PO SCH (10:20)
[2020-06-09] MEDS: amLODIPine BESYLATE 10 MG TABLET (FP) PO SCH (10:20)
[2020-06-09] MEDS: NICOTINE 21 MG/24 HOURS TOPICAL PATCH TD SCH (10:21)
[2020-06-09] MEDS: PRENATAL VITAMINS W/ FOLIC ACID TABLET (FP) PO SCH (10:21)
[2020-06-09] MEDS: FLUTICASONE PROP 0.05% 16 GM NASAL SPRAY NS SCH ×2 (10:23→22:16)
[2020-06-09] MEDS: MELATONIN 5 MG TABLETS PO SCH (22:16)
[2020-06-09] MEDS: QUEtiapine FUMARATE 200 MG TABLET PO SCH (22:16)
[2020-06-09] MEDS: THIAMINE HCL 100 MG TABLET (FP) PO SCH (22:16)
[2020-06-09] MEDS: ATORVASTATIN CA 20 MG TABLET (FP) PO SCH (22:16)
[2020-06-09] MEDS ORDERED: POTASSIUM CHLORIDE TABS 20 MEQ TABLET.ER (FP) PO ONE (23:30)
[2020-06-10] MEDS ORDERED: chlordiazePOXIDE HCL 10 MG CAPSULE PO PRN
[2020-06-10] MEDS: chlordiazePOXIDE HCL 10 MG CAPSULE PO SCH ×4 (06:23→22:44)
[2020-06-10] MEDS: ASPIRIN COATED 81 MG TABLET.EC PO SCH (10:34)
[2020-06-10] MEDS: amLODIPine BESYLATE 10 MG TABLET (FP) PO SCH (10:34)
[2020-06-10] MEDS: PANTOPRAZOLE 20 MG TABLET PO SCH (10:34)
[2020-06-10] MEDS: METHOCARBAMOL 500 MG TABLET PO PRN ×2 (10:34→22:44)
[2020-06-10] MEDS: SERTRALINE HCL 50 MG TABLET (FP) PO SCH (10:34)
[2020-06-10] MEDS: HYDROCHLOROTHIAZIDE 25 MG TABLET (FP) PO SCH (10:34)
[2020-06-10] MEDS: PRENATAL VITAMINS W/ FOLIC ACID TABLET (FP) PO SCH (10:34)
[2020-06-10] MEDS: BICTEGRAV/EMTRICIT/TENOFOV (BIKTARVY) 50-200-25 MG TABLET PO SCH (10:35)
[2020-06-10] MEDS: NICOTINE 21 MG/24 HOURS TOPICAL PATCH TD SCH (10:36)
[2020-06-10] MEDS: FLUTICASONE PROP 0.05% 16 GM NASAL SPRAY NS SCH ×2 (10:37→22:44)
[2020-06-10] MEDS: ATORVASTATIN CA 20 MG TABLET (FP) PO SCH (22:44)
[2020-06-10] MEDS: QUEtiapine FUMARATE 200 MG TABLET PO SCH (22:44)
[2020-06-10] MEDS: THIAMINE HCL 100 MG TABLET (FP) PO SCH (22:44)
[2020-06-10] MEDS: MELATONIN 5 MG TABLETS PO SCH (22:44)
[2020-06-11] MEDS: chlordiazePOXIDE HCL 10 MG CAPSULE PO SCH ×2 (06:26→17:05)
[2020-06-11] MEDS: BICTEGRAV/EMTRICIT/TENOFOV (BIKTARVY) 50-200-25 MG TABLET PO SCH (09:42)
[2020-06-11] MEDS: PANTOPRAZOLE 20 MG TABLET PO SCH (10:25)
[2020-06-11] MEDS: HYDROCHLOROTHIAZIDE 25 MG TABLET (FP) PO SCH (10:25)
[2020-06-11] MEDS: PRENATAL VITAMINS W/ FOLIC ACID TABLET (FP) PO SCH (10:25)
[2020-06-11] MEDS: ASPIRIN COATED 81 MG TABLET.EC PO SCH (10:25)
[2020-06-11] MEDS: SERTRALINE HCL 50 MG TABLET (FP) PO SCH (10:25)
[2020-06-11] MEDS: amLODIPine BESYLATE 10 MG TABLET (FP) PO SCH (10:25)
[2020-06-11] MEDS: METHOCARBAMOL 500 MG TABLET PO PRN (10:26)
[2020-06-11] MEDS: NICOTINE 21 MG/24 HOURS TOPICAL PATCH TD SCH (10:26)
[2020-06-11] MEDS: FLUTICASONE PROP 0.05% 16 GM NASAL SPRAY NS SCH ×2 (10:26→21:16)
[2020-06-11] MEDS: BISMUTH SUBSALICYLATE 524 MG/30 ML UD PO PRN (11:21)
[2020-06-11] MEDS ORDERED: LOPERAMIDE HCL 2 MG CAPSULE PO PRN (18:43)
[2020-06-11] MEDS: THIAMINE HCL 100 MG TABLET (FP) PO SCH (21:16)
[2020-06-11] MEDS: QUEtiapine FUMARATE 200 MG TABLET PO SCH (21:16)
[2020-06-11] MEDS: MELATONIN 5 MG TABLETS PO SCH (21:16)
[2020-06-11] MEDS: ATORVASTATIN CA 20 MG TABLET (FP) PO SCH (21:16)
[2020-06-12] MEDS ORDERED: chlordiazePOXIDE HCL 10 MG CAPSULE PO ONE (05:00)
[2020-06-12 06:44] VITALS: TEMP 97.8
[2020-06-12 08:53] VITALS: BP 112/76; PULSE 82
[2020-06-12] MEDS: PRENATAL VITAMINS W/ FOLIC ACID TABLET (FP) PO SCH (10:03)
[2020-06-12] MEDS: ASPIRIN COATED 81 MG TABLET.EC PO SCH (10:04)
[2020-06-12] MEDS: HYDROCHLOROTHIAZIDE 25 MG TABLET (FP) PO SCH (10:05)
[2020-06-12] MEDS: FLUTICASONE PROP 0.05% 16 GM NASAL SPRAY NS SCH (10:05)
[2020-06-12] MEDS: amLODIPine BESYLATE 10 MG TABLET (FP) PO SCH (10:05)
[2020-06-12] MEDS: NICOTINE 21 MG/24 HOURS TOPICAL PATCH TD SCH (10:05)
[2020-06-12] MEDS: SERTRALINE HCL 50 MG TABLET (FP) PO SCH (10:47)
== END 2020-06-12 11:15 | disposition home or self-care (01) | DRG 774 ==
LOC: YASAS 09:16 → Y3N 10:42
PROVIDERS: ADMIT Allergy & Immunology; ATTEND Allergy & Immunology
PROC: HZ2ZZZZ Detoxification Services for Substance Abuse Treatment (ICD-10-PCS; principal; 2020-06-07)
DX: F10.230 Alcohol dependence with withdrawal, uncomplicated (principal); F14.20 Cocaine dependence, uncomplicated; F17.210 Nicotine dependence, cigarettes, uncomplicated; F19.282 Other psychoactive substance dependence with psychoactive substance-induced sleep disorder; F19.280 Other psychoactive substance dependence with psychoactive substance-induced anxiety disorder; F32.9 Major depressive disorder, single episode, unspecified; Z21 Asymptomatic human immunodeficiency virus [HIV] infection status; A53.0 Latent syphilis, unspecified as early or late; G47.00 Insomnia, unspecified; G62.9 Polyneuropathy, unspecified; E87.6 Hypokalemia; E78.5 Hyperlipidemia, unspecified; I10 Essential (primary) hypertension; J43.8 Other emphysema; J45.20 Mild intermittent asthma, uncomplicated; K21.9 Gastro-esophageal reflux disease without esophagitis; M16.12 Unilateral primary osteoarthritis, left hip; M54.5 Low back pain; G89.29 Other chronic pain; Z86.19 Personal history of other infectious and parasitic diseases; Z88.1 Allergy status to other antibiotic agents; Z88.2 Allergy status to sulfonamides; Z88.8 Allergy status to other drugs, medicaments and biological substances; Z91.013 Allergy to seafood; Z91.018 Allergy to other foods
CPT/HCPCS: 36415; 80053; 81025; 84132; 85027; 86593; 86780; 93005; 93010; C9803; U0003

== ENCOUNTER 2020-07-04 11:14 | Inpatient (IN) | payer OTHER ==
[2020-07-04 11:59] VITALS: BMI 34.2
[2020-07-04] MEDS ORDERED: MENTHOL/PHENOL 1 EACH UD MM PRN (13:25)
[2020-07-04] MEDS ORDERED: MAGNESIUM CITRATE 300 ML BOTTLE PO PRN (13:25)
[2020-07-04] MEDS ORDERED: chlordiazePOXIDE HCL 25 MG CAPSULE PO PRN (13:25)
[2020-07-04] MEDS ORDERED: MAGNESIUM HYDROX 2400MG/30ML ORAL SUSPENSION 30 ML CUP PO PRN (13:25)
[2020-07-04] MEDS ORDERED: MAG HYDROX/AL HYDROX/SIMETH 30 ML UNIT-DOSE CUP PO PRN (13:25)
[2020-07-04] MEDS ORDERED: BISMUTH SUBSALICYLATE 524 MG/30 ML UD PO PRN (13:25)
[2020-07-04] MEDS ORDERED: ACETAMINOPHEN 325 MG TABLET (FP) PO PRN ×2 (13:25)
[2020-07-04] MEDS ORDERED: METHOCARBAMOL 500 MG TABLET PO PRN (13:25)
[2020-07-04] MEDS ORDERED: IBUPROFEN 400 MG TABLET (FP) PO PRN (13:25)
[2020-07-04] MEDS: KETOCONAZOLE 2% CREAM - 60GM TUBE TP SCH (15:40)
[2020-07-04] MEDS: chlordiazePOXIDE HCL 25 MG CAPSULE PO SCH ×2 (18:23→22:31)
[2020-07-04] MEDS: NICOTINE POLACRILEX 2 MG GUM BUC PRN (19:22)
[2020-07-04] MEDS: ALBUTEROL SO4 HFA INHALER IH PRN (20:41)
[2020-07-04] MEDS: ATORVASTATIN CA 20 MG TABLET (FP) PO SCH (22:30)
[2020-07-04] MEDS: QUEtiapine FUMARATE 200 MG TABLET PO SCH (22:30)
[2020-07-04] MEDS: MELATONIN 5 MG TABLETS PO SCH (22:30)
[2020-07-04] MEDS: THIAMINE HCL 100 MG TABLET (FP) PO SCH (22:30)
[2020-07-04] MEDS: FLUTICASONE PROP 0.05% 16 GM NASAL SPRAY NS SCH (22:33)
[2020-07-05] MEDS: chlordiazePOXIDE HCL 25 MG CAPSULE PO SCH ×4 (06:49→22:18)
[2020-07-05] MEDS ORDERED: BICTEGRAV/EMTRICIT/TENOFOV (BIKTARVY) 50-200-25 MG TABLET PO SCH (08:00)
[2020-07-05] MEDS: BICTEGRAV/EMTRICIT/TENOFOV (BIKTARVY) 50-200-25 MG TABLET PO SCH (10:20)
[2020-07-05] MEDS: ASPIRIN COATED 81 MG TABLET.EC PO SCH (10:21)
[2020-07-05] MEDS: HYDROCHLOROTHIAZIDE 25 MG TABLET (FP) PO SCH (10:21)
[2020-07-05] MEDS: FLUTICASONE PROP 0.05% 16 GM NASAL SPRAY NS SCH ×2 (10:21→22:18)
[2020-07-05] MEDS: amLODIPine BESYLATE 10 MG TABLET (FP) PO SCH (10:21)
[2020-07-05] MEDS: PRENATAL VITAMINS W/ FOLIC ACID TABLET (FP) PO SCH (10:22)
[2020-07-05] MEDS: TIOTROPIUM BROMIDE 2.5 MCG (SPIRIVA) RESPIMAT INHALER IH SCH (10:22)
[2020-07-05] MEDS: SERTRALINE HCL 50 MG TABLET (FP) PO SCH (10:22)
[2020-07-05] MEDS: KETOCONAZOLE 2% CREAM - 60GM TUBE TP SCH (10:23)
[2020-07-05] MEDS: NICOTINE POLACRILEX 2 MG GUM BUC PRN ×3 (10:23→18:38)
[2020-07-05] MEDS: NICOTINE 21 MG/24 HOURS TOPICAL PATCH TD SCH (10:23)
[2020-07-05] MEDS: PANTOPRAZOLE 20 MG TABLET PO SCH (10:23)
[2020-07-05 10:39] LABS: HEMATOCRIT 39.1 % (32.4-45.2); HEMOGLOBIN 12.8 GM/dL (10.7-15.3); MCH 27.9 pg (25.7-33.7); MCHC 32.8 g/dl (32.0-36.0); MEAN CELL VOLUME 85.3 fl (80-96); MEAN PLT VOLUME 9.1 fl (7.5-11.1); PLATELET COUNT 271 K/MM3 (134-434); RBC 4.59 M/mm3 (3.60-5.2); RDW 14.7 % (11.6-15.6); WHITE BLOOD COUNT 4.4 K/mm3 (4.0-10.0)
[2020-07-05 11:22] LABS: POTASSIUM 3.3 mmol/L (3.5-5.1)
[2020-07-05 11:36] LABS: CALCIUM 9.4 mg/dL (8.5-10.1)
[2020-07-05 11:39] LABS: ALBUMIN 3.6 g/dl (3.4-5.0); BLOOD UREA NITROGEN 18.1 mg/dL (7-18)
[2020-07-05 11:41] LABS: BILIRUBIN,TOTAL 0.4 mg/dL (0.2-1); CREATININE 0.9 mg/dL (0.55-1.3)
[2020-07-05 11:43] LABS: TOT PROT 8.2 g/dl (6.4-8.2)
[2020-07-05] MEDS: POTASSIUM CHLORIDE TABS 20 MEQ TABLET.ER (FP) PO SCH ×2 (13:02→22:17)
[2020-07-05] MEDS: ALBUTEROL SO4 HFA INHALER IH PRN (13:24)
[2020-07-05] MEDS: MELATONIN 5 MG TABLETS PO SCH (22:17)
[2020-07-05] MEDS: QUEtiapine FUMARATE 200 MG TABLET PO SCH (22:17)
[2020-07-05] MEDS: THIAMINE HCL 100 MG TABLET (FP) PO SCH (22:17)
[2020-07-05] MEDS: ATORVASTATIN CA 20 MG TABLET (FP) PO SCH (22:17)
[2020-07-06] MEDS: chlordiazePOXIDE HCL 25 MG CAPSULE PO SCH ×4 (05:47→22:15)
[2020-07-06] MEDS: PRENATAL VITAMINS W/ FOLIC ACID TABLET (FP) PO SCH (09:09)
[2020-07-06] MEDS: amLODIPine BESYLATE 10 MG TABLET (FP) PO SCH (09:09)
[2020-07-06] MEDS: BICTEGRAV/EMTRICIT/TENOFOV (BIKTARVY) 50-200-25 MG TABLET PO SCH (09:09)
[2020-07-06] MEDS: HYDROCHLOROTHIAZIDE 25 MG TABLET (FP) PO SCH (09:09)
[2020-07-06] MEDS: ASPIRIN COATED 81 MG TABLET.EC PO SCH (09:09)
[2020-07-06] MEDS: POTASSIUM CHLORIDE TABS 20 MEQ TABLET.ER (FP) PO SCH ×2 (09:10→22:15)
[2020-07-06] MEDS: SERTRALINE HCL 50 MG TABLET (FP) PO SCH (09:10)
[2020-07-06] MEDS: FLUTICASONE PROP 0.05% 16 GM NASAL SPRAY NS SCH ×2 (09:10→22:16)
[2020-07-06] MEDS: KETOCONAZOLE 2% CREAM - 60GM TUBE TP SCH (09:11)
[2020-07-06] MEDS: NICOTINE 21 MG/24 HOURS TOPICAL PATCH TD SCH (09:11)
[2020-07-06] MEDS: TIOTROPIUM BROMIDE 2.5 MCG (SPIRIVA) RESPIMAT INHALER IH SCH (09:12)
[2020-07-06] MEDS: PANTOPRAZOLE 20 MG TABLET PO SCH (09:59)
[2020-07-06] MEDS: NICOTINE POLACRILEX 2 MG GUM BUC PRN ×2 (12:29→18:39)
[2020-07-06] MEDS ORDERED: PENICILLIN G BENZATHINE 2,400,000 UNIT/4 ML PFS IM ONE (12:47)
[2020-07-06] MEDS: MELATONIN 5 MG TABLETS PO SCH (22:14)
[2020-07-06] MEDS: THIAMINE HCL 100 MG TABLET (FP) PO SCH (22:15)
[2020-07-06] MEDS: ATORVASTATIN CA 20 MG TABLET (FP) PO SCH (22:15)
[2020-07-06] MEDS: QUEtiapine FUMARATE 200 MG TABLET PO SCH (22:15)
[2020-07-07] MEDS ORDERED: chlordiazePOXIDE HCL 10 MG CAPSULE PO PRN
[2020-07-07] MEDS: chlordiazePOXIDE HCL 10 MG CAPSULE PO SCH ×4 (05:41→22:06)
[2020-07-07] MEDS: FLUTICASONE PROP 0.05% 16 GM NASAL SPRAY NS SCH ×2 (10:11→22:05)
[2020-07-07] MEDS: PRENATAL VITAMINS W/ FOLIC ACID TABLET (FP) PO SCH (10:12)
[2020-07-07] MEDS: PANTOPRAZOLE 20 MG TABLET PO SCH (10:13)
[2020-07-07] MEDS: HYDROCHLOROTHIAZIDE 25 MG TABLET (FP) PO SCH (10:14)
[2020-07-07] MEDS: KETOCONAZOLE 2% CREAM - 60GM TUBE TP SCH (10:14)
[2020-07-07] MEDS: ASPIRIN COATED 81 MG TABLET.EC PO SCH (10:14)
[2020-07-07] MEDS: SERTRALINE HCL 50 MG TABLET (FP) PO SCH (10:14)
[2020-07-07] MEDS: NICOTINE 21 MG/24 HOURS TOPICAL PATCH TD SCH (10:14)
[2020-07-07] MEDS: amLODIPine BESYLATE 10 MG TABLET (FP) PO SCH (10:14)
[2020-07-07] MEDS: TIOTROPIUM BROMIDE 2.5 MCG (SPIRIVA) RESPIMAT INHALER IH SCH (10:15)
[2020-07-07] MEDS: POTASSIUM CHLORIDE TABS 20 MEQ TABLET.ER (FP) PO SCH (10:15)
[2020-07-07] MEDS: BICTEGRAV/EMTRICIT/TENOFOV (BIKTARVY) 50-200-25 MG TABLET PO SCH (10:18)
[2020-07-07] MEDS: NICOTINE POLACRILEX 2 MG GUM BUC PRN (18:07)
[2020-07-07] MEDS: ALBUTEROL SO4 HFA INHALER IH PRN (18:32)
[2020-07-07] MEDS ORDERED: QUEtiapine FUMARATE 100 MG TABLET (FP) ONE (21:05)
[2020-07-07] MEDS: THIAMINE HCL 100 MG TABLET (FP) PO SCH (22:04)
[2020-07-07] MEDS: ATORVASTATIN CA 20 MG TABLET (FP) PO SCH (22:05)
[2020-07-07] MEDS: MELATONIN 5 MG TABLETS PO SCH (22:05)
[2020-07-07] MEDS: QUEtiapine FUMARATE 300 MG TABLET PO SCH (22:06)
[2020-07-08] MEDS: chlordiazePOXIDE HCL 10 MG CAPSULE PO SCH ×2 (05:53→17:55)
[2020-07-08] MEDS: BICTEGRAV/EMTRICIT/TENOFOV (BIKTARVY) 50-200-25 MG TABLET PO SCH (09:39)
[2020-07-08] MEDS: NICOTINE 21 MG/24 HOURS TOPICAL PATCH TD SCH (09:44)
[2020-07-08] MEDS: KETOCONAZOLE 2% CREAM - 60GM TUBE TP SCH (09:44)
[2020-07-08] MEDS: TIOTROPIUM BROMIDE 2.5 MCG (SPIRIVA) RESPIMAT INHALER IH SCH (09:44)
[2020-07-08] MEDS: FLUTICASONE PROP 0.05% 16 GM NASAL SPRAY NS SCH ×2 (09:44→22:11)
[2020-07-08] MEDS: PANTOPRAZOLE 20 MG TABLET PO SCH (09:45)
[2020-07-08] MEDS: amLODIPine BESYLATE 10 MG TABLET (FP) PO SCH (09:45)
[2020-07-08] MEDS: SERTRALINE HCL 50 MG TABLET (FP) PO SCH (09:45)
[2020-07-08] MEDS: ASPIRIN COATED 81 MG TABLET.EC PO SCH (09:45)
[2020-07-08] MEDS: PRENATAL VITAMINS W/ FOLIC ACID TABLET (FP) PO SCH (09:46)
[2020-07-08] MEDS: HYDROCHLOROTHIAZIDE 25 MG TABLET (FP) PO SCH (09:47)
[2020-07-08] MEDS ORDERED: QUEtiapine FUMARATE 100 MG TABLET (FP) ONE (20:55)
[2020-07-08] MEDS: QUEtiapine FUMARATE 300 MG TABLET PO SCH (22:11)
[2020-07-08] MEDS: MELATONIN 5 MG TABLETS PO SCH (22:11)
[2020-07-08] MEDS: THIAMINE HCL 100 MG TABLET (FP) PO SCH (22:11)
[2020-07-08] MEDS: ATORVASTATIN CA 20 MG TABLET (FP) PO SCH (22:11)
[2020-07-09] MEDS ORDERED: chlordiazePOXIDE HCL 10 MG CAPSULE PO ONE (05:00)
[2020-07-09] MEDS: FLUTICASONE PROP 0.05% 16 GM NASAL SPRAY NS SCH (10:23)
[2020-07-09] MEDS: HYDROCHLOROTHIAZIDE 25 MG TABLET (FP) PO SCH (10:23)
[2020-07-09] MEDS: amLODIPine BESYLATE 10 MG TABLET (FP) PO SCH (10:23)
[2020-07-09] MEDS: NICOTINE 21 MG/24 HOURS TOPICAL PATCH TD SCH (10:24)
[2020-07-09] MEDS: BICTEGRAV/EMTRICIT/TENOFOV (BIKTARVY) 50-200-25 MG TABLET PO SCH (10:24)
[2020-07-09] MEDS: PRENATAL VITAMINS W/ FOLIC ACID TABLET (FP) PO SCH (10:24)
[2020-07-09] MEDS: KETOCONAZOLE 2% CREAM - 60GM TUBE TP SCH (10:24)
[2020-07-09] MEDS: TIOTROPIUM BROMIDE 2.5 MCG (SPIRIVA) RESPIMAT INHALER IH SCH (10:25)
[2020-07-09] MEDS: SERTRALINE HCL 50 MG TABLET (FP) PO SCH (10:27)
[2020-07-09] MEDS: PANTOPRAZOLE 20 MG TABLET PO SCH (10:27)
[2020-07-09] MEDS: ASPIRIN COATED 81 MG TABLET.EC PO SCH (10:27)
[2020-07-09 13:57] VITALS: TEMP 97.1
[2020-07-09 18:20] VITALS: BP 140/96; PULSE 77
== END 2020-07-09 18:45 | disposition other institution (70) | DRG 774 ==
LOC: YASAS 11:14 → Y3N 12:53
PROVIDERS: ADMIT Allergy & Immunology; ATTEND Allergy & Immunology
PROC: HZ2ZZZZ Detoxification Services for Substance Abuse Treatment (ICD-10-PCS; principal; 2020-07-04)
DX: F10.230 Alcohol dependence with withdrawal, uncomplicated (principal); F14.20 Cocaine dependence, uncomplicated; F17.210 Nicotine dependence, cigarettes, uncomplicated; F19.24 Other psychoactive substance dependence with psychoactive substance-induced mood disorder; F32.9 Major depressive disorder, single episode, unspecified; Z21 Asymptomatic human immunodeficiency virus [HIV] infection status; E78.5 Hyperlipidemia, unspecified; I10 Essential (primary) hypertension; J43.8 Other emphysema; J45.20 Mild intermittent asthma, uncomplicated; M16.12 Unilateral primary osteoarthritis, left hip; M54.5 Low back pain; G89.29 Other chronic pain; B35.3 Tinea pedis; J30.9 Allergic rhinitis, unspecified; Z86.19 Personal history of other infectious and parasitic diseases; Z88.1 Allergy status to other antibiotic agents; Z88.2 Allergy status to sulfonamides; Z88.8 Allergy status to other drugs, medicaments and biological substances; Z91.013 Allergy to seafood; Z91.018 Allergy to other foods
CPT/HCPCS: 36415; 80053; 81025; 84132; 85027; 86593; 86780; C9803; U0003

== ENCOUNTER 2020-07-09 19:19 | Inpatient (IN) | payer OTHER ==
[2020-07-09] MEDS ORDERED: hydrOXYzine PAMOATE 25 MG CAPSULE (FP) PO PRN (21:00)
[2020-07-09] MEDS ORDERED: P-EPHED 60MG/TRIPROLIDI 2.5MG TABLET PO PRN (21:00)
[2020-07-09] MEDS ORDERED: MAGNESIUM CITRATE 300 ML BOTTLE PO PRN (21:00)
[2020-07-09] MEDS ORDERED: LOPERAMIDE HCL 2 MG CAPSULE PO PRN (21:00)
[2020-07-09] MEDS ORDERED: MAGNESIUM HYDROX 2400MG/30ML ORAL SUSPENSION 30 ML CUP PO PRN (21:00)
[2020-07-09] MEDS ORDERED: guaiFENesin 200 MG/10 ML 10 ML UNIT-DOSE CUPS PO PRN (21:00)
[2020-07-09] MEDS ORDERED: ACETAMINOPHEN 325 MG TABLET (FP) PO PRN (21:00)
[2020-07-09] MEDS ORDERED: MENTHOL/PHENOL 1 EACH UD MM PRN (21:00)
[2020-07-09] MEDS ORDERED: MAG HYDROX/AL HYDROX/SIMETH 30 ML UNIT-DOSE CUP PO PRN (21:00)
[2020-07-09] MEDS ORDERED: ALBUTEROL SO4 HFA INHALER IH PRN (22:48)
[2020-07-09] MEDS: THIAMINE HCL 100 MG TABLET (FP) PO SCH (23:21)
[2020-07-09] MEDS: MELATONIN 5 MG TABLETS PO SCH (23:21)
[2020-07-10] MEDS: amLODIPine BESYLATE 10 MG TABLET (FP) PO SCH (09:54)
[2020-07-10] MEDS: HYDROCHLOROTHIAZIDE 25 MG TABLET (FP) PO SCH (09:54)
[2020-07-10] MEDS: PANTOPRAZOLE 20 MG TABLET PO SCH (09:54)
[2020-07-10] MEDS: ASPIRIN COATED 81 MG TABLET.EC PO SCH (09:54)
[2020-07-10] MEDS: PRENATAL VITAMINS W/ FOLIC ACID TABLET (FP) PO SCH (09:55)
[2020-07-10] MEDS: NICOTINE 21 MG/24 HOURS TOPICAL PATCH TD SCH (09:55)
[2020-07-10] MEDS ORDERED: NICOTINE 7 MG/24 HOURS TOPICAL PATCH TD SCH (10:00)
[2020-07-10] MEDS: BICTEGRAV/EMTRICIT/TENOFOV (BIKTARVY) 50-200-25 MG TABLET PO SCH (10:20)
[2020-07-10] MEDS: TOLNAFTATE 1% CREAM 15 GM TUBE TP SCH ×2 (11:19→21:20)
[2020-07-10] MEDS ORDERED: PT OWN MED DRAWER 7, Y5N ONE (15:26)
[2020-07-10] MEDS: ATORVASTATIN CA 20 MG TABLET (FP) PO SCH (21:19)
[2020-07-10] MEDS: THIAMINE HCL 100 MG TABLET (FP) PO SCH (21:19)
[2020-07-10] MEDS: MELATONIN 5 MG TABLETS PO SCH (21:19)
[2020-07-10] MEDS: QUEtiapine FUMARATE 100 MG TABLET (FP) PO SCH (21:19)
[2020-07-10] MEDS: FLUTICASONE PROP 0.05% 16 GM NASAL SPRAY NS SCH (21:20)
[2020-07-10] MEDS: NICOTINE POLACRILEX 2 MG GUM BUC PRN (22:33)
[2020-07-11] MEDS ORDERED: PT OWN MED DRAWER 7, Y5N ONE (08:48)
[2020-07-11] MEDS: BICTEGRAV/EMTRICIT/TENOFOV (BIKTARVY) 50-200-25 MG TABLET PO SCH (09:39)
[2020-07-11] MEDS: PANTOPRAZOLE 20 MG TABLET PO SCH (09:40)
[2020-07-11] MEDS: FLUTICASONE PROP 0.05% 16 GM NASAL SPRAY NS SCH ×2 (09:40→21:17)
[2020-07-11] MEDS: HYDROCHLOROTHIAZIDE 25 MG TABLET (FP) PO SCH (09:40)
[2020-07-11] MEDS: ASPIRIN COATED 81 MG TABLET.EC PO SCH (09:40)
[2020-07-11] MEDS: amLODIPine BESYLATE 10 MG TABLET (FP) PO SCH (09:40)
[2020-07-11] MEDS: NICOTINE 21 MG/24 HOURS TOPICAL PATCH TD SCH (09:41)
[2020-07-11] MEDS: TIOTROPIUM BROMIDE 2.5 MCG (SPIRIVA) RESPIMAT INHALER IH SCH (09:41)
[2020-07-11] MEDS: TOLNAFTATE 1% CREAM 15 GM TUBE TP SCH ×2 (09:41→21:17)
[2020-07-11] MEDS: NICOTINE POLACRILEX 2 MG GUM BUC PRN ×3 (09:41→21:17)
[2020-07-11] MEDS: PRENATAL VITAMINS W/ FOLIC ACID TABLET (FP) PO SCH (09:41)
[2020-07-11] MEDS ORDERED: AMMONIUM LACTATE 12% LOTION 225 GM BOTTLE TP PRN (12:17)
[2020-07-11] MEDS: THIAMINE HCL 100 MG TABLET (FP) PO SCH (21:16)
[2020-07-11] MEDS: MELATONIN 5 MG TABLETS PO SCH (21:16)
[2020-07-11] MEDS: ATORVASTATIN CA 20 MG TABLET (FP) PO SCH (21:16)
[2020-07-11] MEDS: QUEtiapine FUMARATE 100 MG TABLET (FP) PO SCH (21:16)
[2020-07-12] MEDS: BICTEGRAV/EMTRICIT/TENOFOV (BIKTARVY) 50-200-25 MG TABLET PO SCH (07:37)
[2020-07-12] MEDS: NICOTINE POLACRILEX 2 MG GUM BUC PRN ×5 (07:37→21:05)
[2020-07-12] MEDS: ASPIRIN COATED 81 MG TABLET.EC PO SCH (10:25)
[2020-07-12] MEDS: PANTOPRAZOLE 20 MG TABLET PO SCH (10:25)
[2020-07-12] MEDS: HYDROCHLOROTHIAZIDE 25 MG TABLET (FP) PO SCH (10:26)
[2020-07-12] MEDS: amLODIPine BESYLATE 10 MG TABLET (FP) PO SCH (10:26)
[2020-07-12] MEDS: FLUTICASONE PROP 0.05% 16 GM NASAL SPRAY NS SCH ×2 (10:27→21:05)
[2020-07-12] MEDS: NICOTINE 21 MG/24 HOURS TOPICAL PATCH TD SCH (10:28)
[2020-07-12] MEDS: TOLNAFTATE 1% CREAM 15 GM TUBE TP SCH ×2 (10:28→21:05)
[2020-07-12] MEDS: PRENATAL VITAMINS W/ FOLIC ACID TABLET (FP) PO SCH (10:28)
[2020-07-12] MEDS: TIOTROPIUM BROMIDE 2.5 MCG (SPIRIVA) RESPIMAT INHALER IH SCH (10:29)
[2020-07-12] MEDS: THIAMINE HCL 100 MG TABLET (FP) PO SCH (21:04)
[2020-07-12] MEDS: QUEtiapine FUMARATE 100 MG TABLET (FP) PO SCH (21:04)
[2020-07-12] MEDS: MELATONIN 5 MG TABLETS PO SCH (21:04)
[2020-07-12] MEDS: ATORVASTATIN CA 20 MG TABLET (FP) PO SCH (21:04)
[2020-07-13] MEDS: BICTEGRAV/EMTRICIT/TENOFOV (BIKTARVY) 50-200-25 MG TABLET PO SCH (07:53)
[2020-07-13] MEDS: PRENATAL VITAMINS W/ FOLIC ACID TABLET (FP) PO SCH (09:50)
[2020-07-13] MEDS: NICOTINE 21 MG/24 HOURS TOPICAL PATCH TD SCH (09:51)
[2020-07-13] MEDS: ASPIRIN COATED 81 MG TABLET.EC PO SCH (09:51)
[2020-07-13] MEDS: HYDROCHLOROTHIAZIDE 25 MG TABLET (FP) PO SCH (09:51)
[2020-07-13] MEDS: PANTOPRAZOLE 20 MG TABLET PO SCH (09:51)
[2020-07-13] MEDS: amLODIPine BESYLATE 10 MG TABLET (FP) PO SCH (09:51)
[2020-07-13] MEDS: FLUTICASONE PROP 0.05% 16 GM NASAL SPRAY NS SCH ×2 (09:51→21:12)
[2020-07-13] MEDS: TIOTROPIUM BROMIDE 2.5 MCG (SPIRIVA) RESPIMAT INHALER IH SCH (09:52)
[2020-07-13] MEDS: TOLNAFTATE 1% CREAM 15 GM TUBE TP SCH ×2 (09:52→21:12)
[2020-07-13] MEDS: NICOTINE POLACRILEX 2 MG GUM BUC PRN ×5 (09:59→20:02)
[2020-07-13] MEDS ORDERED: MASKS NR ONE (14:08)
[2020-07-13] MEDS: QUEtiapine FUMARATE 100 MG TABLET (FP) PO SCH (21:10)
[2020-07-13] MEDS: ATORVASTATIN CA 20 MG TABLET (FP) PO SCH (21:10)
[2020-07-13] MEDS: MELATONIN 5 MG TABLETS PO SCH (21:11)
[2020-07-13] MEDS: THIAMINE HCL 100 MG TABLET (FP) PO SCH (21:11)
[2020-07-13] MEDS: IBUPROFEN 400 MG TABLET (FP) PO PRN (21:35)
[2020-07-14 06:59] VITALS: TEMP 97.3
[2020-07-14] MEDS: BICTEGRAV/EMTRICIT/TENOFOV (BIKTARVY) 50-200-25 MG TABLET PO SCH (07:10)
[2020-07-14] MEDS: NICOTINE POLACRILEX 2 MG GUM BUC PRN ×4 (07:10→21:17)
[2020-07-14] MEDS: HYDROCHLOROTHIAZIDE 25 MG TABLET (FP) PO SCH (10:03)
[2020-07-14] MEDS: PRENATAL VITAMINS W/ FOLIC ACID TABLET (FP) PO SCH (10:03)
[2020-07-14] MEDS: PANTOPRAZOLE 20 MG TABLET PO SCH (10:03)
[2020-07-14] MEDS: amLODIPine BESYLATE 10 MG TABLET (FP) PO SCH (10:03)
[2020-07-14] MEDS: FLUTICASONE PROP 0.05% 16 GM NASAL SPRAY NS SCH ×2 (10:03→21:17)
[2020-07-14] MEDS: NICOTINE 21 MG/24 HOURS TOPICAL PATCH TD SCH (10:03)
[2020-07-14] MEDS: ASPIRIN COATED 81 MG TABLET.EC PO SCH (10:03)
[2020-07-14] MEDS: TOLNAFTATE 1% CREAM 15 GM TUBE TP SCH ×2 (10:05→21:27)
[2020-07-14] MEDS: TIOTROPIUM BROMIDE 2.5 MCG (SPIRIVA) RESPIMAT INHALER IH SCH (10:05)
[2020-07-14] MEDS: IBUPROFEN 400 MG TABLET (FP) PO PRN (19:07)
[2020-07-14] MEDS: ATORVASTATIN CA 20 MG TABLET (FP) PO SCH (21:16)
[2020-07-14] MEDS: MELATONIN 5 MG TABLETS PO SCH (21:16)
[2020-07-14] MEDS: QUEtiapine FUMARATE 100 MG TABLET (FP) PO SCH (21:16)
[2020-07-14] MEDS: THIAMINE HCL 100 MG TABLET (FP) PO SCH (21:16)
[2020-07-15] MEDS: BICTEGRAV/EMTRICIT/TENOFOV (BIKTARVY) 50-200-25 MG TABLET PO SCH (07:23)
[2020-07-15] MEDS: amLODIPine BESYLATE 10 MG TABLET (FP) PO SCH (09:28)
[2020-07-15] MEDS: PRENATAL VITAMINS W/ FOLIC ACID TABLET (FP) PO SCH (09:28)
[2020-07-15] MEDS: PANTOPRAZOLE 20 MG TABLET PO SCH (09:28)
[2020-07-15] MEDS: HYDROCHLOROTHIAZIDE 25 MG TABLET (FP) PO SCH (09:28)
[2020-07-15] MEDS: ASPIRIN COATED 81 MG TABLET.EC PO SCH (09:28)
[2020-07-15] MEDS: NICOTINE POLACRILEX 2 MG GUM BUC PRN ×2 (09:29→12:50)
[2020-07-15] MEDS: NICOTINE 21 MG/24 HOURS TOPICAL PATCH TD SCH (09:29)
[2020-07-15] MEDS: TIOTROPIUM BROMIDE 2.5 MCG (SPIRIVA) RESPIMAT INHALER IH SCH (09:52)
[2020-07-15] MEDS: TOLNAFTATE 1% CREAM 15 GM TUBE TP SCH (09:52)
[2020-07-15] MEDS: FLUTICASONE PROP 0.05% 16 GM NASAL SPRAY NS SCH (09:52)
[2020-07-15 11:52] VITALS: BP 141/103; PULSE 70
[2020-07-15] MEDS ORDERED: PT OWN MED DRAWER 7, Y5N ONE (14:08)
== END 2020-07-15 14:25 | disposition home or self-care (01) | DRG 772 ==
LOC: YASAS 19:19 → Y3W 19:21
PROVIDERS: ADMIT Allergy & Immunology; ATTEND Allergy & Immunology
PROC: HZ42ZZZ Group Counseling for Substance Abuse Treatment, Cognitive-Behavioral (ICD-10-PCS; principal; 2020-07-09)
DX: F10.20 Alcohol dependence, uncomplicated (principal); F14.20 Cocaine dependence, uncomplicated; F17.210 Nicotine dependence, cigarettes, uncomplicated; F31.9 Bipolar disorder, unspecified; J43.8 Other emphysema; J45.20 Mild intermittent asthma, uncomplicated; K21.9 Gastro-esophageal reflux disease without esophagitis; G47.00 Insomnia, unspecified; F39 Unspecified mood [affective] disorder; B35.3 Tinea pedis; Z86.19 Personal history of other infectious and parasitic diseases
CPT/HCPCS: 36415; 83735; 93005; 93010; C9803; U0003

== ENCOUNTER 2021-02-12 10:47 | Inpatient (IN) | payer OTHER ==
[2021-02-12 12:25] VITALS: BMI 26.9
[2021-02-12] MEDS ORDERED: ACETAMINOPHEN 325 MG TABLET (FP) PO PRN ×2 (12:34)
[2021-02-12] MEDS ORDERED: ONDANSETRON *ODT* 4 MG TABLET SL PRN (12:34)
[2021-02-12] MEDS ORDERED: MAG HYDROX/AL HYDROX/SIMETH 30 ML UNIT-DOSE CUP PO PRN (12:34)
[2021-02-12] MEDS ORDERED: NICOTINE 10 MG CARTRIDGE (INHALER) IH PRN (12:34)
[2021-02-12] MEDS ORDERED: MAGNESIUM CITRATE 300 ML BOTTLE PO PRN (12:34)
[2021-02-12] MEDS ORDERED: IBUPROFEN 400 MG TABLET (FP) PO PRN (12:34)
[2021-02-12] MEDS ORDERED: MAGNESIUM HYDROX 2400MG/30ML ORAL SUSPENSION 30 ML CUP PO PRN (12:34)
[2021-02-12] MEDS ORDERED: diazePAM 5 MG TABLET PO PRN (12:34)
[2021-02-12] MEDS ORDERED: BISMUTH SUBSALICYLATE 262 MG/15 ML BTL PO PRN (12:34)
[2021-02-12] MEDS ORDERED: MENTHOL/PHENOL 1 EACH UD MM PRN (12:34)
[2021-02-12] MEDS ORDERED: FLUTICASONE PROP 0.05% 16 GM NASAL SPRAY NS PRN (12:36)
[2021-02-12] MEDS: hydrOXYzine PAMOATE 25 MG CAPSULE (FP) PO SCH ×3 (13:44→22:04)
[2021-02-12] MEDS: PRENATAL VITAMINS W/ FOLIC ACID TABLET (FP) PO SCH (13:44)
[2021-02-12 15:04] LABS: HEMATOCRIT 42.1 % (32.4-45.2); HEMOGLOBIN 14.2 GM/dL (10.7-15.3); MCH 28.5 pg (25.7-33.7); MCHC 33.7 g/dl (32.0-36.0); MEAN CELL VOLUME 84.6 fl (80-96); MEAN PLT VOLUME 7.8 fl (7.5-11.1); PLATELET COUNT 256 10^3/uL (134-434); RBC 4.98 M/mm3 (3.60-5.2); RDW 15.1 % (11.6-15.6); WHITE BLOOD COUNT 3.6 K/mm3 (4.0-10.0)
[2021-02-12 15:31] LABS: BLOOD UREA NITROGEN 16.9 mg/dL (7-18)
[2021-02-12 15:32] LABS: ALBUMIN 3.5 g/dl (3.4-5.0)
[2021-02-12 15:33] LABS: CREATININE 1.2 mg/dL (0.55-1.3)
[2021-02-12 15:34] LABS: BILIRUBIN,TOTAL 0.3 mg/dL (0.2-1); TOT PROT 8.1 g/dl (6.4-8.2)
[2021-02-12] MEDS ORDERED: amLODIPine BESYLATE 10 MG TABLET (FP) PO ONE (15:39)
[2021-02-12] MEDS: METHOCARBAMOL 500 MG TABLET PO PRN (17:15)
[2021-02-12] MEDS: diazePAM 5 MG TABLET PO SCH ×2 (17:15→22:05)
[2021-02-12] MEDS: THIAMINE HCL 100 MG TABLET (FP) PO SCH (22:04)
[2021-02-12] MEDS: ATORVASTATIN CA 20 MG TABLET (FP) PO SCH (22:04)
[2021-02-12] MEDS: MELATONIN 5 MG TABLETS PO SCH (22:04)
[2021-02-12] MEDS: QUEtiapine FUMARATE 200 MG TABLET PO SCH (22:04)
[2021-02-13] MEDS: diazePAM 5 MG TABLET PO SCH ×4 (06:53→22:04)
[2021-02-13] MEDS: hydrOXYzine PAMOATE 25 MG CAPSULE (FP) PO SCH (06:53)
[2021-02-13] MEDS: METHOCARBAMOL 500 MG TABLET PO PRN ×2 (06:54→17:34)
[2021-02-13] MEDS ORDERED: hydrOXYzine PAMOATE 25 MG CAPSULE (FP) PO PRN (08:59)
[2021-02-13] MEDS: SERTRALINE HCL 50 MG TABLET (FP) PO SCH (10:07)
[2021-02-13] MEDS: amLODIPine BESYLATE 10 MG TABLET (FP) PO SCH (10:07)
[2021-02-13] MEDS: PANTOPRAZOLE 20 MG TABLET PO SCH (10:07)
[2021-02-13] MEDS: ASPIRIN COATED 81 MG TABLET.EC PO SCH (10:07)
[2021-02-13] MEDS: PRENATAL VITAMINS W/ FOLIC ACID TABLET (FP) PO SCH (10:07)
[2021-02-13] MEDS: TIOTROPIUM BROMIDE 2.5 MCG (SPIRIVA) RESPIMAT INHALER IH SCH (10:08)
[2021-02-13] MEDS: HYDROCHLOROTHIAZIDE 25 MG TABLET (FP) PO SCH (10:08)
[2021-02-13] MEDS: NICOTINE 14 MG/24 HOURS TOPICAL PATCH TD SCH (10:08)
[2021-02-13] MEDS: BICTEGRAV/EMTRICIT/TENOFOV (BIKTARVY) 50-200-25 MG TABLET PO SCH (10:25)
[2021-02-13] MEDS: ALBUTEROL SO4 HFA INHALER IH PRN (14:24)
[2021-02-13] MEDS: POTASSIUM CHLORIDE TABS 20 MEQ TABLET.ER (FP) PO SCH ×2 (14:24→22:04)
[2021-02-13] MEDS: ATORVASTATIN CA 20 MG TABLET (FP) PO SCH (22:04)
[2021-02-13] MEDS: THIAMINE HCL 100 MG TABLET (FP) PO SCH (22:04)
[2021-02-13] MEDS: MELATONIN 5 MG TABLETS PO SCH (22:04)
[2021-02-13] MEDS: QUEtiapine FUMARATE 200 MG TABLET PO SCH (22:04)
[2021-02-14] MEDS: diazePAM 5 MG TABLET PO SCH ×3 (05:32→22:20)
[2021-02-14] MEDS: ALBUTEROL SO4 HFA INHALER IH PRN ×2 (10:21→20:51)
[2021-02-14] MEDS: amLODIPine BESYLATE 10 MG TABLET (FP) PO SCH (10:22)
[2021-02-14] MEDS: ASPIRIN COATED 81 MG TABLET.EC PO SCH (10:22)
[2021-02-14] MEDS: SERTRALINE HCL 50 MG TABLET (FP) PO SCH (10:22)
[2021-02-14] MEDS: PANTOPRAZOLE 20 MG TABLET PO SCH (10:22)
[2021-02-14] MEDS: NICOTINE 14 MG/24 HOURS TOPICAL PATCH TD SCH (10:24)
[2021-02-14] MEDS: PRENATAL VITAMINS W/ FOLIC ACID TABLET (FP) PO SCH (10:24)
[2021-02-14] MEDS: POTASSIUM CHLORIDE TABS 20 MEQ TABLET.ER (FP) PO SCH ×2 (10:24→22:23)
[2021-02-14] MEDS: TIOTROPIUM BROMIDE 2.5 MCG (SPIRIVA) RESPIMAT INHALER IH SCH (10:24)
[2021-02-14] MEDS: HYDROCHLOROTHIAZIDE 25 MG TABLET (FP) PO SCH (10:25)
[2021-02-14] MEDS: BICTEGRAV/EMTRICIT/TENOFOV (BIKTARVY) 50-200-25 MG TABLET PO SCH (10:27)
[2021-02-14] MEDS ORDERED: COLLOIDAL OATMEAL 1 BAR EACH TP PRN (12:19)
[2021-02-14] MEDS: HYDROCORTISONE 1% TOPICAL CREAM 30 GM TUBE TP SCH ×2 (13:34→22:23)
[2021-02-14] MEDS: NICOTINE POLACRILEX 4 MG GUM BUC PRN ×2 (17:59→20:52)
[2021-02-14] MEDS: ATORVASTATIN CA 20 MG TABLET (FP) PO SCH (22:19)
[2021-02-14] MEDS: QUEtiapine FUMARATE 200 MG TABLET PO SCH (22:19)
[2021-02-14] MEDS: METHOCARBAMOL 500 MG TABLET PO PRN (22:19)
[2021-02-14] MEDS: THIAMINE HCL 100 MG TABLET (FP) PO SCH (22:19)
[2021-02-14] MEDS: MELATONIN 5 MG TABLETS PO SCH (22:20)
[2021-02-15] MEDS ORDERED: diazePAM 5 MG TABLET PO SCH (06:00)
[2021-02-15] MEDS: BICTEGRAV/EMTRICIT/TENOFOV (BIKTARVY) 50-200-25 MG TABLET PO SCH (07:41)
[2021-02-15] MEDS ORDERED: cloNIDine HCL 0.1 MG TABLET PO ONE (07:45)
[2021-02-15 08:53] VITALS: BP 145/103; PULSE 81; TEMP 97.3
[2021-02-15] MEDS: POTASSIUM CHLORIDE TABS 20 MEQ TABLET.ER (FP) PO SCH (09:27)
[2021-02-15] MEDS: ASPIRIN COATED 81 MG TABLET.EC PO SCH (09:27)
[2021-02-15] MEDS: SERTRALINE HCL 50 MG TABLET (FP) PO SCH (09:28)
[2021-02-15] MEDS: PRENATAL VITAMINS W/ FOLIC ACID TABLET (FP) PO SCH (09:28)
[2021-02-15] MEDS: PANTOPRAZOLE 20 MG TABLET PO SCH (09:28)
[2021-02-15] MEDS: amLODIPine BESYLATE 10 MG TABLET (FP) PO SCH (09:28)
[2021-02-15] MEDS: ALBUTEROL SO4 HFA INHALER IH PRN (09:29)
[2021-02-16] MEDS ORDERED: diazePAM 5 MG TABLET PO ONE (06:00)
== END 2021-02-15 09:43 | disposition home or self-care (01) | DRG 774 ==
LOC: YASAS 10:47 → Y3N 12:42
PROVIDERS: ADMIT Allergy & Immunology; ATTEND Allergy & Immunology
PROC: HZ2ZZZZ Detoxification Services for Substance Abuse Treatment (ICD-10-PCS; principal; 2021-02-12)
DX: F10.230 Alcohol dependence with withdrawal, uncomplicated (principal); F14.20 Cocaine dependence, uncomplicated; F17.210 Nicotine dependence, cigarettes, uncomplicated; F19.282 Other psychoactive substance dependence with psychoactive substance-induced sleep disorder; F19.280 Other psychoactive substance dependence with psychoactive substance-induced anxiety disorder; F19.24 Other psychoactive substance dependence with psychoactive substance-induced mood disorder; F41.8 Other specified anxiety disorders; Z21 Asymptomatic human immunodeficiency virus [HIV] infection status; A53.0 Latent syphilis, unspecified as early or late; J43.8 Other emphysema; G62.9 Polyneuropathy, unspecified; E78.5 Hyperlipidemia, unspecified; E87.6 Hypokalemia; I10 Essential (primary) hypertension; K21.9 Gastro-esophageal reflux disease without esophagitis; M16.12 Unilateral primary osteoarthritis, left hip; M54.50 Low back pain, unspecified; G89.29 Other chronic pain; Z86.59 Personal history of other mental and behavioral disorders; Z86.79 Personal history of other diseases of the circulatory system
CPT/HCPCS: 36415; 80053; 81025; 85027; 86593; 86780; C9803; J0735; U0003; U0005

== ENCOUNTER 2021-07-22 09:34 | Inpatient (IN) | payer OTHER ==
[2021-07-22 11:56] VITALS: BMI 26.6
[2021-07-22] MEDS ORDERED: MAGNESIUM CITRATE 300 ML BOTTLE PO PRN (12:44)
[2021-07-22] MEDS ORDERED: ONDANSETRON *ODT* 4 MG TABLET SL PRN (12:44)
[2021-07-22] MEDS ORDERED: LOPERAMIDE HCL 2 MG CAPSULE PO PRN (12:44)
[2021-07-22] MEDS ORDERED: BENZOCAINE/MENTHOL (CHLORASEPTIC ) LOZENGE MM PRN (12:44)
[2021-07-22] MEDS ORDERED: DICYCLOMINE HCL 10 MG CAPSULE PO PRN (12:44)
[2021-07-22] MEDS ORDERED: IBUPROFEN 400 MG TABLET (FP) PO PRN (12:44)
[2021-07-22] MEDS ORDERED: MAGNESIUM HYDROX 2400MG/30ML ORAL SUSPENSION 30 ML CUP PO PRN (12:44)
[2021-07-22] MEDS ORDERED: MAG HYDROX/AL HYDROX/SIMETH 30 ML UNIT-DOSE CUP PO PRN (12:44)
[2021-07-22] MEDS ORDERED: chlordiazePOXIDE HCL 25 MG CAPSULE PO PRN (12:44)
[2021-07-22] MEDS ORDERED: ACETAMINOPHEN 325 MG TABLET (FP) PO PRN ×2 (12:44)
[2021-07-22] MEDS ORDERED: NICOTINE 10 MG CARTRIDGE (INHALER) IH PRN (12:44)
[2021-07-22] MEDS ORDERED: BISMUTH SUBSALICYLATE 524 MG/30 ML PO PRN (12:44)
[2021-07-22] MEDS: hydrOXYzine PAMOATE 25 MG CAPSULE (FP) PO SCH ×3 (14:20→22:21)
[2021-07-22] MEDS: PANTOPRAZOLE 20 MG TABLET PO SCH (15:16)
[2021-07-22] MEDS: HYDROCHLOROTHIAZIDE 25 MG TABLET (FP) PO SCH (15:16)
[2021-07-22] MEDS: ASPIRIN COATED 81 MG TABLET.EC PO SCH (15:16)
[2021-07-22] MEDS: amLODIPine BESYLATE 10 MG TABLET (FP) PO SCH (15:16)
[2021-07-22] MEDS: chlordiazePOXIDE HCL 25 MG CAPSULE PO SCH ×2 (17:57→22:21)
[2021-07-22] MEDS: ALBUTEROL SO4 HFA INHALER IH PRN (21:27)
[2021-07-22] MEDS ORDERED: MELATONIN 5 MG TABLETS PO SCH (22:00)
[2021-07-22] MEDS: ATORVASTATIN CA 20 MG TABLET (FP) PO SCH (22:21)
[2021-07-22] MEDS: THIAMINE HCL 100 MG TABLET (FP) PO SCH (22:21)
[2021-07-23] MEDS: ALBUTEROL SO4 HFA INHALER IH PRN ×3 (01:41→15:27)
[2021-07-23] MEDS: chlordiazePOXIDE HCL 25 MG CAPSULE PO SCH ×4 (06:12→22:27)
[2021-07-23] MEDS: hydrOXYzine PAMOATE 25 MG CAPSULE (FP) PO SCH ×2 (06:15→10:10)
[2021-07-23] MEDS: ASPIRIN COATED 81 MG TABLET.EC PO SCH (10:10)
[2021-07-23] MEDS: PANTOPRAZOLE 20 MG TABLET PO SCH (10:10)
[2021-07-23] MEDS: PRENATAL VITAMINS W/ FOLIC ACID TABLET (FP) PO SCH (10:10)
[2021-07-23] MEDS: HYDROCHLOROTHIAZIDE 25 MG TABLET (FP) PO SCH (10:10)
[2021-07-23] MEDS: BICTEGRAV/EMTRICIT/TENOFOV (BIKTARVY) 50-200-25 MG TABLET PO SCH (10:12)
[2021-07-23] MEDS: amLODIPine BESYLATE 10 MG TABLET (FP) PO SCH (11:50)
[2021-07-23 12:07] LABS: HEMATOCRIT 39.5 % (32.4-45.2); HEMOGLOBIN 13.1 GM/dL (10.7-15.3); MCH 28.1 pg (25.7-33.7); MCHC 33.1 g/dl (32.0-36.0); MEAN PLT VOLUME 8.2 fl (7.5-11.1); PLATELET COUNT 231 10^3/uL (134-434); RBC 4.65 M/mm3 (3.60-5.2); WHITE BLOOD COUNT 3.5 K/mm3 (4.0-10.0)
[2021-07-23 12:20] LABS: ALBUMIN 3.2 g/dl (3.4-5.0); BLOOD UREA NITROGEN 18.4 mg/dL (7-18); CALCIUM 9.3 mg/dL (8.5-10.1)
[2021-07-23 12:25] LABS: BILIRUBIN,TOTAL 0.5 mg/dL (0.2-1); TOT PROT 7.1 g/dl (6.4-8.2)
[2021-07-23] MEDS: SERTRALINE HCL 50 MG TABLET (FP) PO SCH (13:54)
[2021-07-23] MEDS: NICOTINE POLACRILEX 2 MG GUM BUC PRN (13:56)
[2021-07-23] MEDS: hydrOXYzine PAMOATE 25 MG CAPSULE (FP) PO PRN ×2 (17:55→22:26)
[2021-07-23] MEDS: THIAMINE HCL 100 MG TABLET (FP) PO SCH (22:26)
[2021-07-23] MEDS: QUEtiapine FUMARATE 300 MG TABLET PO SCH (22:26)
[2021-07-23] MEDS: ATORVASTATIN CA 20 MG TABLET (FP) PO SCH (22:26)
[2021-07-24] MEDS: chlordiazePOXIDE HCL 25 MG CAPSULE PO SCH ×4 (05:51→22:18)
[2021-07-24 08:06] LABS: SARS-CoV-2 NAA Not Detected (Not Detected)
[2021-07-24] MEDS: FLUTICASONE PROP 0.05% 16 GM NASAL SPRAY NS PRN ×2 (10:26→22:20)
[2021-07-24] MEDS: HYDROCHLOROTHIAZIDE 25 MG TABLET (FP) PO SCH (10:26)
[2021-07-24] MEDS: amLODIPine BESYLATE 10 MG TABLET (FP) PO SCH (10:26)
[2021-07-24] MEDS: PRENATAL VITAMINS W/ FOLIC ACID TABLET (FP) PO SCH (10:27)
[2021-07-24] MEDS: ASPIRIN COATED 81 MG TABLET.EC PO SCH (10:27)
[2021-07-24] MEDS: PANTOPRAZOLE 20 MG TABLET PO SCH (10:27)
[2021-07-24] MEDS: SERTRALINE HCL 50 MG TABLET (FP) PO SCH (10:27)
[2021-07-24] MEDS: BICTEGRAV/EMTRICIT/TENOFOV (BIKTARVY) 50-200-25 MG TABLET PO SCH (10:27)
[2021-07-24] MEDS ORDERED: LISINOPRIL 10 MG TABLET PO SCH (11:30)
[2021-07-24] MEDS ORDERED: ALBUTEROL SO4 0.083% IH SOL 2.5 MG/3 ML VIAL.NEB. NEB PRN (14:47)
[2021-07-24] MEDS: hydrOXYzine PAMOATE 25 MG CAPSULE (FP) PO PRN (18:25)
[2021-07-24] MEDS: METHOCARBAMOL 500 MG TABLET PO PRN (18:25)
[2021-07-24] MEDS: QUEtiapine FUMARATE 300 MG TABLET PO SCH (22:16)
[2021-07-24] MEDS: THIAMINE HCL 100 MG TABLET (FP) PO SCH (22:16)
[2021-07-24] MEDS: ATORVASTATIN CA 20 MG TABLET (FP) PO SCH (22:17)
[2021-07-24] MEDS: ALBUTEROL SO4 HFA INHALER IH PRN (22:20)
[2021-07-25] MEDS ORDERED: chlordiazePOXIDE HCL 10 MG CAPSULE PO PRN
[2021-07-25] MEDS: chlordiazePOXIDE HCL 10 MG CAPSULE PO SCH ×4 (06:18→22:18)
[2021-07-25] MEDS: ASPIRIN COATED 81 MG TABLET.EC PO SCH (10:26)
[2021-07-25] MEDS: HYDROCHLOROTHIAZIDE 25 MG TABLET (FP) PO SCH (10:26)
[2021-07-25] MEDS: amLODIPine BESYLATE 10 MG TABLET (FP) PO SCH (10:26)
[2021-07-25] MEDS: SERTRALINE HCL 50 MG TABLET (FP) PO SCH (10:26)
[2021-07-25] MEDS: BICTEGRAV/EMTRICIT/TENOFOV (BIKTARVY) 50-200-25 MG TABLET PO SCH (10:28)
[2021-07-25] MEDS: NICOTINE POLACRILEX 2 MG GUM BUC PRN (10:30)
[2021-07-25] MEDS: PRENATAL VITAMINS W/ FOLIC ACID TABLET (FP) PO SCH (10:48)
[2021-07-25] MEDS: PANTOPRAZOLE 20 MG TABLET PO SCH (10:48)
[2021-07-25] MEDS: ALBUTEROL SO4 HFA INHALER IH PRN (12:21)
[2021-07-25] MEDS: PATIENT,S OWN MED:ALBUTEROL SO4 HFA INHALER IH PRN ×2 (17:13→22:22)
[2021-07-25] MEDS: hydrOXYzine PAMOATE 25 MG CAPSULE (FP) PO PRN ×2 (18:23→22:18)
[2021-07-25] MEDS: QUEtiapine FUMARATE 300 MG TABLET PO SCH (22:05)
[2021-07-25] MEDS: THIAMINE HCL 100 MG TABLET (FP) PO SCH (22:07)
[2021-07-25] MEDS: ATORVASTATIN CA 20 MG TABLET (FP) PO SCH (22:18)
[2021-07-26] MEDS: chlordiazePOXIDE HCL 10 MG CAPSULE PO SCH ×2 (05:17→17:39)
[2021-07-26] MEDS: PATIENT,S OWN MED:ALBUTEROL SO4 HFA INHALER IH PRN ×2 (05:19→09:50)
[2021-07-26] MEDS: FLUTICASONE PROP 0.05% 16 GM NASAL SPRAY NS PRN (09:50)
[2021-07-26] MEDS: PANTOPRAZOLE 20 MG TABLET PO SCH (09:51)
[2021-07-26] MEDS: ASPIRIN COATED 81 MG TABLET.EC PO SCH (09:51)
[2021-07-26] MEDS: hydrOXYzine PAMOATE 25 MG CAPSULE (FP) PO PRN ×3 (09:51→22:40)
[2021-07-26] MEDS: SERTRALINE HCL 50 MG TABLET (FP) PO SCH (09:51)
[2021-07-26] MEDS: HYDROCHLOROTHIAZIDE 25 MG TABLET (FP) PO SCH (09:51)
[2021-07-26] MEDS: amLODIPine BESYLATE 10 MG TABLET (FP) PO SCH (09:51)
[2021-07-26] MEDS: PRENATAL VITAMINS W/ FOLIC ACID TABLET (FP) PO SCH (09:51)
[2021-07-26] MEDS: BICTEGRAV/EMTRICIT/TENOFOV (BIKTARVY) 50-200-25 MG TABLET PO SCH (09:51)
[2021-07-26] MEDS: METHOCARBAMOL 500 MG TABLET PO PRN ×2 (09:52→17:40)
[2021-07-26] MEDS: NICOTINE POLACRILEX 2 MG GUM BUC PRN (09:53)
[2021-07-26] MEDS: ATORVASTATIN CA 20 MG TABLET (FP) PO SCH (22:40)
[2021-07-26] MEDS: QUEtiapine FUMARATE 300 MG TABLET PO SCH (22:40)
[2021-07-26] MEDS: THIAMINE HCL 100 MG TABLET (FP) PO SCH (22:40)
[2021-07-27] MEDS ORDERED: chlordiazePOXIDE HCL 10 MG CAPSULE PO ONE (05:00)
[2021-07-27] MEDS: ASPIRIN COATED 81 MG TABLET.EC PO SCH (09:18)
[2021-07-27] MEDS: BICTEGRAV/EMTRICIT/TENOFOV (BIKTARVY) 50-200-25 MG TABLET PO SCH (09:18)
[2021-07-27] MEDS: HYDROCHLOROTHIAZIDE 25 MG TABLET (FP) PO SCH (09:18)
[2021-07-27] MEDS: PRENATAL VITAMINS W/ FOLIC ACID TABLET (FP) PO SCH (09:18)
[2021-07-27] MEDS: amLODIPine BESYLATE 10 MG TABLET (FP) PO SCH (09:18)
[2021-07-27] MEDS: SERTRALINE HCL 50 MG TABLET (FP) PO SCH (09:18)
[2021-07-27] MEDS: PANTOPRAZOLE 20 MG TABLET PO SCH (09:18)
[2021-07-27 09:44] VITALS: BP 134/88; PULSE 74; TEMP 96.9
== END 2021-07-27 09:40 | disposition home or self-care (01) | DRG 774 ==
LOC: YASAS 09:34 → Y6N 13:43 → UNDOADMIN 13:43 → Y6N 07-24 17:59
PROVIDERS: ADMIT Allergy & Immunology; ATTEND Allergy & Immunology
PROC: HZ2ZZZZ Detoxification Services for Substance Abuse Treatment (ICD-10-PCS; principal; 2021-07-24)
DX: F10.230 Alcohol dependence with withdrawal, uncomplicated (principal); F14.20 Cocaine dependence, uncomplicated; F17.210 Nicotine dependence, cigarettes, uncomplicated; F19.280 Other psychoactive substance dependence with psychoactive substance-induced anxiety disorder; F19.282 Other psychoactive substance dependence with psychoactive substance-induced sleep disorder; F32.A Depression, unspecified; Z21 Asymptomatic human immunodeficiency virus [HIV] infection status; I10 Essential (primary) hypertension; J43.8 Other emphysema; J45.20 Mild intermittent asthma, uncomplicated; K21.9 Gastro-esophageal reflux disease without esophagitis; M16.12 Unilateral primary osteoarthritis, left hip; R01.1 Cardiac murmur, unspecified; R94.31 Abnormal electrocardiogram [ECG] [EKG]; R63.4 Abnormal weight loss; Z68.26 Body mass index [BMI] 26.0-26.9, adult; Z88.1 Allergy status to other antibiotic agents; Z88.8 Allergy status to other drugs, medicaments and biological substances; Z91.013 Allergy to seafood; Z91.018 Allergy to other foods; Z56.0 Unemployment, unspecified; Z59.01 Sheltered homelessness
CPT/HCPCS: 36415; 80053; 81025; 85027; 86593; 86780; 87811; 93005; 93010; 94640; C9803-CS; U0003; U0005

== ENCOUNTER 2021-07-24 15:26 | Emergency (ER) | payer OTHER ==
[2021-07-24 15:54] VITALS: BP 136/98; PULSE 85; TEMP 97.9; BMI 53.4
== END 2021-07-24 16:36 | disposition home or self-care (01) ==
LOC: JER 15:26
DX: R94.31 Abnormal electrocardiogram [ECG] [EKG] (principal)
CPT/HCPCS: 93005; 93010; 99283-25

== ENCOUNTER 2021-12-31 19:46 | Inpatient (IN) | payer OTHER ==
[2021-12-31 20:22] VITALS: BMI 25.7
[2021-12-31] MEDS ORDERED: ONDANSETRON *ODT* 4 MG TABLET SL PRN (21:39)
[2021-12-31] MEDS ORDERED: MAG HYDROX/AL HYDROX/SIMETH 30 ML UNIT-DOSE CUP PO PRN (21:39)
[2021-12-31] MEDS ORDERED: MAGNESIUM CITRATE 300 ML BOTTLE PO PRN (21:39)
[2021-12-31] MEDS ORDERED: DICYCLOMINE HCL 10 MG CAPSULE PO PRN (21:39)
[2021-12-31] MEDS ORDERED: METHOCARBAMOL 500 MG TABLET PO PRN (21:39)
[2021-12-31] MEDS ORDERED: LOPERAMIDE HCL 2 MG CAPSULE PO PRN (21:39)
[2021-12-31] MEDS ORDERED: NICOTINE POLACRILEX 2 MG GUM BUC PRN (21:39)
[2021-12-31] MEDS ORDERED: IBUPROFEN 600 MG TABLET (FP) PO PRN (21:39)
[2021-12-31] MEDS ORDERED: MAGNESIUM HYDROX 2400MG/30ML ORAL SUSPENSION 30 ML CUP PO PRN (21:39)
[2021-12-31] MEDS ORDERED: BISMUTH SUBSALICYLATE 524 MG/30 ML PO PRN (21:39)
[2021-12-31] MEDS ORDERED: BENZOCAINE/MENTHOL (CHLORASEPTIC ) LOZENGE MM PRN (21:39)
[2021-12-31] MEDS ORDERED: IBUPROFEN 400 MG TABLET (FP) PO PRN (21:39)
[2021-12-31] MEDS ORDERED: ACETAMINOPHEN 325 MG TABLET (FP) PO PRN ×2 (21:39)
[2021-12-31] MEDS ORDERED: NALOXONE HCL (KLOXXADO) 8 MG SPRAY NS PRN (21:39)
[2021-12-31] MEDS ORDERED: chlordiazePOXIDE HCL 25 MG CAPSULE PO PRN (21:39)
[2021-12-31] MEDS ORDERED: MELATONIN 5 MG TABLETS PO SCH (22:00)
[2021-12-31] MEDS: ALBUTEROL SO4 HFA INHALER IH PRN (22:48)
[2021-12-31] MEDS ORDERED: METOPROLOL TARTRATE 50 MG TABLET (FP) PO ONE (22:48)
[2021-12-31] MEDS: chlordiazePOXIDE HCL 25 MG CAPSULE PO SCH (22:49)
[2021-12-31] MEDS: THIAMINE HCL 100 MG TABLET (FP) PO SCH (22:50)
[2022-01-01] MEDS: ALBUTEROL SO4 HFA INHALER IH PRN ×3 (05:35→19:55)
[2022-01-01] MEDS: chlordiazePOXIDE HCL 25 MG CAPSULE PO SCH ×4 (05:35→22:00)
[2022-01-01] MEDS: PRENATAL VITAMINS W/ FOLIC ACID TABLET (FP) PO SCH (10:32)
[2022-01-01] MEDS: NICOTINE 21 MG/24 HOURS TOPICAL PATCH TD SCH (10:32)
[2022-01-01] MEDS: HYDROCHLOROTHIAZIDE 25 MG TABLET (FP) PO SCH (10:33)
[2022-01-01] MEDS: SERTRALINE HCL 50 MG TABLET (FP) PO SCH (10:33)
[2022-01-01] MEDS: amLODIPine BESYLATE 10 MG TABLET (FP) PO SCH (10:33)
[2022-01-01] MEDS: METOPROLOL TARTRATE 50 MG TABLET (FP) PO SCH ×2 (10:33→22:02)
[2022-01-01] MEDS: BICTEGRAV/EMTRICIT/TENOFOV (BIKTARVY) 50-200-25 MG TABLET PO SCH (15:31)
[2022-01-01] MEDS: THIAMINE HCL 100 MG TABLET (FP) PO SCH (21:57)
[2022-01-01] MEDS ORDERED: QUEtiapine FUMARATE 300 MG TABLET PO SCH (22:00)
[2022-01-02] MEDS: chlordiazePOXIDE HCL 25 MG CAPSULE PO SCH ×2 (05:20→13:45)
[2022-01-02 06:10] VITALS: BP 170/113; PULSE 95; RESP 24; TEMP 98
[2022-01-02] MEDS: BICTEGRAV/EMTRICIT/TENOFOV (BIKTARVY) 50-200-25 MG TABLET PO SCH (13:43)
[2022-01-02] MEDS: NICOTINE 21 MG/24 HOURS TOPICAL PATCH TD SCH (13:44)
[2022-01-02] MEDS: SERTRALINE HCL 50 MG TABLET (FP) PO SCH (13:44)
[2022-01-02] MEDS: amLODIPine BESYLATE 10 MG TABLET (FP) PO SCH (13:44)
[2022-01-02] MEDS: HYDROCHLOROTHIAZIDE 25 MG TABLET (FP) PO SCH (13:44)
[2022-01-02] MEDS: METOPROLOL TARTRATE 50 MG TABLET (FP) PO SCH (13:44)
[2022-01-02] MEDS: PRENATAL VITAMINS W/ FOLIC ACID TABLET (FP) PO SCH (13:44)
[2022-01-03] MEDS ORDERED: chlordiazePOXIDE HCL 10 MG CAPSULE PO PRN
[2022-01-03] MEDS ORDERED: chlordiazePOXIDE HCL 10 MG CAPSULE PO SCH (05:00)
[2022-01-04] MEDS ORDERED: chlordiazePOXIDE HCL 10 MG CAPSULE PO SCH (05:00)
[2022-01-05] MEDS ORDERED: chlordiazePOXIDE HCL 10 MG CAPSULE PO ONE (05:00)
== END 2022-01-02 15:50 | disposition short-term general hospital (02) | DRG 774 ==
LOC: YASAS 19:46 → Y6N 22:19
PROVIDERS: ADMIT Allergy & Immunology; ATTEND Surgery
PROC: HZ2ZZZZ Detoxification Services for Substance Abuse Treatment (ICD-10-PCS; principal; 2021-12-31)
DX: F10.230 Alcohol dependence with withdrawal, uncomplicated (principal); F14.20 Cocaine dependence, uncomplicated; F17.210 Nicotine dependence, cigarettes, uncomplicated; F19.280 Other psychoactive substance dependence with psychoactive substance-induced anxiety disorder; F19.282 Other psychoactive substance dependence with psychoactive substance-induced sleep disorder; F32.9 Major depressive disorder, single episode, unspecified; Z21 Asymptomatic human immunodeficiency virus [HIV] infection status; G62.9 Polyneuropathy, unspecified; I10 Essential (primary) hypertension; J44.9 Chronic obstructive pulmonary disease, unspecified; J45.20 Mild intermittent asthma, uncomplicated; K21.9 Gastro-esophageal reflux disease without esophagitis; M16.12 Unilateral primary osteoarthritis, left hip; Z86.19 Personal history of other infectious and parasitic diseases; Z59.01 Sheltered homelessness; Z88.1 Allergy status to other antibiotic agents; Z88.2 Allergy status to sulfonamides; Z88.8 Allergy status to other drugs, medicaments and biological substances; Z91.048 Other nonmedicinal substance allergy status
CPT/HCPCS: 36415; 86780; C9803-CS; U0003; U0005

== ENCOUNTER 2022-01-02 06:35 | Inpatient (IN) | payer OTHER ==
[2022-01-02 06:45] VITALS: BMI 25.8
[2022-01-02] MEDS ORDERED: ALBUTEROL SO4 2.5/IPRATROPIUM 0.5 INH SOL 3 ML VIAL.NEB. NEB ONE ×3 (07:15→07:27)
[2022-01-02] MEDS ORDERED: SODIUM CHLORIDE 500 ML IV STA (07:21)
[2022-01-02] MEDS ORDERED: ACETAMINOPHEN INJECTION 100 ML IVPB ONE (07:27)
[2022-01-02] MEDS ORDERED: ACETAMINOPHEN 1000 MG/100 ML BAG IVPB ONE (07:27)
[2022-01-02] MEDS ORDERED: DEXAMETHASONE SOD PHOSPHATE 10 MG/1 ML VIAL IVPUSH ONE (07:35)
[2022-01-02] MEDS ORDERED: DEXAMETHASONE SOD PHOSPHATE 10 MG/1 ML VIAL ONE (08:06)
[2022-01-02 08:12] LABS: BASO % 0.6 % (0-2.0); EOS % 0.4 % (0-4.5); HEMATOCRIT 41.5 % (32.4-45.2); HEMOGLOBIN 13.9 GM/dL (10.7-15.3); LYMPH % 15.4 % (8-40); MCH 27.7 pg (25.7-33.7); MCHC 33.5 g/dl (32.0-36.0); MEAN CELL VOLUME 82.8 fl (80-96); MEAN PLT VOLUME 7.7 fl (7.5-11.1); MONO % 5.2 % (3.8-10.2); NEUT % 78.4 % (42.8-82.8); PLATELET COUNT 284 10^3/uL (134-434); RBC 5.01 M/mm3 (3.60-5.2); RDW 14.5 % (11.6-15.6); WHITE BLOOD COUNT 7.7 K/mm3 (4.0-10.0)
[2022-01-02 08:31] LABS: BLOOD UREA NITROGEN 8.6 mg/dL (7-18)
[2022-01-02 08:34] LABS: CREATININE 1.1 mg/dL (0.55-1.3)
[2022-01-02 08:35] LABS: BILIRUBIN,TOTAL 0.4 mg/dL (0.2-1)
[2022-01-02 08:36] LABS: TOT PROT 8.2 g/dl (6.4-8.2)
[2022-01-02] MEDS ORDERED: CEFTRIAXONE 1,000 MG in DEXTROSE 5%-WATER - 50 ML IVPB ONE (09:38)
[2022-01-02] MEDS ORDERED: DOXYCYCLINE INJECTION 100 MG in DEXTROSE 5%-WATER 100 ML IVPB ONE (09:41)
[2022-01-02] MEDS ORDERED: CEFTRIAXONE 1 GM/50 ML BAG ONE (09:56)
[2022-01-02] MEDS ORDERED: LORazepam 1 MG TABLET PO PRN (11:45)
[2022-01-02] MEDS ORDERED: ENOXAPARIN NA (PORCINE) 40 MG/0.4 ML DISP.SYRIN SQ ONE (12:21)
[2022-01-02] MEDS ORDERED: LORazepam 1 MG TABLET ONE (12:24)
[2022-01-02] MEDS: ENOXAPARIN NA (PORCINE) 40 MG/0.4 ML DISP.SYRIN SQ SCH (12:30)
[2022-01-02] MEDS: LORazepam 1 MG TABLET PO SCH ×2 (12:30→17:55)
[2022-01-02] MEDS: LACTATED RINGERS SOLUTION 1,000 ML/1,000 ML INFUS.BAG IV SCH (12:59)
[2022-01-02 13:39] LABS: EPI CELLS >36 /uL (0-25.1); HYALINE CASTS 4 /uL (0-3.1); PH,URINE 5.5 (5.0-8.0); URINE APPEARANCE CLOUDY; URINE BACTERIA 2538 /uL (0-1359); URINE BILIRUBIN NEGATIVE (NEGATIVE); URINE COLOR YELLOW; URINE GLUCOSE (UA) NEGATIVE (NEGATIVE); URINE KETONE NEGATIVE (NEGATIVE); URINE LEUK ESTERASE TRACE (NEGATIVE); URINE NITRITE NEGATIVE (NEGATIVE); URINE PROTEIN 1+ (NEGATIVE); URINE RBC 5 /uL (0-23.9); URINE UROBILINOGEN 0.2 mg/dL (0.2-1.0); URINE WBC 64 /uL (0-25.8)
[2022-01-02] MEDS ORDERED: PIPERACILLIN/TAZOB 3.375 GM 3.375 GM/50 ML BAG IVPB ONE (18:26)
[2022-01-02] MEDS: PIPERACILLIN/TAZOB 3.375 GM 3.375 GM in DEXTROSE 5%-WATER - 50 ML IVPB SCH (18:34)
[2022-01-03] MEDS ORDERED: LORazepam 1 MG TABLET ONE ×3 (00:23→10:09)
[2022-01-03] MEDS ORDERED: DOXYCYCLINE HYCLATE 100 MG VIAL ONE ×2 (00:24→10:10)
[2022-01-03] MEDS: LORazepam 1 MG TABLET PO SCH ×5 (00:25→22:01)
[2022-01-03] MEDS: DOXYCYCLINE INJECTION 100 MG in DEXTROSE 5%-WATER 100 ML IVPB SCH ×3 (00:34→21:53)
[2022-01-03] MEDS ORDERED: PIPERACILLIN/TAZOB 3.375 GM 3.375 GM/50 ML BAG IVPB ONE ×2 (05:12→10:11)
[2022-01-03] MEDS: PIPERACILLIN/TAZOB 3.375 GM 3.375 GM in DEXTROSE 5%-WATER - 50 ML IVPB SCH ×4 (05:13→19:00)
[2022-01-03] MEDS ORDERED: ENOXAPARIN NA (PORCINE) 40 MG/0.4 ML DISP.SYRIN SQ ONE (10:10)
[2022-01-03] MEDS ORDERED: NICOTINE 14 MG/24 HOURS TOPICAL PATCH TD ONE (10:10)
[2022-01-03] MEDS: NICOTINE 14 MG/24 HOURS TOPICAL PATCH TD SCH (10:26)
[2022-01-03] MEDS: ENOXAPARIN NA (PORCINE) 40 MG/0.4 ML DISP.SYRIN SQ SCH (10:26)
[2022-01-03] MEDS: LACTATED RINGERS SOLUTION 1,000 ML/1,000 ML INFUS.BAG IV SCH (10:27)
[2022-01-03] MEDS ORDERED: ALBUTEROL SO4 2.5/IPRATROPIUM 0.5 INH SOL 3 ML VIAL.NEB. NEB PRN (10:48)
[2022-01-03] MEDS: PANTOPRAZOLE 20 MG TABLET PO SCH (17:46)
[2022-01-03] MEDS: SERTRALINE HCL 50 MG TABLET (FP) PO SCH (17:46)
[2022-01-03] MEDS: ALBUTEROL SO4 0.083% IH SOL 2.5 MG/3 ML VIAL.NEB. NEB SCH ×2 (17:47→20:39)
[2022-01-03] MEDS: BICTEGRAV/EMTRICIT/TENOFOV (BIKTARVY) 50-200-25 MG TABLET PO SCH (17:48)
[2022-01-03] MEDS ORDERED: HYDROCHLOROTHIAZIDE 25 MG TABLET (FP) PO ONE (21:45)
[2022-01-03] MEDS: ATORVASTATIN CA 20 MG TABLET (FP) PO SCH (21:55)
[2022-01-03] MEDS: BUDESONIDE/FORMETEROL FUMARATE 160/4.5 mcg INHALER IH SCH (22:29)
[2022-01-03] MEDS ORDERED: amLODIPine BESYLATE 10 MG TABLET (FP) PO ONE (22:32)
[2022-01-04] MEDS: PIPERACILLIN/TAZOB 3.375 GM 3.375 GM in DEXTROSE 5%-WATER - 50 ML IVPB SCH ×2 (01:04→10:41)
[2022-01-04] MEDS: LACTATED RINGERS SOLUTION 1,000 ML/1,000 ML INFUS.BAG IV SCH ×2 (02:28→18:12)
[2022-01-04] MEDS: LORazepam 1 MG TABLET PO SCH ×4 (06:15→22:03)
[2022-01-04] MEDS ORDERED: amLODIPine BESYLATE 10 MG TABLET (FP) PO ONE (08:54)
[2022-01-04] MEDS: ALBUTEROL SO4 0.083% IH SOL 2.5 MG/3 ML VIAL.NEB. NEB SCH ×4 (09:39→20:05)
[2022-01-04] MEDS ORDERED: FOLIC ACID 1 MG TABLET (FP) PO SCH (10:00)
[2022-01-04] MEDS ORDERED: amLODIPine BESYLATE 10 MG TABLET (FP) PO SCH (10:00)
[2022-01-04] MEDS ORDERED: HYDROCHLOROTHIAZIDE 25 MG TABLET (FP) PO SCH (10:00)
[2022-01-04] MEDS ORDERED: THIAMINE HCL 100 MG TABLET (FP) PO SCH (10:00)
[2022-01-04] MEDS: BICTEGRAV/EMTRICIT/TENOFOV (BIKTARVY) 50-200-25 MG TABLET PO SCH (10:40)
[2022-01-04] MEDS: PANTOPRAZOLE 20 MG TABLET PO SCH (10:42)
[2022-01-04] MEDS: BUDESONIDE/FORMETEROL FUMARATE 160/4.5 mcg INHALER IH SCH ×3 (10:43→22:02)
[2022-01-04] MEDS: SERTRALINE HCL 50 MG TABLET (FP) PO SCH (10:43)
[2022-01-04] MEDS: NICOTINE 14 MG/24 HOURS TOPICAL PATCH TD SCH (11:03)
[2022-01-04] MEDS: ENOXAPARIN NA (PORCINE) 40 MG/0.4 ML DISP.SYRIN SQ SCH (11:03)
[2022-01-04 11:55] LABS: EOS % 2.6 % (0-4.5); HEMATOCRIT 38.1 % (32.4-45.2); HEMOGLOBIN 12.7 GM/dL (10.7-15.3); LYMPH % 25.3 % (8-40); MCH 27.9 pg (25.7-33.7); MCHC 33.3 g/dl (32.0-36.0); MEAN CELL VOLUME 83.7 fl (80-96); MEAN PLT VOLUME 7.8 fl (7.5-11.1); MONO % 6.3 % (3.8-10.2); NEUT % 64.8 % (42.8-82.8); PLATELET COUNT 344 10^3/uL (134-434); RBC 4.55 M/mm3 (3.60-5.2); RDW 14.2 % (11.6-15.6); WHITE BLOOD COUNT 4.4 K/mm3 (4.0-10.0)
[2022-01-04 12:58] LABS: ALBUMIN 2.9 g/dl (3.4-5.0); BLOOD UREA NITROGEN 13.3 mg/dL (7-18); MAGNESIUM 1.9 mg/dL (1.8-2.4)
[2022-01-04 13:01] LABS: PHOSPHOROUS 2.2 mg/dL (2.5-4.9)
[2022-01-04 13:03] LABS: BILIRUBIN,TOTAL 0.3 mg/dL (0.2-1); TOT PROT 7.8 g/dl (6.4-8.2)
[2022-01-04] MEDS: DOXYCYCLINE INJECTION 100 MG in DEXTROSE 5%-WATER 100 ML IVPB SCH ×2 (13:25→21:50)
[2022-01-04] MEDS ORDERED: HYDROCHLOROTHIAZIDE 25 MG TABLET (FP) PO ONE (21:11)
[2022-01-04] MEDS: AMPICILLIN NA/SULBACTAM NA 1.5 GM in SODIUM CHLORIDE 100 ML IVPB SCH (21:50)
[2022-01-04] MEDS: ATORVASTATIN CA 20 MG TABLET (FP) PO SCH (22:02)
[2022-01-05] MEDS ORDERED: LORazepam 0.5 MG TABLET PO PRN
[2022-01-05] MEDS: AMPICILLIN NA/SULBACTAM NA 1.5 GM in SODIUM CHLORIDE 100 ML IVPB SCH ×2 (03:33→04:30)
[2022-01-05] MEDS ORDERED: LORazepam 0.5 MG TABLET PO SCH (05:00)
[2022-01-05] MEDS: ALBUTEROL SO4 0.083% IH SOL 2.5 MG/3 ML VIAL.NEB. NEB SCH (08:09)
[2022-01-05 08:44] VITALS: BP 147/86; PULSE 72; RESP 18; TEMP 97.9
[2022-01-05 09:36] LABS: BASO % 1.1 % (0-2.0); EOS % 2.4 % (0-4.5); HEMATOCRIT 39.3 % (32.4-45.2); HEMOGLOBIN 12.8 GM/dL (10.7-15.3); LYMPH % 27.6 % (8-40); MCH 27.4 pg (25.7-33.7); MCHC 32.5 g/dl (32.0-36.0); MEAN CELL VOLUME 84.1 fl (80-96); MEAN PLT VOLUME 7.5 fl (7.5-11.1); MONO % 8.8 % (3.8-10.2); NEUT % 60.1 % (42.8-82.8); PLATELET COUNT 355 10^3/uL (134-434); RBC 4.67 M/mm3 (3.60-5.2); WHITE BLOOD COUNT 3.6 K/mm3 (4.0-10.0)
[2022-01-05 09:58] LABS: CALCIUM 8.9 mg/dL (8.5-10.1)
[2022-01-05 09:59] LABS: ALBUMIN 2.9 g/dl (3.4-5.0); BLOOD UREA NITROGEN 14.1 mg/dL (7-18); MAGNESIUM 2.1 mg/dL (1.8-2.4)
[2022-01-05] MEDS ORDERED: amLODIPine BESYLATE 10 MG TABLET (FP) PO SCH (10:00)
[2022-01-05 10:02] LABS: CREATININE 0.9 mg/dL (0.55-1.3); PHOSPHOROUS 3.5 mg/dL (2.5-4.9)
[2022-01-05 10:04] LABS: BILIRUBIN,TOTAL 1.2 mg/dL (0.2-1); TOT PROT 7.8 g/dl (6.4-8.2)
[2022-01-06] MEDS ORDERED: LORazepam 0.5 MG TABLET PO ONE (05:00)
== END 2022-01-05 10:00 | disposition left against medical advice (07) | DRG 894 ==
LOC: JER 06:35 → JERBED 11:08 → J8W 01-03 16:36
PROVIDERS: ADMIT Internal Medicine; ATTEND Internal Medicine
DX: J18.9 Pneumonia, unspecified organism (principal); I10 Essential (primary) hypertension; J44.9 Chronic obstructive pulmonary disease, unspecified; B20 Human immunodeficiency virus [HIV] disease; E78.5 Hyperlipidemia, unspecified; F14.10 Cocaine abuse, uncomplicated; F17.210 Nicotine dependence, cigarettes, uncomplicated; F12.20 Cannabis dependence, uncomplicated; F32.A Depression, unspecified; B35.3 Tinea pedis; F10.230 Alcohol dependence with withdrawal, uncomplicated; R59.0 Localized enlarged lymph nodes; Z53.29 Procedure and treatment not carried out because of patient's decision for other reasons
CPT/HCPCS: 0241U-QW; 36415; 71045-TC-FY; 71250-TC; 80053; 81003; 83605; 83615; 83690; 83735; 84100; 84484; 85025; 86359; 86360; 86480; 86593; 86780; 87040; 87070; 87086; 87116; 87205; 87206; 87899; 93005; 93010; 94640; 99285-25; J1100

== ENCOUNTER 2022-02-22 12:34 | Inpatient (IN) | payer OTHER ==
[2022-02-22 13:45] VITALS: BMI 25.7
[2022-02-22] MEDS ORDERED: DICYCLOMINE HCL 10 MG CAPSULE PO PRN (15:58)
[2022-02-22] MEDS ORDERED: ONDANSETRON *ODT* 4 MG TABLET SL PRN (15:58)
[2022-02-22] MEDS ORDERED: MAG HYDROX/AL HYDROX/SIMETH 30 ML UNIT-DOSE CUP PO PRN (15:58)
[2022-02-22] MEDS ORDERED: NICOTINE POLACRILEX 4 MG GUM BUC PRN (15:58)
[2022-02-22] MEDS ORDERED: IBUPROFEN 600 MG TABLET (FP) PO PRN (15:58)
[2022-02-22] MEDS ORDERED: NALOXONE HCL (KLOXXADO) 8 MG SPRAY NS PRN (15:58)
[2022-02-22] MEDS ORDERED: MAGNESIUM HYDROX 2400MG/30ML ORAL SUSPENSION 30 ML CUP PO PRN (15:58)
[2022-02-22] MEDS ORDERED: BENZOCAINE/MENTHOL (CHLORASEPTIC ) LOZENGE MM PRN (15:58)
[2022-02-22] MEDS ORDERED: LOPERAMIDE HCL 2 MG CAPSULE PO PRN (15:58)
[2022-02-22] MEDS ORDERED: IBUPROFEN 400 MG TABLET (FP) PO PRN (15:58)
[2022-02-22] MEDS ORDERED: NICOTINE 10 MG CARTRIDGE (INHALER) IH PRN (15:58)
[2022-02-22] MEDS ORDERED: ACETAMINOPHEN 325 MG TABLET (FP) PO PRN ×2 (15:58)
[2022-02-22] MEDS ORDERED: BISMUTH SUBSALICYLATE 524 MG/30 ML PO PRN (15:58)
[2022-02-22] MEDS: ALBUTEROL SO4 0.083% IH SOL 2.5 MG/3 ML VIAL.NEB. NEB SCH ×2 (17:30→20:30)
[2022-02-22] MEDS: hydrOXYzine PAMOATE 25 MG CAPSULE (FP) PO PRN (18:31)
[2022-02-22] MEDS: METHOCARBAMOL 500 MG TABLET PO PRN (18:31)
[2022-02-22] MEDS: THIAMINE HCL 100 MG TABLET (FP) PO SCH (22:26)
[2022-02-22] MEDS: MELATONIN 5 MG TABLETS PO SCH (22:26)
[2022-02-22] MEDS: QUEtiapine FUMARATE 300 MG TABLET PO SCH (22:26)
[2022-02-22] MEDS: OSELTAMIVIR PHOSPHATE 75 MG CAPSULE PO SCH (22:26)
[2022-02-22] MEDS: BUDESONIDE/FORMETEROL FUMARATE 160/4.5 mcg INHALER IH SCH (22:26)
[2022-02-22] MEDS: ATORVASTATIN CA 20 MG TABLET (FP) PO SCH (22:26)
[2022-02-22] MEDS: predniSONE 20 MG TABLET (UD) PO SCH (22:26)
[2022-02-22] MEDS ORDERED: ALBUTEROL SO4 HFA INHALER IH PRN (22:34)
[2022-02-22] MEDS: MINERAL OIL/PET HY-PHL TOPICAL OINTMENT 454 GM JAR TP SCH (22:35)
[2022-02-23] MEDS: ALBUTEROL SO4 0.083% IH SOL 2.5 MG/3 ML VIAL.NEB. NEB SCH ×4 (09:00→19:54)
[2022-02-23] MEDS: BICTEGRAV/EMTRICIT/TENOFOV (BIKTARVY) 50-200-25 MG TABLET PO SCH (09:00)
[2022-02-23] MEDS ORDERED: PATIENT'S OWN MEDICATION (NON-FORMULARY) (Sertraline Hcl [Zoloft] 100 MG Tablet) PO SCH (10:00)
[2022-02-23] MEDS: predniSONE 20 MG TABLET (UD) PO SCH ×2 (10:20→22:20)
[2022-02-23] MEDS: NIFEdipine E.R. 30 MG TABLET PO SCH (10:20)
[2022-02-23] MEDS: OSELTAMIVIR PHOSPHATE 75 MG CAPSULE PO SCH (10:20)
[2022-02-23] MEDS: PANTOPRAZOLE 40 MG TABLET PO SCH (10:20)
[2022-02-23] MEDS: PRENATAL VITAMINS W/ FOLIC ACID TABLET (FP) PO SCH (10:20)
[2022-02-23] MEDS: BUDESONIDE/FORMETEROL FUMARATE 160/4.5 mcg INHALER IH SCH ×2 (10:22→22:22)
[2022-02-23] MEDS: MINERAL OIL/PET HY-PHL TOPICAL OINTMENT 454 GM JAR TP SCH ×2 (10:22→22:22)
[2022-02-23 12:59] LABS: HEMATOCRIT 40.6 % (32.4-45.2); HEMOGLOBIN 13.2 GM/dL (10.7-15.3); MCH 27.2 pg (25.7-33.7); MCHC 32.5 g/dl (32.0-36.0); MEAN CELL VOLUME 83.7 fl (80-96); MEAN PLT VOLUME 8.2 fl (7.5-11.1); PLATELET COUNT 280 10^3/uL (134-434); RBC 4.85 M/mm3 (3.60-5.2); RDW 15.2 % (11.6-15.6); WHITE BLOOD COUNT 4.8 K/mm3 (4.0-10.0)
[2022-02-23] MEDS: hydrOXYzine PAMOATE 25 MG CAPSULE (FP) PO PRN ×2 (12:59→19:57)
[2022-02-23] MEDS: METHOCARBAMOL 500 MG TABLET PO PRN ×2 (12:59→19:57)
[2022-02-23 13:06] LABS: ALBUMIN 3.3 g/dl (3.4-5.0); BLOOD UREA NITROGEN 22.3 mg/dL (7-18)
[2022-02-23 13:11] LABS: BILIRUBIN,TOTAL 0.2 mg/dL (0.2-1); TOT PROT 7.8 g/dl (6.4-8.2)
[2022-02-23] MEDS: MELATONIN 5 MG TABLETS PO SCH (22:20)
[2022-02-23] MEDS: ATORVASTATIN CA 20 MG TABLET (FP) PO SCH (22:20)
[2022-02-23] MEDS: THIAMINE HCL 100 MG TABLET (FP) PO SCH (22:20)
[2022-02-23] MEDS: QUEtiapine FUMARATE 300 MG TABLET PO SCH (22:20)
[2022-02-23 23:04] VITALS: RESP 18
[2022-02-24] MEDS: BICTEGRAV/EMTRICIT/TENOFOV (BIKTARVY) 50-200-25 MG TABLET PO SCH (08:53)
[2022-02-24 09:04] VITALS: BP 162/100; PULSE 95; TEMP 96.9
[2022-02-24] MEDS ORDERED: SERTRALINE HCL 50 MG TABLET (FP) PO SCH (10:00)
[2022-02-24] MEDS: predniSONE 20 MG TABLET (UD) PO SCH (10:10)
[2022-02-24] MEDS: PRENATAL VITAMINS W/ FOLIC ACID TABLET (FP) PO SCH (10:10)
[2022-02-24] MEDS: PANTOPRAZOLE 40 MG TABLET PO SCH (10:11)
[2022-02-24] MEDS: NIFEdipine E.R. 30 MG TABLET PO SCH (10:11)
[2022-02-24] MEDS: BUDESONIDE/FORMETEROL FUMARATE 160/4.5 mcg INHALER IH SCH (10:11)
[2022-02-24] MEDS: MINERAL OIL/PET HY-PHL TOPICAL OINTMENT 454 GM JAR TP SCH (10:11)
== END 2022-02-24 10:22 | disposition home or self-care (01) | DRG 774 ==
LOC: YASAS 12:34 → Y3N 16:15 → UNDOADMIN 16:15 → UNDODISIN 02-24 10:22
PROVIDERS: ADMIT Allergy & Immunology; ATTEND Surgery
PROC: HZ2ZZZZ Detoxification Services for Substance Abuse Treatment (ICD-10-PCS; principal; 2022-02-22)
DX: F10.230 Alcohol dependence with withdrawal, uncomplicated (principal); F14.20 Cocaine dependence, uncomplicated; F12.20 Cannabis dependence, uncomplicated; F17.210 Nicotine dependence, cigarettes, uncomplicated; F19.24 Other psychoactive substance dependence with psychoactive substance-induced mood disorder; Z21 Asymptomatic human immunodeficiency virus [HIV] infection status; G62.9 Polyneuropathy, unspecified; E78.5 Hyperlipidemia, unspecified; I10 Essential (primary) hypertension; J43.8 Other emphysema; J45.20 Mild intermittent asthma, uncomplicated; K21.9 Gastro-esophageal reflux disease without esophagitis; M16.12 Unilateral primary osteoarthritis, left hip; Z86.19 Personal history of other infectious and parasitic diseases; Z88.1 Allergy status to other antibiotic agents; Z91.013 Allergy to seafood
CPT/HCPCS: 36415; 80053; 85027; 86593; 86780; 94640; C9803-CS; U0003; U0005

== ENCOUNTER 2022-04-14 09:25 | Inpatient (IN) | payer OTHER ==
[2022-04-14 09:54] VITALS: BMI 26.9
[2022-04-14] MEDS ORDERED: ONDANSETRON *ODT* 4 MG TABLET SL PRN (10:28)
[2022-04-14] MEDS ORDERED: NICOTINE 10 MG CARTRIDGE (INHALER) IH PRN (10:28)
[2022-04-14] MEDS ORDERED: ACETAMINOPHEN 325 MG TABLET (FP) PO PRN ×2 (10:28)
[2022-04-14] MEDS ORDERED: IBUPROFEN 600 MG TABLET (FP) PO PRN (10:28)
[2022-04-14] MEDS ORDERED: IBUPROFEN 400 MG TABLET (FP) PO PRN (10:28)
[2022-04-14] MEDS ORDERED: hydrOXYzine PAMOATE 25 MG CAPSULE (FP) PO PRN (10:28)
[2022-04-14] MEDS ORDERED: MAGNESIUM HYDROX 2400MG/30ML ORAL SUSPENSION 30 ML CUP PO PRN (10:28)
[2022-04-14] MEDS ORDERED: NALOXONE HCL (KLOXXADO) 8 MG SPRAY NS PRN (10:28)
[2022-04-14] MEDS ORDERED: LOPERAMIDE HCL 2 MG CAPSULE PO PRN (10:28)
[2022-04-14] MEDS ORDERED: METHOCARBAMOL 500 MG TABLET PO PRN (10:28)
[2022-04-14] MEDS ORDERED: DICYCLOMINE HCL 10 MG CAPSULE PO PRN (10:28)
[2022-04-14] MEDS ORDERED: BENZOCAINE/MENTHOL (CHLORASEPTIC ) LOZENGE MM PRN (10:28)
[2022-04-14] MEDS ORDERED: MAG HYDROX/AL HYDROX/SIMETH 30 ML UNIT-DOSE CUP PO PRN (10:28)
[2022-04-14] MEDS ORDERED: POLYETHYLENE GLYCOL (HEALTHYLAX) 3350 17 GM PACKET PO PRN (10:28)
[2022-04-14] MEDS ORDERED: BISMUTH SUBSALICYLATE 524 MG/30 ML PO PRN (10:28)
[2022-04-14] MEDS: NIFEdipine E.R. 30 MG TABLET PO SCH (11:56)
[2022-04-14] MEDS: amLODIPine BESYLATE 10 MG TABLET (FP) PO SCH (11:56)
[2022-04-14] MEDS: HYDROCHLOROTHIAZIDE 25 MG TABLET (FP) PO SCH (11:56)
[2022-04-14] MEDS ORDERED: chlordiazePOXIDE HCL 25 MG CAPSULE PO PRN (12:00)
[2022-04-14] MEDS ORDERED: SERTRALINE HCL 50 MG TABLET (FP) PO ONE (12:02)
[2022-04-14] MEDS: chlordiazePOXIDE HCL 25 MG CAPSULE PO SCH ×3 (12:15→22:24)
[2022-04-14] MEDS: ALBUTEROL SO4 HFA INHALER IH PRN ×2 (16:53→22:23)
[2022-04-14] MEDS: BUDESONIDE/FORMETEROL FUMARATE 160/4.5 mcg INHALER IH SCH (22:23)
[2022-04-14] MEDS: THIAMINE HCL 100 MG TABLET (FP) PO SCH (22:24)
[2022-04-14] MEDS: MELATONIN 5 MG TABLETS PO SCH (22:24)
[2022-04-14] MEDS: ATORVASTATIN CA 20 MG TABLET (FP) PO SCH (22:25)
[2022-04-14] MEDS: QUEtiapine FUMARATE 200 MG TABLET PO SCH (22:25)
[2022-04-15] MEDS: chlordiazePOXIDE HCL 25 MG CAPSULE PO SCH ×4 (05:36→22:03)
[2022-04-15] MEDS: ALBUTEROL SO4 HFA INHALER IH PRN ×2 (09:12→21:00)
[2022-04-15] MEDS: PRENATAL VITAMINS W/ FOLIC ACID TABLET (FP) PO SCH (10:02)
[2022-04-15] MEDS: amLODIPine BESYLATE 10 MG TABLET (FP) PO SCH (10:02)
[2022-04-15] MEDS: NIFEdipine E.R. 30 MG TABLET PO SCH (10:02)
[2022-04-15] MEDS: HYDROCHLOROTHIAZIDE 25 MG TABLET (FP) PO SCH (10:02)
[2022-04-15] MEDS: SERTRALINE HCL 50 MG TABLET (FP) PO SCH (10:07)
[2022-04-15] MEDS: BUDESONIDE/FORMETEROL FUMARATE 160/4.5 mcg INHALER IH SCH ×2 (10:07→22:00)
[2022-04-15] MEDS: PANTOPRAZOLE 40 MG TABLET PO SCH (10:07)
[2022-04-15] MEDS: BICTEGRAV/EMTRICIT/TENOFOV (BIKTARVY) 50-200-25 MG TABLET PO SCH (10:07)
[2022-04-15 20:04] LABS: HEMOGLOBIN 12.5 GM/dL (10.7-15.3); MCH 27.7 pg (25.7-33.7); MCHC 32.8 g/dl (32.0-36.0); MEAN CELL VOLUME 84.4 fl (80-96); MEAN PLT VOLUME 7.6 fl (7.5-11.1); PLATELET COUNT 363 10^3/uL (134-434); RBC 4.51 M/mm3 (3.60-5.2); RDW 15.7 % (11.6-15.6); WHITE BLOOD COUNT 4.3 K/mm3 (4.0-10.0)
[2022-04-15 20:15] LABS: ALBUMIN 2.8 g/dl (3.4-5.0); CALCIUM 8.9 mg/dL (8.5-10.1)
[2022-04-15 20:16] LABS: CREATININE 1.1 mg/dL (0.55-1.3)
[2022-04-15 20:17] LABS: BILIRUBIN,TOTAL 0.2 mg/dL (0.2-1); TOT PROT 7.2 g/dl (6.4-8.2)
[2022-04-15 20:30] LABS: BLOOD UREA NITROGEN 15.2 mg/dL (7-18)
[2022-04-15] MEDS: FLUOCINONIDE 0.05% CREAM (60 GM TUBE) TP SCH (22:01)
[2022-04-15] MEDS: THIAMINE HCL 100 MG TABLET (FP) PO SCH (22:02)
[2022-04-15] MEDS: ATORVASTATIN CA 20 MG TABLET (FP) PO SCH (22:02)
[2022-04-15] MEDS: QUEtiapine FUMARATE 200 MG TABLET PO SCH (22:02)
[2022-04-15] MEDS: MELATONIN 5 MG TABLETS PO SCH (22:53)
[2022-04-16] MEDS: chlordiazePOXIDE HCL 25 MG CAPSULE PO SCH ×4 (06:28→22:16)
[2022-04-16] MEDS: NICOTINE POLACRILEX 2 MG GUM BUC PRN ×2 (06:31→12:49)
[2022-04-16] MEDS: PRENATAL VITAMINS W/ FOLIC ACID TABLET (FP) PO SCH (10:09)
[2022-04-16] MEDS: HYDROCHLOROTHIAZIDE 25 MG TABLET (FP) PO SCH (10:09)
[2022-04-16] MEDS: BICTEGRAV/EMTRICIT/TENOFOV (BIKTARVY) 50-200-25 MG TABLET PO SCH (10:09)
[2022-04-16] MEDS: SERTRALINE HCL 50 MG TABLET (FP) PO SCH (10:09)
[2022-04-16] MEDS: amLODIPine BESYLATE 10 MG TABLET (FP) PO SCH (10:09)
[2022-04-16] MEDS: PANTOPRAZOLE 40 MG TABLET PO SCH (10:10)
[2022-04-16] MEDS: FLUOCINONIDE 0.05% CREAM (60 GM TUBE) TP SCH ×2 (10:10→22:16)
[2022-04-16] MEDS: BUDESONIDE/FORMETEROL FUMARATE 160/4.5 mcg INHALER IH SCH ×2 (10:11→22:15)
[2022-04-16 12:30] VITALS: RESP 18
[2022-04-16] MEDS: ALBUTEROL SO4 HFA INHALER IH PRN ×2 (16:21→22:15)
[2022-04-16] MEDS: ATORVASTATIN CA 20 MG TABLET (FP) PO SCH (22:15)
[2022-04-16] MEDS: MELATONIN 5 MG TABLETS PO SCH (22:16)
[2022-04-16] MEDS: QUEtiapine FUMARATE 200 MG TABLET PO SCH (22:16)
[2022-04-16] MEDS: THIAMINE HCL 100 MG TABLET (FP) PO SCH (22:16)
[2022-04-17] MEDS ORDERED: chlordiazePOXIDE HCL 10 MG CAPSULE PO PRN
[2022-04-17] MEDS: chlordiazePOXIDE HCL 10 MG CAPSULE PO SCH ×2 (05:22→10:08)
[2022-04-17 09:05] VITALS: BP 152/92; PULSE 86; TEMP 97.7
[2022-04-17] MEDS: HYDROCHLOROTHIAZIDE 25 MG TABLET (FP) PO SCH (10:08)
[2022-04-17] MEDS: SERTRALINE HCL 50 MG TABLET (FP) PO SCH (10:08)
[2022-04-17] MEDS: PANTOPRAZOLE 40 MG TABLET PO SCH (10:08)
[2022-04-17] MEDS: amLODIPine BESYLATE 10 MG TABLET (FP) PO SCH (10:09)
[2022-04-17] MEDS: PRENATAL VITAMINS W/ FOLIC ACID TABLET (FP) PO SCH (10:09)
[2022-04-17] MEDS: FLUOCINONIDE 0.05% CREAM (60 GM TUBE) TP SCH (10:09)
[2022-04-17] MEDS: BUDESONIDE/FORMETEROL FUMARATE 160/4.5 mcg INHALER IH SCH (10:09)
[2022-04-17] MEDS: BICTEGRAV/EMTRICIT/TENOFOV (BIKTARVY) 50-200-25 MG TABLET PO SCH (10:09)
[2022-04-18] MEDS ORDERED: chlordiazePOXIDE HCL 10 MG CAPSULE PO SCH (05:00)
[2022-04-19] MEDS ORDERED: chlordiazePOXIDE HCL 10 MG CAPSULE PO ONE (05:00)
== END 2022-04-17 10:45 | disposition home or self-care (01) | DRG 774 ==
LOC: YASAS 09:25 → Y3N 10:42
PROVIDERS: ADMIT Allergy & Immunology; ATTEND Surgery
PROC: HZ2ZZZZ Detoxification Services for Substance Abuse Treatment (ICD-10-PCS; principal; 2022-04-14)
DX: F10.230 Alcohol dependence with withdrawal, uncomplicated (principal); F14.20 Cocaine dependence, uncomplicated; F17.210 Nicotine dependence, cigarettes, uncomplicated; Z21 Asymptomatic human immunodeficiency virus [HIV] infection status; F19.282 Other psychoactive substance dependence with psychoactive substance-induced sleep disorder; F32.9 Major depressive disorder, single episode, unspecified; E78.5 Hyperlipidemia, unspecified; I10 Essential (primary) hypertension; J43.8 Other emphysema; J45.20 Mild intermittent asthma, uncomplicated; K21.9 Gastro-esophageal reflux disease without esophagitis; M16.10 Unilateral primary osteoarthritis, unspecified hip; M54.50 Low back pain, unspecified; G89.29 Other chronic pain; Z86.19 Personal history of other infectious and parasitic diseases; Z88.1 Allergy status to other antibiotic agents; Z88.2 Allergy status to sulfonamides; Z88.8 Allergy status to other drugs, medicaments and biological substances; Z91.013 Allergy to seafood
CPT/HCPCS: 36415; 80053; 85027; 86593; 86780; 87811; C9803-CS; U0003; U0005

== ENCOUNTER 2022-07-18 18:23 | Inpatient (IN) | payer OTHER ==
[2022-07-18 19:29] VITALS: BMI 29.7
[2022-07-18] MEDS ORDERED: IBUPROFEN 400 MG TABLET (FP) PO PRN (20:29)
[2022-07-18] MEDS ORDERED: ACETAMINOPHEN 325 MG TABLET (FP) PO PRN (20:29)
[2022-07-18] MEDS ORDERED: BENZOCAINE/MENTHOL (CHLORASEPTIC ) LOZENGE MM PRN (20:29)
[2022-07-18] MEDS ORDERED: DICYCLOMINE HCL 10 MG CAPSULE PO PRN (20:29)
[2022-07-18] MEDS ORDERED: ONDANSETRON *ODT* 4 MG TABLET SL PRN (20:29)
[2022-07-18] MEDS ORDERED: NICOTINE 10 MG CARTRIDGE (INHALER) IH PRN (20:29)
[2022-07-18] MEDS ORDERED: IBUPROFEN 600 MG TABLET (FP) PO PRN (20:29)
[2022-07-18] MEDS ORDERED: MAGNESIUM HYDROX 2400MG/30ML ORAL SUSPENSION 30 ML CUP PO PRN (20:29)
[2022-07-18] MEDS ORDERED: MAG HYDROX/AL HYDROX/SIMETH 30 ML UNIT-DOSE CUP PO PRN (20:29)
[2022-07-18] MEDS ORDERED: POLYETHYLENE GLYCOL (HEALTHYLAX) 3350 17 GM PACKET PO PRN (20:29)
[2022-07-18] MEDS ORDERED: P-EPHED 60MG/TRIPROLIDI 2.5MG TABLET PO PRN (20:29)
[2022-07-18] MEDS ORDERED: BENZONATATE 200 MG CAPSULE PO PRN (20:29)
[2022-07-18] MEDS ORDERED: BISMUTH SUBSALICYLATE 524 MG/30 ML PO PRN (20:29)
[2022-07-18] MEDS ORDERED: LOPERAMIDE HCL 2 MG CAPSULE PO PRN (20:29)
[2022-07-18] MEDS ORDERED: guaiFENesin 600 MG TABLET.ER (FP) PO PRN (20:29)
[2022-07-18] MEDS ORDERED: SIMETHICONE 80 MG TAB.CHEW (FP) PO SCH (20:45)
[2022-07-18] MEDS ORDERED: PRENATAL VITAMINS W/ FOLIC ACID TABLET (FP) PO ONE (23:03)
[2022-07-18] MEDS: THIAMINE HCL 100 MG TABLET (FP) PO SCH (23:10)
[2022-07-19] MEDS: ALBUTEROL SO4 2.5/IPRATROPIUM 0.5 INH SOL 3 ML VIAL.NEB. NEB SCH ×6 (05:28→21:03)
[2022-07-19] MEDS: BUDESONIDE/FORMETEROL FUMARATE 160/4.5 mcg INHALER IH SCH ×3 (05:30→22:05)
[2022-07-19] MEDS: ATORVASTATIN CA 20 MG TABLET (FP) PO SCH ×2 (05:30→22:06)
[2022-07-19] MEDS ORDERED: ALBUTEROL SO4 HFA INHALER IH ONE (05:51)
[2022-07-19] MEDS: ALBUTEROL SO4 HFA INHALER IH PRN (05:53)
[2022-07-19] MEDS ORDERED: ALBUTEROL SO4 2.5/IPRATROPIUM 0.5 INH SOL 3 ML VIAL.NEB. NEB ONE (09:10)
[2022-07-19] MEDS: amLODIPine BESYLATE 10 MG TABLET (FP) PO SCH (10:58)
[2022-07-19] MEDS: BICTEGRAV/EMTRICIT/TENOFOV (BIKTARVY) 50-200-25 MG TABLET PO SCH (10:58)
[2022-07-19] MEDS: HYDROCHLOROTHIAZIDE 25 MG TABLET (FP) PO SCH (10:58)
[2022-07-19] MEDS: PRENATAL VITAMINS W/ FOLIC ACID TABLET (FP) PO SCH (10:59)
[2022-07-19 11:48] LABS: HEMATOCRIT 37.8 % (32.4-45.2); HEMOGLOBIN 12.6 GM/dL (10.7-15.3); MCHC 33.4 g/dl (32.0-36.0); MEAN CELL VOLUME 83.6 fl (80-96); MEAN PLT VOLUME 7.8 fl (7.5-11.1); PLATELET COUNT 291 10^3/uL (134-434); RBC 4.52 M/mm3 (3.60-5.2); RDW 15.5 % (11.6-15.6); WHITE BLOOD COUNT 3.5 K/mm3 (4.0-10.0)
[2022-07-19 12:10] LABS: CALCIUM 8.6 mg/dL (8.5-10.1)
[2022-07-19 12:11] LABS: BLOOD UREA NITROGEN 15.9 mg/dL (7-18)
[2022-07-19 12:13] LABS: CREATININE 0.9 mg/dL (0.55-1.3)
[2022-07-19 12:15] LABS: BILIRUBIN,TOTAL 0.6 mg/dL (0.2-1)
[2022-07-19] MEDS: MAG HYDROX/ALH/SMC/DPHA/LIDO 240 ML MOUTHWASH MM SCH ×3 (13:21→23:18)
[2022-07-19] MEDS ORDERED: chlordiazePOXIDE HCL 25 MG CAPSULE PO PRN (15:06)
[2022-07-19] MEDS ORDERED: NIFEdipine E.R. 30 MG TABLET PO SCH (16:00)
[2022-07-19] MEDS: predniSONE 20 MG TABLET (UD) PO SCH (17:20)
[2022-07-19] MEDS: PANTOPRAZOLE 40 MG TABLET PO SCH (17:21)
[2022-07-19] MEDS: chlordiazePOXIDE HCL 25 MG CAPSULE PO SCH ×2 (17:21→22:08)
[2022-07-19] MEDS: THIAMINE HCL 100 MG TABLET (FP) PO SCH (22:06)
[2022-07-19] MEDS: QUEtiapine FUMARATE 200 MG TABLET PO SCH (22:07)
[2022-07-20] MEDS: ALBUTEROL SO4 2.5/IPRATROPIUM 0.5 INH SOL 3 ML VIAL.NEB. NEB SCH ×4 (04:51→22:31)
[2022-07-20] MEDS: chlordiazePOXIDE HCL 25 MG CAPSULE PO SCH ×4 (05:49→22:28)
[2022-07-20] MEDS: MAG HYDROX/ALH/SMC/DPHA/LIDO 240 ML MOUTHWASH MM SCH ×4 (06:19→23:36)
[2022-07-20] MEDS ORDERED: PATIENT'S OWN MEDICATION (NON-FORMULARY) (Omeprazole 20 MG Capsule.Dr) PO SCH (10:00)
[2022-07-20] MEDS: predniSONE 20 MG TABLET (UD) PO SCH (10:51)
[2022-07-20] MEDS: BICTEGRAV/EMTRICIT/TENOFOV (BIKTARVY) 50-200-25 MG TABLET PO SCH (10:54)
[2022-07-20] MEDS: HYDROCHLOROTHIAZIDE 25 MG TABLET (FP) PO SCH (10:55)
[2022-07-20] MEDS: amLODIPine BESYLATE 10 MG TABLET (FP) PO SCH (10:55)
[2022-07-20] MEDS: PRENATAL VITAMINS W/ FOLIC ACID TABLET (FP) PO SCH (10:56)
[2022-07-20] MEDS: PANTOPRAZOLE 40 MG TABLET PO SCH (10:56)
[2022-07-20] MEDS: BUDESONIDE/FORMETEROL FUMARATE 160/4.5 mcg INHALER IH SCH ×2 (10:56→22:28)
[2022-07-20] MEDS: SERTRALINE HCL 50 MG TABLET (FP) PO SCH (10:57)
[2022-07-20] MEDS: ALBUTEROL SO4 HFA INHALER IH PRN ×2 (17:56→22:30)
[2022-07-20] MEDS: NICOTINE POLACRILEX 2 MG GUM BUC PRN (17:59)
[2022-07-20] MEDS ORDERED: cloNIDine HCL 0.1 MG TABLET PO ONE (19:21)
[2022-07-20] MEDS: MELATONIN 5 MG TABLETS PO PRN (21:12)
[2022-07-20] MEDS: THIAMINE HCL 100 MG TABLET (FP) PO SCH (21:12)
[2022-07-20] MEDS: QUEtiapine FUMARATE 200 MG TABLET PO SCH (21:12)
[2022-07-20] MEDS: ATORVASTATIN CA 20 MG TABLET (FP) PO SCH (21:12)
[2022-07-21] MEDS: ALBUTEROL SO4 2.5/IPRATROPIUM 0.5 INH SOL 3 ML VIAL.NEB. NEB SCH ×4 (04:40→22:21)
[2022-07-21] MEDS: chlordiazePOXIDE HCL 25 MG CAPSULE PO SCH ×4 (05:37→22:21)
[2022-07-21] MEDS: ALBUTEROL SO4 HFA INHALER IH PRN ×4 (05:38→22:22)
[2022-07-21] MEDS: MAG HYDROX/ALH/SMC/DPHA/LIDO 240 ML MOUTHWASH MM SCH ×4 (05:40→23:27)
[2022-07-21] MEDS: BUDESONIDE/FORMETEROL FUMARATE 160/4.5 mcg INHALER IH SCH ×2 (10:42→22:30)
[2022-07-21] MEDS: PRENATAL VITAMINS W/ FOLIC ACID TABLET (FP) PO SCH (10:43)
[2022-07-21] MEDS: PANTOPRAZOLE 40 MG TABLET PO SCH (10:43)
[2022-07-21] MEDS: HYDROCHLOROTHIAZIDE 25 MG TABLET (FP) PO SCH (10:43)
[2022-07-21] MEDS: BICTEGRAV/EMTRICIT/TENOFOV (BIKTARVY) 50-200-25 MG TABLET PO SCH (10:43)
[2022-07-21] MEDS: amLODIPine BESYLATE 10 MG TABLET (FP) PO SCH (10:43)
[2022-07-21] MEDS: predniSONE 20 MG TABLET (UD) PO SCH (10:43)
[2022-07-21] MEDS: SERTRALINE HCL 50 MG TABLET (FP) PO SCH (10:43)
[2022-07-21] MEDS: NICOTINE POLACRILEX 2 MG GUM BUC PRN ×2 (17:39→22:24)
[2022-07-21] MEDS ORDERED: cloNIDine HCL 0.1 MG TABLET PO ONE (18:34)
[2022-07-21] MEDS: ATORVASTATIN CA 20 MG TABLET (FP) PO SCH (22:21)
[2022-07-21] MEDS: THIAMINE HCL 100 MG TABLET (FP) PO SCH (22:21)
[2022-07-21] MEDS: QUEtiapine FUMARATE 200 MG TABLET PO SCH (22:21)
[2022-07-21] MEDS: MELATONIN 5 MG TABLETS PO PRN (22:21)
[2022-07-21] MEDS ORDERED: METOPROLOL TARTRATE 25 MG TABLET (FP) PO ONE (23:27)
[2022-07-22] MEDS ORDERED: chlordiazePOXIDE HCL 10 MG CAPSULE PO PRN
[2022-07-22] MEDS: ALBUTEROL SO4 2.5/IPRATROPIUM 0.5 INH SOL 3 ML VIAL.NEB. NEB SCH ×2 (04:44→10:21)
[2022-07-22] MEDS: chlordiazePOXIDE HCL 10 MG CAPSULE PO SCH ×4 (05:35→22:13)
[2022-07-22] MEDS: hydrOXYzine PAMOATE 25 MG CAPSULE (FP) PO PRN (05:36)
[2022-07-22] MEDS: MAG HYDROX/ALH/SMC/DPHA/LIDO 240 ML MOUTHWASH MM SCH ×4 (05:39→23:33)
[2022-07-22] MEDS: PRENATAL VITAMINS W/ FOLIC ACID TABLET (FP) PO SCH (10:20)
[2022-07-22] MEDS: BICTEGRAV/EMTRICIT/TENOFOV (BIKTARVY) 50-200-25 MG TABLET PO SCH (10:20)
[2022-07-22] MEDS: HYDROCHLOROTHIAZIDE 25 MG TABLET (FP) PO SCH (10:20)
[2022-07-22] MEDS: amLODIPine BESYLATE 10 MG TABLET (FP) PO SCH (10:20)
[2022-07-22] MEDS: PANTOPRAZOLE 40 MG TABLET PO SCH (10:20)
[2022-07-22] MEDS: predniSONE 20 MG TABLET (UD) PO SCH (10:20)
[2022-07-22] MEDS: BUDESONIDE/FORMETEROL FUMARATE 160/4.5 mcg INHALER IH SCH ×2 (10:21→22:13)
[2022-07-22] MEDS: SERTRALINE HCL 50 MG TABLET (FP) PO SCH (10:23)
[2022-07-22] MEDS: NICOTINE POLACRILEX 2 MG GUM BUC PRN (10:25)
[2022-07-22] MEDS ORDERED: cloNIDine HCL 0.1 MG TABLET PO SCH ×2 (11:45→14:00)
[2022-07-22] MEDS ORDERED: PENICILLIN G BENZATHINE 2,400,000 UNIT/4 ML PFS IM ONE (19:00)
[2022-07-22] MEDS: ATORVASTATIN CA 20 MG TABLET (FP) PO SCH (22:13)
[2022-07-22] MEDS: THIAMINE HCL 100 MG TABLET (FP) PO SCH (22:13)
[2022-07-22] MEDS: QUEtiapine FUMARATE 200 MG TABLET PO SCH (22:13)
[2022-07-23] MEDS: chlordiazePOXIDE HCL 10 MG CAPSULE PO SCH ×2 (05:51→17:29)
[2022-07-23] MEDS: MAG HYDROX/ALH/SMC/DPHA/LIDO 240 ML MOUTHWASH MM SCH ×4 (05:53→23:07)
[2022-07-23] MEDS: NICOTINE POLACRILEX 2 MG GUM BUC PRN ×3 (05:54→21:15)
[2022-07-23] MEDS: ALBUTEROL SO4 HFA INHALER IH PRN ×2 (08:15→21:16)
[2022-07-23] MEDS: amLODIPine BESYLATE 10 MG TABLET (FP) PO SCH (10:33)
[2022-07-23] MEDS: BICTEGRAV/EMTRICIT/TENOFOV (BIKTARVY) 50-200-25 MG TABLET PO SCH (10:33)
[2022-07-23] MEDS: predniSONE 20 MG TABLET (UD) PO SCH (10:33)
[2022-07-23] MEDS: SERTRALINE HCL 50 MG TABLET (FP) PO SCH (10:33)
[2022-07-23] MEDS: PANTOPRAZOLE 40 MG TABLET PO SCH (10:33)
[2022-07-23] MEDS: BUDESONIDE/FORMETEROL FUMARATE 160/4.5 mcg INHALER IH SCH ×2 (10:34→22:06)
[2022-07-23] MEDS: PRENATAL VITAMINS W/ FOLIC ACID TABLET (FP) PO SCH (10:34)
[2022-07-23] MEDS: HYDROCHLOROTHIAZIDE 25 MG TABLET (FP) PO SCH (10:34)
[2022-07-23] MEDS ORDERED: cloNIDine HCL 0.1 MG TABLET PO ONE (14:00)
[2022-07-23] MEDS: cloNIDine HCL 0.1 MG TABLET PO SCH ×2 (21:15→21:20)
[2022-07-23] MEDS: ATORVASTATIN CA 20 MG TABLET (FP) PO SCH (22:06)
[2022-07-23] MEDS: THIAMINE HCL 100 MG TABLET (FP) PO SCH (22:06)
[2022-07-23] MEDS: QUEtiapine FUMARATE 200 MG TABLET PO SCH (22:06)
[2022-07-23] MEDS: MELATONIN 5 MG TABLETS PO PRN (22:06)
[2022-07-24] MEDS ORDERED: chlordiazePOXIDE HCL 10 MG CAPSULE PO ONE (05:00)
[2022-07-24] MEDS: hydrOXYzine PAMOATE 25 MG CAPSULE (FP) PO PRN (06:05)
[2022-07-24] MEDS: MAG HYDROX/ALH/SMC/DPHA/LIDO 240 ML MOUTHWASH MM SCH ×2 (06:08→11:31)
[2022-07-24 08:57] VITALS: RESP 16
[2022-07-24] MEDS: BICTEGRAV/EMTRICIT/TENOFOV (BIKTARVY) 50-200-25 MG TABLET PO SCH (09:49)
[2022-07-24] MEDS: PANTOPRAZOLE 40 MG TABLET PO SCH (09:49)
[2022-07-24] MEDS: cloNIDine HCL 0.1 MG TABLET PO SCH (09:49)
[2022-07-24] MEDS: BUDESONIDE/FORMETEROL FUMARATE 160/4.5 mcg INHALER IH SCH (09:49)
[2022-07-24] MEDS: PRENATAL VITAMINS W/ FOLIC ACID TABLET (FP) PO SCH (09:49)
[2022-07-24] MEDS: amLODIPine BESYLATE 10 MG TABLET (FP) PO SCH (09:50)
[2022-07-24] MEDS: SERTRALINE HCL 50 MG TABLET (FP) PO SCH (09:50)
[2022-07-24] MEDS: HYDROCHLOROTHIAZIDE 25 MG TABLET (FP) PO SCH (09:50)
[2022-07-24 12:43] VITALS: BP 161/94; PULSE 75; TEMP 97.5
== END 2022-07-24 13:55 | disposition other institution (70) | DRG 774 ==
LOC: YASAS 18:23 → Y3N 07-19 09:43
PROVIDERS: ADMIT Allergy & Immunology; ATTEND Surgery
PROC: HZ2ZZZZ Detoxification Services for Substance Abuse Treatment (ICD-10-PCS; principal; 2022-07-19)
DX: F10.230 Alcohol dependence with withdrawal, uncomplicated (principal); F14.20 Cocaine dependence, uncomplicated; F17.210 Nicotine dependence, cigarettes, uncomplicated; F19.24 Other psychoactive substance dependence with psychoactive substance-induced mood disorder; B20 Human immunodeficiency virus [HIV] disease; J45.901 Unspecified asthma with (acute) exacerbation; I10 Essential (primary) hypertension; J30.9 Allergic rhinitis, unspecified; G47.00 Insomnia, unspecified; Z79.899 Other long term (current) drug therapy; Z86.19 Personal history of other infectious and parasitic diseases; Z88.1 Allergy status to other antibiotic agents; Z88.8 Allergy status to other drugs, medicaments and biological substances
CPT/HCPCS: 36415; 80053; 85027; 86593; 86780; 94640; C9803-CS; U0003; U0005

== ENCOUNTER 2022-07-24 14:06 | Inpatient (IN) | payer OTHER ==
[2022-07-24] MEDS ORDERED: guaiFENesin 600 MG TABLET.ER (FP) PO PRN (15:16)
[2022-07-24] MEDS ORDERED: LOPERAMIDE HCL 2 MG CAPSULE PO PRN (15:16)
[2022-07-24] MEDS ORDERED: POLYETHYLENE GLYCOL (HEALTHYLAX) 3350 17 GM PACKET PO PRN (15:16)
[2022-07-24] MEDS ORDERED: NALOXONE HCL (KLOXXADO) 8 MG SPRAY NS PRN (15:16)
[2022-07-24] MEDS ORDERED: BENZOCAINE/MENTHOL (CHLORASEPTIC ) LOZENGE MM PRN (15:16)
[2022-07-24] MEDS ORDERED: NALOXONE HCL 0.4 MG/ML VIAL IVPUSH PRN (15:16)
[2022-07-24] MEDS ORDERED: BENZONATATE 200 MG CAPSULE PO PRN (15:16)
[2022-07-24] MEDS ORDERED: ACETAMINOPHEN 325 MG TABLET (FP) PO PRN (15:16)
[2022-07-24] MEDS ORDERED: IBUPROFEN 400 MG TABLET (FP) PO PRN (15:16)
[2022-07-24] MEDS ORDERED: MAGNESIUM HYDROX 2400MG/30ML ORAL SUSPENSION 30 ML CUP PO PRN (15:16)
[2022-07-24] MEDS ORDERED: MAG HYDROX/AL HYDROX/SIMETH 30 ML UNIT-DOSE CUP PO PRN (15:16)
[2022-07-24] MEDS: ATORVASTATIN CA 20 MG TABLET (FP) PO SCH (21:08)
[2022-07-24] MEDS: MELATONIN 5 MG TABLETS PO SCH (21:08)
[2022-07-24] MEDS: QUEtiapine FUMARATE 200 MG TABLET PO SCH (21:08)
[2022-07-24] MEDS: BUDESONIDE/FORMETEROL FUMARATE 160/4.5 mcg INHALER IH SCH (21:08)
[2022-07-24] MEDS: THIAMINE HCL 100 MG TABLET (FP) PO SCH (21:08)
[2022-07-24] MEDS: METHOCARBAMOL 500 MG TABLET PO PRN (21:12)
[2022-07-25 07:23] VITALS: RESP 18
[2022-07-25] MEDS: BICTEGRAV/EMTRICIT/TENOFOV (BIKTARVY) 50-200-25 MG TABLET PO SCH (09:58)
[2022-07-25] MEDS ORDERED: NIFEdipine E.R. 30 MG TABLET PO SCH (10:00)
[2022-07-25] MEDS: HYDROCHLOROTHIAZIDE 25 MG TABLET (FP) PO SCH (10:02)
[2022-07-25] MEDS: amLODIPine BESYLATE 10 MG TABLET (FP) PO SCH (10:02)
[2022-07-25] MEDS: PRENATAL VITAMINS W/ FOLIC ACID TABLET (FP) PO SCH (10:02)
[2022-07-25] MEDS: BUDESONIDE/FORMETEROL FUMARATE 160/4.5 mcg INHALER IH SCH ×2 (10:02→21:02)
[2022-07-25] MEDS: PANTOPRAZOLE 40 MG TABLET PO SCH (10:02)
[2022-07-25] MEDS: SERTRALINE HCL 50 MG TABLET (FP) PO SCH (10:03)
[2022-07-25] MEDS: predniSONE 20 MG TABLET (UD) PO SCH (15:52)
[2022-07-25] MEDS: MELATONIN 5 MG TABLETS PO SCH (21:02)
[2022-07-25] MEDS: THIAMINE HCL 100 MG TABLET (FP) PO SCH (21:02)
[2022-07-25] MEDS: ATORVASTATIN CA 20 MG TABLET (FP) PO SCH (21:02)
[2022-07-25] MEDS: QUEtiapine FUMARATE 200 MG TABLET PO SCH (21:03)
[2022-07-25] MEDS: hydrOXYzine PAMOATE 25 MG CAPSULE (FP) PO PRN (21:03)
[2022-07-25] MEDS: METHOCARBAMOL 500 MG TABLET PO PRN (21:05)
[2022-07-26] MEDS: METHOCARBAMOL 500 MG TABLET PO PRN ×2 (08:35→21:10)
[2022-07-26] MEDS: BUDESONIDE/FORMETEROL FUMARATE 160/4.5 mcg INHALER IH SCH ×3 (10:28→21:23)
[2022-07-26] MEDS: amLODIPine BESYLATE 10 MG TABLET (FP) PO SCH (10:30)
[2022-07-26] MEDS: predniSONE 20 MG TABLET (UD) PO SCH (10:30)
[2022-07-26] MEDS: PRENATAL VITAMINS W/ FOLIC ACID TABLET (FP) PO SCH (10:31)
[2022-07-26] MEDS: PANTOPRAZOLE 40 MG TABLET PO SCH (10:31)
[2022-07-26] MEDS: BICTEGRAV/EMTRICIT/TENOFOV (BIKTARVY) 50-200-25 MG TABLET PO SCH (10:31)
[2022-07-26] MEDS: HYDROCHLOROTHIAZIDE 25 MG TABLET (FP) PO SCH (10:31)
[2022-07-26] MEDS: SERTRALINE HCL 50 MG TABLET (FP) PO SCH (10:33)
[2022-07-26] MEDS: THIAMINE HCL 100 MG TABLET (FP) PO SCH (21:10)
[2022-07-26] MEDS: MELATONIN 5 MG TABLETS PO SCH (21:10)
[2022-07-26] MEDS: QUEtiapine FUMARATE 200 MG TABLET PO SCH (21:10)
[2022-07-26] MEDS: ATORVASTATIN CA 20 MG TABLET (FP) PO SCH (21:10)
[2022-07-26] MEDS: NICOTINE POLACRILEX 2 MG GUM BUC PRN (21:11)
[2022-07-26] MEDS: ALBUTEROL SO4 HFA INHALER IH PRN (21:24)
[2022-07-27] MEDS: amLODIPine BESYLATE 10 MG TABLET (FP) PO SCH (09:50)
[2022-07-27] MEDS: BICTEGRAV/EMTRICIT/TENOFOV (BIKTARVY) 50-200-25 MG TABLET PO SCH (09:50)
[2022-07-27] MEDS: PANTOPRAZOLE 40 MG TABLET PO SCH (09:50)
[2022-07-27] MEDS: HYDROCHLOROTHIAZIDE 25 MG TABLET (FP) PO SCH (09:50)
[2022-07-27] MEDS: SERTRALINE HCL 50 MG TABLET (FP) PO SCH (09:50)
[2022-07-27] MEDS: METHOCARBAMOL 500 MG TABLET PO PRN ×2 (09:51→21:03)
[2022-07-27] MEDS: predniSONE 20 MG TABLET (UD) PO SCH (09:51)
[2022-07-27] MEDS: PRENATAL VITAMINS W/ FOLIC ACID TABLET (FP) PO SCH (09:52)
[2022-07-27] MEDS: NICOTINE POLACRILEX 2 MG GUM BUC PRN ×2 (09:53→18:05)
[2022-07-27] MEDS: BUDESONIDE/FORMETEROL FUMARATE 160/4.5 mcg INHALER IH SCH ×2 (13:34→22:59)
[2022-07-27] MEDS ORDERED: COLLOIDAL OATMEAL 1 BAR EACH TP PRN (14:13)
[2022-07-27] MEDS: MELATONIN 5 MG TABLETS PO SCH (21:02)
[2022-07-27] MEDS: ATORVASTATIN CA 20 MG TABLET (FP) PO SCH (21:02)
[2022-07-27] MEDS: QUEtiapine FUMARATE 200 MG TABLET PO SCH (21:02)
[2022-07-27] MEDS: THIAMINE HCL 100 MG TABLET (FP) PO SCH (21:02)
[2022-07-28] MEDS: PRENATAL VITAMINS W/ FOLIC ACID TABLET (FP) PO SCH (10:09)
[2022-07-28] MEDS: amLODIPine BESYLATE 10 MG TABLET (FP) PO SCH (10:10)
[2022-07-28] MEDS: PANTOPRAZOLE 40 MG TABLET PO SCH (10:10)
[2022-07-28] MEDS: BICTEGRAV/EMTRICIT/TENOFOV (BIKTARVY) 50-200-25 MG TABLET PO SCH (10:10)
[2022-07-28] MEDS: SERTRALINE HCL 50 MG TABLET (FP) PO SCH (10:10)
[2022-07-28] MEDS: NICOTINE POLACRILEX 2 MG GUM BUC PRN ×3 (10:11→16:41)
[2022-07-28] MEDS: HYDROCHLOROTHIAZIDE 25 MG TABLET (FP) PO SCH (10:11)
[2022-07-28] MEDS: BUDESONIDE/FORMETEROL FUMARATE 160/4.5 mcg INHALER IH SCH ×2 (10:11→21:04)
[2022-07-28] MEDS: METHOCARBAMOL 500 MG TABLET PO PRN ×2 (10:12→16:41)
[2022-07-28] MEDS: IBUPROFEN 600 MG TABLET (FP) PO PRN (18:43)
[2022-07-28] MEDS: THIAMINE HCL 100 MG TABLET (FP) PO SCH (21:03)
[2022-07-28] MEDS: QUEtiapine FUMARATE 200 MG TABLET PO SCH (21:03)
[2022-07-28] MEDS: ATORVASTATIN CA 20 MG TABLET (FP) PO SCH (21:03)
[2022-07-28] MEDS: MELATONIN 5 MG TABLETS PO SCH (21:03)
[2022-07-29] MEDS: IBUPROFEN 600 MG TABLET (FP) PO PRN (06:49)
[2022-07-29] MEDS: hydrOXYzine PAMOATE 25 MG CAPSULE (FP) PO PRN (06:49)
[2022-07-29] MEDS: BICTEGRAV/EMTRICIT/TENOFOV (BIKTARVY) 50-200-25 MG TABLET PO SCH (10:22)
[2022-07-29] MEDS: PANTOPRAZOLE 40 MG TABLET PO SCH (10:23)
[2022-07-29] MEDS: BUDESONIDE/FORMETEROL FUMARATE 160/4.5 mcg INHALER IH SCH ×2 (10:23→21:10)
[2022-07-29] MEDS: HYDROCHLOROTHIAZIDE 25 MG TABLET (FP) PO SCH (10:23)
[2022-07-29] MEDS: amLODIPine BESYLATE 10 MG TABLET (FP) PO SCH (10:23)
[2022-07-29] MEDS: PRENATAL VITAMINS W/ FOLIC ACID TABLET (FP) PO SCH (10:23)
[2022-07-29] MEDS: SERTRALINE HCL 50 MG TABLET (FP) PO SCH (10:24)
[2022-07-29] MEDS: NICOTINE POLACRILEX 2 MG GUM BUC PRN ×3 (10:25→18:15)
[2022-07-29] MEDS: METHOCARBAMOL 500 MG TABLET PO PRN ×2 (10:26→18:14)
[2022-07-29] MEDS: MELATONIN 5 MG TABLETS PO SCH (21:09)
[2022-07-29] MEDS: THIAMINE HCL 100 MG TABLET (FP) PO SCH (21:10)
[2022-07-29] MEDS: QUEtiapine FUMARATE 200 MG TABLET PO SCH (21:10)
[2022-07-29] MEDS: ATORVASTATIN CA 20 MG TABLET (FP) PO SCH (21:10)
[2022-07-29] MEDS: ALBUTEROL SO4 HFA INHALER IH PRN (21:12)
[2022-07-30 07:17] VITALS: TEMP 97.5
[2022-07-30] MEDS: PANTOPRAZOLE 40 MG TABLET PO SCH (09:06)
[2022-07-30] MEDS: BICTEGRAV/EMTRICIT/TENOFOV (BIKTARVY) 50-200-25 MG TABLET PO SCH (09:06)
[2022-07-30] MEDS: HYDROCHLOROTHIAZIDE 25 MG TABLET (FP) PO SCH (09:07)
[2022-07-30] MEDS: SERTRALINE HCL 50 MG TABLET (FP) PO SCH (09:07)
[2022-07-30] MEDS: PRENATAL VITAMINS W/ FOLIC ACID TABLET (FP) PO SCH (09:07)
[2022-07-30] MEDS: amLODIPine BESYLATE 10 MG TABLET (FP) PO SCH (09:07)
[2022-07-30] MEDS: BUDESONIDE/FORMETEROL FUMARATE 160/4.5 mcg INHALER IH SCH (09:07)
[2022-07-30 09:11] VITALS: BP 150/99; PULSE 83
== END 2022-07-30 09:17 | disposition home or self-care (01) | DRG 772 ==
LOC: YASAS 14:06 → Y5N 14:07
PROVIDERS: ADMIT Allergy & Immunology; ATTEND Family Medicine
PROC: HZ42ZZZ Group Counseling for Substance Abuse Treatment, Cognitive-Behavioral (ICD-10-PCS; principal; 2022-07-24)
DX: F10.20 Alcohol dependence, uncomplicated (principal); F14.20 Cocaine dependence, uncomplicated; F17.210 Nicotine dependence, cigarettes, uncomplicated; F19.280 Other psychoactive substance dependence with psychoactive substance-induced anxiety disorder; F19.282 Other psychoactive substance dependence with psychoactive substance-induced sleep disorder; F41.9 Anxiety disorder, unspecified; F32.A Depression, unspecified; B20 Human immunodeficiency virus [HIV] disease; E78.5 Hyperlipidemia, unspecified; I10 Essential (primary) hypertension; J44.9 Chronic obstructive pulmonary disease, unspecified; J45.20 Mild intermittent asthma, uncomplicated; K21.9 Gastro-esophageal reflux disease without esophagitis; L30.9 Dermatitis, unspecified; B35.3 Tinea pedis; M16.11 Unilateral primary osteoarthritis, right hip; R76.8 Other specified abnormal immunological findings in serum; Z79.899 Other long term (current) drug therapy; Z86.19 Personal history of other infectious and parasitic diseases; Z88.1 Allergy status to other antibiotic agents; Z88.8 Allergy status to other drugs, medicaments and biological substances
CPT/HCPCS: 36415; 86803

== ENCOUNTER 2023-04-22 12:08 | Inpatient (IN) | payer OTHER ==
[2023-04-22 13:04] VITALS: BMI 26.6
[2023-04-22] MEDS ORDERED: chlordiazePOXIDE HCL 25 MG CAPSULE PO PRN (15:39)
[2023-04-22] MEDS ORDERED: IBUPROFEN 400 MG TABLET (FP) PO PRN (15:39)
[2023-04-22] MEDS ORDERED: NALOXONE HCL 0.4 MG/ML VIAL IM PRN (15:39)
[2023-04-22] MEDS ORDERED: ACETAMINOPHEN 325 MG TABLET (FP) PO PRN (15:39)
[2023-04-22] MEDS ORDERED: BENZOCAINE/MENTHOL (CHLORASEPTIC ) LOZENGE MM PRN (15:39)
[2023-04-22] MEDS ORDERED: DICYCLOMINE HCL 10 MG CAPSULE PO PRN (15:39)
[2023-04-22] MEDS ORDERED: guaiFENesin 600 MG TABLET.ER (FP) PO PRN (15:39)
[2023-04-22] MEDS ORDERED: MAGNESIUM HYDROX 2400MG/30ML ORAL SUSPENSION 30 ML CUP PO PRN (15:39)
[2023-04-22] MEDS ORDERED: ONDANSETRON *ODT* 4 MG TABLET SL PRN (15:39)
[2023-04-22] MEDS ORDERED: IBUPROFEN 600 MG TABLET (FP) PO PRN (15:39)
[2023-04-22] MEDS ORDERED: NALOXONE HCL (KLOXXADO) 8 MG SPRAY NS PRN (15:39)
[2023-04-22] MEDS ORDERED: BISMUTH SUBSALICYLATE 262 MG/15 ML BTL PO PRN (15:39)
[2023-04-22] MEDS ORDERED: MAG HYDROX/AL HYDROX/SIMETH 30 ML UNIT-DOSE CUP PO PRN (15:39)
[2023-04-22] MEDS ORDERED: LOPERAMIDE HCL 2 MG CAPSULE PO PRN (15:39)
[2023-04-22] MEDS ORDERED: POLYETHYLENE GLYCOL (HEALTHYLAX) 3350 17 GM PACKET PO PRN (15:39)
[2023-04-22] MEDS ORDERED: BENZONATATE 200 MG CAPSULE PO PRN (15:39)
[2023-04-22] MEDS ORDERED: METOPROLOL TARTRATE 50 MG TABLET (FP) PO ONE (17:12)
[2023-04-22] MEDS: chlordiazePOXIDE HCL 25 MG CAPSULE PO SCH ×2 (17:22→22:10)
[2023-04-22] MEDS: hydrOXYzine PAMOATE 25 MG CAPSULE (FP) PO PRN (17:22)
[2023-04-22] MEDS: PRENATAL VITAMINS W/ FOLIC ACID TABLET (FP) PO SCH (17:23)
[2023-04-22] MEDS: NICOTINE 14 MG/24 HOURS TOPICAL PATCH TD SCH (17:24)
[2023-04-22] MEDS: THIAMINE HCL 100 MG TABLET (FP) PO SCH (22:09)
[2023-04-22] MEDS: MELATONIN 5 MG TABLETS PO SCH (22:10)
[2023-04-22] MEDS: ALBUTEROL SO4 HFA INHALER IH PRN (22:10)
[2023-04-22] MEDS: METHOCARBAMOL 500 MG TABLET PO PRN (22:10)
[2023-04-23] MEDS: chlordiazePOXIDE HCL 25 MG CAPSULE PO SCH ×4 (05:06→22:58)
[2023-04-23] MEDS: hydrOXYzine PAMOATE 25 MG CAPSULE (FP) PO PRN (05:06)
[2023-04-23] MEDS: METHOCARBAMOL 500 MG TABLET PO PRN (05:06)
[2023-04-23] MEDS ORDERED: cloNIDine HCL 0.1 MG TABLET PO ONE (08:01)
[2023-04-23 08:36] LABS: HEMATOCRIT 38.8 % (32.4-45.2); HEMOGLOBIN 12.7 GM/dL (10.7-15.3); MCH 27.4 pg (25.7-33.7); MCHC 32.8 g/dl (32.0-36.0); MEAN CELL VOLUME 83.7 fl (80-96); MEAN PLT VOLUME 7.8 fl (7.5-11.1); PLATELET COUNT 239 10^3/uL (134-434); RBC 4.64 M/mm3 (3.60-5.2); RDW 15.3 % (11.6-15.6); WHITE BLOOD COUNT 3.8 K/mm3 (4.0-10.0)
[2023-04-23 08:46] LABS: CHLORIDE 108 mmol/L (98-107); POTASSIUM 3.5 mmol/L (3.5-5.1); SODIUM 140 mmol/L (136-145)
[2023-04-23 08:48] LABS: CALCIUM 8.5 mg/dL (8.5-10.1)
[2023-04-23 08:49] LABS: ALBUMIN 2.8 g/dl (3.4-5.0); ANION GAP 6 mmol/L (4-13); BLOOD UREA NITROGEN 16.3 mg/dL (7-18); CO2 27 mmol/L (21-32); GLUCOSE,RANDOM 80 mg/dL (74-106)
[2023-04-23] MEDS: ALBUTEROL SO4 HFA INHALER IH PRN (08:49)
[2023-04-23 08:51] LABS: CREATININE 1.2 mg/dL (0.55-1.3); SGOT/AST 16 U/L (15-37)
[2023-04-23 08:52] LABS: SGPT/ALT 16 U/L (13-61)
[2023-04-23 08:53] LABS: BILIRUBIN,TOTAL 0.3 mg/dL (0.2-1); TOT PROT 7.3 g/dl (6.4-8.2)
[2023-04-23 08:54] LABS: ALK PHOS 101 U/L (45-117)
[2023-04-23] MEDS: NICOTINE 14 MG/24 HOURS TOPICAL PATCH TD SCH (10:24)
[2023-04-23] MEDS: PRENATAL VITAMINS W/ FOLIC ACID TABLET (FP) PO SCH (10:24)
[2023-04-23] MEDS ORDERED: ALBUTEROL SO4 HFA INHALER IH PRN (12:13)
[2023-04-23] MEDS: NIFEdipine E.R 60 MG TABLET PO SCH (13:12)
[2023-04-23] MEDS: PANTOPRAZOLE 20 MG TABLET PO SCH (13:12)
[2023-04-23] MEDS: BICTEGRAV/EMTRICIT/TENOFOV (BIKTARVY) 50-200-25 MG TABLET PO SCH (13:12)
[2023-04-23] MEDS: LACTULOSE 20 GM/30 ML UDC (FOR ORAL USE ONLY) PO SCH (22:57)
[2023-04-23] MEDS: ATORVASTATIN CA 40 MG TABLET (FP) PO SCH (22:57)
[2023-04-23] MEDS: QUEtiapine FUMARATE 200 MG TABLET PO SCH (22:57)
[2023-04-23] MEDS: MELATONIN 5 MG TABLETS PO SCH (22:58)
[2023-04-23] MEDS: THIAMINE HCL 100 MG TABLET (FP) PO SCH (22:58)
[2023-04-24] MEDS: LACTULOSE 20 GM/30 ML UDC (FOR ORAL USE ONLY) PO SCH ×3 (05:32→22:15)
[2023-04-24] MEDS: chlordiazePOXIDE HCL 25 MG CAPSULE PO SCH ×4 (05:32→22:14)
[2023-04-24] MEDS: ALBUTEROL SO4 HFA INHALER IH PRN ×3 (06:37→22:15)
[2023-04-24] MEDS: BICTEGRAV/EMTRICIT/TENOFOV (BIKTARVY) 50-200-25 MG TABLET PO SCH (07:11)
[2023-04-24] MEDS: PRENATAL VITAMINS W/ FOLIC ACID TABLET (FP) PO SCH (10:32)
[2023-04-24] MEDS: SERTRALINE HCL 50 MG TABLET (FP) PO SCH (10:33)
[2023-04-24] MEDS: NIFEdipine E.R 60 MG TABLET PO SCH (10:33)
[2023-04-24] MEDS: PANTOPRAZOLE 20 MG TABLET PO SCH (10:33)
[2023-04-24] MEDS: NICOTINE 14 MG/24 HOURS TOPICAL PATCH TD SCH (10:38)
[2023-04-24] MEDS ORDERED: amLODIPine BESYLATE 5 MG TABLET (FP) PO ONE (20:29)
[2023-04-24] MEDS: QUEtiapine FUMARATE 200 MG TABLET PO SCH (22:14)
[2023-04-24] MEDS: THIAMINE HCL 100 MG TABLET (FP) PO SCH (22:15)
[2023-04-24] MEDS: ATORVASTATIN CA 40 MG TABLET (FP) PO SCH (22:15)
[2023-04-24] MEDS: MELATONIN 5 MG TABLETS PO SCH (22:15)
[2023-04-25] MEDS ORDERED: chlordiazePOXIDE HCL 10 MG CAPSULE PO PRN
[2023-04-25] MEDS: LACTULOSE 20 GM/30 ML UDC (FOR ORAL USE ONLY) PO SCH ×3 (06:00→22:01)
[2023-04-25] MEDS: chlordiazePOXIDE HCL 10 MG CAPSULE PO SCH ×4 (06:00→22:02)
[2023-04-25] MEDS: BICTEGRAV/EMTRICIT/TENOFOV (BIKTARVY) 50-200-25 MG TABLET PO SCH (07:44)
[2023-04-25] MEDS: PANTOPRAZOLE 20 MG TABLET PO SCH (10:34)
[2023-04-25] MEDS: SERTRALINE HCL 50 MG TABLET (FP) PO SCH (10:34)
[2023-04-25] MEDS: NIFEdipine E.R 60 MG TABLET PO SCH (10:34)
[2023-04-25] MEDS: PRENATAL VITAMINS W/ FOLIC ACID TABLET (FP) PO SCH (10:34)
[2023-04-25] MEDS: NICOTINE 14 MG/24 HOURS TOPICAL PATCH TD SCH (10:34)
[2023-04-25] MEDS: hydrOXYzine PAMOATE 25 MG CAPSULE (FP) PO PRN (18:13)
[2023-04-25] MEDS: QUEtiapine FUMARATE 200 MG TABLET PO SCH (22:01)
[2023-04-25] MEDS: MELATONIN 5 MG TABLETS PO SCH (22:01)
[2023-04-25] MEDS: THIAMINE HCL 100 MG TABLET (FP) PO SCH (22:01)
[2023-04-25] MEDS: ATORVASTATIN CA 40 MG TABLET (FP) PO SCH (22:01)
[2023-04-26] MEDS: chlordiazePOXIDE HCL 10 MG CAPSULE PO SCH ×2 (05:45→17:29)
[2023-04-26] MEDS: LACTULOSE 20 GM/30 ML UDC (FOR ORAL USE ONLY) PO SCH ×2 (05:45→14:49)
[2023-04-26] MEDS: BICTEGRAV/EMTRICIT/TENOFOV (BIKTARVY) 50-200-25 MG TABLET PO SCH (07:25)
[2023-04-26] MEDS: NIFEdipine E.R 60 MG TABLET PO SCH (09:52)
[2023-04-26] MEDS: PRENATAL VITAMINS W/ FOLIC ACID TABLET (FP) PO SCH (09:52)
[2023-04-26] MEDS: PANTOPRAZOLE 20 MG TABLET PO SCH (09:52)
[2023-04-26] MEDS: SERTRALINE HCL 50 MG TABLET (FP) PO SCH (09:52)
[2023-04-26] MEDS: NICOTINE 14 MG/24 HOURS TOPICAL PATCH TD SCH (09:52)
[2023-04-26] MEDS: HYDROCHLOROTHIAZIDE 25 MG TABLET (FP) PO SCH (10:41)
[2023-04-26] MEDS: hydrOXYzine PAMOATE 25 MG CAPSULE (FP) PO PRN (13:22)
[2023-04-26] MEDS ORDERED: cloNIDine HCL 0.1 MG TABLET PO ONE ×2 (13:25→18:55)
[2023-04-26] MEDS: NICOTINE POLACRILEX 2 MG GUM BUC PRN ×3 (13:26→22:15)
[2023-04-26] MEDS ORDERED: NICOTINE POLACRILEX 2 MG GUM BUC PRN (13:26)
[2023-04-26] MEDS: ATORVASTATIN CA 40 MG TABLET (FP) PO SCH (22:14)
[2023-04-26] MEDS: THIAMINE HCL 100 MG TABLET (FP) PO SCH (22:15)
[2023-04-26] MEDS: MELATONIN 5 MG TABLETS PO SCH (22:15)
[2023-04-26] MEDS: QUEtiapine FUMARATE 200 MG TABLET PO SCH (22:15)
[2023-04-27] MEDS ORDERED: chlordiazePOXIDE HCL 10 MG CAPSULE PO ONE (05:00)
[2023-04-27] MEDS: BICTEGRAV/EMTRICIT/TENOFOV (BIKTARVY) 50-200-25 MG TABLET PO SCH (07:48)
[2023-04-27] MEDS: NICOTINE 14 MG/24 HOURS TOPICAL PATCH TD SCH (09:34)
[2023-04-27] MEDS: HYDROCHLOROTHIAZIDE 25 MG TABLET (FP) PO SCH (09:34)
[2023-04-27] MEDS: PRENATAL VITAMINS W/ FOLIC ACID TABLET (FP) PO SCH (09:34)
[2023-04-27] MEDS: NIFEdipine E.R 60 MG TABLET PO SCH (09:35)
[2023-04-27] MEDS: PANTOPRAZOLE 20 MG TABLET PO SCH (09:35)
[2023-04-27] MEDS: SERTRALINE HCL 50 MG TABLET (FP) PO SCH (09:35)
[2023-04-27 09:47] VITALS: PULSE 76; RESP 18; TEMP 97.7
[2023-04-27 09:50] VITALS: BP 177/119
[2023-04-27] MEDS: ALBUTEROL SO4 HFA INHALER IH PRN (09:54)
== END 2023-04-27 10:08 | disposition home or self-care (01) | DRG 774 ==
LOC: YASAS 12:08 → Y3N 16:32
PROVIDERS: ADMIT Allergy & Immunology; ATTEND Surgery
PROC: HZ2ZZZZ Detoxification Services for Substance Abuse Treatment (ICD-10-PCS; principal; 2023-04-22)
DX: F10.230 Alcohol dependence with withdrawal, uncomplicated (principal); F14.20 Cocaine dependence, uncomplicated; F12.20 Cannabis dependence, uncomplicated; F17.210 Nicotine dependence, cigarettes, uncomplicated; F19.24 Other psychoactive substance dependence with psychoactive substance-induced mood disorder; F41.8 Other specified anxiety disorders; Z21 Asymptomatic human immunodeficiency virus [HIV] infection status; E72.20 Disorder of urea cycle metabolism, unspecified; I10 Essential (primary) hypertension; R76.8 Other specified abnormal immunological findings in serum; Z86.19 Personal history of other infectious and parasitic diseases; Z88.1 Allergy status to other antibiotic agents; Z88.8 Allergy status to other drugs, medicaments and biological substances
CPT/HCPCS: 36415; 80053; 80307; 82140; 83690; 85027; 86593; 86780; 87635